=== PATIENT | female | born 1950 | race Caucasian/White ===

== ENCOUNTER → 2017-01-16 | Outpatient (CLI) | payer MEDICARE, BC ==
[2017-01-16 09:24] LABS: CH 26.9; CHCM 30.8; HCT 41.2 % (34.0-46.0); HDW 2.58; HGB 12.6 gm/dL (11.4-16.0); Hypochromasia Slight; MCH 26.8 pg (25.0-35.0); MCHC 30.7 g/dL (31.0-37.0); MCV 87.5 fL (80.0-100.0); Mean Platelet Volume 7.3; RBC 4.71 m/uL (3.80-5.40); RDW 14.3 % (11.5-15.5); WBC 5.4 k/uL (3.8-10.6)
[2017-01-16 10:31] LABS: Appearance,Urine Clear (Clear); Bilirubin,Urine Negative (Negative); Glucose,Urine (UA) Negative (Negative); Ketones,Urine Negative (Negative); Leukocyte Esterase,Urine Negative (Negative); Nitrite,Urine Negative (Negative); Protein,Urine Negative (Negative); Specific Gravity,Urine 1.019 (1.001-1.035); UA Billing (MACRO vs. MICRO) CHEM; Urobilinogen,Urine <2.0 mg/dL (<2.0)
[2017-01-16 10:43] LABS: Anion Gap 10 mmol/L; Blood Urea Nitrogen 31 mg/dL (7-17); Calcium 9.6 mg/dL (8.4-10.2); Carbon Dioxide 30 mmol/L (22-30); Chloride 103 mmol/L (98-107); Glucose 129 mg/dL (74-99); Iron 54 ug/dL (37-170); Magnesium 1.8 mg/dL (1.6-2.3); Non-African American GFR(MDRD) 55 (>60 ml/min/1.73 sqM); Phosphorous 3.9 mg/dL (2.5-4.5); Potassium 4.7 mmol/L (3.5-5.1); Sodium 143 mmol/L (137-145)
[2017-01-16 10:51] LABS: % Iron Saturation 18.9 % (20-50); Total Iron Binding Capacity 285 ug/dL (265-497)
[2017-01-16 11:31] LABS: Hemoglobin A1C 7.4 % (4.2-6.1)
== END | disposition home or self-care (01) ==
LOC: LABWHC1 08:41
PROVIDERS: ATTEND Nurse Practitioner Family
DX: N18.3 Chronic kidney disease, stage 3 (moderate) (principal); N39.0 Urinary tract infection, site not specified; N25.81 Secondary hyperparathyroidism of renal origin; E55.9 Vitamin D deficiency, unspecified; M10.9 Gout, unspecified; D63.1 Anemia in chronic kidney disease; Z94.0 Kidney transplant status
CPT/HCPCS: 36415; 80048; 80197; 81003; 82043; 82306; 82728; 83036; 83540; 83550; 83735; 83970; 84100; 84550; 85027; 87086

== ENCOUNTER → 2017-01-20 | Outpatient (CLI) | payer MEDICARE, BC | END | disposition home or self-care (01) | LOC: LABWHC1 07:51 | PROVIDERS: ATTEND Internal Medicine Nephrology | DX: Z94.0 Kidney transplant status (principal) | CPT/HCPCS: 36415; 80197 ==

== ENCOUNTER → 2017-01-29 | Outpatient (CLI) | payer MEDICARE, BC | END | disposition home or self-care (01) | LOC: LABWHC1 08:34 | PROVIDERS: ATTEND Internal Medicine Nephrology | DX: Z48.22 Encounter for aftercare following kidney transplant (principal) | CPT/HCPCS: 36415; 80197 ==

== ENCOUNTER → 2017-02-06 | Outpatient (CLI) | payer MEDICARE, BC | END | disposition home or self-care (01) | LOC: LABWHC1 08:39 | PROVIDERS: ATTEND Nurse Practitioner Family | DX: Z48.22 Encounter for aftercare following kidney transplant (principal) | CPT/HCPCS: 36415; 80197 ==

== ENCOUNTER → 2017-02-15 | Outpatient (CLI) | payer MEDICARE, BC | END | disposition home or self-care (01) | LOC: LABWHC1 08:37 | PROVIDERS: ATTEND Internal Medicine Nephrology | DX: Z48.22 Encounter for aftercare following kidney transplant (principal); Z94.0 Kidney transplant status | CPT/HCPCS: 36415; 80197 ==

== ENCOUNTER → 2017-02-25 | Outpatient (CLI) | payer MEDICARE, BC | LOC: LABWHC1 08:42 | PROVIDERS: ATTEND Nurse Practitioner Family | DX: Z48.22 Encounter for aftercare following kidney transplant (principal); Z94.0 Kidney transplant status | CPT/HCPCS: 36415; 80197 ==

== ENCOUNTER → 2017-05-12 | Outpatient (CLI) | payer MEDICARE, BC ==
[2017-05-12 09:23] LABS: Basophils # (A) 0.1 k/uL (0-0.2); Basophils % (A) 2 %; CH 27.9; CHCM 32.1; Eosinophils # (A) 0.6 k/uL (0-0.7); Eosinophils % (A) 16 %; HCT 40.9 % (34.0-46.0); HDW 2.44; HGB 13.3 gm/dL (11.4-16.0); Luc # (Auto) 0.13; Luc % (Auto) 3; Lymphocytes # (A) 1.1 k/uL (1.0-4.8); Lymphocytes % (A) 29 %; MCH 28.4 pg (25.0-35.0); MCHC 32.5 g/dL (31.0-37.0); MCV 87.2 fL (80.0-100.0); Mean Platelet Volume 7.4; Monocytes # (A) 0.2 k/uL (0-1.0); Monocytes % (A) 5 %; Neutrophils # (A) 1.7 k/uL (1.3-7.7); Neutrophils % (A) 45 %; RBC 4.69 m/uL (3.80-5.40); RDW 13.3 % (11.5-15.5); WBC 3.7 k/uL (3.8-10.6)
[2017-05-12 10:24] LABS: Appearance,Urine Clear (Clear); Bilirubin,Urine Negative (Negative); Glucose,Urine (UA) Negative (Negative); Ketones,Urine Negative (Negative); Leukocyte Esterase,Urine Negative (Negative); Nitrite,Urine Negative (Negative); PH, Urine 6.5 (5.0-8.0); Protein,Urine Negative (Negative); Specific Gravity,Urine 1.017 (1.001-1.035); UA Billing (MACRO vs. MICRO) CHEM; Urobilinogen,Urine <2.0 mg/dL (<2.0)
[2017-05-12 11:38] LABS: Calcium 9.4 mg/dL (8.4-10.2); Magnesium 1.8 mg/dL (1.6-2.3); Phosphorous 4.1 mg/dL (2.5-4.5); Potassium 4.8 mmol/L (3.5-5.1); Uric Acid 5.7 mg/dL (3.7-7.4)
[2017-05-12 13:18] LABS: % Iron Saturation 15.5 % (20-50)
== END | disposition home or self-care (01) ==
LOC: LABWHC1 08:39
PROVIDERS: ATTEND Internal Medicine Nephrology
DX: D64.9 Anemia, unspecified (principal); E55.9 Vitamin D deficiency, unspecified; N25.81 Secondary hyperparathyroidism of renal origin; M10.9 Gout, unspecified; N39.0 Urinary tract infection, site not specified; Z94.0 Kidney transplant status
CPT/HCPCS: 36415; 80048; 80197; 81003; 82306; 82728; 83540; 83550; 83735; 83970; 84100; 84550; 85025

== ENCOUNTER → 2017-05-21 | Outpatient (CLI) | payer MEDICARE, BC ==
--- NOTE | 2017-05-24 10:12 | MM ---
Reason for exam: screening (asymptomatic). Last mammogram was performed 1 year and 11 months ago. History: Patient is postmenopausal and has history of other cancer at age 53. Family history of breast cancer in paternal aunt. Physical Findings: A clinical breast exam by your physician is recommended on an annual basis and results should be correlated with mammographic findings. MG 3D Screening Mammo W/Cad Bilateral CC and MLO view(s) were taken. XCCL view(s) were taken of the right breast. Prior study comparison: June 06, 2015, bilateral MG screening mammo w CAD. June 27, 2013, mammogram, performed at [facility]. There are scattered fibroglandular densities. Finding: There are stable typically benign calcifications. No significant changes in finding since June 06, 2015 and June 27, 2013. ASSESSMENT: Benign, BI-RAD 2 RECOMMENDATION: Routine screening mammogram of both breasts in 1 year.
== END | disposition home or self-care (01) ==
LOC: RADMAMWWP 13:07
PROVIDERS: ATTEND Family Medicine
DX: Z12.31 Encounter for screening mammogram for malignant neoplasm of breast (principal)
CPT/HCPCS: 77063; G0202

== ENCOUNTER → 2017-05-25 | Outpatient (CLI) | payer MEDICARE, BC | END | disposition home or self-care (01) | LOC: LABWHC1 08:37 | PROVIDERS: ATTEND Nurse Practitioner Family | DX: Z48.22 Encounter for aftercare following kidney transplant (principal); Z94.0 Kidney transplant status | CPT/HCPCS: 36415; 80197 ==

== ENCOUNTER → 2017-06-04 | Outpatient (CLI) | payer MEDICARE, BC | END | disposition home or self-care (01) | LOC: LABWHC1 08:37 | PROVIDERS: ATTEND Nurse Practitioner Family | DX: Z48.22 Encounter for aftercare following kidney transplant (principal); Z94.0 Kidney transplant status | CPT/HCPCS: 36415; 80197 ==

== ENCOUNTER → 2017-10-21 | Outpatient (CLI) | payer MEDICARE, BC ==
[2017-10-21 09:30] LABS: Appearance,Urine Cloudy (Clear); Bilirubin,Urine Negative (Negative); Blood,Urine Negative (Negative); Color,Urine Yellow; Glucose,Urine (UA) Negative (Negative); Ketones,Urine Negative (Negative); Leukocyte Esterase,Urine Trace (Negative); Mucus,Urine Rare /hpf; Nitrite,Urine Negative (Negative); PH, Urine 6.5 (5.0-8.0); Protein,Urine Negative (Negative); Specific Gravity,Urine 1.015 (1.001-1.035); Squamous Epithelial Cell,Urine 10 /hpf (0-4); Urobilinogen,Urine <2.0 mg/dL (<2.0); WBC,Urine 1 /hpf (0-5)
[2017-10-21 09:33] LABS: Calcium 9.7 mg/dL (8.4-10.2); Magnesium 1.7 mg/dL (1.6-2.3); Potassium 5.4 mmol/L (3.5-5.1)
[2017-10-21 10:10] LABS: Basophils # (A) 0.1 k/uL (0-0.2); Basophils % (A) 2 %; Eosinophils # (A) 0.3 k/uL (0-0.7); Eosinophils % (A) 8 %; HCT 41.4 % (34.0-46.0); HGB 13.3 gm/dL (11.4-16.0); Lymphocytes # (A) 1.1 k/uL (1.0-4.8); Lymphocytes % (A) 31 %; MCH 27.9 pg (25.0-35.0); Monocytes # (A) 0.3 k/uL (0-1.0); Monocytes % (A) 8 %; Neutrophils # (A) 1.8 k/uL (1.3-7.7); Neutrophils % (A) 50 %; Platelet Count 205 k/uL (150-450); RBC 4.76 m/uL (3.80-5.40); WBC 3.5 k/uL (3.8-10.6)
[2017-10-21 16:25] LABS: Hemoglobin A1C 8.7 % (4.0-6.0)
[2017-10-21 17:06] LABS: Iron Saturation 28.66 (12.00-45.00)
[2017-10-21 17:13] LABS: Vitamin D 25 Hydroxy 34.5 ng/mL (30.0-100.0)
[2017-10-21 18:17] LABS: Parathyroid Hormone Intact 48.7 pg/mL (14.0-72.0)
== END | disposition home or self-care (01) ==
LOC: LABWHC1 08:34
PROVIDERS: ATTEND Nurse Practitioner Family
DX: E11.65 Type 2 diabetes mellitus with hyperglycemia (principal); D64.9 Anemia, unspecified; E55.9 Vitamin D deficiency, unspecified; M10.9 Gout, unspecified; Z94.0 Kidney transplant status
CPT/HCPCS: 36415; 80048; 80197; 81001; 82306; 82728; 83036; 83540; 83550; 83735; 83970; 84100; 84550; 85025

== ENCOUNTER 2017-11-26 03:52 | Inpatient (IN) | payer MEDICARE, BC ==
[2017-11-26] MEDS ORDERED: ACETAMINOPHEN TAB 500 MG TAB PO STA (04:29)
--- NOTE | 2017-11-26 04:32 | ED ---
General Adult HPI - General Chief complaint: Dizziness Stated complaint: Fever, dizziness Time Seen by Provider: 11/26/17 04:27 Source: patient, EMS, RN notes reviewed Mode of arrival: EMS Limitations: no limitations - History of Present Illness Initial comments: Patient is a pleasant 67-year-old female presenting to the emergency department with dizziness. Symptoms of been present for the past 3 days. Oozing this only occurs when she stands up and she feels lightheaded. Patient has had similar symptoms previously associated with urinary tract infections. Patient is concerned that she may have a urinary tract infection. Patient has urinary frequency and odor to urine. No dysuria. No confusion or isolated area of weakness. - Related Data Home Medications Medication Instructions Recorded Confirmed Cholecalciferol [Vitamin D3] 2,000 unit PO DAILY 03/14/14 11/26/17 Insulin Detemir [Levemir] 20 unit SQ HS 03/14/14 11/26/17 Magnesium Oxide [Mag-Ox] 500 mg PO BID 03/14/14 11/26/[address] [Myfortic] 360 mg PO BID 03/14/14 11/26/17 Simvastatin [Zocor] 20 mg PO HS 03/14/14 11/26/17 Tacrolimus [Prograf] 1 mg PO HS 03/14/14 11/26/17 Insulin Detemir [Levemir] 10 unit SQ QA 03/15/14 11/26/17 Aspirin 325 mg PO DAILY 05/06/15 11/26/17 Brimonidine Tartrate/Timolol 1 drop RIGHT EYE Q12H 12/21/15 11/26/17 [Combigan 0.2%/0.5% [facility]] Calcitriol [Rocaltrol] 0.25 mcg PO TU 12/21/15 11/26/17 INSULIN LISPRO (HumaLOG) [HumaLOG] See Protocol SQ ACHS 03/21/16 11/26/17 Cranberry Fruit Extract [Cranberry] 500 mg PO DAILY 07/28/16 11/26/17 Isosorbide Dinitrate 30 mg PO DAILY 07/28/16 11/26/17 diphenhydrAMINE [Benadryl] 25 mg PO DAILY PRN 07/28/16 11/26/17 Tacrolimus [Prograf] 2 mg PO BID 09/13/17 11/26/17 Previous Rx's Medication Instructions Recorded Nitroglycerin Sl Tabs [Nitrostat] 0.4 mg SUBLINGUAL Q5M PRN #20 tab 12/24/15 Allergies Allergy/AdvReac Type Severity Reaction Status Date / Time metoclopramide HCl Allergy Unknown Verified 11/26/17 04:05 [From Reglan] grapefruit [Grapefruit] AdvReac reaction Verified 11/26/17 04:05 with simvastatin ibuprofen AdvReac kidney Verified 11/26/17 04:05 failure/transplant Review of Systems ROS Statement: Those systems with pertinent positive or pertinent negative responses have been documented in the HPI. ROS Other: All systems not noted in ROS Statement are negative. Constitutional: Reports: fever, chills Eyes: Denies: eye pain ENT: Denies: ear pain Respiratory: Denies: cough Cardiovascular: Denies: chest pain Endocrine: Reports: fatigue Gastrointestinal: Denies: abdominal pain Genitourinary: Reports: urgency, frequency Musculoskeletal: Denies: back pain Skin: Denies: rash Neurological: Denies: headache, weakness, confusion Past Medical History Past Medical History: Coronary Artery Disease (CAD), Diabetes Mellitus, Hyperlipidemia, Hypertension Additional Past Medical History / Comment(s): glaucoma, renal failure resolved after transplant History of Any Multi-Drug Resistant Organisms: None Reported Past Surgical History: Appendectomy, Cholecystectomy, Coronary Bypass/CABG, Hernia Repair, Hysterectomy Additional Past Surgical History / Comment(s): right kidney transplant Additional Past Anesthesia/Blood Transfusion Reaction / Comment(s): unknown Past Psychological History: No Psychological Hx Reported Smoking Status: Former smoker Past Alcohol Use History: None Reported Past Drug Use History: None Reported - Past Family History Mother Additional Family Medical History / Comment(s): mom had heart disease Father Additional Family Medical History / Comment(s): lung and pancreatic cancer General Exam Limitations: no limitations General appearance: alert, in no apparent distress Head exam: Present: atraumatic Eye exam: Present: normal appearance, PERRL, EOMI. Absent: nystagmus ENT exam: Present: normal oropharynx Neck exam: Present: normal inspection Respiratory exam: Present: normal lung sounds bilaterally Cardiovascular Exam: Present: regular rate, normal rhythm GI/Abdominal exam: Present: soft. Absent: distended, tenderness Extremities exam: Present: normal inspection. Absent: pedal edema, calf tenderness Neurological exam: Present: alert Psychiatric exam: Present: normal affect, normal mood Skin exam: Present: normal color Course Vital Signs 11/26/17 03:56 Temperature 101 F H Pulse Rate 94 Respiratory 18 Rate Blood Pressure 134/61 O2 Sat by Pulse 94 L Oximetry - Reevaluation(s) Reevaluation #1: 11/26/17 05:45 Patient does meet sepsis criteria diagnosed at 5:45 AM. Blood culture and lactic acid have been ordered. IV antibiotics will be ordered. EKG Findings - EKG Comments: EKG Findings:: Normal sinus rhythm 89. SC 160. QRS 104. QT 346. QTc 420. Left axis. Septal Q waves. Lateral T wave inversion. Medical Decision Making - Medical Decision Making Reevaluated and resting comfortably in bed. Labwork is concerning for dehydration and urinary tract infection. Patient updated on results and plan. Case was discussed in detail with Dr. ramsey, who will admit for Dr. Wong. - Lab Data Result diagrams: 11/26/17 04:24 11/26/17 04:24 Lab Results 11/26/17 11/26/17 11/26/17 Range/Units 04:24 04:24 04:24 WBC 7.9 (3.8-10.6) k/uL RBC 4.50 (3.80-5.40) m/uL Hgb 12.5 (11.4-16.0) gm/dL Hct 38.4 (34.0-46.0) % MCV 85.5 (80.0-100.0) fL MCH 27.8 (25.0-35.0) pg MCHC 32.5 (31.0-37.0) g/dL RDW 12.4 (11.5-15.5) % Plt Count 143 L (150-450) k/uL Neutrophils % 80 % Lymphocytes % 10 % Monocytes % 7 % Eosinophils % 0 % Basophils % 1 % Neutrophils # 6.3 (1.3-7.7) k/uL Lymphocytes # 0.8 L (1.0-4.8) k/uL Monocytes # 0.5 (0-1.0) k/uL Eosinophils # 0.0 (0-0.7) k/uL Basophils # 0.0 (0-0.2) k/uL PT (9.0-12.0) sec INR (<1.2) APTT (22.0-30.0) sec Sodium 132 L (137-145) mmol/L Potassium 4.3 (3.5-5.1) mmol/L Chloride 97 L (98-107) mmol/L Carbon Dioxide 26 (22-30) mmol/L Anion Gap 9 mmol/L BUN 60 H (7-17) mg/dL Creatinine 2.00 H (0.52-1.04) mg/dL Est GFR (MDRD) Af Amer 30 (>60 ml/min/1.73 sqM) Est GFR (MDRD) Non-Af 25 (>60 ml/min/1.73 sqM) Glucose 177 H (74-99) mg/dL Plasma Lactic Acid Silvino 0.8 (0.7-2.0) mmol/L Calcium 9.1 (8.4-10.2) mg/dL Total Bilirubin 0.6 (0.2-1.3) mg/dL AST 27 (14-36) U/L ALT 27 (9-52) U/L Alkaline Phosphatase 87 (38-126) U/L Total Protein 6.9 (6.3-8.2) g/dL Albumin 3.4 L (3.5-5.0) g/dL Urine Color Urine Appearance (Clear) Urine pH (5.0-8.0) Ur Specific [place] (1.001-1.035) Urine Protein (Negative) Urine Glucose (UA) (Negative) Urine Ketones (Negative) Urine Blood (Negative) Urine Nitrite (Negative) Urine Bilirubin (Negative) Urine Urobilinogen (<2.0) mg/dL Ur Leukocyte Esterase (Negative) Urine RBC (0-5) /hpf Urine WBC (0-5) /hpf Urine WBC Clumps (None) /hpf Ur Squamous Epith Cells (0-4) /hpf Urine Bacteria (None) /hpf Urine Mucus (None) /hpf Influenza Type A RNA (Not Detectd) Influenza Type B (PCR) (Not Detectd) 11/26/17 11/26/17 11/26/17 Range/Units 04:36 04:50 05:18 WBC (3.8-10.6) k/uL RBC (3.80-5.40) m/uL Hgb (11.4-16.0) gm/dL Hct (34.0-46.0) % MCV (80.0-100.0) fL MCH (25.0-35.0) pg MCHC (31.0-37.0) g/dL RDW (11.5-15.5) % Plt Count (150-450) k/uL Neutrophils % % Lymphocytes % % Monocytes % % Eosinophils % % Basophils % % Neutrophils # (1.3-7.7) k/uL Lymphocytes # (1.0-4.8) k/uL Monocytes # (0-1.0) k/uL Eosinophils # (0-0.7) k/uL Basophils # (0-0.2) k/uL PT 10.3 (9.0-12.0) sec INR 1.1 (<1.2) APTT 23.0 (22.0-30.0) sec Sodium (137-145) mmol/L Potassium (3.5-5.1) mmol/L Chloride (98-107) mmol/L Carbon Dioxide (22-30) mmol/L Anion Gap mmol/L BUN (7-17) mg/dL Creatinine (0.52-1.04) mg/dL Est GFR (MDRD) Af Amer (>60 ml/min/1.73 sqM) Est GFR (MDRD) Non-Af (>60 ml/min/1.73 sqM) Glucose (74-99) mg/dL Plasma Lactic Acid Silvino (0.7-2.0) mmol/L Calcium (8.4-10.2) mg/dL Total Bilirubin (0.2-1.3) mg/dL AST (14-36) U/L ALT (9-52) U/L Alkaline Phosphatase (38-126) U/L Total Protein (6.3-8.2) g/dL Albumin (3.5-5.0) g/dL Urine Color Yellow Urine Appearance Turbid H (Clear) Urine pH 5.5 (5.0-8.0) Ur Specific [place] 1.016 (1.001-1.035) Urine Protein 1+ H (Negative) Urine Glucose (UA) Negative (Negative) Urine Ketones Negative (Negative) Urine Blood Small H (Negative) Urine Nitrite Positive H (Negative) Urine Bilirubin Negative (Negative) Urine Urobilinogen <2.0 (<2.0) mg/dL Ur Leukocyte Esterase Large H (Negative) Urine RBC 2 (0-5) /hpf Urine WBC >182 H (0-5) /hpf Urine WBC Clumps Moderate H (None) /hpf Ur Squamous Epith Cells 1 (0-4) /hpf Urine Bacteria Many H (None) /hpf Urine Mucus Rare H (None) /hpf Influenza Type A RNA Not Detected (Not Detectd) Influenza Type B (PCR) Not Detected (Not Detectd) - Radiology Data Interpreted by me: Chest x-ray shows no acute abnormality. Radiology report pending. Critical Care Time Critical Care Time: Yes Total Critical Care Time: 31 Disposition Clinical Impression: UTI (urinary tract infection), Sepsis, Dehydration Disposition: ADMITTED IP TO THIS HOSP Referrals: Joel Wong DO [Primary Care Provider] - 1-2 days Decision Time: 05:46
[2017-11-26 04:39] LABS: Basophils % (A) 1 %; Eosinophils % (A) 0 %; HCT 38.4 % (34.0-46.0); HGB 12.5 gm/dL (11.4-16.0); Lymphocytes # (A) 0.8 k/uL (1.0-4.8); Lymphocytes % (A) 10 %; MCH 27.8 pg (25.0-35.0); MCHC 32.5 g/dL (31.0-37.0); MCV 85.5 fL (80.0-100.0); Mean Platelet Volume 8.4; Monocytes # (A) 0.5 k/uL (0-1.0); Monocytes % (A) 7 %; Neutrophils # (A) 6.3 k/uL (1.3-7.7); Neutrophils % (A) 80 %; Platelet Count 143 k/uL (150-450); RDW 12.4 % (11.5-15.5); WBC 7.9 k/uL (3.8-10.6)
[2017-11-26 04:48] LABS: Albumin 3.4 g/dL (3.5-5.0); Calcium 9.1 mg/dL (8.4-10.2); Potassium 4.3 mmol/L (3.5-5.1); Total Bilirubin 0.6 mg/dL (0.2-1.3); Total Protein 6.9 g/dL (6.3-8.2)
[2017-11-26] MEDS: SODIUM CHLORIDE 0.9% 500 ML IV SCH ×2 (04:52→05:12)
[2017-11-26 04:54] LABS: Appearance,Urine Turbid (Clear); Bacteria,Urine Many /hpf; Bilirubin,Urine Negative (Negative); Blood,Urine Small (Negative); Color,Urine Yellow; Glucose,Urine (UA) Negative (Negative); Ketones,Urine Negative (Negative); Leukocyte Esterase,Urine Large (Negative); Mucus,Urine Rare /hpf; Nitrite,Urine Positive (Negative); PH, Urine 5.5 (5.0-8.0); Protein,Urine 1+ (Negative); RBC,Urine 2 /hpf (0-5); Specific Gravity,Urine 1.016 (1.001-1.035); Squamous Epithelial Cell,Urine 1 /hpf (0-4); Urobilinogen,Urine <2.0 mg/dL (<2.0); WBC,Urine >182 /hpf (0-5)
[2017-11-26 05:43] LABS: INR 1.1 (<1.2); Prothrombin Time 10.3 sec (9.0-12.0)
[2017-11-26] MEDS ORDERED: NALOXONE 0.4 MG/ML 1 ML VIAL IV PRN (05:47)
[2017-11-26] MEDS ORDERED: cefTRIAXone IN SWFI 1,000 MG/10 ML SYRINGE IVP STA (05:48)
--- NOTE | 2017-11-26 06:11 | XR ---
EXAM: XR Chest, 2 Views CLINICAL HISTORY: ITS.REASON XR Reason: Fever TECHNIQUE: Frontal and lateral views of the chest. COMPARISON: 10/08/16 FINDINGS: Lungs: Unremarkable. No consolidation. Pleural space: Unremarkable. No pneumothorax. Heart: Cardiac silhouette is normal size. Sternotomy wires. Post- CABG changes. Mediastinum: Unremarkable. Bones/joints: See above. IMPRESSION: No acute radiographic findings.
[2017-11-26] MEDS ORDERED: cefTRIAXone IN SWFI 1,000 MG/10 ML SYRINGE IVP SCH (07:00)
[2017-11-26 07:52] LABS: Glucose,Whole Blood 147 mg/dL (75-99)
[2017-11-26] MEDS ORDERED: diphenhydrAMINE 25 MG CAP PO PRN (08:03)
[2017-11-26] MEDS ORDERED: NITROGLYCERIN SL TABS 0.4 MG TAB SUBLINGUAL PRN (08:03)
[2017-11-26] MEDS: SODIUM CHLORIDE 0.9% 1,000 ML IV SCH ×2 (08:09→14:35)
[2017-11-26] MEDS ORDERED: [UNRECOGNIZED DRUG - OTHER] RIGHT EYE SCH (08:15)
[2017-11-26] MEDS ORDERED: TIMOLOL RIGHT EYE SCH (08:15)
[2017-11-26] MEDS ORDERED: BRIMONIDINE TARTRATE RIGHT EYE SCH (08:15)
[2017-11-26] MEDS: INSULIN DETEMIR 100 UNIT/ML 10 ML VIAL SQ SCH ×2 (08:38→20:50)
[2017-11-26] MEDS: TACROLIMUS 1 MG CAP PO SCH ×2 (08:38→20:36)
[2017-11-26] MEDS: MAGNESIUM OXIDE 400 MG TAB PO SCH ×2 (08:38→20:37)
[2017-11-26] MEDS: ASPIRIN 81 MG PO SCH (08:38)
[2017-11-26] MEDS: ISOSORBIDE MONONITRATE ER 30 MG TAB.ER.24H PO SCH (08:38)
[2017-11-26] MEDS: BRIMONIDINE TARTRATE 0.2% DROPS 5 ML BTL RIGHT EYE SCH ×2 (08:38→20:42)
[2017-11-26] MEDS: TIMOLOL 0.5% OPHTH DROPS 5 ML BTL RIGHT EYE SCH ×2 (08:38→20:42)
[2017-11-26] MEDS: MYCOPHENOLATE SODIUM DR 180 MG TABLET.DR PO SCH ×2 (08:38→20:36)
[2017-11-26] MEDS ORDERED: ENOXAPARIN 40 MG/0.4 ML SYRINGE SQ SCH (09:00)
[2017-11-26] MEDS: CHOLECALCIFEROL 1,000 UNIT TAB PO SCH (11:36)
[2017-11-26 12:14] LABS: Glucose,Whole Blood 190 mg/dL (75-99)
[2017-11-26] MEDS: INSULIN ASPART 100 UNIT/ML 1 ML 10 ML VIAL SQ SCH ×3 (13:21→20:50)
[2017-11-26] MEDS: LACTATED RINGERS 1,000 ML IV SCH (15:21)
--- NOTE | 2017-11-26 16:10 | HP ---
HISTORY AND PHYSICAL DATE OF ADMISSION: November 26, 2017. PRESENTING COMPLAINT: Weak and tired. HISTORY OF PRESENTING COMPLAINT: This is a 67-year-old patient of Dr. Wong whose chronic stable medical conditions include coronary artery disease, diabetes, hyperlipidemia, hypertension, normally uses a walker to get about. He presented with increasing urinary frequency, burning, tired, run down, not feeling well, found to have a fever of 101 in the ER and a urine infection, started on IV ceftriaxone. The patient feels tired and run down. REVIEW OF SYSTEMS: Constitutional: Tired. HEENT none. Respiratory nasal stuffiness. Cardiovascular none. Gastrointestinal none. Genitourinary as above. Musculoskeletal none. Dermatological and hematologic, lymphatic none. Psychiatry none. Neurological uses a walker. PAST MEDICAL HISTORY: Coronary artery disease from CABG, diabetes, hyperlipidemia, hypertension, right ankle, retinal bleed, decreased vision, renal failure, resolved on the right, renal transplant 2008, nephrolithiasis. PAST SURGICAL HISTORY: Appendectomy, cholecystectomy, coronary bypass, cardiac cath, hernia repair 2008, right kidney transplant, 4-vessel coronary bypass, umbilical hernia repair colonoscopy, left cataract removed. SOCIAL HISTORY: The patient resides with adult grandson who has autism but is functional. Uses a bus to get around. She uses a cane/walker. Patient smoked for about 30 years. Stopped in 2000. Alcohol none. FAMILY HISTORY: Coronary artery disease. HOME MEDICATIONS: 1. Insulin Lantus 10 units in the morning, 20 in the evening. 2. Imdur ER 30 mg a day. 3. Prograf 2 mg b.i.d. 4. Benadryl 25 p.o. daily p.r.n. 5. Zocor 20 mg q.h.s. 6. Nitrostat 0.4 sublingual q.5h p.r.n. 7. Myfortic 360 mg b.i.d. 8. Magnesium oxide 800 mg p.o. b.i.d. 9. Humalog per scale. 10.Cranberry 5 mg p.o. daily. 11.Vitamin D3 2000 units p.o. daily. 12.Rocaltrol 0.25 p.o. on Wednesday. 13.Combigan 0.25% 1 drop to right eye q.12h. 14.Aspirin 325 p.o. daily. ALLERGIES: TO REGLAN, , IBUPROFEN. PHYSICAL EXAMINATION: Vital signs on presentation: Temperature 100.1, pulse 94, respirations 18, blood pressure 134/61, pulse ox 94% on room air. General appearance: Well built, BMI 35.2, lying in bed, tired appearing. Eyes: Pupils are equal. Conjunctivae normal. HEENT: Oral cavity dry mucous membranes. Neck JVD not raised. Mass not palpable. Respiratory effort normal. Slightly decreased breath sounds. Cardiovascular 1st and 2nd sounds normal. No edema. ABDOMEN: Soft, nontender. Liver and spleen not palpable. Lymphatics no lymph nodes palpable in the neck or axilla. PSYCHIATRY: Alert and oriented x3. Mood and affect normal. Neurological: Pupils equal. Cranial nerves grossly intact. Power and sensation grossly intact. INVESTIGATIONS: White count 7.9, hemoglobin 12.5, platelets 143, potassium 4.3, BUN 60, creatinine 2.0. The patient's last creatinine was 1.28. UA grossly positive. Urine culture pending. ASSESSMENT: 1. Acute renal failure with creatinine going from 1.28-2 could be prerenal from decreased oral intake, dehydration. 2. Acute urinary tract infection. 3. Right renal transplant. 4. Coronary artery disease. Previous bypass. 5. Diabetes mellitus type 2, chronically on insulin. 6. Hyperlipidemia. 7. Essential hypertension. 8. Chronic kidney disease, stage III probably from diabetic nephropathy. 9. Diabetic retinopathy. 10.Nephrolithiasis. PLAN: Patient is currently on IV ceftriaxone. Home medications are resumed. Patient getting IV fluids. Care was discussed with the patient. Nephrology was consulted. Given that patient's renal transplant patient with acute renal failure, poor oral intake. The patient will need to be in the hospital for at least two nights. Care was discussed with the patient. Copy to Dr. Wong. MMODL / IJN: [id number] /
--- NOTE | 2017-11-26 16:22 | CONS ---
CONSULTATION REASON FOR CONSULT: Renal transplant. DATE OF CONSULTATION: 11/26/2017. HISTORY OF PRESENT ILLNESS: Patient is a 67-year-old female who has a history of living unrelated renal transplant in 2008 with baseline creatinine about 1.1 mg/dL. The patient was admitted to the hospital with complaints of weakness and dizziness. She also stated she was she had urinary frequency, which is usually a sign that she has urinary tract infection. Blood pressure is currently slightly on the lower side. Otherwise, no significant hypotension noted. The patient is currently maintained on IV fluids and antibiotics. Her UA was suggestive of an underlying urinary tract infection. Serum creatinine was 2.0 mg/dL this admission. Previous creatinine was 1.2 on October 21, and 1.1 previously on 05/12/2017. PAST MEDICAL HISTORY: Status post kidney transplant 2008, living unrelated, maintained on Myfortic, Prograf, CKD, mineral bone disorder, coronary artery disease, type 2 diabetes, hyperlipidemia, glaucoma. PAST SURGICAL HISTORY: Past surgical history of appendectomy, cholecystectomy, coronary artery bypass surgery, hernia repair, hysterectomy. Also had right kidney transplant. SOCIAL HISTORY: Patient is a former smoker. No history of drug abuse or alcohol abuse. MEDICATIONS: Medications at home included Prograf, Benadryl, Imdur, creatinine, cranberry tablets, insulin, calcitriol, aspirin, Zocor, Myfortic, Mag-Ox, insulin, vitamin D3. ALLERGIES: INCLUDE IBUPROFEN, REGLAN. PHYSICAL EXAMINATION: Patient is currently comfortable, awake, alert, and oriented x3, not in any acute distress. Blood pressure is 109/58, heart rate 78 per minute. She is afebrile. Examination of the heart S1, S2. Examination lungs bilateral breath sounds are heard. Abdomen is soft, nontender. Examination lower extremities shows no evidence of edema. CONTOUR GRINDER exam is grossly intact. LAB: Show sodium 132, potassium 4.3, serum creatinine 2.0, BUN was 60. Hemoglobin 12.5 g/dL. UA shows 1+ protein, WBCs more than 182. ASSESSMENT: 1. Acute kidney injury secondary to urinary tract infection, intravascular volume depletion. Continue IV fluids and IV antibiotics. Repeat labs in a.m. Check trough Prograf level. 2. Status post living unrelated renal transplant 2008. Maintained on Prograf and Myfortic with baseline creatinine about 1.1 mg/dL. 3. Chronic kidney disease mineral bone disorder maintained on calcitriol. 4. Urine tract infection. Urine culture is pending. Patient is maintained on Rocephin which we can continue. PLAN: Continue IV fluids. Continue IV antibiotics. Check trough Prograf level tomorrow morning and repeat labs in a.m. Thank you for this consultation. We will continue to follow the patient with you during her hospitalization. MMODL / IJN: [id number] /
[2017-11-26 17:32] LABS: Glucose,Whole Blood 199 mg/dL (75-99)
[2017-11-26] MEDS: ATORVASTATIN 10 MG TAB PO SCH (20:36)
[2017-11-26 20:40] LABS: Glucose,Whole Blood 172 mg/dL (75-99)
[2017-11-26] MEDS: ACETAMINOPHEN TAB 325 MG TAB PO PRN (22:51)
[2017-11-27] MEDS: ACETAMINOPHEN TAB 325 MG TAB PO PRN (04:59)
[2017-11-27] MEDS: LACTATED RINGERS 1,000 ML IV SCH ×2 (05:00→18:07)
[2017-11-27 07:07] VITALS: RESP 18
[2017-11-27 07:25] LABS: Glucose,Whole Blood 109 mg/dL (75-99)
[2017-11-27] MEDS: INSULIN ASPART 100 UNIT/ML 1 ML 10 ML VIAL SQ SCH ×4 (07:38→22:30)
[2017-11-27] MEDS: ASPIRIN 81 MG PO SCH (08:33)
[2017-11-27] MEDS: INSULIN DETEMIR 100 UNIT/ML 10 ML VIAL SQ SCH ×2 (08:33→22:30)
[2017-11-27] MEDS: BRIMONIDINE TARTRATE 0.2% DROPS 5 ML BTL RIGHT EYE SCH ×3 (08:33→20:20)
[2017-11-27] MEDS: TIMOLOL 0.5% OPHTH DROPS 5 ML BTL RIGHT EYE SCH ×3 (08:33→20:21)
[2017-11-27] MEDS: cefTRIAXone IN SWFI 1,000 MG/10 ML SYRINGE IVP SCH (08:33)
[2017-11-27] MEDS: TACROLIMUS 1 MG CAP PO SCH ×2 (08:34→20:20)
[2017-11-27] MEDS: ISOSORBIDE MONONITRATE ER 30 MG TAB.ER.24H PO SCH (08:34)
[2017-11-27] MEDS: MYCOPHENOLATE SODIUM DR 180 MG TABLET.DR PO SCH ×2 (08:34→20:20)
[2017-11-27] MEDS: MAGNESIUM OXIDE 400 MG TAB PO SCH ×2 (08:34→20:20)
[2017-11-27 08:58] LABS: Basophils % (A) 1 %; Eosinophils # (A) 0.1 k/uL (0-0.7); Eosinophils % (A) 1 %; HCT 37.9 % (34.0-46.0); HGB 12.3 gm/dL (11.4-16.0); Lymphocytes # (A) 0.7 k/uL (1.0-4.8); Lymphocytes % (A) 9 %; MCH 27.8 pg (25.0-35.0); MCHC 32.4 g/dL (31.0-37.0); MCV 85.8 fL (80.0-100.0); Mean Platelet Volume 8.6; Monocytes # (A) 0.6 k/uL (0-1.0); Monocytes % (A) 8 %; Neutrophils # (A) 5.5 k/uL (1.3-7.7); Neutrophils % (A) 79 %; Platelet Count 161 k/uL (150-450); RBC 4.42 m/uL (3.80-5.40); RDW 12.4 % (11.5-15.5)
[2017-11-27] MEDS ORDERED: ENOXAPARIN 30 MG/0.3 ML SYRINGE SQ SCH (09:00)
[2017-11-27 09:02] LABS: Calcium 8.9 mg/dL (8.4-10.2); Potassium 4.1 mmol/L (3.5-5.1)
[2017-11-27 11:43] LABS: Glucose,Whole Blood 146 mg/dL (75-99)
[2017-11-27] MEDS: CHOLECALCIFEROL 1,000 UNIT TAB PO SCH (12:36)
--- NOTE | 2017-11-27 17:23 | PN ---
PROGRESS NOTE DATE OF SERVICE: 11/27/2017 This 67-year-old woman who was admitted with acute renal failure, also had features of acute UTI. The creatinine is 1.2 at this time. The patient has history of right renal transplant also. PAST MEDICAL HISTORY: Reviewed. REVIEW OF SYSTEMS: CARDIOVASCULAR: No angina. RESPIRATORY: As mentioned. GI: As mentioned earlier. : As mentioned. NERVOUS SYSTEM: Diffusely weak. CURRENT MEDICATIONS: Reviewed and include: 1. Tylenol 650 q.6h p.r.n. 2. Aspirin 81 mg. 3. Lipitor 10 mg. 4. Alphagan eye drops. 5. Rocaltrol 0.25. 6. Rocephin 1 g subcu q.24h. 7. Vitamin D3 2000 daily. 8. Benadryl 25 mg a day. 9. Lovenox 40 mg subcu daily. 10.Levemir 10 units q.a.m. 11.Levemir 20 units subcu q.h.s. 12.Imdur 30 mg p.o. 13.Lactate Ringers. 14.Magnesium oxide. 15.Myfortic 360 b.i.d. 16.Narcan 0.2 q.2h p.r.n. 17.Prograf 2 mg b.i.d. 18.Timoptic 1 mg 1 drop b.i.d. PHYSICAL EXAM: Patient is alert, oriented x3. Pulse 81, blood pressure 120/63, respiration 18, temperature 97.2, T-max 100.4, pulse ox 93% on room air HEENT: Conjunctivae normal. Oral mucosa moist. NECK: No jugular venous distention. No carotid bruit. No lymph node enlargement. CARDIOVASCULAR: S1, S2. RESPIRATORY: Breath sounds diminished in the bases. A few scattered rhonchi and crackles. ABDOMEN: Soft, nontender. No mass palpable. LEGS: No edema, no swelling. NERVOUS SYSTEM: Higher functions as mentioned earlier, moves all 4 limbs, no focal deficits. LYMPHATIC: No lymphadenopathy in the neck, axillae, groin. SKIN: No ulcer, rash or bleeding. LABS: CBC within normal. Sodium 136, creatinine 1.20. ASSESSMENT: 1. Acute renal failure secondary to prerenal and diminished p.o. intake. 2. Acute urinary tract infection. Gram-negative urinary tract infection with sepsis. 3. Right renal transplant. 4. History of coronary artery disease, CABG. 5. Diabetes mellitus type 2. 6. Hyperlipidemia. 7. Hypertension. 8. Chronic kidney disease stage III from diabetic nephropathy. 9. Diabetic retinopathy. 10.Nephrolithiasis. 11.Hyponatremia. RECOMMENDATIONS AND DISCUSSION: This 67-year-old woman who presented with multiple complex medical issues, will monitor the patient closely. Continue the current management and symptomatic treatment. Patient follows with Dr. Wong in the outpatient setting. I would recommend continue the antibiotics. The patient is currently on Rocephin. I would also recommend finalize the urine culture, which is possibly gram-negative. Monitor creatinine closely. Continue the rest of medications. DVT prophylaxis. Guarded prognosis because of multiple complex medical issues. Further recommendations to follow. Home medications are noted. MMODL / IJN: [id number] /
[2017-11-27 17:35] LABS: Glucose,Whole Blood 155 mg/dL (75-99)
[2017-11-27] MEDS: ATORVASTATIN 10 MG TAB PO SCH (20:21)
--- NOTE | 2017-11-27 20:38 | PN ---
PROGRESS NOTE The patient is seen for followup for acute kidney injury. She is status post kidney transplant. The patient was admitted with a urinary tract infection. She is maintained on IV fluids and IV antibiotics. Serum creatinine was 2.0 on initial admission. It is now down to 1.2. The patient states she is feeling well, but is still a bit weak. EXAMINATION: Blood pressure is 120/60, heart rate 81 per minute. She is afebrile. HEART: S1, S2. LUNGS: Bilateral breath sounds are heard. Abdomen is soft, nontender. Lower extremities show no evidence of edema. WATER RESOURCE AGENT is grossly intact. Patient moving all 4 extremities. LABS: Show sodium 136, potassium 4.1, BUN 39, serum creatinine 1.2. Hemoglobin 12.3 g/dL. ASSESSMENT: 1. Acute kidney injury associated with intravascular volume depletion and urinary tract infection, currently improved. Renal function is close to back to baseline. 2. Status post living unrelated renal transplant in 2008, currently on Prograf and Myfortic. 3. Chronic kidney disease mineral bone disorder maintained on calcitriol. 4. Urine tract infection. Urine culture growing gram-negative bacilli. Maintained on Rocephin. PLAN: Continue IV fluids. Continue antibiotics. Possible discharge tomorrow. Renal function is back to baseline. MMODL / IJN: [id number] /
[2017-11-27 20:52] LABS: Glucose,Whole Blood 194 mg/dL (75-99)
[2017-11-28 06:59] LABS: Glucose,Whole Blood 99 mg/dL (75-99)
[2017-11-28 07:29] VITALS: BP 137/77; PULSE 78; TEMP 98.7
[2017-11-28] MEDS ORDERED: ENOXAPARIN 40 MG/0.4 ML SYRINGE SQ SCH (09:00)
[2017-11-28] MEDS: MAGNESIUM OXIDE 400 MG TAB PO SCH (09:00)
[2017-11-28] MEDS: TIMOLOL 0.5% OPHTH DROPS 5 ML BTL RIGHT EYE SCH (09:00)
[2017-11-28] MEDS: cefTRIAXone IN SWFI 1,000 MG/10 ML SYRINGE IVP SCH (09:00)
[2017-11-28] MEDS: MYCOPHENOLATE SODIUM DR 180 MG TABLET.DR PO SCH (09:00)
[2017-11-28] MEDS: ASPIRIN 81 MG PO SCH (09:00)
[2017-11-28] MEDS: ISOSORBIDE MONONITRATE ER 30 MG TAB.ER.24H PO SCH (09:00)
[2017-11-28] MEDS: BRIMONIDINE TARTRATE 0.2% DROPS 5 ML BTL RIGHT EYE SCH (09:00)
[2017-11-28] MEDS: TACROLIMUS 1 MG CAP PO SCH (09:00)
[2017-11-28] MEDS: INSULIN ASPART 100 UNIT/ML 1 ML 10 ML VIAL SQ SCH ×2 (09:00→12:47)
[2017-11-28] MEDS: INSULIN DETEMIR 100 UNIT/ML 10 ML VIAL SQ SCH (09:01)
[2017-11-28] MEDS: LACTATED RINGERS 1,000 ML IV SCH (09:02)
[2017-11-28 09:38] LABS: Anion Gap 8 mmol/L; Blood Urea Nitrogen 29 mg/dL (7-17); Calcium 8.9 mg/dL (8.4-10.2); Carbon Dioxide 29 mmol/L (22-30); Chloride 100 mmol/L (98-107); Glucose 110 mg/dL (74-99); Potassium 4.5 mmol/L (3.5-5.1); Sodium 137 mmol/L (137-145)
[2017-11-28 12:01] LABS: Glucose,Whole Blood 131 mg/dL (75-99)
[2017-11-28] MEDS: CHOLECALCIFEROL 1,000 UNIT TAB PO SCH (12:45)
[2017-11-28] MEDS ORDERED: INFLUENZA VACCINE (6 MOS+) 60 MCG/0.5 ML SYRINGE IM ONE (12:56)
--- NOTE | 2017-11-28 15:07 | DS ---
DISCHARGE SUMMARY FINAL DIAGNOSES: 1. Acute urinary tract infection secondary to E coli, present on admission, with sepsis present on admission. 2. Acute renal failure possibly secondary to prerenal and with diminished p.o. intake. 3. Right renal transplant. 4. History of coronary artery disease, CABG. 5. Diabetes mellitus type 2. 6. Hyperlipidemia. 7. Hypertension. 8. Chronic kidney disease, stage III from diabetic nephropathy. 9. Diabetic retinopathy. 10.Nephrolithiasis. 11.Hyponatremia. DISCHARGE DISPOSITION: Patient is being discharged in stable condition with guarded prognosis. Nephrology cleared the patient for discharge. HISTORY OF PRESENT ILLNESS: This 67-year-old woman with a past medical history of multiple medical problems being followed by Dr. Joel Wong in the outpatient setting was admitted with features of acute renal failure and UTI. E. coli is grown from the culture. Patient treated with IV antibiotics and IV fluids. Nephrology saw the patient. Patient improved significantly. Patient discharged in stable condition with guarded prognosis with the following advice. On exam, vitals are stable. CARDIOVASCULAR: S1, S2 normal. ABDOMEN: Soft. NERVOUS SYSTEM: No focal deficits. DISCHARGE ADVICE: 1. Diet is cardiac. 2. Activity limited until followup. 3. Follow up with Dr. Wong in 1-2 days. 4. Follow up with Dr. Rosa in 1-2 weeks. MEDICATION: 1. Ecotrin 325 mg p.o. daily. 2. Brimonidine timolol that is eye drops 1 drop right eye. 3. Calcitriol 0.25 mg p.o. Wednesday. 4. Ceftin 500 mg p.o. b.i.d. for 5 days. 5. Vitamin D3 2000 daily. 6. Cranberry extract 500 p.o. daily. 7. Benadryl 25 mg daily. 8. Lantus 20 units subcu q.h.s. 9. Lantus 10 units subcu q.a.m. 10.Humalog scale as before. 11.Imdur ER 30 mg p.o. daily. 12.Magnesium oxide 500 mg p.o. b.i.d. 13.Multivitamins 1 p.o. daily. 14.Mycophenolate 360 mg p.o. b.i.d. 15.Nitrostat 0.4 mg p.r.n. 16.Zocor 20 mg q.h.s. 17.Prograf p.r.n. 2 mg p.o. b.i.d. Once again, the patient is discharged in a stable condition with guarded prognosis. RACHELLE / JESUSN: [id number] /
--- NOTE | 2017-11-28 17:16 | PN ---
PROGRESS NOTE Patient is seen for followup for acute kidney injury. She was admitted with a urinary tract infection, has received IV fluids and IV antibiotics. Urine culture grew E coli. Her creatinine did decrease from 2.0-1.05 mg/dL. EXAMINATION: Blood pressure is 137/77, heart rate 78 per minute. Patient is afebrile. Examination of the heart: S1, S2. Examination lungs: Bilateral breath sounds are heard. Abdomen is soft, nontender. Examination lower extremity shows no evidence of edema. [employer]ING [employer] exam is grossly intact. Patient moving all 4 extremities. LABS: Reveal sodium of 137, potassium 4.5, chloride 100, BUN 29, serum creatinine 1.05. ASSESSMENT: 1. Acute kidney injury secondary to urinary tract infection and volume depletion, currently improved. 2. Status post living unrelated renal transplant 2008. Maintained on Prograf and Myfortic with baseline creatinine about 1.1-1.2. 3. Urinary tract infection with E coli, status post Rocephin. 4. CD mineral bone disorder maintained on calcitriol. PLAN: The patient is stable for discharge. Continue antibiotics as outpatient. Follow as outpatient for posttransplant care. MMODL / IJN: [id number] /
[2017-11-30] MEDS ORDERED: CALCITRIOL 0.25 MCG CAP PO SCH (12:00)
== END 2017-11-28 15:43 | disposition home health service (06) | DRG 872 ==
LOC: EC 03:52 → 4MS4W 05:46
PROVIDERS: ADMIT Hospitalist; ATTEND Hospitalist
PROC: 3E0234Z Introduction of Serum, Toxoid and Vaccine into Muscle, Percutaneous Approach (ICD-10-PCS; principal; 2017-11-28)
DX: A41.9 Sepsis, unspecified organism (principal); N17.9 Acute kidney failure, unspecified; E11.21 Type 2 diabetes mellitus with diabetic nephropathy; E11.319 Type 2 diabetes mellitus with unspecified diabetic retinopathy without macular edema; Z94.0 Kidney transplant status; N39.0 Urinary tract infection, site not specified; E87.1 Hypo-osmolality and hyponatremia; Z23 Encounter for immunization; E11.22 Type 2 diabetes mellitus with diabetic chronic kidney disease; N18.3 Chronic kidney disease, stage 3 (moderate); B96.20 Unspecified Escherichia coli [E. coli] as the cause of diseases classified elsewhere; E78.5 Hyperlipidemia, unspecified; I12.9 Hypertensive chronic kidney disease with stage 1 through stage 4 chronic kidney disease, or unspecified chronic kidney disease; E86.0 Dehydration; M89.9 Disorder of bone, unspecified; I25.10 Atherosclerotic heart disease of native coronary artery without angina pectoris; H40.9 Unspecified glaucoma; H54.7 Unspecified visual loss; Z79.82 Long term (current) use of aspirin; Z79.4 Long term (current) use of insulin; Z79.899 Other long term (current) drug therapy; Z95.1 Presence of aortocoronary bypass graft; Z90.49 Acquired absence of other specified parts of digestive tract; Z90.710 Acquired absence of both cervix and uterus; Z98.42 Cataract extraction status, left eye; Z87.891 Personal history of nicotine dependence; Z87.442 Personal history of urinary calculi; Z88.8 Allergy status to other drugs, medicaments and biological substances; Z91.018 Allergy to other foods
CPT/HCPCS: 36415; 71046; 80048; 80053; 81001; 83036; 83605; 85025; 85610; 85730; 87040; 87077; 87086; 87186; 87502; 90686; 93005; 96361; 96374; 99291

== ENCOUNTER → 2017-12-01 | Outpatient (CLI) | payer MEDICARE, BC ==
[2017-12-01 10:52] LABS: Basophils # (A) 0.1 k/uL (0-0.2); Basophils % (A) 1 %; Eosinophils # (A) 0.3 k/uL (0-0.7); Eosinophils % (A) 8 %; HGB 12.3 gm/dL (11.4-16.0); Lymphocytes % (A) 25 %; MCH 27.2 pg (25.0-35.0); MCHC 30.8 g/dL (31.0-37.0); MCV 88.3 fL (80.0-100.0); Mean Platelet Volume 7.2; Monocytes # (A) 0.2 k/uL (0-1.0); Monocytes % (A) 6 %; Neutrophils # (A) 2.5 k/uL (1.3-7.7); Neutrophils % (A) 59 %; RBC 4.53 m/uL (3.80-5.40); RDW 12.7 % (11.5-15.5); WBC 4.2 k/uL (3.8-10.6)
[2017-12-01 10:58] LABS: Platelet Count 338 k/uL (150-450)
[2017-12-01 11:43] LABS: Anion Gap 11 mmol/L; Blood Urea Nitrogen 22 mg/dL (7-17); Calcium 9.4 mg/dL (8.4-10.2); Carbon Dioxide 27 mmol/L (22-30); Chloride 103 mmol/L (98-107); Glucose 149 mg/dL (74-99); Potassium 5.5 mmol/L (3.5-5.1); Sodium 141 mmol/L (137-145)
== END | disposition home or self-care (01) ==
LOC: LABWHC1 10:15
PROVIDERS: ATTEND Hospitalist
DX: N39.0 Urinary tract infection, site not specified (principal)
CPT/HCPCS: 36415; 80048; 85025

== ENCOUNTER → 2018-02-01 | Outpatient (CLI) | payer MEDICARE, BC ==
--- NOTE | 2018-02-01 13:37 | XR ---
EXAMINATION TYPE: XR shoulder complete RT DATE OF EXAM: 02/01/2018 COMPARISON: NONE HISTORY: Pain TECHNIQUE: Three views are submitted. FINDINGS: The osseous structures are intact. There is no acute fracture or dislocation. Hypertrophic change an d narrowing of the AC joint. Correlate for subcutaneous emphysema. Could be artifactual correlate cli nically. Arthropathy of the glenohumeral joint noted and there is diffuse osteopenia. IMPRESSION: 1. Severe AC joint arthropathy correlate for impingement and rotator cuff disease. Recommend follow-u p MRI.
== END | disposition home or self-care (01) ==
LOC: RADXRMAIN 13:17
PROVIDERS: ATTEND Family Medicine
DX: M12.811 Other specific arthropathies, not elsewhere classified, right shoulder (principal)

== ENCOUNTER → 2018-02-21 | Outpatient (CLI) | payer MEDICARE, BC ==
[2018-02-21 10:15] LABS: Basophils % (A) 1 %; Eosinophils # (A) 0.4 k/uL (0-0.7); Eosinophils % (A) 9 %; HCT 37.2 % (34.0-46.0); HGB 12.3 gm/dL (11.4-16.0); Lymphocytes # (A) 1.3 k/uL (1.0-4.8); Lymphocytes % (A) 32 %; MCH 28.5 pg (25.0-35.0); MCHC 33.2 g/dL (31.0-37.0); MCV 85.9 fL (80.0-100.0); Mean Platelet Volume 7.8; Monocytes # (A) 0.3 k/uL (0-1.0); Monocytes % (A) 6 %; Neutrophils % (A) 49 %; Platelet Count 193 k/uL (150-450); RBC 4.33 m/uL (3.80-5.40); RDW 13.5 % (11.5-15.5); WBC 4.1 k/uL (3.8-10.6)
[2018-02-21 10:26] LABS: Appearance,Urine Clear (Clear); Bilirubin,Urine Negative (Negative); Blood,Urine Negative (Negative); Color,Urine Yellow; Glucose,Urine (UA) Negative (Negative); Ketones,Urine Negative (Negative); Leukocyte Esterase,Urine Negative (Negative); Nitrite,Urine Negative (Negative); Protein,Urine Negative (Negative); Specific Gravity,Urine 1.011 (1.001-1.035); Urobilinogen,Urine <2.0 mg/dL (<2.0)
[2018-02-21 10:28] LABS: Calcium 9.4 mg/dL (8.4-10.2); Magnesium 1.8 mg/dL (1.6-2.3); Phosphorus 4.1 mg/dL (2.5-4.5); Potassium 5.1 mmol/L (3.5-5.1); Uric Acid 6.1 mg/dL (3.7-7.4)
[2018-02-21 16:15] LABS: Parathyroid Hormone Intact 97.1 pg/mL (14.0-72.0)
[2018-02-21 17:19] LABS: Iron Saturation 39.58 (12.00-45.00)
[2018-02-21 17:27] LABS: Vitamin D 25 Hydroxy 36.3 ng/mL (30.0-100.0)
== END ==
LOC: LABWHC1 09:26
PROVIDERS: ATTEND Internal Medicine Cardiovascular Disease
DX: E78.2 Mixed hyperlipidemia (principal); N39.0 Urinary tract infection, site not specified; M10.9 Gout, unspecified; N25.81 Secondary hyperparathyroidism of renal origin; E55.9 Vitamin D deficiency, unspecified; D50.9 Iron deficiency anemia, unspecified; Z94.0 Kidney transplant status
CPT/HCPCS: 36415; 80048; 80061; 80197; 81003; 82306; 82728; 83540; 83550; 83735; 83970; 84100; 84450; 84460; 84550; 85025

== ENCOUNTER → 2018-02-24 | Outpatient (CLI) | payer MEDICARE, BC | END | disposition home or self-care (01) | LOC: LABWHC1 09:28 | PROVIDERS: ATTEND Internal Medicine Nephrology | DX: Z94.0 Kidney transplant status (principal) | CPT/HCPCS: 36415; 80197 ==

== ENCOUNTER → 2018-02-25 | Outpatient (CLI) | payer MEDICARE, BC ==
--- NOTE | 2018-02-25 21:57 | MR ---
EXAMINATION TYPE: MR shoulder RT wo con DATE OF EXAM: 02/25/2018 COMPARISON: Radiographs 02/01/2018 HISTORY: 67-year-old female pain in right shoulder TECHNIQUE: Multiplanar, multisequence imaging of the right shoulder is performed without contrast. FINDINGS: Intracapsular portion of the long head biceps tendon is not well seen; it could be severely tendinoti c or partially torn. The majority of the subscapularis tendon appears torn and there is moderate to severe atrophy of this muscle belly. There is a full-thickness tear of the entire supraspinatus tendon with tear extension into the infras pinous tendon. Some of the far posterior infraspinatus tendon fibers remain intact. The tear measures 3.5 cm AP and stump is retracted to the level of the superior glenoid by 3.7 cm. There is mild fatty infiltration of the supraspinatus and infraspinatus muscle bellies. Incidentally, there is advanced fatty atrophy of the teres minor muscle. No mass lesion within the qu adrilateral space. There is joint fluid within the intervening gap communicating with the subacromial/subdeltoid bursa. Degenerative spurring of the glenohumeral joint with diffuse cartilage thinning along the humeral hea d articular surface more extensive superiorly and inferiorly. The superior glenoid labrum is irregular and degenerative. Mild to moderate joint effusion. A 6 to 7 mm loose body is noted on the superior glenohumeral joint. Moderate to severe degenerative change at the acromioclavicular joint with capsular hypertrophy and p rominent marginal spurring. And inferior coracoacromial spur is noted, refer to coronal PD image 11. No Hill-Sachs deformity or os acromiale. Patchy red marrow hyperplasia can be seen in the setting of anemia, obesity, smoking, and chronic disease. IMPRESSION: 1. Near massive rotator cuff tear. Tear involves the entire supraspinatus tendon and extends posterio rly to involve most of the infraspinatus tendon. Some of the far posterior infraspinatus tendon fiber s remain intact. The stump is retracted back to the level of the glenoid. Mild fatty streaks within b oth the supraspinatus and infraspinatus muscle bellies. 2. The majority of the subscapularis tendon is torn and there is moderate to severe atrophy of its mu scle belly. 3. Incidental advanced atrophy of the teres minor muscle can be seen in the setting of quadrilateral space syndrome. 4. Mild to moderate rotator cuff arthropathy. 5. Advanced AC joint OA with prominent marginal spurring. A large inferior acromial spur is also pres ent encroaching onto the subacromial space. 6. Intracapsular portion of the long head biceps tendon is not well seen and could be severely tendin otic or partially torn.
== END | disposition home or self-care (01) ==
LOC: RADMRIMAIN 10:18
PROVIDERS: ATTEND Family Medicine
DX: M75.101 Unspecified rotator cuff tear or rupture of right shoulder, not specified as traumatic (principal); M12.811 Other specific arthropathies, not elsewhere classified, right shoulder

== ENCOUNTER 2018-04-06 10:38 | Emergency (ER) | payer MEDICARE, BC ==
[2018-04-06] MEDS ORDERED: SODIUM CHLORIDE 0.9% 500 ML IV STA (11:03)
[2018-04-06 11:54] LABS: Basophils % (A) 1 %; Eosinophils # (A) 0.2 k/uL (0-0.7); Eosinophils % (A) 4 %; HCT 39.4 % (34.0-46.0); HGB 13.1 gm/dL (11.4-16.0); Lymphocytes # (A) 0.7 k/uL (1.0-4.8); Lymphocytes % (A) 11 %; MCH 28.7 pg (25.0-35.0); MCHC 33.3 g/dL (31.0-37.0); MCV 86.1 fL (80.0-100.0); Mean Platelet Volume 7.6; Monocytes # (A) 0.2 k/uL (0-1.0); Monocytes % (A) 4 %; Neutrophils # (A) 4.6 k/uL (1.3-7.7); Neutrophils % (A) 79 %; Platelet Count 201 k/uL (150-450); RBC 4.57 m/uL (3.80-5.40); RDW 13.3 % (11.5-15.5); WBC 5.9 k/uL (3.8-10.6)
--- NOTE | 2018-04-06 11:54 | ED ---
General Adult HPI - General Source: patient, RN notes reviewed Mode of arrival: wheelchair Limitations: no limitations <Eliot Mitchell - Last Filed: 04/06/18 14:01> <Brenton Mishra - Last Filed: 04/06/18 14:30> - General Chief complaint: Urogenital Stated complaint: Poss UTI Time Seen by Provider: 04/06/18 10:50 - History of Present Illness Initial comments: This a 67-year-old female presented emergency Department chief complaint of low back pain. Patient states this is her normal symptoms when she has urinary tract infection. Patient states she did not know she had a low-grade temp prior to come emergency department. She denies any nausea vomiting diarrhea constipation this time. Patient states that she is concerned that she has a urinary tract infection. Patient is a renal transplant patient states that this was a proximally 9 years ago in [place]. Patient denies any dysuria or urinary frequency. Denies any chest pain or shortness breath. (Eliot Mitchell ) - Related Data Home Medications Medication Instructions Recorded Confirmed Cholecalciferol [Vitamin D3] 2,000 unit PO DAILY 03/14/14 04/06/18 Magnesium Oxide [Mag-Ox] 500 mg PO BID 03/14/14 04/06/[address] [Myfortic] 360 mg PO BID 03/14/14 04/06/18 Simvastatin [Zocor] 20 mg PO HS 03/14/14 04/06/18 Aspirin 325 mg PO DAILY 05/06/15 04/06/18 INSULIN LISPRO (HumaLOG) [humaLOG] See Protocol SQ ACHS 03/21/16 04/06/18 Cranberry Fruit Extract [Cranberry] 500 mg PO DAILY 07/28/16 04/06/18 diphenhydrAMINE [Benadryl] 25 mg PO DAILY PRN 07/28/16 04/06/18 Tacrolimus [Prograf] 2 mg PO BID 09/13/17 04/06/18 Insulin Glargine,Hum.rec.anlog 30 unit SQ HS 11/26/17 04/06/18 [Lantus Solostar] Isosorbide Mononitrate ER [Imdur] 30 mg PO DAILY 11/26/17 04/06/18 Latanoprost Ophth [Xalatan 0.005%] 1 drops BOTH EYES HS 04/06/18 04/06/18 Previous Rx's Medication Instructions Recorded Nitroglycerin Sl Tabs [Nitrostat] 0.4 mg SUBLINGUAL Q5M PRN #20 tab 12/24/15 Allergies Allergy/AdvReac Type Severity Reaction Status Date / Time metoclopramide HCl Allergy Unknown Verified 04/06/18 11:00 [From Reglan] grapefruit [Grapefruit] AdvReac reaction Verified 04/06/18 11:00 with simvastatin ibuprofen AdvReac kidney Verified 04/06/18 11:00 failure/transplant Review of Systems ROS Other: All systems not noted in ROS Statement are negative. <Eliot Mitchell - Last Filed: 04/06/18 14:01> ROS Other: All systems not noted in ROS Statement are negative. <Brenton Mishra - Last Filed: 04/06/18 14:30> ROS Statement: Those systems with pertinent positive or pertinent negative responses have been documented in the HPI. Past Medical History Past Medical History: Coronary Artery Disease (CAD), Diabetes Mellitus, Eye Disorder, Hyperlipidemia, Hypertension, Myocardial Infarction ([place]), Renal Disease, Skin Disorder Additional Past Medical History / Comment(s): Current pink skin abdominal folds , R eye glaucoma, retinal bleed and little vision, renal failure resolved after R renal transplant in 2008, UTIs, UTIs with sepsis, nephrolithiasis, IDDM type II, Last Myocardial Infarction Date:: 2009 History of Any Multi-Drug Resistant Organisms: None Reported Past Surgical History: Appendectomy, Cholecystectomy, Coronary Bypass/CABG, Heart Catheterization, Hernia Repair, Hysterectomy Additional Past Surgical History / Comment(s): 2009 right kidney transplant, 4 vessel CABG in 2009, umbilical hernia repair, colonoscopies, L cataract removed , R eye laser surgeries. Past Anesthesia/Blood Transfusion Reactions: No Reported Reaction Additional Past Anesthesia/Blood Transfusion Reaction / Comment(s): unknown Past Psychological History: No Psychological Hx Reported Smoking Status: Former smoker Past Alcohol Use History: None Reported Past Drug Use History: None Reported - Past Family History Mother Family Medical History: Coronary Artery Disease (CAD) Additional Family Medical History / Comment(s): mom had heart disease Father Family Medical History: Cancer Additional Family Medical History / Comment(s): lung and pancreatic cancer <Eliot Mitchell - Last Filed: 04/06/18 14:01> General Exam Limitations: no limitations General appearance: alert, in no apparent distress Head exam: Present: atraumatic, normocephalic, normal inspection Neck exam: Present: normal inspection. Absent: tenderness, meningismus, lymphadenopathy Respiratory exam: Present: normal lung sounds bilaterally. Absent: respiratory distress, wheezes, rales, rhonchi, stridor Cardiovascular Exam: Present: regular rate, normal rhythm, normal heart sounds. Absent: systolic murmur, diastolic murmur, rubs, gallop, clicks GI/Abdominal exam: Present: soft, normal bowel sounds. Absent: distended, tenderness, guarding, rebound, rigid Back exam: Absent: CVA tenderness (R), CVA tenderness (L) Skin exam: Present: warm, dry, intact, normal color. Absent: rash <Eliot Mitchell - Last Filed: 04/06/18 14:01> Course <Eliot Mitchell - Last Filed: 04/06/18 14:01> <Brenton Mishra - Last Filed: 04/06/18 14:30> Vital Signs 04/06/18 10:39 Temperature 99.8 F H Pulse Rate 88 Respiratory 20 Rate Blood Pressure 105/71 O2 Sat by Pulse 96 Oximetry - Reevaluation(s) Reevaluation #1: 04/06/18 14:29 PA supervision: I did personally do a [id number] evaluation the patient and did discuss findings with her. Patient does not recall being ill recently though she did admit to some sinus congestion. No prior history of elevated liver enzymes that she is aware of. She is status post cholecystectomy. She does have some mild times palpation of the right upper quadrant and epigastrium no guarding rebound masses or bruits. No back pain on palpation. I did review the imaging and reports. I did discuss the findings with her. I do agree with the assessment and plan. She'll be discharged to follow-up with her doctor. ( Brenton Mishra) Medical Decision Making - Lab Data Result diagrams: 04/06/18 11:30 04/06/18 11:30 <Eliot Mitchell - Last Filed: 04/06/18 14:01> - Lab Data Result diagrams: 04/06/18 11:30 04/06/18 11:30 <Brenton Mishra - Last Filed: 04/06/18 14:30> - Medical Decision Making 67-year-old female presented for low back pain concerns for possible urinary tract infection. Patient does not have urinary tract infection her lab work does reveal elevation of liver function tests noted. Patient has no history of this and she is postcholecystectomy. Patient has no lower quadrant tenderness. May be related to a viral illness by hepatitis. Hepatitis panel was added, acetaminophen level was addressed. Patient will be discharged advised to have a recheck in 24 hours and return for any worsening symptoms. Case discussed with Dr. Mishra. (Eliot Mitchell) - Lab Data Lab Results 04/06/18 04/06/18 04/06/18 Range/Units 11:30 11:30 11:30 WBC 5.9 (3.8-10.6) k/uL RBC 4.57 (3.80-5.40) m/uL Hgb 13.1 (11.4-16.0) gm/dL Hct 39.4 (34.0-46.0) % MCV 86.1 (80.0-100.0) fL MCH 28.7 (25.0-35.0) pg MCHC 33.3 (31.0-37.0) g/dL RDW 13.3 (11.5-15.5) % Plt Count 201 (150-450) k/uL Neutrophils % 79 % Lymphocytes % 11 % Monocytes % 4 % Eosinophils % 4 % Basophils % 1 % Neutrophils # 4.6 (1.3-7.7) k/uL Lymphocytes # 0.7 L (1.0-4.8) k/uL Monocytes # 0.2 (0-1.0) k/uL Eosinophils # 0.2 (0-0.7) k/uL Basophils # 0.0 (0-0.2) k/uL Sodium 138 (137-145) mmol/L Potassium 5.0 (3.5-5.1) mmol/L Chloride 103 (98-107) mmol/L Carbon Dioxide 26 (22-30) mmol/L Anion Gap 9 mmol/L BUN 23 H (7-17) mg/dL Creatinine 1.20 H (0.52-1.04) mg/dL Est GFR (CKD-EPI)AfAm 53 (>60 ml/min/1.73 sqM) Est GFR (CKD-EPI)NonAf 46 (>60 ml/min/1.73 sqM) Glucose 154 H (74-99) mg/dL Plasma Lactic Acid Silvino 0.7 (0.7-2.0) mmol/L Calcium 9.0 (8.4-10.2) mg/dL Total Bilirubin 1.4 H (0.2-1.3) mg/dL AST 464 H (14-36) U/L ALT 355 H (9-52) U/L Alkaline Phosphatase 281 H (38-126) U/L Total Protein 6.7 (6.3-8.2) g/dL Albumin 3.6 (3.5-5.0) g/dL Amylase <30 L (30-110) U/L Lipase 137 (23-300) U/L Urine Color Urine Appearance (Clear) Urine pH (5.0-8.0) Ur Specific [place] (1.001-1.035) Urine Protein (Negative) Urine Glucose (UA) (Negative) Urine Ketones (Negative) Urine Blood (Negative) Urine Nitrite (Negative) Urine Bilirubin (Negative) Urine Urobilinogen (<2.0) mg/dL Ur Leukocyte Esterase (Negative) Acetaminophen ug/mL 04/06/18 04/06/18 Range/Units 11:30 12:05 WBC (3.8-10.6) k/uL RBC (3.80-5.40) m/uL Hgb (11.4-16.0) gm/dL Hct (34.0-46.0) % MCV (80.0-100.0) fL MCH (25.0-35.0) pg MCHC (31.0-37.0) g/dL RDW (11.5-15.5) % Plt Count (150-450) k/uL Neutrophils % % Lymphocytes % % Monocytes % % Eosinophils % % Basophils % % Neutrophils # (1.3-7.7) k/uL Lymphocytes # (1.0-4.8) k/uL Monocytes # (0-1.0) k/uL Eosinophils # (0-0.7) k/uL Basophils # (0-0.2) k/uL Sodium (137-145) mmol/L Potassium (3.5-5.1) mmol/L Chloride (98-107) mmol/L Carbon Dioxide (22-30) mmol/L Anion Gap mmol/L BUN (7-17) mg/dL Creatinine (0.52-1.04) mg/dL Est GFR (CKD-EPI)AfAm (>60 ml/min/1.73 sqM) Est GFR (CKD-EPI)NonAf (>60 ml/min/1.73 sqM) Glucose (74-99) mg/dL Plasma Lactic Acid Silvino (0.7-2.0) mmol/L Calcium (8.4-10.2) mg/dL Total Bilirubin (0.2-1.3) mg/dL AST (14-36) U/L ALT (9-52) U/L Alkaline Phosphatase (38-126) U/L Total Protein (6.3-8.2) g/dL Albumin (3.5-5.0) g/dL Amylase (30-110) U/L Lipase (23-300) U/L Urine Color Yellow Urine Appearance Clear (Clear) Urine pH 8.0 (5.0-8.0) Ur Specific [place] 1.012 (1.001-1.035) Urine Protein Negative (Negative) Urine Glucose (UA) Negative (Negative) Urine Ketones Negative (Negative) Urine Blood Negative (Negative) Urine Nitrite Negative (Negative) Urine Bilirubin Negative (Negative) Urine Urobilinogen <2.0 (<2.0) mg/dL Ur Leukocyte Esterase Negative (Negative) Acetaminophen <10.0 ug/mL Disposition Is patient prescribed a controlled substance at d/c from ED?: No <Eliot Mitchell - Last Filed: 04/06/18 14:01> <Brenton Mishra - Last Filed: 04/06/18 14:30> Clinical Impression: Elevated liver function tests, Back pain Disposition: HOME SELF-CARE Condition: Stable Instructions: Jaundice (ED) Additional Instructions: have your liver function tests repeated with your primary care physician in one to 2 days. Please return to the Emergency Department if symptoms worsen or any other concerns. Referrals: Joel Wong DO [Primary Care Provider] - 1-2 days
[2018-04-06 12:06] LABS: ALT 355 U/L (9-52); AST 464 U/L (14-36); Albumin 3.6 g/dL (3.5-5.0); Alkaline Phosphatase 281 U/L (38-126); Amylase <30 U/L (30-110); Anion Gap 9 mmol/L; Blood Urea Nitrogen 23 mg/dL (7-17); Carbon Dioxide 26 mmol/L (22-30); Chloride 103 mmol/L (98-107); Glucose 154 mg/dL (74-99); Lipase 137 U/L (23-300); Sodium 138 mmol/L (137-145); Total Bilirubin 1.4 mg/dL (0.2-1.3); Total Protein 6.7 g/dL (6.3-8.2)
[2018-04-06 12:53] LABS: Appearance,Urine Clear (Clear); Bilirubin,Urine Negative (Negative); Blood,Urine Negative (Negative); Color,Urine Yellow; Glucose,Urine (UA) Negative (Negative); Ketones,Urine Negative (Negative); Leukocyte Esterase,Urine Negative (Negative); Nitrite,Urine Negative (Negative); Protein,Urine Negative (Negative); Specific Gravity,Urine 1.012 (1.001-1.035); Urobilinogen,Urine <2.0 mg/dL (<2.0)
[2018-04-06 14:42] VITALS: BP 117/61; PULSE 77; RESP 18; TEMP 98.2
[2018-04-06 15:33] LABS: Hepatitis A AB IgM Index 0.02; Hepatitis A Antibody IgM NEGATIVE
[2018-04-07 01:08] LABS: Hepatitis B Core IgM Non-Reactive (Non-Reactive)
== END 2018-04-06 14:45 | disposition home or self-care (01) ==
LOC: EC 10:38
DX: M54.5 Low back pain (principal); R79.89 Other specified abnormal findings of blood chemistry; I25.10 Atherosclerotic heart disease of native coronary artery without angina pectoris; E11.9 Type 2 diabetes mellitus without complications; E78.5 Hyperlipidemia, unspecified; I25.2 Old myocardial infarction; I10 Essential (primary) hypertension; Z87.891 Personal history of nicotine dependence; Z79.4 Long term (current) use of insulin; Z79.82 Long term (current) use of aspirin; Z79.899 Other long term (current) drug therapy; Z88.6 Allergy status to analgesic agent; Z88.8 Allergy status to other drugs, medicaments and biological substances; Z90.49 Acquired absence of other specified parts of digestive tract; Z95.1 Presence of aortocoronary bypass graft; Z95.818 Presence of other cardiac implants and grafts; Z94.0 Kidney transplant status
CPT/HCPCS: 36415; 80053; 80074; 81003; 82150; 83520; 83605; 83690; 85025; 87040; 87086; 96360; 96361; 99283

== ENCOUNTER → 2018-04-21 | Outpatient (CLI) | payer MEDICARE, BC ==
--- NOTE | 2018-04-21 09:41 | CT ---
EXAMINATION TYPE: CT abdomen w con DATE OF EXAM: 04/21/2018 HISTORY: Elevated liver enzymes CT DLP: 1811.1mGycm Automated Exposure Control for Dose Reduction was Utilized. CONTRAST: CT scan of the abdomen and pelvis is performed with IV Contrast, patient injected with 100 mL of Isov ue 300. COMPARISON: None. FINDINGS: LUNG BASES: Lingular pleural parenchymal scarring is appreciated as well as minimal bibasilar subsegm ental dependent atelectasis.. LIVER/GB: There is a subtle nodular hepatic contour with elongation of the right hepatic lobe extendi ng towards the iliac crest. No focal hepatic lesion is seen. Very minimal intrahepatic biliary ductal prominence is noted without yasmin dilatation. Cholecystectomy is present. There is prominence of the ampulla of Vater without proximal dilatation of the common bile duct. Common bile duct measures 5 mm on series 9 image 43. Common hepatic duct is more prominent measuring up to 9 mm. This remains withi n normal limits for a postcholecystectomy patient. PANCREAS: No significant abnormality is seen. No pancreatic ductal dilatation. SPLEEN: The spleen is elongated and longitudinal dimension measuring 12.8 cm, however not enlarged in craniocaudal dimension.. ADRENALS: No significant abnormality is seen. KIDNEYS: There is atrophy of the [place] kidneys. Right renal transplant is partially visualized and u nremarkable. No surrounding fluid collection. BOWEL: No bowel dilatation. UTERUS/[place]: No gross abnormality seen. LYMPH NODES: No greater than 1cm abdominal or pelvic lymph nodes are appreciated. OSSEOUS STRUCTURES: Multiple moderate degenerative changes of the visualized lumbosacral spine are pr esent. OTHER: Calcified omental infarct or node is partially visualized on series 4 image 50, similar to the prior. Extensive calcific atheromatous changes are seen in the abdominal aorta and its branches. Silvino tral abdominal wall hernia has been repaired with elongated probable seroma. IMPRESSION: 1. Subtle nodular hepatic contour suggestive of early hepatocellular disease. No focal hepatic mass. No sequela portal venous hypertension. 2. Soft tissue prominence near the ampulla of Vater on series 4 image 41 and 42 could represent a sma ll periampullary mass and could be further evaluated with direct visualization/endoscopy.
== END | disposition home or self-care (01) ==
LOC: RADCTMAIN 07:08
PROVIDERS: ATTEND Family Medicine
DX: R93.2 Abnormal findings on diagnostic imaging of liver and biliary tract (principal); R74.8 Abnormal levels of other serum enzymes; Z13.9 Encounter for screening, unspecified
CPT/HCPCS: 82565; 84520; 74160; 36415; Q9967

== ENCOUNTER 2018-04-27 22:32 | Emergency (ER) | payer MEDICARE, BC ==
[2018-04-27 22:43] VITALS: RESP 18
[2018-04-28 00:28] LABS: Albumin 3.4 g/dL (3.5-5.0); Calcium 8.8 mg/dL (8.4-10.2); Potassium 4.8 mmol/L (3.5-5.1); Total Bilirubin 0.2 mg/dL (0.2-1.3); Total Protein 6.4 g/dL (6.3-8.2)
[2018-04-28 01:09] LABS: Basophils % (A) 1 %; Eosinophils # (A) 0.3 k/uL (0-0.7); Eosinophils % (A) 5 %; HCT 36.2 % (34.0-46.0); HGB 12.1 gm/dL (11.4-16.0); Lymphocytes # (A) 0.9 k/uL (1.0-4.8); Lymphocytes % (A) 14 %; MCH 28.2 pg (25.0-35.0); MCHC 33.4 g/dL (31.0-37.0); MCV 84.6 fL (80.0-100.0); Mean Platelet Volume 7.7; Monocytes # (A) 0.3 k/uL (0-1.0); Monocytes % (A) 4 %; Neutrophils # (A) 4.6 k/uL (1.3-7.7); Neutrophils % (A) 74 %; Platelet Count 219 k/uL (150-450); RBC 4.28 m/uL (3.80-5.40); WBC 6.2 k/uL (3.8-10.6)
--- NOTE | 2018-04-28 02:21 | ED ---
General Adult HPI - General Chief complaint: Recheck/Abnormal Lab/Rx Stated complaint: muscle spasm Time Seen by Provider: 04/27/18 23:06 Source: patient Mode of arrival: EMS Limitations: no limitations - History of Present Illness Initial comments: This patient is 67-year-old woman who presents to be evaluated for which she is going chart courses and both of her legs. She states this started approximately 1/2-1 hour before she came here. Patient states she was unable to that the cramping to stop at home. She is concerned that she may have electrolyte abnormality. She denies any swelling. She denies any chest symptoms Onset/Timin -: hour(s) Location: left, right, lower extremity Quality: other (Cramping) Consistency: constant Improves with: none Worsens with: none Associated Symptoms: denies other symptoms Treatments Prior to Arrival: none - Related Data Home Medications Medication Instructions Recorded Confirmed Cholecalciferol [Vitamin D3] 2,000 unit PO DAILY 03/14/14 04/27/18 Magnesium Oxide [Mag-Ox] 500 mg PO BID 03/14/14 04/27/[address] [Myfortic] 360 mg PO BID 03/14/14 04/27/18 Aspirin 325 mg PO DAILY 05/06/15 04/27/18 INSULIN LISPRO (HumaLOG) [humaLOG] See Protocol SQ ACHS 03/21/16 04/27/18 Cranberry Fruit Extract [Cranberry] 500 mg PO DAILY 07/28/16 04/27/18 diphenhydrAMINE [Benadryl] 25 mg PO DAILY PRN 07/28/16 04/27/18 Tacrolimus [Prograf] 2 mg PO BID 09/13/17 04/27/18 Insulin Glargine,Hum.rec.anlog 30 unit SQ HS 11/26/17 04/27/18 [Lantus Solostar] Isosorbide Mononitrate ER [Imdur] 30 mg PO DAILY 11/26/17 04/27/18 Latanoprost Ophth [Xalatan 0.005%] 1 drops BOTH EYES HS 04/06/18 04/27/18 rOPINIRole HCL [Requip] 1 mg PO HS 04/27/18 04/27/18 Previous Rx's Medication Instructions Recorded Nitroglycerin Sl Tabs [Nitrostat] 0.4 mg SUBLINGUAL Q5M PRN #20 tab 12/24/15 Cyclobenzaprine [Flexeril] 10 mg PO TID PRN #10 tab 04/28/18 Allergies Allergy/AdvReac Type Severity Reaction Status Date / Time metoclopramide HCl Allergy Unknown Verified 04/27/18 22:52 [From Reglan] grapefruit [Grapefruit] AdvReac reaction Verified 04/27/18 22:52 with simvastatin ibuprofen AdvReac kidney Verified 04/27/18 22:52 failure/transplant Review of Systems ROS Statement: Those systems with pertinent positive or pertinent negative responses have been documented in the HPI. ROS Other: All systems not noted in ROS Statement are negative. Constitutional: Denies: fever, chills, weakness Respiratory: Denies: cough, dyspnea Cardiovascular: Denies: chest pain, palpitations, edema, syncope Gastrointestinal: Denies: abdominal pain, vomiting Musculoskeletal: Reports: as per HPI, myalgia Skin: Denies: rash Neurological: Denies: headache, weakness, numbness, paresthesias Past Medical History Past Medical History: Coronary Artery Disease (CAD), Diabetes Mellitus, Eye Disorder, Hyperlipidemia, Hypertension, Myocardial Infarction ([place]), Renal Disease, Skin Disorder Additional Past Medical History / Comment(s): Current pink skin abdominal folds , R eye glaucoma, retinal bleed and little vision, renal failure resolved after R renal transplant in 2008, UTIs, UTIs with sepsis, nephrolithiasis, IDDM type II, Last Myocardial Infarction Date:: 2009 History of Any Multi-Drug Resistant Organisms: None Reported Past Surgical History: Appendectomy, Cholecystectomy, Coronary Bypass/CABG, Heart Catheterization, Hernia Repair, Hysterectomy Additional Past Surgical History / Comment(s): 2009 right kidney transplant, 4 vessel CABG in 2009, umbilical hernia repair, colonoscopies, L cataract removed , R eye laser surgeries. Past Anesthesia/Blood Transfusion Reactions: No Reported Reaction Additional Past Anesthesia/Blood Transfusion Reaction / Comment(s): unknown Past Psychological History: No Psychological Hx Reported Smoking Status: Former smoker Past Alcohol Use History: None Reported Past Drug Use History: None Reported - Past Family History Mother Family Medical History: Coronary Artery Disease (CAD) Additional Family Medical History / Comment(s): mom had heart disease Father Family Medical History: Cancer Additional Family Medical History / Comment(s): lung and pancreatic cancer General Exam Limitations: no limitations General appearance: alert, in no apparent distress, obese Head exam: Present: atraumatic, normocephalic Respiratory exam: Present: normal lung sounds bilaterally. Absent: respiratory distress, wheezes, rales, rhonchi, stridor Cardiovascular Exam: Present: regular rate, normal rhythm, normal heart sounds. Absent: systolic murmur, diastolic murmur, rubs, gallop GI/Abdominal exam: Present: soft. Absent: tenderness, guarding, rebound Extremities exam: Present: normal inspection, full ROM, normal capillary refill. Absent: tenderness, pedal edema, calf tenderness Back exam: Absent: CVA tenderness (R), CVA tenderness (L) Neurological exam: Present: alert. Absent: motor sensory deficit Skin exam: Present: warm, dry, intact, normal color. Absent: rash Course Vital Signs 04/27/18 04/28/18 04/28/18 22:37 00:56 02:27 Temperature 98.5 F 97.8 F Pulse Rate 83 81 83 Respiratory 18 18 18 Rate Blood Pressure 131/64 149/69 159/70 O2 Sat by Pulse 97 97 95 Oximetry Medical Decision Making - Lab Data Result diagrams: 04/28/18 00:40 04/28/18 00:08 Lab Results 04/28/18 04/28/18 Range/Units 00:08 00:40 WBC 6.2 (3.8-10.6) k/uL RBC 4.28 (3.80-5.40) m/uL Hgb 12.1 (11.4-16.0) gm/dL Hct 36.2 (34.0-46.0) % MCV 84.6 (80.0-100.0) fL MCH 28.2 (25.0-35.0) pg MCHC 33.4 (31.0-37.0) g/dL RDW 13.0 (11.5-15.5) % Plt Count 219 (150-450) k/uL Neutrophils % 74 % Lymphocytes % 14 % Monocytes % 4 % Eosinophils % 5 % Basophils % 1 % Neutrophils # 4.6 (1.3-7.7) k/uL Lymphocytes # 0.9 L (1.0-4.8) k/uL Monocytes # 0.3 (0-1.0) k/uL Eosinophils # 0.3 (0-0.7) k/uL Basophils # 0.0 (0-0.2) k/uL Sodium 137 (137-145) mmol/L Potassium 4.8 (3.5-5.1) mmol/L Chloride 106 (98-107) mmol/L Carbon Dioxide 25 (22-30) mmol/L Anion Gap 6 mmol/L BUN 41 H (7-17) mg/dL Creatinine 1.20 H (0.52-1.04) mg/dL Est GFR (CKD-EPI)AfAm 53 (>60 ml/min/1.73 sqM) Est GFR (CKD-EPI)NonAf 46 (>60 ml/min/1.73 sqM) Glucose 129 H (74-99) mg/dL Calcium 8.8 (8.4-10.2) mg/dL Magnesium 2.0 (1.6-2.3) mg/dL Total Bilirubin 0.2 (0.2-1.3) mg/dL AST 22 (14-36) U/L ALT 33 (9-52) U/L Alkaline Phosphatase 132 H (38-126) U/L Total Protein 6.4 (6.3-8.2) g/dL Albumin 3.4 L (3.5-5.0) g/dL Disposition Clinical Impression: Dehydration, Muscle spasm Disposition: HOME SELF-CARE Condition: Good Instructions: Muscle Spasm (ED) Prescriptions: Cyclobenzaprine [Flexeril] 10 mg PO TID PRN #10 tab PRN Reason: Spasms Is patient prescribed a controlled substance at d/c from ED?: No Referrals: Joel Wong DO [Primary Care Provider] - 1-2 days
[2018-04-28 02:28] VITALS: BP 159/70; PULSE 83; TEMP 97.8
[2018-04-28] MEDS ORDERED: DIAZEPAM 5 MG TAB PO STA (02:30)
== END 2018-04-28 02:38 | disposition home or self-care (01) ==
LOC: EC 22:32
DX: E86.0 Dehydration (principal); M62.838 Other muscle spasm; I25.10 Atherosclerotic heart disease of native coronary artery without angina pectoris; E11.9 Type 2 diabetes mellitus without complications; I25.2 Old myocardial infarction; Z87.891 Personal history of nicotine dependence; Z87.19 Personal history of other diseases of the digestive system; Z90.49 Acquired absence of other specified parts of digestive tract; Z95.1 Presence of aortocoronary bypass graft; Z90.710 Acquired absence of both cervix and uterus; Z94.0 Kidney transplant status; Z98.890 Other specified postprocedural states; Z79.82 Long term (current) use of aspirin; Z79.4 Long term (current) use of insulin; Z79.899 Other long term (current) drug therapy
CPT/HCPCS: 36415; 80053; 83735; 85025; 99283

== ENCOUNTER → 2018-05-27 | Outpatient (CLI) | payer MEDICARE, BC ==
--- NOTE | 2018-05-31 10:47 | MM ---
Reason for exam: screening (asymptomatic). Last mammogram was performed 1 year ago. History: Patient is postmenopausal and has history of other cancer at age 53. Family history of breast cancer in paternal aunt. Physical Findings: A clinical breast exam by your physician is recommended on an annual basis and results should be correlated with mammographic findings. MG 3D Screening Mammo W/Cad Bilateral CC and MLO view(s) were taken. Prior study comparison: May 21, 2017, bilateral MG 3d screening mammo w/cad. June 06, 2015, bilateral MG screening mammo w CAD. There are scattered fibroglandular densities. There is benign appearing round, linear, vascular calcifications bilaterally. There is no discrete abnormality. ASSESSMENT: Benign, BI-RAD 2 RECOMMENDATION: Routine screening mammogram of both breasts in 1 year.
== END | disposition home or self-care (01) ==
LOC: RADMAMWWP 13:11
PROVIDERS: ATTEND Family Medicine
DX: Z12.31 Encounter for screening mammogram for malignant neoplasm of breast (principal)
CPT/HCPCS: 77063; 77067

== ENCOUNTER 2018-05-30 07:43 | Day surgery (SDC) | payer MEDICARE, BC ==
[2018-05-26 09:53] VITALS: BMI 36.6
[~2018-05-30 07:43] MED LIST: LACTATED RINGERS 1,000 ML IV SCH
[2018-05-30 08:21] VITALS: TEMP 97.9
[2018-05-30] MEDS ORDERED: LIDOCAINE 1% 20 ML VIAL (10MG/ML) FOR IV START INTRADERMA ONE (08:39)
[2018-05-30] MEDS ORDERED: PROPOFOL 10 MG/ML 20 ML VIAL IV ONE (08:40)
[2018-05-30] MEDS ORDERED: LIDOCAINE 1% INJ 10MG/ML (20 ML MDV) ONE (08:40)
[2018-05-30 08:43] LABS: Glucose,Whole Blood 92 mg/dL (75-99)
[2018-05-30 09:21] VITALS: RESP 16
--- NOTE | 2018-05-30 09:28 | P.PCN ---
Date of Procedure: 05/30/18 Procedure(s) Performed: Procedures: 1. Esophagogastroduodenoscopy and biopsy. 2. Total colonoscopy. Preoperative diagnosis: Abnormal CT of the abdomen with prominence of the ampulla of Vater. Screening colonoscopy for history of colon polyps. Postoperative diagnosis: 1. Mild gastritis but normal papilla without any obvious abnormalities in the duodenum. 2. Colon exam within normal limits. Preparation: HalfLytely prep. Sedation: Was provided by anesthesia. Brief clinical history: The patient is a 67-year-old female who is referred for this evaluation because of abnormal ampulla of Vater noted on CT in April. The patient was having investigation for nonspecific abdominal symptoms and abnormal liver enzymes. There was no dilation of the biliary tree or pancreatic masses. The patient also has history of polyps. Her last colonoscopy was in 2012. Procedure: With the patient on her left lateral decubitus position and after informed consent and adequate sedation, I passed the Olympus-GIF 160 video upper endoscope through the cricopharyngeus down the esophagus. The esophagus appeared healthy with no obvious abnormalities or any obvious hiatal hernia. The endoscope was then passed into the stomach which was insufflated with air and inspected in detail including the retroflex view in the cardia. There was minimal mottling and erythema in the antrum but no ulcers or erosions. Pyloric channel, duodenal bulb, post bulbar area and descending duodenum appeared within normal limits. Particular attention was made to the area of the papilla and that appeared normal. I obtained a picture of the papilla and a picture of the antrum and I obtained biopsies from the antrum before the endoscope was withdrawn then I proceeded with the colonoscopy. Perianal area did not show any fissures or fistulas. There were no masses felt on digital rectal examination. The Olympus CFQ 160L video colonoscope was then inserted in the rectum in the usual fashion and advanced to the cecum. The mucosa appeared healthy. No obvious polyps or tumors were seen or any obvious diverticular disease or other pathology. I retroflexed the endoscope in the rectum before the endoscope was withdrawn. The patient tolerated the procedure well. Plan: The patient was reassured. Will await biopsy results. She will follow- up with you as planned and I recommended repeat colonoscopy in 5 years.
[2018-05-30 09:50] VITALS: BP 160/87; PULSE 88
== END 2018-05-30 09:50 | disposition home or self-care (01) ==
LOC: ORWHC2ENDO 07:43
DX: Z12.11 Encounter for screening for malignant neoplasm of colon (principal); K29.50 Unspecified chronic gastritis without bleeding; Z86.010 Personal history of colon polyps; I25.10 Atherosclerotic heart disease of native coronary artery without angina pectoris; E78.5 Hyperlipidemia, unspecified; E13.22 Other specified diabetes mellitus with diabetic chronic kidney disease; I12.9 Hypertensive chronic kidney disease with stage 1 through stage 4 chronic kidney disease, or unspecified chronic kidney disease; N18.3 Chronic kidney disease, stage 3 (moderate); Z94.0 Kidney transplant status; Z79.4 Long term (current) use of insulin; Z95.1 Presence of aortocoronary bypass graft; Z79.899 Other long term (current) drug therapy; Z88.8 Allergy status to other drugs, medicaments and biological substances; Z87.891 Personal history of nicotine dependence
CPT/HCPCS: 88305; 43239; J2001; J2704; G0105; 45378

== ENCOUNTER 2018-07-18 10:23 | Inpatient (IN) | payer MEDICARE, BC ==
[2018-07-18] MEDS ORDERED: ACETAMINOPHEN TAB 325 MG TAB PO STA ×2 (10:58→12:11)
--- NOTE | 2018-07-18 10:59 | ED ---
General Adult HPI <Marcus Sarkar - Last Filed: 07/18/18 14:13> - General Source: patient, EMS Mode of arrival: EMS Limitations: no limitations <Salina Nunn - Last Filed: 07/18/18 16:33> - General Chief complaint: Weakness Stated complaint: Weakness Time Seen by Provider: 07/18/18 10:57 - History of Present Illness Initial comments: 67-year-old female with past medical history of hypertension, diabetes, CAD presents today for chief complaint of generalized weakness. Patient states that she has had decreased appetite and fluid intake as well as increased urination the past 3 days. Patient states that she feels weak all over. She denies any specific weakness of the upper extremities or lower extremities. Patient did mention that she has not taken her insulin for the past few days because she has not been eating as much usually has. Last meal was at lunch yesterday half of a sandwhich. Patient denies any dizziness, chest pain, shorts breath, dyspnea on exertion, diarrhea, constipation, urgency, hematuria, abdominal pain, nausea, vomiting, back pain, fever, chills, night sweats. Patient does state that she has had some sinus drainage with phlegm production however this has been mild and not concerning to her. Upon arrival patient is febrile, remainder of vital signs within acceptable limits. Patient appears well in no acute distress. (Salina Nunn) - Related Data Home Medications Medication Instructions Recorded Confirmed Cholecalciferol [Vitamin D3] 2,000 unit PO DAILY 03/14/14 07/18/18 Magnesium Oxide [Mag-Ox] 500 mg PO BID 03/14/14 07/18/[address] [Myfortic] 360 mg PO BID 03/14/14 07/18/18 Aspirin 325 mg PO DAILY 05/06/15 07/18/18 INSULIN LISPRO (HumaLOG) [humaLOG] See Protocol SQ ACHS 03/21/16 07/18/18 Cranberry Fruit Extract [Cranberry] 500 mg PO DAILY 07/28/16 07/18/18 diphenhydrAMINE [Benadryl] 25 mg PO DAILY PRN 07/28/16 07/18/18 Tacrolimus [Prograf] 2 mg PO BID 09/13/17 07/18/18 Insulin Glargine,Hum.rec.anlog 40 unit SQ HS 11/26/17 07/18/18 [Lantus Solostar] Isosorbide Mononitrate ER [Imdur] 30 mg PO DAILY 11/26/17 07/18/18 Latanoprost Ophth [Xalatan 0.005%] 1 drops BOTH EYES HS 04/06/18 07/18/18 Previous Rx's Medication Instructions Recorded Nitroglycerin Sl Tabs [Nitrostat] 0.4 mg SUBLINGUAL Q5M PRN #20 tab 12/24/15 Allergies Allergy/AdvReac Type Severity Reaction Status Date / Time adhesive tape Allergy tears skin Verified 07/18/18 10:47 latex Allergy Unknown Verified 07/18/18 10:47 metoclopramide HCl Allergy Unknown Verified 07/18/18 10:47 [From Reglan] grapefruit [Grapefruit] AdvReac reaction Verified 07/18/18 10:47 with simvastatin ibuprofen AdvReac kidney Verified 07/18/18 10:47 failure/transplant ropinirole [From Requip] AdvReac LEG CRAMPS Verified 07/18/18 10:47 nupur Allergy Rash/Hives Uncoded 05/26/18 09:53 Review of Systems ROS Other: All systems not noted in ROS Statement are negative. <Marcus Sarkar - Last Filed: 07/18/18 14:13> ROS Other: All systems not noted in ROS Statement are negative. Constitutional: Reports: weakness (generalized weakness). Denies: fever, chills , night sweats ENT: Denies: ear pain, throat pain Respiratory: Denies: cough, dyspnea, wheezes, hemoptysis, stridor Cardiovascular: Denies: chest pain, palpitations, dyspnea on exertion, orthopnea , edema Endocrine: Reports: fatigue Gastrointestinal: Denies: abdominal pain, nausea, vomiting, diarrhea, constipation, hematemesis, melena, hematochezia Genitourinary: Reports: frequency (increased frequency x2 days). Denies: urgency, dysuria, hematuria, discharge Musculoskeletal: Denies: back pain Skin: Denies: rash, lesions, change in color Neurological: Denies: headache, numbness, paresthesias, confusion, abnormal gait <Salina Nunn - Last Filed: 07/18/18 16:33> ROS Statement: Those systems with pertinent positive or pertinent negative responses have been documented in the HPI. Past Medical History Past Medical History: Coronary Artery Disease (CAD), Diabetes Mellitus, Eye Disorder, Hyperlipidemia, Hypertension, Myocardial Infarction (AR), Renal Disease, Skin Disorder Additional Past Medical History / Comment(s): R eye glaucoma, retinal bleed and little vision, renal failure Stage 3 - R renal transplant in 2008, UTIs with sepsis, Last Myocardial Infarction Date:: 2009 History of Any Multi-Drug Resistant Organisms: None Reported Past Surgical History: Appendectomy, Cholecystectomy, Coronary Bypass/CABG, Heart Catheterization, Hernia Repair, Hysterectomy Additional Past Surgical History / Comment(s): 2009 right kidney transplant, 4 vessel CABG in 2009, umbilical hernia repair, colonoscopies, silvia cataract removed, R eye laser surgeries. Past Anesthesia/Blood Transfusion Reactions: No Reported Reaction Additional Past Anesthesia/Blood Transfusion Reaction / Comment(s): unknown Past Psychological History: No Psychological Hx Reported Smoking Status: Former smoker Past Alcohol Use History: None Reported Past Drug Use History: None Reported - Past Family History Brother(s) Family Medical History: Cancer Mother Family Medical History: Coronary Artery Disease (CAD) Additional Family Medical History / Comment(s): mom had heart disease Father Family Medical History: Cancer Additional Family Medical History / Comment(s): lung and pancreatic cancer <Salina Nunn - Last Filed: 07/18/18 16:33> General Exam <Marcus Sarkar - Last Filed: 07/18/18 14:13> Limitations: no limitations <Salina Nunn - Last Filed: 07/18/18 16:33> - General Exam Comments Initial Comments: General: The patient is awake and alert, in no distress, and does not appear acutely ill. Eye: +3 pupils are equal, round and reactive to light, extra-ocular movements are intact. No nystagmus. There is normal conjunctiva bilaterally. No signs of icterus. Ears, nose, mouth and throat: There are moist mucous membranes and no oral lesions. Neck: The neck is supple, there is no tenderness or JVD. Cardiovascular: There is a regular rate and rhythm. No murmur, rub or gallop is appreciated. Respiratory: Lungs are clear to auscultation, respirations are non-labored, breath sounds are equal. No wheezes, stridor, rales, or rhonchi. Gastrointestinal: Large vertical scar midline in abdomen. Soft, non-distended, non-tender abdomen without masses or organomegaly noted. There is no rebound or guarding present. No CVA tenderness. Bowel sounds are unremarkable. Musculoskeletal: Normal ROM, no tenderness. Strength 5/5. Sensation intact. Radial ulses equal bilaterally 2+. Neurological: A&O x 3. CN II-XII intact, There are no obvious motor or sensory deficits. Coordination appears grossly intact. Speech is normal. Skin: Skin is warm and dry and no rashes or lesions are noted. Psychiatric: Cooperative, appropriate mood & affect, normal judgment. (Salina Nunn) Course <Marcus Sarkar - Last Filed: 07/18/18 14:13> <Salina Nunn - Last Filed: 07/18/18 16:33> Vital Signs 07/18/18 07/18/18 07/18/18 10:28 13:47 15:36 Temperature 101.5 F H 100.6 F H 99.4 F Pulse Rate 86 83 91 Respiratory 18 18 18 Rate Blood Pressure 163/69 110/62 147/68 O2 Sat by Pulse 98 95 98 Oximetry - Reevaluation(s) Reevaluation #1: 07/18/18 14:13 Patient does not meet sepsis criteria. Patient reevaluated by myself, Dr. Sarkar. Patient resting comfortably in bed. Patient still feels weak and does not feel comfortable with discharge home. Case was discussed with Dr. feliz, who will admit for Dr. Wong. IV antibiotics will be started. (Marcus Sarkar) EKG Findings - EKG Comments: EKG Findings:: Ventricular rate 94 beats per minutes, NV interval 156 ms, QRS duration 100 ms, QT/QTC 332/4:15 milliseconds. This is normal sinus. No ST elevation or depression. There is nonspecific ST and T-wave abnormalities. EKG was compared with previous EKG November 2017. There are no changes or findings concerning for ACS. <Salina Nunn - Last Filed: 07/18/18 16:33> Medical Decision Making - Lab Data Result diagrams: 07/18/18 12:46 07/18/18 12:46 <Marcus Sarkar - Last Filed: 07/18/18 14:13> - Lab Data Result diagrams: 07/18/18 12:46 07/18/18 12:46 <Salina Nunn - Last Filed: 07/18/18 16:33> - Medical Decision Making 67 female with PMH of UTI with sepsis with cc of increased frequency and generalized weakness. Pt febrile upon arrivel given tylenol and fluid bolus. He unremarkable, no focal neurological deficits. CXR obtained (-). UA revealed UTI. Labs as noted above, low magnesium was replaced via oral Mag. Pt given rocephin, upon review of previous urine culture sensitivities. Pt does not meet sepsis criteria at this time, pt overall appear well but given complaints of weakness and history of sepsis from UTI I feel admission is required. Dr. Harris accepted admission after speaking with Dr. Sarkar- no further orders at this time. Pt transferred to floor in stable condition. (Salina Nunn) - Lab Data Lab Results 07/18/18 07/18/18 07/18/18 Range/Units 11:22 12:46 12:46 WBC 5.3 (3.8-10.6) k/uL RBC 4.70 (3.80-5.40) m/uL Hgb 13.2 (11.4-16.0) gm/dL Hct 40.3 (34.0-46.0) % MCV 85.8 (80.0-100.0) fL MCH 28.1 (25.0-35.0) pg MCHC 32.8 (31.0-37.0) g/dL RDW 13.1 (11.5-15.5) % Plt Count 142 L (150-450) k/uL Neutrophils % 78 % Lymphocytes % 13 % Monocytes % 5 % Eosinophils % 1 % Basophils % 1 % Neutrophils # 4.2 (1.3-7.7) k/uL Lymphocytes # 0.7 L (1.0-4.8) k/uL Monocytes # 0.3 (0-1.0) k/uL Eosinophils # 0.1 (0-0.7) k/uL Basophils # 0.0 (0-0.2) k/uL PT 11.0 (9.0-12.0) sec INR 1.1 (<1.2) APTT 22.7 (22.0-30.0) sec Sodium (137-145) mmol/L Potassium (3.5-5.1) mmol/L Chloride (98-107) mmol/L Carbon Dioxide (22-30) mmol/L Anion Gap mmol/L BUN (7-17) mg/dL Creatinine (0.52-1.04) mg/dL Est GFR (CKD-EPI)AfAm (>60 ml/min/1.73 sqM) Est GFR (CKD-EPI)NonAf (>60 ml/min/1.73 sqM) Glucose (74-99) mg/dL Plasma Lactic Acid Silvino (0.7-2.0) mmol/L Calcium (8.4-10.2) mg/dL Magnesium (1.6-2.3) mg/dL Total Bilirubin (0.2-1.3) mg/dL AST (14-36) U/L ALT (9-52) U/L Alkaline Phosphatase (38-126) U/L Total Creatine Kinase (30-135) U/L CK-MB (CK-2) (0.0-2.4) ng/mL CK-MB (CK-2) Rel Index Troponin I (0.000-0.034) ng/mL Total Protein (6.3-8.2) g/dL Albumin (3.5-5.0) g/dL Urine Color Yellow Urine Appearance Turbid H (Clear) Urine pH 8.0 (5.0-8.0) Ur Specific [place] 1.017 (1.001-1.035) Urine Protein 3+ H (Negative) Urine Glucose (UA) Negative (Negative) Urine Ketones Negative (Negative) Urine Blood Small H (Negative) Urine Nitrite Negative (Negative) Urine Bilirubin Negative (Negative) Urine Urobilinogen <2.0 (<2.0) mg/dL Ur Leukocyte Esterase Large H (Negative) Urine RBC 42 H (0-5) /hpf Urine WBC >182 H (0-5) /hpf Urine WBC Clumps Many H (None) /hpf Ur Squamous Epith Cells 5 H (0-4) /hpf Urine Mucus Rare H (None) /hpf 07/18/18 07/18/18 07/18/18 Range/Units 12:46 12:46 12:46 WBC (3.8-10.6) k/uL RBC (3.80-5.40) m/uL Hgb (11.4-16.0) gm/dL Hct (34.0-46.0) % MCV (80.0-100.0) fL MCH (25.0-35.0) pg MCHC (31.0-37.0) g/dL RDW (11.5-15.5) % Plt Count (150-450) k/uL Neutrophils % % Lymphocytes % % Monocytes % % Eosinophils % % Basophils % % Neutrophils # (1.3-7.7) k/uL Lymphocytes # (1.0-4.8) k/uL Monocytes # (0-1.0) k/uL Eosinophils # (0-0.7) k/uL Basophils # (0-0.2) k/uL PT (9.0-12.0) sec INR (<1.2) APTT (22.0-30.0) sec Sodium 135 L (137-145) mmol/L Potassium 5.0 (3.5-5.1) mmol/L Chloride 100 (98-107) mmol/L Carbon Dioxide 25 (22-30) mmol/L Anion Gap 10 mmol/L BUN 25 H (7-17) mg/dL Creatinine 1.40 H (0.52-1.04) mg/dL Est GFR (CKD-EPI)AfAm 44 (>60 ml/min/1.73 sqM) Est GFR (CKD-EPI)NonAf 38 (>60 ml/min/1.73 sqM) Glucose 206 H (74-99) mg/dL Plasma Lactic Acid Silvino 0.8 (0.7-2.0) mmol/L Calcium 8.7 (8.4-10.2) mg/dL Magnesium 1.3 L (1.6-2.3) mg/dL Total Bilirubin 1.0 (0.2-1.3) mg/dL AST 21 (14-36) U/L ALT 10 (9-52) U/L Alkaline Phosphatase 91 (38-126) U/L Total Creatine Kinase 35 (30-135) U/L CK-MB (CK-2) 0.2 (0.0-2.4) ng/mL CK-MB (CK-2) Rel Index 0.6 Troponin I 0.029 (0.000-0.034) ng/mL Total Protein 6.9 (6.3-8.2) g/dL Albumin 3.3 L (3.5-5.0) g/dL Urine Color Urine Appearance (Clear) Urine pH (5.0-8.0) Ur Specific [place] (1.001-1.035) Urine Protein (Negative) Urine Glucose (UA) (Negative) Urine Ketones (Negative) Urine Blood (Negative) Urine Nitrite (Negative) Urine Bilirubin (Negative) Urine Urobilinogen (<2.0) mg/dL Ur Leukocyte Esterase (Negative) Urine RBC (0-5) /hpf Urine WBC (0-5) /hpf Urine WBC Clumps (None) /hpf Ur Squamous Epith Cells (0-4) /hpf Urine Mucus (None) /hpf Disposition <Marcus Sarkar - Last Filed: 07/18/18 14:13> Decision to Admit Reason: Admit from EC Decision Date: 07/18/18 Decision Time: 15:16 <Salina Nunn - Last Filed: 07/18/18 16:33> Clinical Impression: UTI (urinary tract infection), Generalized weakness Disposition: ADMITTED IP TO THIS [facility] Condition: Stable
[2018-07-18 11:50] LABS: Appearance,Urine Turbid (Clear); Bilirubin,Urine Negative (Negative); Blood,Urine Small (Negative); Color,Urine Yellow; Glucose,Urine (UA) Negative (Negative); Ketones,Urine Negative (Negative); Leukocyte Esterase,Urine Large (Negative); Mucus,Urine Rare /hpf; Nitrite,Urine Negative (Negative); Protein,Urine 3+ (Negative); RBC,Urine 42 /hpf (0-5); Specific Gravity,Urine 1.017 (1.001-1.035); Squamous Epithelial Cell,Urine 5 /hpf (0-4); Urobilinogen,Urine <2.0 mg/dL (<2.0); WBC,Urine >182 /hpf (0-5)
[2018-07-18] MEDS ORDERED: SODIUM CHLORIDE 0.9% 1,000 ML IV ONE (12:45)
[2018-07-18 13:10] LABS: Basophils % (A) 1 %; Eosinophils # (A) 0.1 k/uL (0-0.7); Eosinophils % (A) 1 %; HCT 40.3 % (34.0-46.0); HGB 13.2 gm/dL (11.4-16.0); Lymphocytes # (A) 0.7 k/uL (1.0-4.8); Lymphocytes % (A) 13 %; MCH 28.1 pg (25.0-35.0); MCHC 32.8 g/dL (31.0-37.0); MCV 85.8 fL (80.0-100.0); Mean Platelet Volume 7.7; Monocytes # (A) 0.3 k/uL (0-1.0); Monocytes % (A) 5 %; Neutrophils # (A) 4.2 k/uL (1.3-7.7); Neutrophils % (A) 78 %; Platelet Count 142 k/uL (150-450); RDW 13.1 % (11.5-15.5); WBC 5.3 k/uL (3.8-10.6)
[2018-07-18 13:19] LABS: INR 1.1 (<1.2); Partial Thromboplastin Time 22.7 sec (22.0-30.0)
--- NOTE | 2018-07-18 13:20 | XR ---
EXAMINATION TYPE: XR chest 2V DATE OF EXAM: 07/18/2018 COMPARISON: 11/26/2017 HISTORY: Weakness TECHNIQUE: Frontal and lateral views of the chest are obtained. FINDINGS: There is no focal air space opacity, pleural effusion, or pneumothorax seen. Post CABG ch anges of the chest are noted. Right hemidiaphragm elevation is chronic and mild. The cardiac silhouet te size is within normal limits. The osseous structures are intact. Minimal degenerative changes of the thoracic spine are noted. Moderate acromioclavicular arthropathy is seen bilaterally. IMPRESSION: No acute cardiopulmonary process.
[2018-07-18 13:29] LABS: Albumin 3.3 g/dL (3.5-5.0); Calcium 8.7 mg/dL (8.4-10.2); Magnesium 1.3 mg/dL (1.6-2.3); Total Protein 6.9 g/dL (6.3-8.2)
[2018-07-18 13:59] LABS: Creatine Kinase MB 0.2 ng/mL (0.0-2.4); Troponin I 0.029 ng/mL (0.000-0.034)
[2018-07-18] MEDS ORDERED: MAGNESIUM OXIDE 400 MG TAB PO STA (14:04)
[2018-07-18] MEDS ORDERED: NALOXONE 0.4 MG/ML 1 ML VIAL IV PRN (14:11)
[2018-07-18] MEDS: SODIUM CHLORIDE 0.9% 1,000 ML IV SCH (15:34)
[2018-07-18] MEDS ORDERED: NITROGLYCERIN SL TABS 0.4 MG TAB SUBLINGUAL PRN (17:20)
[2018-07-18 17:32] LABS: Glucose,Whole Blood 168 mg/dL (75-99)
[2018-07-18] MEDS: ACETAMINOPHEN TAB 325 MG TAB PO PRN (17:47)
[2018-07-18] MEDS: INSULIN ASPART 100 UNIT/ML 1 ML 10 ML VIAL SQ SCH (17:48)
[2018-07-18 20:38] LABS: Glucose,Whole Blood 161 mg/dL (75-99)
[2018-07-18] MEDS: INSULIN DETEMIR 100 UNIT/ML 10 ML VIAL SQ SCH (21:54)
[2018-07-18] MEDS: LATANOPROST 0.005% OPHTH DROPS 2.5 ML BTL BOTH EYES SCH (21:56)
[2018-07-18] MEDS: MYCOPHENOLATE SODIUM DR 180 MG TABLET.DR PO SCH (21:57)
[2018-07-18] MEDS: MAGNESIUM OXIDE 400 MG TAB PO SCH (21:57)
[2018-07-18] MEDS: TACROLIMUS 1 MG CAP PO SCH (21:57)
[2018-07-19] MEDS: ACETAMINOPHEN TAB 325 MG TAB PO PRN ×2 (03:11→08:23)
[2018-07-19 07:17] LABS: Glucose,Whole Blood 119 mg/dL (75-99)
[2018-07-19] MEDS: INSULIN ASPART 100 UNIT/ML 1 ML 10 ML VIAL SQ SCH ×3 (07:35→17:53)
[2018-07-19] MEDS: MAGNESIUM OXIDE 400 MG TAB PO SCH ×2 (08:23→20:08)
[2018-07-19] MEDS: ISOSORBIDE MONONITRATE ER 30 MG TAB.ER.24H PO SCH (08:23)
[2018-07-19] MEDS: MYCOPHENOLATE SODIUM DR 180 MG TABLET.DR PO SCH ×2 (08:23→20:08)
[2018-07-19] MEDS: TACROLIMUS 1 MG CAP PO SCH ×2 (08:23→20:08)
[2018-07-19] MEDS ORDERED: ASPIRIN 325 MG TAB PO SCH (09:00)
[2018-07-19] MEDS ORDERED: NON-FORMULARY DRUG (Cranberry Fruit Extract [Cranberry] 500 MG) PO SCH (09:00)
[2018-07-19 09:51] LABS: Basophils % (A) 1 %; Eosinophils % (A) 1 %; HCT 38.7 % (34.0-46.0); HGB 12.8 gm/dL (11.4-16.0); Lymphocytes # (A) 0.8 k/uL (1.0-4.8); Lymphocytes % (A) 14 %; MCH 28.4 pg (25.0-35.0); MCHC 33.1 g/dL (31.0-37.0); MCV 85.9 fL (80.0-100.0); Mean Platelet Volume 8.5; Monocytes # (A) 0.3 k/uL (0-1.0); Monocytes % (A) 5 %; Neutrophils # (A) 4.2 k/uL (1.3-7.7); Neutrophils % (A) 77 %; Platelet Count 142 k/uL (150-450); WBC 5.4 k/uL (3.8-10.6)
[2018-07-19 10:04] LABS: Calcium 8.3 mg/dL (8.4-10.2); Magnesium 1.3 mg/dL (1.6-2.3); Potassium 4.2 mmol/L (3.5-5.1)
[2018-07-19 11:58] LABS: Glucose,Whole Blood 198 mg/dL (75-99)
[2018-07-19] MEDS: SODIUM CHLORIDE 0.9% 1,000 ML IV SCH (12:22)
--- NOTE | 2018-07-19 14:57 | HP ---
HISTORY AND PHYSICAL DATE OF ADMISSION: 07/18/2018 DATE OF SERVICE: 07/19/2018 PRESENTING COMPLAINT: Weak and tired. HISTORY OF PRESENTING COMPLAINT: This is a pleasant 67-year-old patient who follows with Dr. Wong. Patient's chronic stable medical conditions include coronary artery disease, diabetes, hyperlipidemia, hypertension, gait dysfunction, uses a walker and renal transplant in 2008. Patient for the last 2 days started to become more and more weak, decreased appetite, tired, run down. Started having urinary urgency, weak, tired, run down, very dizzy, lightheaded, also was having fevers, decided to present to the ER. Patient was found to have an infected appearing urine, started on IV antibiotics, IV fluids, admitted for the same. REVIEW OF SYSTEMS: CONSTITUTIONAL: Febrile, weak, tired. HEENT: None. RESPIRATORY: None. CARDIOVASCULAR: None. GASTROINTESTINAL None. GENITOURINARY: Urinary frequency. MUSCULOSKELETAL: Some pain in joints. DERMATOLOGICAL None. HEMATOLOGICAL: None. LYMPHATIC: None. PSYCHIATRY: None. NEUROLOGICAL: Uses a walker. PAST MEDICAL HISTORY: Coronary artery disease, bypass, diabetes, hyperlipidemia, hypertension, ankle bleed, decreased vision, renal failure, renal transplant 2008, nephrolithiasis. PAST SURGICAL HISTORY: Appendectomy, cholecystectomy, coronary bypass, cardiac cath, hernia repair in 2008, right kidney transplant, 4 vessel coronary bypass, umbilical hernia repair, colonoscopy, left cataract removed. SOCIAL HISTORY: Patient lives with adult grandson and other grand kids. Has a both a cane and a walker. Patient smoked for about 30 years, stopped in 2000, alcohol none. FAMILY HISTORY: Coronary artery disease. HOME MEDICATIONS: 1. Benadryl 25 mg daily p.r.n. 2. Prograf 2 mg p.o. b.i.d. 3. Nitrostat 0.4 mg sublingual q.5 p.r.n. 4. Myfortic 360 mg p.o. b.i.d. 5. Magnesium oxide 500 mg b.i.d. 6. Xalatan 0.005% 1 drop to both eyes q.h.s. 7. Imdur ER 30 mg p.o. daily. 8. Insulin Lantus 40 units subcu q.h.s. 9. Lispro q.a.c., q.h.s. 10.Cranberry 500 mg p.o. daily. 11.Vitamin D3 two thousand units p.o. daily. 12.Aspirin 325 p.o. daily. ALLERGY: To ADHESIVE TAPE, LATEX, REGLAN, BAUER FOOD, IBUPROFEN, REQUIP, CHERIE. PHYSICAL EXAMINATION: Vital signs on presentation, temperature 101.5, pulse 117, respirations 18, blood pressure 130/76, pulse ox 90% on room air. GENERAL APPEARANCE: Well built, BMI 36.6. Lying in bed, tired-appearing. EYES: Pupils equal, conjunctivae are normal. HEENT: External appearance of nose and ear normal, oral cavity normal. NECK: JVD not raised. Mass not palpable. RESPIRATORY: Effort normal, lungs decreased breath sounds. CARDIOVASCULAR: First and second sounds normal, no edema. ABDOMEN: Soft, nontender. Liver and spleen not palpable. LYMPHATIC: No lymph node palpable in neck or axillae. PSYCHIATRY: Alert and oriented x3. Mood and affect normal. NEUROLOGICAL: Pupils equal. Cranial nerves grossly intact. Power and sensation grossly intact. MUSCULOSKELETAL: Evidence of osteoarthritis, especially in the hands and knees. INVESTIGATIONS: White count 5.3, hemoglobin 13.2, potassium 5, BUN 25, creatinine 1.40. Patient's blood work from November of this year was BUN 29, creatinine 1.05. UA positive for leukocyte esterase, WBC. EKG tracing, personally reviewed by me shows normal sinus rhythm, nonspecific T-wave changes. Chest x-ray, personally reviewed by me, nil acute. ASSESSMENT: 1. Acute urinary tract infection, probably from cystitis causing sepsis, present on admission. 2. Coronary artery disease with prior history of coronary bypass. 3. Diabetes mellitus type 2, chronically on insulin. 4. Hyperlipidemia. 5. Essential hypertension. 6. History of renal transplant 2008. 7. Chronic kidney disease stage III from transplant kidney. 8. Chronic gait dysfunction, uses a walker. PLAN: Patient is on IV ceftriaxone, IV fluids. Home medications resumed. Nephrology was consulted. Given the EKG changes, even though there are no symptoms, will get a Cardiology opinion. Care was discussed with the patient. Questions were answered. MMODL / IJN: [id number] /
--- NOTE | 2018-07-19 15:21 | P.CRDCN ---
History of Present Illness History of present illness: This is a 67-year-old female past medical history significant for coronary artery disease status post bypass grafting 2010 SVG today, SVG to OM, SVG to RCA and RIVERA to LAD, hypertension, dyslipidemia, diabetes mellitus and chronic kidney disease status post kidney transplant. She follows with Dr. Girard in the office. We have been asked to see her in consultation for EKG abnormalities. She presented to the hospital with symptoms of increased weakness , fatigue, poor oral intake, dehydration and fever. She states she was sitting on the couch and didn't have enough strength to get up. Upon arrival to ED she was found to have a urinary tract infection. She denies chest pain, shortness of breath, dizziness, palpitations, nausea, vomiting, diaphoresis or orthopnea. EKG reveals sinus mechanism with T-wave inversions noted in the lateral leads as well as nonspecific inferior abnormalities. When compared to previous EKG from 2016 prior to catheterization there is no change. Chest x-ray is negative for an acute cardiopulmonary process. Laboratory data reviewed, hemoglobin 12.8, platelets 142, sodium 136, potassium 4.2, creatinine 1.27, magnesium 1.3, cardiac enzymes negative 1. Most recent cardiac catheterization performed 2016 reveals occluded SVG to OM, occluded SVG to diagonal, RIVERA to LAD unable to cannulate with a patent SVG to RCA. Most recent echocardiogram obtained 2016 reveals preserved left ventricular systolic function with ejection fraction 50-55%, moderate concentric left ventricular hypertrophy, mild MR, mild TR and hypokinesia noted to basal inferior and mid to basal inferolateral wall. Current cardiac medications include aspirin 325 mg daily and Imdur 30 mg daily. She is also on Benadryl, Prograf, Lantus and Humalog. Review of Systems At the time of my exam: CONSTITUTIONAL: Denies fever. Denies chills. Complains of generalized weakness. EYES: Denies blurred vision. Denies vision changes. Denies eye pain. EARS, NOSE, MOUTH & THROAT: Denies headache. Denies sore throat. Denies ear pain. CARDIOVASCULAR: Denies chest pain. Denies shortness of breath. Denies orthopnea. Denies PND. Denies palpitations. RESPIRATORY: Denies cough. GASTROINTESTINAL: Denies abdominal pain. Denies diarrhea. Denies constipation. Denies nausea. Denies vomiting. MUSCULOSKELETAL: Denies myalgias. INTEGUMENTARY: Denies pruitis. Denies rash. NEUROLOGIC: Denies numbness. Denies tingling. Denies weakness. PSYCHIATRIC: Denies anxiety. Denies depression. ENDOCRINE: Denies fatigue. Denies weight change. Denies polydipsia. Denies polyurina. GENITOURINARY: Denies burning, hematuria or urgency with micturation. HEMATOLOGIC: Denies history of anemia. Denies bleeding. Past Medical History Past Medical History: Coronary Artery Disease (CAD), Diabetes Mellitus, Eye Disorder, Hyperlipidemia, Hypertension, Myocardial Infarction ([place]), Renal Disease, Skin Disorder Additional Past Medical History / Comment(s): R eye glaucoma, retinal bleed and little vision, renal failure Stage 3 - R renal transplant in 2008, UTIs with sepsis, Last Myocardial Infarction Date:: 2009 History of Any Multi-Drug Resistant Organisms: None Reported Past Surgical History: Appendectomy, Cholecystectomy, Coronary Bypass/CABG, Heart Catheterization, Hernia Repair, Hysterectomy Additional Past Surgical History / Comment(s): 2009 right kidney transplant, 4 vessel CABG in 2009, umbilical hernia repair, colonoscopies, silvia cataract removed, R eye laser surgeries. Past Anesthesia/Blood Transfusion Reactions: No Reported Reaction Additional Past Anesthesia/Blood Transfusion Reaction / Comment(s): unknown Past Psychological History: No Psychological Hx Reported Smoking Status: Former smoker Past Alcohol Use History: None Reported Past Drug Use History: None Reported - Past Family History Brother(s) Family Medical History: Cancer Mother Family Medical History: Coronary Artery Disease (CAD) Additional Family Medical History / Comment(s): mom had heart disease Father Family Medical History: Cancer Additional Family Medical History / Comment(s): lung and pancreatic cancer Medications and Allergies Home Medications Medication Instructions Recorded Confirmed Type Cholecalciferol [Vitamin D3] 2,000 unit PO DAILY 03/14/14 07/18/18 History Magnesium Oxide [Mag-Ox] 500 mg PO BID 03/14/14 07/18/[address] [Myfortic] 360 mg PO BID 03/14/14 07/18/18 History Aspirin 325 mg PO DAILY 05/06/15 07/18/18 History Nitroglycerin Sl Tabs [Nitrostat] 0.4 mg SUBLINGUAL Q5M PRN #20 tab 12/24/1505/28 Rx INSULIN LISPRO (HumaLOG) [humaLOG] See Protocol SQ ACHS 03/21/16 07/18/18 History Cranberry Fruit Extract [Cranberry] 500 mg PO DAILY 07/28/16 07/18/18 History diphenhydrAMINE [Benadryl] 25 mg PO DAILY PRN 07/28/16 07/18/18 History Tacrolimus [Prograf] 2 mg PO BID 09/13/17 07/18/18 History Insulin Glargine,Hum.rec.anlog 40 unit SQ HS 11/26/17 07/18/18 History [Lantus Solostar] Isosorbide Mononitrate ER [Imdur] 30 mg PO DAILY 11/26/17 07/18/18 History Latanoprost Ophth [Xalatan 0.005%] 1 drops BOTH EYES HS 04/06/18 07/18/18 History Allergies Allergy/AdvReac Type Severity Reaction Status Date / Time adhesive tape Allergy tears skin Verified 07/18/18 10:47 latex Allergy Unknown Verified 07/18/18 10:47 metoclopramide HCl Allergy Unknown Verified 07/18/18 10:47 [From Reglan] grapefruit [Grapefruit] AdvReac reaction Verified 07/18/18 10:47 with simvastatin ibuprofen AdvReac kidney Verified 07/18/18 10:47 failure/transplant ropinirole [From Requip] AdvReac LEG CRAMPS Verified 07/18/18 10:47 nupur Allergy Rash/Hives Uncoded 05/26/18 09:53 Physical Exam Vitals: Vital Signs Temp Pulse Pulse Resp BP BP Pulse Ox 07/19/18 13:59 98.6 F 80 16 96/50 93 L 07/19/18 06:07 100.0 F H 07/19/18 06:00 101.5 F H 88 18 128/57 91 L 07/19/18 04:30 98.6 F 07/19/18 04:00 98.8 F 07/19/18 03:00 100.8 F H 07/18/18 23:00 98.8 F 88 18 150/68 94 L 07/18/18 19:10 99.7 F H 07/18/18 16:37 18 07/18/18 16:30 101.0 F H 117 H 18 134/76 90 L 07/18/18 15:36 99.4 F 91 18 147/68 98 Intake and Output 07/18/18 07/19/18 07/19/18 22:59 06:59 14:59 Intake Total 240 Balance 240 Intake: Oral 240 Other: Voiding Method Toilet Toilet # Voids 2 3 Blood pressure 96/50 heart rate 88 afebrile maintaining oxygen saturation on room air GENERAL: This is a 67-year-old female in no apparent distress at the time of my examination. Obese. HEENT: Head is atraumatic, normocephalic. Pupils are equal, round. Sclerae anicteric. Conjunctivae are clear. Mucous membranes of the mouth are moist. Neck is supple. There is no jugular venous distention. No carotid bruit is heard. LUNGS: Clear to auscultation no wheezes, rales or rhonchi. No chest wall tenderness is noted on palpation or with deep breathing. HEART: Regular rate and rhythm with systolic ejection murmur at the base, no rubs or gallops. S1 and S2 heard. ABDOMEN: Soft, nontender. Bowel sounds are heard. No organomegaly noted. EXTREMITIES: No evidence of peripheral edema and no calf tenderness noted. VASCULAR: Radial and dorsalis pedis pulses palpated, no evidence of clubbing. NEUROLOGIC: Patient is awake, alert and oriented x3. Results 07/19/18 09:05 07/19/18 09:05 CBC 07/19/18 Range/Units 09:05 WBC 5.4 (3.8-10.6) k/uL RBC 4.50 (3.80-5.40) m/uL Hgb 12.8 (11.4-16.0) gm/dL Hct 38.7 (34.0-46.0) % Plt Count 142 L (150-450) k/uL Comprehensive Metabolic Panel 07/19/18 Range/Units 09:05 Sodium 136 L (137-145) mmol/L Potassium 4.2 (3.5-5.1) mmol/L Chloride 103 (98-107) mmol/L Carbon Dioxide 24 (22-30) mmol/L BUN 24 H (7-17) mg/dL Creatinine 1.27 H (0.52-1.04) mg/dL Glucose 119 H (74-99) mg/dL Calcium 8.3 L (8.4-10.2) mg/dL Current Medications Generic Name Dose Route Start Last Admin Trade Name Freq PRN Reason Stop Dose Admin Acetaminophen 650 mg 07/18/18 17:23 07/19/18 08:23 Tylenol Tab PO 650 mg Q6HR PRN Administration Fever and/ or MILD Pain Aspirin 325 mg 07/19/18 09:00 07/19/18 08:23 Aspirin PO 325 mg DAILY ART Administration Sodium Chloride 1,000 mls @ 50 mls/hr 07/18/18 14:15 07/19/18 12:22 Saline 0.9% IV 50 mls/hr .Q20H ART Administration Ceftriaxone Sodium 1,000 mg/ 50 mls @ 100 mls/hr 07/18/18 15:00 07/18/18 15: 33 Sodium Chloride IVPB 100 mls/hr DAILY@1600 ART Administration Insulin Aspart 0 unit 07/18/18 17:30 07/19/18 12:22 Novolog SQ 3 unit AC-TID ART Administration Protocol Insulin Detemir 40 unit 07/18/18 21:00 07/18/18 21:54 Levemir SQ 40 unit HS ART Administration Isosorbide Mononitrate 30 mg 07/19/18 09:00 07/19/18 08:23 Imdur PO 30 mg DAILY ART Administration Latanoprost 1 drops 07/18/18 21:00 07/18/18 21:56 Xalatan 0.005% BOTH EYES 1 drops HS ART Administration Magnesium Oxide 400 mg 07/18/18 23:00 07/19/18 08:23 Mag-Ox PO 400 mg BID ART Administration Mycophenolate Sodium 360 mg 07/18/18 21:00 07/19/18 08:23 Myfortic PO 360 mg BID ART Administration Naloxone HCl 0.2 mg 07/18/18 14:11 Narcan IV Q2M PRN Opioid Reversal Nitroglycerin 0.4 mg 07/18/18 17:20 Nitrostat SUBLINGUAL Q5M PRN Chest Pain Tacrolimus 2 mg 07/18/18 21:00 07/19/18 08:23 Prograf PO 2 mg BID ART Administration Intake and Output 07/18/18 07/19/18 07/19/18 22:59 06:59 14:59 Intake Total 240 Balance 240 Intake: Oral 240 Other: Voiding Method Toilet Toilet # Voids 2 3 10/09/18 09:05 07/19/18 09:05 Assessment and Plan Assessment: ASSESSMENT Acute urinary tract infection Fever History of coronary artery disease status post bypass grafting. Cath 2016 revealed occluded grafts medical therapy recommended at that time. Hypertension Dyslipidemia Diabetes mellitus Chronic kidney disease, GFR 43. PLAN Obtain 2D echocardiogram and doppler study to assess cardiac structure and function. Trend serial cardiac enzymes to rule out an acute event. Check lipid panel. There are no new EKG abnormalities. EKG abnormalities are consistent with old EKG's. Thank you kindly for this consultation. Nurse Practitioner note has been reviewed, I agree with a documented findings and plan of care. Patient was seen and examined.
[2018-07-19 16:26] LABS: Cholesterol 73 mg/dL (<200); HDL Cholesterol 23 mg/dL (40-60); LDL Cholesterol,Calculated 22 mg/dL (0-99); Triglycerides 140 mg/dL (<150)
[2018-07-19 17:49] LABS: Glucose,Whole Blood 135 mg/dL (75-99)
[2018-07-19] MEDS: LATANOPROST 0.005% OPHTH DROPS 2.5 ML BTL BOTH EYES SCH (20:07)
[2018-07-19 20:26] LABS: Glucose,Whole Blood 203 mg/dL (75-99)
[2018-07-19] MEDS: INSULIN DETEMIR 100 UNIT/ML 10 ML VIAL SQ SCH (20:56)
--- NOTE | 2018-07-20 01:14 | CONS ---
CONSULTATION HISTORY: The patient was seen earlier this morning. She is a 67-year-old female with history of a living unrelated renal transplant in 2008 with baseline creatinine of about 1.1 mg to 1.2 mg/dL. The patient was admitted with weakness. She stated she did not feel well. She had a fever after admission. She was found to have urinary tract infection with UA showing more than 182 WBCs. The patient was started on IV by antibiotics. She was also started on IV fluids. Her creatinine was 1.4 mg/dL. It is now down to 1.27. Troponin was mildly elevated at 0.058. The patient denied any chest pain, nausea, vomiting or abdominal pain. PAST MEDICAL HISTORY: End-stage renal disease, status post living unrelated renal transplant in 2008, CKD with bone disorder, coronary artery disease, type 2 diabetes, hyperlipidemia, history of glaucoma, previous urinary tract infection in November of this year. PAST SURGICAL HISTORY: Appendectomy, cholecystectomy, coronary artery bypass surgery, hernia repair, hysterectomy, renal transplant on the right side. SOCIAL HISTORY: Patient is a former smoker. No history of drug abuse or alcohol abuse. MEDICATIONS: Medications at home prior to admission included: 1. Prograf 2 mg twice a day. 2. Myfortic 360 b.i.d. 3. Magnesium. 4. Nitrostat. 5. Imdur. 6. Insulin. 7. Vitamin D3. 8. Aspirin. ALLERGIES: REGLAN, ADHESIVE TAPE, REQUIP which causes leg cramps, CHERIE, IBUPROFEN. REVIEW OF SYSTEMS: As per HPI. Other systems negative. EXAMINATION: Patient is comfortable, awake, alert, oriented x3. She is not in any acute distress. Blood pressure this morning was 128/57, heart rate of 80 per minute. Patient had a temp of 100.0, T-max was 101.5. HEENT atraumatic, normocephalic. Pupils are equal, round. JVP is not elevated. Lymph nodes are not palpable. Thyroid is not enlarged. Examination of the heart S1, S2. Examination lungs bilateral breath sounds are heard. Abdomen is soft, nontender. Examination lower extremities shows no evidence of edema. 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 LABS: Sodium of 136, potassium 4.2, serum creatinine 1.27, BUN 24, hemoglobin 12.8 g/dL, magnesium 1.3, troponin 0.058. ASSESSMENT: 1. Acute kidney injury, prerenal and associated with urinary tract infection, currently improved. Continue with IV fluids. 2. Status post renal related renal transplant in 2008, maintained on Myfortic and Prograf. Will continue current immunosuppressive medications. 3. Urinary tract infection, maintained on ceftriaxone. I do not see a urine culture. We will make sure that is sent. 4. Volume depletion, currently maintained on IV fluids and improved. 5. Type 2 diabetes, maintained on insulin. PLAN: Continue IV fluids. Check urine culture. Continue empiric antibiotics. Repeat labs in a.m. Continue current immunosuppressive medications. Thank you for this consultation. We will continue to follow the patient with you during her hospitalization. MMODL / IJN: [id number] /
[2018-07-20] MEDS: SODIUM CHLORIDE 0.9% 1,000 ML IV SCH (05:35)
[2018-07-20 07:23] LABS: Glucose,Whole Blood 84 mg/dL (75-99)
[2018-07-20] MEDS: INSULIN ASPART 100 UNIT/ML 1 ML 10 ML VIAL SQ SCH ×3 (07:43→17:53)
[2018-07-20] MEDS: TACROLIMUS 1 MG CAP PO SCH ×2 (08:43→21:02)
[2018-07-20] MEDS: MAGNESIUM OXIDE 400 MG TAB PO SCH ×2 (08:43→21:01)
[2018-07-20] MEDS: MYCOPHENOLATE SODIUM DR 180 MG TABLET.DR PO SCH ×2 (08:43→21:02)
[2018-07-20] MEDS: ISOSORBIDE MONONITRATE ER 30 MG TAB.ER.24H PO SCH (08:43)
[2018-07-20] MEDS: METOPROLOL TARTRATE 25 MG TAB PO SCH ×2 (09:05→21:02)
[2018-07-20] MEDS: ASPIRIN 81 MG PO SCH (09:06)
--- NOTE | 2018-07-20 10:09 | ECHOF ---
Referral Reason:cad history MEASUREMENTS -------- HEIGHT: 170.2 cm WEIGHT: 106.1 kg BP: 96/50 RVIDd: 2.6 cm (< 3.3) IVSd: 1.8 cm (0.6 - 1.1) LVIDd: 3.6 cm (3.9 - 5.3) LVPWd: 1.5 cm (0.6 - 1.1) IVSs: 2.0 cm LVIDs: 3.0 cm LVPWs: 1.9 cm LA Diam: 3.0 cm (2.7 - 3.8) LAESV Index (A-L): 19.73 ml/m Ao Diam: 2.9 cm (2.0 - 3.7) AV Cusp: 1.8 cm (1.5 - 2.6) MV EXCURSION: 18.872 mm (> 18.000) MV EF SLOPE: 47 mm/s (70 - 150) EPSS: 1.1 cm MV E Ross: 1.10 m/s MV DecT: 194 ms MV A Ross: 1.22 m/s MV E/A Ratio: 0.90 AV maxP.26 mmHg AV meanP.41 mmHg RAP: 5.00 mmHg RVSP: 30.43 mmHg FINDINGS -------- Sinus rhythm. This was a technically adequate study. The left ventricular size is normal. There is moderate concentric left ventricular hypertrophy. O verall left ventricular systolic function is mildly impaired with, an EF between 45 - 50 %. Basal i nferior LV wall motion is hypokinetic. Mid inferior LV wall motion is hypokinetic. The right ventricle is normal in size. Normal LA size by volume 22+/-6 ml/m2. The right atrium is normal in size. 4 ml of Lumason was utilized for enhancement of images. There is mild aortic valve sclerosis. There is mild aortic stenosis present. Peak/mean gradient a cross the Aortic Valve is 14.26mmHg / 7.41mmHg. Mild mitral annular calcification present. Mild tricuspid regurgitation present. Right ventricular systolic pressure is normal at < 35 mmHg. Trace/mild (physiologic) pulmonic regurgitation. The aortic root size is normal. Normal inferior vena cava with normal inspiratory collapse consistent with estimated right atrial pre ssure of 5 mmHg. There is a trivial pericardial effusion present. CONCLUSIONS -------- 1. Sinus rhythm. 2. This was a technically adequate study. 3. The left ventricular size is normal. 4. Overall left ventricular systolic function is mildly impaired with, an EF between 45 - 50 %. 5. Basal inferior LV wall motion is hypokinetic. 6. Mid inferior LV wall motion is hypokinetic. 7. The right ventricle is normal in size. 8. Normal LA size by volume 22+/-6 ml/m2. 9. The right atrium is normal in size. 10. 4 ml of Lumason was utilized for enhancement of images. 11. There is mild aortic valve sclerosis. 12. There is mild aortic stenosis present. 13. Peak/mean gradient across the Aortic Valve is 14.26mmHg / 7.41mmHg. 14. Mild mitral annular calcification present. 15. Mild tricuspid regurgitation present. 16. Right ventricular systolic pressure is normal at < 35 mmHg. 17. Trace/mild (physiologic) pulmonic regurgitation. 18. The aortic root size is normal. 19. Normal inferior vena cava with normal inspiratory collapse consistent with estimated right atrial pressure of 5 mmHg. 20. There is a trivial pericardial effusion present. [employer] SUPERVISOR: Nighat Damico RDCS
[2018-07-20 12:14] LABS: Glucose,Whole Blood 106 mg/dL (75-99)
[2018-07-20 12:16] LABS: Calcium 8.3 mg/dL (8.4-10.2); Potassium 4.4 mmol/L (3.5-5.1)
[2018-07-20 13:59] LABS: Hemoglobin A1C 9.4 % (4.0-6.0)
--- NOTE | 2018-07-20 15:34 | P.PN ---
Subjective Mrs. Devine is seen and examined resting comfortably in bed in no acute distress. Past medical history significant for coronary artery disease status post bypass grafting 2010 SVG today, SVG to OM, SVG to RCA and RIVERA to LAD, hypertension, dyslipidemia, diabetes mellitus and chronic kidney disease status post kidney transplant. Echo obtained revealed mildly impaired left ventricular systolic function with ejection fraction 45-50%, mild aortic valve stenosis with a mean gradient across the valve 7 mmHg, mild TR and mid inferior, basal inferior wall motion hypokinesia.laboratory data reviewed, troponin0.029, 0.058 and 0.038. sodium 136, potassium 4.4, creatinine 1.09. Blood pressure 162/72 heart rate 89. She has been seen in consultation by nephrology as well. She continues to deny chest pain, shortness of breath, dizziness or palpitations. Objective - Vital Signs Vital signs: Vital Signs Temp 99.7 F H 07/20/18 07:25 Pulse 89 07/20/18 07:25 Resp 16 07/20/18 07:25 BP 162/72 07/20/18 07:25 Pulse Ox 93 L 07/20/18 07:25 Intake & Output 07/19/18 07/20/18 07/20/18 18:59 06:59 18:59 Intake Total 440 Balance 440 Intake: Oral 440 Other: Voiding Method Toilet Toilet # Voids 2 3 # Bowel Movements 0 - Exam GENERAL: Well-appearing, well-nourished and in no acute distress. Obese. NECK: Supple without JVD or thyromegaly. LUNGS: Breath sounds clear to auscultation bilaterally. Respiration equal and unlabored. No wheezes, rales or rhonchi. HEART: Regular rate and rhythm withsystolic ejection murmurat the base,no rubs or gallops. S1 and S2 heard. EXTREMITIES: Normal range of motion, no edema. No clubbing or cyanosis. Peripheral pulses intact. - Labs CBC & Chem 7: 07/19/18 09:05 07/20/18 11:27 Labs: Abnormal Lab Results - Last 24 Hours (Table) 07/19/18 07/19/18 07/19/18 Range/Units 09:05 15:41 15:41 Sodium (137-145) mmol/L Carbon Dioxide (22-30) mmol/L BUN (7-17) mg/dL Creatinine (0.52-1.04) mg/dL Glucose (74-99) mg/dL POC Glucose (mg/dL) (75-99) mg/dL Hemoglobin A1c 9.4 H (4.0-6.0) % Calcium (8.4-10.2) mg/dL Troponin I 0.058 H* (0.000-0.034) ng/mL HDL Cholesterol 23 L (40-60) mg/dL 07/19/18 07/19/18 07/20/18 Range/Units 17:46 20:24 06:42 Sodium (137-145) mmol/L Carbon Dioxide (22-30) mmol/L BUN (7-17) mg/dL Creatinine (0.52-1.04) mg/dL Glucose (74-99) mg/dL POC Glucose (mg/dL) 135 H 203 H (75-99) mg/dL Hemoglobin A1c (4.0-6.0) % Calcium (8.4-10.2) mg/dL Troponin I 0.038 H* (0.000-0.034) ng/mL HDL Cholesterol (40-60) mg/dL 07/20/18 07/20/18 Range/Units 11:27 12:10 Sodium 136 L (137-145) mmol/L Carbon Dioxide 21 L (22-30) mmol/L BUN 25 H (7-17) mg/dL Creatinine 1.09 H (0.52-1.04) mg/dL Glucose 114 H (74-99) mg/dL POC Glucose (mg/dL) 106 H (75-99) mg/dL Hemoglobin A1c (4.0-6.0) % Calcium 8.3 L (8.4-10.2) mg/dL Troponin I (0.000-0.034) ng/mL HDL Cholesterol (40-60) mg/dL Microbiology - Last 24 Hours (Table) 07/18/18 12:46 Blood Culture - Preliminary Blood No Growth after 48 hours Assessment and Plan Assessment: ASSESSMENT Acute urinary tract infection Fever Mild troponin elevation, not indicative of an acute coronary event. Type II event with acute kidney injury. History of coronary artery disease status post bypass grafting. Cath 2016 revealed occluded grafts medical therapy recommended at that time. Hypertension Dyslipidemia Diabetes mellitus Chronic kidney disease, GFR 43. PLAN Decrease aspirin to 81 mg daily and add lopressor 25 mg BID. Continue imdur. Follow up with Dr. Girard in 2-3 weeks. We will follow as needed, please call with questions. Nurse Practitioner note has been reviewed, I agree with a documented findings and plan of care. Patient was seen and examined.
[2018-07-20 17:33] LABS: Glucose,Whole Blood 114 mg/dL (75-99)
--- NOTE | 2018-07-20 20:15 | PN ---
PROGRESS NOTE The patient is seen for followup for acute kidney injury. She was admitted with weakness, found to have a urinary tract infection. She had a fever after coming into the hospital. Currently, patient states she is feeling well. She is afebrile. Renal function has improved with creatinine down to 1.09 from 1.4 on initial admission. PHYSICAL EXAMINATION: Blood pressure this morning 162/72, heart rate 89 per minute. She is afebrile. Examination of the heart: S1, S2. Examination of the lungs: Bilateral breath sounds are heard. Abdomen is soft, nontender. Examination lower extremities shows no significant edema and renal allograft is nontender. 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 LABS: Show sodium 136, potassium 4.4, chloride 106, BUN 25, serum creatinine 1.09. ASSESSMENT: 1. Acute kidney injury, prerenal and secondary to urine tract infection, currently improved. The patient is encouraged to continue to maintain good oral intake. We can discontinue the IV fluids tomorrow and patient could be discharged from nephrology standpoint. 2. Urinary tract infection. We did not get an initial urine culture as only a UA was done. Clinically patient is improved. We will repeat another UA as outpatient. 3. Borderline elevated troponins. The patient is being seen by Cardiology. She will follow up with Cardiology as outpatient. 4. History of coronary artery disease, status post cardiac catheterization and coronary stenting previously. 5. Cardiomyopathy, ejection fraction of about 45-50 percent. 6. Status post a living unrelated renal transplant. Continue current immunosuppressive medications. PLAN: The patient can be discharged tomorrow with follow up as outpatient. We will repeat another UA and check a Prograf level as outpatient. MMODL / IJN: [id number] /
[2018-07-20] MEDS: INSULIN DETEMIR 100 UNIT/ML 10 ML VIAL SQ SCH (21:00)
[2018-07-20] MEDS: LATANOPROST 0.005% OPHTH DROPS 2.5 ML BTL BOTH EYES SCH (21:01)
[2018-07-20 21:09] LABS: Glucose,Whole Blood 148 mg/dL (75-99)
--- NOTE | 2018-07-20 22:04 | PN ---
PROGRESS NOTE DATE OF SERVICE: 07/20/2018. PRESENTING COMPLAINT: Tired. INTERVAL HISTORY: This patient was admitted with acute urinary tract infection with cystitis and sepsis. Started to feel better. Tolerating a diet. Had a low-grade fever appetite is feeling better. Sitting up in bed. REVIEW OF SYSTEMS: Done for constitutional, cardiovascular, GI, pulmonary; relevant findings as above. CURRENT MEDICATIONS: Reviewed that include IV ceftriaxone. EXAMINATION: VITAL SIGNS: T-max was 100, pulse 72, respiratory rate 16, blood pressure 130/60, pulse ox 96% on room air. GENERAL APPEARANCE: Sitting up awake. EYES: Pupils are equal, conjunctivae normal. HEENT: External appearance of nose and ears normal. Oral cavity normal. NECK: JVD not raised. Mass not palpable. RESPIRATORY: Effort, lungs decreased breath sounds. CARDIOVASCULAR: 1st and 2nd sounds normal. No edema. ABDOMEN: Soft, nontender. Liver and spleen not palpable. PSYCHIATRY: Awake, answering questions. INVESTIGATIONS: Potassium 4.4, BUN 25, creatinine 1.099. 2D echocardiogram. Ejection fraction of 45- 50 percent. Also hypokinetic. ASSESSMENT: 1. Acute urinary tract infection probably from cystitis causing sepsis present on admission, started to improve. 2. Coronary artery disease with prior history of coronary bypass. 3. Diabetes mellitus type 2, chronically on insulin. 4. Hyperlipidemia. 5. Essential hypertension. 6. History of renal transplant 2008. 7. Chronic gait dysfunction uses a walker. 8. Acute renal failure likely prerenal from sepsis. 9. The patient has no chronic kidney disease. It appears to be all prerenal from infection. 10.Per Cardiology, aspirin was decreased to 81 mg and Lopressor was added. MMODL / IJN: [id number] /
[2018-07-21] MEDS: SODIUM CHLORIDE 0.9% 1,000 ML IV SCH (01:47)
[2018-07-21 07:19] LABS: Glucose,Whole Blood 75 mg/dL (75-99)
[2018-07-21 07:44] VITALS: RESP 16
[2018-07-21] MEDS: INSULIN ASPART 100 UNIT/ML 1 ML 10 ML VIAL SQ SCH ×2 (08:00→13:07)
[2018-07-21] MEDS: MYCOPHENOLATE SODIUM DR 180 MG TABLET.DR PO SCH (09:00)
[2018-07-21] MEDS: TACROLIMUS 1 MG CAP PO SCH (09:01)
[2018-07-21] MEDS: ASPIRIN 81 MG PO SCH (09:01)
[2018-07-21] MEDS: METOPROLOL TARTRATE 25 MG TAB PO SCH (09:01)
[2018-07-21] MEDS: MAGNESIUM OXIDE 400 MG TAB PO SCH (09:02)
[2018-07-21] MEDS: ISOSORBIDE MONONITRATE ER 30 MG TAB.ER.24H PO SCH (09:02)
[2018-07-21 10:03] LABS: Calcium 8.5 mg/dL (8.4-10.2); Magnesium 1.4 mg/dL (1.6-2.3); Potassium 4.7 mmol/L (3.5-5.1)
[2018-07-21 10:54] VITALS: BMI 36.6
[2018-07-21 12:58] LABS: Glucose,Whole Blood 110 mg/dL (75-99)
[2018-07-21 15:58] VITALS: BP 114/56; PULSE 68; TEMP 98.1
--- NOTE | 2018-07-21 21:50 | PN ---
PROGRESS NOTE The patient is seen for followup for acute kidney injury and transplant kidney. The patient was admitted with urinary tract infection. She has been hydrated. Her serum creatinine was down to 1.1 and 1.0 from 1.4 mg/dL. She states she feels well and wants to go home today. PHYSICAL EXAMINATION: Blood pressure was 152/70, heart rate 70 per minute. She is afebrile. Examination of the heart: S1, S2. Examination of the lungs: Bilateral breath sounds are heard. Abdomen is soft, nontender. Examination lower extremities shows no evidence of edema. STORE MGR exam is grossly intact. LABS: Sodium 140, potassium 4.7, BUN 23, serum creatinine 1.12, magnesium 1.4. ASSESSMENT: 1. Acute kidney injury, prerenal and secondary to urinary tract infection, currently improved, status post IV fluids. 2. Status post living unrelated renal transplant in 2008, currently with renal function at baseline. 3. Urinary tract infection. Urine culture was unfortunately not sent. Patient is maintained on antibiotics. She will continue with antibiotics post discharge. She was on Rocephin. 4. Volume depletion, status post IV fluids. 5. Type 2 diabetes, maintained on insulin. PLAN: The patient can be discharged from nephrology standpoint. She needs to follow up as outpatient. MMODL / IJN: [id number] /
== END 2018-07-21 17:04 | disposition home or self-care (01) | DRG 872 ==
LOC: EC 10:23 → 4MS4W 14:14 → OBSVTOIN 07-20 11:18
PROVIDERS: ADMIT Hospitalist; ATTEND Hospitalist
DX: A41.9 Sepsis, unspecified organism (principal); Z94.0 Kidney transplant status; I25.810 Atherosclerosis of coronary artery bypass graft(s) without angina pectoris; I42.9 Cardiomyopathy, unspecified; N17.9 Acute kidney failure, unspecified; E11.22 Type 2 diabetes mellitus with diabetic chronic kidney disease; E78.5 Hyperlipidemia, unspecified; E86.9 Volume depletion, unspecified; H40.9 Unspecified glaucoma; H54.7 Unspecified visual loss; I12.9 Hypertensive chronic kidney disease with stage 1 through stage 4 chronic kidney disease, or unspecified chronic kidney disease; N18.3 Chronic kidney disease, stage 3 (moderate); Z87.891 Personal history of nicotine dependence; I25.2 Old myocardial infarction; I08.2 Rheumatic disorders of both aortic and tricuspid valves; M89.9 Disorder of bone, unspecified; R74.8 Abnormal levels of other serum enzymes; N30.90 Cystitis, unspecified without hematuria; Z79.4 Long term (current) use of insulin; Z79.82 Long term (current) use of aspirin; Z80.0 Family history of malignant neoplasm of digestive organs; Z80.1 Family history of malignant neoplasm of trachea, bronchus and lung; Z82.49 Family history of ischemic heart disease and other diseases of the circulatory system; Z87.440 Personal history of urinary (tract) infections; Z87.442 Personal history of urinary calculi; Z90.710 Acquired absence of both cervix and uterus; Z95.5 Presence of coronary angioplasty implant and graft; Z95.1 Presence of aortocoronary bypass graft; Z88.8 Allergy status to other drugs, medicaments and biological substances; Z88.6 Allergy status to analgesic agent; Z91.040 Latex allergy status; R26.9 Unspecified abnormalities of gait and mobility
CPT/HCPCS: 36415; 71046; 80048; 80053; 80061; 81001; 82550; 82553; 83036; 83605; 83735; 84484; 85025; 85610; 85730; 87040; 93005; 93306; 96361; 96365; 99285

== ENCOUNTER → 2019-01-03 | Outpatient (CLI) | payer MEDICARE, BC ==
[2019-01-03 12:05] LABS: Basophils % (A) 1 %; Eosinophils # (A) 0.4 k/uL (0-0.7); Eosinophils % (A) 11 %; HCT 40.6 % (34.0-46.0); HGB 12.8 gm/dL (11.4-16.0); Lymphocytes % (A) 29 %; MCH 27.3 pg (25.0-35.0); MCHC 31.5 g/dL (31.0-37.0); MCV 86.8 fL (80.0-100.0); Mean Platelet Volume 7.7; Monocytes # (A) 0.2 k/uL (0-1.0); Monocytes % (A) 4 %; Neutrophils # (A) 1.9 k/uL (1.3-7.7); Neutrophils % (A) 53 %; Platelet Count 209 k/uL (150-450); RBC 4.67 m/uL (3.80-5.40); RDW 13.6 % (11.5-15.5); WBC 3.5 k/uL (3.8-10.6)
[2019-01-03 12:35] LABS: Appearance,Urine Clear (Clear); Bilirubin,Urine Negative (Negative); Blood,Urine Negative (Negative); Color,Urine Yellow; Glucose,Urine (UA) Negative (Negative); Ketones,Urine Negative (Negative); Leukocyte Esterase,Urine Negative (Negative); Nitrite,Urine Negative (Negative); Protein,Urine Negative (Negative); Specific Gravity,Urine 1.013 (1.001-1.035); Urobilinogen,Urine <2.0 mg/dL (<2.0)
[2019-01-03 16:29] LABS: Iron Saturation 23.22 (12.00-45.00)
[2019-01-03 16:38] LABS: Vitamin D 25 Hydroxy 37.5 ng/mL (30.0-100.0)
[2019-01-03 16:39] LABS: Anion Gap 5.6 mmol/L (4.00-12.00); Calcium 8.9 mg/dL (8.7-10.3); Carbon Dioxide 27.4 mmol/L (21.6-31.8); Magnesium 1.8 mg/dL (1.5-2.4); Uric Acid 6.3 mg/dL (2.9-7.7)
== END ==
LOC: LABWHC1 10:41
PROVIDERS: ATTEND Nurse Practitioner Family
DX: N39.0 Urinary tract infection, site not specified (principal); D63.1 Anemia in chronic kidney disease; N18.3 Chronic kidney disease, stage 3 (moderate); D55.9 Anemia due to enzyme disorder, unspecified; N25.81 Secondary hyperparathyroidism of renal origin; E83.39 Other disorders of phosphorus metabolism; M10.9 Gout, unspecified; Z94.0 Kidney transplant status
CPT/HCPCS: 36415; 80048; 80197; 81003; 82306; 82728; 83540; 83550; 83735; 83970; 84550; 85025; 87086

== ENCOUNTER → 2019-08-18 | Outpatient (CLI) | payer MEDICARE ==
[2019-08-18 09:53] LABS: Appearance,Urine Turbid (Clear); Bacteria,Urine Moderate /hpf; Bilirubin,Urine Negative (Negative); Blood,Urine Trace (Negative); Color,Urine Yellow; Glucose,Urine (UA) 4+ (Negative); Hyaline Casts,Urine 12 /lpf (0-2); Ketones,Urine Negative (Negative); Leukocyte Esterase,Urine Large (Negative); Mucus,Urine Few /hpf; Nitrite,Urine Negative (Negative); PH, Urine 5.5 (5.0-8.0); Protein,Urine 1+ (Negative); RBC,Urine 26 /hpf (0-5); Squamous Epithelial Cell,Urine 20 /hpf (0-4); Urobilinogen,Urine <2.0 mg/dL (<2.0); WBC,Urine 164 /hpf (0-5)
[2019-08-18 10:23] LABS: Basophils # (A) 0.1 k/uL (0-0.2); Basophils % (A) 1 %; Eosinophils # (A) 0.4 k/uL (0-0.7); Eosinophils % (A) 8 %; HCT 33.3 % (34.0-46.0); HGB 10.2 gm/dL (11.4-16.0); Hypochromasia Marked; Lymphocytes % (A) 20 %; MCH 24.7 pg (25.0-35.0); MCHC 30.5 g/dL (31.0-37.0); MCV 80.9 fL (80.0-100.0); Mean Platelet Volume 6.3; Monocytes # (A) 0.3 k/uL (0-1.0); Monocytes % (A) 6 %; Neutrophils % (A) 61 %; Platelet Count 346 k/uL (150-450); RBC 4.12 m/uL (3.80-5.40)
[2019-08-18 16:16] LABS: % Iron Saturation 4.86 (12.00-45.00); African American GFR (CKD) 37.4 (60.0-200.0); Anion Gap 4.9 mmol/L (4.00-12.00); BUN/Creat Ratio 16.25 Ratio (12.00-20.00); Calcium 8.9 mg/dL (8.7-10.3); Carbon Dioxide 26.1 mmol/L (21.6-31.8); Ferritin 13.1 ng/mL (10.0-291.0); Magnesium 1.5 mg/dL (1.5-2.4); Phosphorus 3.2 mg/dL (2.4-5.1); Potassium 4.7 mmol/L (3.5-5.5)
== END | disposition home or self-care (01) ==
LOC: LABWHC1 08:48
PROVIDERS: ATTEND Nurse Practitioner Family
DX: N39.0 Urinary tract infection, site not specified (principal); N18.3 Chronic kidney disease, stage 3 (moderate); D63.1 Anemia in chronic kidney disease; E55.9 Vitamin D deficiency, unspecified; M10.9 Gout, unspecified; E21.3 Hyperparathyroidism, unspecified; Z94.0 Kidney transplant status
CPT/HCPCS: 36415; 80048; 80197; 81001; 82306; 82728; 83540; 83550; 83735; 83970; 84100; 84550; 85025

== ENCOUNTER 2019-11-27 19:26 | Inpatient (IN) | payer BC, MEDICARE ==
[2019-11-27] MEDS: SODIUM CHLORIDE 0.9% 500 ML 500 ML IV SCH ×4 (19:50→22:14)
[2019-11-27] MEDS ORDERED: ACETAMINOPHEN TAB 500 MG TAB PO STA (19:58)
[2019-11-27 20:13] LABS: Anisocytosis Slight; Basophils # (A) 0.1 k/uL (0-0.2); Basophils % (A) 0 %; Eosinophils # (A) 0.1 k/uL (0-0.7); Eosinophils % (A) 1 %; HCT 42.5 % (34.0-46.0); HGB 13.6 gm/dL (11.4-16.0); Lymphocytes % (A) 7 %; MCH 26.1 pg (25.0-35.0); MCHC 31.9 g/dL (31.0-37.0); MCV 81.8 fL (80.0-100.0); Mean Platelet Volume 8.9; Microcytosis Slight; Monocytes # (A) 0.7 k/uL (0-1.0); Monocytes % (A) 5 %; Neutrophils # (A) 11.7 k/uL (1.3-7.7); Neutrophils % (A) 85 %; Platelet Count 179 k/uL (150-450); RBC 5.19 m/uL (3.80-5.40); RDW 17.1 % (11.5-15.5); WBC 13.7 k/uL (3.8-10.6)
[2019-11-27 20:22] LABS: Bacteria,Urine Many /hpf; RBC,Urine 16 /hpf (0-5); WBC,Urine >182 /hpf (0-5)
[2019-11-27 20:25] LABS: Albumin 3.5 g/dL (3.5-5.0); Calcium 8.5 mg/dL (8.4-10.2); Potassium 4.3 mmol/L (3.5-5.1); Total Protein 7.6 g/dL (6.3-8.2)
[2019-11-27 20:32] LABS: Appearance,Urine Cloudy (Clear); Color,Urine Amber
[2019-11-27 20:33] LABS: Protein,Urine 2+ (Negative); Specific Gravity,Urine 1.015 (1.001-1.035)
[2019-11-27 20:34] LABS: Bilirubin,Urine Negative (Negative); Blood,Urine Moderate (Negative); Glucose,Urine (UA) 4+ (Negative); Ketones,Urine 1+ (Negative); Leukocyte Esterase,Urine Large (Negative); Nitrite,Urine Negative (Negative); Urobilinogen,Urine <2.0 mg/dL (<2.0)
[2019-11-27 20:37] LABS: INR 1.1 (<1.2); Prothrombin Time 11.1 sec (9.0-12.0)
[2019-11-27 20:39] LABS: Partial Thromboplastin Time 18.4 sec (22.0-30.0)
[2019-11-27] MEDS ORDERED: INSULIN ASPART (NovoLOG) 100 UNIT/ML VIAL SQ STA (20:41)
--- NOTE | 2019-11-27 20:45 | XR ---
EXAMINATION TYPE: XR chest 2V DATE OF EXAM: 11/27/2019 COMPARISON: 07/18/2018 HISTORY: Fever TECHNIQUE: FINDINGS: There is no heart failure nor confluent pneumonic infiltrate. Thoracic aorta is atheromatou s. There are sternal wires. There are chest leads. Bony thorax is intact. IMPRESSION: No active cardiopulmonary disease. Heart appears increased slightly compared to old exam.
--- NOTE | 2019-11-27 21:02 | ED ---
General Adult HPI - General Chief complaint: Altered Mental Status Stated complaint: diabetic issue Time Seen by Provider: 11/27/19 19:50 Source: patient Mode of arrival: ambulatory Limitations: no limitations - History of Present Illness Initial comments: 69-year-old female patient with past medical history significant for kidney transplant and frequent urinary tract infections presents to the emergency department today for evaluation of weakness. Patient had 3 falls at home today. Denies having any injuries but states she just felt too weak to hold herself up. Patient denies any pain to her extremities, chest, abdomen. Denies any hematuria, dysuria, urinary frequency, urinary urgency. Patient states she is usually incontinent of urine. Upon arrival patient was febrile at 102.7F. Urine is odorous. She denies any nausea or vomiting. Denies constipation or diarrhea. Patient is currently taking antirejection meds. Patient denies any recent rash, shortness breath, chest pain, back pain, numbness, tingling, dizziness, weakness, headache, visual changes, or any other complaints. - Related Data Home Medications Medication Instructions Recorded Confirmed Cholecalciferol [Vitamin D3 (25 2,000 unit PO DAILY 03/14/14 10/06/18 Mcg = 1000 Iu)] Magnesium Oxide [Mag-Ox] 500 mg PO BID 03/14/14 10/06/[address] [Myfortic] 360 mg PO BID 03/14/14 10/06/18 INSULIN LISPRO (HumaLOG) [humaLOG] See Protocol SQ ACHS 03/21/16 10/06/18 Cranberry Fruit Extract [Cranberry] 500 mg PO DAILY 07/28/16 10/06/18 Tacrolimus [Prograf] 2 mg PO BID 09/13/17 10/06/18 Insulin Glargine,Hum.rec.anlog 40 unit SQ HS 11/26/17 10/06/18 [Lantus Solostar] Isosorbide Mononitrate ER [Imdur] 30 mg PO DAILY 11/26/17 10/06/18 Latanoprost Ophth [Xalatan 0.005%] 1 drops BOTH EYES HS 04/06/18 10/06/18 Previous Rx's Medication Instructions Recorded Nitroglycerin Sl Tabs [Nitrostat] 0.4 mg SUBLINGUAL Q5M PRN #20 tab 12/24/15 Aspirin 81 mg PO DAILY chew 07/21/18 Cefuroxime Axetil [Ceftin] 500 mg PO BID #10 tab 07/21/18 Metoprolol Tartrate [Lopressor] 25 mg PO BID #60 tab 07/21/18 Allergies Allergy/AdvReac Type Severity Reaction Status Date / Time adhesive tape Allergy tears skin Verified 10/06/18 08:47 latex Allergy Unknown Verified 10/06/18 08:47 metoclopramide HCl Allergy Unknown Verified 10/06/18 08:48 [From Reglan] grapefruit [Grapefruit] AdvReac reaction Verified 10/06/18 08:47 with simvastatin ibuprofen AdvReac kidney Verified 10/06/18 08:47 failure/transplant ropinirole [From Requip] AdvReac LEG CRAMPS Verified 10/06/18 08:47 nupur Allergy Rash/Hives Uncoded 05/26/18 09:53 Review of Systems ROS Statement: Those systems with pertinent positive or pertinent negative responses have been documented in the HPI. ROS Other: All systems not noted in ROS Statement are negative. Past Medical History Past Medical History: Coronary Artery Disease (CAD), Diabetes Mellitus, Eye Disorder, Hyperlipidemia, Hypertension, Myocardial Infarction ([place]), Renal Disease, Skin Disorder Additional Past Medical History / Comment(s): R eye glaucoma, retinal bleed and little vision, renal failure Stage 3 - R renal transplant in 2008, UTIs with sepsis, Last Myocardial Infarction Date:: 2009 History of Any Multi-Drug Resistant Organisms: None Reported Past Surgical History: Appendectomy, Cholecystectomy, Coronary Bypass/CABG, Heart Catheterization, Hernia Repair, Hysterectomy Additional Past Surgical History / Comment(s): 2009 right kidney transplant, 4 vessel CABG in 2009, umbilical hernia repair, colonoscopies, silvia cataract marie chari, R eye laser surgeries. Past Anesthesia/Blood Transfusion Reactions: No Reported Reaction Additional Past Anesthesia/Blood Transfusion Reaction / Comment(s): unknown Past Psychological History: No Psychological Hx Reported Smoking Status: Former smoker Past Alcohol Use History: None Reported Past Drug Use History: None Reported - Past Family History Brother(s) Family Medical History: Cancer Mother Family Medical History: Coronary Artery Disease (CAD) Additional Family Medical History / Comment(s): mom had heart disease Father Family Medical History: Cancer Additional Family Medical History / Comment(s): lung and pancreatic cancer General Exam Limitations: no limitations General appearance: alert, in no apparent distress, other (Physical well- developed, well-nourished adult female patient who appears drowsy. Vital signs upon presentation are temperature 102.2F, pulse 97, respirations 20, blood pressure 124/84, pulse ox 97% on room air.) Eye exam: Present: normal appearance, PERRL, EOMI. Absent: scleral icterus, conjunctival injection, periorbital swelling ENT exam: Present: normal exam, normal oropharynx, mucous membranes moist Respiratory exam: Present: normal lung sounds bilaterally. Absent: respiratory distress, wheezes, rales, rhonchi, stridor Cardiovascular Exam: Present: regular rate, normal rhythm, normal heart sounds. Absent: systolic murmur, diastolic murmur, rubs, gallop, clicks GI/Abdominal exam: Present: soft, normal bowel sounds. Absent: distended, tenderness, guarding, rebound, rigid Neurological exam: Present: alert, oriented X3, CN II-XII intact Psychiatric exam: Present: normal affect, normal mood Skin exam: Present: warm, dry, intact, normal color. Absent: rash Course Vital Signs 11/27/19 19:28 Temperature 102.2 F H Pulse Rate 97 Respiratory 20 Rate Blood Pressure 124/84 O2 Sat by Pulse 97 Oximetry EKG Findings - EKG Comments: EKG Findings:: EKG obtained in 1940 shows normal sinus rhythm with an incomplete left bundle branch block. Ventricular rate is 99, CO interval 154, QRS duration 110, QT 350, QTC 449. Medical Decision Making - Medical Decision Making 69-year-old female patient presents to the emergency department today for evaluation of generalized weakness and falls. Physical examination did reveal soft nontender abdomen. No injuries were noted. Labs reviewed and did reveal elevated white blood cell count at 13.7, neutrophil count 11.7, BUN 39, creatinine 1.94, blood glucose is 333. Lactic acid is 1.5. Patient has had urinary tract infection the past, she did have a positive E. coli culture in 2018. We'll start Rocephin at this time pending culture from today. We did give Tylenol for fever management. She was given 2 L of normal saline. She'll be admitted to the hospital for further evaluation. - Lab Data Result diagrams: 11/27/19 20:00 11/27/19 20:00 Lab Results 11/27/19 11/27/19 11/27/19 Range/Units 10:15 20:00 20:00 WBC 13.7 H (3.8-10.6) k/uL RBC 5.19 (3.80-5.40) m/uL Hgb 13.6 (11.4-16.0) gm/dL Hct 42.5 (34.0-46.0) % MCV 81.8 (80.0-100.0) fL MCH 26.1 (25.0-35.0) pg MCHC 31.9 (31.0-37.0) g/dL RDW 17.1 H (11.5-15.5) % Plt Count 179 (150-450) k/uL Neutrophils % 85 % Lymphocytes % 7 % Monocytes % 5 % Eosinophils % 1 % Basophils % 0 % Neutrophils # 11.7 H (1.3-7.7) k/uL Lymphocytes # 1.0 (1.0-4.8) k/uL Monocytes # 0.7 (0-1.0) k/uL Eosinophils # 0.1 (0-0.7) k/uL Basophils # 0.1 (0-0.2) k/uL Anisocytosis Slight Microcytosis Slight PT (9.0-12.0) sec INR (<1.2) APTT (22.0-30.0) sec Sodium 132 L (137-145) mmol/L Potassium 4.3 (3.5-5.1) mmol/L Chloride 98 (98-107) mmol/L Carbon Dioxide 20 L (22-30) mmol/L Anion Gap 14 mmol/L BUN 39 H (7-17) mg/dL Creatinine 1.94 H (0.52-1.04) mg/dL Est GFR (CKD-EPI)AfAm 29 (>60 ml/min/1.73 sqM) Est GFR (CKD-EPI)NonAf 26 (>60 ml/min/1.73 sqM) Glucose 333 H (74-99) mg/dL Plasma Lactic Acid Silvino (0.7-2.0) mmol/L Calcium 8.5 (8.4-10.2) mg/dL Total Bilirubin 1.0 (0.2-1.3) mg/dL AST 25 (14-36) U/L ALT 11 (4-34) U/L Alkaline Phosphatase 94 (38-126) U/L Total Protein 7.6 (6.3-8.2) g/dL Albumin 3.5 (3.5-5.0) g/dL Urine Color Urine Appearance (Clear) Urine pH (5.0-8.0) Ur Specific [place] (1.001-1.035) Urine Protein (Negative) Urine Glucose (UA) (Negative) Urine Ketones (Negative) Urine Blood (Negative) Urine Nitrite (Negative) Urine Bilirubin (Negative) Urine Urobilinogen (<2.0) mg/dL Ur Leukocyte Esterase (Negative) Urine RBC (0-5) /hpf Urine WBC (0-5) /hpf Urine WBC Clumps (None) /hpf Urine Bacteria (None) /hpf Influenza Type A RNA Not Detected (Not Detectd) Influenza Type B (PCR) Not Detected (Not Detectd) 11/27/19 11/27/19 11/27/19 Range/Units 20:00 20:00 20:00 WBC (3.8-10.6) k/uL RBC (3.80-5.40) m/uL Hgb (11.4-16.0) gm/dL Hct (34.0-46.0) % MCV (80.0-100.0) fL MCH (25.0-35.0) pg MCHC (31.0-37.0) g/dL RDW (11.5-15.5) % Plt Count (150-450) k/uL Neutrophils % % Lymphocytes % % Monocytes % % Eosinophils % % Basophils % % Neutrophils # (1.3-7.7) k/uL Lymphocytes # (1.0-4.8) k/uL Monocytes # (0-1.0) k/uL Eosinophils # (0-0.7) k/uL Basophils # (0-0.2) k/uL Anisocytosis Microcytosis PT 11.1 (9.0-12.0) sec INR 1.1 (<1.2) APTT 18.4 L (22.0-30.0) sec Sodium (137-145) mmol/L Potassium (3.5-5.1) mmol/L Chloride (98-107) mmol/L Carbon Dioxide (22-30) mmol/L Anion Gap mmol/L BUN (7-17) mg/dL Creatinine (0.52-1.04) mg/dL Est GFR (CKD-EPI)AfAm (>60 ml/min/1.73 sqM) Est GFR (CKD-EPI)NonAf (>60 ml/min/1.73 sqM) Glucose (74-99) mg/dL Plasma Lactic Acid Silvino 1.5 (0.7-2.0) mmol/L Calcium (8.4-10.2) mg/dL Total Bilirubin (0.2-1.3) mg/dL AST (14-36) U/L ALT (4-34) U/L Alkaline Phosphatase (38-126) U/L Total Protein (6.3-8.2) g/dL Albumin (3.5-5.0) g/dL Urine Color Radha Urine Appearance Cloudy H (Clear) Urine pH 6.0 (5.0-8.0) Ur Specific [place] 1.015 (1.001-1.035) Urine Protein 2+ H (Negative) Urine Glucose (UA) 4+ H (Negative) Urine Ketones 1+ H (Negative) Urine Blood Moderate (Negative) Urine Nitrite Negative (Negative) Urine Bilirubin Negative (Negative) Urine Urobilinogen <2.0 (<2.0) mg/dL Ur Leukocyte Esterase Large (Negative) Urine RBC 16 H (0-5) /hpf Urine WBC >182 H (0-5) /hpf Urine WBC Clumps Many H (None) /hpf Urine Bacteria Many H (None) /hpf Influenza Type A RNA (Not Detectd) Influenza Type B (PCR) (Not Detectd) - Radiology Data Radiology results: report reviewed, image reviewed Two-view x-ray of the chest is obtained. Report was reviewed in its entirety. Impression by Dr. Herring shows no active cardiopulmonary disease. Heart appears slightly increased compared to old exam. Disposition Clinical Impression: Urinary tract infection, Sepsis Disposition: ADMITTED IP TO THIS HOSP Condition: Serious Referrals: Joel Wong DO [Primary Care Provider] - 1-2 days Decision to Admit Reason: Admit from EC Decision Date: 11/27/19 Decision Time: 21:02
[2019-11-27] MEDS ORDERED: NALOXONE 0.4 MG/ML 1 ML VIAL IV PRN (21:26)
[2019-11-27] MEDS ORDERED: ONDANSETRON 4 MG/2 ML VIAL IVP PRN (21:26)
[2019-11-27] MEDS: SODIUM CHLORIDE 0.9% 1,000 ML IV SCH (22:15)
[2019-11-28] MEDS: ACETAMINOPHEN TAB 325 MG TAB PO PRN ×2 (04:59→19:13)
[2019-11-28 05:32] LABS: Glucose,Whole Blood 200 mg/dL (75-99)
[2019-11-28] MEDS ORDERED: ACETAMINOPHEN SUPPOSITORY 650 MG SUPP RECTAL PRN (05:33)
[2019-11-28] MEDS ORDERED: ACETAMINOPHEN IV (For NPO) 1,000 MG in EMPTY BAG 1 BAG IVPB ONE (06:00)
[2019-11-28 07:04] LABS: Glucose,Whole Blood 225 mg/dL (75-99)
[2019-11-28] MEDS: INSULIN ASPART (NovoLOG) 100 UNIT/ML VIAL SQ SCH ×4 (07:12→22:12)
[2019-11-28 07:39] LABS: Anisocytosis Slight; Basophils % (A) 0 %; Eosinophils % (A) 0 %; HCT 38.4 % (34.0-46.0); HGB 12.4 gm/dL (11.4-16.0); Lymphocytes # (A) 0.6 k/uL (1.0-4.8); Lymphocytes % (A) 5 %; MCH 26.3 pg (25.0-35.0); MCHC 32.4 g/dL (31.0-37.0); MCV 81.2 fL (80.0-100.0); Mean Platelet Volume 9.2; Microcytosis Slight; Monocytes # (A) 0.4 k/uL (0-1.0); Monocytes % (A) 4 %; Neutrophils # (A) 10.2 k/uL (1.3-7.7); Neutrophils % (A) 89 %; Platelet Count 163 k/uL (150-450); RBC 4.73 m/uL (3.80-5.40); RDW 16.7 % (11.5-15.5); WBC 11.5 k/uL (3.8-10.6)
[2019-11-28 07:52] LABS: Albumin 2.8 g/dL (3.5-5.0); Calcium 7.9 mg/dL (8.4-10.2); Potassium 3.8 mmol/L (3.5-5.1); Total Bilirubin 0.7 mg/dL (0.2-1.3); Total Protein 6.4 g/dL (6.3-8.2)
[2019-11-28] MEDS ORDERED: MYCOPHENOLATE SODIUM DR 180 MG TABLET.DR PO SCH (09:00)
[2019-11-28] MEDS ORDERED: TACROLIMUS 1 MG CAP PO SCH (09:00)
[2019-11-28] MEDS: ASPIRIN 81 MG PO SCH (09:10)
[2019-11-28] MEDS: CHOLECALCIFEROL 1,000 UNIT TAB PO SCH (09:10)
[2019-11-28] MEDS: MAGNESIUM OXIDE 400 MG TAB PO SCH (09:11)
[2019-11-28] MEDS: DOCUSATE 100 MG CAP PO SCH (09:11)
[2019-11-28] MEDS: FERROUS SULFATE 325 MG TAB PO SCH ×2 (09:11→22:04)
[2019-11-28] MEDS: ISOSORBIDE MONONITRATE ER 30 MG TAB.ER.24H PO SCH (09:16)
[2019-11-28] MEDS: SODIUM CHLORIDE 0.9% 1,000 ML IV SCH ×2 (09:19→23:07)
[2019-11-28 12:00] LABS: Glucose,Whole Blood 189 mg/dL (75-99)
[2019-11-28 17:17] LABS: Glucose,Whole Blood 261 mg/dL (75-99)
[2019-11-28] MEDS ORDERED: ALPRAZolam 0.25 MG TAB PO PRN (19:34)
[2019-11-28 19:59] LABS: Glucose,Whole Blood 200 mg/dL (75-99)
--- NOTE | 2019-11-28 20:56 | HP ---
HISTORY AND PHYSICAL DATE OF SERVICE: 11/28/2019 CHIEF COMPLAINT: Change in mental status. HISTORY OF PRESENT ILLNESS: This 69-year-old woman with a past medical history of multiple medical problems, including history of CAD, history of diabetes mellitus, type 2, hypertension, hyperlipidemia, history of myocardial infarction, history of glaucoma, history of cholecystomy, history of CAD, CABG, being followed by Dr. Joel Wong in the outpatient setting, also had frequent UTIs. The patient also was complaining of weakness. Patient had some change in mental status and a UTI was suspected. The patient was admitted for further evaluation and treatment. The evaluation at the time of admission showed elevated WBC. Creatinine was elevated to 1.69. The patient was started on empiric antibiotics. Cultures are negative so far. The patient was unable to give a coherent history. Most of the history was taken from my discussion with the staff and review of the chart at this time. The patient also had relatively low blood pressure. PAST MEDICAL HISTORY: History of CAD, history of diabetes mellitus, type 2, hypertension, hyperlipidemia, history of myocardial infarction, history of appendectomy, history of CAD/CABG. HOME MEDICATIONS: 1. Insulin Toujeo 45 units subcutaneously at bedtime. 2. Iron sulfate 320 mg p.o. b.i.d. 3. Prograf 3 mg p.o. daily. 4. Myfortic 720 mg p.o. daily. 5. Magnesium oxide 250 mg p.o. daily/. 6. Xalatan 0.05% one drop both eyes at bedtime. 7. Imdur 30 mg p.o. daily. 8. Humalog before meals and at bedtime. 9. Colace 100 mg p.o. daily. 10.Vitamin D3 1000 daily. 11.Aspirin 81 mg daily. ALLERGIES: ADHESIVE TAPE, LATEX, REGLAN, GRAPEFRUIT, IBUPROFEN, REQUIP, CHERIE. FAMILY HISTORY: History of CAD in the family. SOCIAL HISTORY: Remote history of smoking. No current smoking or alcohol intake per chart. REVIEW OF SYSTEMS: Review of systems could not be taken because of change in mental status. PHYSICAL EXAMINATION: Pulse is 95, blood pressure 130/61, respiration 20, temperature 99.6, pulse ox 94% on room air. HEENT: Conjunctivae normal. NECK: No jugular venous distention. CARDIOVASCULAR SYSTEM: S1, S2 muffled. RESPIRATORY SYSTEM: Breath sounds diminished at the bases. A few scattered rhonchi and crackles. ABDOMEN: Soft, non-tender. No mass palpable. LEGS: No edema. No swelling. NERVOUS SYSTEM: No focal deficit. LABS: WBC 11.2, hemoglobin 12.4. Sodium 136, potassium 3.8, creatinine 1.67. ASSESSMENT: 1. Acute urinary tract infection, present on admission. 2. Hyponatremia. 3. Increased creatinine with acute renal failure, acute prerenal acute tubular necrosis. 4. Diabetes mellitus, type 2. 5. Increased white count. 6. History of coronary artery disease. 7. History of hypertension. 8. Hyperlipidemia. 9. History of myocardial infarction. 10.History of right eye glaucoma. 11.History of retinal bleed. 12.History of renal failure, stage III. 13.History of right renal transplant in 2008. 14.History of urinary tract infections. 15.History of coronary artery disease, coronary artery bypass grafting. 16.History of hernia repair. 17.Remote history of nicotine dependence. 18.Obesity. 19.FULL CODE. RECOMMENDATIONS AND DISCUSSION: In this 69-year-old woman who presented with multiple complex medical issues, we will monitor the patient closely, continue the current medications, continue symptomatic treatment. Will initiate broad-spectrum IV antibiotics. Cultures. Resume the home medications. A copy of this dictation is being forwarded to Dr. Joel Wong, who is the primary physician. Dr. Harris will follow. MMODL / IJN: [id number] / MTDD
[2019-11-28] MEDS: LATANOPROST 0.005% OPHTH DROPS 2.5 ML BTL BOTH EYES SCH (22:03)
[2019-11-28 22:04] LABS: Glucose,Whole Blood 166 mg/dL (75-99)
[2019-11-28] MEDS: HEPARIN SODIUM,PORCINE 5,000 UNIT/ML 1 ML VIAL SQ SCH (22:04)
[2019-11-28] MEDS: INSULIN DETEMIR (LEVEMIR) 100 UNIT/ML SYR SQ SCH (22:07)
[2019-11-29 04:52] LABS: Glucose,Whole Blood 139 mg/dL (75-99)
[2019-11-29] MEDS: ACETAMINOPHEN TAB 325 MG TAB PO PRN (05:57)
[2019-11-29 07:01] LABS: Glucose,Whole Blood 111 mg/dL (75-99)
[2019-11-29] MEDS: INSULIN ASPART (NovoLOG) 100 UNIT/ML VIAL SQ SCH ×4 (07:18→21:31)
[2019-11-29] MEDS: FERROUS SULFATE 325 MG TAB PO SCH ×3 (09:38→21:30)
[2019-11-29] MEDS: MYCOPHENOLATE SODIUM DR 180 MG TABLET.DR PO SCH ×2 (09:38→21:30)
[2019-11-29] MEDS: DOCUSATE 100 MG CAP PO SCH (09:38)
[2019-11-29] MEDS: TACROLIMUS 1 MG CAP PO SCH (09:38)
[2019-11-29] MEDS: ISOSORBIDE MONONITRATE ER 30 MG TAB.ER.24H PO SCH (09:38)
[2019-11-29] MEDS: MAGNESIUM OXIDE 400 MG TAB PO SCH (09:38)
[2019-11-29] MEDS: PANTOPRAZOLE 40 MG TABLET PO SCH (09:38)
[2019-11-29] MEDS: ASPIRIN 81 MG PO SCH (09:38)
[2019-11-29] MEDS: HEPARIN SODIUM,PORCINE 5,000 UNIT/ML 1 ML VIAL SQ SCH ×2 (09:38→21:29)
[2019-11-29] MEDS: CHOLECALCIFEROL 1,000 UNIT TAB PO SCH (09:38)
[2019-11-29 11:56] LABS: Glucose,Whole Blood 191 mg/dL (75-99)
--- NOTE | 2019-11-29 13:38 | CDI ---
Documentation Clarification Form Date: 11/29/2019 01:19:46 PM From: Lesly Ocampo RN CCDS Admit Date: 11/27/2019 09:03:00 PM Patient Name: Kayla Devine Visit Number: [id number] Discharge Date: ATTENTION: The Clinical Documentation Specialists (CDI) and [facility] Coding Staff appreciate your assistance in clarifying documentation. Please respond to the clarification below the line at the bottom and electronically sign. The CDI & [facility] Coding staff will review the response and follow-up if needed. Please note: Queries are made part of the Legal Health Record. If you have any questions, please contact the author of this message via ITS. Dr. Jacobo Harris Sepsis is documented in the ED impressions 11/27/19 History/Risk Factors: 69-year-old female presents to the ED with weakness and three falls from home. Medical history DM, UTIs, Renal transplant, Clinical Indicators: WBC 11/27 13.7 Blood cultures: 11/28 No growth after 24 hours UA culture 11/29 Gram Neg Bacilli Vitals signs on admission: 11/27 124/84 97 102.2 20 97% ra Treatment: Antibiotics: 11/27 Ceftriaxone IVPB Q 24 Hrs IV Bolus: 11/27 0.9ns 2L Bolus IV In your professional opinion, please clarify if these findings signify one of the following conditions and cause, if known: * Sepsis Ruled Out * Sepsis POA * Other, please specify * Unable to determine SIRS Criteria (2 or more of the following may indicate SIRS): -Temperature < 96.8F (36C) or > 101.0F (38.3C) -Heart Rate > 90 bpm -Respiratory Rate > 20 breaths/min or PaCO2 < 32 mmHg -White Blood Cell Count > 12,000 or < 4,000 cells/mm3 or > 10% bands -Lactate >2.0 mmol/L (>4.0 is equivalent to septic shock) (Last Revision: January 2018) Sepsis, POA MTDD
[2019-11-29 14:39] LABS: Potassium 3.8 mmol/L (3.5-5.1)
[2019-11-29] MEDS: SODIUM CHLORIDE 0.9% 1,000 ML IV SCH (14:41)
[2019-11-29 17:01] LABS: Glucose,Whole Blood 159 mg/dL (75-99)
[2019-11-29 19:02] LABS: Hemoglobin A1C 12.6 % (4.0-6.0)
[2019-11-29] MEDS ORDERED: TACROLIMUS 1 MG CAP PO SCH (21:00)
[2019-11-29 21:12] LABS: Glucose,Whole Blood 160 mg/dL (75-99)
[2019-11-29] MEDS: guaiFENesin 600 MG TABLET.ER PO SCH (21:29)
[2019-11-29] MEDS: INSULIN DETEMIR (LEVEMIR) 100 UNIT/ML SYR SQ SCH (21:31)
[2019-11-29] MEDS: LATANOPROST 0.005% OPHTH DROPS 2.5 ML BTL BOTH EYES SCH (21:44)
--- NOTE | 2019-11-29 22:12 | P.PN ---
Progress Note - Text Progress Note Date: 11/29/19 Presenting complaint: Confused Hospital course: Patient presented with weakness and some confusion was found to have UTI. Started and IV antibiotic. Patient rather incoherent on presentation. Today-looking much better. Able to answer questions. Eating better. Sitting upon a chair. Tired Review of systems: Was done for constitutional, cardiovascular, GI, pulmonary. relevant finding as above Physical examination: VITAL SIGNS: 97.8, 69, 16, 11 6/63, 94% room air GENERAL: [Sitting up in a chair, awake tired. EYES: Pupils equal. Conjunctiva normal. HEENT: External appearance of nose and ears normal, oral cavity grossly normal. NECK: JVD not raised; masses not palpable. HEART: First and second heart sounds are normal; no edema. LUNGS: Respiratory rate normal; clear to auscultation. ABDOMEN: Soft, nontender, liver spleen not palpable, no masses palpable. PSYCH: [Able to answer simple questions l. INVESTIGATIONS, reviewed in the clinical context: Potassium 3. 05/11/1940 creatinine 1.31 Previous testing White count 13.7 hemoglobin 13.6 potassium 4.3 bun 39 creatinine 1.94 UA positive Urine culture positive for gram-negative bacilli Patient's bun is 26 creatinine 1.6 on 08/18/2019 Assessment: -Acute metabolic encephalopathy from UTI, POA, improving -Acute kidney injury likely ATN from underlying infection, improving -Acute UTI from cystitis from gram-negative bacilli, POA -Obesity BMI 39.1 -Coronary artery disease and history of bypass -Diabetes mellitus type 2 -Hyperlipidemia -Essential hypertension -Renal transplant in 2008 -Chronic kidney disease stage III Plan: Continue gentle hydration. Other medications to continue. Follow Accu-Cheks. Doing better. Repeat renal function. Get a nephrology opinion. If continues to improve hopefully discharge tomorrow after urine cultures back. Continue ceftriaxone .
[2019-11-30 06:51] LABS: Glucose,Whole Blood 68 mg/dL (75-99)
[2019-11-30 08:30] VITALS: RESP 17
[2019-11-30] MEDS: INSULIN ASPART (NovoLOG) 100 UNIT/ML VIAL SQ SCH ×3 (09:03→17:10)
[2019-11-30 09:13] LABS: Glucose,Whole Blood 101 mg/dL (75-99)
[2019-11-30] MEDS: DOCUSATE 100 MG CAP PO SCH (09:13)
[2019-11-30] MEDS: ASPIRIN 81 MG PO SCH (09:13)
[2019-11-30] MEDS: CHOLECALCIFEROL 1,000 UNIT TAB PO SCH (09:13)
[2019-11-30] MEDS: TACROLIMUS 1 MG CAP PO SCH (09:13)
[2019-11-30] MEDS: MAGNESIUM OXIDE 400 MG TAB PO SCH (09:13)
[2019-11-30] MEDS: ISOSORBIDE MONONITRATE ER 30 MG TAB.ER.24H PO SCH (09:13)
[2019-11-30] MEDS: guaiFENesin 600 MG TABLET.ER PO SCH (09:13)
[2019-11-30] MEDS: PANTOPRAZOLE 40 MG TABLET PO SCH (09:13)
[2019-11-30] MEDS: FERROUS SULFATE 325 MG TAB PO SCH (09:13)
[2019-11-30] MEDS: HEPARIN SODIUM,PORCINE 5,000 UNIT/ML 1 ML VIAL SQ SCH (09:13)
[2019-11-30] MEDS: MYCOPHENOLATE SODIUM DR 180 MG TABLET.DR PO SCH (09:14)
[2019-11-30 10:47] VITALS: BMI 39.1
[2019-11-30 11:59] LABS: Glucose,Whole Blood 100 mg/dL (75-99)
--- NOTE | 2019-11-30 13:06 | CONS ---
CONSULTATION REASON FOR CONSULT: Renal transplant. HISTORY OF PRESENT ILLNESS: Patient is a 69-year-old female with a history of living unrelated renal transplant in 2008 with baseline creatinine 1.1 to 1.2 mg/dL. The patient has a history of repeated urinary tract infections. She was admitted to the hospital with weakness and was found to have Klebsiella pneumoniae UTI. The patient has been maintained on antibiotics. She has also been hydrated. She is currently feeling much better than on admission. Serum creatinine has come down to 1.3 from 1.9 on initial admission. Previous creatinine was 1.3 in December of 2018. Overall, the patient states she is feeling much better. PAST MEDICAL HISTORY: End-stage renal disease, status post living unrelated renal transplant 200_, CKD with CKD mineral bone disorder, coronary artery disease, type-2 diabetes, hyperlipidemia, history of glaucoma, repeated urinary tract infections. PAST SURGICAL HISTORY: Appendectomy, renal transplant, hernia repair, coronary artery bypass surgery, cholecystectomy, hysterectomy. SOCIAL HISTORY: Patient is a former smoker. No history of drug abuse or alcohol abuse. MEDICATIONS: Medications at home prior to admission included Prograf, iron, magnesium, insulin, Colace, aspirin, and Myfortic. PHYSICAL EXAMINATION: On examination, patient is comfortable; awake, alert, oriented x 3, not in any acute distress. Blood pressure is 120/72, heart rate 74 per minute. She is afebrile. EXAMINATION OF THE HEART: S1 and S2. EXAMINATION OF THE LUNGS: Bilateral breath sounds are heard. ABDOMEN: Soft, nontender. EXTREMITIES: Examination of lower extremities shows no evidence of edema. CLEARANCE COORDINATOR EXAM: Grossly intact. LABS: Labs show sodium 133, potassium 3.8, chloride 103, BUN 38, creatinine 1.3. Urinalysis showed 2+ protein, blood moderate, wbc's more than 182 on initial admission. ASSESSMENT: 1. Acute kidney injury secondary to urinary tract infection and prerenal, currently improved. 2. Urinary tract infection with Klebsiella pneumoniae, maintained on antibiotics. 3. Status post living unrelated renal transplant, 2008. Baseline creatinine 1.1 to 1.2 mg/dL. PLAN: Continue with current immunosuppressive medications. Continue antibiotics. Encourage increased oral intake. Continue with the IV fluids. Repeat labs in a.m. Thank you for this consultation. We will continue to follow the patient with you during her hospitalization. MMODL / IJN: [id number] /
[2019-11-30] MEDS ORDERED: OLANZapine 5 MG TAB PO SCH (16:00)
[2019-11-30 17:09] LABS: Glucose,Whole Blood 174 mg/dL (75-99)
[2019-11-30 17:24] VITALS: BP 150/78; PULSE 68; TEMP 98.3
--- NOTE | 2019-12-01 19:58 | P.DS ---
Providers Date of admission: 11/27/19 21:03 Expected date of discharge: 11/30/19 Attending physician: Jacobo Harris Consults: 11/29/19 13:46 Consult Physician Routine Consulting Provider: Yoly Rosa Consult Reason/Comments: renal transplant Do you want consulting provider notified?: Yes Primary care physician: [facility] [place] Hospital Course: Presenting complaint: Confused Hospital course: Patient presented with weakness and some confusion was found to have UTI. Started and IV antibiotic. Patient rather incoherent on presentation. Today much improved. Edema. Answering questions. Consultation: Dr. Lavonne Rosa from nephrology Physical examination: VITAL SIGNS: 98.3, 68, 17, 120/72, 95% on room air GENERAL: Sitting up in a chair, comfortable EYES: Pupils equal. Conjunctiva normal. HEENT: External appearance of nose and ears normal, oral cavity grossly normal. NECK: JVD not raised; masses not palpable. HEART: First and second heart sounds are normal; no edema. LUNGS: Respiratory rate normal; clear to auscultation. ABDOMEN: Soft, nontender, liver spleen not palpable, no masses palpable. PSYCH: Answering questions appropriately INVESTIGATIONS, reviewed in the clinical context: Potassium 3. 05/11/1940 creatinine 1.31 Previous testing White count 13.7 hemoglobin 13.6 potassium 4.3 bun 39 creatinine 1.94 UA positive Urine culture positive for gram-negative bacilli Patient's bun is 26 creatinine 1.6 on 08/18/2019 Assessment: -Acute metabolic encephalopathy from UTI, POA, corrected -Acute kidney injury likely ATN from underlying infection, improved -Acute UTI from cystitis from Klebsiella pneumoniae, POA -Obesity BMI 39.1 -Coronary artery disease and history of bypass -Diabetes mellitus type 2 -Hyperlipidemia -Essential hypertension -Renal transplant in 2008 -Chronic kidney disease stage III Disposition: Home Patient Condition at Discharge: Stable Plan - Discharge Summary Discharge Rx Participant: No New Discharge Prescriptions: New Cefuroxime Axetil [Ceftin] 500 mg PO BID 3 Days #6 tab Continue Mycophenolate Sodium Dr [Myfortic] 720 mg PO DAILY Cholecalciferol [Vitamin D3 (25 Mcg = 1000 Iu)] 1,000 unit PO DAILY INSULIN LISPRO (HumaLOG) [humaLOG] See Protocol SQ ACHS Tacrolimus [Prograf] 3 mg PO DAILY Isosorbide Mononitrate ER [Imdur] 30 mg PO DAILY Latanoprost Ophth [Xalatan 0.005%] 1 drop BOTH EYES HS Aspirin 81 mg PO DAILY chew Docusate [Colace] 100 mg PO DAILY Ferrous Sulfate [Iron (65 MG Elemental)] 325 mg PO BID Magnesium Oxide [Mag-Ox] 250 mg PO DAILY Changed Insulin Glargine,Hum.rec.anlog [Tonuriao Alicjanelsy] 36 units SQ HS #0 Discharge Medication List Cholecalciferol [Vitamin D3 (25 Mcg = 1000 Iu)] 1,000 unit PO DAILY 03/14/14 [History] Mycophenolate Sodium Dr [Myfortic] 720 mg PO DAILY 03/14/14 [History] INSULIN LISPRO (HumaLOG) [humaLOG] See Protocol SQ ACHS 03/21/16 [History] Tacrolimus [Prograf] 3 mg PO DAILY 09/13/17 [History] Isosorbide Mononitrate ER [Imdur] 30 mg PO DAILY 11/26/17 [History] Latanoprost Ophth [Xalatan 0.005%] 1 drop BOTH EYES HS 04/06/18 [History] Aspirin 81 mg PO DAILY chew 07/21/18 [Rx] Docusate [Colace] 100 mg PO DAILY 11/27/19 [History] Ferrous Sulfate [Iron (65 MG Elemental)] 325 mg PO BID 11/27/19 [History] Magnesium Oxide [Mag-Ox] 250 mg PO DAILY 11/27/19 [History] Cefuroxime Axetil [Ceftin] 500 mg PO BID 3 Days #6 tab 11/30/19 [Rx] Insulin Glargine,Hum.rec.anlog [Brooke Alicjanelsy] 36 units SQ HS #0 11/30/19 [Rx] Follow up Appointment(s)/Referral(s): Yoly Rosa MD [STAFF PHYSICIAN] - 12/21/19 11:00 am Joel Wong DO [Primary Care Provider] - 12/13/19 2:15 pm Patient Instructions/Handouts: Urinary Tract Infection in Women (DC) Activity/Diet/Wound Care/Special Instructions: dc if ok with nephrology Discharge Disposition: HOME SELF-CARE
== END 2019-11-30 17:45 | disposition home or self-care (01) | DRG 871 ==
LOC: EC 19:26 → 4SSUR 21:03
PROVIDERS: ADMIT Hospitalist; ATTEND Hospitalist
DX: A41.59 Other Gram-negative sepsis (principal); G93.41 Metabolic encephalopathy; N17.0 Acute kidney failure with tubular necrosis; E87.1 Hypo-osmolality and hyponatremia; N30.00 Acute cystitis without hematuria; Z94.0 Kidney transplant status; E11.22 Type 2 diabetes mellitus with diabetic chronic kidney disease; N18.3 Chronic kidney disease, stage 3 (moderate); E66.9 Obesity, unspecified; E78.5 Hyperlipidemia, unspecified; I25.10 Atherosclerotic heart disease of native coronary artery without angina pectoris; I25.2 Old myocardial infarction; H40.9 Unspecified glaucoma; M89.9 Disorder of bone, unspecified; I12.9 Hypertensive chronic kidney disease with stage 1 through stage 4 chronic kidney disease, or unspecified chronic kidney disease; I44.7 Left bundle-branch block, unspecified; Z68.39 Body mass index [BMI] 39.0-39.9, adult; Z79.4 Long term (current) use of insulin; Z79.82 Long term (current) use of aspirin; Z79.899 Other long term (current) drug therapy; Z87.440 Personal history of urinary (tract) infections; Z87.891 Personal history of nicotine dependence; Z90.49 Acquired absence of other specified parts of digestive tract; Z90.710 Acquired absence of both cervix and uterus; Z95.1 Presence of aortocoronary bypass graft; Z88.6 Allergy status to analgesic agent; Z91.040 Latex allergy status; Z88.8 Allergy status to other drugs, medicaments and biological substances; Z91.018 Allergy to other foods; Z98.42 Cataract extraction status, left eye; Z98.41 Cataract extraction status, right eye; Z96.1 Presence of intraocular lens; Z82.49 Family history of ischemic heart disease and other diseases of the circulatory system; Z80.0 Family history of malignant neoplasm of digestive organs; W19.XXXA Unspecified fall, initial encounter
CPT/HCPCS: 36415; 71046; 80048; 80053; 81001; 83036; 83605; 85025; 85610; 85730; 87040; 87077; 87086; 87186; 87502; 93005; 96361; 96365; 99285

== ENCOUNTER 2020-04-18 21:42 | Inpatient (IN) | payer MEDICARE ==
[2020-04-18 22:15] LABS: Basophils # (A) 0.1 k/uL (0-0.2); Basophils % (A) 1 %; Eosinophils # (A) 0.4 k/uL (0-0.7); Eosinophils % (A) 10 %; HCT 43.4 % (34.0-46.0); HGB 13.8 gm/dL (11.4-16.0); Lymphocytes # (A) 1.5 k/uL (1.0-4.8); Lymphocytes % (A) 37 %; MCH 27.7 pg (25.0-35.0); MCHC 31.7 g/dL (31.0-37.0); MCV 87.2 fL (80.0-100.0); Monocytes # (A) 0.2 k/uL (0-1.0); Monocytes % (A) 5 %; Neutrophils # (A) 1.7 k/uL (1.3-7.7); Neutrophils % (A) 43 %; Platelet Count 158 k/uL (150-450); RBC 4.98 m/uL (3.80-5.40)
[2020-04-18 22:29] LABS: Albumin 3.8 g/dL (3.5-5.0); Calcium 9.4 mg/dL (8.4-10.2); Magnesium 1.9 mg/dL (1.6-2.3); Potassium 4.9 mmol/L (3.5-5.1); Total Bilirubin 0.5 mg/dL (0.2-1.3); Total Protein 7.2 g/dL (6.3-8.2)
[2020-04-18 22:37] LABS: INR 0.9 (<1.2); Partial Thromboplastin Time 22.1 sec (22.0-30.0); Prothrombin Time 9.7 sec (9.0-12.0)
--- NOTE | 2020-04-18 22:41 | XR ---
EXAMINATION TYPE: XR chest 2V DATE OF EXAM: 04/18/2020 COMPARISON: 11/27/2019 HISTORY: Fever TECHNIQUE: 2 views FINDINGS: Heart is normal. Lungs are clear of consolidation. There are no hilar masses. There are elliott rnal wires. There are chest leads. Costophrenic angles are clear. Bony thorax is intact. IMPRESSION: No active cardiopulmonary disease. No sign of bronchopneumonia. No adverse change compare d to old exam.
[2020-04-18] MEDS ORDERED: NALOXONE 0.4 MG/ML 1 ML VIAL IV PRN (23:58)
--- NOTE | 2020-04-18 23:58 | ED ---
Chest Pain HPI - General Chief Complaint: Chest Pain Stated Complaint: Chest Pain Source: patient, EMS Mode of arrival: EMS Limitations: no limitations - History of Present Illness Initial Comments: Patient is a 69-year-old female past history of coronary artery disease status post CABG 10 years ago who presents emergency room with reported chest pain. States she was sleeping and it awoke her from sleep. He reported that it was a pressure on her chest without radiation. She did 2 nitro at home without improvement in her symptoms and called EMS. She sees Dr. Pandey in office. States that she has not had any recent cardiac evaluation. She denies associated shortness of breath, cough or hemoptysis. No lower extremity edema. No history of DVT or PE. No fevers or chills. No other alleviating, precipitating or modifying factors - Related Data Home Medications Medication Instructions Recorded Confirmed Cholecalciferol [Vitamin D3 (25 1,000 unit PO BID 03/14/14 04/19/20 Mcg = 1000 Iu)] Mycophenolate Sodium Dr [Myfortic] 360 mg PO BID 03/14/14 04/19/20 INSULIN LISPRO (HumaLOG) [humaLOG] See Protocol SQ ACHS 03/21/16 04/19/20 Tacrolimus [Prograf] 2 mg PO DAILY 09/13/17 04/19/20 Isosorbide Mononitrate ER [Imdur] 30 mg PO DAILY 11/26/17 04/19/20 Latanoprost Ophth [Xalatan 0.005%] 1 drop BOTH EYES HS 04/06/18 04/19/20 Docusate [Colace] 100 mg PO DAILY 11/27/19 04/19/20 Ferrous Sulfate [Iron (65 MG 325 mg PO HS 11/27/19 04/19/20 Elemental)] Cetirizine HCl [Zyrtec] 10 mg PO DAILY 04/18/20 04/19/20 Fluticasone Propionate [Flonase 1 spray EA NOSTRIL HS 04/18/20 04/19/20 Allergy Relief] Insulin Glargine,Hum.rec.anlog 35 units SQ HS 04/18/20 04/19/20 [Brooke Solostyovany] Magnesium Oxide 400 mg PO BID 04/18/20 04/19/20 Tacrolimus [Prograf] 1 mg PO HS 04/18/20 04/19/20 Previous Rx's Medication Instructions Recorded Aspirin 81 mg PO DAILY #30 chew 04/22/20 Atorvastatin [Lipitor] 40 mg PO HS #30 tab 04/22/20 Metoprolol Succinate (ER) [Toprol 25 mg PO DAILY #30 tab.er.24h 04/22/20 XL] Nitroglycerin Sl Tabs [Nitrostat] 0.4 mg SUBLINGUAL Q5M PRN #20 tab 04/22/20 Allergies Allergy/AdvReac Type Severity Reaction Status Date / Time adhesive tape Allergy tears skin Verified 04/18/20 23:56 latex Allergy Unknown Verified 04/18/20 23:56 metoclopramide HCl Allergy Unknown Verified 04/18/20 23:56 [From Reglan] grapefruit [Grapefruit] AdvReac reaction Verified 04/18/20 23:56 with simvastatin ibuprofen AdvReac kidney Verified 04/18/20 23:56 failure/transplant ropinirole [From Requip] AdvReac LEG CRAMPS Verified 04/18/20 23:56 nupur Allergy Rash/Hives Uncoded 05/26/18 09:53 Review of Systems ROS Statement: Those systems with pertinent positive or pertinent negative responses have been documented in the HPI. ROS Other: All systems not noted in ROS Statement are negative. EKG Findings - EKG Comments: EKG Findings:: EKG demonstrates a normal sinus rhythm with a ventricular rate of 67. NC interval 138. QRS 110. QTC of 424. Incomplete left bundle branch block. Negative for scar Pérez criteria. No acute ST segment elevations. Inverted T wave with depression in 1 and aVL Past Medical History Past Medical History: Coronary Artery Disease (CAD), Diabetes Mellitus, Eye Disorder, Hyperlipidemia, Hypertension, Myocardial Infarction (UT), Renal Disease, Skin Disorder Additional Past Medical History / Comment(s): R eye glaucoma, retinal bleed and little vision, renal failure Stage 3 - R renal transplant in 2008, UTIs with sepsis, Last Myocardial Infarction Date:: 2009 History of Any Multi-Drug Resistant Organisms: None Reported Past Surgical History: Appendectomy, Cholecystectomy, Coronary Bypass/CABG, Heart Catheterization, Hernia Repair, Hysterectomy Additional Past Surgical History / Comment(s): 2009 right kidney transplant, 4 vessel CABG in 2009, umbilical hernia repair, colonoscopies, silvia cataract removed, R eye laser surgeries. Past Anesthesia/Blood Transfusion Reactions: No Reported Reaction Additional Past Anesthesia/Blood Transfusion Reaction / Comment(s): unknown Past Psychological History: No Psychological Hx Reported Smoking Status: Former smoker Past Alcohol Use History: None Reported Past Drug Use History: None Reported - Past Family History Brother(s) Family Medical History: Cancer Mother Family Medical History: Coronary Artery Disease (CAD) Additional Family Medical History / Comment(s): mom had heart disease Father Family Medical History: Cancer Additional Family Medical History / Comment(s): lung and pancreatic cancer General Exam Limitations: no limitations General appearance: alert, in no apparent distress Head exam: Present: atraumatic, normocephalic, normal inspection Eye exam: Present: normal appearance, PERRL, EOMI. Absent: scleral icterus, conjunctival injection, periorbital swelling ENT exam: Present: normal exam, mucous membranes moist Neck exam: Present: normal inspection. Absent: tenderness, meningismus, lymphadenopathy Respiratory exam: Present: normal lung sounds bilaterally. Absent: respiratory distress, wheezes, rales, rhonchi, stridor Cardiovascular Exam: Present: regular rate, normal rhythm, normal heart sounds. Absent: systolic murmur, diastolic murmur, rubs, gallop, clicks GI/Abdominal exam: Present: soft, normal bowel sounds. Absent: distended, tenderness, guarding, rebound, rigid Extremities exam: Present: normal inspection, full ROM, normal capillary refill. Absent: tenderness, pedal edema, joint swelling, calf tenderness Back exam: Present: normal inspection Neurological exam: Present: alert, oriented X3, CN II-XII intact Psychiatric exam: Present: normal affect, normal mood Skin exam: Present: warm, dry, intact, normal color. Absent: rash Course Vital Signs 04/18/20 04/18/20 04/19/20 21:43 23:12 00:29 Temperature 98 F 97.8 F Pulse Rate 70 68 Pulse Rate [ 72 Pulse Oximetery ] Respiratory 18 18 14 Rate Blood Pressure 195/85 176/80 O2 Sat by Pulse 98 96 97 Oximetry Chest Pain MDM - MDM Upon arrival patient was placed into room 11. There was in physical exam was performed. 12-lead EKG was performed which demonstrates no signs of acute ST segment elevation. Laboratory studies were conducted. First troponin is negative. Because the patient's significant cardiac history did recommend hospital admission for which the patient did agree. Chest x-ray is read as no acute intrathoracic process. She agree to this plan. She was pain-free upon hospital arrival and continues to remain pain-free. She was admitted to Dr. Harris. Patient was admitted to the floor stable condition Disposition Clinical Impression: Chest pain, ASCVD (arteriosclerotic cardiovascular disease) Disposition: ADMITTED IP TO THIS HOSP Condition: Stable Is patient prescribed a controlled substance at d/c from ED?: No Decision to Admit Reason: Admit from EC Decision Date: 04/18/20 Decision Time: 23:57
[2020-04-19] MEDS ORDERED: REGADENOSON 0.4 MG/5 ML SYRINGE IV ONE (08:28)
[2020-04-19] MEDS ORDERED: CAFFEINE CITRATE 60 MG/3 ML VIAL IV PRN (08:28)
[2020-04-19] MEDS ORDERED: AMINOPHYLLINE 500 MG/20 ML VIAL IV PRN (08:28)
--- NOTE | 2020-04-19 09:19 | P.CRDCN ---
History of Present Illness History of present illness: HISTORY OF PRESENTING ILLNESS This is a pleasant 69-year-old female past medical history significant for coronary artery disease s/p bypass grafting, hypertension, dyslipidemia, di abetes mellitus and renal transplantation. She follows in the office with Dr. Girard. We have been asked to see in consultation for chest pain. She states last night while sleeping she was woken up suddenly with a pain in the mid-sternal region. It felt like a heavy pressure sensation. The type of discomfort was similar to MA in the past but the intensity was much less. She woke up and checked her blood pressure which came to be high at 160/110. She took SL nitro. After 5 minutes her symptoms had not improved so she took another. After 5 more minutes her symptoms persisted so she came to ER for further evaluation. She denies radiation to the arm, back, neck or jaw. She had no associated shortness of breath, dizziness, nausea, vomiting, diaphoresis or palpitations. Blood pressure on arrival 195/85. No medications were given. Her chest pain subsided on its own after about 1 hour. DIAGNOSTICS EKG reveals sinus mechanism, incomplete left bundle branch block, T-wave inversions in the high lateral leads, left axis deviation with a heart rate of 67. Consistent with old EKGs. No acute changes noted. Chest xray negative for an acute cardiopulmonary process. Laboratory reviewed, CBC unremarkable, sodium 134, potassium 4.9, creatinine 1.21 with a GFR 45, magnesium 1.9, cardiac enzymes negative 3, NT proBNP 1160. Current cardiac medications include Imdur 30 mg daily. Most recent echocardiogram obtained July 2018 revealed mildly impaired LV systolic function with ejection fraction 45-50%, basal inferior and mid inferior wall motion hypokinesia, mild aortic stenosis with a mean gradient of 7 mmHg, mild MR and mild TR. REVIEW OF SYSTEMS At the time of my exam: CONSTITUTIONAL: Denies fever or chills. CARDIOVASCULAR: Denies chest pain, shortness of breath, orthopnea, PND or pal pitations. RESPIRATORY: Denies cough. GASTROINTESTINAL: Denies abdominal pain, diarrhea, constipation, nausea or vomiting. MUSCULOSKELETAL: Denies myalgias. NEUROLOGIC: Denies numbness, tingling or weakness. ENDOCRINE: Denies fatigue, weight change, polydipsia or polyurina. GENITOURINARY: Denies burning, hematuria or urgency with micturation. HEMATOLOGIC: Denies history of anemia or bleeding. PHYSICAL EXAMINATION Blood pressure 142/65 heart rate 65 afebrile and maintaining oxygen saturation on room air. CONSTITUTIONAL: No apparent distress. Obese. HEENT: Head is normocephalic. Pupils are equal, round. Sclerae anicteric. Mucous membranes of the mouth are moist. No JVD. No carotid bruit. CHEST EXAMINATION: Lungs are clear to auscultation. No chest wall tenderness is noted on palpation or with deep breathing. HEART EXAMINATION: Regular rate and rhythm. S1, S2 heard. Systolic ejection murmur at the base and left sternal border, no gallops or rub. ABDOMEN: Soft, nontender. Positive bowel sounds. EXTREMITIES: 2+ peripheral pulses, no lower extremity edema and no calf tenderness. NEUROLOGIC EXAMINATION: Patient is awake, alert and oriented x3. ASSESSMENT Chest pain. An acute coronary event has been ruled out. Ischecmic cardiomyopathy Coronary artery disease s/p bypass grafting Hypertension Dyslipidemia Diabetes mellitus Chronic renal failure s/p renal transplant PLAN An acute coronary event has been ruled out. Obtain 2D echocardiogram and doppler study to assess cardiac structure and function. Perform lexiscan stress test to assess for reversible cardiac ischemia. Medications need to be clarified with pharmacy. Office records indicate toprol 25 mg daily, aspirin 81 mg daily and imdur 30 mg daily. We will resume these medications. No TAMIR due to renal transplantation. Initiate atorvastatin 40 mg daily. Further recommendations to follow based on cardiac testing. Thank you kindly for this consultation. Nurse Practitioner note has been reviewed, I agree with a documented findings and plan of care. Patient was seen and examined. Past Medical History Past Medical History: Coronary Artery Disease (CAD), Diabetes Mellitus, Eye Disorder, Hyperlipidemia, Hypertension, Myocardial Infarction ([place]), Renal Disease, Skin Disorder Additional Past Medical History / Comment(s): R eye glaucoma, retinal bleed and little vision, renal failure Stage 3 - R renal transplant in 2008, UTIs with sepsis, Last Myocardial Infarction Date:: 2009 History of Any Multi-Drug Resistant Organisms: None Reported Past Surgical History: Appendectomy, Cholecystectomy, Coronary Bypass/CABG, Heart Catheterization, Hernia Repair, Hysterectomy Additional Past Surgical History / Comment(s): 2009 right kidney transplant, 4 vessel CABG in 2010, umbilical hernia repair, colonoscopies, silvia cataract removed, R eye laser surgeries. Past Anesthesia/Blood Transfusion Reactions: No Reported Reaction Additional Past Anesthesia/Blood Transfusion Reaction / Comment(s): unknown Past Psychological History: No Psychological Hx Reported Smoking Status: Former smoker Past Alcohol Use History: None Reported Past Drug Use History: None Reported - Past Family History Brother(s) Family Medical History: Cancer Mother Family Medical History: Coronary Artery Disease (CAD) Additional Family Medical History / Comment(s): mom had heart disease Father Family Medical History: Cancer Additional Family Medical History / Comment(s): lung and pancreatic cancer Medications and Allergies Home Medications Medication Instructions Recorded Confirmed Type Cholecalciferol [Vitamin D3 (25 1,000 unit PO BID 03/14/14 04/19/20 History Mcg = 1000 Iu)] Mycophenolate Sodium Dr [Myfortic] 360 mg PO BID 03/14/14 04/19/20 History INSULIN LISPRO (HumaLOG) [humaLOG] See Protocol SQ ACHS 03/21/16 04/19/20 History Tacrolimus [Prograf] 2 mg PO DAILY 09/13/17 04/19/20 History Isosorbide Mononitrate ER [Imdur] 30 mg PO DAILY 11/26/17 04/19/20 History Latanoprost Ophth [Xalatan 0.005%] 1 drop BOTH EYES HS 04/06/18 04/19/20 History Docusate [Colace] 100 mg PO DAILY 11/27/19 04/19/20 History Ferrous Sulfate [Iron (65 MG 325 mg PO HS 11/27/19 04/19/20 History Elemental)] Cetirizine HCl [Zyrtec] 10 mg PO DAILY 04/18/20 04/19/20 History Fluticasone Propionate [Flonase 1 spray EA NOSTRIL HS 04/18/20 04/19/20 History Allergy Relief] Insulin Glargine,Hum.rec.anlog 35 units SQ HS 04/18/20 04/19/20 History [Toujeo Solostar] Magnesium Oxide 400 mg PO BID 04/18/20 04/19/20 History Tacrolimus [Prograf] 1 mg PO HS 04/18/20 04/19/20 History Allergies Allergy/AdvReac Type Severity Reaction Status Date / Time adhesive tape Allergy tears skin Verified 04/18/20 23:56 latex Allergy Unknown Verified 04/18/20 23:56 metoclopramide HCl Allergy Unknown Verified 04/18/20 23:56 [From Reglan] grapefruit [Grapefruit] AdvReac reaction Verified 04/18/20 23:56 with simvastatin ibuprofen AdvReac kidney Verified 04/18/20 23:56 failure/transplant ropinirole [From Requip] AdvReac LEG CRAMPS Verified 04/18/20 23:56 nupur Allergy Rash/Hives Uncoded 05/26/18 09:53 Physical Exam Vitals: Vital Signs Temp Pulse Pulse Resp BP BP BP 04/19/20 06:26 143/82 04/19/20 02:50 161/80 04/19/20 02:00 175/100 04/19/20 00:29 97.8 F 72 14 04/18/20 23:12 68 18 176/80 04/18/20 21:43 98 F 70 18 195/85 Pulse Ox 04/19/20 06:26 04/19/20 02:50 04/19/20 02:00 04/19/20 00:29 97 04/18/20 23:12 96 04/18/20 21:43 98 Intake and Output 04/18/20 04/19/20 04/19/20 22:59 06:59 14:59 Other: Voiding Method Toilet # Voids 2 Weight 99.79 kg 98 kg Results 04/18/20 21:57 04/18/20 21:57 Cardiac Enzymes 04/18/20 04/18/20 04/19/20 Range/Units 21:57 21:57 01:41 AST 21 (14-36) U/L Troponin I <0.012 <0.012 (0.000-0.034) ng/mL 04/19/20 Range/Units 03:35 AST (14-36) U/L Troponin I <0.012 (0.000-0.034) ng/mL Coagulation 04/18/20 Range/Units 21:57 PT 9.7 (9.0-12.0) sec APTT 22.1 (22.0-30.0) sec CBC 04/18/20 Range/Units 21:57 WBC 4.0 (3.8-10.6) k/uL RBC 4.98 (3.80-5.40) m/uL Hgb 13.8 (11.4-16.0) gm/dL Hct 43.4 (34.0-46.0) % Plt Count 158 (150-450) k/uL Comprehensive Metabolic Panel 04/18/20 Range/Units 21:57 Sodium 134 L (137-145) mmol/L Potassium 4.9 (3.5-5.1) mmol/L Chloride 102 (98-107) mmol/L Carbon Dioxide 24 (22-30) mmol/L BUN 24 H (7-17) mg/dL Creatinine 1.21 H (0.52-1.04) mg/dL Glucose 290 H (74-99) mg/dL Calcium 9.4 (8.4-10.2) mg/dL AST 21 (14-36) U/L ALT 11 (4-34) U/L Alkaline Phosphatase 86 (38-126) U/L Total Protein 7.2 (6.3-8.2) g/dL Albumin 3.8 (3.5-5.0) g/dL Current Medications Generic Name Dose Route Start Last Admin Trade Name Freq PRN Reason Stop Dose Admin Naloxone HCl 0.2 mg 04/18/20 23:58 Narcan IV Q2M PRN Opioid Reversal Intake and Output 04/18/20 04/19/20 04/19/20 22:59 06:59 14:59 Other: Voiding Method Toilet # Voids 2 Weight 99.79 kg 98 kg 04/18/20 21:57 04/18/20 21:57
[2020-04-19 10:36] LABS: Cholesterol 159 mg/dL (<200); HDL Cholesterol 33 mg/dL (40-60); LDL Cholesterol,Calculated 92 mg/dL (0-99); Triglycerides 168 mg/dL (<150)
--- NOTE | 2020-04-19 11:30 | ECHOF ---
Referral Reason:cp MEASUREMENTS -------- HEIGHT: 170.2 cm WEIGHT: 98.0 kg BP: RVIDd: 2.5 cm (< 3.3) IVSd: 2.1 cm (0.6 - 1.1) LVIDd: 2.2 cm (3.9 - 5.3) LVPWd: 2.1 cm (0.6 - 1.1) IVSs: 2.3 cm LVIDs: 1.5 cm LVPWs: 2.1 cm LAESV Index (A-L): 26.62 ml/m Ao Diam: 3.0 cm (2.0 - 3.7) AV Cusp: 1.5 cm (1.5 - 2.6) LA Diam: 3.2 cm (2.7 - 3.8) MV EXCURSION: 10.412 mm (> 18.000) MV EF SLOPE: 24 mm/s (70 - 150) EPSS: 0.8 cm MV E Ross: 0.74 m/s MV DecT: 188 ms MV A Ross: 1.09 m/s MV E/A Ratio: 0.68 RAP: 5.00 mmHg RVSP: 32.85 mmHg FINDINGS -------- Sinus rhythm. This was a technically difficult study with suboptimal views. The left ventricular size is normal. There is severe concentric left ventricular hypertrophy. Ove rall left ventricular systolic function is low-normal with, an EF between 50 - 55 %. Normal LAP. Gr farhana 1 Diastolic Dysfunction. Basal inferior LV wall motion is hypokinetic. Mid inferior LV wall motion is hypokinetic. The right ventricle is normal in size. Normal LA size by volume 22+/-6 ml/m2. The right atrial size is normal. xx ml of Lumason was utilized for enhancement of images. There is mild aortic valve sclerosis. The mitral valve is normal. Mild mitral regurgitation is present. The tricuspid valve appears structurally normal. Mild tricuspid regurgitation present. Right vent ricular systolic pressure is normal at < 35 mmHg. There is no pulmonic regurgitation present. The aortic root size is normal. IVC Not well visulized. There is no pericardial effusion. CONCLUSIONS -------- 1. This was a technically difficult study with suboptimal views. 2. There is severe concentric left ventricular hypertrophy. 3. Overall left ventricular systolic function is low-normal with, an EF between 50 - 55 %. 4. Normal LAP. Grade 1 Diastolic Dysfunction. 5. Basal inferior LV wall motion is hypokinetic. 6. Mid inferior LV wall motion is hypokinetic. 7. Normal LA size by volume 22+/-6 ml/m2. 8. xx ml of Lumason was utilized for enhancement of images. 9. There is mild aortic valve sclerosis. 10. Mild mitral regurgitation is present. 11. Mild tricuspid regurgitation present. 12. There is no pericardial effusion. ANTHROPOLOGY INSTRUCTOR: May Ochoa RDCS
[2020-04-19 12:00] LABS: Glucose,Whole Blood 232 mg/dL (75-99)
--- NOTE | 2020-04-19 12:07 | EST ---
EXERCISE STRESS AGE: 69 SEX: F HT: 5'7' WT: 216. PROTOCOL: Lexiscan Cardiolite Stress Test HEART RATE REST: 72 BLOOD PRESSURE REST: 140/87 MAXIMUM HEART RATE ACHIEVED: 85 MAXIMUM BLOOD PRESSURE: 152/72 85% MPHR: 127 100% MPHR: 149 INDICATIONS: Chest pain. CLINICAL INFORMATION: Baseline rhythm is sinus mechanism, rate of 72, normal axis and intervals, poor R-wave progression. Nonspecific ST-T wave changes. Baseline blood pressure 140/87 mmHg. Patient received an injection of Lexiscan. Electrocardiograph monitoring revealed no evidence of diagnostic ischemic ST deviation. Cardiolite was injected per protocol. CONCLUSION: 1. Nondiagnostic electrocardiograph stress testing. 2. Nuclear images will be reported separately. MMODL / IJN: [id number] /
[2020-04-19] MEDS: INSULIN ASPART (NovoLOG) 100 UNIT/ML VIAL SQ SCH ×3 (12:58→22:38)
[2020-04-19] MEDS: MAGNESIUM OXIDE 400 MG TAB PO SCH ×2 (12:58→22:38)
[2020-04-19] MEDS: ASPIRIN 81 MG PO SCH (12:58)
[2020-04-19] MEDS: ISOSORBIDE MONONITRATE ER 30 MG TAB.ER.24H PO SCH (13:49)
[2020-04-19] MEDS: METOPROLOL SUCCINATE (ER) 25 MG TAB.ER.24H PO SCH (13:49)
[2020-04-19 14:06] LABS: Glucose,Whole Blood 205 mg/dL (75-99)
[2020-04-19] MEDS: MYCOPHENOLATE SODIUM DR 180 MG TABLET.DR PO SCH ×2 (15:14→22:59)
[2020-04-19] MEDS: TACROLIMUS 1 MG CAP PO SCH ×2 (15:14→23:15)
--- NOTE | 2020-04-19 15:35 | NM ---
EXAMINATION TYPE: NM stress lexiscan cardiolite DATE OF EXAM: 04/19/2020 COMPARISON: 12/23/2015 HISTORY: Chest pain, coronary artery disease TECHNIQUE: After the intravenous administration of 9.4 mCi Tc 99m Sestamibi - Cardiolite resting SPE CT images acquired 75 minutes post injection. The patient received 0.4mg Lexiscan, 24.8 mCi Tc 99m Sestamibi - Stress images obtained 210 minutes p ost injection FINDINGS: Review of stress and rest SPECT images demonstrates decreased uptake along the inferolateral left clay tricle on both stress and rest images, there is however, some decreased uptake along the inferolatera l left ventricle greater on stress images than on rest images. Gated analysis shows some questionabl e paradoxical wall motion with an estimated left ventricular ejection fraction of 51 %. IMPRESSION: Findings consistent with prior infarct along the inferior lateral left ventricle with chin-infarct ph armacologically induced left ventricular myocardial ischemia
[2020-04-19 18:09] LABS: Glucose,Whole Blood 172 mg/dL (75-99)
[2020-04-19] MEDS: SODIUM CHLORIDE 0.9% 1,000 ML IV SCH (18:11)
[2020-04-19 19:58] LABS: Glucose,Whole Blood 187 mg/dL (75-99)
--- NOTE | 2020-04-19 20:36 | P.HPIM ---
History of Present Illness H&P Date: 04/19/20 Chief Complaint: Chest pressure History of presenting complaint: This is a pleasant 69-year-old patient of Dr. Lesly Wong. 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 Chronic stable medical conditions include diabetes, hyperlipidemia, hypertension, rectal bleed with decreased vision, right renal transplant in 2008. Patient had a four-vessel coronary bypass in 2009. Patient was woken up in the early hours of the morning from a sleep rest chest pressure across the chest. Does no radiation. No dizziness no lightheadedness no perspiration or shortness of breath no nausea. Symptoms lasted for 30 minutes. Decided to come in for the same. Admitted with a diagnosis of unstable angina.. Cardiology was consulted. Past medical history to include: diabetes, hyperlipidemia, hypertension, rectal bleed with decreased vision, right renal transplant in 2008. Patient had a four-vessel coronary bypass in 2009. Review of systems: GEN.: Tired EYES: Decreased vision HEENT: None NECK: None RESPIRATORY: None CARDIOVASCULAR: As above GASTROINTESTINAL: None GENITOURINARY: None MUSCULOSKELETAL: None LYMPHATICS: None HEMATOLOGICAL: None PSYCHIATRY: None NEUROLOGICAL: None Social history: Patient has adult grandson at home but on September does highly functioning. Does use a cane. Patient started smoking as a teenager quit in 2000. No alcohol Physical examination: VITAL SIGNS: [97.7, 65, 18, 142/65, 95% room air] GENERAL: [BMI 33.8, laying bed slightly tired appearing]. EYES: [Pupils equal. Conjunctiva primo]l. HEENT: [External appearance of nose and ears normal, oral cavity grossly normal]. NECK: [JVD not raised; masses not palpable]. HEART: [First and second heart sounds are normal; no edema]. LUNGS:[ Respiratory rate normal; decreased breath sounds]. ABDOMEN: [Soft, nontender, liver spleen not palpable, no masses palpable]. PSYCH: [Alert and oriented x3; mood and affect primo]l. NEUROLOGICAL: [Cranial nerves grossly intact; no facial asymmetry, power and sensation grossly intact]. LYMPHATICS: [No lymph nodes palpable in the axilla and neck] INVESTIGATIONS, reviewed in the clinical context: White count 4 hemoglobin 10.8 potassium 4.9 bun 24 creatinine 1.21 EKG tracing personally reviewed by me-normal sinus rhythm intraventricular block and nonspecific T-wave changes Chest x-ray film personally reviewed by me-lung osborne clear 2-D echocardiogram wall motion abnormality, EF 50-55% Troponin I 3 negative Previous testing: Bun 38 creatinine 1.31 in November 2019 Assessment: -Unstable angina in a patient with known coronary artery disease -Coronary artery disease with prior history of bypass -Obesity BMI 33.8 -Coronary artery disease and history of bypass -Diabetes mellitus type 2 -Hyperlipidemia -Essential hypertension -Renal transplant in 2008 -Chronic kidney disease stage III Plan: Home medications were resumed. Cardiology was consulted. Stress test was ordered. Nephrology consultation was done. Late afternoon nuclear stress test came back showing reversible ischemia. Follow with cardiology. Patient is put on normal saline 50 mL an hour. Repeat labs in the morning. Past Medical History Past Medical History: Coronary Artery Disease (CAD), Diabetes Mellitus, Eye Disorder, Hyperlipidemia, Hypertension, Myocardial Infarction ([place]), Renal Disease, Skin Disorder Additional Past Medical History / Comment(s): R eye glaucoma, retinal bleed and little vision, renal failure Stage 3 - R renal transplant in 2008, UTIs with sepsis, Last Myocardial Infarction Date:: 2009 History of Any Multi-Drug Resistant Organisms: None Reported Past Surgical History: Appendectomy, Cholecystectomy, Coronary Bypass/CABG, Heart Catheterization, Hernia Repair, Hysterectomy Additional Past Surgical History / Comment(s): 2009 right kidney transplant, 4 v essel CABG in 2009, umbilical hernia repair, colonoscopies, silvia cataract removed, R eye laser surgeries. Past Anesthesia/Blood Transfusion Reactions: No Reported Reaction Additional Past Anesthesia/Blood Transfusion Reaction / Comment(s): unknown Past Psychological History: No Psychological Hx Reported Smoking Status: Former smoker Past Alcohol Use History: None Reported Past Drug Use History: None Reported - Past Family History Brother(s) Family Medical History: Cancer Mother Family Medical History: Coronary Artery Disease (CAD) Additional Family Medical History / Comment(s): mom had heart disease Father Family Medical History: Cancer Additional Family Medical History / Comment(s): lung and pancreatic cancer Medications and Allergies Home Medications Medication Instructions Recorded Confirmed Type Cholecalciferol [Vitamin D3 (25 1,000 unit PO BID 03/14/14 04/19/20 History Mcg = 1000 Iu)] Mycophenolate Sodium Dr [Myfortic] 360 mg PO BID 03/14/14 04/19/20 History INSULIN LISPRO (HumaLOG) [humaLOG] See Protocol SQ ACHS 03/21/16 04/19/20 History Tacrolimus [Prograf] 2 mg PO DAILY 09/13/17 04/19/20 History Isosorbide Mononitrate ER [Imdur] 30 mg PO DAILY 11/26/17 04/19/20 History Latanoprost Ophth [Xalatan 0.005%] 1 drop BOTH EYES HS 04/06/18 04/19/20 History Docusate [Colace] 100 mg PO DAILY 11/27/19 04/19/20 History Ferrous Sulfate [Iron (65 MG 325 mg PO HS 11/27/19 04/19/20 History Elemental)] Cetirizine HCl [Zyrtec] 10 mg PO DAILY 04/18/20 04/19/20 History Fluticasone Propionate [Flonase 1 spray EA NOSTRIL HS 04/18/20 04/19/20 History Allergy Relief] Insulin Glargine,Hum.rec.anlog 35 units SQ HS 04/18/20 04/19/20 History [Tojeremias Solnelsy] Magnesium Oxide 400 mg PO BID 04/18/20 04/19/20 History Tacrolimus [Prograf] 1 mg PO HS 04/18/20 04/19/20 History Allergies Allergy/AdvReac Type Severity Reaction Status Date / Time adhesive tape Allergy tears skin Verified 04/18/20 23:56 latex Allergy Unknown Verified 04/18/20 23:56 metoclopramide HCl Allergy Unknown Verified 04/18/20 23:56 [From Reglan] grapefruit [Grapefruit] AdvReac reaction Verified 04/18/20 23:56 with simvastatin ibuprofen AdvReac kidney Verified 04/18/20 23:56 failure/transplant ropinirole [From Requip] AdvReac LEG CRAMPS Verified 04/18/20 23:56 nupur Allergy Rash/Hives Uncoded 05/26/18 09:53 Physical Exam Vitals: Vital Signs Temp Pulse Pulse Resp BP BP BP 04/19/20 07:49 97.7 F 65 18 142/65 04/19/20 06:26 143/82 04/19/20 02:50 161/80 04/19/20 02:00 175/100 04/19/20 00:29 97.8 F 72 14 04/18/20 23:12 68 18 176/80 04/18/20 21:43 98 F 70 18 195/85 Pulse Ox 04/19/20 07:49 95 04/19/20 06:26 04/19/20 02:50 04/19/20 02:00 04/19/20 00:29 97 04/18/20 23:12 96 04/18/20 21:43 98 Intake and Output 04/18/20 04/19/20 04/19/20 22:59 06:59 14:59 Other: Voiding Method Toilet Toilet # Voids 2 Weight 99.79 kg 98 kg Results CBC & Chem 7: 04/18/20 21:57 04/18/20 21:57 Labs: Abnormal Lab Results - Last 24 Hours (Table) 04/18/20 Range/Units 21:57 Sodium 134 L (137-145) mmol/L BUN 24 H (7-17) mg/dL Creatinine 1.21 H (0.52-1.04) mg/dL Glucose 290 H (74-99) mg/dL Lipase 21 L (23-300) U/L Thrombosis Risk Factor Assmnt - Choose All That Apply Any of the Below Risk Factors Present?: Yes Each Factor Represents 1 point: Obesity (BMI >25) Other Risk Factors: Yes Each Risk Factor Represents 2 Points: Age 61-74 years Other congenital or acquired thrombophilia - If yes, enter type in comment: No Thrombosis Risk Factor Assessment Total Risk Factor Score: 3 Thrombosis Risk Factor Assessment Level: Moderate Risk
[2020-04-19] MEDS: ATORVASTATIN 40 MG TAB PO SCH (22:42)
[2020-04-19] MEDS: LATANOPROST 0.005% OPHTH DROPS 2.5 ML BTL BOTH EYES SCH (22:59)
[2020-04-20 05:54] LABS: Basophils # (A) 0.1 k/uL (0-0.2); Basophils % (A) 2 %; Eosinophils # (A) 0.4 k/uL (0-0.7); Eosinophils % (A) 10 %; HGB 13.3 gm/dL (11.4-16.0); Lymphocytes # (A) 1.1 k/uL (1.0-4.8); Lymphocytes % (A) 25 %; MCH 27.5 pg (25.0-35.0); MCHC 31.7 g/dL (31.0-37.0); MCV 86.7 fL (80.0-100.0); Mean Platelet Volume 7.9; Monocytes # (A) 0.3 k/uL (0-1.0); Monocytes % (A) 6 %; Neutrophils # (A) 2.3 k/uL (1.3-7.7); Neutrophils % (A) 54 %; Platelet Count 176 k/uL (150-450); RBC 4.84 m/uL (3.80-5.40); RDW 13.2 % (11.5-15.5); WBC 4.3 k/uL (3.8-10.6)
[2020-04-20 06:25] LABS: Potassium 4.4 mmol/L (3.5-5.1)
[2020-04-20 07:05] LABS: Glucose,Whole Blood 113 mg/dL (75-99)
[2020-04-20] MEDS: ASPIRIN 81 MG PO SCH (08:08)
[2020-04-20] MEDS: MAGNESIUM OXIDE 400 MG TAB PO SCH ×2 (08:08→19:53)
[2020-04-20] MEDS: TACROLIMUS 1 MG CAP PO SCH ×2 (08:08→19:54)
[2020-04-20] MEDS: METOPROLOL SUCCINATE (ER) 25 MG TAB.ER.24H PO SCH (08:09)
[2020-04-20] MEDS: ISOSORBIDE MONONITRATE ER 30 MG TAB.ER.24H PO SCH (08:09)
[2020-04-20] MEDS: MYCOPHENOLATE SODIUM DR 180 MG TABLET.DR PO SCH ×2 (08:09→19:53)
[2020-04-20] MEDS: INSULIN ASPART (NovoLOG) 100 UNIT/ML VIAL SQ SCH ×4 (08:10→19:54)
--- NOTE | 2020-04-20 10:14 | PN ---
PROGRESS NOTE Kayla is a 69-year-old lady with history of coronary artery disease status post prior CABG, who presented to hospital with chest pain and ruled out for myocardial infarction. She underwent a stress test that showed inferolateral myocardial infarction with areas of chin-infarct ischemia. At the time of my evaluation this morning, she appears comfortable at rest and is free of symptoms. The patient has history of kidney transplant and has mild renal insufficiency. I talked to her about undergoing cardiac catheterization. I last performed a cardiac cath on her 4 years ago and at that time, there was nothing that needed to be revascularized. The patient is somewhat reluctant to go through cardiac cath given her renal insufficiency and she wants input from Nephrology prior. On exam today, she is comfortable at rest. Vital signs are stable. There is no jugular venous distention. Chest exam reveals good air entry bilaterally. Heart exam reveals first and second heart sounds. No gallop. No murmur. No rub. Abdomen is soft, nontender. Exam of extremities did not reveal any edema. Peripheral pulses are felt. ASSESSMENT: 1. Precordial chest pain with abnormal stress test showing ischemia. 2. Coronary artery disease, status post coronary artery bypass grafting. 3. Chronic renal insufficiency. 4. History of renal transplant. PLAN: Patient will have Nephrology evaluation and if they think it is safe to go through cardiac catheterization, we will perform a catheterization on Wednesday. MMODL / IJN: [id number] /
[2020-04-20 12:09] LABS: Glucose,Whole Blood 244 mg/dL (75-99)
[2020-04-20] MEDS: SODIUM CHLORIDE 0.9% 1,000 ML IV SCH (12:40)
--- NOTE | 2020-04-20 12:58 | P.NPCON ---
History of Present Illness - Reason for Consult chronic renal failure - History of Present Illness Reason for consultation: Chronic kidney disease History of present illness: Patient is a 69-year-old female seen in consultation for chronic kidney disease. Patient received a living related renal allograft in 2008. Patient has chronic kidney disease stage III with baseline creatinine near 1.2. Renal function is at baseline. Patient presented to the hospital due to chest pain. Patient states the chest pain began evening. She states she took 2 doses of nitro with no significant relief and subsequently came to the hospital. She underwent stress test this admission which was suggestive of ischemia. Cardiac catheterization is being considered. She denies any active chest pain or short ness of breath. Denies vomiting or diarrhea. Admits to good urine output. No hematuria or dysuria. Echocardiogram revealed preserved ejection fraction. She is maintained on home immunosuppressive medications. Denies fever or chills. Hemodynamically stable. No edema. Vital signs are stable. General: The patient appeared well nourished and normally developed. HEENT: Head exam is unremarkable. Neck is without jugular venous distension. LUNGS: Lungs are clear to auscultation and percussion. Breath sounds decreased. HEART: Rate and Rhythm are regular. ABDOMEN: Soft, nontender. EXTREMITITES: No edema. Past Medical History Past Medical History: Coronary Artery Disease (CAD), Diabetes Mellitus, Eye Disorder, Hyperlipidemia, Hypertension, Myocardial Infarction ([place]), Renal Disease, Skin Disorder Additional Past Medical History / Comment(s): R eye glaucoma, retinal bleed and little vision, renal failure Stage 3 - R renal transplant in 2008, UTIs with sepsis, Last Myocardial Infarction Date:: 2009 History of Any Multi-Drug Resistant Organisms: None Reported Past Surgical History: Appendectomy, Cholecystectomy, Coronary Bypass/CABG, Heart Catheterization, Hernia Repair, Hysterectomy Additional Past Surgical History / Comment(s): 2009 right kidney transplant, 4 vessel CABG in 2010, umbilical hernia repair, colonoscopies, silvia cataract removed, R eye laser surgeries. Past Anesthesia/Blood Transfusion Reactions: No Reported Reaction Additional Past Anesthesia/Blood Transfusion Reaction / Comment(s): unknown Past Psychological History: No Psychological Hx Reported Smoking Status: Former smoker Past Alcohol Use History: None Reported Past Drug Use History: None Reported - Past Family History Brother(s) Family Medical History: Cancer Mother Family Medical History: Coronary Artery Disease (CAD) Additional Family Medical History / Comment(s): mom had heart disease Father Family Medical History: Cancer Additional Family Medical History / Comment(s): lung and pancreatic cancer Medications and Allergies Home Medications Medication Instructions Recorded Confirmed Type Cholecalciferol [Vitamin D3 (25 1,000 unit PO BID 03/14/14 04/19/20 History Mcg = 1000 Iu)] Mycophenolate Sodium Dr [Myfortic] 360 mg PO BID 03/14/14 04/19/20 History INSULIN LISPRO (HumaLOG) [humaLOG] See Protocol SQ ACHS 03/21/16 04/19/20 History Tacrolimus [Prograf] 2 mg PO DAILY 09/13/17 04/19/20 History Isosorbide Mononitrate ER [Imdur] 30 mg PO DAILY 11/26/17 04/19/20 History Latanoprost Ophth [Xalatan 0.005%] 1 drop BOTH EYES HS 04/06/18 04/19/20 History Docusate [Colace] 100 mg PO DAILY 11/27/19 04/19/20 History Ferrous Sulfate [Iron (65 MG 325 mg PO HS 11/27/19 04/19/20 History Elemental)] Cetirizine HCl [Zyrtec] 10 mg PO DAILY 04/18/20 04/19/20 History Fluticasone Propionate [Flonase 1 spray EA NOSTRIL HS 04/18/20 04/19/20 History Allergy Relief] Insulin Glargine,Hum.rec.anlog 35 units SQ HS 04/18/20 04/19/20 History [[place] Solostar] Magnesium Oxide 400 mg PO BID 04/18/20 04/19/20 History Tacrolimus [Prograf] 1 mg PO HS 04/18/20 04/19/20 History Allergies Allergy/AdvReac Type Severity Reaction Status Date / Time adhesive tape Allergy tears skin Verified 04/18/20 23:56 latex Allergy Unknown Verified 04/18/20 23:56 metoclopramide HCl Allergy Unknown Verified 04/18/20 23:56 [From Reglan] grapefruit [Grapefruit] AdvReac reaction Verified 04/18/20 23:56 with simvastatin ibuprofen AdvReac kidney Verified 04/18/20 23:56 failure/transplant ropinirole [From Requip] AdvReac LEG CRAMPS Verified 04/18/20 23:56 nupur Allergy Rash/Hives Uncoded 05/26/18 09:53 Physical Exam Vitals: Vital Signs Temp Pulse Resp BP BP Pulse Ox 04/20/20 11:37 97.8 F 59 L 16 129/76 97 04/20/20 11:05 16 04/20/20 08:00 97.3 F L 67 16 144/75 99 04/20/20 04:00 97.6 F 65 18 138/68 98 04/20/20 00:00 97.7 F 67 18 133/65 95 04/19/20 20:00 98 F 64 18 130/70 04/19/20 15:18 71 18 142/83 94 L 04/19/20 13:01 70 18 137/68 96 Intake and Output 04/19/20 04/20/20 04/20/20 22:59 06:59 14:59 Intake Total 300 250 Balance 300 250 Intake: Intake, IV Titration 250 Amount Sodium Chloride 0.9% 1, 250 000 ml @ 50 mls/hr IV . Q20H [facility] Rx#:[id number] Oral 300 0 Other: Voiding Method Toilet Toilet # Voids 1 1 Results - Lab Results Most recent lab results Calcium 9.0 mg/dL (8.4-10.2) 04/20/20 05:41 Magnesium 1.9 mg/dL (1.6-2.3) 04/18/20 21:57 04/20/20 05:41 04/20/20 05:41 Assessment and Plan Plan: Assessment: 1. Chronic kidney disease stage III with baseline creatinine near 1.2. GFR near baseline. 2. Status post living related renal allograft from 2008. 3. Chest pain with stress test showing ischemic changes. Cardiology following. 4. Insulin-dependent diabetes mellitus. Plan: Maintain IV fluids. I will increase the rate to 100 mL an hour 10 hours prior to cardiac catheterization. Avoid nephrotoxins. Continue to monitor renal function and urine output. Okay to proceed with cardiac catheterization from nephrology standpoint. Risk of worsening renal failure, including potential need for renal replacement therapy, post dye exposure was discussed with the patient. She understands. Check Prograf level. Thank you for the consultation. I will continue to follow the patient with you during her hospital stay.
[2020-04-20 16:54] LABS: Glucose,Whole Blood 165 mg/dL (75-99)
[2020-04-20 19:52] LABS: Glucose,Whole Blood 192 mg/dL (75-99)
[2020-04-20] MEDS: ATORVASTATIN 40 MG TAB PO SCH (19:53)
[2020-04-20] MEDS: LATANOPROST 0.005% OPHTH DROPS 2.5 ML BTL BOTH EYES SCH (19:54)
--- NOTE | 2020-04-20 20:41 | P.PN ---
Progress Note - Text Progress Note Date: 04/20/20 Chief Complaint: Chest pressure History of presenting complaint: This is a pleasant 69-year-old patient of Dr. Lesly Wong. 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 Chronic stable medical conditions include diabetes, hyperlipidemia, hypertension, rectal bleed with decreased vision, right renal transplant in 2008. Patient had a four-vessel coronary bypass in 2009. Patient was woken up in the early hours of the morning from a sleep rest chest pressure across the chest. Does no radiation. No dizziness no lightheadedness no perspiration or shortness of breath no nausea. Symptoms lasted for 30 minutes. Decided to come in for the same. Admitted with a diagnosis of unstable angina.. Nuclear stress test was positive. Today-sitting up in bed. Currently no chest pain. Awaiting cardiac catheterization-Wednesday Review of systems: Was done for constitutional, cardiovascular, GI, pulmonary. relevant finding as above Active Medications Aspirin (Aspirin) 81 mg PO DAILY [facility] Last Admin: 04/20/20 08:08 Dose: 81 mg Documented by: Atorvastatin Calcium (Lipitor) 40 mg PO [facility] Last Admin: 04/20/20 19:53 Dose: 40 mg Documented by: Sodium Chloride (Saline 0.9%) 1,000 mls @ 50 mls/hr IV .Q20H [facility] Last Admin: 04/20/20 12:40 Dose: 50 mls/hr Documented by: Sodium Chloride (Saline 0.9%) 1,000 mls @ 100 mls/hr IV .Q10H [facility] Stop: 04/23/20 00:00 Insulin Aspart (Novolog) 0 unit SQ ACHS [facility]; Protocol Last Admin: 04/20/20 19:54 Dose: 2 unit Documented by: Isosorbide Mononitrate (Imdur) 30 mg PO DAILY [facility] Last Admin: 04/20/20 08:09 Dose: 30 mg Documented by: Latanoprost (Xalatan 0.005%) 1 drops BOTH EYES [facility] Last Admin: 04/20/20 19:54 Dose: 1 drops Documented by: Magnesium Oxide (Mag-Ox) 400 mg PO BID [facility] Last Admin: 04/20/20 19:53 Dose: 400 mg Documented by: Metoprolol Succinate (Toprol Xl) 25 mg PO DAILY [facility] Last Admin: 04/20/20 08:09 Dose: 25 mg Documented by: Mycophenolate Sodium (Myfortic) 360 mg PO BID [facility] Last Admin: 04/20/20 19:53 Dose: 360 mg Documented by: Naloxone HCl (Narcan) 0.2 mg IV Q2M PRN PRN Reason: Opioid Reversal Tacrolimus (Prograf) 1 mg PO HS [facility] Last Admin: 04/20/20 19:54 Dose: 1 mg Documented by: Tacrolimus (Prograf) 2 mg PO DAILY [facility] Last Admin: 04/20/20 08:08 Dose: 2 mg Documented by: Physical examination: VITAL SIGNS: 97.8, 59, 16, 129/76, 97% on room air GENERAL: Sitting up, comfortable]. EYES: Pupils equal. Conjunctiva normal. HEENT: External appearance of nose and ears normal, oral cavity grossly normal. NECK: JVD not raised; masses not palpable. HEART: First and second heart sounds are normal; no edema. LUNGS: Respiratory rate normal; decreased breath sounds. ABDOMEN: Soft, nontender, liver spleen not palpable, no masses palpable. PSYCH: Alert and oriented x3; mood and affect normal. INVESTIGATIONS, reviewed in the clinical context: White count 4.3 hemoglobin 13.3 potassium 4.4 bun 23 creatinine 1.10 Previous testing White count 4 hemoglobin 10.8 potassium 4.9 bun 24 creatinine 1.21 EKG tracing personally reviewed by me-normal sinus rhythm intraventricular block and nonspecific T-wave changes Chest x-ray film personally reviewed by me-lung osborne clear 2-D echocardiogram wall motion abnormality, EF 50-55% Troponin I 3 negative Nuclear stress test-showing reversible ischemia Previous testing: Bun 38 creatinine 1.31 in November 2019 Assessment: -Unstable angina in a patient with known coronary artery disease-with a positive nuclear stress test -Coronary artery disease with prior history of bypass -Obesity BMI 33.8 -Coronary artery disease and history of bypass -Diabetes mellitus type 2 -Hyperlipidemia -Essential hypertension -Renal transplant in 2008 -Chronic kidney disease stage III Plan: Continue current medication treatment plan. Per cardiology cardiac catheterization Wednesday. Patient will get gentle hydration. Discussed with patient..
[2020-04-21 03:28] VITALS: RESP 16
[2020-04-21 06:01] LABS: Calcium 8.7 mg/dL (8.4-10.2); Magnesium 1.7 mg/dL (1.6-2.3); Potassium 4.7 mmol/L (3.5-5.1)
[2020-04-21 06:23] LABS: Glucose,Whole Blood 140 mg/dL (75-99)
[2020-04-21] MEDS: MYCOPHENOLATE SODIUM DR 180 MG TABLET.DR PO SCH ×2 (07:44→21:03)
[2020-04-21] MEDS: METOPROLOL SUCCINATE (ER) 25 MG TAB.ER.24H PO SCH (07:44)
[2020-04-21] MEDS: MAGNESIUM OXIDE 400 MG TAB PO SCH ×3 (07:45→20:57)
[2020-04-21] MEDS: ASPIRIN 81 MG PO SCH (07:45)
[2020-04-21] MEDS: ISOSORBIDE MONONITRATE ER 30 MG TAB.ER.24H PO SCH (07:45)
[2020-04-21] MEDS: TACROLIMUS 1 MG CAP PO SCH ×2 (07:45→21:03)
[2020-04-21] MEDS: SODIUM CHLORIDE 0.9% 1,000 ML IV SCH (07:46)
[2020-04-21] MEDS: INSULIN ASPART (NovoLOG) 100 UNIT/ML VIAL SQ SCH ×4 (07:46→20:57)
--- NOTE | 2020-04-21 08:56 | PN ---
PROGRESS NOTE Kayla is a 69-year-old lady with history of coronary artery disease status post CABG, status post kidney transplant, presented to hospital with chest pain and ruled out for myocardial infarction. She underwent a stress test that revealed areas of ischemia involving the inferolateral wall. Due to this, she was advised to undergo cardiac catheterization. She had been seen by Nephrology and she is going to be hydrated pre cardiac cath. Her previous cardiac catheterization was in 2016 and showed across the totally occluded LAD, moderate stenosis involving circumflex coronary artery with LIMA to LAD, occluded venous graft to diag, OM and the patent venous graft to the RCA. At that time, the patient was advised medical therapy. This morning, patient is doing well and is free of symptoms. On exam comfortable at rest. Vital signs are stable. There is no jugular venous distention. Chest exam reveals good air entry bilaterally. Heart exam reveals first and second heart sounds. No gallop. Has an ejection systolic murmur. Abdomen is soft. Exam of extremities did not reveal any edema. Peripheral pulses are felt. ASSESSMENT: 1. Precordial chest pain with abnormal stress test. 2. Chronic renal insufficiency. 3. Status post kidney transplant. PLAN: Patient will undergo cardiac catheterization tomorrow. She understands risks, benefits. The patient had a patent venous graft to the right coronary artery, occluded LAD with LIMA to LAD and occluded venous grafts to the diag and circ. MMODL / IJN: [id number] /
--- NOTE | 2020-04-21 10:47 | P.PN ---
Subjective Patient is seen in follow-up for chronic kidney disease and renal transplant management. GFR is at baseline. She denies any chest pain or shortness of breath. No vomiting or diarrhea. Scheduled for cardiac catheterization tomorrow. Vital signs are stable. General: The patient appeared well nourished and normally developed. HEENT: Head exam is unremarkable. Neck is without jugular venous distension. LUNGS: Lungs are clear to auscultation and percussion. Breath sounds decreased. HEART: Rate and Rhythm are regular. First and second heart sounds normal. ABDOMEN: Soft, nontender. EXTREMITITES: No clubbing, cyanosis, or edema. Objective - Vital Signs Vital signs: Vital Signs Temp 97.8 F 04/21/20 07:39 Pulse 65 04/21/20 08:00 Resp 16 04/21/20 08:00 BP 147/79 04/21/20 07:39 Pulse Ox 96 04/21/20 03:23 Intake & Output 04/20/20 04/21/20 04/21/20 18:59 06:59 18:59 Intake Total 545 800 240 Balance 545 800 240 Intake: Intake, IV Titration 200 Amount Sodium Chloride 0.9% 1, 200 000 ml @ 50 mls/hr IV . Q20H [facility] Rx#:[id number] Oral 545 600 240 Other: Voiding Method Toilet Toilet # Voids 2 1 - Labs CBC & Chem 7: 04/20/20 05:41 04/21/20 05:27 Labs: Abnormal Lab Results - Last 24 Hours (Table) 04/20/20 04/20/20 04/20/20 Range/Units 12:06 16:51 19:50 Chloride (98-107) mmol/L BUN (7-17) mg/dL Creatinine (0.52-1.04) mg/dL Glucose (74-99) mg/dL POC Glucose (mg/dL) 244 H 165 H 192 H (75-99) mg/dL 04/21/20 04/21/20 Range/Units 05:27 06:21 Chloride 108 H (98-107) mmol/L BUN 23 H (7-17) mg/dL Creatinine 1.10 H (0.52-1.04) mg/dL Glucose 152 H (74-99) mg/dL POC Glucose (mg/dL) 140 H (75-99) mg/dL Assessment and Plan Plan: Assessment: 1. Chronic kidney disease stage III with baseline creatinine near 1.2. GFR near baseline. 2. Status post living related renal allograft from 2008. 3. Chest pain with stress test showing ischemic changes. Cardiology following. 4. Insulin-dependent diabetes mellitus. Plan: Maintain IV fluids. I will increase the rate to 100 mL an hour 10 hours prior to cardiac catheterization. Avoid nephrotoxins. Continue to monitor renal function and urine output. Okay to proceed with cardiac catheterization from nephrology standpoint. Risk of worsening renal failure, including potential need for renal replacement therapy, post dye exposure was discussed with the patient. She understands. Follow-up Prograf level.
[2020-04-21 11:50] LABS: Glucose,Whole Blood 179 mg/dL (75-99)
--- NOTE | 2020-04-21 15:47 | P.PN ---
Progress Note - Text Progress Note Date: 04/21/20 Chief Complaint: Chest pressure History of presenting complaint: This is a pleasant 69-year-old patient of Dr. Lesly Wong. Follows with bd special education teacher Dr. Gregoroi Girard. Chronic stable medical conditions include diabetes, hyperlipidemia, hypertension, rectal bleed with decreased vision, right renal transplant in 2008. Patient had a four-vessel coronary bypass in 2009. Patient was woken up in the early hours of the morning from a sleep rest chest pressure across the chest. Does no radiation. No dizziness no lightheadedness no perspiration or shortness of breath no nausea. Symptoms lasted for 30 minutes. Decided to come in for the same. Admitted with a diagnosis of unstable angina.. Nuclear stress test was positive. Today-comfortable No chest pain. Awaiting cardiac catheterization tomorrow. Review of systems: Was done for constitutional, cardiovascular, GI, pulmonary. relevant finding as above Active Medications Aspirin (Aspirin) 81 mg PO DAILY [facility] Last Admin: 04/21/20 07:45 Dose: 81 mg Documented by: Atorvastatin Calcium (Lipitor) 40 mg PO [facility] Last Admin: 04/20/20 19:53 Dose: 40 mg Documented by: Sodium Chloride (Saline 0.9%) 1,000 mls @ 50 mls/hr IV .Q20H [facility] Last Admin: 04/21/20 07:46 Dose: 50 mls/hr Documented by: Sodium Chloride (Saline 0.9%) 1,000 mls @ 100 mls/hr IV .Q10H [facility] Stop: 04/23/20 00:00 Insulin Aspart (Novolog) 0 unit SQ ACHS [facility]; Protocol Last Admin: 04/21/20 12:01 Dose: 2 unit Documented by: Isosorbide Mononitrate (Imdur) 30 mg PO DAILY [facility] Last Admin: 04/21/20 07:45 Dose: 30 mg Documented by: Latanoprost (Xalatan 0.005%) 1 drops BOTH EYES [facility] Last Admin: 04/20/20 19:54 Dose: 1 drops Documented by: Magnesium Oxide (Mag-Ox) 400 mg PO BID [facility] Last Admin: 04/21/20 07:45 Dose: 400 mg Documented by: Metoprolol Succinate (Toprol Xl) 25 mg PO DAILY [facility] Last Admin: 04/21/20 07:44 Dose: 25 mg Documented by: Mycophenolate Sodium (Myfortic) 360 mg PO BID [facility] Last Admin: 04/21/20 07:44 Dose: 360 mg Documented by: Naloxone HCl (Narcan) 0.2 mg IV Q2M PRN PRN Reason: Opioid Reversal Tacrolimus (Prograf) 1 mg PO HS [facility] Last Admin: 04/20/20 19:54 Dose: 1 mg Documented by: Tacrolimus (Prograf) 2 mg PO DAILY [facility] Last Admin: 04/21/20 07:45 Dose: 2 mg Documented by: Physical examination: VITAL SIGNS: 97.9, 61, 16, 146/75, 98% room air GENERAL: Sitting up, comfortable. EYES: Pupils equal. Conjunctiva normal. HEENT: External appearance of nose and ears normal, oral cavity grossly normal. NECK: JVD not raised; masses not palpable. HEART: First and second heart sounds are normal; no edema. LUNGS: Respiratory rate normal; decreased breath sounds. ABDOMEN: Soft, nontender, liver spleen not palpable, no masses palpable. PSYCH: Alert and oriented x3; mood and affect normal. INVESTIGATIONS, reviewed in the clinical context: Potassium 4.7 creatinine 1.10 Previous testing White count 4 hemoglobin 10.8 potassium 4.9 bun 24 creatinine 1.21 EKG tracing personally reviewed by me-normal sinus rhythm intraventricular block and nonspecific T-wave changes Chest x-ray film personally reviewed by me-lung osborne clear 2-D echocardiogram wall motion abnormality, EF 50-55% Troponin I 3 negative Nuclear stress test-showing reversible ischemia Previous testing: Bun 38 creatinine 1.31 in November 2019 Assessment: -Unstable angina in a patient with known coronary artery disease-with a positive nuclear stress test -Coronary artery disease with prior history of bypass -Obesity BMI 33.8 -Coronary artery disease and history of bypass -Diabetes mellitus type 2 -Hyperlipidemia -Essential hypertension -Renal transplant in 2008 -Chronic kidney disease stage III Plan: -Gentle hydration to continue. Awaiting cardiac catheterization tomorrow. Discussed with the patient.
[2020-04-21 16:36] LABS: Glucose,Whole Blood 146 mg/dL (75-99)
[2020-04-21 20:36] LABS: Glucose,Whole Blood 168 mg/dL (75-99)
[2020-04-21] MEDS: ATORVASTATIN 40 MG TAB PO SCH (20:56)
[2020-04-21] MEDS: LATANOPROST 0.005% OPHTH DROPS 2.5 ML BTL BOTH EYES SCH (23:12)
[2020-04-22] MEDS ORDERED: SODIUM CHLORIDE 0.9% 1,000 ML IV SCH
[2020-04-22 06:30] LABS: Glucose,Whole Blood 142 mg/dL (75-99)
[2020-04-22] MEDS: SODIUM CHLORIDE 0.9% 1,000 ML IV SCH (06:42)
[2020-04-22 07:36] VITALS: BP 164/81; PULSE 61; TEMP 97.7
[2020-04-22] MEDS ORDERED: ASPIRIN 325 MG TAB PO STA (07:39)
[2020-04-22] MEDS ORDERED: NITROGLYCERIN SL TABS 0.4 MG TAB SUBLINGUAL PRN (07:39)
[2020-04-22] MEDS ORDERED: ALPRAZolam 0.5 MG TAB PO PRN (07:39)
[2020-04-22] MEDS ORDERED: SODIUM CHLORIDE 0.9% 1,000 ML in EMPTY BAG 1 BAG IV ONE (07:39)
[2020-04-22] MEDS ORDERED: ALPRAZolam 0.25 MG TAB PO PRN (07:39)
[2020-04-22] MEDS: INSULIN ASPART (NovoLOG) 100 UNIT/ML VIAL SQ SCH ×3 (07:46→17:08)
[2020-04-22] MEDS: ISOSORBIDE MONONITRATE ER 30 MG TAB.ER.24H PO SCH (07:49)
[2020-04-22] MEDS: MYCOPHENOLATE SODIUM DR 180 MG TABLET.DR PO SCH (07:49)
[2020-04-22] MEDS: TACROLIMUS 1 MG CAP PO SCH (07:49)
[2020-04-22] MEDS: METOPROLOL SUCCINATE (ER) 25 MG TAB.ER.24H PO SCH (07:51)
--- NOTE | 2020-04-22 09:19 | P.PN ---
Subjective Patient is seen in follow-up for chronic kidney disease and renal transplant management. GFR is at baseline. She denies any chest pain or shortness of breath. No vomiting or diarrhea. Scheduled for cardiac catheterization today. She is maintained on IV fluids. Vital signs are stable. General: The patient appeared well nourished and normally developed. HEENT: Head exam is unremarkable. Neck is without jugular venous distension. LUNGS: Lungs are clear to auscultation and percussion. Breath sounds decreased. HEART: Rate and Rhythm are regular. First and second heart sounds normal. ABDOMEN: Soft, nontender. EXTREMITITES: No clubbing, cyanosis, or edema. Objective - Vital Signs Vital signs: Vital Signs Temp 97.7 F 04/22/20 07:35 Pulse 61 04/22/20 07:35 Resp 16 04/22/20 07:35 BP 164/81 04/22/20 07:35 Pulse Ox 99 04/22/20 07:35 Intake & Output 04/21/20 04/22/20 04/22/20 18:59 06:59 18:59 Intake Total 2160 480 Balance 2160 480 Intake: Oral 960 480 Other 1200 Other: Voiding Method Toilet Toilet # Voids 1 - Labs CBC & Chem 7: 04/20/20 05:41 04/21/20 05:27 Labs: Abnormal Lab Results - Last 24 Hours (Table) 04/21/20 04/21/20 04/21/20 Range/Units 11:43 16:35 20:34 POC Glucose (mg/dL) 179 H 146 H 168 H (75-99) mg/dL 04/22/20 Range/Units 06:29 POC Glucose (mg/dL) 142 H (75-99) mg/dL Assessment and Plan Plan: Assessment: 1. Chronic kidney disease stage III with baseline creatinine near 1.2. GFR near baseline. 2. Status post living related renal allograft from 2008. 3. Chest pain with stress test showing ischemic changes. Cardiology following. 4. Insulin-dependent diabetes mellitus. Plan: Maintain IV fluids - Hep-Lock at 10 PM today. Avoid nephrotoxins. Continue to monitor renal function and urine output. Okay to proceed with cardiac catheterization from nephrology standpoint. Risk of worsening renal failure, including potential need for renal replacement therapy, post dye exposure was discussed with the patient. She understands. Prograf level 7.8.
--- NOTE | 2020-04-22 12:13 | P.PN ---
Subjective HISTORY OF PRESENTING ILLNESS This is a pleasant 69-year-old female past medical history significant for coronary artery disease s/p bypass grafting, hypertension, dyslipidemia, diabetes mellitus and renal transplantation. She follows in the office with Dr. Girard. She is seen and examined resting comfortably in bed in no acute distress . She has had no symptoms of chest pain. Denies shortness of breath, dizziness or palpitations. Blood pressure 164/81 heart rate 61 afebrile maintaining oxygen saturation on room air here he currently maintained on aspirin 81 mg daily, atorvastatin 40 mg at bedtime, Imdur 30 mg daily, Toprol 25 mg daily and Prograf. Telemetry tracings have been unremarkable. The patient was scheduled to undergo cardiac catheterization this morning with Dr. Girard secondary to an abnormal nuclear stress test. PHYSICAL EXAMINATION CONSTITUTIONAL: No apparent distress. Obese. HEENT: Head is normocephalic. Pupils are equal, round. Sclerae anicteric. Mucous membranes of the mouth are moist. No JVD. No carotid bruit. CHEST EXAMINATION: Lungs are clear to auscultation. No chest wall tenderness is noted on palpation or with deep breathing. HEART EXAMINATION: Regular rate and rhythm. S1, S2 heard. Systolic ejection murmur at the base and left sternal border, no gallops or rub. EXTREMITIES: 2+ peripheral pulses, no lower extremity edema and no calf tenderness. ASSESSMENT Chest pain. An acute coronary event has been ruled out. Ischecmic cardiomyopathy Coronary artery disease s/p bypass grafting Hypertension Dyslipidemia Diabetes mellitus Chronic renal failure s/p renal transplant PLAN Cathetereization has been delayed due to emergencies, given that she has been asymptomatic since admission, her case will be scheduled as an outpatient. Stable for discharge. Follow-up in the office with Dr. Girard the end of the week to schedule outpatient cardiac catheterization. Continue current medical regimen. Nurse Practitioner note has been reviewed, I agree with a documented findings and plan of care. Patient was seen and examined. Objective - Vital Signs Vital signs: Vital Signs Temp 97.7 F 04/22/20 07:35 Pulse 61 04/22/20 11:01 Resp 16 04/22/20 11:01 BP 164/81 04/22/20 07:35 Pulse Ox 99 04/22/20 07:35 Intake & Output 07/12/20 07/13/20 07/13/20 18:59 06:59 18:59 Intake Total 2160 480 Balance 2160 480 Intake: Oral 960 480 Other 1200 Other: Voiding Method Toilet Toilet Toilet # Voids 1 1 - Labs CBC & Chem 7: 04/20/20 05:41 04/21/20 05:27 Labs: Abnormal Lab Results - Last 24 Hours (Table) 04/21/20 04/21/20 04/22/20 Range/Units 16:35 20:34 06:29 POC Glucose (mg/dL) 146 H 168 H 142 H (75-99) mg/dL
--- NOTE | 2020-04-22 16:29 | P.DS ---
Providers Date of admission: 04/20/20 08:25 Attending physician: Jacobo Harris Consults: 04/19/20 00:00 Consult Physician Urgent Consulting Provider: [facility] Consult Reason/Comments: acute chest pain, possible acs, hx ascad with cabg Do you want consulting provider notified?: Yes 04/19/20 16:56 Consult Physician Routine Consulting Provider: Yoly Rosa Consult Reason/Comments: elevated BUN, Cr, known CKD Do you want consulting provider notified?: Yes Primary care physician: Joel Wong Hospital Course: Diagnoses: Chest pain with positive nuclear stress test, recommend outpatient cardiac cath Ischemic cardiomyopathy History of coronary artery disease status post bypass grafting Hypertension Hyperlipidemia Diabetes mellitus Chronic kidney disease Status post kidney transplant Hospital course: This is a pleasant 69-year-old female past medical history significant for coronary artery disease s/p bypass grafting, hypertension, dyslipidemia, diabetes mellitus and renal transplantation. She follows in the office with Dr. Girard. She is seen and examined resting comfortably in bed in no acute distress. She has had no symptoms of chest pain. Denies shortness of breath, dizziness or palpitations. Blood pressure 164/81 heart rate 61 afebrile maintaining oxygen saturation on room air here he currently maintained on aspirin 81 mg daily, atorvastatin 40 mg at bedtime, Imdur 30 mg daily, Toprol 25 mg daily and Prograf. Telemetry tracings have been unremarkable. The patient was scheduled to undergo cardiac catheterization this morning with Dr. Girard sec ondary to an abnormal nuclear stress test, however due to emergency it could not be done. And since she is been asymptomatic frickertron checker recommended to refer her for outpatient cardiac cath On the day of discharge she denies chest pain, no dyspnea, no abdominal pain, no change in urine or bowel habits. No fever Patient was cleared for discharge by frickertron checker and programmer or analyst Problems and management plan were discussed with the patient and he verbalized understanding and acceptance Patient was found stable and can be discharged home however he needs follow-up as an outpatient. Patient was instructed to follow up with PCP Dr. Wong within one week and patient agrees. Also patient was instructed to follow up with her frickertron checker Dr. Girard one week and she agrees with appointment made for her on 04/26 Gen: patient is a AAOx3, no distress CVS: S1-S2, RRR, no murmur Lungs: B/L CTA, no wheezing Abdomen: soft, no distention, no tenderness, positive bowel sounds Extremity: no leg edema or induration Time spent more than 35 minutes Patient Condition at Discharge: Stable Plan - Discharge Summary New Discharge Prescriptions: New Aspirin 81 mg PO DAILY #30 chew Atorvastatin [Lipitor] 40 mg PO HS #30 tab Nitroglycerin Sl Tabs [Nitrostat] 0.4 mg SUBLINGUAL Q5M PRN #20 tab PRN Reason: Chest Pain Metoprolol Succinate (ER) [Toprol XL] 25 mg PO DAILY #30 tab.er.24h Continue Mycophenolate Sodium Dr [Myfortic] 360 mg PO BID Cholecalciferol [Vitamin D3 (25 Mcg = 1000 Iu)] 1,000 unit PO BID INSULIN LISPRO (HumaLOG) [humaLOG] See Protocol SQ ACHS Tacrolimus [Prograf] 2 mg PO DAILY Isosorbide Mononitrate ER [Imdur] 30 mg PO DAILY Latanoprost Ophth [Xalatan 0.005%] 1 drop BOTH EYES HS Docusate [Colace] 100 mg PO DAILY Ferrous Sulfate [Iron (65 MG Elemental)] 325 mg PO HS Magnesium Oxide 400 mg PO BID Cetirizine HCl [Zyrtec] 10 mg PO DAILY Tacrolimus [Prograf] 1 mg PO HS Insulin Glargine,Hum.rec.anlog [Brooke Solnelsy] 35 units SQ HS Fluticasone Propionate [Flonase Allergy Relief] 1 spray EA NOSTRIL HS Discharge Medication List Cholecalciferol [Vitamin D3 (25 Mcg = 1000 Iu)] 1,000 unit PO BID 03/14/14 [History] Mycophenolate Sodium Dr [Myfortic] 360 mg PO BID 03/14/14 [History] INSULIN LISPRO (HumaLOG) [humaLOG] See Protocol SQ ACHS 03/21/16 [History] Tacrolimus [Prograf] 2 mg PO DAILY 09/13/17 [History] Isosorbide Mononitrate ER [Imdur] 30 mg PO DAILY 11/26/17 [History] Latanoprost Ophth [Xalatan 0.005%] 1 drop BOTH EYES HS 04/06/18 [History] Docusate [Colace] 100 mg PO DAILY 11/27/19 [History] Ferrous Sulfate [Iron (65 MG Elemental)] 325 mg PO HS 11/27/19 [History] Cetirizine HCl [Zyrtec] 10 mg PO DAILY 04/18/20 [History] Fluticasone Propionate [Flonase Allergy Relief] 1 spray EA NOSTRIL HS 04/18/20 [History] Insulin Glargine,Hum.rec.anlog [Toujeo Solostar] 35 units SQ HS 04/18/20 [History] Magnesium Oxide 400 mg PO BID 04/18/20 [History] Tacrolimus [Prograf] 1 mg PO HS 04/18/20 [History] Aspirin 81 mg PO DAILY #30 chew 04/22/20 [Rx] Atorvastatin [Lipitor] 40 mg PO HS #30 tab 04/22/20 [Rx] Metoprolol Succinate (ER) [Toprol XL] 25 mg PO DAILY #30 tab.er.24h 04/22/20 [Rx] Nitroglycerin Sl Tabs [Nitrostat] 0.4 mg SUBLINGUAL Q5M PRN #20 tab 04/22/20 [Rx] Follow up Appointment(s)/Referral(s): Joel Wong DO [Primary Care Provider] - 1-2 days Mauro Girard MD [STAFF PHYSICIAN] - 04/26/20 1:30 pm Patient Instructions/Handouts: *Surgery [facility] - After Heart Catheterization - Land Acquisition Manager Instructions Discharge Disposition: HOME SELF-CARE
[2020-04-22 17:06] LABS: Glucose,Whole Blood 225 mg/dL (75-99)
[2020-04-23] MEDS ORDERED: ASPIRIN 81 MG PO SCH (09:30)
--- NOTE | 2020-04-24 10:00 | CDI ---
Documentation Clarification Form Date: 04/24/20 From: Jessica Darnell Phone: If you have a question about this query, please contact Jessica Mackey, Beer Still Runner Compounder at [phone] between 8am and 5pm. Admit Date: 04/20/20 Discharge Date:04/22/20 Patient Name: Kayla Devine Visit Number: [id number] ATTENTION: The Clinical Documentation Specialists (CDI) and [facility] Coding Staff appreciate your assistance in clarifying documentation. Please respond to the clarification below the line at the bottom and electronically sign. The CDI & [facility] Coding staff will review the response and follow-up if needed. Please note: Queries are made part of the Legal Health Record. If you have any questions, please contact the author of this message via ITS. Dear Dr. Harris Conflicting documentation has been found in the medical record: Dr. Landers documented chest pain, an acute coronary event has been ruled out in the 04/[address] Wang documented chest pain with positive nuclear stress test recommend outpatient cardiac cath. You documented unstable angina with known coronary artery disease in the H&P and his 04/20-04/21 progress notes. History/Risk Factors: CAD with history of CABG, previous LA, ischemic cardiomyopathy, hypertension, DM, obesity Clinical Indicators: Pain in the mid-sternal chest Lab: Troponin <0.012, <0.012, <0.012 Stress Lexiscan: Findings consistent with prior infarct along with inferior lateral left ventricle with per-infarct pharmacologically induced left ventricular myocardial ischemia. Treatment: NS at 50 mls/hr, home meds, cardiology consult, recommend outpatient cardiac cath In your opinion, what is the most clinically appropriate diagnosis for this patient? CAD with unstable angina Chest Pain Other explanation of clinical findings Unable to determine (no explanation for clinical findings) CAD with possible unstable angina MTDD
== END 2020-04-22 18:01 | disposition home or self-care (01) | DRG 303 ==
LOC: EC 21:42 → 1SOBS 23:58 → OBSVTOIN 04-20 08:25
PROVIDERS: ADMIT Hospitalist; ATTEND Hospitalist
DX: I25.110 Atherosclerotic heart disease of native coronary artery with unstable angina pectoris (principal); Z94.0 Kidney transplant status; E11.22 Type 2 diabetes mellitus with diabetic chronic kidney disease; N18.3 Chronic kidney disease, stage 3 (moderate); E66.9 Obesity, unspecified; E78.5 Hyperlipidemia, unspecified; H54.7 Unspecified visual loss; I12.9 Hypertensive chronic kidney disease with stage 1 through stage 4 chronic kidney disease, or unspecified chronic kidney disease; I25.2 Old myocardial infarction; I25.5 Ischemic cardiomyopathy; I44.7 Left bundle-branch block, unspecified; H40.9 Unspecified glaucoma; R01.1 Cardiac murmur, unspecified; Z11.59 Encounter for screening for other viral diseases; Z68.33 Body mass index [BMI] 33.0-33.9, adult; Z79.4 Long term (current) use of insulin; Z79.82 Long term (current) use of aspirin; Z79.899 Other long term (current) drug therapy; Z95.1 Presence of aortocoronary bypass graft; Z90.710 Acquired absence of both cervix and uterus; Z87.891 Personal history of nicotine dependence; Z87.440 Personal history of urinary (tract) infections; Z88.6 Allergy status to analgesic agent; Z91.040 Latex allergy status; Z88.8 Allergy status to other drugs, medicaments and biological substances; Z91.018 Allergy to other foods; Z90.49 Acquired absence of other specified parts of digestive tract; Z98.42 Cataract extraction status, left eye; Z98.41 Cataract extraction status, right eye; Z82.49 Family history of ischemic heart disease and other diseases of the circulatory system; Z80.0 Family history of malignant neoplasm of digestive organs; Z80.1 Family history of malignant neoplasm of trachea, bronchus and lung
CPT/HCPCS: 36415; 71046; 78452; 80048; 80053; 80061; 80197; 83690; 83735; 83880; 84484; 85025; 85610; 85730; 93005; 93017; 93306; 99285

== ENCOUNTER 2020-05-03 06:02 | Day surgery (SDC) | payer MEDICARE ==
[2020-05-01 16:10] VITALS: BMI 34.4
[~2020-05-03 06:02] MED LIST changes: +ALPRAZolam 0.25 MG TAB PO PRN; +ALPRAZolam 0.5 MG TAB PO PRN; -LACTATED RINGERS 1,000 ML IV SCH; +NITROGLYCERIN SL TABS 0.4 MG TAB SUBLINGUAL PRN; +SODIUM CHLORIDE 0.9% 1,000 ML in EMPTY BAG 1 BAG IV ONE
[2020-05-03 06:27] LABS: Glucose,Whole Blood 171 mg/dL (75-99)
[2020-05-03 06:36] VITALS: RESP 16; TEMP 98
[2020-05-03] MEDS ORDERED: ATORVASTATIN 80 MG TAB PO ONE (07:00)
[2020-05-03] MEDS ORDERED: LIDOCAINE 1% INJ 10MG/ML (20 ML MDV) SQ ONE (07:47)
[2020-05-03] MEDS ORDERED: MIDAZOLAM 2 MG/2 ML VIAL IV ONE (07:48)
[2020-05-03] MEDS ORDERED: fentaNYL (PF) 50 MCG/ML 2 ML AMP IV ONE (07:48)
[2020-05-03] MEDS ORDERED: IOPAMIDOL-370 100ML BTL INJ ONE ×2 (08:01→08:22)
[2020-05-03] MEDS ORDERED: RX INFO: IV CONTRAST WAS GIVEN 1 EACH MISC MISCELLANE PRN (08:29)
[2020-05-03] MEDS ORDERED: SODIUM CHLORIDE 0.9% 1,000 ML IV SCH (08:30)
--- NOTE | 2020-05-03 10:31 | CC ---
CARDIAC CATHETERIZATION REPORT INDICATION: Chest pain with abnormal stress test in a patient with known CAD, status post prior bypass. Patient has known RIVERA to LAD, venous graft to diagonal, venous graft to OM and venous graft to RCA. At her previous cardiac catheterization in 2016, her RIVERA was thought to be atretic and could not be documented. Venous graft to diagonal was closed and venous graft to OM with heart post close, the venous graft to the right coronary artery was patent. PROCEDURE NOTE: After obtaining informed consent, left heart catheterization, coronary angiogram and selective injection of the bypass grafts is performed via the right femoral artery using standard Kamille catheters. The patient tolerated the procedure well without any obvious immediate complications. Received moderate conscious sedation. Total sedation time was 30 minutes. FINDINGS: HEMODYNAMICS: Left ventricular end-diastolic pressure is 12 mm. There is no significant gradient across aortic valve. LEFT VENTRICULOGRAM: Left ventriculogram is not performed #3. ANGIOGRAPHIC DATA: 1. LEFT MAIN CORONARY ARTERY: Left main coronary artery appears calcified but is free of calcified but is free of significant stenosis. Divides into left anterior descending coronary artery and circumflex coronary artery. 2. LEFT ANTERIOR DESCENDING CORONARY ARTERY: LAD shows competitive flow disease distally insert in the in the LAD with retrograde filling of the RIVERA suggestive of an atretic RIVERA. There is what happened. 3. The circumflex coronary artery shows a 40% to 50% stenosis next right coronary artery was occluded on the previous cath we did not write to DOS admitted on this admission selective injection of the bypass grafts RIVERA to LAD. We have not attempted to obtain the selective images we could not locate on the previous cath and does not want to give too much dye to the patient. 4. Venous graft to the right coronary artery appears patent. Proximal and distal anastomotic sites are free of disease and the [place] right coronary artery is free of significant disease. 5. Venous graft to the OM was located on this catheterization shows mild to moderate disease proximally next venous graft to the diagonal was occluded on a previous catheterization. CONCLUSION: 1. [place] 3 vessel coronary artery disease with patent diagonal graft to the right coronary artery. 2. Patient did not have any significant progression of [place] circumflex coronary artery disease and does not need any another attempt at revascularization. 3. I reviewed angiographic data with Dr. Cardona, the on-call lead recreation assistant. We will treat the patient medically at this time and if she has she continues to have symptoms, he will perform angioplasty of the [place] circumflex coronary artery to try to minimize the use of dyes. This patient who had renal transplant and has a low GFR and will hydrate her afterwards. RACHELLE / ELVIA: [id number] /
[2020-05-03 11:37] VITALS: BP 184/88; PULSE 56
== END 2020-05-03 15:06 | disposition home or self-care (01) ==
LOC: CATHCVL 06:02
PROVIDERS: ATTEND Internal Medicine Cardiovascular Disease
DX: I25.810 Atherosclerosis of coronary artery bypass graft(s) without angina pectoris (principal); I25.10 Atherosclerotic heart disease of native coronary artery without angina pectoris; R07.9 Chest pain, unspecified; R06.02 Shortness of breath; E78.2 Mixed hyperlipidemia; E11.9 Type 2 diabetes mellitus without complications; I10 Essential (primary) hypertension; Z72.0 Tobacco use; Z79.899 Other long term (current) drug therapy; Z79.82 Long term (current) use of aspirin; Z79.4 Long term (current) use of insulin; Z91.018 Allergy to other foods; Z88.6 Allergy status to analgesic agent; Z94.0 Kidney transplant status
CPT/HCPCS: 93459; C1769 ×3; C1894; J2250; J2001; J3010; Q9967

== ENCOUNTER 2020-07-07 08:05 | Inpatient (IN) | payer MEDICARE ==
--- NOTE | 2020-07-07 08:29 | ED ---
Arrhythmia/Palpitations HPI - General Chief Complaint: Arrhythmia/Palpitations Stated Complaint: low pulse Time Seen by Provider: 07/07/20 08:27 Source: patient, RN notes reviewed, old records reviewed Mode of arrival: wheelchair Limitations: no limitations - History of Present Illness Initial Comments: This is a 69-year-old female DF for evaluation today. Today she is presenting for evaluation regards to not feeling well. Patient wasn't feeling well after she woke up this this morning with the bathroom a few times last night was doing her morning routine took her blood pressure no history of heart rate was in the 40s and the factt hat she wasn't feeling well she presents to the emergency department today. Patient has no recent change in medications and no other complaints MD Complaint: irregular heart beat (slow HR) -: unknown Context: awoke with symptoms Associated Symptoms: paresthesias Treatments Prior to Arrival: other (none, patient did have recent heart catheterization) - Related Data Home Medications Medication Instructions Recorded Confirmed Cholecalciferol [Vitamin D3 (25 1,000 unit PO BID 03/14/14 05/03/20 Mcg = 1000 Iu)] Mycophenolate Sodium Dr [Myfortic] 360 mg PO BID 03/14/14 05/03/20 INSULIN LISPRO (HumaLOG) [humaLOG] See Protocol SQ ACHS 03/21/16 05/03/20 Tacrolimus [Prograf] 2 mg PO DAILY 09/13/17 05/03/20 Isosorbide Mononitrate ER [Imdur] 30 mg PO DAILY 11/26/17 05/03/20 Latanoprost Ophth [Xalatan 0.005%] 1 drop BOTH EYES 04/06/18 05/03/20 Docusate [Colace] 100 mg PO DAILY 11/27/19 05/03/20 Ferrous Sulfate [Iron (65 MG 325 mg PO Q2D 11/27/19 05/03/20 Elemental)] Cetirizine HCl [Zyrtec] 10 mg PO DAILY 04/18/20 05/03/20 Fluticasone Propionate [Flonase 1 spray EA NOSTRIL HS 04/18/20 05/03/20 Allergy Relief] Insulin Glargine,Hum.rec.anlog 25 units SQ 04/18/20 05/03/20 [Toujeo Solostar] Magnesium Oxide 400 mg PO BID 04/18/20 05/03/20 Tacrolimus [Prograf] 1 mg PO HS 04/18/20 05/03/20 Previous Rx's Medication Instructions Recorded Aspirin 81 mg PO DAILY #30 chew 04/22/20 Atorvastatin [Lipitor] 40 mg PO HS #30 tab 04/22/20 Metoprolol Succinate (ER) [Toprol 25 mg PO DAILY #30 tab.er.24h 04/22/20 XL] Nitroglycerin Sl Tabs [Nitrostat] 0.4 mg SUBLINGUAL Q5M PRN #20 tab 04/22/20 Allergies Allergy/AdvReac Type Severity Reaction Status Date / Time adhesive tape Allergy tears skin Verified 07/07/20 08:16 metoclopramide HCl Allergy Unknown Verified 07/07/20 08:16 [From Reglan] grapefruit [Grapefruit] AdvReac reaction Verified 07/07/20 08:16 with simvastatin ibuprofen AdvReac kidney Verified 07/07/20 08:16 failure/transplant ropinirole [From Requip] AdvReac LEG CRAMPS Verified 07/07/20 08:16 nupur Allergy Rash/Hives Uncoded 07/07/20 08:16 Review of Systems ROS Statement: Those systems with pertinent positive or pertinent negative responses have been documented in the HPI. ROS Other: All systems not noted in ROS Statement are negative. Past Medical History Past Medical History: Coronary Artery Disease (CAD), Diabetes Mellitus, Eye Disorder, Hyperlipidemia, Hypertension, Myocardial Infarction ([place]), Renal Disease, Skin Disorder Additional Past Medical History / Comment(s): R eye glaucoma, retinal bleed and little vision, renal failure Stage 3 - R renal transplant in 2008, UTIs with sepsis, just d/c last Wednesday from [facility]-was having chest pressure per pt. Last Myocardial Infarction Date:: 2009 History of Any Multi-Drug Resistant Organisms: None Reported Past Surgical History: Appendectomy, Cholecystectomy, Coronary Bypass/CABG, Heart Catheterization, Hernia Repair, Hysterectomy Additional Past Surgical History / Comment(s): 2009 right kidney transplant, 4 vessel CABG in 2009, umbilical hernia repair, colonoscopies, silvia cataract removed, R eye laser surgeries. Past Anesthesia/Blood Transfusion Reactions: No Reported Reaction Additional Past Anesthesia/Blood Transfusion Reaction / Comment(s): unknown Past Psychological History: No Psychological Hx Reported Smoking Status: Former smoker Past Alcohol Use History: None Reported Past Drug Use History: None Reported - Past Family History Brother(s) Family Medical History: Cancer Mother Family Medical History: Coronary Artery Disease (CAD) Additional Family Medical History / Comment(s): mom had heart disease Father Family Medical History: Cancer Additional Family Medical History / Comment(s): lung and pancreatic cancer General Exam Limitations: no limitations General appearance: alert, in no apparent distress, anxious Head exam: Present: atraumatic, normocephalic, normal inspection Eye exam: Present: normal appearance, PERRL, EOMI. Absent: scleral icterus, conjunctival injection, periorbital swelling ENT exam: Present: normal exam, mucous membranes moist Neck exam: Present: normal inspection. Absent: tenderness, meningismus, lymphadenopathy Respiratory exam: Present: normal lung sounds bilaterally. Absent: respiratory distress, wheezes, rales, rhonchi, stridor Cardiovascular Exam: Present: normal rhythm, bradycardia, normal heart sounds. Absent: systolic murmur, diastolic murmur, rubs, gallop, clicks GI/Abdominal exam: Present: soft, normal bowel sounds. Absent: distended, tenderness, guarding, rebound, rigid Extremities exam: Present: normal inspection, full ROM, normal capillary refill. Absent: tenderness, pedal edema, joint swelling, calf tenderness Back exam: Present: normal inspection Neurological exam: Present: alert, oriented X3, CN II-XII intact Psychiatric exam: Present: normal affect, normal mood Skin exam: Present: warm, dry, intact, normal color. Absent: rash Course Vital Signs 07/07/20 07/07/20 07/07/20 08:13 08:39 08:46 Temperature 99.3 F 100.1 F H Pulse Rate 42 L 42 L Pulse Rate [ 41 L Energy Systems Engineer ] Respiratory 16 17 Rate Blood Pressure 138/74 109/59 O2 Sat by Pulse 97 97 Oximetry 07/07/20 10:00 Temperature 98.9 F Pulse Rate 38 L Pulse Rate [ Energy Systems Engineer ] Respiratory 8 L Rate Blood Pressure 109/59 O2 Sat by Pulse 95 Oximetry - Reevaluation(s) Reevaluation #1: 07/07/20 09:14 Medical record is reviewed Reevaluation #2: 07/07/20 09:15 Patient remains without chest pain Reevaluation #3: 07/07/20 09:15 Patient informed results and questions are answered Reevaluation #4: 07/07/20 09:15 Patient's R remains low blood pressure remains stable - Consultations Consultation #1: Spoke with Dr. Mathews who did evaluate patient here in the ER Consultation #2: Spoke with [facility] who agreed to admit this patient EKG Findings - EKG Comments: EKG Findings:: EKG is bradycardia of 42 QRS 104 QTc 387 Medical Decision Making - Medical Decision Making 69 female DF for evaluation, nonspecific symptoms, relative and generalized weakness. Low heart rate, patient was admitted for symptomatically bradycardia - Lab Data Result diagrams: 07/07/20 08:58 07/07/20 08:58 Lab Results 07/07/20 07/07/20 07/07/20 Range/Units 08:58 08:58 08:58 WBC 6.5 (3.8-10.6) k/uL RBC 4.61 (3.80-5.40) m/uL Hgb 13.4 (11.4-16.0) gm/dL Hct 39.7 (34.0-46.0) % MCV 86.2 (80.0-100.0) fL MCH 29.1 (25.0-35.0) pg MCHC 33.8 (31.0-37.0) g/dL RDW 13.2 (11.5-15.5) % Plt Count 186 (150-450) k/uL Neutrophils % 63 % Lymphocytes % 21 % Monocytes % 8 % Eosinophils % 4 % Basophils % 1 % Neutrophils # 4.1 (1.3-7.7) k/uL Lymphocytes # 1.3 (1.0-4.8) k/uL Monocytes # 0.5 (0-1.0) k/uL Eosinophils # 0.3 (0-0.7) k/uL Basophils # 0.1 (0-0.2) k/uL PT 9.8 (9.0-12.0) sec INR 0.9 (<1.2) APTT 21.8 L (22.0-30.0) sec Sodium 133 L (137-145) mmol/L Potassium 4.9 (3.5-5.1) mmol/L Chloride 98 (98-107) mmol/L Carbon Dioxide 28 (22-30) mmol/L Anion Gap 7 mmol/L BUN 37 H (7-17) mg/dL Creatinine 1.56 H (0.52-1.04) mg/dL Est GFR (CKD-EPI)AfAm 38 (>60 ml/min/1.73 sqM) Est GFR (CKD-EPI)NonAf 33 (>60 ml/min/1.73 sqM) Glucose 269 H (74-99) mg/dL Plasma Lactic Acid Silvino (0.7-2.0) mmol/L Calcium 9.0 (8.4-10.2) mg/dL Phosphorus 3.4 (2.5-4.5) mg/dL Magnesium 2.0 (1.6-2.3) mg/dL Total Bilirubin 0.8 (0.2-1.3) mg/dL AST 22 (14-36) U/L ALT 17 (4-34) U/L Alkaline Phosphatase 93 (38-126) U/L Creatine Kinase 46 (30-135) U/L Troponin I (0.000-0.034) ng/mL Total Protein 6.9 (6.3-8.2) g/dL Albumin 3.7 (3.5-5.0) g/dL TSH 6.480 H (0.465-4.680) mIU/L 07/07/20 07/07/20 Range/Units 08:58 08:58 WBC (3.8-10.6) k/uL RBC (3.80-5.40) m/uL Hgb (11.4-16.0) gm/dL Hct (34.0-46.0) % MCV (80.0-100.0) fL MCH (25.0-35.0) pg MCHC (31.0-37.0) g/dL RDW (11.5-15.5) % Plt Count (150-450) k/uL Neutrophils % % Lymphocytes % % Monocytes % % Eosinophils % % Basophils % % Neutrophils # (1.3-7.7) k/uL Lymphocytes # (1.0-4.8) k/uL Monocytes # (0-1.0) k/uL Eosinophils # (0-0.7) k/uL Basophils # (0-0.2) k/uL PT (9.0-12.0) sec INR (<1.2) APTT (22.0-30.0) sec Sodium (137-145) mmol/L Potassium (3.5-5.1) mmol/L Chloride (98-107) mmol/L Carbon Dioxide (22-30) mmol/L Anion Gap mmol/L BUN (7-17) mg/dL Creatinine (0.52-1.04) mg/dL Est GFR (CKD-EPI)AfAm (>60 ml/min/1.73 sqM) Est GFR (CKD-EPI)NonAf (>60 ml/min/1.73 sqM) Glucose (74-99) mg/dL Plasma Lactic Acid Silvino 1.1 (0.7-2.0) mmol/L Calcium (8.4-10.2) mg/dL Phosphorus (2.5-4.5) mg/dL Magnesium (1.6-2.3) mg/dL Total Bilirubin (0.2-1.3) mg/dL AST (14-36) U/L ALT (4-34) U/L Alkaline Phosphatase (38-126) U/L Creatine Kinase (30-135) U/L Troponin I 0.049 H* (0.000-0.034) ng/mL Total Protein (6.3-8.2) g/dL Albumin (3.5-5.0) g/dL TSH (0.465-4.680) mIU/L - Radiology Data Radiology results: report reviewed (Chest x-rays negative for acute disease), image reviewed Critical Care Time Critical Care Time: Yes Total Critical Care Time: 31 Disposition Clinical Impression: Palpitations, Bradycardia, Weakness Disposition: ADMITTED IP TO THIS [facility] Condition: Serious Is patient prescribed a controlled substance at d/c from ED?: No Referrals: Joel Wong DO [Primary Care Provider] - 1-2 days
--- NOTE | 2020-07-07 09:08 | P.CRDCN ---
History of Present Illness Consult date: 07/07/20 Chief complaint: Generalized weakness and fatigue History of present illness: This is a pleasant 69-year-old female patient with extensive cardiovascular history. The patient doesn't follow with Dr. Girard in the office on regular basis. She does have coronary artery disease where in 2009 she underwent coronary artery bypass grafting with RIVERA to LAD, SVG to OM, and SVG to RCA. Beside that in 2008 the patient underwent renal transplant. She was admitted to the hospital recently with a chest discomfort and ruled out for acute coronary event. She underwent a heart catheterization by Dr. Pandey and that point the heart catheterization revealed severe triple-vessel coronary artery disease was extremely calcified arteries with patent RIVERA to LAD and mild to moderate disease involving the graft to the left circumflex as well as patent graft to the right coronary artery. At that point maximize medical treatment was advised. The patient was in her usual state of health until yesterday when she woke up from sleep not feeling well. She felt tired and she felt weak. No chest pain or chest discomfort nor shortness of breath. No dizziness or lightheadedness and no loss of consciousness or syncope. She checked her blood pressure and heart rate. The pressure was within normal limits but her heart rate was in the 40s and because of that she decided to come to the emergency department. She continues to be bradycardic throughout her hospital stay in the emergency department. The EKG showed what it seems to be junctional rhythm with a heart rate in the 40s. Please note that the patient was on AV chucky francine agents was metoprolol at home. Currently this medication is on hold. The rest of her blood work including the cardiac enzymes as well as a CBC and BMP are still pending. The patient currently is hemodynamically stable with a normal blood pressure except for the heart rate which continues to be in the 40s. She is in process of getting a chest x-ray as well as a blood work. I recommended monitoring the patient for additional 24 hours and avoiding any AV chucky francine agents at this point. She underwent an echocardiogram from her previous admission and that revealed an ejection fraction between 50-55%. Past Medical History Past Medical History: Coronary Artery Disease (CAD), Diabetes Mellitus, Eye Disorder, Hyperlipidemia, Hypertension, Myocardial Infarction ([place]), Renal Disease, Skin Disorder Additional Past Medical History / Comment(s): R eye glaucoma, retinal bleed and little vision, renal failure Stage 3 - R renal transplant in 2008, UTIs with sepsis, just d/c last Wednesday from [facility]-was having chest pressure per pt. Last Myocardial Infarction Date:: 2009 History of Any Multi-Drug Resistant Organisms: None Reported Past Surgical History: Appendectomy, Cholecystectomy, Coronary Bypass/CABG, Heart Catheterization, Hernia Repair, Hysterectomy Additional Past Surgical History / Comment(s): 2009 right kidney transplant, 4 vessel CABG in 2009, umbilical hernia repair, colonoscopies, silvia cataract removed, R eye laser surgeries. Past Anesthesia/Blood Transfusion Reactions: No Reported Reaction Additional Past Anesthesia/Blood Transfusion Reaction / Comment(s): unknown Past Psychological History: No Psychological Hx Reported Smoking Status: Former smoker Past Alcohol Use History: None Reported Past Drug Use History: None Reported - Past Family History Brother(s) Family Medical History: Cancer Mother Family Medical History: Coronary Artery Disease (CAD) Additional Family Medical History / Comment(s): mom had heart disease Father Family Medical History: Cancer Additional Family Medical History / Comment(s): lung and pancreatic cancer Medications and Allergies Home Medications Medication Instructions Recorded Confirmed Type Cholecalciferol [Vitamin D3 (25 1,000 unit PO BID 03/14/14 05/03/20 History Mcg = 1000 Iu)] Mycophenolate Sodium Dr [Myfortic] 360 mg PO BID 03/14/14 05/03/20 History INSULIN LISPRO (HumaLOG) [humaLOG] See Protocol SQ [facility] 03/21/16 05/03/20 History Tacrolimus [Prograf] 2 mg PO DAILY 09/13/17 05/03/20 History Isosorbide Mononitrate ER [Imdur] 30 mg PO DAILY 11/26/17 05/03/20 History Latanoprost Ophth [Xalatan 0.005%] 1 drop BOTH EYES 04/06/18 05/03/20 History Docusate [Colace] 100 mg PO DAILY 11/27/19 05/03/20 History Ferrous Sulfate [Iron (65 MG 325 mg PO Q2D 11/27/19 05/03/20 History Elemental)] Cetirizine HCl [Zyrtec] 10 mg PO DAILY 04/18/20 05/03/20 History Fluticasone Propionate [Flonase 1 spray EA NOSTRIL HS 04/18/20 05/03/20 History Allergy Relief] Insulin Glargine,Hum.rec.anlog 25 units SQ HS 04/18/20 05/03/20 History [Brooke Helmostyovany] Magnesium Oxide 400 mg PO BID 04/18/20 05/03/20 History Tacrolimus [Prograf] 1 mg PO HS 04/18/20 05/03/20 History Aspirin 81 mg PO DAILY #30 chew 04/22/20 05/03/20 Rx Atorvastatin [Lipitor] 40 mg PO HS #30 tab 04/22/20 05/03/20 Rx Metoprolol Succinate (ER) [Toprol 25 mg PO DAILY #30 tab.er.24h 04/22/20 05/03/20 Rx XL] Nitroglycerin Sl Tabs [Nitrostat] 0.4 mg SUBLINGUAL Q5M PRN #20 tab 04/22/20 05/01/20 Rx Allergies Allergy/AdvReac Type Severity Reaction Status Date / Time adhesive tape Allergy tears skin Verified 07/07/20 08:16 metoclopramide HCl Allergy Unknown Verified 07/07/20 08:16 [From Reglan] grapefruit [Grapefruit] AdvReac reaction Verified 07/07/20 08:16 with simvastatin ibuprofen AdvReac kidney Verified 07/07/20 08:16 failure/transplant ropinirole [From Requip] AdvReac LEG CRAMPS Verified 07/07/20 08:16 nupur Allergy Rash/Hives Uncoded 07/07/20 08:16 Physical Exam Vitals: Vital Signs Temp Pulse Pulse Resp BP Pulse Ox 07/07/20 08:46 41 L 07/07/20 08:39 100.1 F H 42 L 17 109/59 97 07/07/20 08:13 99.3 F 42 L 16 138/74 97 Intake and Output 07/06/20 07/07/20 07/07/20 22:59 06:59 14:59 Other: Weight 104.326 kg - Constitutional General appearance: no acute distress - Respiratory Respiratory: bilateral: CTA - Cardiovascular Rhythm: regular Heart sounds: normal: S1, S2 Results Intake and Output 07/06/20 07/07/20 07/07/20 22:59 06:59 14:59 Other: Weight 104.326 kg Patient Weight 07/08/20 06:59 Weight 104.326 kg Assessment and Plan Assessment: Assessment #1 symptomatic bradycardia #2 junctional rhythm #3 coronary artery disease as described above #4 history of renal transplant #5 multiple comorbid conditions Plan #1 hold any AV chucky francine agents #2 hold metoprolol #3 rule out acute coronary event. We'll obtain serial cardiac enzymes #4 rule out thyroid disorder. We'll check a TSH and free T4 #5 follow-up with the patient
[2020-07-07 09:18] LABS: Basophils # (A) 0.1 k/uL (0-0.2); Basophils % (A) 1 %; Eosinophils # (A) 0.3 k/uL (0-0.7); Eosinophils % (A) 4 %; HCT 39.7 % (34.0-46.0); HGB 13.4 gm/dL (11.4-16.0); Lymphocytes # (A) 1.3 k/uL (1.0-4.8); Lymphocytes % (A) 21 %; MCH 29.1 pg (25.0-35.0); MCHC 33.8 g/dL (31.0-37.0); MCV 86.2 fL (80.0-100.0); Mean Platelet Volume 8.6; Monocytes # (A) 0.5 k/uL (0-1.0); Monocytes % (A) 8 %; Neutrophils # (A) 4.1 k/uL (1.3-7.7); Neutrophils % (A) 63 %; Platelet Count 186 k/uL (150-450); RBC 4.61 m/uL (3.80-5.40); RDW 13.2 % (11.5-15.5); WBC 6.5 k/uL (3.8-10.6)
[2020-07-07 09:35] LABS: Albumin 3.7 g/dL (3.5-5.0); Phosphorus 3.4 mg/dL (2.5-4.5); Potassium 4.9 mmol/L (3.5-5.1); Total Bilirubin 0.8 mg/dL (0.2-1.3); Total Protein 6.9 g/dL (6.3-8.2)
[2020-07-07 09:36] LABS: INR 0.9 (<1.2); Prothrombin Time 9.8 sec (9.0-12.0)
[2020-07-07 09:45] LABS: Partial Thromboplastin Time 21.8 sec (22.0-30.0)
--- NOTE | 2020-07-07 10:01 | XR ---
EXAMINATION TYPE: XR chest 2V DATE OF EXAM: 07/07/2020 COMPARISON: 04/18/2020 INDICATION: Weakness TECHNIQUE: Frontal and lateral views of the chest are obtained. FINDINGS: The heart size is increased slightly in size and may be mildly prominent. Prior cardiac surgery and s ternotomy wires are evident. The pulmonary vasculature is normal. The lungs are clear. IMPRESSION: 1. Mild cardiomegaly.
[2020-07-07] MEDS ORDERED: NITROGLYCERIN SL TABS 0.4 MG TAB SUBLINGUAL PRN (11:28)
[2020-07-07] MEDS: SODIUM CHLORIDE 0.9% 1,000 ML IV SCH (16:53)
[2020-07-07 17:15] LABS: Glucose,Whole Blood 183 mg/dL (75-99)
[2020-07-07] MEDS: INSULIN ASPART (NovoLOG) 100 UNIT/ML VIAL SQ SCH ×2 (17:36→20:51)
[2020-07-07] MEDS ORDERED: ACETAMINOPHEN TAB 325 MG TAB PO PRN (17:50)
--- NOTE | 2020-07-07 17:59 | HP ---
HISTORY AND PHYSICAL DATE OF SERVICE: 07/07/2020 CHIEF COMPLAINTS: Weakness and bradycardia. HISTORY OF PRESENT ILLNESS: This is a 69-year-old woman with a past medical history of coronary artery disease, history of diabetes type 2, hypertension, hyperlipidemia, myocardial infarction being followed by Dr. Wong in the outpatient setting, was complaining of weakness this morning. The patient took her blood pressure. The patient was feeling dizzy also on standing up and the pulse was found to be in 40s. The patient came to [facility] and was admitted for further evaluation and treatment. There is no history of fever, rigors, no headache, loss of consciousness, seizures at this time. After admission, the patient had creatinine of 1.56 and troponin 0.049, indicating some mild non ST elevation myocardial infarction. TSH was also elevated. PAST MEDICAL HISTORY: History of CAD, history of diabetes type 2, history hypertension, hyperlipidemia, history of myocardial infarction, history of CAD, CABG, cardiac catheterization. MEDICATIONS: Home medications are reviewed and include Prograf 1 mg q.h.s., Nitrostat 0.4 sublingual q.5h p.r.n., Myfortic 360 mg b.i.d., Toprol-XL 25 mg daily, Magnesium oxide, Xalatan, Imdur, Toujeo, Humalog, Flonase, iron sulfate, Colace, vitamin D3, Lipitor, aspirin. Doses are reviewed. ALLERGIES: ADHESIVE TAPE, REGLAN, GRAPEFRUIT, IBUPROFEN, REQUIP, CHERIE. FAMILY HISTORY: History of CAD in mother. SOCIAL HISTORY: Previous history of smoking. No history of current smoking or alcohol intake. REVIEW OF SYSTEMS: ENT: No diminished vision or hearing. CARDIOVASCULAR: As mentioned earlier. RESPIRATORY: As mentioned earlier. GI: No nausea or vomiting. : As mentioned earlier. NERVOUS SYSTEM: Generalized weakness. ALLERGY/IMMUNOLOGY: No asthma or hayfever. MUSCULOSKELETAL: As mentioned earlier. HEMATOLOGY: As mentioned earlier. ENDOCRINE: As mentioned earlier. CONSTITUTIONAL: As mentioned earlier. DERMATOLOGY: Negative. RHEUMATOLOGY: Negative. PSYCHIATRY: As mentioned earlier. PHYSICAL EXAMINATION: GENERAL: Patient is alert and oriented times three. VITAL SIGNS: Pulse 41, blood pressure 130/60, respirations 16, temperature 98.8, pulse ox 94% on room air HEENT: Conjunctivae normal. Oral mucosa is moist. NECK: No jugular venous distention. No carotid bruits. No lymph node enlargement. RESPIRATORY: Breath sounds diminished at the bases. A few scattered rhonchi, no crackles. HEART: S1 and S2, muffled. No S3 or S4. ABDOMEN: Soft, no tenderness. No masses palpable. Obese. EXTREMITIES: No edema, no swelling. NERVOUS: Higher functions as mentioned earlier. Moves all four limbs. No focal or motor sensory deficits. LYMPHATICS: No lymph nodes palpable in the neck or axillae. SKIN: No rash. JOINTS: No active deforming arthropathy. LABS: CBC within normal limits and sodium is 133, potassium 4.9, creatinine is 1.56, glucose 269 and troponin 0.049. TSH is 6.48. ASSESSMENT: 1. Weakness with symptomatic bradycardia, possibly junctional rhythm at 40 per minute. 2. Troponin elevated up to 0.049, possible acute non-ST segment elevation myocardial infarction. 3. Increased creatinine at 1.56 with chronic kidney disease stage 3. 4. Hyponatremia. 5. Diabetes mellitus type 2. 6. Elevated TSH, rule out hypothyroidism. 7. History of coronary artery disease, coronary artery bypass grafting. 8. Hypertension. 9. Hyperlipidemia. 10.History of myocardial infarction. 11.History of glaucoma. 12.History of renal transplant in 2008. 13.History of urinary tract infections. 14.History of hernia repair. 15.Remote history of nicotine dependence. 16.Obesity with body mass index of 36. RECOMMENDATION AND DISCUSSION: In this 69-year-old woman who presented with multiple medical issues, at this time I recommend to continue the current medications, continue symptomatic treatment. Otherwise, we will monitor in telemetry. Cautious IV fluids. Cardiology consultation for the above mentioned issues including bradycardia as well as elevated troponin. Otherwise, repeat labs. Guarded prognosis because of multiple complex medical issues. Further recommendations to follow. MMODL / IJN: [id number] / MTDD
[2020-07-07 19:23] LABS: Appearance,Urine Clear (Clear); Bacteria,Urine Occasional /hpf; Bilirubin,Urine Negative (Negative); Blood,Urine Negative (Negative); Color,Urine Light Yellow; Glucose,Urine (UA) Negative (Negative); Ketones,Urine Negative (Negative); Leukocyte Esterase,Urine Large (Negative); Mucus,Urine Rare /hpf; Nitrite,Urine Negative (Negative); Protein,Urine Negative (Negative); RBC,Urine 1 /hpf (0-5); Specific Gravity,Urine 1.009 (1.001-1.035); Squamous Epithelial Cell,Urine 1 /hpf (0-4); Urobilinogen,Urine <2.0 mg/dL (<2.0); WBC,Urine 28 /hpf (0-5)
[2020-07-07 20:11] LABS: Glucose,Whole Blood 233 mg/dL (75-99)
[2020-07-07] MEDS: MAGNESIUM OXIDE 400 MG TAB PO SCH (20:55)
[2020-07-07] MEDS: LATANOPROST 0.005% OPHTH DROPS 2.5 ML BTL BOTH EYES SCH (20:55)
[2020-07-07] MEDS: INSULIN DETEMIR (LEVEMIR) 100 UNIT/ML SYR SQ SCH (20:56)
[2020-07-07] MEDS: TACROLIMUS 1 MG CAP PO SCH (20:56)
[2020-07-07] MEDS: ATORVASTATIN 40 MG TAB PO SCH (20:56)
[2020-07-07] MEDS: MYCOPHENOLATE SODIUM DR 180 MG TABLET.DR PO SCH (20:56)
[2020-07-07] MEDS: CHOLECALCIFEROL 1,000 UNIT TAB PO SCH (20:56)
[2020-07-08] MEDS: SODIUM CHLORIDE 0.9% 1,000 ML IV SCH ×2 (06:08→17:37)
[2020-07-08] MEDS: INSULIN ASPART (NovoLOG) 100 UNIT/ML VIAL SQ SCH ×4 (06:09→20:40)
[2020-07-08 06:10] LABS: Glucose,Whole Blood 123 mg/dL (75-99)
[2020-07-08 08:00] LABS: Basophils % (A) 1 %; Eosinophils # (A) 0.2 k/uL (0-0.7); Eosinophils % (A) 3 %; HCT 39.5 % (34.0-46.0); HGB 12.9 gm/dL (11.4-16.0); Lymphocytes # (A) 0.9 k/uL (1.0-4.8); Lymphocytes % (A) 16 %; MCH 27.8 pg (25.0-35.0); MCHC 32.6 g/dL (31.0-37.0); MCV 85.2 fL (80.0-100.0); Mean Platelet Volume 8.1; Monocytes # (A) 0.4 k/uL (0-1.0); Monocytes % (A) 7 %; Neutrophils % (A) 71 %; Platelet Count 165 k/uL (150-450); RBC 4.63 m/uL (3.80-5.40); RDW 12.9 % (11.5-15.5); WBC 5.6 k/uL (3.8-10.6)
[2020-07-08 08:09] LABS: Calcium 8.5 mg/dL (8.4-10.2); Potassium 4.6 mmol/L (3.5-5.1)
[2020-07-08] MEDS: FERROUS SULFATE 325 MG TAB PO SCH (09:37)
[2020-07-08] MEDS: ISOSORBIDE MONONITRATE ER 30 MG TAB.ER.24H PO SCH (09:37)
[2020-07-08] MEDS: CHOLECALCIFEROL 1,000 UNIT TAB PO SCH ×2 (09:37→20:40)
[2020-07-08] MEDS: DOCUSATE 100 MG CAP PO SCH (09:37)
[2020-07-08] MEDS: ASPIRIN 81 MG PO SCH (09:37)
[2020-07-08] MEDS: MAGNESIUM OXIDE 400 MG TAB PO SCH ×2 (09:37→20:40)
[2020-07-08] MEDS: TACROLIMUS 1 MG CAP PO SCH ×2 (09:39→20:40)
[2020-07-08] MEDS: MYCOPHENOLATE SODIUM DR 180 MG TABLET.DR PO SCH ×2 (09:41→20:40)
--- NOTE | 2020-07-08 11:04 | P.PN ---
Subjective Progress Note Date: 07/08/20 This is a pleasant 69-year-old female patient with extensive cardiovascular history. The patient doesn't follow with Dr. Girard in the office on regular basis. She does have coronary artery disease where in 2009 she underwent coronary artery bypass grafting with RIVERA to LAD, SVG to OM, and SVG to RCA. B eside that in 2008 the patient underwent renal transplant. She was admitted to the hospital recently with a chest discomfort and ruled out for acute coronary event. She underwent a heart catheterization by Dr. Pandey and that point the heart catheterization revealed severe triple-vessel coronary artery disease was extremely calcified arteries with patent RIVERA to LAD and mild to moderate disease involving the graft to the left circumflex as well as patent graft to the right coronary artery. At that point maximize medical treatment was advised. The patient was in her usual state of health until yesterday when she woke up from sleep not feeling well. She felt tired and she felt weak. No sonya st pain or chest discomfort nor shortness of breath. No dizziness or lightheadedness and no loss of consciousness or syncope. She checked her blood pressure and heart rate. The pressure was within normal limits but her heart rate was in the 40s and because of that she decided to come to the emergency department. Initially the patient's EKG showed a junctional rhythm, she had been on Toprol XL 25 mg at home which had been placed on hold. Recent echocardiogram with Doppler study was performed, which revealed an ejection fraction of 50-55%. The patient was seen and examined this morning blood pressure 134/56 with a heart rate in the 70s to 80s. White blood cell count 5.6, hemoglobin 12.9, platelet count 165. Sodium 136, potassium 4.6, BUN 28, creatinine 1.1. TSH came back at 6.48. Objective - Vital Signs Vital signs: Vital Signs Temp 98.2 F 07/08/20 03:16 Pulse 80 07/08/20 03:16 Resp 18 07/08/20 03:16 BP 133/55 07/08/20 03:16 Pulse Ox 97 07/08/20 03:16 Intake & Output 07/07/20 07/08/20 07/08/20 18:59 06:59 18:59 Intake Total 240 Output Total 540 Balance -540 240 Weight 104.326 kg 103.8 kg Intake: Oral 240 Output: Urine 540 Other: Voiding Method Toilet Toilet # Voids 1 1 - Exam PHYSICAL EXAMINATION: GENERAL: 69-year-old female in no acute distress at the time of my examination HEENT: Head is atraumatic, normocephalic. Pupils equal, round. Sclera anicteric. Conjunctiva are clear. Mucous membranes of the mouth are moist. Neck is supple. There is no elevated jugular venous pressure. No carotid bruit is heard. HEART EXAMINATION: Heart S1, S2 normal. No murmur or gallop heard. CHEST EXAMINATION: Lungs are clear to auscultation and precussion. No chest wall tenderness is noted on palpation or with deep breathing. ABDOMEN: Soft, nontender. Bowel sounds are heard. No organomegaly noted. EXTREMITIES: 2+ peripheral pulses with no evidence of peripheral edema and no calf tenderness noted. NEUROLOGIC patient is awake, alert and oriented 3 . . - Labs CBC & Chem 7: 07/08/20 07:28 07/08/20 07:28 Labs: Abnormal Lab Results - Last 24 Hours (Table) 07/07/20 07/07/20 07/07/20 Range/Units 12:45 15:50 17:13 Lymphocytes # (1.0-4.8) k/uL Sodium (137-145) mmol/L BUN (7-17) mg/dL Creatinine (0.52-1.04) mg/dL Glucose (74-99) mg/dL POC Glucose (mg/dL) 183 H (75-99) mg/dL Troponin I 0.045 H* 0.045 H* (0.000-0.034) ng/mL HDL Cholesterol (40-60) mg/dL Ur Leukocyte Esterase (Negative) Urine WBC (0-5) /hpf Urine Bacteria (None) /hpf Urine Mucus (None) /hpf 07/07/20 07/07/20 07/08/20 Range/Units 19:00 20:10 06:09 Lymphocytes # (1.0-4.8) k/uL Sodium (137-145) mmol/L BUN (7-17) mg/dL Creatinine (0.52-1.04) mg/dL Glucose (74-99) mg/dL POC Glucose (mg/dL) 233 H 123 H (75-99) mg/dL Troponin I (0.000-0.034) ng/mL HDL Cholesterol (40-60) mg/dL Ur Leukocyte Esterase Large H (Negative) Urine WBC 28 H (0-5) /hpf Urine Bacteria Occasional H (None) /hpf Urine Mucus Rare H (None) /hpf 07/08/20 07/08/20 Range/Units 07:28 07:28 Lymphocytes # 0.9 L (1.0-4.8) k/uL Sodium 136 L (137-145) mmol/L BUN 28 H (7-17) mg/dL Creatinine 1.14 H (0.52-1.04) mg/dL Glucose 113 H (74-99) mg/dL POC Glucose (mg/dL) (75-99) mg/dL Troponin I (0.000-0.034) ng/mL HDL Cholesterol 32 L (40-60) mg/dL Ur Leukocyte Esterase (Negative) Urine WBC (0-5) /hpf Urine Bacteria (None) /hpf Urine Mucus (None) /hpf Microbiology - Last 24 Hours (Table) 07/07/20 19:00 Urine Culture - Preliminary Urine,Voided Assessment and Plan Plan: Assessment and plan #1 symptomatic bradycardia #2 junctional rhythm, this morning in normal sinus rhythm #3 coronary artery disease as described above #4 history of renal transplant #5 multiple comorbid conditions Plan From cardiology's perspective, patient may be able to be discharged home once cleared by primary. We will recommend to continue the patient off of the beta francine at this time, make a follow-up appointment in the office post discharge. DNP note has been reviewed, I agree with a documented findings and plan of care. Patient was seen and examined.
[2020-07-08 11:47] LABS: Glucose,Whole Blood 174 mg/dL (75-99)
[2020-07-08 16:58] LABS: Glucose,Whole Blood 181 mg/dL (75-99)
[2020-07-08 17:04] LABS: Magnesium 1.8 mg/dL (1.6-2.3)
[2020-07-08 17:21] LABS: T4, Free (Free Thyroxine) 1.41 ng/dL (0.78-2.19)
--- NOTE | 2020-07-08 17:57 | PN ---
PROGRESS NOTE DATE OF SERVICE: 07/08/2020 This 69-year-old woman who was admitted with weakness and bradycardia was on beta blockers. Beta blockers have been stopped at this time. The patient also had EKG that showed junctional rhythm. The sodium is 136, creatinine is 1.5, indicating acute prerenal failure. Sugar is elevated and troponin was found to be 0.045, indeterminate. Cardiology is following the patient. TSH is elevated at 6.480. Past medical history reviewed. REVIEW OF SYSTEMS: CARDIOVASCULAR SYSTEM: No angina, palpitations. RESPIRATORY SYSTEM: As mentioned earlier. GI: No nausea, vomiting. : No dysuria or retention. NERVOUS SYSTEM: No numbness, weakness. CURRENT MEDICATIONS: Reviewed. They include Tylenol, aspirin, Lipitor, Rocephin, vitamin D3, Colace, iron sulfate, Flonase, NovoLog, Levemir, Imdur, Xalatan, magnesium oxide, Nitrostat, Prograf. PHYSICAL EXAMINATION: Patient alert and oriented x3. Pulse 79, blood pressure 130/60, respiration 20, temperature 98.2, pulse ox 94% on room air. HEENT: Conjunctivae normal. NECK: No jugular venous distention. CARDIOVASCULAR SYSTEM: S1, S2 muffled. RESPIRATORY SYSTEM: Breath sounds diminished at the bases. No rhonchi. No crackles. ABDOMEN: Soft, non-tender. LEGS: No edema. No swelling. NERVOUS SYSTEM: No focal deficit. LABS: CBC within normal limits. Sodium 136, creatinine 1.14. ASSESSMENT: 1. Weakness and symptomatic bradycardia, possibly junctional rhythm at 40 per minute, possibly secondary to beta blockers. 2. Dehydration with acute renal failure with acute tubular necrosis and prerenal renal failure with creatinine 1.56. 3. Possible chronic kidney disease, stage 3 baseline. 4. Troponin elevated up to 0.049; possible acute yba-IW-pohmkej-elevation myocardial infarction. 5. Hyponatremia. 6. Diabetes mellitus, type 2. 7. Elevated TSH; rule out hypothyroidism. 8. History of coronary artery disease, coronary artery bypass grafting. 9. Hypertension. 10.Hyperlipidemia. 11.History of myocardial infarction. 12.History of glaucoma. 13.History of renal transplant in 2008. 14.History of urinary tract infection. 15.History of hernia repair. 16.Remote history of nicotine dependence. 17.Obesity with body mass index of 36. RECOMMENDATIONS AND DISCUSSION: In this 69-year-old woman who presented with multiple complex medical issues, we will monitor the patient closely, continue the current medications, continue with IV fluids. Monitor creatinine closely. Beta francine monitor the heart rate closely. Monitor sodium. Cardiology is following the patient closely. I would also recommend a 2D echo with Doppler as well as free T4 and free T3 also. Prognosis guarded because of multiple complex medical issues. Further recommendations to follow. MMODL / IJN: [id number] / MTDNeha
[2020-07-08 20:30] LABS: Glucose,Whole Blood 147 mg/dL (75-99)
[2020-07-08] MEDS: INSULIN DETEMIR (LEVEMIR) 100 UNIT/ML SYR SQ SCH (20:40)
[2020-07-08] MEDS: ATORVASTATIN 40 MG TAB PO SCH (20:40)
[2020-07-08] MEDS: LATANOPROST 0.005% OPHTH DROPS 2.5 ML BTL BOTH EYES SCH (20:41)
[2020-07-08] MEDS ORDERED: FLUTICASONE 50MCG/SPRAY NASAL 16GM EA NOSTRIL SCH (21:00)
--- NOTE | 2020-07-08 21:13 | CONS ---
CONSULTATION REASON FOR CONSULT: Posttransplant care. HISTORY OF PRESENT ILLNESS: Patient is a 69-year-old female with history of a living-related renal allograft in 2008 with underlying CKD. Baseline creatinine about 1.1-1.2 mg/dL. The patient was admitted to the hospital with extremely low blood pressure, increased weakness and fatigue. She denied any fever or chills. She denied significant nausea or vomiting. Serum creatinine was 1.5 on initial admission, currently down to 1.14. Urine shows evidence of pyuria. Urine culture is currently pending. Patient has been started on IV fluids and empiric antibiotics. The patient also stated that her heart rate was low and she has had issues previously with the Lopressor. Currently, I do not see it on her med list. Heart rate currently is not low, but it was at 41 on initial admission. Systolic blood pressure currently about 130 mmHg. PAST MEDICAL HISTORY: Significant for coronary artery disease, type 2 diabetes, hypertension, hyperlipidemia, glaucoma, history of retinal bleed, history of end-stage renal disease, status post kidney transplant 2008, previous history of urinary tract infections. PAST SURGICAL HISTORY: Appendectomy, cholecystectomy, coronary artery bypass surgery, hernia repair, hysterectomy, cardiac catheterization, colonoscopies, laser surgeries for the eyes, bilateral cataract surgery. SOCIAL HISTORY: Patient is a former smoker. No history of drug abuse or alcohol abuse. MEDICATIONS: Currently include vitamin D3, insulin, Prograf, Imdur, Colace, Zyrtec, Flonase, aspirin, Lipitor, Toprol, Nitrostat. ALLERGIES: INCLUDE ADHESIVE TAPE, REGLAN, GRAPEFRUIT, IBUPROFEN, REQUIP AND CHERIE. REVIEW OF SYSTEMS: As per HPI. Other systems negative. EXAMINATION: Patient is comfortable, awake. She is not in any acute distress. Blood pressure was 150/65, heart rate 72 per minute, patient is afebrile. Examination of the heart S1, S2. Examination of the lungs, bilateral breath sounds are heard. Abdomen is soft, nontender. Examination of lower extremities shows no significant edema. 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 LABS: Show sodium 136, potassium 4.6, chloride 103, CO2 is 28, BUN 28, creatinine 1.14, hemoglobin 12.9 g/dL. UA shows WBCs 28, large leukocyte esterase, no blood or protein. ASSESSMENT: 1. Acute kidney injury secondary to hypotension and possibly underlying urinary tract infection, currently improved. Patient is maintained on IV fluids which we can continue. 2. Status post living related renal transplant in 2008. Continue Prograf and Myfortic at the current dose. 3. Pyuria, rule out urinary tract infection. 4. Bradycardia associated with beta blockers. The patient states that she has had previous episodes of bradycardia with Lopressor. She is currently not on it in the hospital. PLAN: Continue IV fluids. Continue current immunosuppressant. Repeat labs in a.m. Maintain patient off beta blockers. Cardiac consultation. MMODL / IJN: [id number] /
[2020-07-09 06:21] LABS: Glucose,Whole Blood 91 mg/dL (75-99)
[2020-07-09] MEDS: INSULIN ASPART (NovoLOG) 100 UNIT/ML VIAL SQ SCH ×2 (06:34→12:08)
[2020-07-09] MEDS: DOCUSATE 100 MG CAP PO SCH (09:14)
[2020-07-09] MEDS: TACROLIMUS 1 MG CAP PO SCH (09:14)
[2020-07-09] MEDS: ISOSORBIDE MONONITRATE ER 30 MG TAB.ER.24H PO SCH (09:14)
[2020-07-09] MEDS: MAGNESIUM OXIDE 400 MG TAB PO SCH (09:14)
[2020-07-09] MEDS: FERROUS SULFATE 325 MG TAB PO SCH (09:14)
[2020-07-09] MEDS: ASPIRIN 81 MG PO SCH (09:14)
[2020-07-09] MEDS: CHOLECALCIFEROL 1,000 UNIT TAB PO SCH (09:15)
[2020-07-09] MEDS: MYCOPHENOLATE SODIUM DR 180 MG TABLET.DR PO SCH (09:15)
[2020-07-09 09:45] LABS: Basophils % (A) 1 %; Eosinophils # (A) 0.2 k/uL (0-0.7); Eosinophils % (A) 3 %; HCT 36.9 % (34.0-46.0); HGB 12.1 gm/dL (11.4-16.0); Lymphocytes % (A) 14 %; MCH 28.2 pg (25.0-35.0); MCHC 32.9 g/dL (31.0-37.0); MCV 85.9 fL (80.0-100.0); Mean Platelet Volume 8.2; Monocytes # (A) 0.5 k/uL (0-1.0); Monocytes % (A) 7 %; Neutrophils % (A) 74 %; Platelet Count 177 k/uL (150-450); RBC 4.29 m/uL (3.80-5.40); WBC 6.8 k/uL (3.8-10.6)
[2020-07-09 10:19] LABS: Calcium 8.1 mg/dL (8.4-10.2); Potassium 4.3 mmol/L (3.5-5.1)
[2020-07-09 11:24] VITALS: BP 132/64; PULSE 73; RESP 18; TEMP 99.1
--- NOTE | 2020-07-09 11:41 | PN ---
PROGRESS NOTE Patient is seen for followup for acute kidney injury, she is currently doing well. Patient is maintained on IV fluids. Blood pressure, heart rate stable. Patient has good urine output. PHYSICAL EXAMINATION: Today, blood pressure was 140/60, heart rate 82 per minute, she is afebrile. Examination of the heart S1, S2. Examination of the lungs, bilateral breath sounds are heard. Abdomen is soft, nontender. Examination of the lower extremities shows no significant edema. 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 LABS: Show sodium 134, potassium 4.3, chloride 104, BUN 24, creatinine 1.07, hemoglobin 12.1 g/dL. ASSESSMENT: 1. Acute kidney injury, prerenal and secondary to hypotension, currently resolved. 2. Status post -donor renal transplant 2008. Maintained on Prograf and Myfortic. Continue with the current dose. 3. Bradycardia associated with late beta blockers, currently resolved. 4. Urinary tract infection. Urine culture did grow gram-negative bacilli. PLAN: Discontinue IV fluids. Continue antibiotics. Patient could be discharged and follow up as outpatient in about 2-3 weeks. MMODL / IJN: [id number] /
[2020-07-09 11:50] LABS: Glucose,Whole Blood 134 mg/dL (75-99)
--- NOTE | 2020-07-09 11:50 | ECHOF ---
Referral Reason:mi?? MEASUREMENTS -------- HEIGHT: 170.2 cm WEIGHT: 103.9 kg BP: RVIDd: 3.9 cm (< 3.3) IVSd: 1.5 cm (0.6 - 1.1) LVIDd: 5.0 cm (3.9 - 5.3) LVPWd: 1.6 cm (0.6 - 1.1) IVSs: 1.9 cm LVIDs: 3.0 cm LVPWs: 1.5 cm LA Diam: 5.0 cm (2.7 - 3.8) LAESV Index (A-L): 30.39 ml/m Ao Diam: 2.8 cm (2.0 - 3.7) AV Cusp: 1.8 cm (1.5 - 2.6) MV EXCURSION: 15.965 mm (> 18.000) MV EF SLOPE: 66 mm/s (70 - 150) MV E Ross: 0.73 m/s MV DecT: 280 ms MV A Ross: 1.16 m/s MV E/A Ratio: 0.63 AV maxP.62 mmHg AV meanP.97 mmHg RAP: 5.00 mmHg RVSP: 31.17 mmHg FINDINGS -------- Sinus rhythm. This was a techncally difficult study with suboptimal views, , Definity utilized for enhancement of i regan. The left ventricular size is normal. There is moderate concentric left ventricular hypertrophy. O verall left ventricular systolic function is mild-moderately impaired with, an EF between 40 - 45 %. Inferior Hypokinesis The right ventricle is mildly enlarged. The left atrium is moderately dilated. LA is moderately dilated 34-39 ml/m2 The right atrial size is normal. Lumason used There is mild aortic valve sclerosis. There is no evidence of aortic regurgitation. Mild mitral annular calcification present. Mild mitral regurgitation is present. Mild tricuspid regurgitation present. Right ventricular systolic pressure is normal at < 35 mmHg. There is no pulmonic regurgitation present. The aortic root size is normal. There is no pericardial effusion. CONCLUSIONS -------- 1. The left ventricular size is normal. 2. There is moderate concentric left ventricular hypertrophy. 3. Overall left ventricular systolic function is mild-moderately impaired with, an EF between 40 - 45 %. 4. Inferior Hypokinesis 5. The right ventricle is mildly enlarged. 6. The left atrium is moderately dilated. 7. LA is moderately dilated 34-39 ml/m2 8. The right atrial size is normal. 9. Lumason used 10. There is mild aortic valve sclerosis. 11. Mild mitral annular calcification present. 12. Mild mitral regurgitation is present. 13. Mild tricuspid regurgitation present. 14. There is no pericardial effusion. BIOMETRY TEACHER: Mahsa Eng RDCS
--- NOTE | 2020-07-09 13:35 | P.PN ---
Subjective Progress Note Date: 07/09/20 This is a pleasant 69-year-old female patient with extensive cardiovascular history. The patient doesn't follow with Dr. Girard in the office on regular basis. She does have coronary artery disease where in 2009 she underwent coronary artery bypass grafting with RIVERA to LAD, SVG to OM, and SVG to RCA. B eside that in 2008 the patient underwent renal transplant. She was admitted to the hospital recently with a chest discomfort and ruled out for acute coronary event. She underwent a heart catheterization by Dr. Pandey and that point the heart catheterization revealed severe triple-vessel coronary artery disease was extremely calcified arteries with patent RIVERA to LAD and mild to moderate disease involving the graft to the left circumflex as well as patent graft to the right coronary artery. At that point maximize medical treatment was advised. The patient was in her usual state of health until yesterday when she woke up from sleep not feeling well. She felt tired and she felt weak. No sonya st pain or chest discomfort nor shortness of breath. No dizziness or lightheadedness and no loss of consciousness or syncope. She checked her blood pressure and heart rate. The pressure was within normal limits but her heart rate was in the 40s and because of that she decided to come to the emergency department. Initially the patient's EKG showed a junctional rhythm, she had been on Toprol XL 25 mg at home which had been placed on hold. Recent echocardiogram with Doppler study was performed, which revealed an ejection fraction of 50-55%. The patient was seen and examined this morning blood pressure 134/56 with a heart rate in the 70s to 80s. White blood cell count 5.6, hemoglobin 12.9, platelet count 165. Sodium 136, potassium 4.6, BUN 28, creatinine 1.1. TSH came back at 6.48. 07/09/2020 Patient was seen and examined today, overall doing well. Anticipating discharge home today. Blood pressure 132/64 with a heart rate in the 70s, 95% on room air. White blood cell count 6.8, hemoglobin 12.1, platelet count 177. Sodium 134, potassium 4.3, BUN 24, creatinine 1.0. Echocardiogram with Doppler study was performed which revealed an ejection fraction of 40-45%, inferior hy pokinesis. Objective - Vital Signs Vital signs: Vital Signs Temp 99.1 F 07/09/20 09:00 Pulse 73 09/29/20 09:00 Resp 18 07/09/20 09:00 BP 132/64 07/09/20 09:00 Pulse Ox 95 07/09/20 09:00 Intake & Output 07/08/20 07/09/20 07/09/20 18:59 06:59 18:59 Intake Total 360 120 Output Total 300 350 Balance 60 -350 120 Weight 103.9 kg Intake: Oral 360 120 Output: Urine 300 350 Other: Voiding Method Toilet Toilet Toilet # Voids 0 1 0 - Exam PHYSICAL EXAMINATION: GENERAL: 69-year-old female in no acute distress at the time of my examination HEENT: Head is atraumatic, normocephalic. Pupils equal, round. Sclera anict rodrigue. Conjunctiva are clear. Mucous membranes of the mouth are moist. Neck is supple. There is no elevated jugular venous pressure. No carotid bruit is heard. HEART EXAMINATION: Heart S1, S2 normal. No murmur or gallop heard. CHEST EXAMINATION: Lungs are clear to auscultation and precussion. No chest wall tenderness is noted on palpation or with deep breathing. ABDOMEN: Soft, nontender. Bowel sounds are heard. No organomegaly noted. EXTREMITIES: 2+ peripheral pulses with no evidence of peripheral edema and no calf tenderness noted. NEUROLOGIC patient is awake, alert and oriented 3 . . - Labs CBC & Chem 7: 07/09/20 09:17 07/09/20 09:17 Labs: Abnormal Lab Results - Last 24 Hours (Table) 07/08/20 07/08/20 07/09/20 Range/Units 16:38 20:28 09:17 Sodium 134 L (137-145) mmol/L BUN 24 H (7-17) mg/dL Creatinine 1.07 H (0.52-1.04) mg/dL Glucose 172 H (74-99) mg/dL POC Glucose (mg/dL) 181 H 147 H (75-99) mg/dL Calcium 8.1 L (8.4-10.2) mg/dL 07/09/20 Range/Units 11:48 Sodium (137-145) mmol/L BUN (7-17) mg/dL Creatinine (0.52-1.04) mg/dL Glucose (74-99) mg/dL POC Glucose (mg/dL) 134 H (75-99) mg/dL Calcium (8.4-10.2) mg/dL Microbiology - Last 24 Hours (Table) 07/07/20 19:00 Urine Culture - Preliminary Urine,Voided Gram Neg Bacilli Assessment and Plan Plan: Assessment and plan #1 symptomatic bradycardia #2 junctional rhythm, this morning in normal sinus rhythm #3 coronary artery disease as described above #4 history of renal transplant #5 multiple comorbid conditions Plan From cardiology's perspective, patient may be able to be discharged home. We will recommend to continue the patient off of the beta francine at this time, make a follow-up appointment in the office post discharge. DNP note has been reviewed, I agree with a documented findings and plan of care. Patient was seen and examined.
--- NOTE | 2020-07-10 10:46 | DS ---
DISCHARGE SUMMARY DATE OF SERVICE: 07/09/2020 FINAL DIAGNOSES: 1. Weakness. Symptomatic bradycardia, possibly junctional rhythm at 40 per minute, possibly secondary to beta blockers. 2. Dehydration with acute renal failure with acute tubular necrosis and prerenal acute renal failure with creatinine 1.56, improved. 3. Possible chronic kidney stage 3 baseline. 4. Troponin elevated up to 0.049. Possible myocardial infarction unlikely per Cardiology. 5. Hyponatremia. 6. Diabetes mellitus type 2. 7. Elevated TSH, rule out hypothyroidism. 8. CAD, CABG. 9. Hypertension. 10.Hyperlipidemia. 11.History of myocardial infarction. 12.History of glaucoma. 13.History of renal transplant 2008. 14.History of UTI. 15.History of hernia repair. 16.Remote history of nicotine dependence. 17.Obesity with body mass index of 36. 18.UTI secondary to Klebsiella pneumonia, present on admission. DISCHARGE DISPOSITION: The patient will be discharged in a stable condition with guarded prognosis. HISTORY OF PRESENT ILLNESS: The patient had elevated TSH with possible sick euthyroid syndrome, admitted with multiple symptomatology as mentioned earlier. Patient was on beta blockers. Just stopped, heart rate improved to 73. Patient is on IV fluids, which is improved. Creatinine 1.0. The patient felt much better. The patient will be discharged in a stable condition with guarded prognosis. Patient also given a short course of antibiotics for UTI. Cultures are showing Klebsiella pneumonia which is poly sensitive. On exam, vitals are stable. CARDIOVASCULAR: S1, S2. ABDOMEN: Soft. NERVOUS SYSTEM: No focal deficits. DISCHARGE ADVICE: 1. Diet is cardiac diet. 2. Activity limited until followup. 3. Follow up with Dr. Wong in 2-3 days. 4. Follow up with Dr. Girard as recommended. MEDICATIONS: 1. Colace 100 mg p.o. daily. 2. Fluticasone 1 spray daily. 3. NovoLog as before. 4. Imdur ER 30 mg p.o. daily. 5. Iron 320 mg daily. 6. Magnesium oxide 400 mg p.o. b.i.d. 7. Myfortic 360 mg p.o. b.i.d. 8. Prograf 2 mg p.o. daily. 9. Prograf 1 mg q.h.s. 10.Insulin Lantus 30 mg subcu q.h.s. 11.Vitamin D3 one thousand b.i.d. 12.Xalatan 1 drop both eyes. 13.Aspirin 81 mg p.o. daily. 14.Ceftin 500 mg p.o. b.i.d. for 3 days. 15.Lipitor 40 mg q.h.s. 16.Nitrostat 0.4 sublingual p.r.n. 17.No beta blockers. Once again, the patient will be discharged in a stable condition with guarded prognosis. MMODL / IJN: [id number] /
== END 2020-07-09 16:08 | disposition home or self-care (01) | DRG 308 ==
LOC: EC 08:05 → 3SCARD 11:28
PROVIDERS: ADMIT Hospitalist; ATTEND Hospitalist
DX: R00.1 Bradycardia, unspecified (principal); N17.0 Acute kidney failure with tubular necrosis; T86.12 Kidney transplant failure; E87.1 Hypo-osmolality and hyponatremia; N39.0 Urinary tract infection, site not specified; Z94.0 Kidney transplant status; E11.22 Type 2 diabetes mellitus with diabetic chronic kidney disease; E11.39 Type 2 diabetes mellitus with other diabetic ophthalmic complication; B96.1 Klebsiella pneumoniae [K. pneumoniae] as the cause of diseases classified elsewhere; I95.9 Hypotension, unspecified; N18.3 Chronic kidney disease, stage 3 (moderate); E07.81 Sick-euthyroid syndrome; Z79.4 Long term (current) use of insulin; T44.7X5A Adverse effect of beta-adrenoreceptor antagonists, initial encounter; I12.9 Hypertensive chronic kidney disease with stage 1 through stage 4 chronic kidney disease, or unspecified chronic kidney disease; E86.0 Dehydration; I25.10 Atherosclerotic heart disease of native coronary artery without angina pectoris; I25.84 Coronary atherosclerosis due to calcified coronary lesion; I25.2 Old myocardial infarction; E78.5 Hyperlipidemia, unspecified; H40.9 Unspecified glaucoma; H42 Glaucoma in diseases classified elsewhere; R79.89 Other specified abnormal findings of blood chemistry; E66.9 Obesity, unspecified; Z68.36 Body mass index [BMI] 36.0-36.9, adult; Z79.82 Long term (current) use of aspirin; Z79.899 Other long term (current) drug therapy; Z87.440 Personal history of urinary (tract) infections; Z87.891 Personal history of nicotine dependence; Z87.19 Personal history of other diseases of the digestive system; Z90.49 Acquired absence of other specified parts of digestive tract; Z95.1 Presence of aortocoronary bypass graft; Z90.710 Acquired absence of both cervix and uterus; Z87.42 Personal history of other diseases of the female genital tract; Z98.42 Cataract extraction status, left eye; Z98.41 Cataract extraction status, right eye; Z86.19 Personal history of other infectious and parasitic diseases; Z87.2 Personal history of diseases of the skin and subcutaneous tissue; Z98.890 Other specified postprocedural states; Z88.6 Allergy status to analgesic agent; Z88.8 Allergy status to other drugs, medicaments and biological substances; Z91.018 Allergy to other foods; Z91.048 Other nonmedicinal substance allergy status; Y83.0 Surgical operation with transplant of whole organ as the cause of abnormal reaction of the patient, or of later complication, without mention of misadventure at the time of the procedure; Z82.49 Family history of ischemic heart disease and other diseases of the circulatory system; Z80.0 Family history of malignant neoplasm of digestive organs; Z80.1 Family history of malignant neoplasm of trachea, bronchus and lung
CPT/HCPCS: 36415; 71046; 80048; 80053; 80061; 81001; 82550; 83605; 83735; 84100; 84439; 84443; 84481; 84484; 85025; 85610; 85730; 87077; 87086; 87186; 93005; 93306; 99291

== ENCOUNTER 2020-07-14 11:00 | Emergency (ER) | payer MEDICARE ==
[2020-07-14] MEDS ORDERED: ASPIRIN 81 MG PO STA (11:33)
[2020-07-14 11:57] LABS: Basophils # (A) 0.1 k/uL (0-0.2); Basophils % (A) 1 %; Eosinophils # (A) 0.4 k/uL (0-0.7); Eosinophils % (A) 7 %; HCT 39.1 % (34.0-46.0); HGB 12.6 gm/dL (11.4-16.0); Lymphocytes # (A) 0.9 k/uL (1.0-4.8); Lymphocytes % (A) 18 %; MCH 27.7 pg (25.0-35.0); MCHC 32.1 g/dL (31.0-37.0); MCV 86.1 fL (80.0-100.0); Mean Platelet Volume 7.9; Monocytes # (A) 0.3 k/uL (0-1.0); Monocytes % (A) 5 %; Neutrophils # (A) 3.5 k/uL (1.3-7.7); Neutrophils % (A) 68 %; Platelet Count 234 k/uL (150-450); RBC 4.54 m/uL (3.80-5.40); RDW 12.8 % (11.5-15.5); WBC 5.2 k/uL (3.8-10.6)
[2020-07-14 12:12] LABS: Albumin 3.3 g/dL (3.5-5.0); Calcium 8.8 mg/dL (8.4-10.2); Magnesium 1.6 mg/dL (1.6-2.3); Potassium 4.8 mmol/L (3.5-5.1); Total Bilirubin 0.4 mg/dL (0.2-1.3); Total Protein 6.6 g/dL (6.3-8.2)
--- NOTE | 2020-07-14 12:18 | XR ---
EXAMINATION TYPE: XR chest 2V DATE OF EXAM: 07/14/2020 COMPARISON: 07/07/2020 INDICATION: Chest pain TECHNIQUE: Frontal and lateral views of the chest are obtained. FINDINGS: The heart size is normal. The pulmonary vasculature is normal. The lungs are clear. Sternotomy wires are in the midline. IMPRESSION: 1. No acute pulmonary process.
--- NOTE | 2020-07-14 12:20 | XR ---
EXAMINATION TYPE: XR shoulder complete RT DATE OF EXAM: 07/14/2020 COMPARISON: 02/01/2018, 02/25/2018 MRI shoulder HISTORY: Pain TECHNIQUE: Shoulder examined in 3 views FINDINGS: The humeral head articulates with the glenoid. The acromio-clavicular junction has dystrophic changes from degenerative changes. Inferior impingemen t and downward sloping acromion are present. No acute fractures or dislocations are evident. A follow up study can be performed 7-10 days from acute trauma for continued pain. IMPRESSION: 1. Moderate degenerative changes especially at the distal acromion can contribute to impingement synd sabrina or rotator cuff tear. Findings are stable from 2017
[2020-07-14] MEDS ORDERED: ACET/COD 300 MG/30 MG STARTER PACK 6 TAB BTL PO STA (12:41)
--- NOTE | 2020-07-14 12:42 | ED ---
Recheck HPI - General Chief Complaint: Recheck/Abnormal Lab/Rx Stated Complaint: rt shoulder/neck pain Time Seen by Provider: 07/14/20 11:23 Source: patient Mode of arrival: ambulatory Limitations: no limitations - History of Present Illness Initial Comments: 69-year-old female history of previous CABG, diabetes presenting to emergency department today for chief complaint of right shoulder pain. She states she woke up with it 2 nights ago. Patient states that she history of rotator cuff disease she states it is in the right posterior shoulder/Side of neck. She states that she ranges her shoulder increases. She states there is an area she can touch and increases the pain. She denies any chest pain shortness of breath nausea vomiting jaw pain or pain she states it does not feel like when she had a heart attack in the past and had have her open heart surgery. She states she'll a lot of pressure at that time she does not endorse any shortness of breath or ripping tearing back pain patient has no additional complaints she denies any injury struck trauma or falls stitches no history of a bad right rotator cuff. - Related Data Home Medications Medication Instructions Recorded Confirmed Cholecalciferol [Vitamin D3 (25 1,000 unit PO BID 03/14/14 07/14/20 Mcg = 1000 Iu)] Mycophenolate Sodium Dr [Myfortic] 360 mg PO BID 03/14/14 07/14/20 INSULIN LISPRO (HumaLOG) [humaLOG] See Protocol SQ ACHS 03/21/16 07/14/20 Tacrolimus [Prograf] 2 mg PO DAILY 09/13/17 07/14/20 Isosorbide Mononitrate ER [Imdur] 30 mg PO DAILY 11/26/17 07/14/20 Latanoprost Ophth [Xalatan 0.005%] 1 drop BOTH EYES HS 04/06/18 07/14/20 Docusate [Colace] 100 mg PO DAILY 11/27/19 07/14/20 Ferrous Sulfate [Iron (65 MG 325 mg PO DAILY 11/27/19 07/14/20 Elemental)] Fluticasone Propionate [Flonase 1 spray EA NOSTRIL HS 04/18/20 07/14/20 Allergy Relief] Insulin Glargine,Hum.rec.anlog 30 units SQ 04/18/20 07/14/20 [Brooke Ly] Magnesium Oxide 400 mg PO BID 04/18/20 07/14/20 Tacrolimus [Prograf] 1 mg PO HS 04/18/20 07/14/20 Previous Rx's Medication Instructions Recorded Aspirin 81 mg PO DAILY #30 chew 04/22/20 Atorvastatin [Lipitor] 40 mg PO HS #30 tab 04/22/20 Nitroglycerin Sl Tabs [Nitrostat] 0.4 mg SUBLINGUAL Q5M PRN #20 tab 04/22/20 Allergies Allergy/AdvReac Type Severity Reaction Status Date / Time adhesive tape Allergy tears skin Verified 07/14/20 11:55 metoclopramide HCl Allergy Unknown Verified 07/14/20 11:55 [From Reglan] grapefruit [Grapefruit] AdvReac reaction Verified 07/14/20 11:55 with simvastatin ibuprofen AdvReac kidney Verified 07/14/20 11:55 failure/transplant ropinirole [From Requip] AdvReac LEG CRAMPS Verified 07/14/20 11:55 nupur Allergy Rash/Hives Uncoded 07/14/20 11:22 Review of Systems ROS Statement: Those systems with pertinent positive or pertinent negative responses have been documented in the HPI. ROS Other: All systems not noted in ROS Statement are negative. Past Medical History Past Medical History: Coronary Artery Disease (CAD), Diabetes Mellitus, Eye Disorder, Hyperlipidemia, Hypertension, Myocardial Infarction ([place]), Renal Disease, Skin Disorder Additional Past Medical History / Comment(s): R eye glaucoma, retinal bleed and little vision, renal failure Stage 3 - R renal transplant in 2008, UTIs with sepsis, Last Myocardial Infarction Date:: 2009 History of Any Multi-Drug Resistant Organisms: None Reported Past Surgical History: Appendectomy, Cholecystectomy, Coronary Bypass/CABG, Heart Catheterization, Hernia Repair, Hysterectomy Additional Past Surgical History / Comment(s): 2009 right kidney transplant, 4 vessel CABG in 2009, umbilical hernia repair, colonoscopies, silvia cataract removed, R eye laser surgeries. Past Anesthesia/Blood Transfusion Reactions: No Reported Reaction Additional Past Anesthesia/Blood Transfusion Reaction / Comment(s): unknown Past Psychological History: No Psychological Hx Reported Smoking Status: Former smoker Past Alcohol Use History: None Reported Past Drug Use History: None Reported - Past Family History Brother(s) Family Medical History: Cancer Additional Family Medical History / Comment(s): one brother had kidney cancer. one brother had prostate cancer Mother Family Medical History: Coronary Artery Disease (CAD) Additional Family Medical History / Comment(s): mom had heart disease Father Family Medical History: Cancer Additional Family Medical History / Comment(s): lung and pancreatic cancer General Exam - General Exam Comments Initial Comments: General: The patient is awake and alert, in no distress, and does not appear acutely ill. Eye: Pupils are equal, round and reactive to light, extra-ocular movements are intact. No nystagmus. There is normal conjunctiva bilaterally. No signs of icterus. Ears, nose, mouth and throat: There are moist mucous membranes and no oral lesions. Neck: The neck is supple, there is no tenderness or JVD. Cardiovascular: There is a regular rate and rhythm. No murmur, rub or gallop is appreciated. Respiratory: Lungs are clear to auscultation, respirations are non-labored, breath sounds are equal. No wheezes, stridor, rales, or rhonchi. Gastrointestinal: Soft, non-distended, non-tender abdomen without masses or organomegaly noted. No RUQ Pain.There is no rebound or guarding present. Musculoskeletal: Normal inspection of the right shoulder. Pain with overhead ROM of right shoulder no limitatins. Sregnth intact. Area that is point localized over right trapezius/side of nieck that is tender, makes patient j ump.Radial pulses equal bilaterally 2+. Neurological: A&O x 3. CN II-XII intact grossly, There are no obvious motor or sensory deficits. Coordination appears grossly intact. Speech is normal. Skin: Skin is warm and dry and no rashes or lesions are noted. Psychiatric: Cooperative, appropriate mood & affect, normal judgment. Limitations: no limitations Course Vital Signs 07/14/20 07/14/20 11:17 13:07 Temperature 99.1 F 98.1 F Pulse Rate 71 76 Respiratory 18 19 Rate Blood Pressure 151/78 149/77 O2 Sat by Pulse 96 98 Oximetry Medical Decision Making - Medical Decision Making Labs stable. No CP/SOB. trop (-). appears to be most consistent wtih MSK pain. Patient evaluated by attending Jair nino who is agreeable that he feels this is MSK pain and patient is stable for discharge with PCP and orthopedic f/u. Patietn agreeable to impression, and care plan. Discharged appearing well. - Lab Data Result diagrams: 07/14/20 11:46 07/14/20 11:46 Lab Results 07/14/20 07/14/20 07/14/20 Range/Units 11:46 11:46 11:46 WBC 5.2 (3.8-10.6) k/uL RBC 4.54 (3.80-5.40) m/uL Hgb 12.6 (11.4-16.0) gm/dL Hct 39.1 (34.0-46.0) % MCV 86.1 (80.0-100.0) fL MCH 27.7 (25.0-35.0) pg MCHC 32.1 (31.0-37.0) g/dL RDW 12.8 (11.5-15.5) % Plt Count 234 (150-450) k/uL Neutrophils % 68 % Lymphocytes % 18 % Monocytes % 5 % Eosinophils % 7 % Basophils % 1 % Neutrophils # 3.5 (1.3-7.7) k/uL Lymphocytes # 0.9 L (1.0-4.8) k/uL Monocytes # 0.3 (0-1.0) k/uL Eosinophils # 0.4 (0-0.7) k/uL Basophils # 0.1 (0-0.2) k/uL PT 10.0 (9.0-12.0) sec INR 1.0 (<1.2) APTT 23.0 (22.0-30.0) sec Sodium 134 L (137-145) mmol/L Potassium 4.8 (3.5-5.1) mmol/L Chloride 102 (98-107) mmol/L Carbon Dioxide 28 (22-30) mmol/L Anion Gap 4 mmol/L BUN 19 H (7-17) mg/dL Creatinine 1.00 (0.52-1.04) mg/dL Est GFR (CKD-EPI)AfAm 66 (>60 ml/min/1.73 sqM) Est GFR (CKD-EPI)NonAf 57 (>60 ml/min/1.73 sqM) Glucose 276 H (74-99) mg/dL Calcium 8.8 (8.4-10.2) mg/dL Magnesium 1.6 (1.6-2.3) mg/dL Total Bilirubin 0.4 (0.2-1.3) mg/dL AST 20 (14-36) U/L ALT 12 (4-34) U/L Alkaline Phosphatase 81 (38-126) U/L Troponin I (0.000-0.034) ng/mL Total Protein 6.6 (6.3-8.2) g/dL Albumin 3.3 L (3.5-5.0) g/dL 07/14/20 Range/Units 11:46 WBC (3.8-10.6) k/uL RBC (3.80-5.40) m/uL Hgb (11.4-16.0) gm/dL Hct (34.0-46.0) % MCV (80.0-100.0) fL MCH (25.0-35.0) pg MCHC (31.0-37.0) g/dL RDW (11.5-15.5) % Plt Count (150-450) k/uL Neutrophils % % Lymphocytes % % Monocytes % % Eosinophils % % Basophils % % Neutrophils # (1.3-7.7) k/uL Lymphocytes # (1.0-4.8) k/uL Monocytes # (0-1.0) k/uL Eosinophils # (0-0.7) k/uL Basophils # (0-0.2) k/uL PT (9.0-12.0) sec INR (<1.2) APTT (22.0-30.0) sec Sodium (137-145) mmol/L Potassium (3.5-5.1) mmol/L Chloride (98-107) mmol/L Carbon Dioxide (22-30) mmol/L Anion Gap mmol/L BUN (7-17) mg/dL Creatinine (0.52-1.04) mg/dL Est GFR (CKD-EPI)AfAm (>60 ml/min/1.73 sqM) Est GFR (CKD-EPI)NonAf (>60 ml/min/1.73 sqM) Glucose (74-99) mg/dL Calcium (8.4-10.2) mg/dL Magnesium (1.6-2.3) mg/dL Total Bilirubin (0.2-1.3) mg/dL AST (14-36) U/L ALT (4-34) U/L Alkaline Phosphatase (38-126) U/L Troponin I <0.012 (0.000-0.034) ng/mL Total Protein (6.3-8.2) g/dL Albumin (3.5-5.0) g/dL Disposition Clinical Impression: Right shoulder pain, Muscle spasm Disposition: HOME SELF-CARE Condition: Good Instructions (If sedation given, give patient instructions): Shoulder Pain (ED) Additional Instructions: Please use medication as discussed. Please follow-up with family doctor in the next 2 days. Please return to emergency room if the symptoms increase or worsen or for any other concerns. Is patient prescribed a controlled substance at d/c from ED?: No Referrals: Joel Wong DO [Primary Care Provider] - 1-2 days Time of Disposition: 12:41
[2020-07-14] MEDS ORDERED: LIDOCAINE 5% PATCH TOPICAL SCH (12:45)
[2020-07-14 13:08] VITALS: BP 149/77; PULSE 76; RESP 19; TEMP 98.1
== END 2020-07-14 13:08 | disposition home or self-care (01) ==
LOC: EC 11:00
DX: M62.838 Other muscle spasm (principal); M25.511 Pain in right shoulder; E11.39 Type 2 diabetes mellitus with other diabetic ophthalmic complication; H42 Glaucoma in diseases classified elsewhere; E11.22 Type 2 diabetes mellitus with diabetic chronic kidney disease; N18.30 Chronic kidney disease, stage 3 unspecified; I25.2 Old myocardial infarction; Z79.899 Other long term (current) drug therapy; Z79.4 Long term (current) use of insulin; Z79.51 Long term (current) use of inhaled steroids; Z91.048 Other nonmedicinal substance allergy status; Z91.018 Allergy to other foods; Z88.8 Allergy status to other drugs, medicaments and biological substances; Z88.6 Allergy status to analgesic agent; Z87.891 Personal history of nicotine dependence; Z95.1 Presence of aortocoronary bypass graft; Z94.0 Kidney transplant status
CPT/HCPCS: 36415; 71046; 80053; 83735; 84484; 85025; 85610; 85730; 93005; 99284

== ENCOUNTER → 2021-05-13 | Outpatient (CLI) | payer MEDICARE ==
[2021-05-13 11:35] LABS: Creatinine,Urine Random 174.3 mg/dL; Protein/Creatinine Ratio,Urine 0.052
[2021-05-13 11:54] LABS: Appearance,Urine Cloudy (Clear); Bacteria,Urine Rare /hpf; Bilirubin,Urine Negative (Negative); Blood,Urine Negative (Negative); Color,Urine Yellow; Glucose,Urine (UA) Negative (Negative); Ketones,Urine Negative (Negative); Leukocyte Esterase,Urine Large (Negative); Mucus,Urine Rare /hpf; Nitrite,Urine Negative (Negative); Protein,Urine Negative (Negative); Specific Gravity,Urine 1.016 (1.001-1.035); Squamous Epithelial Cell,Urine 7 /hpf (0-4); Urobilinogen,Urine <2.0 mg/dL (<2.0); WBC,Urine 68 /hpf (0-5)
[2021-05-13 14:47] LABS: Basophils # (A) 0.07 X 10*3/uL (0.00-0.10); Basophils % (A) 1.3 %; Eosinophils # (A) 0.43 X 10*3/uL (0.04-0.35); Eosinophils % (A) 8.1 %; HCT 38.6 % (37.2-46.3); HGB 12.4 g/dL (12.0-15.0); Lymphocytes % (A) 26.5 %; MCH 28.6 pg (27.0-32.0); MCHC 32.1 g/dL (32.0-37.0); MCV 89.1 fL (80.0-97.0); Mean Platelet Volume 11.2 fL (9.5-12.2); Monocytes # (A) 0.41 X 10*3/uL (0.20-1.00); Monocytes % (A) 7.8 %; Neutrophils # (A) 2.97 X 10*3/uL (1.80-7.70); Neutrophils % (A) 56.1 %; Platelet Count 219 X 10*3/uL (140-440); RBC 4.33 X 10*6/uL (4.10-5.20); RDW 13.1 % (11.5-14.5); WBC 5.29 X 10*3/uL (4.50-10.00)
[2021-05-13 19:04] LABS: % Iron Saturation 31.2 (12.00-45.00); African American GFR (CKD) 47.5 (60.0-200.0); Albumin 3.9 g/dL (3.80-4.90); Anion Gap 7.5 mmol/L (4.00-12.00); BUN/Creat Ratio 19.23 Ratio (12.00-20.00); Calcium 9.2 mg/dL (8.7-10.3); Carbon Dioxide 28.5 mmol/L (21.6-31.8); Magnesium 2.6 mg/dL (1.5-2.4); Phosphorus 3.5 mg/dL (2.4-5.1); Potassium 4.8 mmol/L (3.5-5.5)
[2021-05-13 19:14] LABS: Ferritin 148.3 ng/mL (10.0-291.0)
== END | disposition home or self-care (01) ==
LOC: LABWHC1 09:41
PROVIDERS: ATTEND Internal Medicine Nephrology
DX: R82.81 Pyuria (principal); E61.1 Iron deficiency; E55.9 Vitamin D deficiency, unspecified; N25.81 Secondary hyperparathyroidism of renal origin; M10.9 Gout, unspecified; Z94.0 Kidney transplant status
CPT/HCPCS: 36415; 80048; 80197; 81001; 82040; 82306; 82570; 82728; 83540; 83550; 83735; 83970; 84100; 84156; 84550; 85025; 87077; 87086; 87186

== ENCOUNTER → 2021-08-20 | Outpatient (CLI) | payer MEDICARE ==
[2021-08-20 12:05] LABS: Appearance,Urine Clear (Clear); Bacteria,Urine Rare /hpf; Bilirubin,Urine Negative (Negative); Blood,Urine Negative (Negative); Color,Urine Light Yellow; Glucose,Urine (UA) Negative (Negative); Ketones,Urine Negative (Negative); Leukocyte Esterase,Urine Moderate (Negative); Nitrite,Urine Negative (Negative); PH, Urine 6.5 (5.0-8.0); Protein,Urine Negative (Negative); RBC,Urine 1 /hpf (0-5); Specific Gravity,Urine 1.007 (1.001-1.035); Squamous Epithelial Cell,Urine 3 /hpf (0-4); Urobilinogen,Urine <2.0 mg/dL (<2.0); WBC,Urine 1 /hpf (0-5)
[2021-08-20 12:58] LABS: Creatinine,Urine Random 32.7 mg/dL; Protein/Creatinine Ratio,Urine 0.275
[2021-08-20 15:19] LABS: Basophils # (A) 0.09 X 10*3/uL (0.00-0.10); Basophils % (A) 1.9 %; Eosinophils % (A) 14.9 %; HCT 40.1 % (37.2-46.3); HGB 12.7 g/dL (12.0-15.0); Lymphocytes # (A) 1.36 X 10*3/uL (0.90-5.00); Lymphocytes % (A) 28.9 %; MCH 28.1 pg (27.0-32.0); MCHC 31.7 g/dL (32.0-37.0); MCV 88.7 fL (80.0-97.0); Mean Platelet Volume 10.8 fL (9.5-12.2); Monocytes # (A) 0.31 X 10*3/uL (0.20-1.00); Monocytes % (A) 6.6 %; Neutrophils # (A) 2.24 X 10*3/uL (1.80-7.70); Neutrophils % (A) 47.5 %; Platelet Count 205 X 10*3/uL (140-440); RBC 4.52 X 10*6/uL (4.10-5.20); RDW 13.3 % (11.5-14.5); WBC 4.71 X 10*3/uL (4.50-10.00)
[2021-08-20 16:39] LABS: % Iron Saturation 29.47 (12.00-45.00); African American GFR (CKD) 53.4 (60.0-200.0); Albumin 3.9 g/dL (3.8-4.9); BUN/Creat Ratio 20.42 Ratio (12.00-20.00); Blood Urea Nitrogen 24.1 mg/dL (9.0-27.0); Calcium 9.3 mg/dL (8.7-10.3); Carbon Dioxide 24.4 mmol/L (21.6-31.8); Magnesium 1.8 mg/dL (1.5-2.4); Phosphorus 3.5 mg/dL (2.4-5.1); Potassium 4.5 mmol/L (3.5-5.5); Uric Acid 5.9 mg/dL (2.9-7.7)
[2021-08-20 22:22] LABS: Chol/HDL Ratio 4.63 Ratio; HDL Cholesterol 42.3 mg/dL (40.00-60.00); LDL Cholesterol,Calculated 122.5 mg/dL (0.0-131.0); VLDL Calculation 31.2 mg/dL (5.00-40.00)
== END | disposition home or self-care (01) ==
LOC: LABWHC1 09:39
PROVIDERS: ATTEND Nurse Practitioner Family
DX: E11.65 Type 2 diabetes mellitus with hyperglycemia (principal); M10.9 Gout, unspecified; E21.3 Hyperparathyroidism, unspecified; E55.9 Vitamin D deficiency, unspecified; D64.9 Anemia, unspecified; N39.0 Urinary tract infection, site not specified; Z94.0 Kidney transplant status
CPT/HCPCS: 36415; 80048; 80061; 80197; 81001; 82040; 82306; 82570; 82728; 83036; 83540; 83550; 83735; 83970; 84100; 84156; 84550; 85025

== ENCOUNTER 2022-06-09 16:20 | Emergency (ER) | payer MEDICARE ==
[2022-06-09 17:47] LABS: Basophils # (A) 0.1 k/uL (0-0.2); Basophils % (A) 1 %; Eosinophils # (A) 0.3 k/uL (0-0.7); Eosinophils % (A) 3 %; HCT 46.2 % (34.0-46.0); HGB 15.1 gm/dL (11.4-16.0); Lymphocytes # (A) 1.3 k/uL (1.0-4.8); Lymphocytes % (A) 14 %; MCH 28.5 pg (25.0-35.0); MCHC 32.7 g/dL (31.0-37.0); MCV 87.1 fL (80.0-100.0); Mean Platelet Volume 8.1; Monocytes # (A) 0.3 k/uL (0-1.0); Monocytes % (A) 4 %; Neutrophils # (A) 6.8 k/uL (1.3-7.7); Neutrophils % (A) 77 %; Platelet Count 280 k/uL (150-450); RDW 12.8 % (11.5-15.5); WBC 8.9 k/uL (3.8-10.6)
--- NOTE | 2022-06-09 17:57 | XR ---
EXAMINATION TYPE: XR chest 2V DATE OF EXAM: 06/09/2022 COMPARISON: 07/14/2020 HISTORY: Weakness TECHNIQUE: FINDINGS: There are sternal wires. Heart size is normal. Lungs are clear of infiltrate. No heart fail ure. Thoracic aorta is intact. Bony thorax is intact. IMPRESSION: No active cardiopulmonary disease. No change.
[2022-06-09 18:03] LABS: Albumin 3.8 g/dL (3.5-5.0); Calcium 9.1 mg/dL (8.4-10.2); Potassium 4.6 mmol/L (3.5-5.1); Total Bilirubin 0.7 mg/dL (0.2-1.3); Total Protein 7.9 g/dL (6.3-8.2)
[2022-06-09 18:04] LABS: Partial Thromboplastin Time 23.7 sec (22.0-30.0); Prothrombin Time 10.7 sec (9.0-12.0)
[2022-06-09] MEDS ORDERED: SODIUM CHLORIDE 0.9% 1,000 ML IV STA (19:11)
--- NOTE | 2022-06-09 19:28 | ED ---
Weakness HPI - General Chief complaint: Weakness Stated complaint: not feeling well Time Seen by Provider: 06/09/22 19:10 Source: patient, RN notes reviewed Mode of arrival: ambulatory Limitations: no limitations - History of Present Illness Initial comments: Is a pleasant 71-year-old female with history of diabetes and previous renal transplant. Patient presents to the emergency today stating that she had a fever of 102F at home. She took Tylenol which abated the fever. Patient states also had some back aching. Patient leaves she might have a urinary tract infection as her urine has been more concentrated. She is denying any abdominal pain. No chest pain or shortness of breath. Patient states that she has chronic postnasal drainage which she has had for 2 or 3 years. She denies any productive cough. No shortness of breath. No hematuria. No changes in bowel movements. She states that she did have diarrhea a few weeks ago. States that she has some generalized aches and pains but nothing out of the ordinary. No vision or hearing changes. No headache. No neck stiffness. No difficulty with speech. Patient states that she does have chronic skin itching but no change from baseline. No palpitations. No nausea or vomiting. No constipation. No hematemesis or coffee ground emesis. No melena or hematochezia. - Related Data Home Medications Medication Instructions Recorded Confirmed Cholecalciferol [Vitamin D3 (25 1,000 unit PO BID 03/14/14 07/14/20 Mcg = 1000 Iu)] Mycophenolate Sodium Dr [Myfortic] 360 mg PO BID 03/14/14 07/14/20 INSULIN LISPRO (HumaLOG) [humaLOG] See Protocol SQ ACHS 03/21/16 07/14/20 Tacrolimus [Prograf] 2 mg PO DAILY 09/13/17 07/14/20 Isosorbide Mononitrate ER [Imdur] 30 mg PO DAILY 11/26/17 07/14/20 Latanoprost Ophth [Xalatan 0.005%] 1 drop BOTH EYES 04/06/18 07/14/20 Docusate [Colace] 100 mg PO DAILY 11/27/19 07/14/20 Ferrous Sulfate [Iron (65 MG 325 mg PO DAILY 11/27/19 07/14/20 Elemental)] Fluticasone Propionate [Flonase 1 spray EA NOSTRIL HS 04/18/20 07/14/20 Allergy Relief] Insulin Glargine,Hum.rec.anlog 30 units SQ HS 04/18/20 07/14/20 [Brooke Alicjanelsy] Magnesium Oxide 400 mg PO BID 04/18/20 07/14/20 Tacrolimus [Prograf] 1 mg PO HS 04/18/20 07/14/20 Previous Rx's Medication Instructions Recorded Aspirin 81 mg PO DAILY #30 chew 04/22/20 Atorvastatin [Lipitor] 40 mg PO HS #30 tab 04/22/20 Nitroglycerin Sl Tabs [Nitrostat] 0.4 mg SUBLINGUAL Q5M PRN #20 tab 04/22/20 Cefdinir 300 mg PO Q12HR #14 cap 06/09/22 Allergies Allergy/AdvReac Type Severity Reaction Status Date / Time adhesive tape Allergy tears skin Verified 06/09/22 16:50 metoclopramide HCl Allergy Unknown Verified 06/09/22 16:50 [From Reglan] grapefruit [Grapefruit] AdvReac reaction Verified 06/09/22 16:50 with simvastatin ibuprofen AdvReac kidney Verified 06/09/22 16:50 failure/transplant ropinirole [From Requip] AdvReac LEG CRAMPS Verified 06/09/22 16:50 nupur Allergy Rash/Hives Uncoded 06/09/22 16:50 Review of Systems ROS Statement: Those systems with pertinent positive or pertinent negative responses have been documented in the HPI. ROS Other: All systems not noted in ROS Statement are negative. Past Medical History Past Medical History: Coronary Artery Disease (CAD), Diabetes Mellitus, Eye Di sorder, Hyperlipidemia, Hypertension, Myocardial Infarction ([place]), Renal Disease, Skin Disorder Additional Past Medical History / Comment(s): R eye glaucoma, retinal bleed and little vision, renal failure Stage 3 - R renal transplant in 2008, UTIs with sepsis, Last Myocardial Infarction Date:: 2009 History of Any Multi-Drug Resistant Organisms: None Reported Past Surgical History: Appendectomy, Cholecystectomy, Coronary Bypass/CABG, Heart Catheterization, Hernia Repair, Hysterectomy Additional Past Surgical History / Comment(s): 2009 right kidney transplant, 4 vessel CABG in 2009, umbilical hernia repair, colonoscopies, silvia cataract removed, R eye laser surgeries. Past Anesthesia/Blood Transfusion Reactions: No Reported Reaction Additional Past Anesthesia/Blood Transfusion Reaction / Comment(s): unknown Past Psychological History: No Psychological Hx Reported Smoking Status: Former smoker Past Alcohol Use History: None Reported Past Drug Use History: None Reported - Past Family History Brother(s) Family Medical History: Cancer Additional Family Medical History / Comment(s): one brother had kidney cancer. one brother had prostate cancer Mother Family Medical History: Coronary Artery Disease (CAD) Additional Family Medical History / Comment(s): mom had heart disease Father Family Medical History: Cancer Additional Family Medical History / Comment(s): lung and pancreatic cancer General Exam - General Exam Comments Initial Comments: Vital signs stable, patient afebrile. Patient does not appear to be ill or toxic. Patient in no distress at the time I'm seeing her. Appears to be adequately hydrated. No mottling. Normal capillary refill. Limitations: no limitations General appearance: alert, in no apparent distress, obese Head exam: Present: atraumatic, normocephalic, normal inspection Eye exam: Present: normal appearance, PERRL, EOMI. Absent: scleral icterus, conjunctival injection, periorbital swelling ENT exam: Present: normal exam, normal oropharynx, mucous membranes moist, normal external ear exam. Absent: mucous membranes dry Neck exam: Present: normal inspection. Absent: tenderness, meningismus, lymphadenopathy Respiratory exam: Present: normal lung sounds bilaterally. Absent: respiratory distress, wheezes, rales, rhonchi, stridor Cardiovascular Exam: Present: regular rate, normal rhythm, normal heart sounds. Absent: systolic murmur, diastolic murmur, rubs, gallop, clicks GI/Abdominal exam: Present: soft, normal bowel sounds. Absent: distended, tenderness, guarding, rebound, rigid Extremities exam: Present: normal inspection, full ROM, normal capillary refill. Absent: tenderness, pedal edema, joint swelling, calf tenderness Back exam: Present: normal inspection Neurological exam: Present: alert, oriented X3, CN II-XII intact Psychiatric exam: Present: normal affect, normal mood Skin exam: Present: warm, dry, intact, normal color, other (Patient does have some excoriations to the skin however no evidence of secondary infectious process.). Absent: rash, erythema, urticaria Course Vital Signs 06/09/22 06/09/22 06/09/22 16:47 19:00 20:00 Temperature 97.8 F 99.4 F Pulse Rate 86 87 84 Respiratory 20 17 Rate Blood Pressure 133/71 144/79 158/80 O2 Sat by Pulse 97 97 Oximetry - Reevaluation(s) Reevaluation #1: 06/09/22 21:20 Medical record is reviewed Symptoms are improved here in the emergency department Patient is informed of results and questions answered Patient in no distress Reevaluation #2: 06/09/22 21:43 Medical record is reviewed Symptoms are improved here in the emergency department Patient is informed of results and questions answered Patient in no distress Medical Decision Making - Medical Decision Making Nontoxic appearing female presents with fever and some aching to her back as well as minimal aches and pains elsewhere. CBC was normal as ordered in triage. Given these findings, viral syndrome is possible. Patient in no distress at all. Appears well-hydrated. COVID-19 test is ordered. Of course urinalysis will be obtained. Patient's urinalysis shows evidence of urinary tract infection. Patient was reevaluated and was in no distress. Vital signs stable, patient afebrile. We'll treat with ceftriaxone. I did review the patient's last urine cultures. Last culture for enterococcus faecalis didn't specifically stay ceftriaxone. However the patient's previous urine culture was susceptible to this. I'm going to treat the patient with Omnicef 300 mg twice a day for 7 days and have her follow-up with her regular physician. Patient was told to return to the ER for any signs or symptoms worsen. Told to return immediately if any other problems arise. All questions answered. Treatment plan discussed. Patient in agreement Every effort has been made to ensure accuracy of this dictation. However, due to the limitations of electronic medical records and dictation devices, errors in charting still occur. Supervising physician Dr. Mccain - Lab Data Result diagrams: 06/09/22 17:31 06/09/22 17:31 Lab Results 06/09/22 06/09/22 06/09/22 Range/Units 17:31 17:31 17:31 WBC 8.9 (3.8-10.6) k/uL RBC 5.30 (3.80-5.40) m/uL Hgb 15.1 (11.4-16.0) gm/dL Hct 46.2 H (34.0-46.0) % MCV 87.1 (80.0-100.0) fL MCH 28.5 (25.0-35.0) pg MCHC 32.7 (31.0-37.0) g/dL RDW 12.8 (11.5-15.5) % Plt Count 280 (150-450) k/uL MPV 8.1 Neutrophils % 77 % Lymphocytes % 14 % Monocytes % 4 % Eosinophils % 3 % Basophils % 1 % Neutrophils # 6.8 (1.3-7.7) k/uL Lymphocytes # 1.3 (1.0-4.8) k/uL Monocytes # 0.3 (0-1.0) k/uL Eosinophils # 0.3 (0-0.7) k/uL Basophils # 0.1 (0-0.2) k/uL PT 10.7 (9.0-12.0) sec INR 1.0 (<1.2) APTT 23.7 (22.0-30.0) sec Sodium 133 L (137-145) mmol/L Potassium 4.6 (3.5-5.1) mmol/L Chloride 94 L (98-107) mmol/L Carbon Dioxide 28 (22-30) mmol/L Anion Gap 11 mmol/L BUN 16 (7-17) mg/dL Creatinine 1.26 H (0.52-1.04) mg/dL Est GFR (CKD-EPI)AfAm 49 (>60 ml/min/1.73 sqM) Est GFR (CKD-EPI)NonAf 42 (>60 ml/min/1.73 sqM) Glucose 316 H (74-99) mg/dL Plasma Lactic Acid Silvino (0.7-2.0) mmol/L Calcium 9.1 (8.4-10.2) mg/dL Phosphorus (2.5-4.5) mg/dL Magnesium (1.6-2.3) mg/dL Total Bilirubin 0.7 (0.2-1.3) mg/dL AST 20 (14-36) U/L ALT 12 (4-34) U/L Alkaline Phosphatase 124 (38-126) U/L Troponin I (0.000-0.034) ng/mL Total Protein 7.9 (6.3-8.2) g/dL Albumin 3.8 (3.5-5.0) g/dL Urine Color Urine Appearance (Clear) Urine pH (5.0-8.0) Ur Specific [place] (1.001-1.035) Urine Protein (Negative) Urine Glucose (UA) (Negative) Urine Ketones (Negative) Urine Blood (Negative) Urine Nitrite (Negative) Urine Bilirubin (Negative) Urine Urobilinogen (<2.0) mg/dL Ur Leukocyte Esterase (Negative) Urine RBC (0-5) /hpf Urine WBC (0-5) /hpf Urine WBC Clumps (None) /hpf Ur Squamous Epith Cells (0-4) /hpf Urine Bacteria (None) /hpf Urine Mucus (None) /hpf Urine Yeast (Budding) (None) /hpf Coronavirus (PCR) (Not Detectd) 06/09/22 06/09/22 06/09/22 Range/Units 17:31 17:31 19:15 WBC (3.8-10.6) k/uL RBC (3.80-5.40) m/uL Hgb (11.4-16.0) gm/dL Hct (34.0-46.0) % MCV (80.0-100.0) fL MCH (25.0-35.0) pg MCHC (31.0-37.0) g/dL RDW (11.5-15.5) % Plt Count (150-450) k/uL MPV Neutrophils % % Lymphocytes % % Monocytes % % Eosinophils % % Basophils % % Neutrophils # (1.3-7.7) k/uL Lymphocytes # (1.0-4.8) k/uL Monocytes # (0-1.0) k/uL Eosinophils # (0-0.7) k/uL Basophils # (0-0.2) k/uL PT (9.0-12.0) sec INR (<1.2) APTT (22.0-30.0) sec Sodium (137-145) mmol/L Potassium (3.5-5.1) mmol/L Chloride (98-107) mmol/L Carbon Dioxide (22-30) mmol/L Anion Gap mmol/L BUN (7-17) mg/dL Creatinine (0.52-1.04) mg/dL Est GFR (CKD-EPI)AfAm (>60 ml/min/1.73 sqM) Est GFR (CKD-EPI)NonAf (>60 ml/min/1.73 sqM) Glucose (74-99) mg/dL Plasma Lactic Acid Silvino 0.9 (0.7-2.0) mmol/L Calcium (8.4-10.2) mg/dL Phosphorus (2.5-4.5) mg/dL Magnesium (1.6-2.3) mg/dL Total Bilirubin (0.2-1.3) mg/dL AST (14-36) U/L ALT (4-34) U/L Alkaline Phosphatase (38-126) U/L Troponin I 0.018 (0.000-0.034) ng/mL Total Protein (6.3-8.2) g/dL Albumin (3.5-5.0) g/dL Urine Color Urine Appearance (Clear) Urine pH (5.0-8.0) Ur Specific [place] (1.001-1.035) Urine Protein (Negative) Urine Glucose (UA) (Negative) Urine Ketones (Negative) Urine Blood (Negative) Urine Nitrite (Negative) Urine Bilirubin (Negative) Urine Urobilinogen (<2.0) mg/dL Ur Leukocyte Esterase (Negative) Urine RBC (0-5) /hpf Urine WBC (0-5) /hpf Urine WBC Clumps (None) /hpf Ur Squamous Epith Cells (0-4) /hpf Urine Bacteria (None) /hpf Urine Mucus (None) /hpf Urine Yeast (Budding) (None) /hpf Coronavirus (PCR) Not Detected (Not Detectd) 06/09/22 06/09/22 Range/Units 19:50 20:45 WBC (3.8-10.6) k/uL RBC (3.80-5.40) m/uL Hgb (11.4-16.0) gm/dL Hct (34.0-46.0) % MCV (80.0-100.0) fL MCH (25.0-35.0) pg MCHC (31.0-37.0) g/dL RDW (11.5-15.5) % Plt Count (150-450) k/uL MPV Neutrophils % % Lymphocytes % % Monocytes % % Eosinophils % % Basophils % % Neutrophils # (1.3-7.7) k/uL Lymphocytes # (1.0-4.8) k/uL Monocytes # (0-1.0) k/uL Eosinophils # (0-0.7) k/uL Basophils # (0-0.2) k/uL PT (9.0-12.0) sec INR (<1.2) APTT (22.0-30.0) sec Sodium (137-145) mmol/L Potassium (3.5-5.1) mmol/L Chloride (98-107) mmol/L Carbon Dioxide (22-30) mmol/L Anion Gap mmol/L BUN (7-17) mg/dL Creatinine (0.52-1.04) mg/dL Est GFR (CKD-EPI)AfAm (>60 ml/min/1.73 sqM) Est GFR (CKD-EPI)NonAf (>60 ml/min/1.73 sqM) Glucose (74-99) mg/dL Plasma Lactic Acid Silvino (0.7-2.0) mmol/L Calcium (8.4-10.2) mg/dL Phosphorus 3.0 (2.5-4.5) mg/dL Magnesium 1.4 L (1.6-2.3) mg/dL Total Bilirubin (0.2-1.3) mg/dL AST (14-36) U/L ALT (4-34) U/L Alkaline Phosphatase (38-126) U/L Troponin I (0.000-0.034) ng/mL Total Protein (6.3-8.2) g/dL Albumin (3.5-5.0) g/dL Urine Color Yellow Urine Appearance Turbid H (Clear) Urine pH 6.5 (5.0-8.0) Ur Specific [place] 1.017 (1.001-1.035) Urine Protein 1+ H (Negative) Urine Glucose (UA) 3+ H (Negative) Urine Ketones Negative (Negative) Urine Blood Small H (Negative) Urine Nitrite Positive H (Negative) Urine Bilirubin Negative (Negative) Urine Urobilinogen <2.0 (<2.0) mg/dL Ur Leukocyte Esterase Large H (Negative) Urine RBC 10 H (0-5) /hpf Urine WBC >182 H (0-5) /hpf Urine WBC Clumps Many H (None) /hpf Ur Squamous Epith Cells 5 H (0-4) /hpf Urine Bacteria Occasional H (None) /hpf Urine Mucus Rare H (None) /hpf Urine Yeast (Budding) Many H (None) /hpf Coronavirus (PCR) (Not Detectd) Disposition Clinical Impression: Generalized weakness, Hypomagnesemia, Urinary tract infection Disposition: HOME SELF-CARE Condition: Good Instructions (If sedation given, give patient instructions): Urinary Tract Infection in Women (ED), Hypomagnesemia (ED) Additional Instructions: Follow-up with your regular physician as directed. Return to the ER immediately if any symptoms worsen, new symptoms arise, or any other problems develop. Take all antibiotics as directed. Make sure you're taking her magnesium supplementation as directed. Prescriptions: Cefdinir 300 mg PO Q12HR #14 cap Is patient prescribed a controlled substance at d/c from ED?: No Referrals: Joel Wong DO [Primary Care Provider] - 1-2 days Time of Disposition: 21:44
[2022-06-09 20:05] VITALS: RESP 17; TEMP 99.4
[2022-06-09 20:31] LABS: Magnesium 1.4 mg/dL (1.6-2.3)
[2022-06-09 21:04] VITALS: BP 158/80; PULSE 84
[2022-06-09 21:11] LABS: Appearance,Urine Turbid (Clear); Bacteria,Urine Occasional /hpf; Bilirubin,Urine Negative (Negative); Blood,Urine Small (Negative); Budding Yeast,Urine Many /hpf; Color,Urine Yellow; Glucose,Urine (UA) 3+ (Negative); Ketones,Urine Negative (Negative); Leukocyte Esterase,Urine Large (Negative); Mucus,Urine Rare /hpf; Nitrite,Urine Positive (Negative); PH, Urine 6.5 (5.0-8.0); Protein,Urine 1+ (Negative); RBC,Urine 10 /hpf (0-5); Specific Gravity,Urine 1.017 (1.001-1.035); Squamous Epithelial Cell,Urine 5 /hpf (0-4); Urobilinogen,Urine <2.0 mg/dL (<2.0); WBC,Urine >182 /hpf (0-5)
[2022-06-09] MEDS ORDERED: MAGNESIUM OXIDE 400 MG TAB PO STA (21:20)
[2022-06-09] MEDS ORDERED: cefTRIAXone IN SWFI 1,000 MG/10 ML SYRINGE IVP ONE (21:38)
== END 2022-06-09 22:03 | disposition home or self-care (01) ==
LOC: EC 16:20
DX: N39.0 Urinary tract infection, site not specified (principal); E83.42 Hypomagnesemia; E11.9 Type 2 diabetes mellitus without complications; I10 Essential (primary) hypertension; E78.5 Hyperlipidemia, unspecified; Z82.49 Family history of ischemic heart disease and other diseases of the circulatory system; Z87.891 Personal history of nicotine dependence; Z20.822 Contact with and (suspected) exposure to COVID-19; Z91.040 Latex allergy status; Z88.8 Allergy status to other drugs, medicaments and biological substances; Z91.018 Allergy to other foods; Z88.3 Allergy status to other anti-infective agents
CPT/HCPCS: 36415; 93005; 80053; 83605; 83735; 84100; 84484; 85025; 85610; 85730; 81001; 87086; 87635; 71046; 99285; 96374; 96361; J0696

== ENCOUNTER 2023-07-30 22:02 | Emergency (ER) | payer MEDICARE ==
[2023-07-30 22:08] LABS: Glucose,Whole Blood 122 mg/dL (70-110)
--- NOTE | 2023-07-30 22:29 | ED ---
General Adult HPI - General Chief complaint: Recheck/Abnormal Lab/Rx Stated complaint: Low blood sugar Time Seen by Provider: 07/30/23 22:05 Source: EMS Mode of arrival: EMS - History of Present Illness Initial comments: 72-year-old female with past medical history of diabetes who presents to emergency department with altered mental status. The patient reportedly did not eat much for dinner and took her insulin. Her son found her unresponsive in her chair. They called EMS and found that her glucose was 60. She was given an amp of dextrose and had improvement in her mentation. She did not suffer any trauma during the unresponsive episode. Patient originally felt in a fog however symptoms are slowly improving. She admits to some nausea without vomiting. No chest pain or shortness of breath. No headaches or visual changes. No unilateral numbness or weakness. Denies abdominal pain. No diarrhea or constipation. No changes in her urination. She admits that she has been attempting to eat smaller meals. Denies any excessive insulin intake. No recent medication changes. No other alleviating, precipitating or modifying factors - Related Data Home Medications Medication Instructions Recorded Confirmed Cholecalciferol [Vitamin D3 (25 1,000 unit PO BID 03/14/14 07/14/20 Mcg = 1000 Iu)] Mycophenolate Sodium Dr [Myfortic] 360 mg PO BID 03/14/14 07/14/20 INSULIN LISPRO (HumaLOG) [humaLOG] See Protocol SQ ACHS 03/21/16 07/14/20 Tacrolimus [Prograf] 2 mg PO DAILY 09/13/17 07/14/20 Isosorbide Mononitrate ER [Imdur] 30 mg PO DAILY 11/26/17 07/14/20 Latanoprost Ophth [Xalatan 0.005%] 1 drop BOTH EYES 04/06/18 07/14/20 Docusate [Colace] 100 mg PO DAILY 11/27/19 07/14/20 Ferrous Sulfate [Iron (65 MG 325 mg PO DAILY 11/27/19 07/14/20 Elemental)] Fluticasone Propionate [Flonase 1 spray EA NOSTRIL 04/18/20 07/14/20 Allergy Relief] Insulin Glargine,Hum.rec.anlog 30 units SQ 04/18/20 07/14/20 [Toujeo Solostar] Magnesium Oxide 400 mg PO BID 04/18/20 07/14/20 Tacrolimus [Prograf] 1 mg PO HS 04/18/20 07/14/20 Previous Rx's Medication Instructions Recorded Aspirin 81 mg PO DAILY #30 chew 04/22/20 Atorvastatin [Lipitor] 40 mg PO HS #30 tab 04/22/20 Nitroglycerin Sl Tabs [Nitrostat] 0.4 mg SUBLINGUAL Q5M PRN #20 tab 04/22/20 Cefdinir 300 mg PO Q12HR #14 cap 06/09/22 Allergies Allergy/AdvReac Type Severity Reaction Status Date / Time adhesive tape Allergy tears skin Verified 07/30/23 22:09 metoclopramide HCl Allergy Unknown Verified 07/30/23 22:09 [From Reglan] grapefruit [Grapefruit] AdvReac reaction Verified 07/30/23 22:09 with simvastatin ibuprofen AdvReac kidney Verified 07/30/23 22:09 failure/transplant ropinirole [From Requip] AdvReac LEG CRAMPS Verified 07/30/23 22:09 nupur Allergy Rash/Hives Uncoded 07/30/23 22:09 Review of Systems ROS Statement: Those systems with pertinent positive or pertinent negative responses have been documented in the HPI. ROS Other: All systems not noted in ROS Statement are negative. Past Medical History Past Medical History: Coronary Artery Disease (CAD), Diabetes Mellitus, Eye Disorder, Hyperlipidemia, Hypertension, Myocardial Infarction (ND), Renal Disease, Skin Disorder Additional Past Medical History / Comment(s): R eye glaucoma, retinal bleed and little vision, renal failure Stage 3 - R renal transplant in 2008, UTIs with sepsis, Last Myocardial Infarction Date:: 2009 History of Any Multi-Drug Resistant Organisms: None Reported Past Surgical History: Appendectomy, Cholecystectomy, Coronary Bypass/CABG, Heart Catheterization, Hernia Repair, Hysterectomy Additional Past Surgical History / Comment(s): 2009 right kidney transplant, 4 vessel CABG in 2009, umbilical hernia repair, colonoscopies, silvia cataract removed, R eye laser surgeries. Past Anesthesia/Blood Transfusion Reactions: No Reported Reaction Additional Past Anesthesia/Blood Transfusion Reaction / Comment(s): unknown Past Psychological History: No Psychological Hx Reported Smoking Status: Former smoker Past Alcohol Use History: None Reported Past Drug Use History: None Reported - Past Family History Brother(s) Family Medical History: Cancer Additional Family Medical History / Comment(s): one brother had kidney cancer. one brother had prostate cancer Mother Family Medical History: Coronary Artery Disease (CAD) Additional Family Medical History / Comment(s): mom had heart disease Father Family Medical History: Cancer Additional Family Medical History / Comment(s): lung and pancreatic cancer General Exam General appearance: alert, in no apparent distress Head exam: Present: atraumatic, normocephalic, normal inspection Eye exam: Present: normal appearance, PERRL, EOMI. Absent: scleral icterus, conjunctival injection, periorbital swelling ENT exam: Present: normal exam, mucous membranes moist Neck exam: Present: normal inspection. Absent: tenderness, meningismus, lymphadenopathy Respiratory exam: Present: normal lung sounds bilaterally. Absent: respiratory distress, wheezes, rales, rhonchi, stridor Cardiovascular Exam: Present: regular rate, normal rhythm, normal heart sounds. Absent: systolic murmur, diastolic murmur, rubs, gallop, clicks GI/Abdominal exam: Present: soft, normal bowel sounds. Absent: distended, tenderness, guarding, rebound, rigid Extremities exam: Present: normal inspection, full ROM, normal capillary refill. Absent: tenderness, pedal edema, joint swelling, calf tenderness Back exam: Present: normal inspection Neurological exam: Present: alert, oriented X3, CN II-XII intact Psychiatric exam: Present: normal affect, normal mood Skin exam: Present: warm, dry, intact, normal color. Absent: rash Course Vital Signs 07/30/23 07/31/23 22:03 02:03 Temperature 98 F 98.0 F Pulse Rate 89 93 Respiratory 18 16 Rate Blood Pressure 155/70 161/68 O2 Sat by Pulse 98 97 Oximetry Medical Decision Making - Medical Decision Making Was pt. sent in by a medical professional or institution (, PA, AGENCY SALES DEVELOPMENT ASSOCIATE, urgent care, hospital, or detention...) When possible be specific @ -No Did you speak to anyone other than the patient for history (EMS, parent, family, police, friend...)? What history was obtained from this source @ -EMS and the patient's son Did you review nursing and triage notes (agree or disagree)? Why? @ -I reviewed and agree with nursing and triage notes Were old charts reviewed (outside hosp., previous admission, EMS record, old EKG, old radiological studies, urgent care reports/EKG's, detention records)? Report findings @ -No old charts were reviewed Differential Diagnosis (chest pain, altered mental status, abdominal pain women, abdominal pain men, vaginal bleeding, weakness, fever, dyspnea, syncope, headache, dizziness, GI bleed, back pain, seizure, CVA, palpatations, mental health, musculoskeletal)? @ -Differential Altered Mental Status: Hypoglycemia, DKA, hypercapnia, ETOH, overdose, CO poisoning, trauma, myxedema coma, HTN encephalopathy, infection, encephalitis, psychosis, intercranial hemorrhage, hepatic encephalopathy, meningitis, CVA, this is not meant to be an all-inclusive list EKG interpreted by me (3pts min.). @ -Yes and demonstrates sinus rhythm with a rate of 78. MA interval 188. QRS 119. QTC of 426. No acute ST segment elevation or depression X-rays interpreted by me (1pt min.). @ -None done CT interpreted by me (1pt min.). @ -None done U/S interpreted by me (1pt. min.). @ -None done What testing was considered but not performed or refused? (CT, X-rays, U/S, labs)? Why? @ -None What meds were considered but not given or refused? Why? @ -None Did you discuss the management of the patient with other professionals (professionals i.e. , PA, AGENCY SALES DEVELOPMENT ASSOCIATE, lab, RT, psych nurse, director social, tractor crane engineer, teacher, security flex officer, window caser)? Give summary @ -No Was smoking cessation discussed for >3mins.? @ -No Was critical care preformed (if so, how long)? @ -No Were there social determinants of health that impacted care today? How? (Homel essness, low income, unemployed, alcoholism, drug addiction, transportation, low edu. Level, literacy, decrease access to med. care, residential, rehab)? @ -No Was there de-escalation of care discussed even if they declined (Discuss DNR or withdrawal of care, Hospice)? DNR status @ -No What co-morbidities impacted this encounter? (DM, HTN, Smoking, COPD, CAD, Cancer, CVA, ARF, Chemo, Hep., AIDS, mental health diagnosis, sleep apnea, morbid obesity)? @ -Diabetes Was patient admitted / discharged? Hospital course, mention meds given and route, prescriptions, significant lab abnormalities, going to OR and other pertinent info. @ -Upon arrival patient was placed into room 4. A thorough history and physical exam was performed. Patient's glucose is low upon arrival. She is given some juice. Laboratory studies are conducted. Patient does have improvement in her glucose however it does fall again and she is given a second amp of dextrose and additional food eat by mouth. Patient is observed in the emergency department for 3 hours. She did have 3 consecutive glucose checks that demonstrated a stable blood sugar. She does remain alert and oriented. I discussed the results with the patient. She feels comfortable going home at this time. Instructed that she must eat before she takes her insulin. Follow- up with her doctor to talk about medication adjustments and return for any new or worsening symptoms. Patient was agreeable to plan she is discharged in stable condition Undiagnosed new problem with uncertain prognosis? @ -Yes Drug Therapy requiring intensive monitoring for toxicity (Heparin, Nitro, Insulin, Cardizem)? @ -No Were any procedures done? @ -No Diagnosis/symptom? @ -Acute encephalopathy, acute hypoglycemia, history of diabetes mellitus Acute, or Chronic, or Acute on Chronic? @ -Acute Uncomplicated (without systemic symptoms) or Complicated (systemic symptoms)? @ -Complicated Side effects of treatment? @ -No Exacerbation, Progression, or Severe Exacerbation? @ -No Poses a threat to life or bodily function? How? (Chest pain, USA, ND, pneumonia, PE, COPD, DKA, ARF, appy, cholecystitis, CVA, Diverticulitis, Homicidal, Suicidal, threat to staff... and all critical care pts) @ -No - Lab Data Result diagrams: 07/30/23 22:29 07/30/23 22:29 Lab Results 07/30/23 07/30/23 07/30/23 Range/Units 22:07 22:29 22:29 WBC 8.0 (3.8-10.6) k/uL RBC 4.33 (3.80-5.40) m/uL Hgb 12.6 (11.4-16.0) gm/dL Hct 38.1 (34.0-46.0) % MCV 87.9 (80.0-100.0) fL MCH 29.0 (25.0-35.0) pg MCHC 33.0 (31.0-37.0) g/dL RDW 13.1 (11.5-15.5) % Plt Count 176 (150-450) k/uL MPV 8.8 Neutrophils % 65 % Lymphocytes % 20 % Monocytes % 6 % Eosinophils % 6 % Basophils % 0 % Neutrophils # 5.3 (1.3-7.7) k/uL Lymphocytes # 1.6 (1.0-4.8) k/uL Monocytes # 0.5 (0-1.0) k/uL Eosinophils # 0.5 (0-0.7) k/uL Basophils # 0.0 (0-0.2) k/uL Sodium 141 (137-145) mmol/L Potassium 3.4 L (3.5-5.1) mmol/L Chloride 105 (98-107) mmol/L Carbon Dioxide 25 (22-30) mmol/L Anion Gap 11 mmol/L BUN 28 H (7-17) mg/dL Creatinine 1.28 H (0.52-1.04) mg/dL Est GFR (CKD-EPI)AfAm 48 (>60 ml/min/1.73 sqM) Est GFR (CKD-EPI)NonAf 42 (>60 ml/min/1.73 sqM) Glucose 58 L (74-99) mg/dL POC Glucose (mg/dL) 122 H (70-110) mg/dL POC Glu Sales And Marketing Engineer ID Debbie, Juliann Calcium 9.2 (8.4-10.2) mg/dL Total Bilirubin 0.4 (0.2-1.3) mg/dL AST 23 (14-36) U/L ALT 16 (4-34) U/L Alkaline Phosphatase 75 (38-126) U/L Troponin I (0.000-0.034) ng/mL Total Protein 7.0 (6.3-8.2) g/dL Albumin 3.4 L (3.5-5.0) g/dL 07/30/23 07/30/23 07/31/23 Range/Units 22:29 23:29 00:11 WBC (3.8-10.6) k/uL RBC (3.80-5.40) m/uL Hgb (11.4-16.0) gm/dL Hct (34.0-46.0) % MCV (80.0-100.0) fL MCH (25.0-35.0) pg MCHC (31.0-37.0) g/dL RDW (11.5-15.5) % Plt Count (150-450) k/uL MPV Neutrophils % % Lymphocytes % % Monocytes % % Eosinophils % % Basophils % % Neutrophils # (1.3-7.7) k/uL Lymphocytes # (1.0-4.8) k/uL Monocytes # (0-1.0) k/uL Eosinophils # (0-0.7) k/uL Basophils # (0-0.2) k/uL Sodium (137-145) mmol/L Potassium (3.5-5.1) mmol/L Chloride (98-107) mmol/L Carbon Dioxide (22-30) mmol/L Anion Gap mmol/L BUN (7-17) mg/dL Creatinine (0.52-1.04) mg/dL Est GFR (CKD-EPI)AfAm (>60 ml/min/1.73 sqM) Est GFR (CKD-EPI)NonAf (>60 ml/min/1.73 sqM) Glucose (74-99) mg/dL POC Glucose (mg/dL) 57 L 122 H (70-110) mg/dL POC Glu Sales And Marketing Engineer Errol Randle Riva Calcium (8.4-10.2) mg/dL Total Bilirubin (0.2-1.3) mg/dL AST (14-36) U/L ALT (4-34) U/L Alkaline Phosphatase (38-126) U/L Troponin I <0.012 (0.000-0.034) ng/mL Total Protein (6.3-8.2) g/dL Albumin (3.5-5.0) g/dL 07/31/23 07/31/23 Range/Units 01:04 01:48 WBC (3.8-10.6) k/uL RBC (3.80-5.40) m/uL Hgb (11.4-16.0) gm/dL Hct (34.0-46.0) % MCV (80.0-100.0) fL MCH (25.0-35.0) pg MCHC (31.0-37.0) g/dL RDW (11.5-15.5) % Plt Count (150-450) k/uL MPV Neutrophils % % Lymphocytes % % Monocytes % % Eosinophils % % Basophils % % Neutrophils # (1.3-7.7) k/uL Lymphocytes # (1.0-4.8) k/uL Monocytes # (0-1.0) k/uL Eosinophils # (0-0.7) k/uL Basophils # (0-0.2) k/uL Sodium (137-145) mmol/L Potassium (3.5-5.1) mmol/L Chloride (98-107) mmol/L Carbon Dioxide (22-30) mmol/L Anion Gap mmol/L BUN (7-17) mg/dL Creatinine (0.52-1.04) mg/dL Est GFR (CKD-EPI)AfAm (>60 ml/min/1.73 sqM) Est GFR (CKD-EPI)NonAf (>60 ml/min/1.73 sqM) Glucose (74-99) mg/dL POC Glucose (mg/dL) 156 H 166 H (70-110) mg/dL POC Glu Sales And Marketing Engineer ID Juliann Lewis Riva Calcium (8.4-10.2) mg/dL Total Bilirubin (0.2-1.3) mg/dL AST (14-36) U/L ALT (4-34) U/L Alkaline Phosphatase (38-126) U/L Troponin I (0.000-0.034) ng/mL Total Protein (6.3-8.2) g/dL Albumin (3.5-5.0) g/dL Disposition Clinical Impression: Hypoglycemia Disposition: HOME SELF-CARE Condition: Stable Instructions (If sedation given, give patient instructions): Hypoglycemia in a Person with Diabetes (DC) Additional Instructions: Please check your sugars more closely. Follow up with your doctor and return for any new or worsening symptoms Is patient prescribed a controlled substance at d/c from ED?: No Referrals: Joel Wong DO [Primary Care Provider] - 1-2 days Time of Disposition: 01:51
[2023-07-30 23:23] LABS: Basophils % (A) 0 %; Eosinophils # (A) 0.5 k/uL (0-0.7); Eosinophils % (A) 6 %; HCT 38.1 % (34.0-46.0); HGB 12.6 gm/dL (11.4-16.0); Lymphocytes # (A) 1.6 k/uL (1.0-4.8); Lymphocytes % (A) 20 %; MCV 87.9 fL (80.0-100.0); Mean Platelet Volume 8.8; Monocytes # (A) 0.5 k/uL (0-1.0); Monocytes % (A) 6 %; Neutrophils # (A) 5.3 k/uL (1.3-7.7); Neutrophils % (A) 65 %; Platelet Count 176 k/uL (150-450); RBC 4.33 m/uL (3.80-5.40); RDW 13.1 % (11.5-15.5)
[2023-07-30 23:30] LABS: Glucose,Whole Blood 57 mg/dL (70-110)
[2023-07-30 23:32] LABS: ALT 16 U/L (4-34); AST 23 U/L (14-36); African American GFR (CKD) 48 (>60 ml/min/1.73 sqM); Albumin 3.4 g/dL (3.5-5.0); Alkaline Phosphatase 75 U/L (38-126); Anion Gap 11 mmol/L; Blood Urea Nitrogen 28 mg/dL (7-17); Calcium 9.2 mg/dL (8.4-10.2); Carbon Dioxide 25 mmol/L (22-30); Chloride 105 mmol/L (98-107); Glucose 58 mg/dL (74-99); Non-African American GFR(CKD) 42 (>60 ml/min/1.73 sqM); Potassium 3.4 mmol/L (3.5-5.1); Sodium 141 mmol/L (137-145); Total Bilirubin 0.4 mg/dL (0.2-1.3)
[2023-07-30] MEDS ORDERED: DEXTROSE 50% SYRINGE 50 ML IVP STA (23:40)
[2023-07-31 00:12] LABS: Glucose,Whole Blood 122 mg/dL (70-110)
[2023-07-31 01:06] LABS: Glucose,Whole Blood 156 mg/dL (70-110)
[2023-07-31 01:49] LABS: Glucose,Whole Blood 166 mg/dL (70-110)
[2023-07-31 02:18] VITALS: BP 161/68; PULSE 93; RESP 16; TEMP 98
== END 2023-07-31 02:15 | disposition home or self-care (01) ==
LOC: EC 22:02
DX: E11.649 Type 2 diabetes mellitus with hypoglycemia without coma (principal); E78.5 Hyperlipidemia, unspecified; I25.2 Old myocardial infarction; I25.10 Atherosclerotic heart disease of native coronary artery without angina pectoris; E11.22 Type 2 diabetes mellitus with diabetic chronic kidney disease; I12.9 Hypertensive chronic kidney disease with stage 1 through stage 4 chronic kidney disease, or unspecified chronic kidney disease; N18.30 Chronic kidney disease, stage 3 unspecified; Z87.891 Personal history of nicotine dependence; Z88.8 Allergy status to other drugs, medicaments and biological substances; Z88.6 Allergy status to analgesic agent; Z79.4 Long term (current) use of insulin; Z79.51 Long term (current) use of inhaled steroids; Z79.899 Other long term (current) drug therapy
CPT/HCPCS: 36415; 80053; 84484; 85025; 93005; 96374; 99285

== ENCOUNTER → 2024-01-04 | Outpatient (CLI) | payer MEDICARE ==
[2024-01-04 15:41] LABS: HCT 38.9 % (37.2-46.3); HGB 12.5 g/dL (12.0-15.0); MCHC 32.1 g/dL (32.0-37.0); MCV 87.2 FL (80.0-97.0); Mean Platelet Volume 10.8 FL (9.5-12.2); NRBC Per 100 WBC 0 X 10*3/uL (0.00-0.01); Platelet Count 230 X 10*3/uL (140-440); RBC 4.46 X 10*6/uL (4.10-5.20); RDW 13.1 % (11.5-14.5); WBC 5.62 X 10*3/uL (4.50-10.00)
[2024-01-04 15:42] LABS: Basophils # (A) 0.08 X 10*3/uL (0.00-0.10); Basophils % (A) 1.4 %; Eosinophils # (A) 0.49 X 10*3/uL (0.04-0.35); Eosinophils % (A) 8.7 %; Lymphocytes # (A) 1.84 X 10*3/uL (0.90-5.00); Lymphocytes % (A) 32.7 %; Monocytes # (A) 0.29 X 10*3/uL (0.20-1.00); Monocytes % (A) 5.2 %; Neutrophils # (A) 2.91 X 10*3/uL (1.80-7.70); Neutrophils % (A) 51.8 %
[2024-01-04 16:14] LABS: ALT 13 U/L (8-44); AST 19 U/L (13-35); Albumin 3.9 g/dL (3.8-4.9); Albumin/Globulin Ratio 1.15 Ratio (1.60-3.17); Alkaline Phosphatase 104 U/L (41-126); BUN/Creat Ratio 23.54 Ratio (12.00-20.00); Blood Urea Nitrogen 30.6 mg/dL (9.0-27.0); Calcium 9.5 mg/dL (8.7-10.3); Carbon Dioxide 26.6 mmol/L (21.6-31.8); Chloride 103 mmol/L (96-109); Globulin 3.4 g/dL (1.6-3.3); Glucose 97 mg/dL (70-110); LDL Cholesterol,Calculated 29.3 mg/dL (0.0-131.0); Magnesium 1.8 mg/dL (1.5-2.4); Phosphorus 3.5 mg/dL (2.4-5.1); Potassium 4.3 mmol/L (3.5-5.5); Sodium 139 mmol/L (135-145); Total Bilirubin 0.6 mg/dL (0.3-1.2); Total Protein 7.3 g/dL (6.2-8.2); Uric Acid 5.5 mg/dL (2.9-7.7); VLDL Calculation 16.34 mg/dL (5.00-40.00)
[2024-01-04 16:29] LABS: Appearance,Urine Clear (Clear); Bilirubin,Urine Negative (Negative); Blood,Urine Negative (Negative); Color,Urine Yellow (Yellow); Ketones,Urine Negative (Negative); Nitrite,Urine Negative (Negative); PH, Urine 7.5; Specific Gravity,Urine 1.019 (1.001-1.030); Urobilinogen,Urine 0.2 E.U./DL
== END | disposition home or self-care (01) ==
LOC: LABWHC1 08:54
PROVIDERS: ATTEND Family Medicine
DX: N19 Unspecified kidney failure (principal)
CPT/HCPCS: 36415; 80053; 80061; 80197; 81003; 82306; 83735; 83970; 84100; 84443; 84550; 85025

== ENCOUNTER 2024-06-21 10:28 | Inpatient (IN) | payer MEDICARE ==
--- NOTE | 2024-06-21 11:15 | ED ---
Weakness HPI - General Chief complaint: Weakness Stated complaint: weakness Time Seen by Provider: 06/21/24 10:33 Source: patient, family, EMS, RN notes reviewed Mode of arrival: EMS Limitations: no limitations - History of Present Illness Initial comments: 73-year-old female presents emergency department with chief complaint of weakness. Patient states she does not feel well over the last few days she has had nausea vomiting some bodyaches fever congestion. Patient is in no sick contacts. Denies any flank pain she does have urinary frequency without dysuria currently. Patient denies any chest pain Wenz of mild headache. Patient states that she is not kept her medications down because of the nausea. - Related Data Home Medications Medication Instructions Recorded Confirmed Cholecalciferol [Vitamin D3 (25 1,000 unit PO BID 03/14/14 07/14/20 Mcg = 1000 Iu)] Mycophenolate Sodium Dr [Myfortic] 360 mg PO BID 03/14/14 07/14/20 INSULIN LISPRO (HumaLOG) [humaLOG] See Protocol SQ ACHS 03/21/16 07/14/20 Tacrolimus [Prograf] 2 mg PO DAILY 09/13/17 07/14/20 Isosorbide Mononitrate ER [Imdur] 30 mg PO DAILY 11/26/17 07/14/20 Latanoprost Ophth [Xalatan 0.005%] 1 drop BOTH EYES HS 04/06/18 07/14/20 Docusate [Colace] 100 mg PO DAILY 11/27/19 07/14/20 Ferrous Sulfate [Iron (65 MG 325 mg PO DAILY 11/27/19 07/14/20 Elemental)] Fluticasone Propionate [Flonase 1 spray EA NOSTRIL HS 04/18/20 07/14/20 Allergy Relief] Insulin Glargine,Hum.rec.anlog 30 units SQ HS 04/18/20 07/14/20 [Brooke Solnelsy] Magnesium Oxide 400 mg PO BID 04/18/20 07/14/20 Tacrolimus [Prograf] 1 mg PO HS 04/18/20 07/14/20 Previous Rx's Medication Instructions Recorded Aspirin 81 mg PO DAILY #30 chew 04/22/20 Atorvastatin [Lipitor] 40 mg PO HS #30 tab 04/22/20 Nitroglycerin Sl Tabs [Nitrostat] 0.4 mg SUBLINGUAL Q5M PRN #20 tab 04/22/20 Cefdinir 300 mg PO Q12HR #14 cap 06/09/22 Allergies Allergy/AdvReac Type Severity Reaction Status Date / Time adhesive tape Allergy tears skin Verified 06/21/24 10:45 metoclopramide HCl Allergy Unknown Verified 06/21/24 10:45 [From Reglan] grapefruit [Grapefruit] AdvReac reaction Verified 06/21/24 10:45 with simvastatin ibuprofen AdvReac kidney Verified 06/21/24 10:45 failure/transplant ropinirole [From Requip] AdvReac LEG CRAMPS Verified 06/21/24 10:45 nupur Allergy Rash/Hives Uncoded 06/21/24 10:45 Review of Systems ROS Statement: Those systems with pertinent positive or pertinent negative responses have been documented in the HPI. ROS Other: All systems not noted in ROS Statement are negative. Past Medical History Past Medical History: Coronary Artery Disease (CAD), Diabetes Mellitus, Eye Disorder, Hyperlipidemia, Hypertension, Myocardial Infarction ([place]), Renal Disease, Skin Disorder Additional Past Medical History / Comment(s): R eye glaucoma, retinal bleed and little vision, renal failure Stage 3 - R renal transplant in 2008, UTIs with sepsis, Last Myocardial Infarction Date:: 2009 History of Any Multi-Drug Resistant Organisms: None Reported Past Surgical History: Appendectomy, Cholecystectomy, Coronary Bypass/CABG, Heart Catheterization, Hernia Repair, Hysterectomy Additional Past Surgical History / Comment(s): 2008 right kidney transplant, 4 vessel CABG in 2009, umbilical hernia repair, colonoscopies, silvia cataract removed, R eye laser surgeries. Past Anesthesia/Blood Transfusion Reactions: No Reported Reaction Additional Past Anesthesia/Blood Transfusion Reaction / Comment(s): unknown Past Psychological History: No Psychological Hx Reported Smoking Status: Former smoker Past Alcohol Use History: None Reported Past Drug Use History: None Reported - Past Family History Brother(s) Family Medical History: Cancer Additional Family Medical History / Comment(s): one brother had kidney cancer. one brother had prostate cancer Mother Family Medical History: Coronary Artery Disease (CAD) Additional Family Medical History / Comment(s): mom had heart disease Father Family Medical History: Cancer Additional Family Medical History / Comment(s): lung and pancreatic cancer General Exam Limitations: no limitations General appearance: alert, in no apparent distress Head exam: Present: atraumatic, normocephalic, normal inspection Eye exam: Present: normal appearance, PERRL, EOMI. Absent: scleral icterus, conjunctival injection, periorbital swelling ENT exam: Present: normal exam, normal oropharynx, mucous membranes moist Neck exam: Present: normal inspection, full ROM. Absent: tenderness, meningismus, lymphadenopathy Respiratory exam: Present: normal lung sounds bilaterally. Absent: respiratory distress, wheezes, rales, rhonchi, stridor Cardiovascular Exam: Present: regular rate, normal rhythm, normal heart sounds. Absent: systolic murmur, diastolic murmur, rubs, gallop, clicks GI/Abdominal exam: Present: soft, normal bowel sounds. Absent: distended, tenderness, guarding, rebound, rigid Back exam: Absent: CVA tenderness (R), CVA tenderness (L) Neurological exam: Present: alert Course Vital Signs 06/21/24 10:43 Temperature 99.7 F H Pulse Rate 90 Respiratory 19 Rate Blood Pressure 165/72 O2 Sat by Pulse 95 Oximetry Medical Decision Making - Medical Decision Making Was pt. sent in by a medical professional or institution (, PA, METALLURGICAL INSPECTOR, urgent care, hospital, or [facility]...) When possible be specific @ -No Did you speak to anyone other than the patient for history (EMS, parent, family, police, friend...)? What history was obtained from this source @ -No Did you review nursing and triage notes (agree or disagree)? Why? @ -I reviewed and agree with nursing and triage notes Were old charts reviewed (outside hosp., previous admission, EMS record, old EKG, old radiological studies, urgent care reports/EKG's, [facility] records)? Report findings @ -No old charts were reviewed Differential Diagnosis (chest pain, altered mental status, abdominal pain women, abdominal pain men, vaginal bleeding, weakness, fever, dyspnea, syncope, headache, dizziness, GI bleed, back pain, seizure, CVA, palpatations, mental health, musculoskeletal)? @ -[Differential Abdominal Pain Women: Appendicitis, Cholecystitis, diverticulosis, ischemic bowel, pancreatitis, hepatitis, UTI, gastroenteritis, AAA, incarcerated hernia, bowel obstruction, constipation, inflammatory bowel, hepatitis, peptic ulcer disease, splenic infarction, perforated viscus, vulvitis, ovarian torsion, PID, kidney stone, placenta abruption, this is not meant to be an all-inclusive list EKG interpreted by me (3pts min.). @ -None X-rays interpreted by me (1pt min.). @ -X-ray shows no acute cardiopulmonary process CT interpreted by me (1pt min.). @ -None done U/S interpreted by me (1pt. min.). @ -None done What testing was considered but not performed or refused? (CT, X-rays, U/S, labs)? Why? @ -None What meds were considered but not given or refused? Why? @ -None Did you discuss the management of the patient with other professionals (professionals i.e. Dr., PA, METALLURGICAL INSPECTOR, lab, RT, psych nurse, social worker clinical, gmat instructor, teacher, rating officer, skilled nursing case manager)? Give summary @ -No Was smoking cessation discussed for >3mins.? @ -No Was critical care preformed (if so, how long)? @ -No Were there social determinants of health that impacted care today? How? (Homelessness, low income, unemployed, alcoholism, drug addiction, transportation, low edu. Level, literacy, decrease access to med. care, long-term, rehab)? @ -No Was there de-escalation of care discussed even if they declined (Discuss DNR or withdrawal of care, Hospice)? DNR status @ -No What co-morbidities impacted this encounter? (DM, HTN, Smoking, COPD, CAD, Cancer, CVA, ARF, Chemo, Hep., AIDS, mental health diagnosis, sleep apnea, morbid obesity)? @Renal disease, renal transplant Was patient admitted / discharged? Hospital course, mention meds given and route, prescriptions, significant lab abnormalities, going to OR and other pertinent info. @ -Admitted patient was found to have urinary tract infection, currently febrile. No severe leukocytosis concerning for early pyelonephritis given patient has kidney transplant will be admitted for IV antibiotics, blood cultures IV fluid agitation and antiemetics Undiagnosed new problem with uncertain prognosis? @ -No Drug Therapy requiring intensive monitoring for toxicity (Heparin, Nitro, Insulin, Cardizem)? @ -No Were any procedures done? @ -No Diagnosis/symptom? @ -UTI Acute, or Chronic, or Acute on Chronic? @ -Acute Uncomplicated (without systemic symptoms) or Complicated (systemic symptoms)? @ -Complicated Side effects of treatment? @ -No Exacerbation, Progression, or Severe Exacerbation? @ -No Poses a threat to life or bodily function? How? (Chest pain, [place], [place], pneumonia, PE, COPD, DKA, ARF, appy, cholecystitis, CVA, Diverticulitis, Homicidal, Suicidal, threat to staff... and all critical care pts) @ -yes Sepsis, endorgan failure - Lab Data Result diagrams: 06/21/24 11:02 06/21/24 11: Lab Results 06/21/24 06/21/24 06/21/24 Range/Units 11:02 11: 11:02 WBC (3.8-10.6) k/uL RBC (3.80-5.40) m/uL Hgb (11.4-16.0) gm/dL Hct (34.0-46.0) % MCV (80.0-100.0) fL MCH (25.0-35.0) pg MCHC (31.0-37.0) g/dL RDW (11.5-15.5) % Plt Count (150-450) k/uL MPV Neutrophils % % Lymphocytes % % Monocytes % % Eosinophils % % Basophils % % Neutrophils # (1.3-7.7) k/uL Lymphocytes # (1.0-4.8) k/uL Monocytes # (0-1.0) k/uL Eosinophils # (0-0.7) k/uL Basophils # (0-0.2) k/uL Sodium (137-145) mmol/L Potassium (3.5-5.1) mmol/L Chloride (98-107) mmol/L Carbon Dioxide (22-30) mmol/L Anion Gap mmol/L BUN (7-17) mg/dL Creatinine (0.52-1.04) mg/dL Est GFR (CKD-EPI)AfAm (>60 ml/min/1.73 sqM) Est GFR (CKD-EPI)NonAf (>60 ml/min/1.73 sqM) Glucose (74-99) mg/dL Plasma Lactic Acid Silvino 1.3 (0.7-2.0) mmol/L Calcium (8.4-10.2) mg/dL Total Bilirubin (0.2-1.3) mg/dL AST (14-36) U/L ALT (4-34) U/L Alkaline Phosphatase (38-126) U/L Total Protein (6.3-8.2) g/dL Albumin (3.5-5.0) g/dL Urine Color Yellow Urine Appearance Turbid H (Clear) Urine pH 6.0 (5.0-8.0) Ur Specific [place] 1.019 (1.001-1.035) Urine Protein 1+ H (Negative) Urine Glucose (UA) Negative (Negative) Urine Ketones Negative (Negative) Urine Blood Moderate H (Negative) Urine Nitrite Positive H (Negative) Urine Bilirubin Negative (Negative) Urine Urobilinogen <2.0 (<2.0) mg/dL Ur Leukocyte Esterase Large H (Negative) Urine RBC 11 H (0-5) /hpf Urine WBC >182 H (0-5) /hpf Urine WBC Clumps Many H (None) /hpf Ur Squamous Epith Cells 3 (0-4) /hpf Urine Bacteria Few H (None) /hpf Influenza Type A (PCR) Not Detected (Not Detectd) Influenza Type B (PCR) Not Detected (Not Detectd) RSV (PCR) Not Detected (Not Detectd) SARS-CoV-2 (PCR) Not Detected (Not Detectd) 06/21/24 06/21/24 Range/Units 11:02 11:02 WBC 10.4 (3.8-10.6) k/uL RBC 4.23 (3.80-5.40) m/uL Hgb 12.3 (11.4-16.0) gm/dL Hct 37.2 (34.0-46.0) % MCV 87.9 (80.0-100.0) fL MCH 29.2 (25.0-35.0) pg MCHC 33.2 (31.0-37.0) g/dL RDW 13.9 (11.5-15.5) % Plt Count 166 (150-450) k/uL MPV 9.3 Neutrophils % 79 % Lymphocytes % 12 % Monocytes % 6 % Eosinophils % 1 % Basophils % 1 % Neutrophils # 8.2 H (1.3-7.7) k/uL Lymphocytes # 1.3 (1.0-4.8) k/uL Monocytes # 0.6 (0-1.0) k/uL Eosinophils # 0.1 (0-0.7) k/uL Basophils # 0.1 (0-0.2) k/uL Sodium 139 (137-145) mmol/L Potassium 5.4 H (3.5-5.1) mmol/L Chloride 106 (98-107) mmol/L Carbon Dioxide 24 (22-30) mmol/L Anion Gap 9 mmol/L BUN 44 H (7-17) mg/dL Creatinine 1.80 H (0.52-1.04) mg/dL Est GFR (CKD-EPI)AfAm 31 (>60 ml/min/1.73 sqM) Est GFR (CKD-EPI)NonAf 27 (>60 ml/min/1.73 sqM) Glucose 159 H (74-99) mg/dL Plasma Lactic Acid Silvino (0.7-2.0) mmol/L Calcium 8.4 (8.4-10.2) mg/dL Total Bilirubin 1.2 (0.2-1.3) mg/dL AST 35 (14-36) U/L ALT 16 (4-34) U/L Alkaline Phosphatase 65 (38-126) U/L Total Protein 6.9 (6.3-8.2) g/dL Albumin 3.2 L (3.5-5.0) g/dL Urine Color Urine Appearance (Clear) Urine pH (5.0-8.0) Ur Specific [place] (1.001-1.035) Urine Protein (Negative) Urine Glucose (UA) (Negative) Urine Ketones (Negative) Urine Blood (Negative) Urine Nitrite (Negative) Urine Bilirubin (Negative) Urine Urobilinogen (<2.0) mg/dL Ur Leukocyte Esterase (Negative) Urine RBC (0-5) /hpf Urine WBC (0-5) /hpf Urine WBC Clumps (None) /hpf Ur Squamous Epith Cells (0-4) /hpf Urine Bacteria (None) /hpf Influenza Type A (PCR) (Not Detectd) Influenza Type B (PCR) (Not Detectd) RSV (PCR) (Not Detectd) SARS-CoV-2 (PCR) (Not Detectd) Disposition Clinical Impression: UTI (urinary tract infection) Disposition: ADMITTED IP TO THIS HOSP Condition: Fair Referrals: Joel Wong DO [Primary Care Provider] - 1-2 days Time of Disposition: 13:16
[2024-06-21] MEDS: ONDANSETRON 4 MG/2 ML VIAL IVP STA (11:20)
[2024-06-21] MEDS: ACETAMINOPHEN TAB 325 MG TAB PO STA (11:22)
[2024-06-21] MEDS: SODIUM CHLORIDE 0.9% 500 ML 500 ML IV ONE (11:22)
[2024-06-21 11:25] LABS: Basophils # (A) 0.1 k/uL (0-0.2); Basophils % (A) 1 %; Eosinophils # (A) 0.1 k/uL (0-0.7); Eosinophils % (A) 1 %; HCT 37.2 % (34.0-46.0); HGB 12.3 gm/dL (11.4-16.0); Lymphocytes # (A) 1.3 k/uL (1.0-4.8); Lymphocytes % (A) 12 %; MCH 29.2 pg (25.0-35.0); MCHC 33.2 g/dL (31.0-37.0); MCV 87.9 fL (80.0-100.0); Mean Platelet Volume 9.3; Monocytes # (A) 0.6 k/uL (0-1.0); Monocytes % (A) 6 %; Neutrophils # (A) 8.2 k/uL (1.3-7.7); Neutrophils % (A) 79 %; Platelet Count 166 k/uL (150-450); RBC 4.23 m/uL (3.80-5.40); RDW 13.9 % (11.5-15.5); WBC 10.4 k/uL (3.8-10.6)
[2024-06-21 11:35] LABS: ALT 16 U/L (4-34); African American GFR (CKD) 31 (>60 ml/min/1.73 sqM); Anion Gap 9 mmol/L; Blood Urea Nitrogen 44 mg/dL (7-17); Calcium 8.4 mg/dL (8.4-10.2); Carbon Dioxide 24 mmol/L (22-30); Chloride 106 mmol/L (98-107); Glucose 159 mg/dL (74-99); Non-African American GFR(CKD) 27 (>60 ml/min/1.73 sqM); Sodium 139 mmol/L (137-145); Total Bilirubin 1.2 mg/dL (0.2-1.3)
[2024-06-21 11:38] LABS: AST 35 U/L (14-36); Albumin 3.2 g/dL (3.5-5.0); Alkaline Phosphatase 65 U/L (38-126); Potassium 5.4 mmol/L (3.5-5.1); Total Protein 6.9 g/dL (6.3-8.2)
[2024-06-21 11:58] LABS: Appearance,Urine Turbid (Clear); Bacteria,Urine Few /hpf; Bilirubin,Urine Negative (Negative); Blood,Urine Moderate (Negative); Color,Urine Yellow; Glucose,Urine (UA) Negative (Negative); Ketones,Urine Negative (Negative); Leukocyte Esterase,Urine Large (Negative); Nitrite,Urine Positive (Negative); Protein,Urine 1+ (Negative); RBC,Urine 11 /hpf (0-5); Specific Gravity,Urine 1.019 (1.001-1.035); Squamous Epithelial Cell,Urine 3 /hpf (0-4); Urobilinogen,Urine <2.0 mg/dL (<2.0); WBC,Urine >182 /hpf (0-5)
--- NOTE | 2024-06-21 12:00 | XR ---
EXAMINATION TYPE: XR chest 2V DATE OF EXAM: 06/21/2024 COMPARISON: 06/09/2022 HISTORY: 73-year-old female with fever and weakness TECHNIQUE: AP and lateral views FINDINGS: Median sternotomy wires and post-CABG clips. Heart upper limits of normal in size. Mild interstitial prominence. Some strandy atelectasis in the lower lungs. Vascular calcifications in the bilateral api dede. IMPRESSION: Post-CABG changes. No definite acute process.
[2024-06-21] MEDS ORDERED: ONDANSETRON 4 MG/2 ML VIAL IVP PRN (13:16)
[2024-06-21] MEDS ORDERED: NALOXONE 0.4 MG/ML 1 ML VIAL IV PRN (13:16)
[2024-06-21] MEDS: SODIUM CHLORIDE 0.9% 1,000 ML IV SCH (13:42)
[2024-06-21] MEDS ORDERED: DEXTROSE 50% SYRINGE 50 ML IVP PRN ×2 (13:53)
--- NOTE | 2024-06-21 17:41 | P.HPIM ---
History of Present Illness This is a pleasant 73 years old female with past medical history of hypertension, hyperlipidemia, coronary artery disease, status post right kidney transplant in 2009 and he follow-up with Dr. Rosa. Patient presents because of generalized weakness and difficulty to getting up from sitting position for the last few days She denies specific symptoms, no chest pain or dyspnea or coughing. No GI/ symptoms. No headache dizziness weakness or numbness of lateralization. She denies smoking alcohol or illicit drugs. She is hemodynamically stable. She had low-grade fever on admission of 99.7 Labs reviewed showing unremarkable CBC, potassium slightly high 5.4, creatinine slightly up at 1.8 with baseline 1.2. Liver enzymes unremarkable Influenza A and type B, RSV, SARS (coronavirus) are undetected Urine analysis is suspicious of infection Chest x-ray is negative for acute process. Review of Systems Review of systems CONSTITUTIONAL: No fever, no chills HEENT: No recent visual problems or hearing problems. Denied any sore throat. CARDIOVASCULAR: No orthopnea, PND, no palpitations, no syncope. PULMONARY: No shortness of breath, no cough, no hemoptysis. GASTROINTESTINAL: No diarrhea, no nausea, no vomiting, no abdominal pain. Normoactive bowel sounds. NEUROLOGICAL: No headaches, no weakness, no numbness. HEMATOLOGICAL: Denies any bleeding or petechiae. GENITOURINARY: Denies any burning micturition, frequency, or urgency. MUSCULOSKELETAL/RHEUMATOLOGICAL: Denies any joint pain, swelling, or any muscle pain. ENDOCRINE: Denies any polyuria or polydipsia. Past Medical History Past Medical History: Coronary Artery Disease (CAD), Diabetes Mellitus, Eye Disorder, Hyperlipidemia, Hypertension, Myocardial Infarction ([place]), Renal Disease, Skin Disorder Additional Past Medical History / Comment(s): R eye glaucoma, retinal bleed and little vision, renal failure Stage 3 - R renal transplant in 2009, UTIs with sepsis, Last Myocardial Infarction Date:: 2009 History of Any Multi-Drug Resistant Organisms: None Reported Past Surgical History: Appendectomy, Cholecystectomy, Coronary Bypass/CABG, Heart Catheterization, Hernia Repair, Hysterectomy Additional Past Surgical History / Comment(s): 2009 right kidney transplant, 4 vessel CABG in 2010, umbilical hernia repair, colonoscopies, silvia cataract removed, R eye laser surgeries. Past Anesthesia/Blood Transfusion Reactions: No Reported Reaction Additional Past Anesthesia/Blood Transfusion Reaction / Comment(s): unknown Past Psychological History: No Psychological Hx Reported Smoking Status: Former smoker Past Alcohol Use History: None Reported Past Drug Use History: None Reported - Past Family History Brother(s) Family Medical History: Cancer Additional Family Medical History / Comment(s): one brother had kidney cancer. one brother had prostate cancer Mother Family Medical History: Coronary Artery Disease (CAD) Additional Family Medical History / Comment(s): mom had heart disease Father Family Medical History: Cancer Additional Family Medical History / Comment(s): lung and pancreatic cancer Medications and Allergies Home Medications Medication Instructions Recorded Confirmed Type Mycophenolate Sodium Dr [Myfortic] 360 mg PO BID 03/14/14 06/21/24 History Tacrolimus [Prograf] 2 mg PO DAILY 09/13/17 06/21/24 History Isosorbide Mononitrate ER [Imdur] 30 mg PO DAILY 11/26/17 06/21/24 History Insulin Glargine,Hum.rec.anlog 40 - 50 units SQ HS 04/18/20 06/21/24 History [Toujeo Solostar] Magnesium Oxide 400 mg PO BID 04/18/20 06/21/24 History Tacrolimus [Prograf] 1 mg PO HS 04/18/20 06/21/24 History Aspirin 81 mg PO DAILY #30 chew 04/22/20 06/21/24 Rx Atorvastatin [Lipitor] 40 mg PO HS #30 tab 04/22/20 06/21/24 Rx Nitroglycerin Sl Tabs [Nitrostat] 0.4 mg SUBLINGUAL Q5M PRN #20 tab 04/22/20 06/21/24 Rx Cholecalciferol [Vitamin D3 (25 25 mcg PO DAILY 06/21/24 06/21/24 History Mcg = 1000 Iu)] Cranberry Fruit Extract [Cranberry] 500 mg PO DAILY 06/21/24 06/21/24 History INSULIN ASPART (NovoLOG) [NovoLOG See Protocol SQ ACHS 06/21/24 06/21/24 History (formulary)] Allergies Allergy/AdvReac Type Severity Reaction Status Date / Time metoclopramide HCl Allergy Unknown Verified 06/21/24 13:38 [From Reglan] adhesive tape AdvReac tears skin Verified 06/21/24 13:38 grapefruit [Grapefruit] AdvReac reaction Verified 06/21/24 13:38 with simvastatin ibuprofen AdvReac kidney Verified 06/21/24 13:38 failure/transplant ropinirole [From Requip] AdvReac LEG CRAMPS Verified 06/21/24 13:38 nupur Allergy Rash/Hives Uncoded 06/21/24 13:38 Physical Exam Vitals: Vital Signs Temp Pulse Pulse Resp BP BP Pulse Ox 06/21/24 17:22 98.2 F 85 17 128/52 96 06/21/24 16:57 86 18 153/86 06/21/24 15:43 77 18 156/86 97 06/21/24 14:19 99.0 F 74 20 128/63 95 06/21/24 10:43 99.7 F H 90 19 165/72 95 Intake and Output 06/21/24 06/21/24 06/21/24 06:59 14:59 22:59 Intake Total 120 Balance 120 Intake: Oral 120 Other: Weight 103.419 kg -GENERAL: The patient is alert and oriented x3, not in any acute distress. Well developed, well nourished. Generally weak, obese HEENT: Pupils are round and equally reacting to light. EOMI. No scleral icterus. No conjunctival pallor. Normocephalic, atraumatic. No pharyngeal erythema. No thyromegaly. CARDIOVASCULAR: S1 and S2 present. No murmurs, rubs, or gallops. PULMONARY: Chest is clear to auscultation, no wheezing , no crackles. ABDOMEN: Soft, nontender, nondistended, normoactive bowel sounds. No palpable organomegaly. MUSCULOSKELETAL: No joint swelling or deformity. EXTREMITIES: No cyanosis, clubbing, or pedal edema. NEUROLOGICAL: Gross neurological examination did not reveal any focal deficits. SKIN: No rashes. no petechiae. Results CBC & Chem 7: 06/21/24 11:02 06/21/24 11:02 Labs: Abnormal Lab Results - Last 24 Hours (Table) 06/21/24 06/21/24 06/21/24 Range/Units 11:02 11:02 11:02 Neutrophils # 8.2 H (1.3-7.7) k/uL Potassium 5.4 H (3.5-5.1) mmol/L BUN 44 H (7-17) mg/dL Creatinine 1.80 H (0.52-1.04) mg/dL Glucose 159 H (74-99) mg/dL Albumin 3.2 L (3.5-5.0) g/dL Urine Appearance Turbid H (Clear) Urine Protein 1+ H (Negative) Urine Blood Moderate H (Negative) Urine Nitrite Positive H (Negative) Ur Leukocyte Esterase Large H (Negative) Urine RBC 11 H (0-5) /hpf Urine WBC >182 H (0-5) /hpf Urine WBC Clumps Many H (None) /hpf Urine Bacteria Few H (None) /hpf Assessment and Plan Assessment: Acute urinary tract infection Generalized weakness and malaise and fatigue secondary to above Dehydration secondary to above Acute kidney injury on CKD stage III with mild hyperkalemia, present on admission History of kidney transplant on immunosuppressive therapy Diabetes mellitus Hypertension Hyperlipidemia Obesity with BMI of 36.8 Plan: Start ceftriaxone Follow-up urine culture Continue with gentle hydration Nephrology consult Infectious disease team consult Labs and medication were reviewed.. Continue same treatment. Continue with symptomatic treatment. Resume home medication. Monitor labs and vitals. DVT and GI prophylaxis. Further recommendations as per clinical course of the patient DVT prophylaxis: Subcutaneous heparin GI Prophylaxis: Pepcid PT/OT: Pending Prognosis is guarded
[2024-06-21 18:11] LABS: Glucose,Whole Blood 197 mg/dL (70-110)
[2024-06-21] MEDS: INSULIN ASPART (NovoLOG) 100 UNIT/ML VIAL SQ SCH (18:22)
[2024-06-21] MEDS: ATORVASTATIN 40 MG TAB PO SCH (20:08)
[2024-06-21] MEDS: MAGNESIUM OXIDE 400 MG TAB PO SCH (20:08)
[2024-06-21] MEDS: FAMOTIDINE 20 MG/2 ML VIAL IV SCH (20:09)
[2024-06-21] MEDS: HEPARIN SODIUM,PORCINE 5,000 UNIT/ML 1 ML VIAL SQ SCH (20:09)
[2024-06-21 20:37] LABS: Glucose,Whole Blood 208 mg/dL (70-110)
[2024-06-21] MEDS: MYCOPHENOLATE SODIUM DR 180 MG TABLET.DR PO SCH (20:44)
[2024-06-21] MEDS: TACROLIMUS 1 MG CAP PO SCH (20:44)
[2024-06-21] MEDS: INSULIN DETEMIR (LEVEMIR) 100 UNIT/ML SYR SQ SCH (20:44)
[2024-06-22] MEDS: ACETAMINOPHEN TAB 325 MG TAB PO PRN (00:54)
[2024-06-22 04:54] LABS: Glucose,Whole Blood 119 mg/dL (70-110)
[2024-06-22 05:52] LABS: Glucose,Whole Blood 122 mg/dL (70-110)
[2024-06-22 08:43] LABS: BUN/Creat Ratio 22.38 Ratio (12.00-20.00); Basophils # (A) 0.06 X 10*3/uL (0.00-0.10); Basophils % (A) 0.7 %; Blood Urea Nitrogen 35.8 mg/dL (9.0-27.0); Calcium 8.3 mg/dL (8.7-10.3); Chloride 105 mmol/L (96-109); Eosinophils # (A) 0.07 X 10*3/uL (0.04-0.35); Eosinophils % (A) 0.9 %; Glucose 127 mg/dL (70-110); HCT 33.9 % (37.2-46.3); Lymphocytes # (A) 1.11 X 10*3/uL (0.90-5.00); Lymphocytes % (A) 13.6 %; MCH 28.6 pg (27.0-32.0); MCHC 32.4 g/dL (32.0-37.0); MCV 88.3 FL (80.0-97.0); Mean Platelet Volume 12.2 FL (9.5-12.2); Monocytes # (A) 0.94 X 10*3/uL (0.20-1.00); Monocytes % (A) 11.5 %; NRBC Per 100 WBC 0 X 10*3/uL (0.00-0.01); Neutrophils # (A) 5.98 X 10*3/uL (1.80-7.70); Neutrophils % (A) 72.9 %; Platelet Count 172 X 10*3/uL (140-440); Potassium 4.1 mmol/L (3.5-5.5); RBC 3.84 X 10*6/uL (4.10-5.20); RDW 13.7 % (11.5-14.5); Sodium 138 mmol/L (135-145); WBC 8.19 X 10*3/uL (4.50-10.00)
[2024-06-22] MEDS: TACROLIMUS 1 MG CAP PO SCH (09:49)
[2024-06-22] MEDS: CHOLECALCIFEROL 25 MCG (1000 IU) TABLET PO SCH (09:49)
[2024-06-22] MEDS: ISOSORBIDE MONONITRATE ER 30 MG TAB.ER.24H PO SCH (09:49)
[2024-06-22] MEDS: ASPIRIN 81 MG PO SCH (09:49)
--- NOTE | 2024-06-22 11:45 | P.NPCON ---
History of Present Illness - Reason for Consult acute renal failure, chronic renal failure - History of Present Illness Reason for consultation: Acute kidney injury on chronic kidney disease and renal transplant management History of present illness: Patient is a 73-year-old female seen in renal consultation for acute kidney injury on chronic kidney disease and renal transplant management. Patient rece ived a living related kidney allograft in 2008. Patient baseline creatinine is near 1.3. Patient came to the hospital due to generalized weakness as well as vomiting and diarrhea which began Wednesday. Patient was also noted to be confused by family and was brought to the hospital. She is currently on IV antibiotics for UTI. She denies any gross hematuria or dysuria but does admit to urinary frequency. She is receiving IV fluids. Creatinine was 1.8 on admission and is 1.6 today. She denies use of nonsteroidals. She does have history of diabetes. Also has history of coronary artery disease and is status post CABG. Patient states she was unable to keep her antirejection medications down the last few days due to vomiting. She takes Myfortic 360 mg twice daily and also Prograf 2 mg in the morning and 1 mg in the evening. Vital signs are stable. General: No acute distress. HEENT: Head exam is unremarkable. LUNGS: No audible rhonchi or wheezes. HEART: Rate and Rhythm are regular. ABDOMEN: Nontender. EXTREMITITES: No edema. Past Medical History Past Medical History: Coronary Artery Disease (CAD), Diabetes Mellitus, Eye Disorder, Hyperlipidemia, Hypertension, Myocardial Infarction ([place]), Renal Disease, Skin Disorder Additional Past Medical History / Comment(s): R eye glaucoma, retinal bleed and little vision, renal failure Stage 3 - R renal transplant in 2008, UTIs with sepsis, Last Myocardial Infarction Date:: 2009 History of Any Multi-Drug Resistant Organisms: None Reported Past Surgical History: Appendectomy, Cholecystectomy, Coronary Bypass/CABG, Heart Catheterization, Hernia Repair, Hysterectomy Additional Past Surgical History / Comment(s): 2009 right kidney transplant, 4 vessel CABG in 2010, umbilical hernia repair, colonoscopies, silvia cataract removed, R eye laser surgeries. Past Anesthesia/Blood Transfusion Reactions: No Reported Reaction Additional Past Anesthesia/Blood Transfusion Reaction / Comment(s): unknown Past Psychological History: No Psychological Hx Reported Smoking Status: Former smoker Past Alcohol Use History: None Reported Past Drug Use History: None Reported - Past Family History Brother(s) Family Medical History: Cancer Additional Family Medical History / Comment(s): one brother had kidney cancer. one brother had prostate cancer Mother Family Medical History: Coronary Artery Disease (CAD) Additional Family Medical History / Comment(s): mom had heart disease Father Family Medical History: Cancer Additional Family Medical History / Comment(s): lung and pancreatic cancer Medications and Allergies Home Medications Medication Instructions Recorded Confirmed Type Mycophenolate Sodium Dr [Myfortic] 360 mg PO BID 03/14/14 06/21/24 History Tacrolimus [Prograf] 2 mg PO DAILY 09/13/17 06/21/24 History Isosorbide Mononitrate ER [Imdur] 30 mg PO DAILY 11/26/17 06/21/24 History Insulin Glargine,Hum.rec.anlog 40 - 50 units SQ HS 04/18/20 06/21/24 History [Touchristino Solostar] Magnesium Oxide 400 mg PO BID 04/18/20 06/21/24 History Tacrolimus [Prograf] 1 mg PO HS 04/18/20 06/21/24 History Aspirin 81 mg PO DAILY #30 chew 04/22/20 06/21/24 Rx Atorvastatin [Lipitor] 40 mg PO HS #30 tab 04/22/20 06/21/24 Rx Nitroglycerin Sl Tabs [Nitrostat] 0.4 mg SUBLINGUAL Q5M PRN #20 tab 04/22/20 06/21/24 Rx Cholecalciferol [Vitamin D3 (25 25 mcg PO DAILY 06/21/24 06/21/24 History Mcg = 1000 Iu)] Cranberry Fruit Extract [Cranberry] 500 mg PO DAILY 06/21/24 06/21/24 History INSULIN ASPART (NovoLOG) [NovoLOG See Protocol SQ ACHS 06/21/24 06/21/24 History (formulary)] Allergies Allergy/AdvReac Type Severity Reaction Status Date / Time metoclopramide HCl Allergy Unknown Verified 06/21/24 13:38 [From Reglan] adhesive tape AdvReac tears skin Verified 06/21/24 13:38 grapefruit [Grapefruit] AdvReac reaction Verified 06/21/24 13:38 with simvastatin ibuprofen AdvReac kidney Verified 06/21/24 13:38 failure/transplant ropinirole [From Requip] AdvReac LEG CRAMPS Verified 06/21/24 13:38 nupur Allergy Rash/Hives Uncoded 06/21/24 13:38 Physical Exam Vitals: Vital Signs Temp Pulse Pulse Resp BP BP Pulse Ox 06/22/24 00:59 100.7 F H 88 14 165/68 91 L 06/21/24 20:17 99.1 F 06/21/24 20:09 17 06/21/24 19:16 98.3 F 90 17 163/69 96 06/21/24 17:22 98.2 F 85 17 128/52 96 06/21/24 16:57 86 18 153/86 06/21/24 15:43 77 18 156/86 97 06/21/24 14:19 99.0 F 74 20 128/63 95 Intake and Output 06/21/24 06/22/24 06/22/24 22:59 06:59 14:59 Intake Total 120 Output Total 2 Balance 120 -2 Intake: Oral 120 Output: Urine 2 Other: # Voids 1 Weight 103.419 kg Results - Lab Results Most recent lab results Calcium 8.3 mg/dL (8.7-10.3) L 06/22/24 05:30 06/22/24 05:30 06/22/24 05:30 Assessment and Plan Plan: Assessment: 1. Acute allograft dysfunction secondary to vasomotor nephropathy secondary to hypovolemia and severe sepsis. Creatinine 1.8 on admission and is 1.6 today. 2. Chronic kidney disease stage IIIb with baseline creatinine near 1.3. 3. Status post living related renal allograft in 2008. 4. UTI on antibiotics. 5. Diabetes mellitus. 6. Coronary disease status post CABG. Plan: Maintain IV fluids. Follow-up cultures. Check a.m. Prograf level. Continue to monitor renal function and urine output. Check renal ultrasound. Thank you for the consultation. I will continue to follow the patient with you during her hospital stay.
[2024-06-22 11:46] LABS: Glucose,Whole Blood 99 mg/dL (70-110)
--- NOTE | 2024-06-22 12:46 | P.PN ---
Subjective This is a pleasant 73 years old female with past medical history of hypertension, hyperlipidemia, coronary artery disease, status post right kidney transplant in 2008 and he follow-up with Dr. Rosa. Patient presents because of generalized weakness and difficulty to getting up from sitting position for the last few days She denies specific symptoms, no chest pain or dyspnea or coughing. No GI/ symptoms. No headache dizziness weakness or numbness of lateralization. She denies smoking alcohol or illicit drugs. She is hemodynamically stable. She had low-grade fever on admission of 99.7 Labs reviewed showing unremarkable CBC, potassium slightly high 5.4, creatinine slightly up at 1.8 with baseline 1.2. Liver enzymes unremarkable Influenza A and type B, RSV, SARS (coronavirus) are undetected Urine analysis is suspicious of infection Chest x-ray is negative for acute process. 06/22 Patient feels comfortable No chest pain no dyspnea No dysuria today no urgency She feels her weakness is improving She still has fever today 100.7 WBC slightly down from 10 down to 8K Creatinine at baseline 1.6 She remains on ceftriaxone, urine and blood cultures pending Tacrolimus level is pending Review of systems CONSTITUTIONAL: No fever, no malaise, no fatigue. HEENT: No recent visual problems or hearing problems. Denied any sore throat. CARDIOVASCULAR: No orthopnea, PND, no palpitations, no syncope. PULMONARY: No shortness of breath, no cough, no hemoptysis. GASTROINTESTINAL: No diarrhea, no nausea, no vomiting, no abdominal pain. Nor moactive bowel sounds. NEUROLOGICAL: No headaches, no weakness, no numbness. Active Medications Generic Name Dose Route Start Last Admin Trade Name Lidia PRN Reason Stop Dose Admin Acetaminophen 650 mg 06/21/24 13:16 06/22/24 00:54 Acetaminophen Tab 325 Mg Tab PO 650 mg Q6HR PRN Administration Mild Pain or Fever > 100.5 Aspirin 81 mg 06/22/24 09:00 06/22/24 09:49 Aspirin 81 Mg PO 81 mg DAILY ART Administration Atorvastatin Calcium 40 mg 06/21/24 21:00 06/21/24 20:08 Atorvastatin 40 Mg Tab PO 40 mg HS ART Administration Cholecalciferol 25 mcg 06/22/24 09:00 06/22/24 09:49 Cholecalciferol 25 Mcg (1000 Iu) Tablet PO 25 mcg DAILY ART Administration Dextrose/Water 25 ml 06/21/24 13:53 Dextrose 50% Syringe 50 Ml IVP PER PROTOCOL PRN Hypoglycemia Protocol Dextrose/Water 50 ml 06/21/24 13:53 Dextrose 50% Syringe 50 Ml IVP PER PROTOCOL PRN Hypoglycemia Protocol Famotidine 10 mg 06/21/24 21:00 06/22/24 12:15 Famotidine 20 Mg/2 Ml Vial IV 10 mg Q12HR ART Administration Heparin Sodium (Porcine) 5,000 unit 06/21/24 21:00 06/22/24 09:48 Heparin Sodium,Porcine 5,000 Unit/Ml 1 Ml Vial SQ 5,000 unit Q12HR ART Administration Sodium Chloride 1,000 mls @ 75 mls/hr 06/21/24 13:30 06/22/24 03:34 Saline 0.9% IV Not Given .[id number] ART Ceftriaxone Sodium 1 gm/ 50 mls @ 100 mls/hr 06/22/24 09:00 06/22/24 12:14 Sodium Chloride IVPB 100 mls/hr DAILY ART Administration Protocol Insulin Aspart 0 unit 06/21/24 17:30 06/22/24 12:13 Insulin Aspart (Novolog) 100 Unit/Ml Vial SQ Not Given ACHS ART Protocol Insulin Detemir 30 unit 06/21/24 21:00 06/21/24 20:44 Insulin Detemir (Levemir) 100 Unit/Ml Syr SQ 30 unit HS ART Administration Isosorbide Mononitrate 30 mg 06/22/24 09:00 06/22/24 09:49 Isosorbide Mononitrate Er 30 Mg Tab.Er.24h PO 30 mg DAILY ART Administration Magnesium Oxide 400 mg 06/21/24 21:00 06/22/24 09:49 Magnesium Oxide 400 Mg Tab PO 400 mg BID ART Administration Mycophenolate Sodium 360 mg 06/21/24 21:00 06/22/24 09:[address] 180 Mg Tablet.Dr PO 360 mg BID ART Administration Naloxone HCl 0.2 mg 06/21/24 13:16 Naloxone 0.4 Mg/Ml 1 Ml Vial IV Q2M PRN Opioid Reversal Ondansetron HCl 4 mg 06/21/24 13:16 Ondansetron 4 Mg/2 Ml Vial IVP Q8HR PRN Nausea And Vomiting Tacrolimus 1 mg 06/21/24 21:00 06/21/24 20:44 Tacrolimus 1 Mg Cap PO 1 mg HS ART Administration Tacrolimus 2 mg 06/22/24 09:00 06/22/24 09:49 Tacrolimus 1 Mg Cap PO 2 mg DAILY ART Administration Objective - Vital Signs Vital signs: Vital Signs Temp 97.8 F 06/22/24 07:08 Pulse 67 06/22/24 07:08 Resp 16 06/22/24 07:08 BP 122/72 06/22/24 07:08 Pulse Ox 96 06/22/24 07:08 FiO2 Intake & Output 06/21/24 06/22/24 06/22/24 18:59 06:59 18:59 Intake Total 120 Output Total 2 Balance 120 -2 Weight 103.419 kg Intake: Oral 120 Output: Urine 2 Other: # Voids 1 - Exam GENERAL: The patient is alert and oriented x3, not in any acute distress. Well developed, well nourished. HEENT: Pupils are round and equally reacting to light. EOMI. No scleral icterus. No conjunctival pallor. Normocephalic, atraumatic. No pharyngeal erythema. No thyromegaly. CARDIOVASCULAR: S1 and S2 present. No murmurs, rubs, or gallops. PULMONARY: Chest is clear to auscultation, no wheezing , no crackles. ABDOMEN: Soft, nontender, nondistended, normoactive bowel sounds. No palpable organomegaly. MUSCULOSKELETAL: No joint swelling or deformity. EXTREMITIES: No cyanosis, clubbing, or pedal edema. NEUROLOGICAL: Gross neurological examination did not reveal any focal deficits. SKIN: No rashes. no petechiae. - Labs CBC & Chem 7: 06/22/24 05:30 06/22/24 05:30 Labs: Abnormal Lab Results - Last 24 Hours (Table) 06/21/24 06/21/24 06/21/24 Range/Units 11:02 18:10 20:36 RBC (4.10-5.20) X 10*6/uL Hgb (12.0-15.0) g/dL Hct (37.2-46.3) % BUN (9.0-27.0) mg/dL Creatinine (0.6-1.5) mg/dL Est GFR (CKD-EPI) (>=60) BUN/Creatinine Ratio (12.00-20.00) Ratio Glucose (70-110) mg/dL POC Glucose (mg/dL) 197 H 208 H (70-110) mg/dL Hemoglobin A1c (<=6.0) % Calcium (8.7-10.3) mg/dL Urine Appearance Turbid H (Clear) Urine Protein 1+ H (Negative) Urine Blood Moderate H (Negative) Urine Nitrite Positive H (Negative) Ur Leukocyte Esterase Large H (Negative) Urine RBC 11 H (0-5) /hpf Urine WBC >182 H (0-5) /hpf Urine WBC Clumps Many H (None) /hpf Urine Bacteria Few H (None) /hpf 06/22/24 06/22/24 06/22/24 Range/Units 04:53 05:30 05:30 RBC 3.84 L (4.10-5.20) X 10*6/uL Hgb 11.0 L (12.0-15.0) g/dL Hct 33.9 L (37.2-46.3) % BUN (9.0-27.0) mg/dL Creatinine (0.6-1.5) mg/dL Est GFR (CKD-EPI) (>=60) BUN/Creatinine Ratio (12.00-20.00) Ratio Glucose (70-110) mg/dL POC Glucose (mg/dL) 119 H (70-110) mg/dL Hemoglobin A1c 8.0 H (<=6.0) % Calcium (8.7-10.3) mg/dL Urine Appearance (Clear) Urine Protein (Negative) Urine Blood (Negative) Urine Nitrite (Negative) Ur Leukocyte Esterase (Negative) Urine RBC (0-5) /hpf Urine WBC (0-5) /hpf Urine WBC Clumps (None) /hpf Urine Bacteria (None) /hpf 06/22/24 06/22/24 Range/Units 05:30 05:51 RBC (4.10-5.20) X 10*6/uL Hgb (12.0-15.0) g/dL Hct (37.2-46.3) % BUN 35.8 H (9.0-27.0) mg/dL Creatinine 1.6 H (0.6-1.5) mg/dL Est GFR (CKD-EPI) 33 L (>=60) BUN/Creatinine Ratio 22.38 H (12.00-20.00) Ratio Glucose 127 H (70-110) mg/dL POC Glucose (mg/dL) 122 H (70-110) mg/dL Hemoglobin A1c (<=6.0) % Calcium 8.3 L (8.7-10.3) mg/dL Urine Appearance (Clear) Urine Protein (Negative) Urine Blood (Negative) Urine Nitrite (Negative) Ur Leukocyte Esterase (Negative) Urine RBC (0-5) /hpf Urine WBC (0-5) /hpf Urine WBC Clumps (None) /hpf Urine Bacteria (None) /hpf Assessment and Plan Assessment: Acute urinary tract infection Generalized weakness and malaise and fatigue secondary to above Dehydration secondary to above Acute kidney injury on CKD stage III with mild hyperkalemia, present on admission History of kidney transplant on immunosuppressive therapy Diabetes mellitus Hypertension Hyperlipidemia Obesity with BMI of 36.8 Plan: Start ceftriaxone Follow-up urine culture. Follow-up blood culture Continue with gentle hydration Nephrology consult Infectious disease team consult Labs and medication were reviewed.. Continue same treatment. Continue with symptomatic treatment. Resume home medication. Monitor labs and vitals. DVT and GI prophylaxis. Further recommendations as per clinical course of the patient DVT prophylaxis: Subcutaneous heparin GI Prophylaxis: Pepcid PT/OT: Pending Prognosis is guarded
--- NOTE | 2024-06-22 15:09 | US ---
EXAMINATION TYPE: US kidneys/renal and bladder DATE OF EXAM: 06/22/2024 COMPARISON: 08/10/2017 CLINICAL INDICATION: Female, 73 years old with history of ESME; Back pain, DM. Patient denies any othe r signs, symptoms, or relevant history EXAM MEASUREMENTS: Right Kidney: 6.0 x 3.3 x 2.6 cm Left Kidney: 7.7 x 3.6 x 4.8 cm Both of these are markedly atrophic and echogenic. No hydronephrosis apparent. Post Void Residual Volume: NA Transplant kidney right pelvis = 14.0 x 5.3 x 4.8 cm. No hydronephrosis. Renal vein is patent. No par vus tardus waveform in the transplant renal artery. Bladder: Non distended Bilateral Jets seen: Not able to assess IMPRESSION: 1. Severely atrophic bilateral [place] kidneys. 2. Right pelvic transplant kidney shows no hydronephrosis. 3. Nondistention of the bladder limits its evaluation.
[2024-06-22 16:56] LABS: Glucose,Whole Blood 119 mg/dL (70-110)
[2024-06-22 20:16] LABS: Glucose,Whole Blood 141 mg/dL (70-110)
--- NOTE | 2024-06-22 22:19 | P.CONS ---
History of Present Illness - Reason for Consult Consult date: 06/22/24 Urinary tract infection Requesting physician: Vivek E Sheet - Chief Complaint Weakness and nausea x few days - History of Present Illness Patient is a 73-year-old female with a past medical history significant for diabetes mellitus hypertension hyperlipidemia [place] coronary disease and renal disease/end-stage renal disease status post kidney transplant, presenting to the hospital yesterday morning for evaluation of weakness and this patient symptom has been getting worse for the last few days patient did have nausea body aches fever and also have urinary frequency but denies having any dysuria suprapubic or flank pain with the symptoms the patient has been evaluated on presentation to the hospital she did have a low-grade fever of 99.7 subsequently spiked a fever 100.7 degrees warm right patient was nontachycardic hypotensive or hypoxic he did have a white count of 10.4 with a left shift BUN and creatinine has been mildly elevated patient did have significantly positive UA with large leukocyte esterase more than 1-2 WBC urine cultures currently pend ing patient did have a chest x-ray no definite acute process patient was started on Rocephin infectious disease was consulted for further management of antibiotic therapy Review of Systems Positive point and negatives has been mentioned in the HPI, complete review of systems was performed and all other systems are negative Past Medical History Past Medical History: Coronary Artery Disease (CAD), Diabetes Mellitus, Eye Disorder, Hyperlipidemia, Hypertension, Myocardial Infarction ([place]), Renal Disease, Skin Disorder Additional Past Medical History / Comment(s): R eye glaucoma, retinal bleed and little vision, renal failure Stage 3 - R renal transplant in 2008, UTIs with sepsis, Last Myocardial Infarction Date:: 2009 History of Any Multi-Drug Resistant Organisms: None Reported Past Surgical History: Appendectomy, Cholecystectomy, Coronary Bypass/CABG, Heart Catheterization, Hernia Repair, Hysterectomy Additional Past Surgical History / Comment(s): 2009 right kidney transplant, 4 vessel CABG in 2009, umbilical hernia repair, colonoscopies, silvia cataract removed, R eye laser surgeries. Past Anesthesia/Blood Transfusion Reactions: No Reported Reaction Additional Past Anesthesia/Blood Transfusion Reaction / Comm: unknown Past Psychological History: No Psychological Hx Reported Smoking Status: Former smoker Past Alcohol Use History: None Reported Past Drug Use History: None Reported - Past Family History Brother(s) Family Medical History: Cancer Additional Family Medical History / Comment(s): one brother had kidney cancer. one brother had prostate cancer Mother Family Medical History: Coronary Artery Disease (CAD) Additional Family Medical History / Comment(s): mom had heart disease Father Family Medical History: Cancer Additional Family Medical History / Comment(s): lung and pancreatic cancer Medications and Allergies Home Medications Medication Instructions Recorded Confirmed Type Mycophenolate Sodium Dr [Myfortic] 360 mg PO BID 03/14/14 06/21/24 History Tacrolimus [Prograf] 2 mg PO DAILY 09/13/17 06/21/24 History Isosorbide Mononitrate ER [Imdur] 30 mg PO DAILY 11/26/17 06/21/24 History Insulin Glargine,Hum.rec.anlog 40 - 50 units SQ HS 04/18/20 06/21/24 History [Toujeo Solostar] Magnesium Oxide 400 mg PO BID 04/18/20 06/21/24 History Tacrolimus [Prograf] 1 mg PO HS 04/18/20 06/21/24 History Aspirin 81 mg PO DAILY #30 chew 04/22/20 06/21/24 Rx Atorvastatin [Lipitor] 40 mg PO HS #30 tab 04/22/20 06/21/24 Rx Nitroglycerin Sl Tabs [Nitrostat] 0.4 mg SUBLINGUAL Q5M PRN #20 tab 04/22/20 06/21/24 Rx Cholecalciferol [Vitamin D3 (25 25 mcg PO DAILY 06/21/24 06/21/24 History Mcg = 1000 Iu)] Cranberry Fruit Extract [Cranberry] 500 mg PO DAILY 06/21/24 06/21/24 History INSULIN ASPART (NovoLOG) [NovoLOG See Protocol SQ ACHS 06/21/24 06/21/24 History (formulary)] Allergies Allergy/AdvReac Type Severity Reaction Status Date / Time metoclopramide HCl Allergy Unknown Verified 06/21/24 13:38 [From Reglan] adhesive tape AdvReac tears skin Verified 06/21/24 13:38 grapefruit [Grapefruit] AdvReac reaction Verified 06/21/24 13:38 with simvastatin ibuprofen AdvReac kidney Verified 06/21/24 13:38 failure/transplant ropinirole [From Requip] AdvReac LEG CRAMPS Verified 06/21/24 13:38 nupur Allergy Rash/Hives Uncoded 06/21/24 13:38 Physical Exam Vitals: Vital Signs Temp Pulse Pulse Resp BP BP Pulse Ox 06/22/24 00:59 100.7 F H 88 14 165/68 91 L 06/21/24 20:17 99.1 F 06/21/24 20:09 17 06/21/24 19:16 98.3 F 90 17 163/69 96 06/21/24 17:22 98.2 F 85 17 128/52 96 06/21/24 16:57 86 18 153/86 06/21/24 15:43 77 18 156/86 97 06/21/24 14:19 99.0 F 74 20 128/63 95 06/21/24 10:43 99.7 F H 90 19 165/72 95 Intake and Output 06/21/24 06/22/24 06/22/24 22:59 06:59 14:59 Intake Total 120 Output Total 2 Balance 120 -2 Intake: Oral 120 Output: Urine 2 Other: # Voids 1 Weight 103.419 kg GENERAL DESCRIPTION: Elderly female up in the chair, no distress. No tachypnea or accessory muscle of respiration use. HEENT: Shows Pallor , no scleral icterus. Oral mucous membrane is dry. No pharyngeal erythema or thrush NECK: Trachea central, no thyromegaly. LUNGS: Unlabored breathing. Clear to auscultation anteriorly. No wheeze or crackle. HEART: S1, S2, regular rate and rhythm. No loud murmur ABDOMEN: Soft, no tenderness , guarding or rigidity, no organomegaly EXTREMITIES: No edema of feet. SKIN: No rash, no masses palpable. NEUROLOGICAL: The patient is awake, alert, oriented x3, mood and affect normal. Results CBC & Chem 7: 06/22/24 05:30 06/22/24 05:30 Labs: Abnormal Lab Results - Last 24 Hours (Table) 06/21/24 06/21/24 06/21/24 Range/Units 11:02 11:02 11:02 RBC (4.10-5.20) X 10*6/uL Hgb (12.0-15.0) g/dL Hct (37.2-46.3) % Neutrophils # 8.2 H (1.3-7.7) k/uL Potassium 5.4 H (3.5-5.1) mmol/L BUN 44 H (7-17) mg/dL Creatinine 1.80 H (0.52-1.04) mg/dL Est GFR (CKD-EPI) (>=60) BUN/Creatinine Ratio (12.00-20.00) Ratio Glucose 159 H (74-99) mg/dL POC Glucose (mg/dL) (70-110) mg/dL Calcium (8.7-10.3) mg/dL Albumin 3.2 L (3.5-5.0) g/dL Urine Appearance Turbid H (Clear) Urine Protein 1+ H (Negative) Urine Blood Moderate H (Negative) Urine Nitrite Positive H (Negative) Ur Leukocyte Esterase Large H (Negative) Urine RBC 11 H (0-5) /hpf Urine WBC >182 H (0-5) /hpf Urine WBC Clumps Many H (None) /hpf Urine Bacteria Few H (None) /hpf 06/21/24 06/21/24 06/22/24 Range/Units 18:10 20:36 04:53 RBC (4.10-5.20) X 10*6/uL Hgb (12.0-15.0) g/dL Hct (37.2-46.3) % Neutrophils # (1.3-7.7) k/uL Potassium (3.5-5.1) mmol/L BUN (7-17) mg/dL Creatinine (0.52-1.04) mg/dL Est GFR (CKD-EPI) (>=60) BUN/Creatinine Ratio (12.00-20.00) Ratio Glucose (74-99) mg/dL POC Glucose (mg/dL) 197 H 208 H 119 H (70-110) mg/dL Calcium (8.7-10.3) mg/dL Albumin (3.5-5.0) g/dL Urine Appearance (Clear) Urine Protein (Negative) Urine Blood (Negative) Urine Nitrite (Negative) Ur Leukocyte Esterase (Negative) Urine RBC (0-5) /hpf Urine WBC (0-5) /hpf Urine WBC Clumps (None) /hpf Urine Bacteria (None) /hpf 06/22/24 06/22/24 06/22/24 Range/Units 05:30 05:30 05:51 RBC 3.84 L (4.10-5.20) X 10*6/uL Hgb 11.0 L (12.0-15.0) g/dL Hct 33.9 L (37.2-46.3) % Neutrophils # (1.3-7.7) k/uL Potassium (3.5-5.1) mmol/L BUN 35.8 H (7-17) mg/dL Creatinine 1.6 H (0.52-1.04) mg/dL Est GFR (CKD-EPI) 33 L (>=60) BUN/Creatinine Ratio 22.38 H (12.00-20.00) Ratio Glucose 127 H (74-99) mg/dL POC Glucose (mg/dL) 122 H (70-110) mg/dL Calcium 8.3 L (8.7-10.3) mg/dL Albumin (3.5-5.0) g/dL Urine Appearance (Clear) Urine Protein (Negative) Urine Blood (Negative) Urine Nitrite (Negative) Ur Leukocyte Esterase (Negative) Urine RBC (0-5) /hpf Urine WBC (0-5) /hpf Urine WBC Clumps (None) /hpf Urine Bacteria (None) /hpf Assessment and Plan (1) UTI (urinary tract infection) Current Visit: Yes Status: Acute Code(s): N39.0 - URINARY TRACT INFECTION, SITE NOT SPECIFIED SNOMED Code(s): 52818516 (2) Acute pyelonephritis Current Visit: No Status: Acute Code(s): N10 - ACUTE PYELONEPHRITIS SNOMED Code(s): 44887552 Plan: 1patient presented to hospital with fever in this patient who did have nausea urinary frequency significantly positive UA likely representing symptomatic intake infection in this patient who is a renal transplant patient on immunosuppressive medication, more likely dealing with Rocephin sensitive pathogen as the patient mention some improvement after started on antibiotics 2-we will get the patient on Rocephin however adjust the dose of 2 g daily while waiting for the culture to finalize 3gentle IV fluid We will follow on clinical condition and cultures to further adjust medication if needed Thank you for this consultation we will follow the patient along with you Dictation was produced using [employer] software. please excuse any grammatical, word or spelling errors. Time with Patient: Greater than 30
[2024-06-23 06:18] LABS: Glucose,Whole Blood 74 mg/dL (70-110)
[2024-06-23 06:40] LABS: Glucose,Whole Blood 83 mg/dL (70-110)
[2024-06-23 08:30] LABS: BUN/Creat Ratio 20.07 Ratio (12.00-20.00); Blood Urea Nitrogen 28.1 mg/dL (9.0-27.0); Carbon Dioxide 23.5 mmol/L (21.6-31.8); Chloride 106 mmol/L (96-109); Glucose 77 mg/dL (70-110); Magnesium 1.9 mg/dL (1.5-2.4); Potassium 3.8 mmol/L (3.5-5.5); Sodium 137 mmol/L (135-145)
--- NOTE | 2024-06-23 11:11 | P.PN ---
Subjective Patient is seen in follow-up for acute allograft dysfunction. Renal function improving. On IV fluids. No active complaints. Vital signs are stable. General: No acute distress. HEENT: Head exam is unremarkable. LUNGS: No audible rhonchi or wheezes. HEART: Rate and Rhythm are regular. ABDOMEN: Nontender. EXTREMITITES: No edema. Objective - Vital Signs Vital signs: Vital Signs Temp 98.5 F 06/23/24 00:54 Pulse 86 06/23/24 00:54 Resp 17 06/23/24 00:54 BP 145/68 06/23/24 00:54 Pulse Ox 96 06/23/24 00:54 FiO2 Intake & Output 06/22/24 06/23/24 06/23/24 18:59 06:59 18:59 Other: # Voids 3 2 - Labs CBC & Chem 7: 06/22/24 05:30 06/23/24 04:14 Labs: Abnormal Lab Results - Last 24 Hours (Table) 06/22/24 06/22/24 06/22/24 Range/Units 05:30 16:54 20:13 BUN (9.0-27.0) mg/dL Est GFR (CKD-EPI) (>=60) BUN/Creatinine Ratio (12.00-20.00) Ratio POC Glucose (mg/dL) 119 H 141 H (70-110) mg/dL Hemoglobin A1c 8.0 H (<=6.0) % Calcium (8.7-10.3) mg/dL 06/23/24 Range/Units 04:14 BUN 28.1 H (9.0-27.0) mg/dL Est GFR (CKD-EPI) 39 L (>=60) BUN/Creatinine Ratio 20.07 H (12.00-20.00) Ratio POC Glucose (mg/dL) (70-110) mg/dL Hemoglobin A1c (<=6.0) % Calcium 8.0 L (8.7-10.3) mg/dL Microbiology - Last 24 Hours (Table) 06/21/24 11:02 Urine Culture - Preliminary Urine,Voided Gram Neg Bacilli 06/21/24 13:28 Blood Culture - Preliminary Blood Assessment and Plan Plan: Assessment: 1. Acute allograft dysfunction secondary to vasomotor nephropathy secondary to hypovolemia and severe sepsis. Creatinine 1.8 on admission and is 1.4 today. No hydronephrosis noted on ultrasound. 2. Chronic kidney disease stage IIIb with baseline creatinine near 1.3. 3. Status post living related renal allograft in 2008. 4. UTI on antibiotics. Urine culture positive for gram-negative bacilli. 5. Diabetes mellitus. 6. Coronary disease status post CABG. Plan: Maintain IV fluids. Decrease rate to 50 cc an hour. Encouraged oral intake. Follow-up cultures. Follow-up a.m. Prograf level. Continue to monitor renal function and urine output. Add amlodipine 5 mg once daily.
[2024-06-23 11:56] LABS: Glucose,Whole Blood 121 mg/dL (70-110)
[2024-06-23] MEDS: amLODIPine 5 MG TAB PO SCH (12:45)
--- NOTE | 2024-06-23 14:55 | P.PN ---
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 On today's evaluation that is 06/23/2024,the patient remains to be afebrile, patient is on room air not requiring supplemental oxygen and denies any shortness of breath no chest pain or cough.Patient denies having any nausea or vomiting, no abdominal pain and no diarrhea has been reported patient mention some improvement in her urinary symptoms. Patient did have a creatinine 1.4 no CBC was done today urine is growing gram- negative blood cultures are pending Objective - Vital Signs Vital signs: Vital Signs Temp 98.1 F 06/23/24 08:00 Pulse 79 06/23/24 08:00 Resp 18 06/23/24 08:00 BP 128/72 06/23/24 08:00 Pulse Ox 96 06/23/24 08:00 FiO2 Intake & Output 06/22/24 06/23/24 06/23/24 18:59 06:59 18:59 Other: Voiding Method Toilet # Voids 3 2 2 - Exam GENERAL DESCRIPTION: An elderly female up in the chair in no distress RESPIRATORY SYSTEM: Unlabored breathing , decreased breath sounds at bases HEART: S1 S2 regular rate and rhythm , ABDOMEN: Soft , no tenderness EXTREMITIES: No edema feet - Labs CBC & Chem 7: 06/22/24 05:30 06/23/24 04:14 Labs: Abnormal Lab Results - Last 24 Hours (Table) 06/22/24 06/22/24 06/23/24 Range/Units 16:54 20:13 04:14 BUN 28.1 H (9.0-27.0) mg/dL Est GFR (CKD-EPI) 39 L (>=60) BUN/Creatinine Ratio 20.07 H (12.00-20.00) Ratio POC Glucose (mg/dL) 119 H 141 H (70-110) mg/dL Calcium 8.0 L (8.7-10.3) mg/dL 06/23/24 Range/Units 11:55 BUN (9.0-27.0) mg/dL Est GFR (CKD-EPI) (>=60) BUN/Creatinine Ratio (12.00-20.00) Ratio POC Glucose (mg/dL) 121 H (70-110) mg/dL Calcium (8.7-10.3) mg/dL Microbiology - Last 24 Hours (Table) 06/21/24 11:02 Urine Culture - Preliminary Urine,Voided Gram Neg Bacilli 06/21/24 13:28 Blood Culture - Preliminary Blood Assessment and Plan (1) UTI (urinary tract infection) Current Visit: Yes Status: Acute Code(s): N39.0 - URINARY TRACT INFECTION, SITE NOT SPECIFIED SNOMED Code(s): 68189035 (2) Acute pyelonephritis Current Visit: No Status: Acute Code(s): N10 - ACUTE PYELONEPHRITIS SNOMED Code(s): 20670655 Plan: 1patient presented to hospital with fever in this patient who did have nausea urinary frequency significantly positive UA likely representing symptomatic intake infection in this patient who is a renal transplant patient on immunosuppressive medication, more likely dealing with Rocephin sensitive pathogen as the patient mention some improvement after started on antibiotics 2-patient to continue with Rocephin while waiting for the culture to finalize in view of clinical improvement Dictation was produced using [employer] dictation software. please excuse any grammatical, word or spelling errors. Time with Patient: Less than 30
--- NOTE | 2024-06-23 15:16 | P.PN ---
Subjective Progress Note Date: 06/23/24 73 years old female with past medical history of hypertension, hyperlipidemia, coronary artery disease, status post right kidney transplant in 2009 and he follow-up with Dr. Rosa. Patient presents because of generalized weakness and difficulty to getting up from sitting position for the last few days She denies specific symptoms, no chest pain or dyspnea or coughing. No GI/ symptoms. No headache dizziness weakness or numbness of lateralization. She denies smoking alcohol or illicit drugs. She is hemodynamically stable. She had low-grade fever on admission of 99.7 Labs reviewed showing unremarkable CBC, potassium slightly high 5.4, creatinine slightly up at 1.8 with baseline 1.2. Liver enzymes unremarkable Influenza A and type B, RSV, SARS (coronavirus) are undetected Urine analysis is suspicious of infection Chest x-ray is negative for acute process. Objective - Vital Signs Vital signs: Vital Signs Temp 98.5 F 06/23/24 00:54 Pulse 86 06/23/24 00:54 Resp 17 06/23/24 00:54 BP 145/68 06/23/24 00:54 Pulse Ox 96 06/23/24 00:54 FiO2 Intake & Output 06/22/24 06/23/24 06/23/24 18:59 06:59 18:59 Other: # Voids 3 2 - Exam GENERAL: The patient is alert and oriented x3, not in any acute distress. Well developed, well nourished. HEENT: Pupils are round and equally reacting to light. EOMI. No scleral icterus. No conjunctival pallor. Normocephalic, atraumatic. No pharyngeal erythema. No thyromegaly. CARDIOVASCULAR: S1 and S2 present. No murmurs, rubs, or gallops. PULMONARY: Chest is clear to auscultation, no wheezing , no crackles. ABDOMEN: Soft, nontender, nondistended, normoactive bowel sounds. No palpable organomegaly. MUSCULOSKELETAL: No joint swelling or deformity. EXTREMITIES: No cyanosis, clubbing, or pedal edema. NEUROLOGICAL: Gross neurological examination did not reveal any focal deficits. SKIN: No rashes. no petechiae. - Labs CBC & Chem 7: 06/22/24 05:30 06/23/24 04:14 Labs: Abnormal Lab Results - Last 24 Hours (Table) 06/22/24 06/22/2424 Range/Units 05:30 16:54 20:13 BUN (9.0-27.0) mg/dL Est GFR (CKD-EPI) (>=60) BUN/Creatinine Ratio (12.00-20.00) Ratio POC Glucose (mg/dL) 119 H 141 H (70-110) mg/dL Hemoglobin A1c 8.0 H (<=6.0) % Calcium (8.7-10.3) mg/dL 06/23/24 Range/Units 04:14 BUN 28.1 H (9.0-27.0) mg/dL Est GFR (CKD-EPI) 39 L (>=60) BUN/Creatinine Ratio 20.07 H (12.00-20.00) Ratio POC Glucose (mg/dL) (70-110) mg/dL Hemoglobin A1c (<=6.0) % Calcium 8.0 L (8.7-10.3) mg/dL Microbiology - Last 24 Hours (Table) 06/21/24 11:02 Urine Culture - Preliminary Urine,Voided Gram Neg Bacilli 06/21/24 13:28 Blood Culture - Preliminary Blood Assessment and Plan Assessment: Acute urinary tract infection Generalized weakness and malaise and fatigue secondary to above Dehydration secondary to above Acute kidney injury on CKD stage III with mild hyperkalemia, present on admission History of kidney transplant on immunosuppressive therapy Diabetes mellitus Hypertension Hyperlipidemia Obesity with BMI of 36.8 Plan: Start ceftriaxone Follow-up urine culture. Follow-up blood culture Continue with gentle hydration Nephrology consult Infectious disease team consult Labs and medication were reviewed.. Continue same treatment. Continue with symptomatic treatment. Resume home medication. Monitor labs and vitals. DVT and GI prophylaxis. Further recommendations as per clinical course of the patient DVT prophylaxis: Subcutaneous heparin GI Prophylaxis: Pepcid PT/OT: Pending Prognosis is guarded
[2024-06-23 16:56] LABS: Glucose,Whole Blood 132 mg/dL (70-110)
[2024-06-23 21:48] LABS: Glucose,Whole Blood 175 mg/dL (70-110)
[2024-06-24 06:01] LABS: Glucose,Whole Blood 88 mg/dL (70-110)
[2024-06-24 09:35] LABS: Basophils # (A) 0.08 X 10*3/uL (0.00-0.10); Basophils % (A) 1.4 %; Eosinophils # (A) 0.26 X 10*3/uL (0.04-0.35); Eosinophils % (A) 4.5 %; HCT 34.2 % (37.2-46.3); Lymphocytes # (A) 1.35 X 10*3/uL (0.90-5.00); Lymphocytes % (A) 23.2 %; MCH 28.4 pg (27.0-32.0); MCHC 32.2 g/dL (32.0-37.0); MCV 88.1 FL (80.0-97.0); Monocytes # (A) 0.54 X 10*3/uL (0.20-1.00); Monocytes % (A) 9.3 %; NRBC Per 100 WBC 0 X 10*3/uL (0.00-0.01); Neutrophils # (A) 3.47 X 10*3/uL (1.80-7.70); Neutrophils % (A) 59.7 %; Platelet Count 216 X 10*3/uL (140-440); RBC 3.88 X 10*6/uL (4.10-5.20); RDW 13.6 % (11.5-14.5); WBC 5.81 X 10*3/uL (4.50-10.00)
[2024-06-24] MEDS: FAMOTIDINE 20 MG TAB PO SCH (09:51)
[2024-06-24 10:35] LABS: BUN/Creat Ratio 16.58 Ratio (12.00-20.00); Blood Urea Nitrogen 19.9 mg/dL (9.0-27.0); Calcium 8.1 mg/dL (8.7-10.3); Carbon Dioxide 25.1 mmol/L (21.6-31.8); Chloride 108 mmol/L (96-109); Glucose 87 mg/dL (70-110); Potassium 4.2 mmol/L (3.5-5.5); Sodium 142 mmol/L (135-145)
--- NOTE | 2024-06-24 10:43 | P.PN ---
Subjective Patient is seen in follow-up for acute allograft dysfunction. Renal function improving. On IV fluids. No active complaints. Wants to go home. Vital signs are stable. General: No acute distress. HEENT: Head exam is unremarkable. LUNGS: No audible rhonchi or wheezes. HEART: Rate and Rhythm are regular. ABDOMEN: Nontender. EXTREMITITES: No edema. Objective - Vital Signs Vital signs: Vital Signs Temp 98.4 F 06/24/24 07:04 Pulse 75 06/24/24 07:04 Resp 18 06/24/24 07:04 BP 150/84 06/24/24 07:04 Pulse Ox 97 06/24/24 07:04 FiO2 Intake & Output 06/23/24 06/24/24 06/24/24 18:59 06:59 18:59 Output Total 530 Balance -530 Output: Urine 530 Other: Voiding Method Toilet # Voids 3 1 1 - Labs CBC & Chem 7: 06/24/24 05:59 06/24/24 05:59 Labs: Abnormal Lab Results - Last 24 Hours (Table) 06/23/24 06/23/24 06/23/24 Range/Units 11:55 16:54 21:46 RBC (4.10-5.20) X 10*6/uL Hgb (12.0-15.0) g/dL Hct (37.2-46.3) % Immature Gran # (0.00-0.04) X 10*3/uL Est GFR (CKD-EPI) (>=60) POC Glucose (mg/dL) 121 H 132 H 175 H (70-110) mg/dL Calcium (8.7-10.3) mg/dL 06/24/24 06/24/24 Range/Units 05:59 05:59 RBC 3.88 L (4.10-5.20) X 10*6/uL Hgb 11.0 L (12.0-15.0) g/dL Hct 34.2 L (37.2-46.3) % Immature Gran # 0.11 H (0.00-0.04) X 10*3/uL Est GFR (CKD-EPI) 47 L (>=60) POC Glucose (mg/dL) (70-110) mg/dL Calcium 8.1 L (8.7-10.3) mg/dL Microbiology - Last 24 Hours (Table) 06/21/24 11:02 Urine Culture - Final Urine,Voided Escherichia coli 06/21/24 13:28 Blood Culture - Preliminary Blood Assessment and Plan Plan: Assessment: 1. Acute allograft dysfunction secondary to vasomotor nephropathy secondary to hypovolemia and severe sepsis. Creatinine 1.8 on admission and is 1.2 today. No hydronephrosis noted on ultrasound. 2. Chronic kidney disease stage IIIb with baseline creatinine near 1.3. 3. Status post living related renal allograft in 2008. 4. UTI on antibiotics. Urine culture positive for E. coli. 5. Diabetes mellitus. 6. Coronary disease status post CABG. Plan: Hep-Lock IV fluids. Encouraged oral intake. Follow-up a.m. Prograf level. Continue to monitor renal function and urine output. Advised to follow-up outpatient 1 to 2 weeks postdischarge.
[2024-06-24 11:55] LABS: Glucose,Whole Blood 110 mg/dL (70-110)
--- NOTE | 2024-06-24 14:09 | P.PN ---
Subjective Progress Note Date: 06/24/24 73 years old female with past medical history of hypertension, hyperlipidemia, coronary artery disease, status post right kidney transplant in 2009 and he follow-up with Dr. Rosa. Patient presents because of generalized weakness and difficulty to getting up from sitting position for the last few days She denies specific symptoms, no chest pain or dyspnea or coughing. No GI/ symptoms. No headache dizziness weakness or numbness of lateralization. She denies smoking alcohol or illicit drugs. She is hemodynamically stable. She had low-grade fever on admission of 99.7 Labs reviewed showing unremarkable CBC, potassium slightly high 5.4, creatinine slightly up at 1.8 with baseline 1.2. Liver enzymes unremarkable Influenza A and type B, RSV, SARS (coronavirus) are undetected Urine analysis is suspicious of infection Chest x-ray is negative for acute process. 24-hour interval history 06/24/2024 Patient is seen and evaluated resting comfortably in bed; no specific complaints reported Vital signs are reviewed temperature 98.4, pulse 75, respiration 18 and blood pressure 150/84 with O2 saturation 97% WBC 5.8, hemoglobin 11 and platelet count of 216, sodium 142, potassium 4.2, BUNs/creatinine of 19.9/1.2 Patient remains on IV antibiotics; urine culture reveals gram-negative bacilli, E. coli; final sensitivities still pending --Nephrology on board for acute on chronic kidney disease; patient is status post renal transplant Objective - Vital Signs Vital signs: Vital Signs Temp 98.4 F 06/24/24 07:04 Pulse 75 06/24/24 07:04 Resp 18 06/24/24 07:04 BP 150/84 06/24/24 07:04 Pulse Ox 97 06/24/24 07:04 FiO2 Intake & Output 06/23/24 06/24/24 06/24/24 18:59 06:59 18:59 Output Total 530 Balance -530 Output: Urine 530 Other: Voiding Method Toilet # Voids 3 1 1 - Exam GENERAL: The patient is alert and oriented x3, not in any acute distress. Well developed, well nourished. HEENT: Pupils are round and equally reacting to light. EOMI. No scleral icterus. No conjunctival pallor. Normocephalic, atraumatic. No pharyngeal erythema. No thyromegaly. CARDIOVASCULAR: S1 and S2 present. No murmurs, rubs, or gallops. PULMONARY: Chest is clear to auscultation, no wheezing , no crackles. ABDOMEN: Soft, nontender, nondistended, normoactive bowel sounds. No palpable organomegaly. MUSCULOSKELETAL: No joint swelling or deformity. EXTREMITIES: No cyanosis, clubbing, or pedal edema. NEUROLOGICAL: Gross neurological examination did not reveal any focal deficits. SKIN: No rashes. no petechiae. - Labs CBC & Chem 7: 06/24/24 05:59 06/24/24 05:59 Labs: Abnormal Lab Results - Last 24 Hours (Table) 06/23/24 06/23/24 06/23/24 Range/Units 11:55 16:54 21:46 RBC (4.10-5.20) X 10*6/uL Hgb (12.0-15.0) g/dL Hct (37.2-46.3) % Immature Gran # (0.00-0.04) X 10*3/uL POC Glucose (mg/dL) 121 H 132 H 175 H (70-110) mg/dL 06/24/24 Range/Units 05:59 RBC 3.88 L (4.10-5.20) X 10*6/uL Hgb 11.0 L (12.0-15.0) g/dL Hct 34.2 L (37.2-46.3) % Immature Gran # 0.11 H (0.00-0.04) X 10*3/uL POC Glucose (mg/dL) (70-110) mg/dL Microbiology - Last 24 Hours (Table) 06/21/24 11:02 Urine Culture - Final Urine,Voided Escherichia coli 06/21/24 13:28 Blood Culture - Preliminary Blood Assessment and Plan Assessment: Acute urinary tract infection Generalized weakness and malaise and fatigue secondary to above Dehydration secondary to above Acute kidney injury on CKD stage III with mild hyperkalemia, present on admission History of kidney transplant on immunosuppressive therapy Diabetes mellitus Hypertension Hyperlipidemia Obesity with BMI of 36.8 Plan: Start ceftriaxone Follow-up urine culture. Follow-up blood culture Continue with gentle hydration Nephrology consult Infectious disease team consult Labs and medication were reviewed.. Continue same treatment. Continue with symptomatic treatment. Resume home medication. Monitor labs and vitals. DVT and GI prophylaxis. Further recommendations as per clinical course of the patient DVT prophylaxis: Subcutaneous heparin GI Prophylaxis: Pepcid PT/OT: Pending Prognosis is guarded
[2024-06-24 16:49] LABS: Glucose,Whole Blood 187 mg/dL (70-110)
[2024-06-24 19:42] LABS: Glucose,Whole Blood 230 mg/dL (70-110)
[2024-06-25 01:29] VITALS: RESP 18
[2024-06-25 05:47] LABS: Glucose,Whole Blood 75 mg/dL (70-110)
[2024-06-25 06:33] LABS: Glucose,Whole Blood 93 mg/dL (70-110)
[2024-06-25 07:30] LABS: Basophils # (A) 0.1 k/uL (0-0.2); Basophils % (A) 1 %; Eosinophils # (A) 0.2 k/uL (0-0.7); Eosinophils % (A) 4 %; HCT 35.5 % (34.0-46.0); HGB 11.3 gm/dL (11.4-16.0); Hypochromasia Slight; Lymphocytes # (A) 1.3 k/uL (1.0-4.8); Lymphocytes % (A) 24 %; MCH 28.6 pg (25.0-35.0); MCHC 31.9 g/dL (31.0-37.0); MCV 89.7 fL (80.0-100.0); Mean Platelet Volume 8.1; Monocytes # (A) 0.3 k/uL (0-1.0); Monocytes % (A) 5 %; Neutrophils # (A) 3.3 k/uL (1.3-7.7); Neutrophils % (A) 63 %; Platelet Count 278 k/uL (150-450); RBC 3.95 m/uL (3.80-5.40); RDW 13.4 % (11.5-15.5); WBC 5.3 k/uL (3.8-10.6)
[2024-06-25 07:40] LABS: African American GFR (CKD) 60 (>60 ml/min/1.73 sqM); Anion Gap 6 mmol/L; Blood Urea Nitrogen 17 mg/dL (7-17); Calcium 8.5 mg/dL (8.4-10.2); Carbon Dioxide 26 mmol/L (22-30); Chloride 107 mmol/L (98-107); Glucose 97 mg/dL (74-99); Non-African American GFR(CKD) 52 (>60 ml/min/1.73 sqM); Potassium 4.1 mmol/L (3.5-5.1); Sodium 139 mmol/L (137-145)
[2024-06-25 09:08] VITALS: BP 134/80; PULSE 75; TEMP 97.7
--- NOTE | 2024-06-25 10:45 | P.PN ---
Subjective Patient is seen in follow-up for acute allograft dysfunction. Renal function improving. Off IV fluids. No active complaints. Wants to go home. Vital signs are stable. General: No acute distress. HEENT: Head exam is unremarkable. LUNGS: No audible rhonchi or wheezes. HEART: Rate and Rhythm are regular. ABDOMEN: Nontender. EXTREMITITES: No edema. Objective - Vital Signs Vital signs: Vital Signs Temp 97.7 F 06/25/24 07:15 Pulse 75 06/25/24 07:15 Resp 18 06/25/24 07:15 BP 134/80 06/25/24 07:15 Pulse Ox 98 06/25/24 07:15 FiO2 Intake & Output 06/24/24 06/25/24 06/25/24 18:59 06:59 18:59 Other: Voiding Method Toilet Toilet # Voids 1 3 - Labs CBC & Chem 7: 06/25/24 07:05 06/25/24 07:05 Labs: Abnormal Lab Results - Last 24 Hours (Table) 06/23/24 06/24/24 06/24/24 Range/Units 04:14 16:48 19:41 Hgb (11.4-16.0) gm/dL Creatinine (0.52-1.04) mg/dL POC Glucose (mg/dL) 187 H 230 H (70-110) mg/dL Tacrolimus 4.8 L (5.0-20.0) ng/mL 06/25/24 06/25/24 Range/Units 07:05 07:05 Hgb 11.3 L (11.4-16.0) gm/dL Creatinine 1.05 H (0.52-1.04) mg/dL POC Glucose (mg/dL) (70-110) mg/dL Tacrolimus (5.0-20.0) ng/mL Microbiology - Last 24 Hours (Table) 06/21/24 13:28 Blood Culture - Preliminary Blood Assessment and Plan Plan: Assessment: 1. Acute allograft dysfunction secondary to vasomotor nephropathy secondary to hypovolemia and severe sepsis. Creatinine 1.8 on admission and is 1.05 today. No hydronephrosis noted on ultrasound. 2. Chronic kidney disease stage IIIb with baseline creatinine near 1.2-1.3. 3. Status post living related renal allograft in 2008. 4. UTI on antibiotics. Urine culture positive for E. coli. 5. Diabetes mellitus. 6. Coronary disease status post CABG. Plan: Encouraged oral intake. Prograf level 4.8 dated June 23, 2024. Continue to monitor renal function and urine output. Advised to follow-up outpatient 1 to 2 weeks postdischarge.
[2024-06-25 11:45] LABS: Glucose,Whole Blood 164 mg/dL (70-110)
--- NOTE | 2024-06-25 14:56 | P.PN ---
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 On today's evaluation that is 06/24/2024, the patient continues to be afebrile, the patient is on room air and breathing comfortably, the Pt denies having any chest pain or cough, the patient denies having any abdominal pain no vomiting or any diarrhea has been reported by the nursing staff, patient mention feeling better since he was going home. Patient white count is 5.1, creatinine 1.2 urine has been finalized with an E. coli that is a sensitive pathogen Objective - Vital Signs Vital signs: Vital Signs Temp 98.4 F 06/24/24 07:04 Pulse 75 06/24/24 07:04 Resp 18 06/24/24 07:04 BP 150/84 06/24/24 07:04 Pulse Ox 97 06/24/24 07:04 FiO2 Intake & Output 06/23/24 06/24/24 06/24/24 18:59 06:59 18:59 Output Total 530 Balance -530 Output: Urine 530 Other: Voiding Method Toilet Toilet # Voids 3 1 1 - Exam GENERAL DESCRIPTION: An elderly female up in the chair in no distress RESPIRATORY SYSTEM: Unlabored breathing , decreased breath sounds at bases HEART: S1 S2 regular rate and rhythm , ABDOMEN: Soft , no tenderness EXTREMITIES: No edema feet - Labs CBC & Chem 7: 06/25/24 07:05 06/25/24 07:05 Labs: Abnormal Lab Results - Last 24 Hours (Table) 06/23/24 06/23/24 06/23/24 Range/Units 04:14 16:54 21:46 RBC (4.10-5.20) X 10*6/uL Hgb (12.0-15.0) g/dL Hct (37.2-46.3) % Immature Gran # (0.00-0.04) X 10*3/uL Est GFR (CKD-EPI) (>=60) POC Glucose (mg/dL) 132 H 175 H (70-110) mg/dL Calcium (8.7-10.3) mg/dL Tacrolimus 4.8 L (5.0-20.0) ng/mL 06/24/24 06/24/24 Range/Units 05:59 05:59 RBC 3.88 L (4.10-5.20) X 10*6/uL Hgb 11.0 L (12.0-15.0) g/dL Hct 34.2 L (37.2-46.3) % Immature Gran # 0.11 H (0.00-0.04) X 10*3/uL Est GFR (CKD-EPI) 47 L (>=60) POC Glucose (mg/dL) (70-110) mg/dL Calcium 8.1 L (8.7-10.3) mg/dL Tacrolimus (5.0-20.0) ng/mL Microbiology - Last 24 Hours (Table) 06/21/24 11:02 Urine Culture - Final Urine,Voided Escherichia coli 06/21/24 13:28 Blood Culture - Preliminary Blood Assessment and Plan (1) UTI (urinary tract infection) Status: Acute Code(s): N39.0 - URINARY TRACT INFECTION, SITE NOT SPECIFIED SNOMED Code(s): 38830584 (2) Acute pyelonephritis Status: Acute Code(s): N10 - ACUTE PYELONEPHRITIS SNOMED Code(s): 32652640 Plan: 1patient presented to hospital with fever in this patient who did have nausea urinary frequency significantly positive UA likely representing symptomatic intake infection in this patient who is a renal transplant patient on immuno suppressive medication, more likely dealing with Rocephin sensitive pathogen as the patient mention some improvement after started on antibiotics 2-patient did have clinical improvement D and will continue with Rocephin we will plan to finish her with oral Ceftin discussed with admitting physician Dictation was produced using [employer] dictation software. please excuse any grammatical, word or spelling errors. Time with Patient: Less than 30
--- NOTE | 2024-06-25 14:57 | P.PN ---
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 On today's evaluation that is 06/25/2024, Patient is afebrile patient is currently on room air and denies having any shortness of breath, the patient denies any chest pain or cough, the patient denies any nausea vomiting did not have any abdominal pain and no diarrhea. Patient white count is 5.3, creatinine 1.05 blood culture has been negative E. coli Objective - Vital Signs Vital signs: Vital Signs Temp 97.7 F 06/25/24 07:15 Pulse 75 06/25/24 07:15 Resp 18 06/25/24 08:45 BP 134/80 06/25/24 07:15 Pulse Ox 98 06/25/24 07:15 FiO2 Intake & Output 06/24/24 06/25/24 06/25/24 18:59 06:59 18:59 Other: Voiding Method Toilet Toilet # Voids 1 3 - Exam GENERAL DESCRIPTION: An elderly female up in the chair in no distress RESPIRATORY SYSTEM: Unlabored breathing , decreased breath sounds at bases HEART: S1 S2 regular rate and rhythm , ABDOMEN: Soft , no tenderness EXTREMITIES: No edema feet - Labs CBC & Chem 7: 06/25/24 07:05 06/25/24 07:05 Labs: Abnormal Lab Results - Last 24 Hours (Table) 06/24/24 06/24/24 06/25/24 Range/Units 16:48 19:41 07:05 Hgb 11.3 L (11.4-16.0) gm/dL Creatinine (0.52-1.04) mg/dL POC Glucose (mg/dL) 187 H 230 H (70-110) mg/dL 06/25/24 06/25/24 Range/Units 07:05 11:43 Hgb (11.4-16.0) gm/dL Creatinine 1.05 H (0.52-1.04) mg/dL POC Glucose (mg/dL) 164 H (70-110) mg/dL Microbiology - Last 24 Hours (Table) 06/21/24 13:28 Blood Culture - Preliminary Blood Assessment and Plan (1) UTI (urinary tract infection) Status: Acute Code(s): N39.0 - URINARY TRACT INFECTION, SITE NOT SPECIFIED SNOMED Code(s): 66654308 (2) Acute pyelonephritis Status: Acute Code(s): N10 - ACUTE PYELONEPHRITIS SNOMED Code(s): 75098850 Plan: 1patient presented to hospital with fever in this patient who did have nausea urinary frequency significantly positive UA likely representing symptomatic intake infection in this patient who is a renal transplant patient on immunosuppressive medication, more likely dealing with Rocephin sensitive pathogen as the patient mention some improvement after started on antibiotics 2-patient has shown clinical improvement and blood culture has been negative patient will be able to finish therapy with oral Ceftin prescription already sent Dictation was produced using [employer] dictation software. please excuse any grammatical, word or spelling errors. Time with Patient: Less than 30
== END 2024-06-25 14:31 | disposition home or self-care (01) | DRG 871 ==
LOC: EC 10:28 → 4SSUR 13:18 → OBSVTOIN 13:18 → 4SSUR 16:18
PROVIDERS: ADMIT Internal Medicine; ATTEND Internal Medicine
DX: A41.51 Sepsis due to Escherichia coli [E. coli] (principal); N17.0 Acute kidney failure with tubular necrosis; D84.821 Immunodeficiency due to drugs; N10 Acute pyelonephritis; T86.19 Other complication of kidney transplant; E11.21 Type 2 diabetes mellitus with diabetic nephropathy; Z11.52 Encounter for screening for COVID-19; I12.9 Hypertensive chronic kidney disease with stage 1 through stage 4 chronic kidney disease, or unspecified chronic kidney disease; R53.83 Other fatigue; R65.20 Severe sepsis without septic shock; N18.32 Chronic kidney disease, stage 3b; E11.22 Type 2 diabetes mellitus with diabetic chronic kidney disease; E66.9 Obesity, unspecified; E78.5 Hyperlipidemia, unspecified; E86.0 Dehydration; E86.1 Hypovolemia; E87.5 Hyperkalemia; I25.10 Atherosclerotic heart disease of native coronary artery without angina pectoris; I25.2 Old myocardial infarction; Y83.0 Surgical operation with transplant of whole organ as the cause of abnormal reaction of the patient, or of later complication, without mention of misadventure at the time of the procedure; Z68.36 Body mass index [BMI] 36.0-36.9, adult; Z79.60 Long term (current) use of unspecified immunomodulators and immunosuppressants; Z79.82 Long term (current) use of aspirin; Z79.899 Other long term (current) drug therapy; Z80.0 Family history of malignant neoplasm of digestive organs; Z80.51 Family history of malignant neoplasm of kidney; Z82.49 Family history of ischemic heart disease and other diseases of the circulatory system; Z87.891 Personal history of nicotine dependence; Z90.710 Acquired absence of both cervix and uterus; Z95.1 Presence of aortocoronary bypass graft; Z87.440 Personal history of urinary (tract) infections; Z87.19 Personal history of other diseases of the digestive system; Z98.42 Cataract extraction status, left eye; Z98.41 Cataract extraction status, right eye; Z91.018 Allergy to other foods; Z91.048 Other nonmedicinal substance allergy status; Z88.8 Allergy status to other drugs, medicaments and biological substances; Z88.6 Allergy status to analgesic agent
CPT/HCPCS: 36415; 51798; 71046; 76770; 80048; 80053; 80197; 81001; 83036; 83605; 83735; 85025; 87040; 87077; 87086; 87186; 87636; 96361; 96365; 96375; 99285

== ENCOUNTER 2024-11-15 09:37 | Observation (INO) | payer MEDICARE ==
--- NOTE | 2024-11-15 10:25 | ED ---
General Adult HPI - General Chief complaint: Dizziness Stated complaint: Low blood pressure, urogenital issues, dizziness Time Seen by Provider: 11/15/24 09:47 Source: patient, RN notes reviewed, old records reviewed Mode of arrival: ambulatory Limitations: no limitations - History of Present Illness Initial comments: 74-year-old female with history of renal transplant 16 years ago presenting with low blood pressure and low heart rate. Patient states this has been ongoing for the past several weeks may be more. She reports a decreased urine output. She denies central chest pain. Denies difficulty breathing. Denies nausea vomiting. She has been compliant with her medications including her anti- rejection medications. - Related Data Home Medications Medication Instructions Recorded Confirmed Mycophenolate Sodium Dr [Myfortic] 360 mg PO BID 03/14/14 11/15/24 Tacrolimus [Prograf] 2 mg PO DAILY 09/13/17 11/15/24 Isosorbide Mononitrate ER [Imdur] 30 mg PO DAILY 11/26/17 11/15/24 Insulin Glargine,Hum.rec.anlog 44 units SQ HS 04/18/20 11/15/24 [[place] Solostar] Magnesium Oxide 400 mg PO BID 04/18/20 11/15/24 Tacrolimus [Prograf] 1 mg PO HS 04/18/20 11/15/24 Cranberry Fruit Extract [Cranberry] 1,500 mg PO DAILY 06/21/24 11/15/24 INSULIN ASPART (NovoLOG) [NovoLOG See Protocol SQ AC-TID 06/21/24 11/15/24 (formulary)] Ascorbic Acid [Vitamin C] 1,000 mg PO DAILY 11/15/24 11/15/24 Cholecalciferol (Vitamin D3) 50 mcg PO BID 11/15/24 11/15/24 [Vitamin D3 (50 Mcg = 2000 Iu)] Previous Rx's Medication Instructions Recorded Aspirin 81 mg PO DAILY #30 chew 04/22/20 Atorvastatin [Lipitor] 40 mg PO HS #30 tab 04/22/20 Allergies Allergy/AdvReac Type Severity Reaction Status Date / Time metoclopramide HCl Allergy Unknown Verified 11/15/24 12:13 [From Reglan] adhesive tape AdvReac tears skin Verified 11/15/24 12:13 grapefruit [Grapefruit] AdvReac reaction Verified 11/15/24 12:13 with simvastatin ibuprofen AdvReac kidney Verified 11/15/24 12:13 failure/transplant ropinirole [From Requip] AdvReac LEG CRAMPS Verified 11/15/24 12:13 nupur Allergy Rash/Hives Uncoded 11/15/24 12:13 Review of Systems ROS Statement: Those systems with pertinent positive or pertinent negative responses have been documented in the HPI. ROS Other: All systems not noted in ROS Statement are negative. Past Medical History Past Medical History: Coronary Artery Disease (CAD), Diabetes Mellitus, Eye Disorder, Hyperlipidemia, Hypertension, Myocardial Infarction (OK), Renal D isease, Skin Disorder Additional Past Medical History / Comment(s): R eye glaucoma, retinal bleed and little vision, renal failure Stage 3 - R renal transplant in 2008, UTIs with sepsis, Last Myocardial Infarction Date:: 2009 History of Any Multi-Drug Resistant Organisms: None Reported Past Surgical History: Appendectomy, Cholecystectomy, Coronary Bypass/CABG, Heart Catheterization, Hernia Repair, Hysterectomy Additional Past Surgical History / Comment(s): 2009 right kidney transplant, 4 vessel CABG in 2009, umbilical hernia repair, colonoscopies, silvia cataract removed, R eye laser surgeries. Past Anesthesia/Blood Transfusion Reactions: No Reported Reaction Additional Past Anesthesia/Blood Transfusion Reaction / Comment(s): unknown Past Psychological History: No Psychological Hx Reported Smoking Status: Former smoker Past Alcohol Use History: None Reported Past Drug Use History: None Reported - Past Family History Brother(s) Family Medical History: Cancer Additional Family Medical History / Comment(s): one brother had kidney cancer. one brother had prostate cancer Mother Family Medical History: Coronary Artery Disease (CAD) Additional Family Medical History / Comment(s): mom had heart disease Father Family Medical History: Cancer Additional Family Medical History / Comment(s): lung and pancreatic cancer General Exam Limitations: no limitations General appearance: alert, in no apparent distress Head exam: Present: atraumatic, normocephalic Eye exam: Present: normal appearance, PERRL ENT exam: Present: normal exam Neck exam: Present: normal inspection. Absent: tenderness, meningismus Respiratory exam: Present: normal lung sounds bilaterally. Absent: respiratory distress, wheezes Cardiovascular Exam: Present: normal rhythm, bradycardia GI/Abdominal exam: Present: soft. Absent: distended, tenderness Course Vital Signs 02/03/0411/15/24 11/15/24 09:51 10:29 11:44 Temperature 98.4 F Pulse Rate 38 L 39 L 47 L Respiratory 22 18 18 Rate Blood Pressure 109/59 133/49 186/74 O2 Sat by Pulse 99 98 Oximetry Medical Decision Making - Medical Decision Making Was pt. sent in by a medical professional or institution (, [facility], LOGISTICS OPERATIONS MANAGER, urgent care, hospital, or [facility]...) When possible be specific @ -No Did you speak to anyone other than the patient for history (EMS, parent, family, police, friend...)? What history was obtained from this source @ -No Did you review nursing and triage notes (agree or disagree)? Why? @ -I reviewed and agree with nursing and triage notes Were old charts reviewed (outside hosp., previous admission, EMS record, old EKG, old radiological studies, urgent care reports/EKG's, [facility] records)? Report findings @ -No old charts were reviewed Differential Diagnosis (chest pain, altered mental status, abdominal pain women, abdominal pain men, vaginal bleeding, weakness, fever, dyspnea, syncope, headache, dizziness, GI bleed, back pain, seizure, CVA, palpatations, mental health, musculoskeletal)? @ -Not applicable EKG interpreted by me (3pts min.). @ -Sinus bradycardia rate of 40, NV interval 160, QRS duration 110, QTc 397 X-rays interpreted by me (1pt min.). @ -None done CT interpreted by me (1pt min.). @ -None done U/S interpreted by me (1pt. min.). @ -None done What testing was considered but not performed or refused? (CT, X-rays, U/S, labs)? Why? @ -None What meds were considered but not given or refused? Why? @ -None Did you discuss the management of the patient with other professionals (professionals i.e. [facility]ON Luque, LOGISTICS OPERATIONS MANAGER, lab, RT, psych nurse, rn social services, entrepreneurship program director, teacher, front desk officer, case management director)? Give summary @ -Discussed with [facility], will admit Was smoking cessation discussed for >3mins.? @ -No Was critical care preformed (if so, how long)? @Yes, 35 minutes Were there social determinants of health that impacted care today? How? (Homelessness, low income, unemployed, alcoholism, drug addiction, transportation, low edu. Level, literacy, decrease access to med. care, penitentiary, rehab)? @ -No Was there de-escalation of care discussed even if they declined (Discuss DNR or withdrawal of care, Hospice)? DNR status @ -No What co-morbidities impacted this encounter? (DM, HTN, Smoking, COPD, CAD, Cancer, CVA, ARF, Chemo, Hep., AIDS, mental health diagnosis, sleep apnea, morbid obesity)? @ -Chronic kidney disease history of renal transplant Was patient admitted / discharged? Hospital course, mention meds given and route, prescriptions, significant lab abnormalities, going to OR and other pertinent info. @ -74-year-old female presenting with bradycardia and hypotension. Patient's heart rate is in the high 30s. This is sinus bradycardia. Blood pressure is stable. She has history of chronic kidney disease status post renal transplant. Potassium is only mildly elevated at 5.4. This is treated with IV fluids. Chest x-ray is clear. Patient will be admitted to a monitored bed with consults to both cardiology and nephrology. She is not on any medications that would lower her heart rate. Undiagnosed new problem with uncertain prognosis? @ -No Drug Therapy requiring intensive monitoring for toxicity (Heparin, Nitro, Insulin, Cardizem)? @ -No Were any procedures done? @ -No Diagnosis/symptom? @ -Symptomatic bradycardia Acute, or Chronic, or Acute on Chronic? @ -Acute Uncomplicated (without systemic symptoms) or Complicated (systemic symptoms)? @ -Default Side effects of treatment? @ -No Exacerbation, Progression, or Severe Exacerbation? @ -No Poses a threat to life or bodily function? How? (Chest pain, USA, OK, pneumonia, PE, COPD, DKA, ARF, appy, cholecystitis, CVA, Diverticulitis, Homicidal, Suicidal, threat to staff... and all critical care pts) @ -[Yes, bradycardia - Lab Data Result diagrams: 11/15/24 10:50 11/15/24 10:50 Lab Results 11/15/24 11/15/24 11/15/24 Range/Units 10:50 10:50 10:50 WBC 6.5 (3.8-10.6) k/uL RBC 4.11 (3.80-5.40) m/uL Hgb 11.8 (11.4-16.0) gm/dL Hct 35.5 (34.0-46.0) % MCV 86.5 (80.0-100.0) fL MCH 28.7 (25.0-35.0) pg MCHC 33.2 (31.0-37.0) g/dL RDW 13.5 (11.5-15.5) % Plt Count 191 (150-450) k/uL MPV 8.4 Neutrophils % 56 % Lymphocytes % 28 % Monocytes % 4 % Eosinophils % 9 % Basophils % 1 % Neutrophils # 3.7 (1.3-7.7) k/uL Lymphocytes # 1.8 (1.0-4.8) k/uL Monocytes # 0.3 (0-1.0) k/uL Eosinophils # 0.6 (0-0.7) k/uL Basophils # 0.0 (0-0.2) k/uL PT 10.7 (10.0-12.5) sec INR 1.0 (<1.2) APTT 22.4 (22.0-30.0) sec Sodium 139 (137-145) mmol/L Potassium 5.4 H (3.5-5.1) mmol/L Chloride 102 (98-107) mmol/L Carbon Dioxide 29 (22-30) mmol/L Anion Gap 8 mmol/L BUN 44 H (7-17) mg/dL Creatinine 2.33 H (0.52-1.04) mg/dL Est GFR (CKD-EPI)AfAm 23 (>60 ml/min/1.73 sqM) Est GFR (CKD-EPI)NonAf 20 (>60 ml/min/1.73 sqM) Glucose 94 (74-99) mg/dL Calcium 9.3 (8.4-10.2) mg/dL Magnesium 2.8 H (1.6-2.3) mg/dL Total Bilirubin 0.9 (0.2-1.3) mg/dL AST 24 (14-36) U/L ALT 16 (4-34) U/L Alkaline Phosphatase 118 (38-126) U/L Troponin I (0.000-0.034) ng/mL Total Protein 7.3 (6.3-8.2) g/dL Albumin 3.9 (3.5-5.0) g/dL 11/15/24 Range/Units 10:50 WBC (3.8-10.6) k/uL RBC (3.80-5.40) m/uL Hgb (11.4-16.0) gm/dL Hct (34.0-46.0) % MCV (80.0-100.0) fL MCH (25.0-35.0) pg MCHC (31.0-37.0) g/dL RDW (11.5-15.5) % Plt Count (150-450) k/uL MPV Neutrophils % % Lymphocytes % % Monocytes % % Eosinophils % % Basophils % % Neutrophils # (1.3-7.7) k/uL Lymphocytes # (1.0-4.8) k/uL Monocytes # (0-1.0) k/uL Eosinophils # (0-0.7) k/uL Basophils # (0-0.2) k/uL PT (10.0-12.5) sec INR (<1.2) APTT (22.0-30.0) sec Sodium (137-145) mmol/L Potassium (3.5-5.1) mmol/L Chloride (98-107) mmol/L Carbon Dioxide (22-30) mmol/L Anion Gap mmol/L BUN (7-17) mg/dL Creatinine (0.52-1.04) mg/dL Est GFR (CKD-EPI)AfAm (>60 ml/min/1.73 sqM) Est GFR (CKD-EPI)NonAf (>60 ml/min/1.73 sqM) Glucose (74-99) mg/dL Calcium (8.4-10.2) mg/dL Magnesium (1.6-2.3) mg/dL Total Bilirubin (0.2-1.3) mg/dL AST (14-36) U/L ALT (4-34) U/L Alkaline Phosphatase (38-126) U/L Troponin I 0.034 (0.000-0.034) ng/mL Total Protein (6.3-8.2) g/dL Albumin (3.5-5.0) g/dL Critical Care Time Critical Care Time: Yes Total Critical Care Time: 35 Disposition Clinical Impression: Bradycardia Disposition: ADMITTED IP TO THIS HOSP Condition: Stable Is patient prescribed a controlled substance at d/c from ED?: No Referrals: Joel Wong DO [Primary Care Provider] - 1-2 days Time of Disposition: 13:02
[2024-11-15 11:39] LABS: Basophils % (A) 1 %; Eosinophils # (A) 0.6 k/uL (0-0.7); Eosinophils % (A) 9 %; HCT 35.5 % (34.0-46.0); HGB 11.8 gm/dL (11.4-16.0); Lymphocytes # (A) 1.8 k/uL (1.0-4.8); Lymphocytes % (A) 28 %; MCH 28.7 pg (25.0-35.0); MCHC 33.2 g/dL (31.0-37.0); MCV 86.5 fL (80.0-100.0); Mean Platelet Volume 8.4; Monocytes # (A) 0.3 k/uL (0-1.0); Monocytes % (A) 4 %; Neutrophils # (A) 3.7 k/uL (1.3-7.7); Neutrophils % (A) 56 %; Platelet Count 191 k/uL (150-450); RBC 4.11 m/uL (3.80-5.40); RDW 13.5 % (11.5-15.5); WBC 6.5 k/uL (3.8-10.6)
[2024-11-15 11:44] LABS: Partial Thromboplastin Time 22.4 sec (22.0-30.0); Prothrombin Time 10.7 sec (10.0-12.5)
[2024-11-15 11:50] LABS: ALT 16 U/L (4-34); AST 24 U/L (14-36); African American GFR (CKD) 23 (>60 ml/min/1.73 sqM); Albumin 3.9 g/dL (3.5-5.0); Alkaline Phosphatase 118 U/L (38-126); Anion Gap 8 mmol/L; Blood Urea Nitrogen 44 mg/dL (7-17); Calcium 9.3 mg/dL (8.4-10.2); Carbon Dioxide 29 mmol/L (22-30); Chloride 102 mmol/L (98-107); Glucose 94 mg/dL (74-99); Magnesium 2.8 mg/dL (1.6-2.3); Non-African American GFR(CKD) 20 (>60 ml/min/1.73 sqM); Potassium 5.4 mmol/L (3.5-5.1); Sodium 139 mmol/L (137-145); Total Bilirubin 0.9 mg/dL (0.2-1.3); Total Protein 7.3 g/dL (6.3-8.2)
--- NOTE | 2024-11-15 12:07 | XR ---
EXAMINATION TYPE: XR chest 2V DATE OF EXAM: 11/15/2024 11:43 AM COMPARISON: 06/21/24 CLINICAL INDICATION: Female, 74 years old with history of dysrhythmia: Shortness of breath TECHNIQUE: XR chest 2V views of the chest are obtained. FINDINGS: Scattered senescent parenchymal changes noted. Hyperinflation compatible with COPD. No evidence for infiltrate. No evidence for atelectasis. Heart size is stable. Mediastinal structures are stable and grossly unremarkable. No evidence for hilar prominence. Degenerative changes dorsal spine. IMPRESSION: 1. No evidence for acute pulmonary disease. [facility], , 11/15/2024 12:04 PM
--- NOTE | 2024-11-15 12:26 | US ---
EXAMINATION TYPE: US renals and bladder DATE OF EXAM: 11/15/2024 COMPARISON: US(06/22/2024) CLINICAL INDICATION: Female, 74 years old with history of decreased urine output/hx of renal transpla nt; TECHNIQUE: Grayscale imaging of the bilateral kidneys and urinary bladder: FINDINGS: Pt has known Right Transplant Kidney in RLQ EXAM MEASUREMENTS: Right [facility]: 4.9x2.6x2.9 cm Left [facility] Kid[facility]: 5.0x2.7x3.0 cm RT [place] KIDNEY RLQ: 11.6x3.8x5.3cm limited exam due to pt body habitus & overlying bowel Right [facility] Kidney: No hydronephrosis or masses seen Left [facility] [place] Kidney: No hydronephrosis or masses seen Rt [place] Kidney: No hydronephrosis or masses seen Bladder: Partially visualized Bilateral Jets seen: Limited There is no evidence for hydronephrosis at this point in time. No nephrolithiasis is seen. No swathi s are identified. The urinary bladder is anechoic. IMPRESSION: Transplanted kidney without evidence for hydronephrosis. [facility] kidneys are also free of hydronephros is or nephrolithiasis. Left [place] kidney is atrophic. [facility], , 11/15/2024 12:23 PM
[2024-11-15] MEDS ORDERED: NALOXONE 0.4 MG/ML 1 ML VIAL IV PRN (12:58)
[2024-11-15] MEDS ORDERED: ACETAMINOPHEN TAB 325 MG TAB PO PRN (12:58)
[2024-11-15 13:41] LABS: Appearance,Urine Cloudy (Clear); Bacteria,Urine Rare /hpf; Bilirubin,Urine Negative (Negative); Blood,Urine Negative (Negative); Color,Urine Yellow; Glucose,Urine (UA) Negative (Negative); Hyaline Casts,Urine 8 /lpf (0-2); Ketones,Urine Negative (Negative); Leukocyte Esterase,Urine Trace (Negative); Mucus,Urine Rare /hpf; Nitrite,Urine Negative (Negative); PH, Urine 5.5 (5.0-8.0); Protein,Urine Trace (Negative); RBC,Urine 1 /hpf (0-5); Specific Gravity,Urine 1.023 (1.001-1.035); Squamous Epithelial Cell,Urine 17 /hpf (0-4); Urobilinogen,Urine <2.0 mg/dL (<2.0); WBC,Urine 3 /hpf (0-5)
[2024-11-15] MEDS: SODIUM CHLORIDE 0.9% 1,000 ML IV SCH (13:44)
[2024-11-15 13:50] LABS: Glucose,Whole Blood 101 mg/dL (70-110)
[2024-11-15] MEDS ORDERED: DEXTROSE 50% SYRINGE 50 ML IVP PRN ×2 (15:56)
[2024-11-15 17:15] LABS: Glucose,Whole Blood 78 mg/dL (70-110)
[2024-11-15] MEDS: INSULIN ASPART (NovoLOG) 100 UNIT/ML VIAL SQ SCH (17:23)
[2024-11-15] MEDS: hydrALAZINE HCL 20 MG/ML 1 ML VIAL IVP PRN (17:53)
[2024-11-15 20:28] LABS: Glucose,Whole Blood 157 mg/dL (70-110)
[2024-11-15] MEDS: INSULIN DETEMIR (LEVEMIR) 100 UNIT/ML SYR SQ SCH (20:36)
[2024-11-15] MEDS: ATORVASTATIN 40 MG TAB PO SCH (20:54)
[2024-11-15] MEDS: MYCOPHENOLATE SODIUM DR 180 MG TABLET.DR PO SCH (20:54)
[2024-11-15] MEDS: TACROLIMUS 1 MG CAP PO SCH (20:54)
[2024-11-15] MEDS: MAGNESIUM OXIDE 400 MG TAB PO SCH (20:54)
[2024-11-15] MEDS: CHOLECALCIFEROL 25 MCG (1000 IU) TABLET PO SCH (20:54)
--- NOTE | 2024-11-15 23:34 | HP ---
HISTORY AND PHYSICAL CHIEF COMPLAINT: Dizziness. HISTORY OF PRESENT ILLNESS: This is a 74-year-old woman with a past medical history of CAD, diabetes mellitus, and other medical issues, was complaining of dizziness and weakness. The patient noted to have bradycardia and hypotension. The patient came to [facility]. These symptoms are worsening over the past several days according to her. There is no history of any fever, rigors, or chills. PAST MEDICAL HISTORY: Reviewed include CAD, diabetes mellitus, hypertension. Rest of the history and rest of the chart are also reviewed. HOME MEDICATIONS: Reviewed include insulin glargine. Dose and rest of medications noted. ALLERGIES: Reviewed include Reglan. FAMILY HISTORY: History of CAD. SOCIAL HISTORY: Previous history of smoking. REVIEW OF SYSTEMS: Fourteen-point review of systems is negative except as mentioned earlier. PHYSICAL EXAMINATION: VITAL SIGNS: Pulse is 41, blood pressure 117/62, respirations 20. HEENT: Conjunctivae normal. NECK: No JVD. CARDIOVASCULAR: S1, S2. RESPIRATIONS: Breath sounds diminished at the bases. ABDOMEN: Soft, nontender. LEGS: No edema. NERVOUS SYSTEM: Nonfocal. LABORATORY DATA: Creatinine 2.33, baseline creatinine was 1.05. ASSESSMENT: 1. Symptomatic bradycardia lead to hypotension. 2. Acute renal failure with acute tubular necrosis. 3. Dizziness. 4. Coronary artery disease. 5. Diabetes mellitus, type 2. 6. Coronary artery bypass graft. 7. History of renal transplant. 8. Multiple complex medical issues. RECOMMENDATIONS AND DISCUSSION: This is a 74-year-old woman, who presented with multiple complex medical issues. We will monitor the patient closely. Continue the current medications. Continue with IV fluids. Cardiology and Nephrology consultations. Avoid nephrotoxic medications. Prognosis guarded because of multiple complex medical issues. Continue the telemetry. Avoid beta blockers. Guarded prognosis. Further recommendations to follow. See orders for further details. MMODL / IJN: [id number] /
[2024-11-16 01:59] LABS: Glucose,Whole Blood 117 mg/dL (70-110)
[2024-11-16 05:35] LABS: Glucose,Whole Blood 92 mg/dL (70-110)
[2024-11-16 06:42] LABS: Basophils # (A) 0.1 k/uL (0-0.2); Basophils % (A) 1 %; Eosinophils # (A) 0.5 k/uL (0-0.7); Eosinophils % (A) 10 %; HCT 38.7 % (34.0-46.0); HGB 12.7 gm/dL (11.4-16.0); Lymphocytes # (A) 1.2 k/uL (1.0-4.8); Lymphocytes % (A) 25 %; MCH 28.5 pg (25.0-35.0); MCHC 32.8 g/dL (31.0-37.0); MCV 86.9 fL (80.0-100.0); Mean Platelet Volume 8.1; Monocytes # (A) 0.3 k/uL (0-1.0); Monocytes % (A) 5 %; Neutrophils # (A) 2.9 k/uL (1.3-7.7); Neutrophils % (A) 57 %; Platelet Count 165 k/uL (150-450); RBC 4.45 m/uL (3.80-5.40); RDW 13.1 % (11.5-15.5)
[2024-11-16 06:51] LABS: ALT 16 U/L (4-34); AST 25 U/L (14-36); African American GFR (CKD) 30 (>60 ml/min/1.73 sqM); Albumin 3.6 g/dL (3.5-5.0); Albumin/Globulin Ratio 1.1; Alkaline Phosphatase 123 U/L (38-126); Anion Gap 9 mmol/L; Blood Urea Nitrogen 42 mg/dL (7-17); Carbon Dioxide 27 mmol/L (22-30); Chloride 104 mmol/L (98-107); Globulin 3.3 g/dL; Glucose 85 mg/dL (74-99); Non-African American GFR(CKD) 26 (>60 ml/min/1.73 sqM); Potassium 4.7 mmol/L (3.5-5.1); Sodium 140 mmol/L (137-145); Total Protein 6.9 g/dL (6.3-8.2)
[2024-11-16] MEDS: TACROLIMUS 1 MG CAP PO SCH (07:53)
[2024-11-16] MEDS: ASCORBIC ACID 500 MG TAB PO SCH (07:54)
[2024-11-16] MEDS: ASPIRIN 81 MG PO SCH (07:54)
[2024-11-16] MEDS: ISOSORBIDE MONONITRATE ER 30 MG TAB.ER.24H PO SCH (08:59)
[2024-11-16] MEDS ORDERED: CRANBERRY FRUIT EXTRACT 500 MG PO SCH (09:00)
--- NOTE | 2024-11-16 11:11 | P.CRDCN ---
History of Present Illness Consult date: 11/16/24 Reason for Consult (text): Bradycardia History of present illness: This is a 74-year-old female patient of Dr. Helen Girard with past medical history of coronary artery disease status post CABG, prior inferior wall [place] with mild LV dysfunction, renal transplant, diabetes, hypertension, dyslipidemia. We have been asked to evaluate the patient for symptomatic bradycardia. Patient states that she was at home and she walked to the bathroom and back to her chair and when she was going back to the chair she felt very lightheaded so she decided to check her blood pressure and blood sugar. Her blood pressure was high and her heart rate was low. She states her heart rate was down to 38. She states she still and relax for a little bit and then when she got up to the bathroom the next time when she was coming back to her chair she was also feeling dizzy again. She checked her blood pressure and it was high and her heart rate was low. This was a sudden onset yesterday and had not had this previous. Patient initially presented with a heart rate of 38 and blood pressure 109/59. Her blood pressure is now 189/81 and heart rate is 78, pulse ox 98% on room air. Patient has been started on IV fluids 0.9 normal saline at 75 cc/h. There is a consult in place for nephrology. -EKG: Sinus bradycardia 40 bpm -Chest x-ray: No acute process. -Laboratory studies: CBC normal. Initial potassium 5.4 repeat 4.7. Initial BUN 44 followed by 42 and initial creatinine 2.33 followed by 1.84. Hemoglobin A1c 6.8. Magnesium 2.8. Liver function test normal. Troponin negative x 1. TSH 6.18 but has a normal free T4 of 1.5. -Home cardiac medications: Aspirin 81 mg daily, atorvastatin 40 mg at bedtime, Imdur 30 mg daily, magnesium oxide 400 mg twice daily. -Echocardiogram performed 07/09/2020 reveals EF 40 to 45%, moderate concentric left ventricular hypertrophy. Mild mitral regurgitation, mild tricuspid regurgitation, mild aortic valve sclerosis. -Cardiac catheterization performed 05/06/2020 due to abnormal stress test revealed [place] three-vessel coronary artery disease with patent diagonal graft to the right coronary artery. No significant progression of [place] circumflex coronary artery disease and does not need any other attempt at revascularization. Review Of Systems: At the time of my exam: CONSTITUTIONAL: Denies fever or chills. HEENT: Denies blurred vision, vision changes, or eye pain. Denies hemoptysis CARDIOVASCULAR: Denies chest pain. Denies orthopnea. Denies PND. Denies palpitations RESPIRATORY: Denies shortness of breath. GASTROINTESTINAL: Denies abdominal pain. Denies nausea or vomiting. HEMATOLOGIC: Denies bleeding disorders. GENITOURINARY: Denies any blood in urine. SKIN: Denies puritis. Denies rash. Physical examination: Gen: This is a 74-year-old female in no acute distress VS: reviewed HEENT: Head is atraumatic, normocephalic. Pupils equal, round. Sclerae is anicteric. NECK: Supple. No JVD. LUNGS: Clear to auscultation. No wheezes or rhonchi. No intercostal retractions. HEART: Regular rate and rhythm. Systolic ejection murmur at right sternal border. ABDOMEN: Soft No tenderness. EXTREMITIES: No pedal edema. No calf tenderness. NEUROLOGICAL: Patient is awake, alert and oriented x3. Assessment: Symptomatic bradycardia Acute kidney injury History of kidney transplant History of coronary artery disease with previous CABG Diabetes Hypertension Dyslipidemia Plan: Resume patient's home cardiac medications Nephrology is on consult Obtain repeat EKG Plan for event monitor at the time of discharge for 30 days and follow-up in the office with Dr. Helen Girard. Obtain 2-D echocardiogram and Doppler study to assess cardiac structure and function Further recommendations to follow based upon clinical course Thank you kindly for this consultation. Nurse practitioner note has been reviewed, I agree with documented findings and plan of care. Patient was seen and examined. Past Medical History Past Medical History: Coronary Artery Disease (CAD), Diabetes Mellitus, Eye Disorder, Hyperlipidemia, Hypertension, Myocardial Infarction (IA), Renal Di sease, Skin Disorder Additional Past Medical History / Comment(s): R eye glaucoma, retinal bleed and little vision, renal failure Stage 3 - R renal transplant in 2008, UTIs with sepsis, Last Myocardial Infarction Date:: 2009 History of Any Multi-Drug Resistant Organisms: None Reported Past Surgical History: Appendectomy, Cholecystectomy, Coronary Bypass/CABG, Heart Catheterization, Hernia Repair, Hysterectomy Additional Past Surgical History / Comment(s): 2009 right kidney transplant, 4 vessel CABG in 2010, umbilical hernia repair, colonoscopies, silvia cataract removed, R eye laser surgeries. Past Anesthesia/Blood Transfusion Reactions: No Reported Reaction Additional Past Anesthesia/Blood Transfusion Reaction / Comment(s): unknown Past Psychological History: No Psychological Hx Reported Additional Psychological History / Comment(s): Pt resides with her adult grand son who has autism but is high functioning. Pt does not drive, she uses the bus system and daughter's friend for transportation. She ambulates with a cane. Smoking Status: Former smoker Past Alcohol Use History: None Reported Additional Past Alcohol Use History / Comment(s): Pt started smoking as a teen and quit in 1999. Past Drug Use History: None Reported - Past Family History Brother(s) Family Medical History: Cancer Additional Family Medical History / Comment(s): one brother had kidney cancer. one brother had prostate cancer Mother Family Medical History: Coronary Artery Disease (CAD) Additional Family Medical History / Comment(s): mom had heart disease Father Family Medical History: Cancer Additional Family Medical History / Comment(s): lung and pancreatic cancer Medications and Allergies Home Medications Medication Instructions Recorded Confirmed Type Mycophenolate Sodium Dr [Myfortic] 360 mg PO BID 03/14/14 11/15/24 History Tacrolimus [Prograf] 2 mg PO DAILY 09/13/17 11/15/24 History Isosorbide Mononitrate ER [Imdur] 30 mg PO DAILY 11/26/17 11/15/24 History Insulin Glargine,Hum.rec.anlog 44 units SQ HS 04/18/20 11/15/24 History [Brooke Solnelsy] Magnesium Oxide 400 mg PO BID 04/18/20 11/15/24 History Tacrolimus [Prograf] 1 mg PO HS 04/18/20 11/15/24 History Aspirin 81 mg PO DAILY #30 chew 04/22/20 11/15/24 Rx Atorvastatin [Lipitor] 40 mg PO HS #30 tab 04/22/20 11/15/24 Rx Cranberry Fruit Extract [Cranberry] 1,500 mg PO DAILY 06/21/24 11/15/24 History INSULIN ASPART (NovoLOG) [NovoLOG See Protocol SQ AC-TID 06/21/24 11/15/24 History (formulary)] Ascorbic Acid [Vitamin C] 1,000 mg PO DAILY 11/15/24 11/15/24 History Cholecalciferol (Vitamin D3) 50 mcg PO BID 11/15/24 11/15/24 History [Vitamin D3 (50 Mcg = 2000 Iu)] Allergies Allergy/AdvReac Type Severity Reaction Status Date / Time metoclopramide HCl Allergy Unknown Verified 11/15/24 12:13 [From Reglan] adhesive tape AdvReac tears skin Verified 11/15/24 12:13 grapefruit [Grapefruit] AdvReac reaction Verified 11/15/24 12:13 with simvastatin ibuprofen AdvReac kidney Verified 11/15/24 12:13 failure/transplant ropinirole [From Requip] AdvReac LEG CRAMPS Verified 11/15/24 12:13 nupur Allergy Rash/Hives Uncoded 11/15/24 12:13 Physical Exam Vitals: Vital Signs Temp Pulse Pulse Resp BP BP Pulse Ox 11/16/24 07:00 97.6 F 78 16 189/81 98 11/16/24 02:00 97.9 F 60 18 134/71 98 11/15/24 19:59 98.2 F 76 18 138/69 99 11/15/24 17:51 191/85 11/15/24 15:10 98.6 F 70 16 197/84 98 11/15/24 15:00 97.5 F L 75 18 210/80 98 11/15/24 14:45 71 18 180/75 11/15/24 13:40 41 L 20 170/62 98 11/15/24 11:44 47 L 18 186/74 98 11/15/24 10:29 39 L 18 133/49 11/15/24 09:51 98.4 F 38 L 22 109/59 99 Intake and Output 11/15/24 11/16/24 11/16/24 22:59 06:59 14:59 Intake Total 118 Balance 118 Intake: Oral 118 Other: Voiding Method Toilet Toilet Diaper Diaper # Voids 2 5 Results 11/16/24 05:44 11/16/24 05:44 Cardiac Enzymes 11/15/24 11/15/24 11/16/24 Range/Units 10:50 10:50 05:44 AST 24 25 (14-36) U/L Troponin I 0.034 (0.000-0.034) ng/mL Coagulation 11/15/24 Range/Units 10:50 PT 10.7 (10.0-12.5) sec APTT 22.4 (22.0-30.0) sec CBC 11/15/24 11/16/24 Range/Units 10:50 05:44 WBC 6.5 5.0 (3.8-10.6) k/uL RBC 4.11 4.45 (3.80-5.40) m/uL Hgb 11.8 12.7 (11.4-16.0) gm/dL Hct 35.5 38.7 (34.0-46.0) % Plt Count 191 165 (150-450) k/uL Comprehensive Metabolic Panel 11/15/24 11/16/24 Range/Units 10:50 05:44 Sodium 139 140 (137-145) mmol/L Potassium 5.4 H 4.7 (3.5-5.1) mmol/L Chloride 102 104 (98-107) mmol/L Carbon Dioxide 29 27 (22-30) mmol/L BUN 44 H 42 H (7-17) mg/dL Creatinine 2.33 H 1.84 H (0.52-1.04) mg/dL Glucose 94 85 (74-99) mg/dL Calcium 9.3 9.0 (8.4-10.2) mg/dL AST 24 25 (14-36) U/L ALT 16 16 (4-34) U/L Alkaline Phosphatase 118 123 (38-126) U/L Total Protein 7.3 6.9 (6.3-8.2) g/dL Albumin 3.9 3.6 (3.5-5.0) g/dL Current Medications Generic Name Dose Route Start Last Admin Trade Name Lidia PRN Reason Stop Dose Admin Acetaminophen 650 mg 11/15/24 12:58 Acetaminophen Tab 325 Mg Tab PO Q6HR PRN Mild Pain or Fever > 100.5 Ascorbic Acid 1,000 mg 11/16/24 09:00 11/16/24 07:54 Ascorbic Acid 500 Mg Tab PO 1,000 mg DAILY ART Administration Aspirin 81 mg 11/16/24 09:00 11/16/24 07:54 Aspirin 81 Mg PO 81 mg DAILY ART Administration Atorvastatin Calcium 40 mg 11/15/24 21:00 11/15/24 20:54 Atorvastatin 40 Mg Tab PO 40 mg HS ART Administration Cholecalciferol 50 mcg 11/15/24 21:00 11/16/24 07:54 Cholecalciferol 25 Mcg (1000 Iu) Tablet PO 50 mcg BID ART Administration Dextrose/Water 25 ml 11/15/24 15:56 Dextrose 50% Syringe 50 Ml IVP PER PROTOCOL PRN Hypoglycemia Protocol Dextrose/Water 50 ml 11/15/24 15:56 Dextrose 50% Syringe 50 Ml IVP PER PROTOCOL PRN Hypoglycemia Protocol Hydralazine HCl 10 mg 11/15/24 15:57 11/16/24 07:52 Hydralazine Hcl 20 Mg/Ml 1 Ml Vial IVP 10 mg Q4HR PRN Administration Blood Pressure - High Sodium Chloride 1,000 mls @ 75 mls/hr 11/15/24 12:15 11/16/24 05:33 Saline 0.9% IV 75 mls/hr .[id number] ART Administration Insulin Aspart 0 unit 11/15/24 17:30 11/16/24 05:34 Insulin Aspart (Novolog) 100 Unit/Ml Vial SQ Not Given ACHS ART Protocol Insulin Detemir 44 unit 11/15/24 21:00 11/15/24 20:36 Insulin Detemir (Levemir) 100 Unit/Ml Syr SQ Not Given HS ART Isosorbide Mononitrate 30 mg 11/16/24 09:00 Isosorbide Mononitrate Er 30 Mg Tab.Er.24h PO DAILY ART Magnesium Oxide 400 mg 11/15/24 21:00 11/16/24 07:54 Magnesium Oxide 400 Mg Tab PO 400 mg BID ART Administration Mycophenolate Sodium 360 mg 11/15/24 21:00 11/16/24 07:[address] 180 Mg Tablet.Dr PO 360 mg BID ART Administration Naloxone HCl 0.2 mg 11/15/24 12:58 Naloxone 0.4 Mg/Ml 1 Ml Vial IV Q2M PRN Opioid Reversal Tacrolimus 2 mg 11/16/24 09:00 11/16/24 07:53 Tacrolimus 1 Mg Cap PO 2 mg DAILY ART Administration Tacrolimus 1 mg 11/15/24 21:00 11/15/24 20:54 Tacrolimus 1 Mg Cap PO 1 mg HS ART Administration Intake and Output 11/15/24 11/16/24 11/16/24 22:59 06:59 14:59 Intake Total 118 Balance 118 Intake: Oral 118 Other: Voiding Method Toilet Toilet Diaper Diaper # Voids 2 5 11/16/24 05:44 11/16/24 05:44
[2024-11-16 12:12] LABS: Glucose,Whole Blood 112 mg/dL (70-110)
[2024-11-16] MEDS: PANTOPRAZOLE 40 MG/10 ML VIAL IVP SCH (12:18)
[2024-11-16 13:12] LABS: Influenza A Not Detected (Not Detectd); Influenza B Not Detected (Not Detectd); RSV Not Detected (Not Detectd)
[2024-11-16] MEDS ORDERED: ONDANSETRON 4 MG/2 ML VIAL IVP PRN (14:00)
--- NOTE | 2024-11-16 16:41 | CA ---
Transthoracic Echo Report Name: Kayla Devine Age: 74 Gender: F : 1950 Exam Date: 11/16/2024 12:44 Exam Location: [place] [facility] [facility] Ht (in): 67 Wt (lb): 232 Ordering Physician: Mariya Pereira Attending/Referring Phys: [id number], [employer] Supervisor Ciera Harper RDCS Procedure CPT: Indications: LVF Cardiac Hx: Technical Quality: Fair Contrast 1: Total Dose (mL): Contrast 2: Total Dose (mL): MEASUREMENTS (Male / Female) Normal Values 2D ECHO LV Diastolic Diameter PLAX 4.2 cm 4.2 - 5.9 / 3.9 - 5.3 cm LV Systolic Diameter PLAX 2.8 cm IVS Diastolic Thickness 1.4 cm 0.6 - 1.0 / 0.6 - 0.9 cm LVPW Diastolic Thickness 1.5 cm 0.6 - 1.0 / 0.6 - 0.9 cm LV Relative Wall Thickness 0.7 LVOT Diameter 2.4 cm LV Diastolic Volume MOD BP 144.3 cm??? 67 - 155 / 56 - 104 cm??? LV Systolic Volume MOD BP 61.0 cm??? 22 - 58 / 19 - 49 cm??? LV Ejection Fraction MOD BP 57.7 % >= 55 % LV Cardiac Index MOD BP 3148.4 cm???/min???m??? LV Diastolic Volume MOD 4C 140.6 cm??? LV Systolic Volume MOD 4C 62.4 cm??? LV Ejection Fraction MOD 4C 55.6 % LV Cardiac Index MOD 4C 2956.8 cm???/min???m??? LV Diastolic Length 4C 7.4 cm LV Systolic Length 4C 6.7 cm LV Diastolic Volume MOD 2C 142.8 cm??? LV Systolic Volume MOD 2C 55.4 cm??? LV Ejection Fraction MOD 2C 61.2 % LV Cardiac Index MOD 2C 3306.9 cm???/min???m??? LV Diastolic Length 2C 7.7 cm LV Systolic Length 2C 6.1 cm LA Volume 65.2 cm??? 18 - 58 / 22 - 52 cm??? LA Volume Index 28.7 cm???/m??? 16 - 28 cm???/m??? DOPPLER AV Peak Velocity 201.9 cm/s AV Peak Gradient 16.3 mmHg AV Mean Velocity 128.2 cm/s AV Mean Gradient 7.6 mmHg AV Velocity Time Integral 38.4 cm LVOT Peak Velocity 134.3 cm/s LVOT Peak Gradient 7.2 mmHg LVOT Velocity Time Integral 24.9 cm LVOT Stroke Volume 113.4 cm??? LVOT Stroke Volume Index 52.7 ml/m??? LVOT Cardiac Index 4290.1 cm???/min???m??? AV Area Cont Eq vti 3.0 cm??? AV Area Cont Eq pk 3.0 cm??? MV Peak Velocity 140.6 cm/s MV Peak Gradient 7.9 mmHg MV Mean Velocity 102.2 cm/s MV Mean Gradient 4.4 mmHg MV Velocity Time Integral 27.9 cm MV Area PHT 4.8 cm??? Mitral E Point Velocity 74.1 cm/s Mitral A Point Velocity 95.6 cm/s Mitral E to A Ratio 0.8 MV Deceleration Time 158.5 ms TR Peak Velocity 291.5 cm/s TR Peak Gradient 34.0 mmHg Right Atrial Pressure 5.0 mmHg Pulmonary Artery Systolic Pressu 39.0 mmHg Right Ventricular Systolic Press 39.0 mmHg PV Peak Velocity 104.2 cm/s PV Peak Gradient 4.3 mmHg FINDINGS Left Ventricle Left ventricular ejection fraction is estimated at 55-60 %. Moderately increased septal wall thickness. Moderately increased posterior wall thickness. Severely increased left ventricular diastolic volume. Moderately increased left ventricular systolic volume. Basal inferior wall akinetic. Right Ventricle Right ventricular dilatation. Normal right ventricular free wall motion. Mild pulmonary hypertension. Right Atrium Normal right atrial size. Left Atrium Moderately increased left atrial volume. Mildly increased left atrial area. Mitral Valve Mitral valve thickened. Mild mitral stenosis. Trace mitral regurgitation. Aortic Valve Aortic valve not well visualized. No aortic valve stenosis or regurgitation. Tricuspid Valve Structurally normal tricuspid valve. No tricuspid stenosis. Mild tricuspid regurgitation. Pulmonic Valve Pulmonic valve not well visualized. No pulmonic stenosis. No pulmonic regurgitation. Pericardium No pericardial effusion. Aorta Aortic annulus normal. CONCLUSIONS Normal LV function Mild tricuspid regurgitation Previewed by: Dr. Mauro Girard MD (Electronically Signed) Final Date: 16 November 2024 16:40
[2024-11-16 17:21] LABS: Glucose,Whole Blood 92 mg/dL (70-110)
[2024-11-16 20:05] LABS: Glucose,Whole Blood 126 mg/dL (70-110)
[2024-11-16] MEDS: PANTOPRAZOLE 40 MG TABLET PO SCH (21:11)
[2024-11-16] MEDS: DOCUSATE 100 MG CAP PO PRN (22:50)
[2024-11-17 03:01] LABS: Glucose,Whole Blood 81 mg/dL (70-110)
[2024-11-17] MEDS: ONDANSETRON 4 MG/2 ML VIAL IVP STA (04:53)
[2024-11-17 06:06] LABS: Glucose,Whole Blood 101 mg/dL (70-110)
--- NOTE | 2024-11-17 07:37 | P.PN ---
Subjective Progress Note Date: 11/17/24 Reason for Consult (text): Bradycardia History of present illness: This is a 74-year-old female patient of Dr. Helen Girard with past medical history of coronary artery disease status post CABG, prior inferior wall [place] with mild LV dysfunction, renal transplant, diabetes, hypertension, dyslipidemia. We have been asked to evaluate the patient for symptomatic bradycardia. Patient states that she was at home and she walked to the bathroom and back to her chair and when she was going back to the chair she felt very lightheaded so she decided to check her blood pressure and blood sugar. Her blood pressure was high and her heart rate was low. She states her heart rate was down to 38. She states she still and relax for a little bit and then when she got up to the bathroom the next time when she was coming back to her chair she was also feeling dizzy again. She checked her blood pressure and it was high and her heart rate was low. This was a sudden onset yesterday and had not had this previous. Patient initially presented with a heart rate of 38 and blood pressure 109/59. Her blood pressure is now 189/81 and heart rate is 78, pulse ox 98% on room air. Patient has been started on IV fluids 0.9 normal saline at 75 cc/h. There is a consult in place for nephrology. -EKG: Sinus bradycardia 40 bpm -Chest x-ray: No acute process. -Laboratory studies: CBC normal. Initial potassium 5.4 repeat 4.7. Initial BUN 44 followed by 42 and initial creatinine 2.33 followed by 1.84. Hemoglobin A1c 6.8. Magnesium 2.8. Liver function test normal. Troponin negative x 1. TSH 6.18 but has a normal free T4 of 1.5. -Home cardiac medications: Aspirin 81 mg daily, atorvastatin 40 mg at bedtime, Imdur 30 mg daily, magnesium oxide 400 mg twice daily. -Echocardiogram performed 07/09/2020 reveals EF 40 to 45%, moderate concentric left ventricular hypertrophy. Mild mitral regurgitation, mild tricuspid regurgitation, mild aortic valve sclerosis. -Cardiac catheterization performed 05/06/2020 due to abnormal stress test revealed [place] three-vessel coronary artery disease with patent diagonal graft to the right coronary artery. No significant progression of [place] circumflex coronary artery disease and does not need any other attempt at revasc ularization. 11/17 Patient seen and examined. Blood pressure 157/67, heart rate 76, pulse ox 95% on room air. No repeat blood work is available at the time of this dictation. Echocardiogram reveals EF of 55 to 60%, mild tricuspid regurgitation. Echocardiogram results reviewed with the patient. Telemetry reviewed. Patient's heart rate has been running consistently in the 70s. Physical examination: Gen: This is a 74-year-old female in no acute distress VS: reviewed HEENT: Head is atraumatic, normocephalic. Pupils equal, round. Sclerae is anicteric. NECK: Supple. No JVD. LUNGS: Clear to auscultation. No wheezes or rhonchi. No intercostal retractions. HEART: Regular rate and rhythm. Systolic ejection murmur at right sternal border. ABDOMEN: Soft No tenderness. EXTREMITIES: No pedal edema. No calf tenderness. NEUROLOGICAL: Patient is awake, alert and oriented x3. Assessment: Symptomatic bradycardia Acute kidney injury History of kidney transplant History of coronary artery disease with previous CABG Diabetes Hypertension Dyslipidemia Plan: Continue patient's home cardiac medications Add hydralazine 25 mg 3 times daily Nephrology is on consult Event monitor for 30 days and follow-up in the office with Dr. Helen Girard in 5 weeks. Further recommendations to follow based upon clinical course Nurse practitioner note has been reviewed, I agree with documented findings and plan of care. Patient was seen and examined. Objective - Vital Signs Vital signs: Vital Signs Temp 97.7 F 11/17/24 01:50 Pulse 76 11/17/24 01:50 Resp 17 11/17/24 01:50 BP 157/67 11/17/24 01:50 Pulse Ox 95 11/17/24 01:50 FiO2 Intake & Output 11/16/24 11/17/24 11/17/24 18:59 06:59 18:59 Intake Total 118 Balance 118 Intake: Oral 118 Other: Voiding Method Toilet Toilet Diaper Diaper # Voids 5 4 # Bowel Movements 1 - Labs CBC & Chem 7: 11/16/24 05:44 11/16/24 05:44 Labs: Abnormal Lab Results - Last 24 Hours (Table) 11/16/24 11/16/24 11/16/24 Range/Units 05:44 12:10 20:03 POC Glucose (mg/dL) 112 H 126 H (70-110) mg/dL Hemoglobin A1c 6.8 H (<=6.0) %
[2024-11-17] MEDS: hydrALAZINE HCL 25 MG TAB PO SCH (08:11)
[2024-11-17 08:50] LABS: Basophils # (A) 0.08 X 10*3/uL (0.00-0.10); Basophils % (A) 1.6 %; Eosinophils % (A) 10.2 %; HCT 35.9 % (37.2-46.3); HGB 11.2 g/dL (12.0-15.0); Lymphocytes # (A) 1.15 X 10*3/uL (0.90-5.00); Lymphocytes % (A) 23.6 %; MCH 28.3 pg (27.0-32.0); MCHC 31.2 g/dL (32.0-37.0); MCV 90.7 FL (80.0-97.0); Mean Platelet Volume 11.3 FL (9.5-12.2); Monocytes # (A) 0.41 X 10*3/uL (0.20-1.00); Monocytes % (A) 8.4 %; NRBC Per 100 WBC 0 X 10*3/uL (0.00-0.01); Neutrophils # (A) 2.73 X 10*3/uL (1.80-7.70); Platelet Count 176 X 10*3/uL (140-440); RBC 3.96 X 10*6/uL (4.10-5.20); RDW 13.2 % (11.5-14.5); WBC 4.88 X 10*3/uL (4.50-10.00)
--- NOTE | 2024-11-17 09:18 | P.PN ---
Subjective Progress Note Date: 11/16/24 This is a 74-year-old female who was recently admitted with significant past medical history of coronary artery disease reporting some dizziness and generalized weakness also noted to have bradycardia with hypotension. Patient being evaluated by cardiology making adjustments to medications and ordered 2D echo which is pending. Patient to receive an event monitor on discharge and close outpatient follow-up with cardiology. Patient is reporting significant nausea and viral panel studies have been ordered and pending. Patient to be continued on clear liquids and slowly advance as tolerated will continue with supportive care with antinausea medications. Patient is afebrile with no reports of chest pain or palpitations. Patient denies shortness of breath. Review of systems: Constitutional: No reports of fatigue, fever, or chills Cardiovascular: No reports of chest pain or palpitations Respiratory: No reports of shortness of breath or cough GI: reports of nausea, no reports of vomiting, some mild abdominal discomfort : No reports of dysuria or retention Neurovascular: reports of generalized weakness, with dizzy and lightheadedness with standing All medications have been reviewed PHYSICAL EXAMINATION: GENERAL: The patient is alert and oriented x4, Well developed, well nourished. Elderly appearing, obese HEENT: Pupils are round and equally reacting to light. EOMI. no scleral icterus. No conjunctival pallor. Normocephalic, atraumatic. No pharyngeal erythema. No thyromegaly. CARDIOVASCULAR: S1 and S2 muffled PULMONARY: diminished breath sounds bilaterally with no wheezing or rhonchi noted. ABDOMEN: soft. Nontender on exam. obese. non-distended, normoactive bowel sounds. No palpable organomegaly. MUSCULOSKELETAL: No joint swelling or deformity. EXTREMITIES: No cyanosis, clubbing, or pedal edema. NEUROLOGICAL: Gross neurological examination did not reveal any focal deficits. Diffuse weakness SKIN: No rashes. Assessment: Symptomatic bradycardia with hypotension Acute renal failure with acute tubular necrosis Dizziness possibly secondary to the bradycardia and hypotension Coronary artery disease history Diabetes mellitus, type II History of CABG History of renal transplant Obesity with a BMI 36.3 GI prophylaxis DVT prophylaxis Full code Plan: Recommend to continue with current medications and management with cardiology following. 2D echo was ordered with an EF of 55-60 with moderately increased septal wall thickness with moderately increased posterior wall thickness and severely increased left ventricular diastolic volume and mild tricuspid regurgitation. Patient will need an event monitor on discharge per cardiology and outpatient follow-up Patient continues to report significant dizziness and weakness and will monitor on telemetry monitoring overnight with supportive care as patient is extremely nauseated. Will decrease diet to full liquids and slowly advance as tolerated Continue monitoring Accu-Cheks before meals and at bedtime and continue with sliding scale and adjust accordingly Viral panel including COVID, influenza, RSV are negative Nephrology is following with history of renal transplant with acute renal failure. Continue gentle hydration Due to multiple complex medical issues, overall prognosis is guarded Possible discharge planning in the next 24 hours The impression and plan of care has been dictated by Nat Fajardo, nurse practitioner as directed. Dr. Woo MD I have performed a history and examination and MDM of this patient, discussed the same with the dictator, and agree with the dictator's assessment and plan as written ,documented as a scribe. Based on total visit time, I have performed more than 50% of the visit. Any additional findings or plans will be noted. Objective - Vital Signs Vital signs: Vital Signs Temp 97.6 F 11/16/24 07:00 Pulse 78 11/16/24 07:00 Resp 16 11/16/24 07:00 BP 189/81 11/16/24 07:00 Pulse Ox 98 11/16/24 07:00 FiO2 Intake & Output 11/15/24 11/16/24 11/16/24 18:59 06:59 18:59 Intake Total 118 118 Balance 118 118 Weight 105.233 kg Intake: Oral 118 118 Other: Voiding Method Toilet Toilet Diaper Diaper # Voids 5 - Labs CBC & Chem 7: 11/17/24 04:51 11/16/24 05:44 Labs: Abnormal Lab Results - Last 24 Hours (Table) 11/15/24 11/15/24 11/16/24 Range/Units 10:50 20:23 01:58 BUN (7-17) mg/dL Creatinine (0.52-1.04) mg/dL POC Glucose (mg/dL) 157 H 117 H (70-110) mg/dL Hemoglobin A1c (<=6.0) % TSH 6.180 H (0.465-4.680) mIU/L 11/16/24 11/16/24 11/16/24 Range/Units 05:44 05:44 12:10 BUN 42 H (7-17) mg/dL Creatinine 1.84 H (0.52-1.04) mg/dL POC Glucose (mg/dL) 112 H (70-110) mg/dL Hemoglobin A1c 6.8 H (<=6.0) % TSH (0.465-4.680) mIU/L
[2024-11-17 09:41] LABS: Calcium 8.5 mg/dL (8.7-10.3); Carbon Dioxide 22.3 mmol/L (21.6-31.8); Chloride 111 mmol/L (96-109); Glucose 133 mg/dL (70-110); Magnesium 2.4 mg/dL (1.5-2.4); Potassium 4.9 mmol/L (3.5-5.5); Sodium 144 mmol/L (135-145)
--- NOTE | 2024-11-17 11:31 | P.NPCON ---
History of Present Illness - Reason for Consult acute renal failure - History of Present Illness Patient is a 74-year-old female with history of living related renal allograft in 2008 for end-stage renal disease. She has a baseline creatinine of around 1.3 to 1.4 mg/dL. Patient is admitted to the hospital with complaints of increased weakness. She was noted to have significant bradycardia with heart rate in the 30s. Systolic blood pressure 1 in the low 100 range on admission. Patient admitted to decreased intake over the last 3 to 4 days prior to admission. No history of vomiting or diarrhea.. She did report some nausea. No fever or chills. Currently maintained on IV fluids. Serum creatinine improved from 2.3 on initial admission to 1.8 today. Past Medical History Past Medical History: Coronary Artery Disease (CAD), Diabetes Mellitus, Eye Disorder, Hyperlipidemia, Hypertension, Myocardial Infarction (NC), Renal Disease, Skin Disorder Additional Past Medical History / Comment(s): R eye glaucoma, retinal bleed and little vision, renal failure Stage 3 - R renal transplant in 2008, UTIs with sepsis, Last Myocardial Infarction Date:: 2009 History of Any Multi-Drug Resistant Organisms: None Reported Past Surgical History: Appendectomy, Cholecystectomy, Coronary Bypass/CABG, Heart Catheterization, Hernia Repair, Hysterectomy Additional Past Surgical History / Comment(s): 2009 right kidney transplant, 4 vessel CABG in 2009, umbilical hernia repair, colonoscopies, silvia cataract removed, R eye laser surgeries. Past Anesthesia/Blood Transfusion Reactions: No Reported Reaction Additional Past Anesthesia/Blood Transfusion Reaction / Comment(s): unknown Past Psychological History: No Psychological Hx Reported Additional Psychological History / Comment(s): Pt resides with her adult grandson who has autism but is high functioning. Pt does not drive, she uses the bus system and daughter's friend for transportation. She ambulates with a cane. Smoking Status: Former smoker Past Alcohol Use History: None Reported Additional Past Alcohol Use History / Comment(s): Pt started smoking as a teen and quit in 1999. Past Drug Use History: None Reported - Past Family History Brother(s) Family Medical History: Cancer Additional Family Medical History / Comment(s): one brother had kidney cancer. one brother had prostate cancer Mother Family Medical History: Coronary Artery Disease (CAD) Additional Family Medical History / Comment(s): mom had heart disease Father Family Medical History: Cancer Additional Family Medical History / Comment(s): lung and pancreatic cancer Medications and Allergies Home Medications Medication Instructions Recorded Confirmed Type Mycophenolate Sodium Dr [Myfortic] 360 mg PO BID 03/14/14 11/15/24 History Tacrolimus [Prograf] 2 mg PO DAILY 09/13/17 11/15/24 History Isosorbide Mononitrate ER [Imdur] 30 mg PO DAILY 11/26/17 11/15/24 History Insulin Glargine,Hum.rec.anlog 44 units SQ HS 04/18/20 11/15/24 History [Toujeo Solostar] Magnesium Oxide 400 mg PO BID 04/18/20 11/15/24 History Tacrolimus [Prograf] 1 mg PO HS 04/18/20 11/15/24 History Aspirin 81 mg PO DAILY #30 chew 04/22/20 11/15/24 Rx Atorvastatin [Lipitor] 40 mg PO HS #30 tab 04/22/20 11/15/24 Rx Cranberry Fruit Extract [Cranberry] 1,500 mg PO DAILY 06/21/24 11/15/24 History INSULIN ASPART (NovoLOG) [NovoLOG See Protocol SQ AC-TID 06/21/24 11/15/24 History (formulary)] Ascorbic Acid [Vitamin C] 1,000 mg PO DAILY 11/15/24 11/15/24 History Cholecalciferol (Vitamin D3) 50 mcg PO BID 11/15/24 11/15/24 History [Vitamin D3 (50 Mcg = 2000 Iu)] Allergies Allergy/AdvReac Type Severity Reaction Status Date / Time metoclopramide HCl Allergy Unknown Verified 11/15/24 12:13 [From Reglan] adhesive tape AdvReac tears skin Verified 11/15/24 12:13 grapefruit [Grapefruit] AdvReac reaction Verified 11/15/24 12:13 with simvastatin ibuprofen AdvReac kidney Verified 11/15/24 12:13 failure/transplant ropinirole [From Requip] AdvReac LEG CRAMPS Verified 11/15/24 12:13 nupur Allergy Rash/Hives Uncoded 11/15/24 12:13 Physical Exam Vitals: Vital Signs Temp Pulse Resp BP BP Pulse Ox 11/17/24 07:20 97.4 F L 82 17 153/77 94 L 11/17/24 01:50 97.7 F 76 17 157/67 95 11/16/24 18:52 97.8 F 81 18 156/58 94 L 11/16/24 14:25 97.5 F L 84 17 157/67 96 Intake and Output 11/16/24 11/17/24 11/17/24 22:59 06:59 14:59 Intake Total 240 Balance 240 Intake: Oral 240 Other: Voiding Method Toilet Diaper # Voids 2 4 Patient is awake, comfortable, no acute distress. Examination of the heart S1 and S2 Examination of the lungs bilateral breath sounds are heard Abdomen is soft nontender Examination of lower extremity shows no significant edema BRICK BURNER HEAD exam grossly intact Results - Lab Results Most recent lab results Calcium 8.5 mg/dL (8.7-10.3) L 11/17/24 04:51 Magnesium 2.4 mg/dL (1.5-2.4) 11/17/24 04:51 11/17/24 04:51 11/17/24 04:51 Assessment and Plan Assessment: 1. Acute kidney injury associated with volume depletion and severe bradycardia, currently improved with IV hydration. 2. Symptomatic bradycardia being followed by cardiology. Not on beta-francine. Heart rate improved to 70s and 80s currently. 3. Status post living related renal transplant in 2008 4. History of coronary artery disease status post coronary artery bypass surgery Plan: Continue with IV fluids Follow-up as outpatient Continue with current dose of tacrolimus and CellCept. Check tacrolimus level Thank you for the consultation. We will continue to follow the patient with you during her hospitalization.
[2024-11-17 12:26] LABS: Glucose,Whole Blood 123 mg/dL (70-110)
[2024-11-17 14:38] VITALS: BP 161/71; PULSE 80; RESP 16; TEMP 97.9
--- NOTE | 2024-11-17 19:13 | P.PN ---
Subjective Patient is seen for f/u for ESME. Renal function has improved with IV hydration. No complaints today. Objective - Vital Signs Vital signs: Vital Signs Temp 97.9 F 11/17/24 14:20 Pulse 80 11/17/24 14:20 Resp 16 11/17/24 14:20 BP 161/71 11/17/24 14:20 Pulse Ox 97 11/17/24 14:20 FiO2 Intake & Output 11/17/24 11/17/24 11/18/24 06:59 18:59 06:59 Intake Total 358 Balance 358 Intake: Oral 358 Other: Voiding Method Toilet Toilet Diaper Diaper # Voids 4 - Exam Patient is awake, comfortable, no acute distress. Examination of the heart S1 and S2 Examination of the lungs bilateral breath sounds are heard Abdomen is soft nontender obese Examination of lower extremities shows chronic skin changes no significant edema. 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 - Labs CBC & Chem 7: 11/17/24 04:51 11/17/24 04:51 Labs: Abnormal Lab Results - Last 24 Hours (Table) 11/16/24 11/17/24 11/17/24 Range/Units 20:03 04:51 04:51 RBC 3.96 L (4.10-5.20) X 10*6/uL Hgb 11.2 L (12.0-15.0) g/dL Hct 35.9 L (37.2-46.3) % MCHC 31.2 L (32.0-37.0) g/dL Eosinophils # 0.50 H (0.04-0.35) X 10*3/uL Chloride 111 H (96-109) mmol/L BUN 32.0 H (9.0-27.0) mg/dL Creatinine 1.6 H (0.6-1.5) mg/dL Est GFR (CKD-EPI) 33 L (>=60) Glucose 133 H (70-110) mg/dL POC Glucose (mg/dL) 126 H (70-110) mg/dL Calcium 8.5 L (8.7-10.3) mg/dL 11/17/24 Range/Units 12:25 RBC (4.10-5.20) X 10*6/uL Hgb (12.0-15.0) g/dL Hct (37.2-46.3) % MCHC (32.0-37.0) g/dL Eosinophils # (0.04-0.35) X 10*3/uL Chloride (96-109) mmol/L BUN (9.0-27.0) mg/dL Creatinine (0.6-1.5) mg/dL Est GFR (CKD-EPI) (>=60) Glucose (70-110) mg/dL POC Glucose (mg/dL) 123 H (70-110) mg/dL Calcium (8.7-10.3) mg/dL Assessment and Plan Assessment: 1. Acute kidney injury associated with volume depletion and severe bradycardia, currently improved with IV hydration. 2. Symptomatic bradycardia being followed by cardiology. Not on beta-francine. Heart rate improved to 70s and 80s currently. 3. Status post living related renal transplant in 2008 4. History of coronary artery disease status post coronary artery bypass surgery Plan: Continue with IV fluids Follow-up as outpatient ContinueF/u as out patient.
--- NOTE | 2024-11-19 15:44 | P.DS ---
Providers Date of admission: 11/15/24 12:58 Expected date of discharge: 11/17/24 Attending physician: Emelina Berkowitz Consults: 11/15/24 12:58 Consult Physician Routine Consulting Provider: Zena Landers Consult Reason/Comments: Symptomatic bradycardia Do you want consulting provider notified?: Yes Consult Physician Routine Consulting Provider: Yoly Rosa Consult Reason/Comments: Annika, hx of renal transplant Do you want consulting provider notified?: Yes Primary care physician: Joel Wong Hospital Course: Final diagnosis Symptomatic bradycardia with hypotension Acute renal failure with acute tubular necrosis, improved after gentle hydration Dizziness possibly secondary to the bradycardia and hypotension Coronary artery disease history Diabetes mellitus, type II History of CABG History of renal transplant Obesity with a BMI 36.3 GI prophylaxis DVT prophylaxis Full code Discharge disposition Patient is being discharged in a stable condition with guarded prognosis to home. Patient will follow-up with Dr. Wong in the outpatient setting upon discharge. Patient is to continue with current medications and close outpatient follow-up with cardiology as scheduled. Total time taken is greater than 35 minutes. Hospital course This is a 74-year-old female who was recently admitted with symptomatic bradycardia and abnormal blood pressures being closely monitored and also evaluated by cardiology. Medications adjusted and has been cleared by cardiology for outpatient follow-up. Patient also instructed to follow-up with nephrology outpatient. Please refer to consultation notes for further HPI. Currently no reports of chest pain, shortness of breath, or palpitations. Patient is afebrile. No reports of nausea or vomiting and patient is tolerating diet. Patient will be discharged home today. Guarded prognosis Physical exam: Gen: This is a 74-year-old female who is awake, alert and oriented x 3, well- developed, elderly appearing, obese HEENT: Head is atraumatic, normocephalic. Pupils equal, round. Sclerae is anicteric. NECK: Supple. No JVD. No lymphadenopathy. No thyromegaly. LUNGS: Diminished breath sounds bilaterally otherwise clear to auscultation. No wheezes or rhonchi. No intercostal retractions. HEART: S1, S2 are muffled ABDOMEN: Soft. Obese. Bowel sounds are present. No masses. No tenderness. EXTREMITIES: No pedal edema. No calf tenderness. NEUROLOGICAL: Patient is awake, alert and oriented x3. Cranial nerves 2 through 12 are grossly intact. Please refer to medication reconciliation sheet for a list of medications. The impression and plan of care has been dictated by Nat Fajardo, Nurse Practitioner as directed. Dr. Woo MD I have performed a history and examination and MDM of this patient, discussed the same with the dictator, and agree with the dictator's assessment and plan as written ,documented as a scribe. Based on total visit time, I have performed more than 50% of the visit. Patient Condition at Discharge: Stable Plan - Discharge Summary Discharge Rx Participant: No New Discharge Prescriptions: New hydrALAZINE HCL [Apresoline] 25 mg PO TID #90 tab Acetaminophen Tab [Tylenol] 650 mg PO Q6HR PRN tab PRN Reason: Mild Pain Or Fever > 100.[address] [Myfortic] 360 mg PO BID Tacrolimus [Prograf] 2 mg PO DAILY Isosorbide Mononitrate ER [Imdur] 30 mg PO DAILY Magnesium Oxide 400 mg PO BID Tacrolimus [Prograf] 1 mg PO HS Insulin Glargine,Hum.rec.anlog [Toujeo Solostar] 44 units SQ HS Aspirin 81 mg PO DAILY #30 chew Atorvastatin [Lipitor] 40 mg PO HS #30 tab INSULIN ASPART (NovoLOG) [NovoLOG (formulary)] See Protocol SQ AC-TID Cholecalciferol (Vitamin D3) [Vitamin D3 (50 Mcg = 2000 Iu)] 50 mcg PO BID Cranberry Fruit Extract [Cranberry] 1,500 mg PO DAILY Ascorbic Acid [Vitamin C] 1,000 mg PO DAILY Discharge Medication List Mycophenolate Sodium Dr [Myfortic] 360 mg PO BID 03/14/14 [History] Tacrolimus [Prograf] 2 mg PO DAILY 09/13/17 [History] Isosorbide Mononitrate ER [Imdur] 30 mg PO DAILY 11/26/17 [History] Insulin Glargine,Hum.rec.anlog [Toujeo Solostar] 44 units SQ HS 04/18/20 [History] Magnesium Oxide 400 mg PO BID 04/18/20 [History] Tacrolimus [Prograf] 1 mg PO HS 04/18/20 [History] Aspirin 81 mg PO DAILY #30 chew 04/22/20 [Rx] Atorvastatin [Lipitor] 40 mg PO HS #30 tab 07/13/20 [Rx] Cranberry Fruit Extract [Cranberry] 1,500 mg PO DAILY 06/21/24 [History] INSULIN ASPART (NovoLOG) [NovoLOG (formulary)] See Protocol SQ AC-TID 06/21/24 [History] Ascorbic Acid [Vitamin C] 1,000 mg PO DAILY 11/15/24 [History] Cholecalciferol (Vitamin D3) [Vitamin D3 (50 Mcg = 2000 Iu)] 50 mcg PO BID 11/15/24 [History] Acetaminophen Tab [Tylenol] 650 mg PO Q6HR PRN tab 11/17/24 [Rx] hydrALAZINE HCL [Apresoline] 25 mg PO TID #90 tab 11/17/24 [Rx] Follow up Appointment(s)/Referral(s): Joel Wong DO [Primary Care Provider] - 1-2 days Mauro Girard MD [STAFF PHYSICIAN] - 12/14/24 2:00 pm (5 weeks ) Patient Instructions/Handouts: Bradycardia (GEN) Activity/Diet/Wound Care/Special Instructions: Activity limited until follow-up Follow-up with primary care provider on discharge Follow-up with cardiology outpatient Continue taking medications as prescribed Discharge Disposition: HOME SELF-CARE
== END 2024-11-17 15:54 | disposition home or self-care (01) ==
LOC: EC 09:37 → 6NMEDSUR 12:58 → INTOOBSV 12:58 → OBSVTOIN 12:58 → 6NMEDSUR 14:53
PROVIDERS: ADMIT Hospitalist; ATTEND Hospitalist
DX: I95.9 Hypotension, unspecified (principal); N17.0 Acute kidney failure with tubular necrosis; E66.9 Obesity, unspecified; E78.5 Hyperlipidemia, unspecified; E86.9 Volume depletion, unspecified; I25.10 Atherosclerotic heart disease of native coronary artery without angina pectoris; I25.2 Old myocardial infarction; I10 Essential (primary) hypertension; E11.9 Type 2 diabetes mellitus without complications; Z68.36 Body mass index [BMI] 36.0-36.9, adult; Z79.82 Long term (current) use of aspirin; Z79.899 Other long term (current) drug therapy; Z87.891 Personal history of nicotine dependence; Z95.1 Presence of aortocoronary bypass graft; Z94.0 Kidney transplant status; Z88.8 Allergy status to other drugs, medicaments and biological substances; Z88.6 Allergy status to analgesic agent; Z79.4 Long term (current) use of insulin
CPT/HCPCS: 96376; 96361 ×2; 96374; 96375; 99291; 36415; 93005 ×2; 93306; 93270; 84439; 80053 ×2; 80048; 84443; 83735 ×2; 84484; 85025 ×3; 85610; 85730; 81001; 83036; 87636; 71046; 76770; G0378 ×3; J0360 ×2; J7507 ×3; J7518 ×3; J2470; 96360

== ENCOUNTER 2025-03-29 21:14 | Observation (INO) | payer MEDICARE, OTHER ==
--- NOTE | 2025-03-29 21:24 | ED ---
Chest Pain HPI - General Source: patient Mode of arrival: ambulatory Limitations: no limitations <Slava Alston - Last Filed: 03/29/25 21:23> <Ina Bowen - Last Filed: 04/03/25 09:58> - General Chief Complaint: Chest Pain Stated Complaint: chest pain Time Seen by Provider: 03/29/25 21:23 - History of Present Illness Initial Comments: Quick note: 74-year-old female presenting with chief complaint of chest pain. Located on the left side of the chest. Started at 7 PM. Some radiation up into the neck. Mild shortness of breath. (AlstonSlava buckley) Is a 74-year-old female past medical history of CAD presenting for chest pain. Patient states at 7 PM she had pressure-like chest pain radiating towards her left shoulder blade that woke her up from a nap. She took a sublingual nitro with brief which briefly resolved her pain however it returned. She took a total of 4 sublingual nitroglycerin with intermittent relief of pain however pain did come back. She also took 4 baby aspirin. By the time she arrived to the ER pain has since subsided. Denies diaphoresis, nausea, vomiting, shortness of breath, fevers, chills, abdominal pain. (Ina Bowen) - Related Data Home Medications Medication Instructions Recorded Confirmed Tacrolimus [Prograf] 2 mg PO DAILY 09/13/17 04/02/25 Isosorbide Mononitrate ER [Imdur] 30 mg PO DAILY 11/26/17 04/02/25 Insulin Glargine,Hum.rec.anlog 44 units SQ HS 04/18/20 04/02/25 [Brooke Ly] Magnesium Oxide 400 mg PO DAILY 04/18/20 04/02/25 Tacrolimus [Prograf] 1 mg PO HS 04/18/20 04/02/25 Cranberry Fruit Extract [Cranberry] 1,500 mg PO DAILY 06/21/24 04/02/25 INSULIN ASPART (NovoLOG) [NovoLOG See Protocol SQ AC-TID 06/21/24 04/02/25 (formulary)] Ascorbic Acid [Vitamin C] 1,000 mg PO DAILY 11/15/24 04/02/25 Cholecalciferol (Vitamin D3) 50 mcg PO BID 11/15/24 04/02/25 [Vitamin D3 (50 Mcg = 2000 Iu)] Dapagliflozin Propanediol [Farxiga] 10 mg PO DAILY 03/30/25 04/02/25 Mycophenolate Sodium [Mycophenolic 360 mg PO BID 03/30/25 04/02/25 Acid] Previous Rx's Medication Instructions Recorded Aspirin 81 mg PO DAILY #30 chew 04/22/20 Atorvastatin [Lipitor] 40 mg PO HS #30 tab 04/22/20 hydrALAZINE HCL [Apresoline] 25 mg PO TID #90 tab 11/17/24 Ranolazine [Ranexa] 500 mg PO Q12HR 30 Days #60 tab 04/01/25 amLODIPine [Norvasc] 5 mg PO DAILY 30 Days #30 tab 04/01/25 hydrALAZINE HCL [Apresoline] 50 mg PO TID 30 Days #90 tab 04/01/25 Allergies Allergy/AdvReac Type Severity Reaction Status Date / Time metoclopramide HCl Allergy Unknown Verified 04/02/25 12:27 [From Reglan] adhesive tape AdvReac tears skin Verified 04/02/25 12:27 grapefruit [Grapefruit] AdvReac reaction Verified 04/02/25 12:27 with simvastatin ibuprofen AdvReac kidney Verified 04/02/25 12:27 failure/transplant ropinirole [From Requip] AdvReac LEG CRAMPS Verified 04/02/25 12:27 nupur Allergy Rash/Hives Uncoded 04/01/25 20:59 Review of Systems ROS Other: All systems not noted in ROS Statement are negative. <Slava Alston - Last Filed: 03/29/25 21:23> ROS Other: All systems not noted in ROS Statement are negative. <Ian Bowen - Last Filed: 04/03/25 09:58> ROS Statement: Those systems with pertinent positive or pertinent negative responses have been documented in the HPI. EKG Findings - EKG Comments: EKG Findings:: Sinus rhythm, rate 77 bpm, intervals within except limits, left axis deviation, right bundle lori block, no significant new ST elevations from prior EKGThis was compared to EKG performed on 11/16/2024, T wave inversions in lead aVL are more prominent than previous, T waves are more prominent in lead V2 is well compared to prior no longer ST depression in lead V5 on today's EKG,, new right bundle branch block <Ina Bowen - Last Filed: 04/03/25 09:58> Past Medical History Past Medical History: Coronary Artery Disease (CAD), Diabetes Mellitus, Eye Disorder, Hyperlipidemia, Hypertension, Myocardial Infarction (AR), Renal Disease, Skin Disorder Additional Past Medical History / Comment(s): R eye glaucoma, retinal bleed and little vision, renal failure Stage 3 - R renal transplant in 2008, UTIs with sepsis, Last Myocardial Infarction Date:: 2009 History of Any Multi-Drug Resistant Organisms: None Reported Past Surgical History: Appendectomy, Cholecystectomy, Coronary Bypass/CABG, Heart Catheterization, Hernia Repair, Hysterectomy Additional Past Surgical History / Comment(s): 2009 right kidney transplant, 4 vessel CABG in 2009, umbilical hernia repair, colonoscopies, silvia cataract removed, R eye laser surgeries. Past Anesthesia/Blood Transfusion Reactions: No Reported Reaction Additional Past Anesthesia/Blood Transfusion Reaction / Comment(s): unknown Past Psychological History: No Psychological Hx Reported Smoking Status: Former smoker Past Alcohol Use History: None Reported Past Drug Use History: None Reported - Past Family History Brother(s) Family Medical History: Cancer Additional Family Medical History / Comment(s): one brother had kidney cancer. one brother had prostate cancer Mother Family Medical History: Coronary Artery Disease (CAD) Additional Family Medical History / Comment(s): mom had heart disease Father Family Medical History: Cancer Additional Family Medical History / Comment(s): lung and pancreatic cancer <Slava Alston - Last Filed: 03/29/25 21:23> General Exam Limitations: no limitations <Slava Alston - Last Filed: 03/29/25 21:23> <Ina Bowen - Last Filed: 04/03/25 09:58> - General Exam Comments Initial Comments: Visual Physical Exam Vital signs reviewed General: Well-appearing, nontoxic, no acute distress. Head: Normocephalic, atraumatic Eyes: PERRLA, EOMI ENT: Airway patent Chest: Nonlabored breathing Skin: No visual rash, normal skin tone Neuro: Alert and oriented 3 Musculoskeletal: No gross abnormalities (Slava Alston) PE: CONSTITUTIONAL: No apparent distress, well appearing SKIN: Warm, dry, no jaundice, hives or petechiae EYES: Pupils are equally round, extraocular movements intact without nystagmus, clear conjunctiva, non-icteric sclera HENT: Normocephalic, atraumatic, moist mucus membranes, oropharynx clear without exudates NECK: , Full range of motion, normal appearance PULMONARY: Clear to auscultation without wheezes, rhonchi, or rales, normal excursion, no accessory muscle use and no stridor CARDIOVASCULAR: Regular rate, rhythm, normal S1 and S2. No appreciated murmurs, rubs or gallops. Strong radial pulses with intact distal perfusion. No lower extremity edema GASTROINTESTINAL: Soft, active bowel sounds throughout, non-tender, non- distended, no palpable masses, no rebound or guarding. No hepatosplenomegaly GENITOURINARY: MUSCULOSKELETAL: Extremities have no gross deformity, no edema, redness, or swelling. No calf swelling NEUROLOGIC:_a/o x 3, GCS 15, normal mentation and speech. Moves all extremities x 4 without motor or sensory deficit PSYCHIATRIC:_normal mood and affect, thought process is clear and linear (Ina Bowen) Course Vital Signs 03/29/25 03/30/25 03/30/25 21:17 00:21 01:00 Temperature 98.2 F 98.1 F Pulse Rate 82 80 85 Respiratory 20 18 18 Rate Blood Pressure 96/68 190/94 178/82 O2 Sat by Pulse 97 97 96 Oximetry 03/30/25 03/30/25 03/30/25 09:00 12:00 12:28 Temperature Pulse Rate 73 76 Respiratory 17 18 Rate Blood Pressure 187/90 140/67 147/67 O2 Sat by Pulse 97 97 Oximetry Chest Pain MDM <Slava Alston - Last Filed: 03/29/25 21:23> <Ina Bowen - Last Filed: 04/03/25 09:58> - MDM I performed the quick note portion of this visit, electronically signed Slava Alston PA-C (Slava Alston) Was pt. sent in by a medical professional or institution (ASTON Luque, INFORMATION CLERK [employer], urgent care, hospital, or shelter...) When possible be specific @ -No Did you speak to anyone other than the patient for history (EMS, parent, family, police, friend...)? What history was obtained from this source @ -No Did you review nursing and triage notes (agree or disagree)? Why? @ -I reviewed nursing and triage notes-of note triage note states that patient had no relief of pain with nitro, she did endorse to me intermittent relief of pain with sublingual nitro, she currently is chest pain-free Were old charts reviewed (outside hosp., previous admission, EMS record, old EKG, old radiological studies, urgent care reports/EKG's, shelter records)? Report findings @ -Medical records reviewed-Reviewed discharge summary from visit on 11/24/2024, she had presented at that time for concerns for "an abnormal rhythm" per review of discharge summary, she was noted to have pauses on her site monitor, Differential Diagnosis (chest pain, altered mental status, abdominal pain women, abdominal pain men, vaginal bleeding, weakness, fever, dyspnea, syncope, headache, dizziness, GI bleed, back pain, seizure, CVA, palpatations, mental health, musculoskeletal)? @Differential Chest Pain: Stable Angina, Unstable Angina, STEMI, NSTEMI Aortic Dissection, pericarditis, pleurisy, chostochondirits, Pneumothorax, Musculoskeletal, Esophageal Spasm GERD, Cholecystitis, Pancreatitis, Zoster, this is not meant to be an all- inclusive list. EKG interpreted by me (3pts min.). @ -As above X-rays interpreted by me (1pt min.). @Personally reviewed chest x-ray, I see no evidence of consolidations, card iomegaly or pleural effusions CT interpreted by me (1pt min.). @ -None done U/S interpreted by me (1pt. min.). @ -None done What testing was considered but not performed or refused? (CT, X-rays, U/S, labs)? Why? @ -None What meds were considered but not given or refused? Why? @ -Heparin infusion was considered however patient's troponin is currently within normal limits, no signs of STEMI on EKG, she is currently chest pain-free Did you discuss the management of the patient with other professionals (professionals i.e. , PA, INFORMATION CLERK [employer], lab, RT, psych nurse, bilingual social worker, trial lawyer, teacher, sales officer, residential case manager)? Give summary @ -No Was smoking cessation discussed for >3mins.? @ -No Was critical care preformed (if so, how long)? @ -No Were there social determinants of health that impacted care today? How? (Homelessness, low income, unemployed, alcoholism, drug addiction, transportation, low edu. Level, literacy, decrease access to med. care, [facility], rehab)? @ -No Was there de-escalation of care discussed even if they declined (Discuss DNR or withdrawal of care, Hospice)? @ -No What co-morbidities impacted this encounter? (DM, HTN, Smoking, COPD, CAD, Cancer, CVA, ARF, Chemo, Hep., AIDS, mental health diagnosis, sleep apnea, morbid obesity)? @CAD Was patient admitted / discharged? Hospital course, mention meds given and route, prescriptions, significant lab abnormalities, going to OR and other pertinent info. @Admission -this is a pleasant 74-year-old female presenting today for left- sided chest pressure intermittently that radiated to her back that woke her up from sleep today. Is now chest pain-free on my evaluation. Of note patient and is initially seen and evaluated in the ER waiting room due to ED overflow capacity. Patient gave permission for me to begin my assessment in the waiting room. Physical exam is overall benign. Discussed with patient anticipated admission given concerns for unstable angina. Patient agreeable with plan of care. Labs are significant for troponin of 0.026, will obtain repeat, creatinine 1.72, slightly elevated from prior, was 1.5 on 11/30/2024. Chest x-ray shows chronic changes. Plan for admission for unstable angina. Spoke with TIMUR Johns who kindly accepted pt for admission. Undiagnosed new problem with uncertain prognosis? @ -No Drug Therapy requiring intensive monitoring for toxicity (Heparin, Nitro, Insulin, Cardizem)? @ -No Were any procedures done? @ -No Diagnosis/symptom? @Unstable angina Acute, or Chronic, or Acute on Chronic? Acute Uncomplicated (without systemic symptoms) or Complicated (systemic symptoms)? Complicated Side effects of treatment? @ -No Exacerbation, Progression, or Severe Exacerbation? @ -No Poses a threat to life or bodily function? How? (Chest pain, [place], AR, pneumonia, PE, COPD, DKA, ARF, appy, cholecystitis, CVA, Diverticulitis, Homicidal, Suicidal, threat to staff... and all critical care pts) Yes (,Ina) Disposition <Slava Alston - Last Filed: 03/29/25 21:23> <Ina Bowen - Last Filed: 04/03/25 09:58> Clinical Impression: Unstable angina Disposition: ADMITTED IP TO THIS HOSP Condition: Stable
--- NOTE | 2025-03-29 21:48 | XR ---
EXAMINATION TYPE: XR chest 2V DATE OF EXAM: 03/29/2025 9:39 PM COMPARISON: Multiple radiographs, with the most recent on 11/24/2024 TECHNIQUE: XR chest 2V Frontal and lateral views of the chest. CLINICAL INDICATION:Female, 74 years old with history of Chest Pain; FINDINGS: Lungs/Pleura: There is no evidence of pleural effusion, focal consolidation, or pneumothorax. Pulmonary vascularity: Unremarkable. Heart/mediastinum: Cardiomediastinal silhouette is prominent in size. Atherosclerotic calcifications are seen in the aorta. Postsurgical changes redemonstrated. Musculoskeletal: No acute osseous pathology. Midline sternotomy wires are noted and stable. IMPRESSION: Chronic changes without acute pulmonary process. [facility], , 03/29/2025 9:46 PM
[2025-03-30 00:52] LABS: Basophils # (A) 0.08 10*3/uL (0.00-0.10); Basophils % (A) 1.3 %; Eosinophils # (A) 0.49 10*3/uL (0.04-0.35); Eosinophils % (A) 7.8 %; HCT 37.6 % (37.2-46.3); HGB 12.1 g/dL (12.0-15.0); Lymphocytes # (A) 1.41 10*3/uL (0.90-5.00); Lymphocytes % (A) 22.5 %; MCH 28.3 pg (27.0-32.0); MCHC 32.2 g/dL (32.0-37.0); MCV 87.9 fL (80.0-97.0); Mean Platelet Volume 11.4 fL (9.5-12.2); Monocytes # (A) 0.46 10*3/uL (0.20-1.00); Monocytes % (A) 7.3 %; Neutrophils # (A) 3.83 10*3/uL (1.80-7.70); Neutrophils % (A) 60.9 %; Platelet Count 164 10*3/uL (140-440); RBC 4.28 10*6/uL (4.10-5.20); RDW 13.2 % (11.5-14.5); WBC 6.28 10*3/uL (4.50-10.00)
[2025-03-30 01:05] LABS: ALT 14 U/L (4-34); AST 29 U/L (14-36); African American GFR (CKD) 33 (>60 ml/min/1.73 sqM); Alkaline Phosphatase 96 U/L (38-126); Anion Gap 9 mmol/L; Blood Urea Nitrogen 42 mg/dL (7-17); Calcium 9.6 mg/dL (8.4-10.2); Carbon Dioxide 28 mmol/L (22-30); Chloride 102 mmol/L (98-107); Glucose 142 mg/dL (74-99); Magnesium 2.3 mg/dL (1.6-2.3); Non-African American GFR(CKD) 29 (>60 ml/min/1.73 sqM); Sodium 139 mmol/L (137-145); Total Bilirubin 0.7 mg/dL (0.2-1.3); Total Protein 7.6 g/dL (6.3-8.2)
[2025-03-30 01:15] LABS: Potassium 4.8 mmol/L (3.5-5.1)
[2025-03-30 01:29] LABS: INR 0.9 (<1.2); Prothrombin Time 10.3 sec (10.0-12.5)
[2025-03-30 01:34] LABS: Partial Thromboplastin Time 18.9 sec (22.0-30.0)
[2025-03-30] MEDS ORDERED: NITROGLYCERIN SL TABS 0.4 MG TAB SUBLINGUAL PRN (03:40)
[2025-03-30] MEDS ORDERED: MORPHINE SULFATE 2 MG/ML SYRINGE IVP PRN (03:40)
[2025-03-30] MEDS ORDERED: ACETAMINOPHEN TAB 325 MG TAB PO PRN (03:40)
[2025-03-30 07:01] LABS: Appearance,Urine Clear (Clear); Bacteria,Urine Rare /hpf; Bilirubin,Urine Negative (Negative); Blood,Urine Negative (Negative); Color,Urine Light Yellow; Glucose,Urine (UA) Negative (Negative); Hyaline Casts,Urine 1 /lpf (0-2); Ketones,Urine Negative (Negative); Leukocyte Esterase,Urine Moderate (Negative); Nitrite,Urine Negative (Negative); PH, Urine 5.5 (5.0-8.0); Protein,Urine Trace (Negative); RBC,Urine 1 /hpf (0-5); Specific Gravity,Urine 1.017 (1.001-1.035); Squamous Epithelial Cell,Urine 4 /hpf (0-4); Urobilinogen,Urine <2.0 mg/dL (<2.0); WBC,Urine 31 /hpf (0-5)
[2025-03-30] MEDS ORDERED: HEPARIN SODIUM,PORCINE 5,000 UNIT/ML 1 ML VIAL SQ SCH (08:00)
[2025-03-30] MEDS ORDERED: ISOSORBIDE MONONITRATE ER 30 MG TAB.ER.24H PO SCH (09:00)
[2025-03-30] MEDS ORDERED: ATORVASTATIN 40 MG TAB PO SCH (09:00)
[2025-03-30 09:06] LABS: Glucose,Whole Blood 77 mg/dL (70-110)
[2025-03-30] MEDS: hydrALAZINE HCL 25 MG TAB PO SCH (09:14)
[2025-03-30] MEDS: ISOSORBIDE MONONITRATE ER 60 MG TAB.ER.24H PO SCH (09:14)
[2025-03-30] MEDS: ASPIRIN 81 MG PO SCH (09:14)
[2025-03-30] MEDS: RANOLAZINE 500 MG TAB.ER.12H PO SCH (09:14)
[2025-03-30] MEDS: HEPARIN SODIUM,PORCINE 5,000 UNIT/ML 1 ML VIAL SQ SCH (09:16)
[2025-03-30] MEDS: DAPAGLIFLOZIN PROPANEDIOL 10 MG TABLET PO SCH (09:22)
--- NOTE | 2025-03-30 09:57 | P.CRDCN ---
History of Present Illness History of present illness: HISTORY OF PRESENT ILLNESS: This is a 74-year-old female with a past medical history significant for coronary artery disease with previous CABG, bradycardia, hypertension, hyperlipidemia, diabetes, and obesity. Patient follows in the office with Dr. Girard. We have been asked to see the patient in consultation for chest pain. Patient examined at the bedside in the emergency room. Patient states yesterday she was taking a nap when she was woke up from her sleep with chest discomfort. She states the pain was in the middle of her chest. She denies any radiation of the pain. She states the pain felt like a pressure type sensation. She denies any chest pain or pressure at this morning. She states she is feeling back to her baseline. It is noted that the patient was hospitalized earlier this year and was given an event monitor revealing bradycardia with pauses of [address] Girard recommended that patient undergo permanent pacemaker implantation and this was discussed at her follow-up appointment in January. However patient has declined to undergo pacemaker implantation. DIAGNOSTICS: - EKG reveals sinus mechanism with IVCD. - Chest xray chronic changes without acute pulmonary process. - Laboratory data: WBC 6.28. Hemoglobin 12.1. Platelet count 164. Sodium 139. Potassium 4.8. BUN 42. Creatinine 1.72. Troponin 0.026. 0.032. 0.038 - Current home cardiac medications include aspirin 81 mg daily, hydralazine 25 mg 3 times daily, Farxiga 10 mg daily, Imdur 30 mg daily, Lipitor 40 mg at night. - Most recent echocardiogram obtained in November 2024 55 to 60%, basal inferior wall akinetic, trace MR, mild TR - Cardiac catheterization history: February 2020 revealing [place] three-vessel coronary artery disease with patent SVG to RCA. No significant progression of [place] circumflex coronary artery. Medical management was recommended. REVIEW OF SYSTEMS: At the time of my exam: CONSTITUTIONAL: Denies fever or chills. HEENT: Denies blurred vision, vision changes, or eye pain. Denies hemoptysis CARDIOVASCULAR: Denies chest pain. Denies orthopnea. Denies PND. Denies palpitations RESPIRATORY: Denies shortness of breath. GASTROINTESTINAL: Denies abdominal pain. Denies nausea or vomiting. HEMATOLOGIC: Denies bleeding disorders. GENITOURINARY: Denies any blood in urine. SKIN: Denies pruitis. Denies rash. PHYSICAL EXAM: VITAL SIGNS: Reviewed. GENERAL: Well-developed in no acute distress. HEENT: Head is normocephalic. Pupils are equal, round. Sclerae anicteric. Mucous membranes of the mouth are moist. Neck supple. No JVD or thyromegaly LUNGS: Respirations even and unlabored. Lungs essentially clear to auscultation bilaterally. HEART: Regular rate and rhythm. S1 and S2 heard. ABDOMEN: Soft. Nondistended. Nontender. EXTREMITIES: Normal range of motion. No clubbing or cyanosis. Peripheral pulses intact. No lower extremity edema NEUROLOGIC: Awake and alert. Oriented x 3. ASSESSMENT: Chest pain Minimally elevated troponin, possible small NSTEMI versus elevation due to poor renal clearance, unable to determine at this time Coronary artery disease with previous CABG Chronic kidney disease History of renal transplant History of bradycardia, declining to undergo pacemaker implantation Hypertension Hyperlipidemia Diabetes Obesity: BMI 37.1 PLAN: Obtain 2D echo to assess cardiac structure and function Resume home cardiac medications Increase Imdur to 60 mg daily Add Ranexa 500 mg twice a day Avoid any AV chucky blocking agents due to history of bradycardia with pauses Dr. Cardona reviewed patient's previous cardiac cath films. Patient with diffuse disease not optimal for PCI. No plans for cardiac catheterization at this time and will continue with medical management Continue to monitor patient for additional 24 hours Possible discharge home tomorrow if patient remains stable Nurse practitioner note has been reviewed by physician. Signing provider agrees with the documented findings, assessment, and plan of care documented by BANKING AND FINANCE INSTRUCTOR as a scribe. Past Medical History Past Medical History: Coronary Artery Disease (CAD), Diabetes Mellitus, Eye Disorder, Hyperlipidemia, Hypertension, Myocardial Infarction ([place]), Renal Disease, Skin Disorder Additional Past Medical History / Comment(s): R eye glaucoma, retinal bleed and little vision, renal failure Stage 3 - R renal transplant in 2008, UTIs with sepsis, Last Myocardial Infarction Date:: 2009 History of Any Multi-Drug Resistant Organisms: None Reported Past Surgical History: Appendectomy, Cholecystectomy, Coronary Bypass/CABG, He art Catheterization, Hernia Repair, Hysterectomy Additional Past Surgical History / Comment(s): 2009 right kidney transplant, 4 vessel CABG in 2010, umbilical hernia repair, colonoscopies, silvia cataract removed, R eye laser surgeries. Past Anesthesia/Blood Transfusion Reactions: No Reported Reaction Additional Past Anesthesia/Blood Transfusion Reaction / Comment(s): unknown Past Psychological History: No Psychological Hx Reported Smoking Status: Former smoker Past Alcohol Use History: None Reported Past Drug Use History: None Reported - Past Family History Brother(s) Family Medical History: Cancer Additional Family Medical History / Comment(s): one brother had kidney cancer. one brother had prostate cancer Mother Family Medical History: Coronary Artery Disease (CAD) Additional Family Medical History / Comment(s): mom had heart disease Father Family Medical History: Cancer Additional Family Medical History / Comment(s): lung and pancreatic cancer Medications and Allergies Home Medications Medication Instructions Recorded Confirmed Type Tacrolimus [Prograf] 2 mg PO DAILY 09/13/17 03/30/25 History Isosorbide Mononitrate ER [Imdur] 30 mg PO DAILY 11/26/17 03/30/25 History Insulin Glargine,Hum.rec.anlog 44 units SQ HS 04/18/20 03/30/25 History [Toujeo Solostar] Magnesium Oxide 400 mg PO DAILY 04/18/20 03/30/25 History Tacrolimus [Prograf] 1 mg PO HS 04/18/20 03/30/25 History Aspirin 81 mg PO DAILY #30 chew 04/22/20 03/30/25 Rx Atorvastatin [Lipitor] 40 mg PO HS #30 tab 04/22/20 03/30/25 Rx Cranberry Fruit Extract [Cranberry] 1,500 mg PO DAILY 06/21/24 03/30/25 History INSULIN ASPART (NovoLOG) [NovoLOG See Protocol SQ AC-TID 06/21/24 03/30/25 History (formulary)] Ascorbic Acid [Vitamin C] 1,000 mg PO DAILY 11/15/24 03/30/25 History Cholecalciferol (Vitamin D3) 50 mcg PO BID 11/15/24 03/30/25 History [Vitamin D3 (50 Mcg = 2000 Iu)] hydrALAZINE HCL [Apresoline] 25 mg PO TID #90 tab 11/17/24 03/30/25 Rx Dapagliflozin Propanediol [Farxiga] 10 mg PO DAILY 03/30/25 03/30/25 History Mycophenolate Sodium [Mycophenolic 360 mg PO BID 03/30/25 03/30/25 History Acid] Allergies Allergy/AdvReac Type Severity Reaction Status Date / Time metoclopramide HCl Allergy Unknown Verified 03/30/25 07:54 [From Reglan] adhesive tape AdvReac tears skin Verified 03/30/25 07:54 grapefruit [Grapefruit] AdvReac reaction Verified 03/30/25 07:54 with simvastatin ibuprofen AdvReac kidney Verified 03/30/25 07:54 failure/transplant ropinirole [From Requip] AdvReac LEG CRAMPS Verified 03/30/25 07:54 nupur Allergy Rash/Hives Uncoded 03/29/25 21:21 Physical Exam Vitals: Vital Signs Temp Pulse Resp BP Pulse Ox 03/30/25 01:00 85 18 178/82 96 03/30/25 00:21 98.1 F 80 18 190/94 97 03/29/25 21:17 98.2 F 82 20 96/68 97 Intake and Output 03/29/25 03/30/25 03/30/25 22:59 06:59 14:59 Other: Weight 104.326 kg Results 03/29/25 23:55 03/29/25 23:55 Cardiac Enzymes 03/29/25 03/29/25 03/30/25 Range/Units 23:55 23:55 04:17 AST 29 (14-36) U/L Troponin I 0.026 0.032 (0.000-0.034) ng/mL Coagulation 03/29/25 Range/Units 23:55 PT 10.3 (10.0-12.5) sec APTT 18.9 L (22.0-30.0) sec CBC 03/29/25 Range/Units 23:55 WBC 6.28 (4.50-10.00) 10*3/uL RBC 4.28 (4.10-5.20) 10*6/uL Hgb 12.1 (12.0-15.0) g/dL Hct 37.6 (37.2-46.3) % Plt Count 164 (140-440) 10*3/uL Comprehensive Metabolic Panel 03/29/25 Range/Units 23:55 Sodium 139 (137-145) mmol/L Potassium 4.8 (3.5-5.1) mmol/L Chloride 102 (98-107) mmol/L Carbon Dioxide 28 (22-30) mmol/L BUN 42 H (7-17) mg/dL Creatinine 1.72 H (0.52-1.04) mg/dL Glucose 142 H (74-99) mg/dL Calcium 9.6 (8.4-10.2) mg/dL AST 29 (14-36) U/L ALT 14 (4-34) U/L Alkaline Phosphatase 96 (38-126) U/L Total Protein 7.6 (6.3-8.2) g/dL Albumin 4.0 (3.5-5.0) g/dL Current Medications Generic Name Dose Route Start Last Admin Trade Name Freq PRN Reason Stop Dose Admin Acetaminophen 650 mg 03/30/25 03:40 Acetaminophen Tab 325 Mg Tab PO Q4HR PRN Pain Atorvastatin Calcium 40 mg 03/30/25 09:00 Atorvastatin 40 Mg Tab PO DAILY [facility] Heparin Sodium (Porcine) 5,000 unit 03/30/25 09:00 Heparin Sodium,Porcine 5,000 Unit/Ml 1 Ml Vial SQ Q12HR ART Morphine Sulfate 2 mg 03/30/25 03:40 Morphine Sulfate 2 Mg/Ml Syringe IVP 03/30/25 12:00 Q5M PRN Chest Pain Nitroglycerin 0.4 mg 03/30/25 03:40 Nitroglycerin Sl Tabs 0.4 Mg Tab SUBLINGUAL Q5M PRN Chest Pain Intake and Output 03/29/25 03/30/25 03/30/25 22:59 06:59 14:59 Other: Weight 104.326 kg 03/29/25 23:55 03/29/25 23:55
[2025-03-30] MEDS ORDERED: DEXTROSE 50% SYRINGE 50 ML IVP PRN ×2 (11:16)
[2025-03-30 12:01] LABS: Glucose,Whole Blood 148 mg/dL (70-110)
[2025-03-30] MEDS: INSULIN LISPRO (HumaLOG) 100 UNIT/ML 10 mL VL SQ SCH (12:03)
[2025-03-30] MEDS: TACROLIMUS 1 MG CAP PO SCH ×2 (12:23→20:48)
[2025-03-30] MEDS: CHOLECALCIFEROL 25 MCG (1000 IU) TABLET PO SCH (12:23)
[2025-03-30] MEDS: ASCORBIC ACID 500 MG TAB PO SCH (12:23)
[2025-03-30] MEDS: MAGNESIUM OXIDE 400 MG TAB PO SCH (12:23)
[2025-03-30 17:39] LABS: Glucose,Whole Blood 120 mg/dL (70-110)
--- NOTE | 2025-03-30 18:59 | CA ---
Transthoracic Echo Report Name: Kayla Devine Age: 74 Gender: F : 1950 Exam Date: 03/30/2025 14:58 Exam Location: [place] [facility] Ht (in): 66 Wt (lb): 230 Ordering Physician: Juliann Mendez Attending/Referring Phys: [id number], Andrea Cath Lab Manager Justyna Quintanilla, VANNA Procedure CPT: Indications: CP, elevated trops Cardiac Hx: Technical Quality: Fair Contrast 1: Definity Total Dose (mL): 2 Contrast 2: Total Dose (mL): MEASUREMENTS (Male / Female) Normal Values 2D ECHO LV Diastolic Diameter PLAX 4.1 cm 4.2 - 5.9 / 3.9 - 5.3 cm LV Systolic Diameter PLAX 3.4 cm IVS Diastolic Thickness 1.8 cm 0.6 - 1.0 / 0.6 - 0.9 cm LVPW Diastolic Thickness 1.6 cm 0.6 - 1.0 / 0.6 - 0.9 cm LV Relative Wall Thickness 0.8 RV Internal Dim ED PLAX 2.5 cm LA Systolic Diameter LX 4.6 cm 3.0 - 4.0 / 2.7 - 3.8 cm M-MODE Aortic Root Diameter MM 3.4 cm LA Systolic Diameter MM 4.1 cm LA Ao Ratio MM 1.2 AV Cusp Separation MM 1.5 cm FINDINGS Left Ventricle Left ventricular ejection fraction is estimated at 30-35%. Severely increased septal wall thickness. Moderately increased posterior wall thickness. Left ventricular cavity size normal. No obvious regional wall motion abnormalities. Right Ventricle Normal right ventricular size and function. Right Atrium Left Atrium Moderately increased left atrial diameter. Mitral Valve Aortic Valve Tricuspid Valve Pulmonic Valve Pericardium No pericardial or pleural effusion. Aorta Normal size aortic root and proximal ascending aorta. CONCLUSIONS Technically difficult study for interpretation Impaired LV function with EF between 30 to 35% Previewed by: Dr. Jose Cardona MD (Electronically Signed) Final Date: 30 March 2025 18:59
[2025-03-30] MEDS: CRANBERRY FRUIT EXTRACT 500 MG PO SCH (19:39)
[2025-03-30 20:23] LABS: Glucose,Whole Blood 178 mg/dL (70-110)
[2025-03-30] MEDS: MYCOPHENOLATE SODIUM DR 180 MG TABLET.DR PO SCH (20:47)
[2025-03-30] MEDS: ATORVASTATIN 40 MG TAB PO SCH (20:48)
[2025-03-30] MEDS: INSULIN GLARGINE (LANTUS) 100 UNIT/ML SYR SQ SCH (20:50)
[2025-03-31 06:00] LABS: Glucose,Whole Blood 92 mg/dL (70-110)
[2025-03-31 10:21] LABS: LDL Cholesterol,Calculated 34.3 mg/dL (0.0-131.0); VLDL Calculation 19.36 mg/dL (5.00-40.00)
[2025-03-31 12:08] LABS: Glucose,Whole Blood 139 mg/dL (70-110)
--- NOTE | 2025-03-31 12:40 | P.PN ---
Subjective Progress Note Date: 03/31/25 HISTORY OF PRESENT ILLNESS: This is a 74-year-old female with a past medical history significant for co ronary artery disease with previous CABG, bradycardia, hypertension, hyperlipidemia, diabetes, and obesity. Patient follows in the office with Dr. Girard. We have been asked to see the patient in consultation for chest pain. Patient examined at the bedside in the emergency room. Patient states yesterday she was taking a nap when she was woke up from her sleep with chest discomfort. She states the pain was in the middle of her chest. She denies any radiation of the pain. She states the pain felt like a pressure type sensation. She denies any chest pain or pressure at this morning. She states she is feeling back to her baseline. It is noted that the patient was hospitalized earlier this year and was given an event monitor revealing bradycardia with pauses of [address] Girard recommended that patient undergo permanent pacemaker implantation and this was discussed at her follow-up appointment in January. However patient has declined to undergo pacemaker implantation. DIAGNOSTICS: - EKG reveals sinus mechanism with IVCD. - Chest xray chronic changes without acute pulmonary process. - Laboratory data: WBC 6.28. Hemoglobin 12.1. Platelet count 164. Sodium 139. Potassium 4.8. BUN 42. Creatinine 1.72. Troponin 0.026. 0.032. 0.038 - Current home cardiac medications include aspirin 81 mg daily, hydralazine 25 mg 3 times daily, Farxiga 10 mg daily, Imdur 30 mg daily, Lipitor 40 mg at night. - Most recent echocardiogram obtained in November 2024 55 to 60%, basal inferior wall akinetic, trace MR, mild TR - Cardiac catheterization history: February 2020 revealing [place] three-vessel coronary artery disease with patent SVG to RCA. No significant progression of [place] circumflex coronary artery. Medical management was recommended. Progress note 03/31/2025 still notices to be hypertensive. Yesterday she was added on Imdur 60. She is maintained on hydralazine 25 3 times daily. For some reason she is not on amlodipine which is a preferred medication of renal transplant therefore I will add that. PHYSICAL EXAM: VITAL SIGNS: Reviewed. GENERAL: Well-developed in no acute distress. HEENT: Head is normocephalic. Pupils are equal, round. Sclerae anicteric. Mucous membranes of the mouth are moist. Neck supple. No JVD or thyromegaly LUNGS: Respirations even and unlabored. Lungs essentially clear to auscultation bilaterally. HEART: Regular rate and rhythm. S1 and S2 heard. ABDOMEN: Soft. Nondistended. Nontender. EXTREMITIES: Normal range of motion. No clubbing or cyanosis. Peripheral pulses intact. No lower extremity edema NEUROLOGIC: Awake and alert. Oriented x 3. ASSESSMENT: Chest pain Minimally elevated troponin, possible small NSTEMI versus elevation due to poor renal clearance, unable to determine at this time Coronary artery disease with previous CABG Cardiomyopathy with a EF of 30 to 35%, currently euvolemic. NYHA class III. Previously 40 to 45% in 2020 Chronic kidney disease History of renal transplant History of bradycardia likely from sick sinus syndrome, previously denied pacemaker but currently acceptable. Hypertension Hyperlipidemia Diabetes Obesity: BMI 37.1 PLAN: Add amlodipine 5 mg daily. Aspirin, Lipitor, Farxiga Continue Imdur 60 daily and hydralazine at 50 3 times daily Continue Ranexa 500 mg twice a day Avoid any AV chucky blocking agents due to history of bradycardia with pauses and sick sinus syndrome Patient would benefit from BiV ICD on outpatient basis because of wide QRS, cardiomyopathy along with sick sinus syndrome with evidence of dropping heart rate even while she is awake in the hospital during telemetry monitoring and prior episodes of more than 3-second pauses on the heart monitor. Follow-up with Dr. Pandey Objective - Vital Signs Vital signs: Vital Signs Temp 97.7 F 03/31/25 07:14 Pulse 74 03/31/25 07:14 Resp 16 03/31/25 07:14 BP 171/77 03/31/25 07:14 Pulse Ox 97 03/31/25 07:14 FiO2 Intake & Output 03/30/25 03/31/25 03/31/25 18:59 06:59 18:59 Intake Total 118 Balance 118 Weight 104.326 kg Intake: Oral 118 Other: # Voids 0 2 - Labs CBC & Chem 7: 03/29/25 23:55 03/29/25 23:55 Labs: Abnormal Lab Results - Last 24 Hours (Table) 03/29/25 03/30/25 03/30/25 Range/Units 12:13 17:35 20:21 POC Glucose (mg/dL) 120 H 178 H (70-110) mg/dL Hemoglobin A1c 6.9 H (<=6.0) % 03/31/25 Range/Units 12:07 POC Glucose (mg/dL) 139 H (70-110) mg/dL Hemoglobin A1c (<=6.0) % Microbiology - Last 24 Hours (Table) 03/30/25 06:41 Urine Culture - Final Urine,Voided
[2025-03-31] MEDS: amLODIPine 5 MG TAB PO SCH (13:57)
[2025-03-31] MEDS: hydrALAZINE HCL 50 MG TAB PO SCH (13:57)
[2025-03-31 17:36] LABS: Glucose,Whole Blood 116 mg/dL (70-110)
--- NOTE | 2025-03-31 17:54 | P.HPIM ---
History of Present Illness H&P Date: 03/30/25 Chief Complaint: Chest pain 74-year-old female past medical history of CAD presenting for chest pain. Patient states at 7 PM she had pressure-like chest pain radiating towards her left shoulder blade that woke her up from a nap. She took a sublingual nitro with brief which briefly resolved her pain however it returned. She took a total of support sublingual nitroglycerin with intermittent relief of pain however pain did come back. She also took 4 baby aspirin. The time she arrived to the ER pain has since subsided. Denies diaphoresis, nausea, vomiting, shortness of breath, fevers, chills, abdominal pain. - EKG reveals sinus mechanism with IVCD. - Chest xray chronic changes without acute pulmonary process. - Laboratory data: WBC 6.28. Hemoglobin 12.1. Platelet count 164. Sodium 139. Potassium 4.8. BUN 42. Creatinine 1.72. Troponin 0.026. 0.032. 0.038 - Most recent echocardiogram obtained in November 2024 55 to 60%, basal inferior wall akinetic, trace MR, mild TR Review of Systems REVIEW OF SYSTEMS: CONSTITUTIONAL: No fever, no malaise, no fatigue. HEENT: No recent visual problems or hearing problems. Denied any sore throat. CARDIOVASCULAR: No chest pain, orthopnea, PND, no palpitations, no syncope. PULMONARY: No shortness of breath, no cough, no hemoptysis. GASTROINTESTINAL: No diarrhea, no nausea, no vomiting, no abdominal pain. NEUROLOGICAL: No headaches, no weakness, no numbness. HEMATOLOGICAL: Denies any bleeding or petechiae. GENITOURINARY: Denies any burning micturition, frequency, or urgency. MUSCULOSKELETAL/RHEUMATOLOGICAL: Denies any joint pain, swelling, or any muscle pain. ENDOCRINE: Denies any polyuria or polydipsia. The rest of the 14-point review of systems is negative. Past Medical History Past Medical History: Coronary Artery Disease (CAD), Diabetes Mellitus, Eye Disorder, Hyperlipidemia, Hypertension, Myocardial Infarction (MD), Renal Disease, Skin Disorder Additional Past Medical History / Comment(s): R eye glaucoma, retinal bleed and little vision, renal failure Stage 3 - R renal transplant in 2008, UTIs with sepsis, Last Myocardial Infarction Date:: 2009 History of Any Multi-Drug Resistant Organisms: None Reported Past Surgical History: Appendectomy, Cholecystectomy, Coronary Bypass/CABG, Heart Catheterization, Hernia Repair, Hysterectomy Additional Past Surgical History / Comment(s): 2009 right kidney transplant, 4 vessel CABG in 2010, umbilical hernia repair, colonoscopies, silvia cataract removed, R eye laser surgeries. Past Anesthesia/Blood Transfusion Reactions: No Reported Reaction Additional Past Anesthesia/Blood Transfusion Reaction / Comment(s): unknown Past Psychological History: No Psychological Hx Reported Smoking Status: Former smoker Past Alcohol Use History: None Reported Past Drug Use History: None Reported - Past Family History Brother(s) Family Medical History: Cancer Additional Family Medical History / Comment(s): one brother had kidney cancer. one brother had prostate cancer Mother Family Medical History: Coronary Artery Disease (CAD) Additional Family Medical History / Comment(s): mom had heart disease Father Family Medical History: Cancer Additional Family Medical History / Comment(s): lung and pancreatic cancer Medications and Allergies Home Medications Medication Instructions Recorded Confirmed Type Tacrolimus [Prograf] 2 mg PO DAILY 09/13/17 03/30/25 History Isosorbide Mononitrate ER [Imdur] 30 mg PO DAILY 11/26/17 03/30/25 History Insulin Glargine,Hum.rec.anlog 44 units SQ HS 04/18/20 03/30/25 History [Toujeo Solostar] Magnesium Oxide 400 mg PO DAILY 04/18/20 03/30/25 History Tacrolimus [Prograf] 1 mg PO HS 04/18/20 03/30/25 History Aspirin 81 mg PO DAILY #30 chew 04/22/20 03/30/25 Rx Atorvastatin [Lipitor] 40 mg PO HS #30 tab 04/22/20 03/30/25 Rx Cranberry Fruit Extract [Cranberry] 1,500 mg PO DAILY 06/21/24 03/30/25 History INSULIN ASPART (NovoLOG) [NovoLOG See Protocol SQ AC-TID 06/21/24 03/30/25 History (formulary)] Ascorbic Acid [Vitamin C] 1,000 mg PO DAILY 11/15/24 03/30/25 History Cholecalciferol (Vitamin D3) 50 mcg PO BID 11/15/24 03/30/25 History [Vitamin D3 (50 Mcg = 2000 Iu)] hydrALAZINE HCL [Apresoline] 25 mg PO TID #90 tab 11/17/24 03/30/25 Rx Dapagliflozin Propanediol [Farxiga] 10 mg PO DAILY 03/30/25 03/30/25 History Mycophenolate Sodium [Mycophenolic 360 mg PO BID 03/30/25 03/30/25 History Acid] Allergies Allergy/AdvReac Type Severity Reaction Status Date / Time metoclopramide HCl Allergy Unknown Verified 03/30/25 07:54 [From Reglan] adhesive tape AdvReac tears skin Verified 03/30/25 07:54 grapefruit [Grapefruit] AdvReac reaction Verified 03/30/25 07:54 with simvastatin ibuprofen AdvReac kidney Verified 03/30/25 07:54 failure/transplant ropinirole [From Requip] AdvReac LEG CRAMPS Verified 03/30/25 07:54 nupur Allergy Rash/Hives Uncoded 03/29/25 21:21 Physical Exam Vitals: Vital Signs Temp Pulse Resp BP Pulse Ox 03/30/25 12:28 147/67 03/30/25 12:00 76 18 140/67 97 03/30/25 09:00 73 17 187/90 97 03/30/25 01:00 85 18 178/82 96 03/30/25 00:21 98.1 F 80 18 190/94 97 03/29/25 21:17 98.2 F 82 20 96/68 97 Intake and Output 03/29/25 03/30/25 03/30/25 22:59 06:59 14:59 Other: Weight 104.326 kg CONSTITUTIONAL: [no apparent distress, well appearing] SKIN: [warm, dry, no jaundice, hives or petechiae] EYES:[ pupils are equally round, extraocular movements intact without nystagmus, clear conjunctiva, non-icteric sclera] HENT: [normocephalic, atraumatic, moist mucus membranes, oropharynx clear without exudates] NECK: , [Full range of motion, normal appearance] PULMONARY: [clear to auscultation without wheezes, rhonchi, or rales, normal excursion, no accessory muscle use and no stridor] CARDIOVASCULAR:[ regular rate, rhythm, normal S1 and S2. No appreciated murmurs, rubs or gallops. Strong radial pulses with intact distal perfusion. No lower extremity edema] GASTROINTESTINAL: [soft, active bowel sounds throughout, non-tender, non-disten ded, no palpable masses, no rebound or guarding. No hepatosplenomegaly] GENITOURINARY: MUSCULOSKELETAL: [Extremities have no gross deformity, no edema, redness, or swelling. No calf swelling ] NEUROLOGIC: [_a/o x 3, GCS 15, normal mentation and speech. Moves all extremities x 4 without motor or sensory deficit] PSYCHIATRIC:[ _normal mood and affect, thought process is clear and linear] Results CBC & Chem 7: 03/29/25 23:55 03/29/25 23:55 Labs: Abnormal Lab Results - Last 24 Hours (Table) 03/29/25 03/29/25 03/29/25 Range/Units 23:55 23:55 23:55 Eosinophils # 0.49 H (0.04-0.35) 10*3/uL APTT 18.9 L (22.0-30.0) sec BUN 42 H (7-17) mg/dL Creatinine 1.72 H (0.52-1.04) mg/dL Glucose 142 H (74-99) mg/dL POC Glucose (mg/dL) (70-110) mg/dL Troponin I (0.000-0.034) ng/mL Urine Protein (Negative) Ur Leukocyte Esterase (Negative) Urine WBC (0-5) /hpf Urine WBC Clumps (None) /hpf Urine Bacteria (None) /hpf 03/30/25 03/30/25 03/30/25 Range/Units 06:41 07:10 11:59 Eosinophils # (0.04-0.35) 10*3/uL APTT (22.0-30.0) sec BUN (7-17) mg/dL Creatinine (0.52-1.04) mg/dL Glucose (74-99) mg/dL POC Glucose (mg/dL) 148 H (70-110) mg/dL Troponin I 0.038 H* (0.000-0.034) ng/mL Urine Protein Trace H (Negative) Ur Leukocyte Esterase Moderate H (Negative) Urine WBC 31 H (0-5) /hpf Urine WBC Clumps Occasional H (None) /hpf Urine Bacteria Rare H (None) /hpf Assessment and Plan Assessment: 1. Chest pain rule out acute coronary syndrome/possible NSTEMI --Blood work reveals mildly elevated troponin; NSTEMI versus mild elevation related to poor renal clearance - Patient is admitted to telemetry; monitor EKG and trend troponin - Order 2D echo - Patient has been evaluated by cardiology and recommending to resume home cardiac medications; Imdur to be increased to 60 mg daily; Ranexa 500 mg twice daily is added 2. Acute renal injury/CKD; history of renal transplant; we will continue with IV fluid hydration; monitor strict GUILLERMINA's, daily weights, renal function electrolytes; avoid nephrotoxins and hypotension 3. Hypertension; hydralazine 25 mg 3 times daily; Imdur 30 mg daily; cardiology recommending to increase Imdur up to 60 mg daily 4. Hyperlipidemia; Lipitor 40 mg nightly 5. Diabetes mellitus type 2; Farxiga 10 mg daily; monitor Accu-Cheks ACHS with insulin sliding scale 6. History of symptomatic bradycardia; patient declines pacemaker implantation; cardiology recommending to avoid AV chucky blocking agents 7. Obesity; counseling done on need for weight reduction DVT prophylaxis; SCDs CODE STATUS; full code
--- NOTE | 2025-03-31 17:56 | P.PN ---
Subjective Progress Note Date: 03/31/25 74-year-old female past medical history of CAD presenting for chest pain. Patient states at 7 PM she had pressure-like chest pain radiating towards her left shoulder blade that woke her up from a nap. She took a sublingual nitro with brief which briefly resolved her pain however it returned. She took a total of support sublingual nitroglycerin with intermittent relief of pain however pain did come back. She also took 4 baby aspirin. The time she arrived to the ER pain has since subsided. Denies diaphoresis, nausea, vomiting, shortness of breath, fevers, chills, abdominal pain. - EKG reveals sinus mechanism with IVCD. - Chest xray chronic changes without acute pulmonary process. - Laboratory data: WBC 6.28. Hemoglobin 12.1. Platelet count 164. Sodium 139. Potassium 4.8. BUN 42. Creatinine 1.72. Troponin 0.026. 0.032. 0.038 - Most recent echocardiogram obtained in November 2024 55 to 60%, basal inferior wall akinetic, trace MR, mild TR Objective - Vital Signs Vital signs: Vital Signs Temp 97.7 F 03/31/25 07:14 Pulse 74 03/31/25 07:14 Resp 16 03/31/25 07:14 BP 171/77 03/31/25 07:14 Pulse Ox 97 03/31/25 07:14 FiO2 Intake & Output 03/30/25 03/31/25 03/31/25 18:59 06:59 18:59 Intake Total 118 Balance 118 Weight 104.326 kg Intake: Oral 118 Other: # Voids 0 2 - Exam CONSTITUTIONAL: [no apparent distress, well appearing] SKIN: [warm, dry, no jaundice, hives or petechiae] EYES:[ pupils are equally round, extraocular movements intact without nystagmus, clear conjunctiva, non-icteric sclera] HENT: [normocephalic, atraumatic, moist mucus membranes, oropharynx clear without exudates] NECK: , [Full range of motion, normal appearance] PULMONARY: [clear to auscultation without wheezes, rhonchi, or rales, normal excursion, no accessory muscle use and no stridor] CARDIOVASCULAR:[ regular rate, rhythm, normal S1 and S2. No appreciated murmurs, rubs or gallops. Strong radial pulses with intact distal perfusion. No lower extremity edema] GASTROINTESTINAL: [soft, active bowel sounds throughout, non-tender, non- distended, no palpable masses, no rebound or guarding. No hepatosplenomegaly] GENITOURINARY: MUSCULOSKELETAL: [Extremities have no gross deformity, no edema, redness, or swelling. No calf swelling ] NEUROLOGIC: [_a/o x 3, GCS 15, normal mentation and speech. Moves all extremities x 4 without motor or sensory deficit] PSYCHIATRIC:[ _normal mood and affect, thought process is clear and linear] - Labs CBC & Chem 7: 03/29/25 23:55 03/29/25 23:55 Labs: Abnormal Lab Results - Last 24 Hours (Table) 03/29/25 03/30/25 03/30/25 Range/Units 12:13 17:35 20:21 POC Glucose (mg/dL) 120 H 178 H (70-110) mg/dL Hemoglobin A1c 6.9 H (<=6.0) % 03/31/25 Range/Units 12:07 POC Glucose (mg/dL) 139 H (70-110) mg/dL Hemoglobin A1c (<=6.0) % Microbiology - Last 24 Hours (Table) 03/30/25 06:41 Urine Culture - Final Urine,Voided Assessment and Plan Assessment: 1. Chest pain rule out acute coronary syndrome/possible NSTEMI --Blood work reveals mildly elevated troponin; NSTEMI versus mild elevation related to poor renal clearance - Patient is admitted to telemetry; monitor EKG and trend troponin - Order 2D echo - Patient has been evaluated by cardiology and recommending to resume home cardiac medications; Imdur to be increased to 60 mg daily; Ranexa 500 mg twice daily is added 2. Acute renal injury/CKD; history of renal transplant; we will continue with IV fluid hydration; monitor strict GUILLERMINA's, daily weights, renal function electrolytes; avoid nephrotoxins and hypotension 3. Hypertension; hydralazine 25 mg 3 times daily; Imdur 30 mg daily; cardiology recommending to increase Imdur up to 60 mg daily 4. Hyperlipidemia; Lipitor 40 mg nightly 5. Diabetes mellitus type 2; Farxiga 10 mg daily; monitor Accu-Cheks ACHS with insulin sliding scale 6. History of symptomatic bradycardia; patient declines pacemaker implantation; cardiology recommending to avoid AV chucky blocking agents 7. Obesity; counseling done on need for weight reduction DVT prophylaxis; SCDs CODE STATUS; full code
[2025-03-31 20:25] LABS: Glucose,Whole Blood 109 mg/dL (70-110)
[2025-04-01 05:27] LABS: Glucose,Whole Blood 84 mg/dL (70-110)
[2025-04-01 07:48] VITALS: BP 119/68; PULSE 67; RESP 17; TEMP 97.8
[2025-04-01 12:21] LABS: Glucose,Whole Blood 103 mg/dL (70-110)
--- NOTE | 2025-04-01 19:32 | P.PN ---
Subjective Progress Note Date: 04/01/25 HISTORY OF PRESENT ILLNESS: This is a 74-year-old female with a past medical history significant for co ronary artery disease with previous CABG, bradycardia, hypertension, hyperlipidemia, diabetes, and obesity. Patient follows in the office with Dr. Girard. We have been asked to see the patient in consultation for chest pain. Patient examined at the bedside in the emergency room. Patient states yesterday she was taking a nap when she was woke up from her sleep with chest discomfort. She states the pain was in the middle of her chest. She denies any radiation of the pain. She states the pain felt like a pressure type sensation. She denies any chest pain or pressure at this morning. She states she is feeling back to her baseline. It is noted that the patient was hospitalized earlier this year and was given an event monitor revealing bradycardia with pauses of [address] Girard recommended that patient undergo permanent pacemaker implantation and this was discussed at her follow-up appointment in January. However patient has declined to undergo pacemaker implantation. DIAGNOSTICS: - EKG reveals sinus mechanism with IVCD. - Chest xray chronic changes without acute pulmonary process. - Laboratory data: WBC 6.28. Hemoglobin 12.1. Platelet count 164. Sodium 139. Potassium 4.8. BUN 42. Creatinine 1.72. Troponin 0.026. 0.032. 0.038 - Current home cardiac medications include aspirin 81 mg daily, hydralazine 25 mg 3 times daily, Farxiga 10 mg daily, Imdur 30 mg daily, Lipitor 40 mg at night. - Most recent echocardiogram obtained in November 2024 55 to 60%, basal inferior wall akinetic, trace MR, mild TR - Cardiac catheterization history: February 2020 revealing [place] three-vessel coronary artery disease with patent SVG to RCA. No significant progression of [place] circumflex coronary artery. Medical management was recommended. Progress note 03/31/2025 still notices to be hypertensive. Yesterday she was added on Imdur 60. She is maintained on hydralazine 25 3 times daily. For some reason she is not on amlodipine which is a preferred medication of renal transplant therefore I will add that. 04/01/2025 No further pauses in last 24 hours. No new cardiovascular symptoms. Hemodynamically stable. Euvolemic. PHYSICAL EXAM: VITAL SIGNS: Reviewed. GENERAL: Well-developed in no acute distress. HEENT: Head is normocephalic. Pupils are equal, round. Sclerae anicteric. Mucous membranes of the mouth are moist. Neck supple. No JVD or thyromegaly LUNGS: Respirations even and unlabored. Lungs essentially clear to auscultation bilaterally. HEART: Regular rate and rhythm. S1 and S2 heard. ABDOMEN: Soft. Nondistended. Nontender. EXTREMITIES: Normal range of motion. No clubbing or cyanosis. Peripheral pulses intact. No lower extremity edema NEUROLOGIC: Awake and alert. Oriented x 3. ASSESSMENT: Chest pain Minimally elevated troponin, possible small NSTEMI versus elevation due to poor renal clearance, unable to determine at this time Coronary artery disease with previous CABG Cardiomyopathy with a EF of 30 to 35%, currently euvolemic. NYHA class III. Previously 40 to 45% in 2020 Chronic kidney disease History of renal transplant History of bradycardia likely from sick sinus syndrome, previously denied pacemaker but currently acceptable. Hypertension Hyperlipidemia Diabetes Obesity: BMI 37.1 PLAN: Add amlodipine 5 mg daily. Aspirin, Lipitor, Farxiga Continue Imdur 60 daily and hydralazine at 50 3 times daily Continue Ranexa 500 mg twice a day Avoid any AV chucky blocking agents due to history of bradycardia with pauses and sick sinus syndrome Patient would benefit from BiV ICD on outpatient basis because of wide QRS, cardiomyopathy along with sick sinus syndrome with evidence of dropping heart rate even while she is awake in the hospital during telemetry monitoring and prior episodes of more than 3-second pauses on the heart monitor. Okay to be discharged from cardiac standpoint. Recommend outpatient follow-up with Dr. Girard Objective - Vital Signs Vital signs: Vital Signs Temp 97.8 F 04/01/25 07:00 Pulse 67 04/01/25 07:00 Resp 17 04/01/25 07:00 BP 119/68 04/01/25 07:00 Pulse Ox 97 04/01/25 07:00 FiO2 Intake & Output 04/01/25 04/01/25 04/02/25 06:59 18:59 06:59 Intake Total 180 Balance 180 Intake: Oral 180 Other: # Voids 2 - Labs CBC & Chem 7: 03/29/25 23:55 03/29/25 23:55
== END 2025-04-01 14:06 | disposition home or self-care (01) ==
LOC: EC 21:14 → 6NMEDSUR 03-30 03:40
PROVIDERS: ADMIT Hospitalist; ATTEND Hospitalist
DX: R07.9 Chest pain, unspecified (principal); N17.9 Acute kidney failure, unspecified; R79.89 Other specified abnormal findings of blood chemistry; E11.22 Type 2 diabetes mellitus with diabetic chronic kidney disease; E66.9 Obesity, unspecified; E78.5 Hyperlipidemia, unspecified; I12.9 Hypertensive chronic kidney disease with stage 1 through stage 4 chronic kidney disease, or unspecified chronic kidney disease; I25.10 Atherosclerotic heart disease of native coronary artery without angina pectoris; I25.2 Old myocardial infarction; I42.9 Cardiomyopathy, unspecified; Z68.37 Body mass index [BMI] 37.0-37.9, adult; Z79.82 Long term (current) use of aspirin; Z79.84 Long term (current) use of oral hypoglycemic drugs; Z79.899 Other long term (current) drug therapy; Z87.891 Personal history of nicotine dependence; Z95.1 Presence of aortocoronary bypass graft; Z94.0 Kidney transplant status; Z88.8 Allergy status to other drugs, medicaments and biological substances; Z88.6 Allergy status to analgesic agent; Z79.4 Long term (current) use of insulin
CPT/HCPCS: 96372; 99285; 36415; 93005; 80061; 80053; 83735; 84484; 85025; 85610; 85730; 81001; 87086; 83036; 71046; G0378 ×3; C8924; J1644; J7507 ×3; Q9957; J7518 ×3; 93308

== ENCOUNTER 2025-04-01 20:57 | Inpatient (IN) | payer MEDICARE ==
[2025-04-01 21:33] LABS: Basophils # (A) 0.07 10*3/uL (0.00-0.10); Basophils % (A) 1.4 %; Eosinophils # (A) 0.22 10*3/uL (0.04-0.35); Eosinophils % (A) 4.5 %; HGB 11.8 g/dL (12.0-15.0); Lymphocytes # (A) 1.11 10*3/uL (0.90-5.00); Lymphocytes % (A) 22.6 %; MCH 28.4 pg (27.0-32.0); MCHC 32.8 g/dL (32.0-37.0); MCV 86.7 fL (80.0-97.0); Mean Platelet Volume 10.6 fL (9.5-12.2); Monocytes # (A) 0.35 10*3/uL (0.20-1.00); Monocytes % (A) 7.1 %; Neutrophils # (A) 3.15 10*3/uL (1.80-7.70); Neutrophils % (A) 64.2 %; Platelet Count 189 10*3/uL (140-440); RBC 4.15 10*6/uL (4.10-5.20); RDW 13.3 % (11.5-14.5); WBC 4.91 10*3/uL (4.50-10.00)
--- NOTE | 2025-04-01 21:48 | XR ---
EXAMINATION TYPE: XR chest 2V DATE OF EXAM: 04/01/2025 9:40 PM COMPARISON: Prior chest radiograph 03/29/2025. CLINICAL INDICATION: Female, 74 years old with history of difficulty breathing; [facility] TECHNIQUE: XR chest 2V Frontal and lateral views of the chest. FINDINGS: Lungs/Pleura: There is no evidence of pleural effusion, focal consolidation, or pneumothorax. Pulmonary vascularity: Unremarkable. Heart/mediastinum: Cardiomediastinal silhouette is stable from prior studies. Median sternotomy wires . Musculoskeletal: No acute osseous pathology. Other findings: None IMPRESSION: No acute cardiopulmonary disease/process. [facility], , 04/01/2025 9:46 PM
[2025-04-01 21:53] LABS: ALT 14 U/L (4-34); AST 25 U/L (14-36); African American GFR (CKD) 22 (>60 ml/min/1.73 sqM); Albumin 3.7 g/dL (3.5-5.0); Alkaline Phosphatase 101 U/L (38-126); Anion Gap 12 mmol/L; Blood Urea Nitrogen 42 mg/dL (7-17); Calcium 9.5 mg/dL (8.4-10.2); Carbon Dioxide 23 mmol/L (22-30); Chloride 101 mmol/L (98-107); Glucose 182 mg/dL (74-99); Non-African American GFR(CKD) 19 (>60 ml/min/1.73 sqM); Potassium 5.7 mmol/L (3.5-5.1); Sodium 136 mmol/L (137-145); Total Bilirubin 0.6 mg/dL (0.2-1.3); Total Protein 6.9 g/dL (6.3-8.2)
[2025-04-01 21:56] LABS: Prothrombin Time 10.8 sec (10.0-12.5)
[2025-04-01 22:13] LABS: Partial Thromboplastin Time 21.2 sec (22.0-30.0)
--- NOTE | 2025-04-01 22:32 | ED ---
SOB HPI - General Chief Complaint: Shortness of Breath Stated Complaint: Irregular Pulse Time Seen by Provider: 04/01/25 22:28 Source: patient, RN notes reviewed, old records reviewed, Caregiver Mode of arrival: wheelchair Limitations: no limitations - History of Present Illness Initial Comments: This is a 74-year-old female to the ER for evaluation of chest pains or shortness of breath weakness, recent hospital discharge just today where she was admitted for chest pain observation. Patient comes in feeling lightheaded and weak feels like she may pass out. He patient has no fevers or illness otherwise. Just feels weak MD Complaint: shortness of breath, chest pain -: days(s) Severity: moderate Severity scale (1-10): 4 Consistency: constant Improves With: oxygen Worsens With: exertion, movement Known History Of: congestive heart failure Context: anxiety, recent illness Associated Symptoms: chest pain, cough Treatments Prior to Arrival: none - Related Data Home Medications Medication Instructions Recorded Confirmed Tacrolimus [Prograf] 2 mg PO DAILY 09/13/17 04/02/25 Isosorbide Mononitrate ER [Imdur] 30 mg PO DAILY 11/26/17 04/02/25 Insulin Glargine,Hum.rec.anlog 44 units SQ HS 04/18/20 04/02/25 [Touchristino Solostar] Magnesium Oxide 400 mg PO DAILY 04/18/20 04/02/25 Tacrolimus [Prograf] 1 mg PO HS 04/18/20 04/02/25 Cranberry Fruit Extract [Cranberry] 1,500 mg PO DAILY 06/21/24 04/02/25 INSULIN ASPART (NovoLOG) [NovoLOG See Protocol SQ AC-TID 06/21/24 04/02/25 (formulary)] Ascorbic Acid [Vitamin C] 1,000 mg PO DAILY 11/15/24 04/02/25 Cholecalciferol (Vitamin D3) 50 mcg PO BID 11/15/24 04/02/25 [Vitamin D3 (50 Mcg = 2000 Iu)] Dapagliflozin Propanediol [Farxiga] 10 mg PO DAILY 03/30/25 04/02/25 Mycophenolate Sodium [Mycophenolic 360 mg PO BID 03/30/25 04/02/25 Acid] Previous Rx's Medication Instructions Recorded Aspirin 81 mg PO DAILY #30 chew 07/13/20 Atorvastatin [Lipitor] 40 mg PO HS #30 tab 04/22/20 Ranolazine [Ranexa] 500 mg PO Q12HR 30 Days #60 tab 04/01/25 amLODIPine [Norvasc] 5 mg PO DAILY 30 Days #30 tab 04/01/25 Acetaminophen Tab [Tylenol] 650 mg PO Q6HR PRN tab 04/05/25 Metoprolol Succinate (ER) [Toprol 100 mg PO DAILY #30 tab 04/05/25 XL] hydrALAZINE HCL [Apresoline] 75 mg PO TID 30 Days #225 tab 04/05/25 Allergies Allergy/AdvReac Type Severity Reaction Status Date / Time metoclopramide HCl Allergy Unknown Verified 04/04/25 09:27 [From Reglan] adhesive tape AdvReac tears skin Verified 04/04/25 09:27 grapefruit [Grapefruit] AdvReac reaction Verified 04/04/25 09:27 with simvastatin ibuprofen AdvReac kidney Verified 04/04/25 09:27 failure/transplant ropinirole [From Requip] AdvReac LEG CRAMPS Verified 04/04/25 09:27 nupur Allergy Rash/Hives Uncoded 04/04/25 09:27 Review of Systems ROS Statement: Those systems with pertinent positive or pertinent negative responses have been documented in the HPI. ROS Other: All systems not noted in ROS Statement are negative. Past Medical History Past Medical History: Coronary Artery Disease (CAD), Diabetes Mellitus, Eye Disorder, Hyperlipidemia, Hypertension, Myocardial Infarction ([place]), Renal Disease, Skin Disorder Additional Past Medical History / Comment(s): R eye glaucoma, retinal bleed and little vision, renal failure Stage 3 - R renal transplant in 2008, UTIs with sepsis, Last Myocardial Infarction Date:: 2009 History of Any Multi-Drug Resistant Organisms: None Reported Past Surgical History: Appendectomy, Cholecystectomy, Coronary Bypass/CABG, Heart Catheterization, Hernia Repair, Hysterectomy Additional Past Surgical History / Comment(s): 2009 right kidney transplant, 4 vessel CABG in 2009, umbilical hernia repair, colonoscopies, silvia cataract removed, R eye laser surgeries. Past Anesthesia/Blood Transfusion Reactions: No Reported Reaction Additional Past Anesthesia/Blood Transfusion Reaction / Comment(s): unknown Past Psychological History: No Psychological Hx Reported Smoking Status: Former smoker Past Alcohol Use History: None Reported Past Drug Use History: None Reported - Past Family History Brother(s) Family Medical History: Cancer Additional Family Medical History / Comment(s): one brother had kidney cancer. one brother had prostate cancer Mother Family Medical History: Coronary Artery Disease (CAD) Additional Family Medical History / Comment(s): mom had heart disease Father Family Medical History: Cancer Additional Family Medical History / Comment(s): lung and pancreatic cancer General Exam Limitations: no limitations General appearance: alert, in no apparent distress Head exam: Present: atraumatic, normocephalic, normal inspection Eye exam: Present: normal appearance, PERRL, EOMI. Absent: scleral icterus, conjunctival injection, periorbital swelling ENT exam: Present: normal exam, mucous membranes moist Neck exam: Present: normal inspection. Absent: tenderness, meningismus, lymphadenopathy Respiratory exam: Present: normal lung sounds bilaterally. Absent: respiratory distress, wheezes, rales, rhonchi, stridor Cardiovascular Exam: Present: normal rhythm, bradycardia, normal heart sounds. Absent: systolic murmur, diastolic murmur, rubs, gallop, clicks GI/Abdominal exam: Present: soft, normal bowel sounds. Absent: distended, tenderness, guarding, rebound, rigid Extremities exam: Present: normal inspection, full ROM, normal capillary refill. Absent: tenderness, pedal edema, joint swelling, calf tenderness Back exam: Present: normal inspection Neurological exam: Present: alert, oriented X3, CN II-XII intact Psychiatric exam: Present: normal affect, normal mood Skin exam: Present: warm, dry, intact, normal color. Absent: rash Course Vital Signs 04/01/25 04/01/25 04/01/25 20:59 22:46 23:00 Temperature 97.9 F Pulse Rate 41 L 37 L Pulse Rate [ 38 L Oil Spot Washer ] Respiratory 15 18 Rate Blood Pressure 113/72 117/50 O2 Sat by Pulse 96 97 Oximetry 04/02/25 04/02/25 04/02/25 00:04 03:10 05:08 Temperature Pulse Rate 44 L 43 L 42 L Pulse Rate [ Oil Spot Washer ] Respiratory 16 16 18 Rate Blood Pressure 131/60 110/45 O2 Sat by Pulse 96 95 96 Oximetry - Reevaluation(s) Reevaluation #1: 04/01/25 23:04 Medical records reviewed Reevaluation #2: 04/01/25 23:04 Patient symptoms unchanged heart rate remains low Reevaluation #3: 04/01/25 23:04 Patient informed of results and questions answered Reevaluation #4: Was pt. sent in by a medical professional or institution (ASTON Luque, SOFTWARE SPECIALIST, urgent care, hospital, or long-term...) When possible be specific @ -no Did you speak to anyone other than the patient for history (EMS, parent, family, police, friend...)? What history was obtained from this source @ -no Did you review nursing and triage notes (agree or disagree)? Why? @ -agree Are old charts reviewed (outside hosp., previous admission, EMS record, old EKG, old radiological studies, urgent care reports/EKG's, long-term records)? Report findings @ -yes Differential Diagnosis (chest pain, altered mental status, abdominal pain women, abdominal pain men, vaginal bleeding, weakness, fever, dyspnea, syncope, hea dache, dizziness, GI bleed, back pain, seizure, CVA, palpatations, mental health, musculoskeletal)? @ -prior EKG interpreted by me (3pts min.). @ -yes X-rays interpreted by me (1pt min.). @ -yes negative for acute disease CT interpreted by me (1pt min.). @ -no U/S interpreted by me (1pt. min.). @ -no What testing was considered but not performed or refused? (CT, X-rays, U/S, labs)? Why? @ -none What meds were considered but not given or refused? Why? @ -none Did you discuss the management of the patient with other professionals (professionals i.e. ASTON Luque, SOFTWARE SPECIALIST, lab, RT, psych nurse, table worker packager, purification director, teacher, inshore undersea warfare officer, lining caser)? Give summary @ -no Was smoking cessation discussed for >3mins.? @ -no Was critical care preformed (if so, how long)? @ -yes31 Were there social determinants of health that impacted care today? How? (Homelessness, low income, unemployed, alcoholism, drug addiction, transportation, low edu. Level, literacy, decrease access to med. care, group home, rehab)? @ -none Was there de-escalation of care discussed even if they declined (Discuss DNR or withdrawal of care, Hospice)? DNR status @ -no What co-morbidities impacted this encounter? (DM, HTN, Smoking, COPD, CAD, Cancer, CVA, ARF, Chemo, Hep., AIDS, mental health diagnosis, sleep apnea, morbid obesity)? @ -none Was patient admitted / discharged? Hospital course, mention meds given and route, prescriptions, significant lab abnormalities, going to OR and other pertinent info. @ - 74 female will be admitted for severe bradycardia palpitations and weakness. Heart rate in the 40s here in the ER with blood pressure maintained, sometimes near syncopal patient will be admitted for cardiac observation Admitted Undiagnosed new problem with uncertain prognosis? @ -no Drug Therapy requiring intensive monitoring for toxicity (Heparin, Nitro, Insulin, Cardizem)? @ -no Were any procedures done? @ -no Diagnosis/symptom? @ -Near syncope and bradycardia Acute, or Chronic, or Acute on Chronic? @ -Acute Uncomplicated (without systemic symptoms) or Complicated (systemic symptoms)? @ -Complicated Side effects of treatment? @ -no Exacerbation, Progression, or Severe Exacerbation? @ -exacerbation Poses a threat to life or bodily function? How? (Chest pain, [place], [place], pneumonia, PE, COPD, DKA, ARF, appy, cholecystitis, CVA, Diverticulitis, Homicidal, Suicidal, threat to staff... and all critical care pts) @ -yes bradycardia Reevaluation #5: Differential Palpitations Ventricular arrhythmias, atrial arrhythmias, myocardial infarction, anemia, thyrotoxicosis, electrolyte imbalance, hypokalemia, pulmonary embolism, pulmonary disease, drugs, alcohol, anxiety, stress.... This is not meant to be an all-inclusive list. Differential Dyspnea: Coronary syndrome, arrhythmia, tamponade, asthma, COPD, pulmonary embolism, pneumonia, pneumothorax, pulmonary effusion, anaphylaxis, diabetic ketoacidosis, flailed chest, pulmonary contusion, diaphragmatic rupture, anemia, neuromuscular, this is not meant to be an all-inclusive list. Differential Dyspnea: Coronary syndrome, arrhythmia, tamponade, asthma, COPD, pulmonary embolism, pneumonia, pneumothorax, pulmonary effusion, anaphylaxis, diabetic ketoacidosis, flailed chest, pulmonary contusion, diaphragmatic rupture, anemia, neuromuscular, this is not meant to be an all-inclusive list. - Consultations Consultation #1: Spoke with [facility] who agrees to admit this patient Medical Decision Making - Medical Decision Making 74 female will be admitted for severe bradycardia palpitations and weakness. Heart rate in the 40s here in the ER with blood pressure maintained, sometimes near syncopal patient will be admitted for cardiac observation - Lab Data Result diagrams: 04/03/25 08:58 04/05/25 03:44 Lab Results 04/01/25 04/01/25 04/01/25 Range/Units 21:16 21:24 21:24 WBC 4.91 (4.50-10.00) 10*3/uL RBC 4.15 (4.10-5.20) 10*6/uL Hgb 11.8 L (12.0-15.0) g/dL Hct 36.0 L (37.2-46.3) % MCV 86.7 (80.0-97.0) fL MCH 28.4 (27.0-32.0) pg MCHC 32.8 (32.0-37.0) g/dL Plt Count 189 (140-440) 10*3/uL MPV 10.6 (9.5-12.2) fL Immature Gran % (Auto) 0.2 % Neutrophils % 64.2 % Lymphocytes % 22.6 % Monocytes % 7.1 % Eosinophils % 4.5 % Basophils % 1.4 % Immature Gran # 0.01 (0.00-0.04) 10*3/uL Neutrophils # 3.15 (1.80-7.70) 10*3/uL Lymphocytes # 1.11 (0.90-5.00) 10*3/uL Monocytes # 0.35 (0.20-1.00) 10*3/uL Eosinophils # 0.22 (0.04-0.35) 10*3/uL Basophils # 0.07 (0.00-0.10) 10*3/uL PT 10.8 (10.0-12.5) sec INR 1.0 (<1.2) APTT 21.2 L (22.0-30.0) sec Sodium (137-145) mmol/L Potassium (3.5-5.1) mmol/L Chloride (98-107) mmol/L Carbon Dioxide (22-30) mmol/L Anion Gap mmol/L BUN (7-17) mg/dL Creatinine (0.52-1.04) mg/dL Est GFR (CKD-EPI)AfAm (>60 ml/min/1.73 sqM) Est GFR (CKD-EPI)NonAf (>60 ml/min/1.73 sqM) Glucose (74-99) mg/dL Calcium (8.4-10.2) mg/dL Total Bilirubin (0.2-1.3) mg/dL AST (14-36) U/L ALT (4-34) U/L Alkaline Phosphatase (38-126) U/L Troponin I (0.000-0.034) ng/mL Total Protein (6.3-8.2) g/dL Albumin (3.5-5.0) g/dL Blood Type Confirm A Positive 04/01/25 04/01/25 Range/Units 21:24 21:24 WBC (4.50-10.00) 10*3/uL RBC (4.10-5.20) 10*6/uL Hgb (12.0-15.0) g/dL Hct (37.2-46.3) % MCV (80.0-97.0) fL MCH (27.0-32.0) pg MCHC (32.0-37.0) g/dL Plt Count (140-440) 10*3/uL MPV (9.5-12.2) fL Immature Gran % (Auto) % Neutrophils % % Lymphocytes % % Monocytes % % Eosinophils % % Basophils % % Immature Gran # (0.00-0.04) 10*3/uL Neutrophils # (1.80-7.70) 10*3/uL Lymphocytes # (0.90-5.00) 10*3/uL Monocytes # (0.20-1.00) 10*3/uL Eosinophils # (0.04-0.35) 10*3/uL Basophils # (0.00-0.10) 10*3/uL PT (10.0-12.5) sec INR (<1.2) APTT (22.0-30.0) sec Sodium 136 L (137-145) mmol/L Potassium 5.7 H (3.5-5.1) mmol/L Chloride 101 (98-107) mmol/L Carbon Dioxide 23 (22-30) mmol/L Anion Gap 12 mmol/L BUN 42 H (7-17) mg/dL Creatinine 2.43 H (0.52-1.04) mg/dL Est GFR (CKD-EPI)AfAm 22 (>60 ml/min/1.73 sqM) Est GFR (CKD-EPI)NonAf 19 (>60 ml/min/1.73 sqM) Glucose 182 H (74-99) mg/dL Calcium 9.5 (8.4-10.2) mg/dL Total Bilirubin 0.6 (0.2-1.3) mg/dL AST 25 (14-36) U/L ALT 14 (4-34) U/L Alkaline Phosphatase 101 (38-126) U/L Troponin I 0.021 (0.000-0.034) ng/mL Total Protein 6.9 (6.3-8.2) g/dL Albumin 3.7 (3.5-5.0) g/dL Blood Type Confirm - EKG Data -: EKG Interpreted by Me (EKG is uncertain rhythm of 40 QRS 150 QTc 442) - Radiology Data Radiology results: report reviewed (Chest x-ray is negative for acute disease), image reviewed Critical Care Time Critical Care Time: Yes Total Critical Care Time: 31 Disposition Clinical Impression: Dehydration, Palpitations, Bradycardia, ESME (acute kidney injury), Hyperkalemia Disposition: ADMITTED IP TO THIS HOSP Condition: Fair Is patient prescribed a controlled substance at d/c from ED?: No Time of Disposition: 23:00
[2025-04-01] MEDS: SODIUM ZIRCONIUM CYCLOSILICATE 10 GM PACKET PO ONE (23:04)
[2025-04-01] MEDS: SODIUM BICARB 8.4% 50 ML SYR (1 MEQ/ML) IV STA (23:06)
[2025-04-01] MEDS: SODIUM CHLORIDE 0.9% 500 ML 500 ML IV ONE (23:06)
[2025-04-01] MEDS: SODIUM CHLORIDE 0.9% 1,000 ML IV SCH (23:06)
[2025-04-01] MEDS: DEXTROSE 50% SYRINGE 50 ML IVP STA (23:07)
[2025-04-01] MEDS: INSULIN REGULAR 100 UNIT/ML VIAL (IV) IV ONE (23:07)
[2025-04-02] MEDS ORDERED: ONDANSETRON 4 MG/2 ML VIAL IVP PRN (01:34)
[2025-04-02] MEDS ORDERED: NALOXONE 0.4 MG/ML 1 ML VIAL IV PRN (01:34)
[2025-04-02] MEDS ORDERED: MORPHINE SULFATE 4 MG/ML SYRINGE IV PRN (01:34)
--- NOTE | 2025-04-02 09:56 | P.CRDCN ---
History of Present Illness History of present illness: HISTORY OF PRESENTING ILLNESS This is a pleasant 74-year-old female past medical history significant for coronary artery disease status post bypass grafting, left bundle branch blo ck with bradycardia, kidney failure status post renal transplant, hypertension, diabetes mellitus, dyslipidemia, former nicotine dependence, obesity and chronic systolic heart failure. She follows in the office with Dr. Pandey. We have been asked to see in consultation for bradycardia. Patient was just discharged from the hospital on the weekend and presented back with weakness and heart rate in t he 30s at home. EKG on arrival reveals left bundle branch block heart rate of 40. She had previously discussed with Dr. Pandey in the office the need for pacemaker secondary to 3.1-second pauses with episodes of nonsustained VT however the patient had declined consistently. A limited echo was done March 30 revealing EF 30 to 35% with severely increased septal wall thickness. She is seen and examined resting comfortably in bed in no acute distress. Overall concern is for weakness. Laboratory data reviewed, hemoglobin 11.8, platelets 189, sodium 136, potassium 5.7, creatinine 2.43, troponin negative x 3. REVIEW OF SYSTEMS At the time of my exam: CONSTITUTIONAL: Denies fever or chills. Complains of generalized weakness. CARDIOVASCULAR: Denies chest pain, shortness of breath, orthopnea, PND or palpitations. RESPIRATORY: Denies cough. GASTROINTESTINAL: Denies abdominal pain, diarrhea, constipation, nausea or vomiting. MUSCULOSKELETAL: Denies myalgias. NEUROLOGIC: Denies numbness, tingling, headache or weakness. ENDOCRINE: Denies fatigue, weight change, polydipsia or polyurina. GENITOURINARY: Denies burning, hematuria or urgency with micturation. HEMATOLOGIC: Denies history of anemia or bleeding. PHYSICAL EXAMINATION Blood pressure 110/45 heart rate 42 afebrile and maintaining oxygen saturation on room air. CONSTITUTIONAL: No apparent distress. HEENT: Head is normocephalic. Pupils are equal, round. Sclerae anicteric. Mucous membranes of the mouth are moist. No JVD. No carotid bruit. CHEST EXAMINATION: Lungs are clear to auscultation. No chest wall tenderness is noted on palpation or with deep breathing. HEART EXAMINATION: Regular rate and rhythm. S1, S2 heard. No murmurs, gallops or rub. ABDOMEN: Soft, nontender. EXTREMITIES: 2+ peripheral pulses, no lower extremity edema and no calf tenderness. NEUROLOGIC EXAMINATION: Patient is awake, alert and oriented x3. ASSESSMENT Bradycardia, symptomatic Left bundle branch block Systolic heart failure, chronic. Clinically look euvolemic. Coronary artery disease status post bypass grafting Hypertension Dyslipidemia Diabetes mellitus Chronic renal failure status post kidney transplant 2008 PLAN Avoid all rate lowering agents. Discussed with Dr. Galindo the need for possible BiV ICD. Obtain a limited echo with contrast and then further decision will be made on type of device. She is now agreeable for pacemaker implantation. N.p.o. after midnight tonight. Check thyroid function. Further recommendations to follow based upon clinical course. Thank you kindly for this consultation. Nurse Practitioner note has been reviewed, I agree with a documented findings and plan of care. Patient was seen and examined. Past Medical History Past Medical History: Coronary Artery Disease (CAD), Diabetes Mellitus, Eye Disorder, Hyperlipidemia, Hypertension, Myocardial Infarction ([place]), Renal Disease, Skin Disorder Additional Past Medical History / Comment(s): R eye glaucoma, retinal bleed and little vision, renal failure Stage 3 - R renal transplant in 2008, UTIs with sepsis, Last Myocardial Infarction Date:: 2009 History of Any Multi-Drug Resistant Organisms: None Reported Past Surgical History: Appendectomy, Cholecystectomy, Coronary Bypass/CABG, Heart Catheterization, Hernia Repair, Hysterectomy Additional Past Surgical History / Comment(s): 2009 right kidney transplant, 4 vessel CABG in 2009, umbilical hernia repair, colonoscopies, silvia cataract removed, R eye laser surgeries. Past Anesthesia/Blood Transfusion Reactions: No Reported Reaction Additional Past Anesthesia/Blood Transfusion Reaction / Comment(s): unknown Past Psychological History: No Psychological Hx Reported Additional Psychological History / Comment(s): Pt resides with her adult grandson who has autism but is high functioning. Pt does not drive, she uses the bus system and daughter's friend for transportation. She ambulates with a cane. Smoking Status: Former smoker Past Alcohol Use History: None Reported Additional Past Alcohol Use History / Comment(s): Pt started smoking as a teen and quit in 2001. Past Drug Use History: None Reported - Past Family History Brother(s) Family Medical History: Cancer Additional Family Medical History / Comment(s): one brother had kidney cancer. one brother had prostate cancer Mother Family Medical History: Coronary Artery Disease (CAD) Additional Family Medical History / Comment(s): mom had heart disease Father Family Medical History: Cancer Additional Family Medical History / Comment(s): lung and pancreatic cancer Medications and Allergies Home Medications Medication Instructions Recorded Confirmed Type Tacrolimus [Prograf] 2 mg PO DAILY 09/13/17 03/30/25 History Isosorbide Mononitrate ER [Imdur] 30 mg PO DAILY 11/26/17 03/30/25 History Insulin Glargine,Hum.rec.anlog 44 units SQ HS 04/18/20 03/30/25 History [Toujeo Solostar] Magnesium Oxide 400 mg PO DAILY 04/18/20 03/30/25 History Tacrolimus [Prograf] 1 mg PO HS 04/18/20 03/30/25 History Aspirin 81 mg PO DAILY #30 chew 04/22/20 03/30/25 Rx Atorvastatin [Lipitor] 40 mg PO HS #30 tab 04/22/20 03/30/25 Rx Cranberry Fruit Extract [Cranberry] 1,500 mg PO DAILY 06/21/24 03/30/25 History INSULIN ASPART (NovoLOG) [NovoLOG See Protocol SQ AC-TID 06/21/24 03/30/25 History (formulary)] Ascorbic Acid [Vitamin C] 1,000 mg PO DAILY 11/15/24 03/30/25 History Cholecalciferol (Vitamin D3) 50 mcg PO BID 11/15/24 03/30/25 History [Vitamin D3 (50 Mcg = 2000 Iu)] hydrALAZINE HCL [Apresoline] 25 mg PO TID #90 tab 11/17/24 03/30/25 Rx Dapagliflozin Propanediol [Farxiga] 10 mg PO DAILY 03/30/25 03/30/25 History Mycophenolate Sodium [Mycophenolic 360 mg PO BID 03/30/25 03/30/25 History Acid] Ranolazine [Ranexa] 500 mg PO Q12HR 30 Days #60 tab 04/01/25 Rx amLODIPine [Norvasc] 5 mg PO DAILY 30 Days #30 tab 04/01/25 Rx hydrALAZINE HCL [Apresoline] 50 mg PO TID 30 Days #90 tab 04/01/25 Rx Allergies Allergy/AdvReac Type Severity Reaction Status Date / Time metoclopramide HCl Allergy Unknown Verified 04/01/25 20:59 [From Reglan] adhesive tape AdvReac tears skin Verified 04/01/25 20:59 grapefruit [Grapefruit] AdvReac reaction Verified 04/01/25 20:59 with simvastatin ibuprofen AdvReac kidney Verified 04/01/25 20:59 failure/transplant ropinirole [From Requip] AdvReac LEG CRAMPS Verified 04/01/25 20:59 nupur Allergy Rash/Hives Uncoded 04/01/25 20:59 Physical Exam Vitals: Vital Signs Temp Pulse Pulse Resp BP Pulse Ox 04/02/25 05:08 42 L 18 110/45 96 04/02/25 03:10 43 L 16 131/60 95 04/02/25 00:04 44 L 16 96 04/01/25 23:00 37 L 18 117/50 97 04/01/25 22:46 38 L 04/01/25 20:59 97.9 F 41 L 15 113/72 96 Intake and Output 04/01/25 04/02/25 04/02/25 22:59 06:59 14:59 Other: Weight 104.326 kg 104.326 kg Results 04/01/25 21:24 04/01/25 21:24 Cardiac Enzymes 04/01/25 04/01/25 04/02/25 Range/Units 21:24 21:24 04:02 AST 25 (14-36) U/L Troponin I 0.021 0.029 (0.000-0.034) ng/mL 04/02/25 Range/Units 06:26 AST (14-36) U/L Troponin I 0.032 (0.000-0.034) ng/mL Coagulation 04/01/25 Range/Units 21:24 PT 10.8 (10.0-12.5) sec APTT 21.2 L (22.0-30.0) sec CBC 04/01/25 Range/Units 21:24 WBC 4.91 (4.50-10.00) 10*3/uL RBC 4.15 (4.10-5.20) 10*6/uL Hgb 11.8 L (12.0-15.0) g/dL Hct 36.0 L (37.2-46.3) % Plt Count 189 (140-440) 10*3/uL Comprehensive Metabolic Panel 04/01/25 Range/Units 21:24 Sodium 136 L (137-145) mmol/L Potassium 5.7 H (3.5-5.1) mmol/L Chloride 101 (98-107) mmol/L Carbon Dioxide 23 (22-30) mmol/L BUN 42 H (7-17) mg/dL Creatinine 2.43 H (0.52-1.04) mg/dL Glucose 182 H (74-99) mg/dL Calcium 9.5 (8.4-10.2) mg/dL AST 25 (14-36) U/L ALT 14 (4-34) U/L Alkaline Phosphatase 101 (38-126) U/L Total Protein 6.9 (6.3-8.2) g/dL Albumin 3.7 (3.5-5.0) g/dL Current Medications Generic Name Dose Route Start Last Admin Trade Name Freq PRN Reason Stop Dose Admin Sodium Chloride 1,000 mls @ 75 mls/hr 04/02/25 09:45 Saline 0.9% IV .[id number] ART Naloxone HCl 0.2 mg 04/02/25 01:34 Naloxone 0.4 Mg/Ml 1 Ml Vial IV Q2M PRN Opioid Reversal Ondansetron HCl 4 mg 04/02/25 01:34 Ondansetron 4 Mg/2 Ml Vial IVP Q8HR PRN Nausea And Vomiting Intake and Output 04/01/25 04/02/25 04/02/25 22:59 06:59 14:59 Other: Weight 104.326 kg 104.326 kg Patient Weight 04/03/25 06:59 Weight 104.326 kg 04/01/25 21:24 04/01/25 21:24
[2025-04-02 10:01] LABS: African American GFR (CKD) 21 (>60 ml/min/1.73 sqM); Anion Gap 10 mmol/L; Blood Urea Nitrogen 45 mg/dL (7-17); Calcium 8.8 mg/dL (8.4-10.2); Carbon Dioxide 22 mmol/L (22-30); Chloride 105 mmol/L (98-107); Glucose 140 mg/dL (74-99); Non-African American GFR(CKD) 18 (>60 ml/min/1.73 sqM); Potassium 5.3 mmol/L (3.5-5.1); Sodium 137 mmol/L (137-145)
--- NOTE | 2025-04-02 10:59 | CA ---
Transthoracic Echo Report Name: Kayla Devine Age: 74 Gender: F : 1950 Exam Date: 04/02/2025 09:22 Exam Location: [place] [facility] Ht (in): 66 Wt (lb): 230 Ordering Physician: Juliann Mendez Attending/Referring Phys: [id number], Andrea Director Of Programming Justyna Quintanilla, VANNA Procedure CPT: Indications: reassess LV function, with definity Cardiac Hx: Technical Quality: Fair Contrast 1: Definity Total Dose (mL): 2 Contrast 2: Total Dose (mL): MEASUREMENTS (Male / Female) Normal Values 2D ECHO LV Diastolic Diameter PLAX 5.5 cm 4.2 - 5.9 / 3.9 - 5.3 cm LV Systolic Diameter PLAX 4.4 cm IVS Diastolic Thickness 1.2 cm 0.6 - 1.0 / 0.6 - 0.9 cm LVPW Diastolic Thickness 1.2 cm 0.6 - 1.0 / 0.6 - 0.9 cm LV Relative Wall Thickness 0.5 RV Internal Dim ED PLAX 1.6 cm LV Ejection Fraction MOD BP 38.0 % >= 55 % LV Diastolic Volume MOD 4C 135.3 cm??? LV Systolic Volume MOD 4C 55.4 cm??? LV Ejection Fraction MOD 4C 40.0 % LV Cardiac Index MOD 4C 1456.9 cm???/min???m??? LV Diastolic Length 4C 7.8 cm LV Systolic Length 4C 6.4 cm LV Diastolic Volume MOD 2C 118.6 cm??? LV Systolic Volume MOD 2C 51.0 cm??? LV Ejection Fraction MOD 2C 38.0 % LV Cardiac Index MOD 2C 1231.3 cm???/min???m??? LV Diastolic Length 2C 7.4 cm LV Systolic Length 2C 6.8 cm FINDINGS Left Ventricle Left ventricular ejection fraction is estimated at 45 %. There is mild inferobasal posterior hypokinesia mildly increased septal wall thickness. Mildly increased posterior wall thickness. Mildly increased left ventricular diastolic diameter. Moderately increased left ventricular diastolic volume. Mild to moderately reduced left ventricular systolic function. Right Ventricle Right Atrium Left Atrium Mitral Valve Aortic Valve Tricuspid Valve Pulmonic Valve Pericardium No pericardial or pleural effusion. Aorta CONCLUSIONS Left ventricle is at upper limits of normal with inferior basal posterior hypokinesia ejection of at least 45%. No pericardial effusion Previewed by: Dr. Elías Alvarez MD (Electronically Signed) Final Date: 02 April 2025 10:58
[2025-04-02] MEDS ORDERED: DEXTROSE 50% SYRINGE 50 ML IVP PRN ×2 (12:53)
[2025-04-02 13:01] LABS: Chloride 100 mmol/L (98-107); Glucose 149 mg/dL (74-99); Potassium 5.2 mmol/L (3.5-5.1); Sodium 137 mmol/L (137-145)
[2025-04-02 13:02] LABS: African American GFR (CKD) 22 (>60 ml/min/1.73 sqM); Anion Gap 11 mmol/L; Blood Urea Nitrogen 48 mg/dL (7-17); Calcium 9.2 mg/dL (8.4-10.2); Carbon Dioxide 26 mmol/L (22-30); Non-African American GFR(CKD) 19 (>60 ml/min/1.73 sqM)
[2025-04-02 13:28] LABS: Glucose,Whole Blood 206 mg/dL (70-110)
[2025-04-02] MEDS: SODIUM CHLORIDE 0.9% 1,000 ML IV SCH ×3 (13:32→13:33)
[2025-04-02] MEDS: SODIUM ZIRCONIUM CYCLOSILICATE 10 GM PACKET PO ONE (13:45)
--- NOTE | 2025-04-02 15:21 | P.HPIM ---
History of Present Illness H&P Date: 04/02/25 This is a pleasant 74-year-old female with medical history significant for diabetes mellitus, hypertension, hyperlipidemia, renal failure stage III with history of right renal transplant in 2008, coronary artery disease with prior four-vessel CABG in 2009. Patient is also a former smoker. Patient comes into the hospital yesterday evening with complaint of sinus bradycardia. She was discharged from the hospital earlier in the day on April 01. She came in feeling lightheaded and states that she checked her pulse and noted it to be in the 30s. She is admitted to the hospital from March 29 to April 01 she was admitted at that time for chest pain in the middle of her chest was a pressure-like se nsation without radiation. Resolved spontaneously. Patient has a history of sinus bradycardia and pauses and she is following up with her cook cold meat with recommendations to undergo permanent pacemaker implantation however has declined this procedure in the past. Cardiology had increased patient's Imdur to 60 mg daily and added Ranexa 500 mg twice daily. Patient was recommended to avoid any AV chucky blocking agents because of the history of bradycardia and pauses. She was discharged home yesterday on the and she came back in because of the bradycardia. On admission patient's heart rate has been 41-37 sinus bradycardia. Blood pressure is 113/72 and she is 96% on room air she is c urrently afebrile. Blood work reveals a sodium level of 136 potassium of 5.7, BUN of 42 creatinine of 2.43. Patient received IV insulin, sodium bicarbonate and Lokelma as well as an amp of D50 for the hyperkalemia. Patient is admitted in observation with a cardiology consultation. She is currently scheduled to undergo a stress echocardiogram today. She will continue on cardiac telemetry and further monitoring of the bradycardia. REVIEW OF SYSTEMS: CONSTITUTIONAL: No fever, no malaise, no fatigue. HEENT: No recent visual problems or hearing problems. Denied any sore throat. CARDIOVASCULAR: No chest pain, orthopnea, PND, no palpitations, no syncope. PULMONARY: No shortness of breath, no cough, no hemoptysis. GASTROINTESTINAL: No diarrhea, no nausea, no vomiting, no abdominal pain. NEUROLOGICAL: No headaches, no weakness, no numbness. HEMATOLOGICAL: Denies any bleeding or petechiae. GENITOURINARY: Denies any burning micturition, frequency, or urgency. MUSCULOSKELETAL/RHEUMATOLOGICAL: Denies any joint pain, swelling, or any muscle pain. ENDOCRINE: Denies any polyuria or polydipsia. The rest of the 14-point review of systems is negative. PHYSICAL EXAMINATION: GENERAL: The patient is alert and oriented x3, not in any acute distress. Well developed, well nourished. HEENT: Pupils are round and equally reacting to light. EOMI. No scleral icterus. No conjunctival pallor. Normocephalic, atraumatic. No pharyngeal erythema. No thyromegaly. CARDIOVASCULAR: S1 and S2 present. No murmurs, rubs, or gallops. PULMONARY: Chest is clear to auscultation, no wheezing or crackles. ABDOMEN: Soft, nontender, nondistended, normoactive bowel sounds. No palpable organomegaly. MUSCULOSKELETAL: No joint swelling or deformity. EXTREMITIES: No cyanosis, clubbing, or pedal edema. NEUROLOGICAL: Gross neurological examination did not reveal any focal deficits. SKIN: No rashes. Assessment Chest pain and shortness of breath Dizziness lightheadedness because of the sinus bradycardia History of coronary artery disease with prior CABG Kidney disease with prior right renal transplant History of bradycardia patient is declining to undergo pacemaker implantation in the past Hypertension Hyperlipidemia Diabetes mellitus type 2 Obesity. Plan Normal saline at 75 mL/h Cardiology consultation Patient scheduled to undergo permanent pacemaker implantation tomorrow 04/03/25 Pending echocardiogram Continue accuchecks ACHS and sliding scale insulin, start lantus 25 mg HS. PT OT consultation The impression and plan of care has been dictated by Aliza Abel, Nurse Practitioner as directed. Dr. Aleah MD I have performed a history and physical examination and medical decision making of this patient, discussed the same with the dictator, and agree with the dictators assessment and plan as written, documented as a scribe. Based on total visit time, I have performed more than 50% of this visit. Past Medical History Past Medical History: Coronary Artery Disease (CAD), Diabetes Mellitus, Eye Disorder, Hyperlipidemia, Hypertension, Myocardial Infarction (PA), Renal Disease, Skin Disorder Additional Past Medical History / Comment(s): R eye glaucoma, retinal bleed and little vision, renal failure Stage 3 - R renal transplant in 2008, UTIs with sepsis, Last Myocardial Infarction Date:: 2009 History of Any Multi-Drug Resistant Organisms: None Reported Past Surgical History: Appendectomy, Cholecystectomy, Coronary Bypass/CABG, Heart Catheterization, Hernia Repair, Hysterectomy Additional Past Surgical History / Comment(s): 2009 right kidney transplant, 4 vessel CABG in 2009, umbilical hernia repair, colonoscopies, silvia cataract removed, R eye laser surgeries. Past Anesthesia/Blood Transfusion Reactions: No Reported Reaction Additional Past Anesthesia/Blood Transfusion Reaction / Comment(s): unknown Past Psychological History: No Psychological Hx Reported Additional Psychological History / Comment(s): Pt resides with her adult grandson who has autism but is high functioning. Pt does not drive, she uses the bus system and daughter's friend for transportation. She ambulates with a cane. Smoking Status: Former smoker Past Alcohol Use History: None Reported Additional Past Alcohol Use History / Comment(s): Pt started smoking as a teen and quit in 2001. Past Drug Use History: None Reported - Past Family History Brother(s) Family Medical History: Cancer Additional Family Medical History / Comment(s): one brother had kidney cancer. one brother had prostate cancer Mother Family Medical History: Coronary Artery Disease (CAD) Additional Family Medical History / Comment(s): mom had heart disease Father Family Medical History: Cancer Additional Family Medical History / Comment(s): lung and pancreatic cancer Medications and Allergies Home Medications Medication Instructions Recorded Confirmed Type Tacrolimus [Prograf] 2 mg PO DAILY 09/13/17 04/02/25 History Isosorbide Mononitrate ER [Imdur] 30 mg PO DAILY 11/26/17 04/02/25 History Insulin Glargine,Hum.rec.anlog 44 units SQ HS 04/18/20 04/02/25 History [Toujeo Solostar] Magnesium Oxide 400 mg PO DAILY 04/18/20 04/02/25 History Tacrolimus [Prograf] 1 mg PO HS 04/18/20 04/02/25 History Aspirin 81 mg PO DAILY #30 chew 04/22/20 04/02/25 Rx Atorvastatin [Lipitor] 40 mg PO HS #30 tab 04/22/20 04/02/25 Rx Cranberry Fruit Extract [Cranberry] 1,500 mg PO DAILY 06/21/24 04/02/25 History INSULIN ASPART (NovoLOG) [NovoLOG See Protocol SQ AC-TID 06/21/24 04/02/25 History (formulary)] Ascorbic Acid [Vitamin C] 1,000 mg PO DAILY 11/15/24 04/02/25 History Cholecalciferol (Vitamin D3) 50 mcg PO BID 11/15/24 04/02/25 History [Vitamin D3 (50 Mcg = 2000 Iu)] hydrALAZINE HCL [Apresoline] 25 mg PO TID #90 tab 11/17/24 04/02/25 Rx Dapagliflozin Propanediol [Farxiga] 10 mg PO DAILY 03/30/25 04/02/25 History Mycophenolate Sodium [Mycophenolic 360 mg PO BID 03/30/25 04/02/25 History Acid] Ranolazine [Ranexa] 500 mg PO Q12HR 30 Days #60 tab 04/01/25 04/02/25 Rx amLODIPine [Norvasc] 5 mg PO DAILY 30 Days #30 tab 04/01/25 04/02/25 Rx hydrALAZINE HCL [Apresoline] 50 mg PO TID 30 Days #90 tab 04/01/25 04/02/25 Rx Allergies Allergy/AdvReac Type Severity Reaction Status Date / Time metoclopramide HCl Allergy Unknown Verified 04/02/25 12:27 [From Reglan] adhesive tape AdvReac tears skin Verified 04/02/25 12:27 grapefruit [Grapefruit] AdvReac reaction Verified 04/02/25 12:27 with simvastatin ibuprofen AdvReac kidney Verified 04/02/25 12:27 failure/transplant ropinirole [From Requip] AdvReac LEG CRAMPS Verified 04/02/25 12:27 nupur Allergy Rash/Hives Uncoded 04/01/25 20:59 Physical Exam Vitals: Vital Signs Temp Pulse Pulse Resp BP Pulse Ox 04/02/25 05:08 42 L 18 110/45 96 04/02/25 03:10 43 L 16 131/60 95 04/02/25 00:04 44 L 16 96 04/01/25 23:00 37 L 18 117/50 97 04/01/25 22:46 38 L 04/01/25 20:59 97.9 F 41 L 15 113/72 96 Intake and Output 04/01/25 04/02/25 04/02/25 22:59 06:59 14:59 Other: Weight 104.326 kg 104.326 kg Results CBC & Chem 7: 04/01/25 21:24 04/02/25 12:15 Labs: Abnormal Lab Results - Last 24 Hours (Table) 04/01/25 04/01/25 04/01/25 Range/Units 21:24 21:24 21:24 Hgb 11.8 L (12.0-15.0) g/dL Hct 36.0 L (37.2-46.3) % APTT 21.2 L (22.0-30.0) sec Sodium 136 L (137-145) mmol/L Potassium 5.7 H (3.5-5.1) mmol/L BUN 42 H (7-17) mg/dL Creatinine 2.43 H (0.52-1.04) mg/dL Glucose 182 H (74-99) mg/dL Thrombosis Risk Factor Assmnt - Choose All That Apply Any of the Below Risk Factors Present?: Yes Assessment and Plan Time with Patient: Less than 30
[2025-04-02] MEDS: hydrALAZINE HCL 25 MG TAB PO SCH (16:00)
[2025-04-02 16:50] LABS: Glucose,Whole Blood 182 mg/dL (70-110)
[2025-04-02] MEDS: INSULIN LISPRO (HumaLOG) 100 UNIT/ML 10 mL VL SQ SCH (16:53)
--- NOTE | 2025-04-02 17:09 | P.EPCON ---
Electrophysiology Consult - EP Consult Electrophysiology Consult: This is Dr. Gao dictating a consult on this patient The patient was interviewed and examined IMPRESSION / ASSESSMENT: Patient admitted with presyncope and lightheadedness and bradycardia Initial twelve-lead EKG shows a slow idioventricular rhythm at 40 beats a minute left bundle branch block pattern QRS width 150 ms, left bundle branch block pattern, typical Known coronary artery disease status post coronary artery bypass grafting and old inferior basal OK I repeated her 2D echo once again with Definity contrast since she had had an echo about 2 weeks back which showed severe LV dysfunction but it was a suboptimal quality study. In November she had had a 2D echo which showed preserved systolic function I reviewed the echo images and my interpretation is that the left ventricular ejection fraction is at least 50%. She does have an inferior basal akinesis but the area is small overall LV function is preserved In view of her left bundle branch block pattern on twelve-lead EKG and an ejection fraction at the lower limits of normal and known coronary artery disease, I would recommend a biventricular pacemaker with maximization of beta- blockers. Currently beta-blockers are on hold. She also has known chronic kidney disease with a creatinine of around 2.5 and potassium at the upper limits of normal. She has had a kidney transplant in the past. History of hypertension Troponins are normal PLAN: Biventricular pacemaker implantation along with beta-francine therapy Continue antiatherosclerotic therapy Detailed discussion with the patient regarding biventricular pacing and she is agreeable to proceed. We will schedule it for 03 April, late case IV vancomycin tomorrow morning She will get a clear liquid breakfast which she will finish before 8 AM and will be n.p.o. thereafter except medications Discussed with her nurse and orders put in accordingly HPI Patient admitted with lightheadedness. She was just discharged 1 to 2 days back. Her initial EKG showed severe bradycardia with a left bundle branch block pattern idioventricular rhythm She had an episode of near syncope in November. At that time Dr. Girard had spoken to her about permanent pacemaker implantation which she had declined She was here last week again for the dizzy spells but once again declined the pacemaker However she went home and within 24 hours she had a near syncopal spell and when she came to the hospital she was found to be in an idioventricular rhythm with a left bundle branch block pattern wide QRS ROS: No fever chills or rigors, no cough, phlegm or expectoration, no nausea, vomiting or diarrhea, no hematuria, dysuria, no musculoskeletal complaints, no strokes or seizures, no skin lesions. EXAMINATION: Blood pressure 117/50 mmHg initial pulse rate 37-44 beats a minute afebrile Heart sounds are normal Breath sounds are clear No JVD No lower extremity edema REVIEW OF LABS, ECG & MEDICAL DATA Normal white count, hemoglobin 11.8 Potassium 5.7 then 5.3 BUN 45 and creatinine 2.5, known CKD Normal troponins TSH normal at 4.2
[2025-04-02 20:16] LABS: Glucose,Whole Blood 210 mg/dL (70-110)
[2025-04-02] MEDS ORDERED: NON FORMULARY DRUG (Insulin Glargine,Hum.Rec.Anlog [Toujeo Solostar] 300 UNIT/ML Insuln.Pe SQ SCH (21:00)
[2025-04-02] MEDS: INSULIN GLARGINE (LANTUS) 100 UNIT/ML SYR SQ SCH (21:20)
[2025-04-02] MEDS: MYCOPHENOLATE SODIUM DR 180 MG TABLET.DR PO SCH (21:21)
[2025-04-02] MEDS: TACROLIMUS 1 MG CAP PO SCH (21:22)
[2025-04-02] MEDS: CHOLECALCIFEROL 25 MCG (1000 IU) TABLET PO SCH (21:23)
[2025-04-02] MEDS: ATORVASTATIN 40 MG TAB PO SCH (21:24)
[2025-04-02] MEDS: RANOLAZINE 500 MG TAB.ER.12H PO SCH (21:24)
[2025-04-03 06:10] LABS: Glucose,Whole Blood 90 mg/dL (70-110)
[2025-04-03] MEDS: ASCORBIC ACID 500 MG TAB PO SCH (08:28)
[2025-04-03] MEDS: amLODIPine 5 MG TAB PO SCH (08:28)
[2025-04-03] MEDS: ISOSORBIDE MONONITRATE ER 30 MG TAB.ER.24H PO SCH (08:28)
[2025-04-03] MEDS: TACROLIMUS 1 MG CAP PO SCH (08:31)
[2025-04-03] MEDS: ASPIRIN 81 MG PO SCH (09:26)
[2025-04-03] MEDS: VANCOMYCIN 1,250 MG in SODIUM CHLORIDE 0.9% 250 ML IVPB ONE (09:28)
[2025-04-03 09:37] LABS: Basophils # (A) 0.07 10*3/uL (0.00-0.10); Basophils % (A) 1.4 %; Eosinophils # (A) 0.33 10*3/uL (0.04-0.35); Eosinophils % (A) 6.8 %; HCT 34.3 % (37.2-46.3); HGB 11.2 g/dL (12.0-15.0); Lymphocytes % (A) 24.8 %; MCH 28.8 pg (27.0-32.0); MCHC 32.7 g/dL (32.0-37.0); MCV 88.2 fL (80.0-97.0); Mean Platelet Volume 10.6 fL (9.5-12.2); Monocytes # (A) 0.43 10*3/uL (0.20-1.00); Monocytes % (A) 8.9 %; Neutrophils # (A) 2.79 10*3/uL (1.80-7.70); Neutrophils % (A) 57.9 %; Platelet Count 165 10*3/uL (140-440); RBC 3.89 10*6/uL (4.10-5.20); RDW 13.7 % (11.5-14.5); WBC 4.83 10*3/uL (4.50-10.00)
--- NOTE | 2025-04-03 09:38 | P.PN ---
Subjective HISTORY OF PRESENTING ILLNESS This is a pleasant 74-year-old female past medical history significant for coronary artery disease status post bypass grafting, left bundle branch block with bradycardia, kidney failure status post renal transplant, hypertension, diabetes mellitus, dyslipidemia, former nicotine dependence, obesity and chronic systolic heart failure. She follows in the office with Dr. Pandey. We have been asked to see in consultation for bradycardia. Patient was just discharged from the hospital on the weekend and presented back with weakness and heart rate in the 30s at home. EKG on arrival reveals left bundle branch block heart rate of 40. She had previously discussed with Dr. Pandey in the office the need for pacemaker secondary to 3.1-second pauses with episodes of nonsustained VT however the patient had declined consistently. A limited echo was done March 30 revealing EF 30 to 35% with severely increased septal wall thickness. She is seen and examined resting comfortably in bed in no acute distress. Overall concern is for weakness. Laboratory data reviewed, hemoglobin 11.8, platelets 189, sodium 136, potassium 5.7, creatinine 2.43, troponin negative x 3. 04/03/2025 Patient seen and examined resting comfortably in bed in no acute distress. She was seen yesterday by Dr. Gao with plans for biventricular pacemaker implantation today. Blood pressure 165/70 heart rate 74 afebrile maintaining ox ygen saturation on room air. PHYSICAL EXAMINATION Blood pressure 110/45 heart rate 42 afebrile and maintaining oxygen saturation on room air. CONSTITUTIONAL: No apparent distress. HEENT: Head is normocephalic. Pupils are equal, round. Sclerae anicteric. Mucous membranes of the mouth are moist. No JVD. No carotid bruit. CHEST EXAMINATION: Lungs are clear to auscultation. No chest wall tenderness is noted on palpation or with deep breathing. HEART EXAMINATION: Regular rate and rhythm. S1, S2 heard. No murmurs, gallops or rub. ABDOMEN: Soft, nontender. EXTREMITIES: 2+ peripheral pulses, no lower extremity edema and no calf tenderness. NEUROLOGIC EXAMINATION: Patient is awake, alert and oriented x3. ASSESSMENT Bradycardia, symptomatic Left bundle branch block Systolic heart failure, chronic. Clinically look euvolemic. Coronary artery disease status post bypass grafting Hypertension Dyslipidemia Diabetes mellitus Chronic renal failure status post kidney transplant 2008 PLAN Increase hydralazine to home dose of 75 mg 3 times daily for optimal blood pressure control. Plan for biventricular pacemaker implantation this evening. Further recommendations to follow based upon clinical course. Nurse Practitioner note has been reviewed, I agree with a documented findings and plan of care. Patient was seen and examined. Objective - Vital Signs Vital signs: Vital Signs Temp 97.7 F 04/03/25 07:00 Pulse 74 04/03/25 07:00 Resp 17 04/03/25 07:00 BP 165/70 04/03/25 07:00 Pulse Ox 98 04/03/25 07:00 FiO2 Intake & Output 04/02/25 04/03/25 04/03/25 18:59 06:59 18:59 Intake Total 225 250 Balance 225 250 Weight 104.326 kg Intake: Oral 225 250 Other: Voiding Method Toilet Toilet # Voids 1 1 - Labs CBC & Chem 7: 04/01/25 21:24 04/02/25 12:15 Labs: Abnormal Lab Results - Last 24 Hours (Table) 04/02/25 04/02/25 04/02/25 Range/Units 09:34 12:15 13:13 Potassium 5.3 H 5.2 H (3.5-5.1) mmol/L BUN 45 H 48 H (7-17) mg/dL Creatinine 2.52 H 2.43 H (0.52-1.04) mg/dL Glucose 140 H 149 H (74-99) mg/dL POC Glucose (mg/dL) 206 H (70-110) mg/dL 04/02/25 04/02/25 Range/Units 16:49 20:15 Potassium (3.5-5.1) mmol/L BUN (7-17) mg/dL Creatinine (0.52-1.04) mg/dL Glucose (74-99) mg/dL POC Glucose (mg/dL) 182 H 210 H (70-110) mg/dL
[2025-04-03] MEDS: DAPAGLIFLOZIN PROPANEDIOL 10 MG TABLET PO SCH (09:51)
[2025-04-03 09:55] LABS: ALT 17 U/L (4-34); AST 24 U/L (14-36); African American GFR (CKD) 23 (>60 ml/min/1.73 sqM); Albumin 3.4 g/dL (3.5-5.0); Alkaline Phosphatase 89 U/L (38-126); Anion Gap 8 mmol/L; Blood Urea Nitrogen 42 mg/dL (7-17); Calcium 8.8 mg/dL (8.4-10.2); Carbon Dioxide 26 mmol/L (22-30); Chloride 105 mmol/L (98-107); Glucose 133 mg/dL (74-99); Non-African American GFR(CKD) 20 (>60 ml/min/1.73 sqM); Potassium 4.4 mmol/L (3.5-5.1); Sodium 139 mmol/L (137-145); Total Bilirubin 0.7 mg/dL (0.2-1.3); Total Protein 6.2 g/dL (6.3-8.2)
[2025-04-03] MEDS: hydrALAZINE HCL 25 MG TAB PO SCH (11:09)
[2025-04-03 11:43] LABS: Glucose,Whole Blood 102 mg/dL (70-110)
[2025-04-03 17:05] LABS: Glucose,Whole Blood 120 mg/dL (70-110)
[2025-04-03] MEDS: SODIUM CHLORIDE 0.9% 1,000 ML IV SCH ×2 (17:08)
[2025-04-03 20:18] LABS: Glucose,Whole Blood 176 mg/dL (70-110)
--- NOTE | 2025-04-03 23:02 | P.PN ---
Subjective Progress Note Date: 04/03/25 This is a pleasant 74-year-old female with medical history significant for diabetes mellitus, hypertension, hyperlipidemia, renal failure stage III with history of right renal transplant in 2008, coronary artery disease with prior four-vessel CABG in 2009. Patient is also a former smoker. Patient comes into the hospital yesterday evening with complaint of sinus bradycardia. She was discharged from the hospital earlier in the day on April 01. She came in feeling lightheaded and states that she checked her pulse and noted it to be in the 30s. She is admitted to the hospital from March 29 to April 01 she was admitted at that time for chest pain in the middle of her chest was a pressure-like sensatio n without radiation. Resolved spontaneously. Patient has a history of sinus bradycardia and pauses and she is following up with her national account director with recommendations to undergo permanent pacemaker implantation however has declined this procedure in the past. Cardiology had increased patient's Imdur to 60 mg daily and added Ranexa 500 mg twice daily. Patient was recommended to avoid any AV chucky blocking agents because of the history of bradycardia and pauses. She was discharged home yesterday on the and she came back in because of the bradycardia. On admission patient's heart rate has been 41-37 sinus bradycardia. Blood pressure is 113/72 and she is 96% on room air she is current ly afebrile. Blood work reveals a sodium level of 136 potassium of 5.7, BUN of 42 creatinine of 2.43. Patient received IV insulin, sodium bicarbonate and Lokelma as well as an amp of D50 for the hyperkalemia. Patient is admitted in observation with a cardiology consultation. She is currently scheduled to undergo a stress echocardiogram today. She will continue on cardiac telemetry and further monitoring of the bradycardia. 04/03/2025 Patient evaluated today in follow up on the medical floor she is currently pending permanent pacemaker implantation later this afternoon. Her creatinine remains elevated and need to rule out urinary retention. Ejection fraction is 45% with no pericardial effusion. REVIEW OF SYSTEMS: CONSTITUTIONAL: No fever, no malaise, no fatigue. HEENT: No recent visual problems or hearing problems. Denied any sore throat. CARDIOVASCULAR: No chest pain, orthopnea, PND, no palpitations, no syncope. PULMONARY: No shortness of breath, no cough, no hemoptysis. GASTROINTESTINAL: No diarrhea, no nausea, no vomiting, no abdominal pain. NEUROLOGICAL: No headaches, no weakness, no numbness. PHYSICAL EXAMINATION: GENERAL: The patient is alert and oriented x3, not in any acute distress. Well developed, well nourished. HEENT: Pupils are round and equally reacting to light. EOMI. No scleral icterus. No conjunctival pallor. Normocephalic, atraumatic. No pharyngeal erythema. No thyromegaly. CARDIOVASCULAR: S1 and S2 present. No murmurs, rubs, or gallops. PULMONARY: Chest is clear to auscultation, no wheezing or crackles. ABDOMEN: Soft, nontender, nondistended, normoactive bowel sounds. No palpable organomegaly. MUSCULOSKELETAL: No joint swelling or deformity. EXTREMITIES: No cyanosis, clubbing, or pedal edema. NEUROLOGICAL: Gross neurological examination did not reveal any focal deficits. SKIN: No rashes. Assessment Chest pain and shortness of breath Dizziness lightheadedness because of the sinus bradycardia History of coronary artery disease with prior CABG Chronic kidney disease with prior right renal transplant; baseline creatinine 1. 2 to 1.4. Acute kidney injury Sinusbradycardia Hypertension Hyperlipidemia Diabetes mellitus type 2 Obesity. Plan Cardiology consultation Patient scheduled to undergo permanent pacemaker implantation today Continue accuchecks ACHS and sliding scale insulin, start lantus 25 mg HS. Consult nephrology PT OT consultation The impression and plan of care has been dictated by Aliza Abel Nurse Practitioner as directed. Dr. Aleah MD I have performed a history and physical examination and medical decision making of this patient, discussed the same with the dictator, and agree with the di ctators assessment and plan as written, documented as a scribe. Based on total visit time, I have performed more than 50% of this visit. Objective - Vital Signs Vital signs: Vital Signs Temp 97.7 F 04/03/25 07:00 Pulse 74 04/03/25 07:00 Resp 17 04/03/25 07:00 BP 165/70 04/03/25 07:00 Pulse Ox 98 04/03/25 07:00 FiO2 Intake & Output 04/02/25 04/03/25 04/03/25 18:59 06:59 18:59 Intake Total 225 250 Balance 225 250 Weight 104.326 kg Intake: Oral 225 250 Other: Voiding Method Toilet Toilet # Voids 1 1 - Labs CBC & Chem 7: 04/03/25 08:58 04/03/25 08:58 Labs: Abnormal Lab Results - Last 24 Hours (Table) 04/02/25 04/02/25 04/02/25 Range/Units 09:34 12:15 13:13 RBC (4.10-5.20) 10*6/uL Hgb (12.0-15.0) g/dL Hct (37.2-46.3) % Potassium 5.3 H 5.2 H (3.5-5.1) mmol/L BUN 45 H 48 H (7-17) mg/dL Creatinine 2.52 H 2.43 H (0.52-1.04) mg/dL Glucose 140 H 149 H (74-99) mg/dL POC Glucose (mg/dL) 206 H (70-110) mg/dL 04/02/25 04/02/25 04/03/25 Range/Units 16:49 20:15 08:58 RBC 3.89 L (4.10-5.20) 10*6/uL Hgb 11.2 L (12.0-15.0) g/dL Hct 34.3 L (37.2-46.3) % Potassium (3.5-5.1) mmol/L BUN (7-17) mg/dL Creatinine (0.52-1.04) mg/dL Glucose (74-99) mg/dL POC Glucose (mg/dL) 182 H 210 H (70-110) mg/dL Assessment and Plan Time with Patient: Less than 30
[2025-04-04 04:10] LABS: Glucose,Whole Blood 108 mg/dL (70-110)
[2025-04-04 07:18] LABS: African American GFR (CKD) 28 (>60 ml/min/1.73 sqM); Anion Gap 8 mmol/L; Blood Urea Nitrogen 37 mg/dL (7-17); Calcium 8.8 mg/dL (8.4-10.2); Carbon Dioxide 23 mmol/L (22-30); Chloride 108 mmol/L (98-107); Glucose 109 mg/dL (74-99); Non-African American GFR(CKD) 25 (>60 ml/min/1.73 sqM); Potassium 4.9 mmol/L (3.5-5.1); Sodium 139 mmol/L (137-145)
[2025-04-04] MEDS: IV FLUID CONTINUATION 1,000 ML IV ONE (10:12)
--- NOTE | 2025-04-04 10:37 | P.PN ---
Subjective HISTORY OF PRESENTING ILLNESS This is a pleasant 74-year-old female past medical history significant for coronary artery disease status post bypass grafting, left bundle branch block with bradycardia, kidney failure status post renal transplant, hypertension, diabetes mellitus, dyslipidemia, former nicotine dependence, obesity and chronic systolic heart failure. She follows in the office with Dr. Pandey. We have been asked to see in consultation for bradycardia. Patient was just discharged from the hospital on the weekend and presented back with weakness and heart rate in the 30s at home. EKG on arrival reveals left bundle branch block heart rate of 40. She had previously discussed with Dr. Pandey in the office the need for pacemaker secondary to 3.1-second pauses with episodes of nonsustained VT however the patient had declined consistently. A limited echo was done March 30 revealing EF 30 to 35% with severely increased septal wall thickness. She is seen and examined resting comfortably in bed in no acute distress. Overall concern is for weakness. Laboratory data reviewed, hemoglobin 11.8, platelets 189, sodium 136, potassium 5.7, creatinine 2.43, troponin negative x 3. 04/03/2025 Patient seen and examined resting comfortably in bed in no acute distress. She was seen yesterday by Dr. Gao with plans for biventricular pacemaker implantation today. Blood pressure 165/70 heart rate 74 afebrile maintaining ox ygen saturation on room air. 04/04/2025 Patient seen and examined sitting up at bedside. She is preparing to go for her device this morning. Blood pressure 132/90 heart rate 78 afebrile maintaining oxygen saturation on room air. PHYSICAL EXAMINATION Blood pressure 110/45 heart rate 42 afebrile and maintaining oxygen saturation on room air. CONSTITUTIONAL: No apparent distress. HEENT: Head is normocephalic. Pupils are equal, round. Sclerae anicteric. Mucous membranes of the mouth are moist. No JVD. No carotid bruit. CHEST EXAMINATION: Lungs are clear to auscultation. No chest wall tenderness is noted on palpation or with deep breathing. HEART EXAMINATION: Regular rate and rhythm. S1, S2 heard. No murmurs, gallops or rub. ABDOMEN: Soft, nontender. EXTREMITIES: 2+ peripheral pulses, no lower extremity edema and no calf tenderness. NEUROLOGIC EXAMINATION: Patient is awake, alert and oriented x3. ASSESSMENT Bradycardia, symptomatic Left bundle branch block Systolic heart failure, chronic. Clinically look euvolemic. Coronary artery disease status post bypass grafting Hypertension Dyslipidemia Diabetes mellitus Chronic renal failure status post kidney transplant 2009 PLAN Pacemaker today with Dr. Gao. Further recommendations to follow based upon clinical course. Nurse Practitioner note has been reviewed, I agree with a documented findings and plan of care. Patient was seen and examined. Objective - Vital Signs Vital signs: Vital Signs Temp 98.5 F 04/04/25 09:18 Pulse 78 04/04/25 09:18 Resp 16 04/04/25 09:18 BP 132/90 04/04/25 09:18 Pulse Ox 100 04/04/25 09:18 FiO2 Intake & Output 04/03/25 04/04/25 04/04/25 18:59 06:59 18:59 Intake Total 175 Output Total 1000 Balance 175 -1000 Weight 104.3 kg Intake: Oral 175 Output: Urine 1000 Other: Voiding Method Toilet Toilet # Voids 2 1 - Labs CBC & Chem 7: 04/03/25 08:58 04/04/25 06:05 Labs: Abnormal Lab Results - Last 24 Hours (Table) 04/03/25 04/03/25 04/03/25 Range/Units 08:58 17:04 20:16 Chloride (98-107) mmol/L BUN (7-17) mg/dL Creatinine (0.52-1.04) mg/dL Glucose (74-99) mg/dL POC Glucose (mg/dL) 120 H 176 H (70-110) mg/dL Hemoglobin A1c 6.7 H (<=6.0) % 04/04/25 Range/Units 06:05 Chloride 108 H (98-107) mmol/L BUN 37 H (7-17) mg/dL Creatinine 1.95 H (0.52-1.04) mg/dL Glucose 109 H (74-99) mg/dL POC Glucose (mg/dL) (70-110) mg/dL Hemoglobin A1c (<=6.0) %
[2025-04-04] MEDS ORDERED: fentaNYL (PF) 50 MCG/ML 2 ML AMP ONE (10:52)
[2025-04-04] MEDS ORDERED: PROPOFOL 10 MG/ML 20 ML VIAL IV ONE (10:52)
[2025-04-04] MEDS ORDERED: MIDAZOLAM 2 MG/2 ML VIAL ONE (10:52)
[2025-04-04] MEDS: ROPIVACAINE 5 MG/ML 30 ML VIAL MISCELLANE ONE (11:04)
[2025-04-04] MEDS: LIDOCAINE 1% INJ 10MG/ML (20 ML MDV) SQ ONE (11:04)
[2025-04-04] MEDS: ceFAZolin 1,000 MG in SODIUM CHLORIDE 0.9% IRRIG BTL 250 ML IRRIGATION ONE (11:06)
[2025-04-04 12:44] LABS: Glucose,Whole Blood 94 mg/dL (70-110)
--- NOTE | 2025-04-04 12:47 | P.PN ---
Progress Note - Text Successful dual-chamber pacemaker with left bundle pacing Plan: To maximize left bundle pacing, I would recommend maximizing beta-blockers to prolong the intrinsic LA interval to facilitate left bundle pacing
--- NOTE | 2025-04-04 12:51 | P.EPPROC ---
- EP Procedure Note Electrophysiology Procedure Note: Diagnosis Symptomatic bradycardia, unprovoked, no triggering factors Left bundle branch block morphology with MS interval of 174 ms, intermittent symptomatic bradycardia with syncope/presyncope Left ventricular systolic function 45 to 50%, LVH, chronic kidney disease Obesity Procedure Dual-chamber pacemaker implantation with conduction system pacing (left bundle pacing) Left upper extremity venogram Increased procedural time Details Patient was brought to the EP lab in a fasting state. Written informed consent was obtained prior to the procedure. Conscious sedation provided by BARYTES GRINDER. IV antibiotics administered. Local anesthesia administered. A 4 cm incision made in the pectoral area. Subfascial pocket made. Venous accesses obtained Venous sheaths placed. Leads placed in the right heart. 2 sets of pacing cables were used; one for backup temporary pacing and the other for assessment of current of injury and signal analysis. A 52 cm atrial pacing lead was first positioned in the RV apex for temporary pacing during mapping and conduction system pacing Thresholds were interrogated and backup high output pacing was provided This atrial lead was then removed from the right ventricle and later positioned in the right atrial appendage and the permanent lead A deflected sheath was prepped. A coronary sinus decapolar catheter was placed within this sheath. The catheter along with the sheath was then passed into the right heart, the catheter was prolapsed across the tricuspid valve, into the right ventricle and then further into the right ventricular outflow tract across the pulmonic valve into the pulmonary artery. This sheath was slid over this decapolar catheter into the RVOT. Thereafter the catheter last sheath assembly was withdrawn from the RVOT along the septum to the mid septal area. The sheath was appropriately to to map the right ventricular aspect of the septum. The decapolar catheter was withdrawn, the sheath flushed again and the screw-in pacing lead placed within the sheath. Further detailed unipolar pace-mapping of the septum was performed and once the appropriate based morphology was obtained on lead V1, the lead was screwed into the septum. The lead was screwed in 4-5 returns at a time while monitoring the current of injury, the pacing impedance changes and the paced QRS morphology. The stimulus to peak of V6 QRS was measured at each step. Once a QR or rSR pattern of paced QRS in lead V1 was obtained, a left bundle signal was sought. Impedance was measured and thresholds were measured. An impedance drop of 100-200 ohms but above 550 ohms was targeted along with an unchanged vector of the current of injury signal. Th e final positioning was based on the QRS morphology in lead V1 and a short stimulus to peak of the V6 QRS of less than 90 ms. The sheath was withdrawn, stability of the pacing lead deep in the septum was confirmed on GÓMEZ and SETSWANA views and the sheath was slipped and an adequate heel was provided for the lead. Unipolar and bipolar electrogram morphology obtained Atrial lead positioned in the right atrial appendage. Sensing, thresholds and impedances measured following positioning and securing the lead in the right atrial appendage Left bundle lead parameters: Paced QRS of right bundle branch block morphology, time to activation time on lead V6 equals 86 ms, time to activation time in lead I is 58 ms in the unipolar pacing mode. In the bipolar pacing mode, time to peak activation in V6 84 ms, in lead 154 ms, terminally notched QRS, left bundle type Underlying rhythm left bundle branch block morphology, time to peak activation in lead V6 56 ms and in lead 163 ms R waves 9.6 mV, pacing impedance 418 ohms and pacing threshold 0.5 V at 0.4 ms. Medtronic model #3830-lead, 69 cm in length Medtronic model #5076-lead, atrial lead parameters implanted in the right atrial appendage stump with excellent current of injury. 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 Very large chest very deep pocket requiring extra time to make the subfascial pocket and closure
--- NOTE | 2025-04-04 13:25 | P.PN ---
Subjective Progress Note Date: 04/04/25 This is a pleasant 74-year-old female with medical history significant for diabetes mellitus, hypertension, hyperlipidemia, renal failure stage III with history of right renal transplant in 2008, coronary artery disease with prior four-vessel CABG in 2009. Patient is also a former smoker. Patient comes into the hospital yesterday evening with complaint of sinus bradycardia. She was discharged from the hospital earlier in the day on April 01. She came in feeling lightheaded and states that she checked her pulse and noted it to be in the 30s. She is admitted to the hospital from March 29 to April 01 she was admitted at that time for chest pain in the middle of her chest was a pressure-like sensatio n without radiation. Resolved spontaneously. Patient has a history of sinus bradycardia and pauses and she is following up with her facing baster with recommendations to undergo permanent pacemaker implantation however has declined this procedure in the past. Cardiology had increased patient's Imdur to 60 mg daily and added Ranexa 500 mg twice daily. Patient was recommended to avoid any AV chucky blocking agents because of the history of bradycardia and pauses. She was discharged home yesterday on the and she came back in because of the bradycardia. On admission patient's heart rate has been 41-37 sinus bradycardia. Blood pressure is 113/72 and she is 96% on room air she is current ly afebrile. Blood work reveals a sodium level of 136 potassium of 5.7, BUN of 42 creatinine of 2.43. Patient received IV insulin, sodium bicarbonate and Lokelma as well as an amp of D50 for the hyperkalemia. Patient is admitted in observation with a cardiology consultation. She is currently scheduled to undergo a stress echocardiogram today. She will continue on cardiac telemetry and further monitoring of the bradycardia. 04/03/2025 Patient evaluated today in follow up on the medical floor she is currently pending permanent pacemaker implantation later this afternoon. Her creatinine remains elevated and need to rule out urinary retention. Ejection fraction is 45% with no pericardial effusion. 04/04/2025 Patient is evaluated in follow-up on the cardiac observation unit. Patient und erwent EP consultation and was recommended to undergo permanent pacemaker implantation and is currently pending. Her blood work today reveals a BUN of 37 creatinine of 1.95 sodium level of 139. She has been continued on normal saline running at 50 mL/h through each of her IV lines. She has been continued on her immunosuppressive therapy. Nephrology has been consulted for the ESME currently pending consultation. REVIEW OF SYSTEMS: CONSTITUTIONAL: No fever, no malaise, no fatigue. HEENT: No recent visual problems or hearing problems. Denied any sore throat. CARDIOVASCULAR: No chest pain, orthopnea, PND, no palpitations, no syncope. PULMONARY: No shortness of breath, no cough, no hemoptysis. GASTROINTESTINAL: No diarrhea, no nausea, no vomiting, no abdominal pain. NEUROLOGICAL: No headaches, no weakness, no numbness. PHYSICAL EXAMINATION: GENERAL: The patient is alert and oriented x3, not in any acute distress. Well developed, well nourished. HEENT: Pupils are round and equally reacting to light. EOMI. No scleral icterus. No conjunctival pallor. Normocephalic, atraumatic. No pharyngeal erythema. No thyromegaly. CARDIOVASCULAR: S1 and S2 present. No murmurs, rubs, or gallops. PULMONARY: Chest is clear to auscultation, no wheezing or crackles. ABDOMEN: Soft, nontender, nondistended, normoactive bowel sounds. No palpable organomegaly. MUSCULOSKELETAL: No joint swelling or deformity. EXTREMITIES: No cyanosis, clubbing, or pedal edema. NEUROLOGICAL: Gross neurological examination did not reveal any focal deficits. SKIN: No rashes. Assessment Chest pain and shortness of breath Dizziness lightheadedness because of the sinus bradycardia History of coronary artery disease with prior CABG Chronic kidney disease with prior right renal transplant; baseline creatinine 1.2 to 1.4. Acute kidney injury Sinusbradycardia Hypertension Hyperlipidemia Diabetes mellitus type 2 Obesity. Plan Cardiology consultation Patient scheduled to undergo permanent pacemaker implantation today and currently down in the CVL undergoing procedure Continue accuchecks ACHS and sliding scale insulin, start lantus 25 mg HS. Pending nephrology consultation Check urinalysis Repeat BMP in the AM PT OT consultation The impression and plan of care has been dictated by Aliza Abel, Nurse Practitioner as directed. Dr. Aleah MD I have performed a history and physical examination and medical decision making of this patient, discussed the same with the dictator, and agree with the dictators assessment and plan as written, documented as a scribe. Based on total visit time, I have performed more than 50% of this visit. Objective - Vital Signs Vital signs: Vital Signs Temp 98.5 F 04/04/25 09:18 Pulse 78 04/04/25 09:18 Resp 16 04/04/25 09:18 BP 132/90 04/04/25 09:18 Pulse Ox 100 04/04/25 09:18 FiO2 Intake & Output 04/03/25 04/04/25 04/04/25 18:59 06:59 18:59 Intake Total 175 Output Total 1000 Balance 175 -1000 Weight 104.3 kg Intake: Oral 175 Output: Urine 1000 Other: Voiding Method Toilet Toilet # Voids 2 1 - Labs CBC & Chem 7: 04/03/25 08:58 04/04/25 06:05 Labs: Abnormal Lab Results - Last 24 Hours (Table) 04/03/25 04/03/25 04/03/25 Range/Units 08:58 08:58 17:04 Chloride (98-107) mmol/L BUN 42 H (7-17) mg/dL Creatinine 2.32 H (0.52-1.04) mg/dL Glucose 133 H (74-99) mg/dL POC Glucose (mg/dL) 120 H (70-110) mg/dL Hemoglobin A1c 6.7 H (<=6.0) % Total Protein 6.2 L (6.3-8.2) g/dL Albumin 3.4 L (3.5-5.0) g/dL 04/03/25 04/04/25 Range/Units 20:16 06:05 Chloride 108 H (98-107) mmol/L BUN 37 H (7-17) mg/dL Creatinine 1.95 H (0.52-1.04) mg/dL Glucose 109 H (74-99) mg/dL POC Glucose (mg/dL) 176 H (70-110) mg/dL Hemoglobin A1c (<=6.0) % Total Protein (6.3-8.2) g/dL Albumin (3.5-5.0) g/dL Assessment and Plan Time with Patient: Less than 30
[2025-04-04 13:41] LABS: Glucose,Whole Blood 118 mg/dL (70-110)
[2025-04-04] MEDS: METOPROLOL SUCCINATE (ER) 100 MG TAB.ER.24H PO SCH (15:18)
[2025-04-04 16:19] LABS: Glucose,Whole Blood 103 mg/dL (70-110)
[2025-04-04] MEDS: ACETAMINOPHEN TAB 325 MG TAB PO PRN (18:40)
[2025-04-04 20:38] LABS: Glucose,Whole Blood 117 mg/dL (70-110)
[2025-04-04] MEDS: ACETAMINOPHEN IV (For NPO) 1,000 MG in EMPTY BAG 1 BAG IVPB ONE (20:48)
[2025-04-05 00:43] LABS: Appearance,Urine Clear (Clear); Bilirubin,Urine Negative (Negative); Blood,Urine Negative (Negative); Color,Urine Light Yellow; Glucose,Urine (UA) 4+ (Negative); Ketones,Urine Negative (Negative); Leukocyte Esterase,Urine Negative (Negative); Nitrite,Urine Negative (Negative); PH, Urine 5.5 (5.0-8.0); Protein,Urine Negative (Negative); Specific Gravity,Urine 1.019 (1.001-1.035); Urobilinogen,Urine <2.0 mg/dL (<2.0)
[2025-04-05 04:42] LABS: African American GFR (CKD) 30 (>60 ml/min/1.73 sqM); Anion Gap 5 mmol/L; Blood Urea Nitrogen 33 mg/dL (7-17); Calcium 8.5 mg/dL (8.4-10.2); Carbon Dioxide 23 mmol/L (22-30); Chloride 110 mmol/L (98-107); Glucose 85 mg/dL (74-99); Magnesium 1.8 mg/dL (1.6-2.3); Non-African American GFR(CKD) 26 (>60 ml/min/1.73 sqM); Potassium 4.9 mmol/L (3.5-5.1); Sodium 138 mmol/L (137-145)
[2025-04-05 06:19] LABS: Glucose,Whole Blood 86 mg/dL (70-110)
--- NOTE | 2025-04-05 07:44 | XR ---
EXAMINATION TYPE: XR chest 2V DATE OF EXAM: 04/05/2025 6:12 AM COMPARISON: 04/01/2025 CLINICAL INDICATION: Female, 74 years old with history of Lead placement check, , TECHNIQUE: PA and lateral views FINDINGS: Left anterior chest wall pacemaker generator with right atrial and right ventricular leads. Median st ernotomy wires are present with post-CABG clips. Heart borderline in size. Mild hyperinflation. No ap preciable pneumothorax. There appears be a trace pleural effusion on the lateral view. IMPRESSION: 1. Left anterior chest wall pacemaker generator with right atrial and right ventricular leads. No lesley reciable pneumothorax. 2. Suspect background COPD. 3. Trace bilateral pleural effusions and borderline heart size. [facility], , 04/05/2025 7:42 AM
[2025-04-05 10:07] VITALS: BP 157/78; PULSE 74; RESP 17; TEMP 98
--- NOTE | 2025-04-05 11:35 | US ---
EXAMINATION TYPE: US kidneys/renal and bladder DATE OF EXAM: 04/05/2025 COMPARISON: NONE CLINICAL INDICATION: Female, 74 years old with history of ESME, hx of renal transplant; assess for ESME , transplant 16 years ago, multiple US showed atrophic [place] renals TECHNIQUE: Grayscale imaging of the bilateral kidneys and urinary bladder: FINDINGS: EXAM MEASUREMENTS: Right Kidney: Severely atrophic and echogenic, not well visualized. No hydronephrosis. Left Kidney: not able to view, patient has arm in sling from recent pacemaker placement Bladder: not distended Right pelvic transplant = 11.5 x 4.9 x 5.7cm, no hydronephrosis or masses seen IMPRESSION: 1. Known severely atrophic, end-stage [place] right kidney. Unable to visualize the left kidney due to patient condition. 2. Right pelvic transplant kidney shows no hydronephrosis or other discrete sonographic abnormality. [facility], , 04/05/2025 11:32 AM
[2025-04-05 11:54] LABS: Glucose,Whole Blood 100 mg/dL (70-110)
--- NOTE | 2025-04-05 12:04 | P.NPCON ---
History of Present Illness - Reason for Consult Consult date: 04/05/25 - History of Present Illness Patient consulted for ESME on CKD status post history of right renal living- related transplant in 2008. She has a medical history significant for diabetes mellitus, hypertension, hyperlipidemia, renal failure stage III with history of right renal living- related transplant done in 2008, coronary artery disease with prior four-vessel CABG in 2009. Patient is also a former smoker. Patient comes into the hospital with lightheadedness and admitted on 04/01/2025 for symptomatic sinus bradycardia. HR has been in the 30s. Creatinine on admission 2.43. Creatinine today 1.88. Previous baseline creatinine 1.4-1.5. Patient denies any recent contrast or chronic NSAID use. Patient denies any fever, chills, nausea, vomiting, diarrhea. EXAM: Vital signs reviewed. GENERAL: Patient is awake oriented, comfortable in bed. CARDIO: Regular rate rhythm. PULM: No audible rhonchi or wheezes. ABD: Non-tender to palpation EXT: No edema. Past Medical History Past Medical History: Coronary Artery Disease (CAD), Diabetes Mellitus, Eye Disorder, Hyperlipidemia, Hypertension, Myocardial Infarction ([place]), Renal Disease, Skin Disorder Additional Past Medical History / Comment(s): R eye glaucoma, retinal bleed and little vision, renal failure Stage 3 - R renal transplant in 2008, UTIs with sepsis, Last Myocardial Infarction Date:: 2009 History of Any Multi-Drug Resistant Organisms: None Reported Past Surgical History: Appendectomy, Cholecystectomy, Coronary Bypass/CABG, Heart Catheterization, Hernia Repair, Hysterectomy Additional Past Surgical History / Comment(s): 2009 right kidney transplant, 4 vessel CABG in 2009, umbilical hernia repair, colonoscopies, silvia cataract removed, R eye laser surgeries. Past Anesthesia/Blood Transfusion Reactions: No Reported Reaction Additional Past Anesthesia/Blood Transfusion Reaction / Comment(s): unknown Past Psychological History: No Psychological Hx Reported Additional Psychological History / Comment(s): Pt resides with her adult grandson who has autism but is high functioning. Pt does not drive, she uses the bus system and daughter's friend for transportation. She ambulates with a cane. Smoking Status: Former smoker Past Alcohol Use History: None Reported Additional Past Alcohol Use History / Comment(s): Pt started smoking as a teen and quit in 2001. Past Drug Use History: None Reported - Past Family History Brother(s) Family Medical History: Cancer Additional Family Medical History / Comment(s): one brother had kidney cancer. one brother had prostate cancer Mother Family Medical History: Coronary Artery Disease (CAD) Additional Family Medical History / Comment(s): mom had heart disease Father Family Medical History: Cancer Additional Family Medical History / Comment(s): lung and pancreatic cancer Medications and Allergies Home Medications Medication Instructions Recorded Confirmed Type Tacrolimus [Prograf] 2 mg PO DAILY 09/13/17 04/02/25 History Isosorbide Mononitrate ER [Imdur] 30 mg PO DAILY 11/26/17 04/02/25 History Insulin Glargine,Hum.rec.anlog 44 units SQ HS 04/18/20 04/02/25 History [Toujeo Solostar] Magnesium Oxide 400 mg PO DAILY 04/18/20 04/02/25 History Tacrolimus [Prograf] 1 mg PO HS 04/18/20 04/02/25 History Aspirin 81 mg PO DAILY #30 chew 04/22/20 04/02/25 Rx Atorvastatin [Lipitor] 40 mg PO HS #30 tab 04/22/20 04/02/25 Rx Cranberry Fruit Extract [Cranberry] 1,500 mg PO DAILY 06/21/24 04/02/25 History INSULIN ASPART (NovoLOG) [NovoLOG See Protocol SQ AC-TID 06/21/24 04/02/25 His tory (formulary)] Ascorbic Acid [Vitamin C] 1,000 mg PO DAILY 11/15/24 04/02/25 History Cholecalciferol (Vitamin D3) 50 mcg PO BID 11/15/24 04/02/25 History [Vitamin D3 (50 Mcg = 2000 Iu)] Dapagliflozin Propanediol [Farxiga] 10 mg PO DAILY 03/30/25 04/02/25 History Mycophenolate Sodium [Mycophenolic 360 mg PO BID 03/30/25 04/02/25 History Acid] Ranolazine [Ranexa] 500 mg PO Q12HR 30 Days #60 tab 04/01/25 04/02/25 Rx amLODIPine [Norvasc] 5 mg PO DAILY 30 Days #30 tab 04/01/25 04/02/25 Rx Acetaminophen Tab [Tylenol] 650 mg PO Q6HR PRN tab 04/05/25 Rx Metoprolol Succinate (ER) [Toprol 100 mg PO DAILY #30 tab 04/05/25 Rx XL] hydrALAZINE HCL [Apresoline] 75 mg PO TID 30 Days #225 tab 04/05/25 Rx Allergies Allergy/AdvReac Type Severity Reaction Status Date / Time metoclopramide HCl Allergy Unknown Verified 04/04/25 09:27 [From Reglan] adhesive tape AdvReac tears skin Verified 04/04/25 09:27 grapefruit [Grapefruit] AdvReac reaction Verified 04/04/25 09:27 with simvastatin ibuprofen AdvReac kidney Verified 04/04/25 09:27 failure/transplant ropinirole [From Requip] AdvReac LEG CRAMPS Verified 04/04/25 09:27 nupur Allergy Rash/Hives Uncoded 04/04/25 09:27 Physical Exam Vitals: Vital Signs Temp Pulse Resp BP Pulse Ox 04/05/25 01:13 97.9 F 71 18 151/69 96 04/04/25 19:00 97.8 F 71 18 159/73 97 04/04/25 16:41 71 121/70 04/04/25 15:00 66 125/65 91 L Intake and Output 04/04/25 04/05/25 04/05/25 22:59 06:59 14:59 Intake Total 200 300 170 Balance 200 300 170 Intake: Oral 200 170 Tube Feeding 300 Other: Voiding Method Toilet Toilet # Voids 1 Results - Lab Results Most recent lab results Calcium 8.5 mg/dL (8.4-10.2) 04/05/25 03:44 Magnesium 1.8 mg/dL (1.6-2.3) 04/05/25 03:44 04/03/25 08:58 04/05/25 03:44 Assessment and Plan Assessment: ESME nonoliguric likely secondary to hypovolemia/volume depletion, renal US showing no hydronephrosis, UA benign 4+ glucose d/t SGLT-2. Improving with IV hydration. 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 UA showing no proteinuria. Maintained on SGLT-2 inhibitor. Hypertension Normocytic anemia, no acute bleed. Hgb today 11.2, previous baseline Hgb 12.1 Symptomatic bradycardia, s/p pacemaker placement. Potassium 5.7 on admission. Patient has been bradycardic with normal potassium levels. Plan: Continue tacrolimus and myfortic. Check tacrolimus troph tomorow morning prior to AM dose. Continue Farxiga 10 mg PO daily Continue Hydralazine 75 mg PO TID and amlodipine 5 mg PO daily Avoid nephrotoxic medications Monitor electrolytes and correct as needed Monitor glucose levels. Repeat BMP, magnesium. Patient is seen and examined. Agree with resident's findings assessment and plan.
[2025-04-05] MEDS: FUROSEMIDE 10 MG/ML 4 ML VIAL IV STA (13:07)
--- NOTE | 2025-04-05 17:06 | P.PN ---
Subjective Progress Note Date: 04/05/25 HISTORY OF PRESENTING ILLNESS This is a pleasant 74-year-old female past medical history significant for coronary artery disease status post bypass grafting, left bundle branch block with bradycardia, kidney failure status post renal transplant, hypertension, diabetes mellitus, dyslipidemia, former nicotine dependence, obesity and chronic systolic heart failure. She follows in the office with Dr. Pandey. We have been asked to see in consultation for bradycardia. Patient was just discharged from the hospital on the weekend and presented back with weakness and heart rate in the 30s at home. EKG on arrival reveals left bundle branch block heart rate of 40. She had previously discussed with Dr. Pandey in the office the need for pacemaker secondary to 3.1-second pauses with episodes of nonsustained VT however the patient had declined consistently. A limited echo was done March 30 revealing EF 30 to 35% with severely increased septal wall thickness. She is seen and examined resting comfortably in bed in no acute distress. Overall concern is for weakness. Laboratory data reviewed, he moglobin 11.8, platelets 189, sodium 136, potassium 5.7, creatinine 2.43, troponin negative x 3. 04/03/2025 Patient seen and examined resting comfortably in bed in no acute distress. She was seen yesterday by Dr. Gao with plans for biventricular pacemaker implantation today. Blood pressure 165/70 heart rate 74 afebrile maintaining oxygen saturation on room air. 04/04/2025 Patient seen and examined sitting up at bedside. She is preparing to go for her device this morning. Blood pressure 132/90 heart rate 78 afebrile maintaining oxygen saturation on room air. 04/05/2025 Status post permanent pacemaker dual-chamber done yesterday. Chest x-ray reviewed no signs of pneumothorax or any significant pericardial effusion. Mild increase interstitial marking for which I will give her 1 dose of Lasix prior to discharge. Blood pressure heart rate stable, device interrogation was within a cceptable ranges PHYSICAL EXAMINATION Blood pressure 110/45 heart rate 42 afebrile and maintaining oxygen saturation on room air. CONSTITUTIONAL: No apparent distress. HEENT: Head is normocephalic. Pupils are equal, round. Sclerae anicteric. Mucous membranes of the mouth are moist. No JVD. No carotid bruit. CHEST EXAMINATION: Lungs are clear to auscultation. No chest wall tenderness is noted on palpation or with deep breathing. HEART EXAMINATION: Regular rate and rhythm. S1, S2 heard. No murmurs, gallops or rub. ABDOMEN: Soft, nontender. EXTREMITIES: 2+ peripheral pulses, no lower extremity edema and no calf tenderness. NEUROLOGIC EXAMINATION: Patient is awake, alert and oriented x3. ASSESSMENT Bradycardia, symptomatic Left bundle branch block Systolic heart failure, chronic. Clinically look euvolemic. Coronary artery disease status post bypass grafting Hypertension Dyslipidemia Diabetes mellitus Chronic renal failure status post kidney transplant 2008 PLAN Okay to be discharged from cardiac standpoint Discharge instructions for pacemaker care and follow-up within 1 week in the device office Thereafter follow-up with primary cattle sorter Objective - Vital Signs Vital signs: Vital Signs Temp 98.0 F 04/05/25 07:00 Pulse 74 04/05/25 07:00 Resp 17 04/05/25 07:00 BP 157/78 04/05/25 07:00 Pulse Ox 96 04/05/25 07:00 FiO2 Intake & Output 04/04/25 04/05/25 04/05/25 18:59 06:59 18:59 Intake Total 250 300 370 Balance 250 300 370 Weight 104.3 kg Intake: IV 50 Oral 200 370 Tube Feeding 300 Other: Voiding Method Toilet Toilet # Voids 1 - Labs CBC & Chem 7: 04/03/25 08:58 04/05/25 03:44 Labs: Abnormal Lab Results - Last 24 Hours (Table) 04/04/25 04/05/25 04/05/25 Range/Units 20:37 00:25 03:44 Chloride 110 H (98-107) mmol/L BUN 33 H (7-17) mg/dL Creatinine 1.88 H (0.52-1.04) mg/dL POC Glucose (mg/dL) 117 H (70-110) mg/dL Urine Glucose (UA) 4+ H (Negative)
== END 2025-04-05 15:21 | disposition home or self-care (01) | DRG 243 ==
LOC: EC 20:57 → 6NMEDSUR 04-02 01:35 → 1SOBS 04-02 06:33
PROVIDERS: ADMIT Hospitalist; ATTEND Hospitalist
PROC: 02H63JZ Insertion of Pacemaker Lead into Right Atrium, Percutaneous Approach (ICD-10-PCS; principal; 2025-04-04 11:00)
PROC: 0JH606Z Insertion of Pacemaker, Dual Chamber into Chest Subcutaneous Tissue and Fascia, Open Approach (ICD-10-PCS; principal; 2025-04-04 11:00)
PROC: 02HK3JZ Insertion of Pacemaker Lead into Right Ventricle, Percutaneous Approach (ICD-10-PCS; principal; 2025-04-04 11:00)
DX: R00.1 Bradycardia, unspecified (principal); I13.0 Hypertensive heart and chronic kidney disease with heart failure and stage 1 through stage 4 chronic kidney disease, or unspecified chronic kidney disease; I50.22 Chronic systolic (congestive) heart failure; N17.9 Acute kidney failure, unspecified; D64.9 Anemia, unspecified; E11.22 Type 2 diabetes mellitus with diabetic chronic kidney disease; E66.9 Obesity, unspecified; E78.5 Hyperlipidemia, unspecified; Z94.0 Kidney transplant status; N18.30 Chronic kidney disease, stage 3 unspecified; I44.7 Left bundle-branch block, unspecified; Z68.37 Body mass index [BMI] 37.0-37.9, adult; H40.9 Unspecified glaucoma; E86.0 Dehydration; E86.1 Hypovolemia; E87.5 Hyperkalemia; F41.9 Anxiety disorder, unspecified; I25.10 Atherosclerotic heart disease of native coronary artery without angina pectoris; I25.2 Old myocardial infarction; Z79.82 Long term (current) use of aspirin; Z79.84 Long term (current) use of oral hypoglycemic drugs; Z79.899 Other long term (current) drug therapy; Z87.891 Personal history of nicotine dependence; Z95.1 Presence of aortocoronary bypass graft; Z87.440 Personal history of urinary (tract) infections
CPT/HCPCS: 33208; 36415; 71046; 76770; 80048; 80053; 81003; 83036; 83605; 83735; 84100; 84443; 84484; 85025; 85610; 85730; 86850; 86900; 86901; 93005; 93308; 96361; 96374; 96375; 99291

== ENCOUNTER 2025-04-18 11:09 | Observation (INO) | payer MEDICARE ==
--- NOTE | 2025-04-18 11:56 | ED ---
General Adult HPI - General Chief complaint: Shortness of Breath Stated complaint: SOB Time Seen by Provider: 04/18/25 11:48 Source: patient Mode of arrival: ambulatory Limitations: no limitations - History of Present Illness Initial comments: Dictation was produced using [employer] dictation software. please excuse any grammatical, word or spelling errors. Chief Complaint: 74-year-old female presents to the emergency department with dyspnea History of Present Illness: Patient 74-year-old female 2 weeks ago had a pacemaker placed. Patient complaining of dyspnea. She states that for the last 2 days she has had worsening dyspnea. Today started having some diarrhea. No chest pain. No fever chills or night sweats. Denies any other symptoms. Den ies any cough The ROS documented in this emergency department record has been reviewed and confirmed by me. Those systems with pertinent positive or negative responses have been documented in the HPI. All other systems are other negative and/or noncontributory. - Related Data Home Medications Medication Instructions Recorded Confirmed Tacrolimus [Prograf] 2 mg PO DAILY 09/13/17 04/02/25 Isosorbide Mononitrate ER [Imdur] 30 mg PO DAILY 11/26/17 04/02/25 Insulin Glargine,Hum.rec.anlog 44 units SQ HS 04/18/20 04/02/25 [Brooke Ly] Magnesium Oxide 400 mg PO DAILY 04/18/20 04/02/25 Tacrolimus [Prograf] 1 mg PO HS 04/18/20 04/02/25 Cranberry Fruit Extract [Cranberry] 1,500 mg PO DAILY 06/21/24 04/02/25 INSULIN ASPART (NovoLOG) [NovoLOG See Protocol SQ AC-TID 06/21/24 04/02/25 (formulary)] Ascorbic Acid [Vitamin C] 1,000 mg PO DAILY 11/15/24 04/02/25 Cholecalciferol (Vitamin D3) 50 mcg PO BID 11/15/24 04/02/25 [Vitamin D3 (50 Mcg = 2000 Iu)] Dapagliflozin Propanediol [Farxiga] 10 mg PO DAILY 03/30/25 04/02/25 Mycophenolate Sodium [Mycophenolic 360 mg PO BID 03/30/25 04/02/25 Acid] Previous Rx's Medication Instructions Recorded Aspirin 81 mg PO DAILY #30 chew 04/22/20 Atorvastatin [Lipitor] 40 mg PO HS #30 tab 04/22/20 Ranolazine [Ranexa] 500 mg PO Q12HR 30 Days #60 tab 04/01/25 amLODIPine [Norvasc] 5 mg PO DAILY 30 Days #30 tab 04/01/25 Acetaminophen Tab [Tylenol] 650 mg PO Q6HR PRN tab 04/05/25 Metoprolol Succinate (ER) [Toprol 100 mg PO DAILY #30 tab 04/05/25 XL] hydrALAZINE HCL [Apresoline] 75 mg PO TID 30 Days #225 tab 04/05/25 Allergies Allergy/AdvReac Type Severity Reaction Status Date / Time metoclopramide HCl Allergy Unknown Verified 04/04/25 09:27 [From Reglan] adhesive tape AdvReac tears skin Verified 04/04/25 09:27 grapefruit [Grapefruit] AdvReac reaction Verified 04/04/25 09:27 with simvastatin ibuprofen AdvReac kidney Verified 04/04/25 09:27 failure/transplant ropinirole [From Requip] AdvReac LEG CRAMPS Verified 04/04/25 09:27 nupur Allergy Rash/Hives Uncoded 04/04/25 09:27 Review of Systems ROS Statement: Those systems with pertinent positive or pertinent negative responses have been documented in the HPI. ROS Other: All systems not noted in ROS Statement are negative. Past Medical History Past Medical History: Coronary Artery Disease (CAD), Diabetes Mellitus, Eye Disorder, Hyperlipidemia, Hypertension, Myocardial Infarction ([place]), Renal Disease, Skin Disorder Additional Past Medical History / Comment(s): R eye glaucoma, retinal bleed and little vision, renal failure Stage 3 - R renal transplant in 2008, UTIs with sepsis, Last Myocardial Infarction Date:: 2009 History of Any Multi-Drug Resistant Organisms: None Reported Past Surgical History: Appendectomy, Cholecystectomy, Coronary Bypass/CABG, Heart Catheterization, Hernia Repair, Hysterectomy, Pacemaker Additional Past Surgical History / Comment(s): 2009 right kidney transplant, 4 vessel CABG in 2009, umbilical hernia repair, colonoscopies, silvia cataract removed, R eye laser surgeries. Past Anesthesia/Blood Transfusion Reactions: No Reported Reaction Additional Past Anesthesia/Blood Transfusion Reaction / Comment(s): unknown Past Psychological History: No Psychological Hx Reported Smoking Status: Former smoker Past Alcohol Use History: None Reported Past Drug Use History: None Reported - Past Family History Brother(s) Family Medical History: Cancer Additional Family Medical History / Comment(s): one brother had kidney cancer. one brother had prostate cancer Mother Family Medical History: Coronary Artery Disease (CAD) Additional Family Medical History / Comment(s): mom had heart disease Father Family Medical History: Cancer Additional Family Medical History / Comment(s): lung and pancreatic cancer General Exam - General Exam Comments Initial Comments: PHYSICAL EXAM: General Impression: Alert and oriented x3, not in acute distress HEENT: Normocephalic atraumatic, extra-ocular movements intact, pupils equal and reactive to light bilaterally, mucous membranes moist. Cardiovascular: Heart regular rate and rhythm Chest: Able to complete full sentences, no retractions, no tachypnea mild diffuse lung auscultatory crackles Abdomen: abdomen soft, non-tender, non-distended, no organomegaly Musculoskeletal: Pulses present and equal in all extremities, no peripheral edema Motor: no focal deficits noted Neurological: CN II-XII grossly intact, no focal motor or sensory deficits noted Skin: Intact with no visualized rashes Psych: Normal affect and mood Limitations: no limitations Course Vital Signs 04/18/25 11:25 Temperature 97.9 F Pulse Rate 62 Respiratory 16 Rate Blood Pressure 152/65 O2 Sat by Pulse 95 Oximetry EKG Findings - EKG Comments: EKG Findings:: My EKG interpretation: Ventricular rate 61, atrial ventricular paced rhythm, AL interval 175, QRS 126, QTc 412. No AL prolongation, no QTC prolongation, no ST or T-wave changes noted. Overall, this EKG is unremarkable Medical Decision Making - Medical Decision Making Was pt. sent in by a medical professional or institution (, PA, BACKGROUND INVESTIGATOR, urgent care, hospital, or retirement...) When possible be specific @ -No Did you speak to anyone other than the patient for history (EMS, parent, family, police, friend...)? What history was obtained from this source @ -No Did you review nursing and triage notes (agree or disagree)? Why? @ -I reviewed and agree with nursing and triage notes Were old charts reviewed (outside hosp., previous admission, EMS record, old EKG, old radiological studies, urgent care reports/EKG's, retirement records)? Report findings @ -No old charts were reviewed Differential Diagnosis (chest pain, altered mental status, abdominal pain women, abdominal pain men, vaginal bleeding, musculoskeletal, weakness, fever, dyspnea, syncope, headache, dizziness, GI bleed, back pain, seizure, CVA, palpatations, mental health)? @ -Differential Dyspnea: Coronary syndrome, arrhythmia, tamponade, asthma, COPD, pulmonary embolism, pneumonia, pneumothorax, pulmonary effusion, anaphylaxis, diabetic ketoacidosis, flailed chest, pulmonary contusion, diaphragmatic rupture, anemia, neuromuscular, this is not meant to be an all-inclusive list. EKG interpreted by me (3pts min.). @ -See above X-rays interpreted by me (1pt min.). @ -Chest x-ray shows heart failure CT interpreted by me (1pt min.). @ -None done U/S interpreted by me (1pt. min.). @ -None done What testing was considered but not performed or refused? (CT, X-rays, U/S, labs)? Why? @ -None What meds were considered but not given or refused? Why? @ -None Was smoking cessation discussed for >3mins.? @ -No Were there social determinants of health that impacted care today? How? (Homelessness, low income, unemployed, alcoholism, drug addiction, transportation, low edu. Level, literacy, decrease access to med. care, fci, rehab)? @ -No Was there de-escalation of care discussed even if they declined (Discuss DNR or withdrawal of care, Hospice)? DNR status @ -No What co-morbidities impacted this encounter? (DM, HTN, Smoking, COPD, CAD, Cancer, CVA, ARF, Chemo, Hep., AIDS, mental health diagnosis, sleep apnea, morbid obesity)? @ -Renal transplant Was patient admitted / discharged? Hospital course, mention meds given and [place], prescriptions, significant lab abnormalities, going to OR and other pertinent info. @ -74-year-old female presents with dyspnea. She does report an exertional component. Bilateral crackles on physical examination. Vital signs otherwise unremarkable nonhypoxic not dyspneic appearing at the bedside. Laboratory evaluation obtained elevated BNP and renal function. Elevated D-dimer pending n [facility] med scan. Chest x-ray shows heart failure. Patient given Lasix. Case discussed with hospitalist for admission Did you discuss the management of the patient with other professionals (professionals i.e. , PA, BACKGROUND INVESTIGATOR, lab, RT, psych nurse, social media intern, rehabilitation clerk, teacher, geological technical officer, egg caser)? Give summary @ -See above Was critical care preformed (if so, how long)? @ -No Undiagnosed new problem with uncertain prognosis? @ -No Drug Therapy requiring intensive monitoring for toxicity (Heparin, Nitro, Insulin, Cardizem)? @ -No Were any procedures done? @ -No Diagnosis/symptom? Acute, or Chronic, or Acute on Chronic? Uncomplicated (without systemic symptoms) or Complicated (systemic symptoms)? @ -Dyspnea, heart failure Side effects of treatment? @ -No Exacerbation, Progression, or Severe Exacerbation? @ -No Poses a threat to life or bodily function? How? (Chest pain, [place], [place], pneumonia, PE, COPD, DKA, ARF, appy, cholecystitis, CVA, Diverticulitis, Homicidal, Suicidal, threat to staff... and all critical care pts) @ -yes - Lab Data Result diagrams: 04/18/25 11:53 04/18/25 11:53 Lab Results 04/18/25 04/18/25 04/18/25 Range/Units 11:53 11:53 11:53 WBC 5.74 (4.50-10.00) 10*3/uL RBC 3.81 L (4.10-5.20) 10*6/uL Hgb 10.5 L (12.0-15.0) g/dL Hct 32.7 L (37.2-46.3) % MCV 85.8 (80.0-97.0) fL MCH 27.6 (27.0-32.0) pg MCHC 32.1 (32.0-37.0) g/dL Plt Count 185 (140-440) 10*3/uL MPV 10.4 (9.5-12.2) fL Immature Gran % (Auto) 0.3 % Neutrophils % 73.9 % Lymphocytes % 13.6 % Monocytes % 8.5 % Eosinophils % 2.8 % Basophils % 0.9 % Immature Gran # 0.02 (0.00-0.04) 10*3/uL Neutrophils # 4.24 (1.80-7.70) 10*3/uL Lymphocytes # 0.78 L (0.90-5.00) 10*3/uL Monocytes # 0.49 (0.20-1.00) 10*3/uL Eosinophils # 0.16 (0.04-0.35) 10*3/uL Basophils # 0.05 (0.00-0.10) 10*3/uL PT (10.0-12.5) sec INR (<1.2) APTT (22.0-30.0) sec D-Dimer (<0.60) mg/L FEU Sodium 131 L (137-145) mmol/L Potassium 5.8 H (3.5-5.1) mmol/L Chloride 99 (98-107) mmol/L Carbon Dioxide 22 (22-30) mmol/L Anion Gap 10 mmol/L BUN 50 H (7-17) mg/dL Creatinine 2.34 H (0.52-1.04) mg/dL Est GFR (CKD-EPI)AfAm 23 (>60 ml/min/1.73 sqM) Est GFR (CKD-EPI)NonAf 20 (>60 ml/min/1.73 sqM) Glucose 191 H (74-99) mg/dL Plasma Lactic Acid Silvino 0.7 (0.7-2.0) mmol/L Calcium 8.8 (8.4-10.2) mg/dL Magnesium 2.3 (1.6-2.3) mg/dL Total Bilirubin 0.7 (0.2-1.3) mg/dL AST 23 (14-36) U/L ALT 12 (4-34) U/L Alkaline Phosphatase 87 (38-126) U/L Troponin I (0.000-0.034) ng/mL NT-Pro-B Natriuret Pep 07227 pg/mL Total Protein 6.5 (6.3-8.2) g/dL Albumin 3.4 L (3.5-5.0) g/dL 04/18/25 04/18/25 Range/Units 11:53 12:29 WBC (4.50-10.00) 10*3/uL RBC (4.10-5.20) 10*6/uL Hgb (12.0-15.0) g/dL Hct (37.2-46.3) % MCV (80.0-97.0) fL MCH (27.0-32.0) pg MCHC (32.0-37.0) g/dL Plt Count (140-440) 10*3/uL MPV (9.5-12.2) fL Immature Gran % (Auto) % Neutrophils % % Lymphocytes % % Monocytes % % Eosinophils % % Basophils % % Immature Gran # (0.00-0.04) 10*3/uL Neutrophils # (1.80-7.70) 10*3/uL Lymphocytes # (0.90-5.00) 10*3/uL Monocytes # (0.20-1.00) 10*3/uL Eosinophils # (0.04-0.35) 10*3/uL Basophils # (0.00-0.10) 10*3/uL PT 11.6 (10.0-12.5) sec INR 1.1 (<1.2) APTT 24.2 (22.0-30.0) sec D-Dimer 1.41 H (<0.60) mg/L FEU Sodium (137-145) mmol/L Potassium (3.5-5.1) mmol/L Chloride (98-107) mmol/L Carbon Dioxide (22-30) mmol/L Anion Gap mmol/L BUN (7-17) mg/dL Creatinine (0.52-1.04) mg/dL Est GFR (CKD-EPI)AfAm (>60 ml/min/1.73 sqM) Est GFR (CKD-EPI)NonAf (>60 ml/min/1.73 sqM) Glucose (74-99) mg/dL Plasma Lactic Acid Silvino (0.7-2.0) mmol/L Calcium (8.4-10.2) mg/dL Magnesium (1.6-2.3) mg/dL Total Bilirubin (0.2-1.3) mg/dL AST (14-36) U/L ALT (4-34) U/L Alkaline Phosphatase (38-126) U/L Troponin I 0.017 (0.000-0.034) ng/mL NT-Pro-B Natriuret Pep pg/mL Total Protein (6.3-8.2) g/dL Albumin (3.5-5.0) g/dL Disposition Clinical Impression: Dyspnea Disposition: ADMITTED IP TO THIS HOSP Condition: Fair Referrals: Joel Wong DO [Primary Care Provider] - 1-2 days Decision Time: 13:40
[2025-04-18 12:05] LABS: Basophils # (A) 0.05 10*3/uL (0.00-0.10); Basophils % (A) 0.9 %; Eosinophils # (A) 0.16 10*3/uL (0.04-0.35); Eosinophils % (A) 2.8 %; HCT 32.7 % (37.2-46.3); HGB 10.5 g/dL (12.0-15.0); Lymphocytes # (A) 0.78 10*3/uL (0.90-5.00); Lymphocytes % (A) 13.6 %; MCH 27.6 pg (27.0-32.0); MCHC 32.1 g/dL (32.0-37.0); MCV 85.8 fL (80.0-97.0); Monocytes # (A) 0.49 10*3/uL (0.20-1.00); Monocytes % (A) 8.5 %; Neutrophils # (A) 4.24 10*3/uL (1.80-7.70); Neutrophils % (A) 73.9 %; Platelet Count 185 10*3/uL (140-440); RBC 3.81 10*6/uL (4.10-5.20); RDW 13.8 % (11.5-14.5); WBC 5.74 10*3/uL (4.50-10.00)
[2025-04-18 12:20] LABS: ALT 12 U/L (4-34); African American GFR (CKD) 23 (>60 ml/min/1.73 sqM); Albumin 3.4 g/dL (3.5-5.0); Anion Gap 10 mmol/L; Blood Urea Nitrogen 50 mg/dL (7-17); Calcium 8.8 mg/dL (8.4-10.2); Carbon Dioxide 22 mmol/L (22-30); Chloride 99 mmol/L (98-107); Glucose 191 mg/dL (74-99); Non-African American GFR(CKD) 20 (>60 ml/min/1.73 sqM); Sodium 131 mmol/L (137-145); Total Protein 6.5 g/dL (6.3-8.2)
--- NOTE | 2025-04-18 12:22 | XR ---
EXAMINATION TYPE: XR chest 2V DATE OF EXAM: 04/18/2025 12:16 PM COMPARISON: Multiple radiographs, with the most recent on 04/05/2025 TECHNIQUE: XR chest 2V Frontal and lateral views of the chest. CLINICAL INDICATION:Female, 74 years old with history of difficulty breathing; FINDINGS: Lungs/Pleura: There is no evidence of focal consolidation or pneumothorax. Trace bilateral pleural ef fusions. Mild hyperinflation. Pulmonary vascularity: Chronic central pulmonary vascular congestion. Heart/mediastinum: Cardiomediastinal silhouette is enlarged and stable. Atherosclerotic calcificatio ns are seen in the aorta. Two lead cardiac conduction device overlying the left hemithorax with lead tips projecting over the right ventricle and right atrium. Musculoskeletal: No acute osseous pathology. Midline sternotomy wires are noted and stable. IMPRESSION: 1. Cardiomegaly with trace bilateral pleural effusions. 2. Suspect background COPD. [facility], , 04/18/2025 12:19 PM
[2025-04-18 12:26] LABS: AST 23 U/L (14-36); Alkaline Phosphatase 87 U/L (38-126); Magnesium 2.3 mg/dL (1.6-2.3); Potassium 5.8 mmol/L (3.5-5.1)
[2025-04-18 12:28] LABS: NT-Pro-B-Type Natriuretic Pept 21200 pg/mL
[2025-04-18 13:13] LABS: INR 1.1 (<1.2); Partial Thromboplastin Time 24.2 sec (22.0-30.0); Prothrombin Time 11.6 sec (10.0-12.5)
[2025-04-18] MEDS: FUROSEMIDE 10 MG/ML 4 ML VIAL IV STA (14:05)
[2025-04-18] MEDS: ENOXAPARIN 120 MG/0.8 ML SYRINGE SQ STA (14:08)
[2025-04-18] MEDS ORDERED: ACETAMINOPHEN TAB 325 MG TAB PO PRN (14:40)
--- NOTE | 2025-04-18 14:40 | P.HPIM ---
History of Present Illness Patient is a pleasant 74 years old female with past medical history of multiple medical problems as below. Presents because of shortness of breath Patient also complaining from paroxysmal nocturnal dyspnea and orthopnea She denies chest pain. She has chronic cough and chronic phlegm which is clear She is complains from more exertional dyspnea for any distance she walks. She checked her home oxygen at home it was 81%. She is not on oxygen at home. Although she denies any GI surgery or symptom. No headache dizziness weakness numbness No smoking alcohol illicit drugs. Hemodynamically stable vital stable. Hemoglobin 10.5 rest of CBC unremarkable. Creatinine 2.3 with baseline 1.9-2.4. Chest x-ray showing cardiomegaly with trace bilateral pleural effusion and possible COPD changes proBNP is elevated 21-100 D-dimer is elevated 1.4 Review of Systems Review of systems CONSTITUTIONAL: No fever, no malaise, no fatigue. HEENT: No recent visual problems or hearing problems. Denied any sore throat. CARDIOVASCULAR: No orthopnea, PND, no palpitations, no syncope. PULMONARY: no chest wall tenderness, no hemoptysis. GASTROINTESTINAL: No diarrhea, no nausea, no vomiting, no abdominal pain. Normoactive bowel sounds. NEUROLOGICAL: No headaches, no weakness, no numbness. HEMATOLOGICAL: Denies any bleeding or petechiae. GENITOURINARY: Denies any burning micturition, frequency, or urgency. MUSCULOSKELETAL/RHEUMATOLOGICAL: Denies any joint pain, swelling, or any muscle pain. ENDOCRINE: Denies any polyuria or polydipsia. Past Medical History Past Medical History: Coronary Artery Disease (CAD), Diabetes Mellitus, Eye Disorder, Hyperlipidemia, Hypertension, Myocardial Infarction ([place]), Renal Disease, Skin Disorder Additional Past Medical History / Comment(s): R eye glaucoma, retinal bleed and little vision, renal failure Stage 3 - R renal transplant in 2008, UTIs with sepsis, Last Myocardial Infarction Date:: 2009 History of Any Multi-Drug Resistant Organisms: None Reported Past Surgical History: Appendectomy, Cholecystectomy, Coronary Bypass/CABG, Heart Catheterization, Hernia Repair, Hysterectomy, Pacemaker Additional Past Surgical History / Comment(s): 2009 right kidney transplant, 4 vessel CABG in 2010, umbilical hernia repair, colonoscopies, silvia cataract removed, R eye laser surgeries. Past Anesthesia/Blood Transfusion Reactions: No Reported Reaction Additional Past Anesthesia/Blood Transfusion Reaction / Comment(s): unknown Past Psychological History: No Psychological Hx Reported Smoking Status: Former smoker Past Alcohol Use History: None Reported Past Drug Use History: None Reported - Past Family History Brother(s) Family Medical History: Cancer Additional Family Medical History / Comment(s): one brother had kidney cancer. one brother had prostate cancer Mother Family Medical History: Coronary Artery Disease (CAD) Additional Family Medical History / Comment(s): mom had heart disease Father Family Medical History: Cancer Additional Family Medical History / Comment(s): lung and pancreatic cancer Medications and Allergies Home Medications Medication Instructions Recorded Confirmed Type Tacrolimus [Prograf] 2 mg PO DAILY 09/13/17 04/18/25 History Isosorbide Mononitrate ER [Imdur] 30 mg PO DAILY 11/26/17 04/18/25 History Insulin Glargine,Hum.rec.anlog 44 units SQ HS 04/18/20 04/18/25 History [Toujeo Solostar] Magnesium Oxide 400 mg PO DAILY 04/18/20 04/18/25 History Tacrolimus [Prograf] 1 mg PO HS 04/18/20 04/18/25 History Aspirin 81 mg PO DAILY #30 chew 04/22/20 04/18/25 Rx Atorvastatin [Lipitor] 40 mg PO HS #30 tab 04/22/20 04/18/25 Rx Cranberry Fruit Extract [Cranberry] 1,500 mg PO DAILY 06/21/24 04/18/25 History Ascorbic Acid [Vitamin C] 1,000 mg PO DAILY 11/15/24 04/18/25 History Cholecalciferol (Vitamin D3) 50 mcg PO BID 11/15/24 04/18/25 History [Vitamin D3 (50 Mcg = 2000 Iu)] Dapagliflozin Propanediol [Farxiga] 10 mg PO DAILY 03/30/25 04/18/25 History Mycophenolate Sodium [Mycophenolic 360 mg PO BID 03/30/25 04/18/25 History Acid] Ranolazine [Ranexa] 500 mg PO Q12HR 30 Days #60 tab 04/01/25 04/18/25 Rx amLODIPine [Norvasc] 5 mg PO DAILY 30 Days #30 tab 04/01/25 04/18/25 Rx Acetaminophen Tab [Tylenol] 650 mg PO Q6HR PRN tab 04/05/25 04/18/25 Rx Metoprolol Succinate (ER) [Toprol 100 mg PO DAILY #30 tab 04/05/25 04/18/25 Rx XL] hydrALAZINE HCL [Apresoline] 75 mg PO TID 30 Days #225 tab 04/05/25 04/18/25 Rx Insulin Aspart [NovoLOG Flexpen] See Protocol SQ AC-TID 04/18/25 04/18/25 History Allergies Allergy/AdvReac Type Severity Reaction Status Date / Time metoclopramide HCl Allergy Unknown Verified 04/04/25 09:27 [From Reglan] adhesive tape AdvReac tears skin Verified 04/04/25 09:27 grapefruit [Grapefruit] AdvReac reaction Verified 04/04/25 09:27 with simvastatin ibuprofen AdvReac kidney Verified 04/04/25 09:27 failure/transplant ropinirole [From Requip] AdvReac LEG CRAMPS Verified 04/04/25 09:27 nupur Allergy Rash/Hives Uncoded 04/04/25 09:27 Physical Exam Vitals: Vital Signs Temp Pulse Resp BP Pulse Ox 04/18/25 11:25 97.9 F 62 16 152/65 95 Intake and Output 04/17/25 04/18/25 04/18/25 22:59 06:59 14:59 Other: Weight 108.862 kg -GENERAL: The patient is alert and oriented x3, not in any acute distress. Well developed, well nourished. Obese HEENT: Pupils are round and equally reacting to light. EOMI. No scleral icterus. No conjunctival pallor. Normocephalic, atraumatic. No pharyngeal erythema. No thyromegaly. CARDIOVASCULAR: S1 and S2 present. No murmurs, rubs, or gallops. -PULMONARY: Chest is clear to auscultation, no wheezing , bilateral basal crackles. ABDOMEN: Soft, nontender, nondistended, normoactive bowel sounds. No palpable organomegaly. MUSCULOSKELETAL: No joint swelling or deformity. -EXTREMITIES: No cyanosis, clubbing, . Bilateral pitting leg edema. NEUROLOGICAL: Gross neurological examination did not reveal any focal deficits. SKIN: No rashes. no petechiae. Results CBC & Chem 7: 04/18/25 11:53 04/18/25 11:53 Labs: Abnormal Lab Results - Last 24 Hours (Table) 04/18/25 04/18/25 04/18/25 Range/Units 11:53 11:53 12:29 RBC 3.81 L (4.10-5.20) 10*6/uL Hgb 10.5 L (12.0-15.0) g/dL Hct 32.7 L (37.2-46.3) % Lymphocytes # 0.78 L (0.90-5.00) 10*3/uL D-Dimer 1.41 H (<0.60) mg/L FEU Sodium 131 L (137-145) mmol/L Potassium 5.8 H (3.5-5.1) mmol/L BUN 50 H (7-17) mg/dL Creatinine 2.34 H (0.52-1.04) mg/dL Glucose 191 H (74-99) mg/dL Albumin 3.4 L (3.5-5.0) g/dL Assessment and Plan Assessment: Acute CHF exacerbation Chronic kidney disease stage IV Elevated D-dimer Coronary artery disease status post CABG and stent Diabetes mellitus Hypertension Hyperlipidemia Obesity with BMI of 38.7 Plan: Continue with IV Lasix Cardiology team consult Monitor input and output and creatinine Nephrology team consult Follow-up nuclear scan to rule out PE Labs and medication were reviewed.. Continue same treatment. Continue with symptomatic treatment. Resume home medication. Monitor labs and vitals. DVT and GI prophylaxis. Further recommendations as per clinical course of the patient DVT prophylaxis: Subcutaneous heparin GI Prophylaxis: Pepcid PT/OT: Pending Prognosis is guarded
[2025-04-18] MEDS ORDERED: DEXTROSE 50% SYRINGE 50 ML IVP PRN ×2 (14:43)
--- NOTE | 2025-04-18 16:55 | NM ---
EXAMINATION TYPE: NM pul vent and perfuse DATE OF EXAM: 04/18/2025 CLINICAL INDICATION: Female, 74 years old with history of elevated d dimer; COMPARISON: chest radiograph TECHNIQUE: Utilizing inhalation of 67.2 mCi Tc 99m DTPA aerosol and intravenous injection of 5.2 mCi of Tc 99m MAA, ventilation and perfusion images are acquired post injection in multiple projections. FINDINGS: Normal radiotracer distribution is noted in the lungs. There is no evidence of mismatched defects. IMPRESSION: No mismatched defects to suggest pulmonary embolus by PIOPED criteria. [facility], , 04/18/2025 4:53 PM
[2025-04-18 17:28] LABS: Glucose,Whole Blood 178 mg/dL (70-110)
[2025-04-18] MEDS: INSULIN LISPRO (HumaLOG) 100 UNIT/ML 10 mL VL SQ SCH (17:47)
[2025-04-18 20:36] LABS: Glucose,Whole Blood 194 mg/dL (70-110)
[2025-04-18] MEDS: FUROSEMIDE 10 MG/ML 4 ML VIAL IV SCH (21:26)
[2025-04-18] MEDS: ATORVASTATIN 40 MG TAB PO SCH (21:26)
[2025-04-18] MEDS: TACROLIMUS 1 MG CAP PO SCH (21:26)
[2025-04-18] MEDS: MYCOPHENOLATE SODIUM DR 180 MG TABLET.DR PO SCH (21:26)
[2025-04-18] MEDS: RANOLAZINE 500 MG TAB.ER.12H PO SCH (22:18)
--- NOTE | 2025-04-19 00:35 | P.CNPUL ---
History of Present Illness Consult date: 04/19/25 Requesting physician: Acosta Beckham Reason for consult: dyspnea Chief complaint: Shortness of breath History of present illness: Patient is a 74-year-old female past medical history significant for renal transplant, hypertension, hyperlipidemia, coronary artery diseas with previous CABG, diabetes mellitus, and recent permanent pacemaker implantation. Presented the emergency department yesterday morning complaining of increasing work of breathing over the last several days. Mostly on exertion, such as ambulating to the bathroom and back. Positive for orthopnea, she sleeps in a recliner at home. Associated increased lower extremity swelling. States she recently had a pacemaker placed approximately 2 weeks ago because her heart rate was dropping low. Recent echocardiogram from 04/02/2025 estimating left ventricular ejection fraction of 45%. Chest x-ray remarkable for cardiomegaly, pulmonary vascular congestion, and trace bilateral pleural effusions. Sternotomy wires. Pacemaker generator noted. NT proBNP was elevated at 21,200. Other labs including a CBC with a WBC count of 5.7, hemoglobin 10.5, platelets 185. CMP: Sodium 131, potassium 5.8, chloride 99, serum bicarb 22, BUN 50, creatinine 2.34, glucose 191. Lactic 0.7. LFTs not elevated. Troponin 0.017. D-dimer was elevated VQ scan showing low probability for PE. She is currently being seen in the [facility] medical floor. Endorses above-mentioned symptoms. Sitting in bed with the head elevated. She is on room air, and not in any respiratory distress. She has been started on Lasix 40 mg twice daily. Frequent voiding. Denies any URI-like symptoms. No coughing. No fevers/chills. No sick contacts. Denies chest pain, heart palpitations, syncopal events. Left chest pacemaker generator insertion site is approximated and pink. No drainage. Afebrile. Review of Systems REVIEW OF SYSTEMS: CONSTITUTIONAL: positive for weight gain EYES: Denies change in vision. EARS, NOSE, MOUTH, THROAT: Denies headaches, denies sore throat. CARDIOVASCULAR: See HPI RESPIRATORY: See HPI GASTROINTESTINAL: Denies change in appetite, abdominal pain, nausea and vomiting, or diarrhea GENITOURINARY: Denies dysuria, hematuria, flank pain MUSKULOSKELETAL: Denies pain, denies swelling. INTEGUMENTARY: Denies rash, denies eczema. NEUROLOGICAL: Denies recent memory loss, no recent seizure activity. PSYCHIATRIC: Denies anxiety, denies depression. HEMATOLOGIC/LYMPHATIC: Denies anemia, denies enlarged lymph node Past Medical History Past Medical History: Coronary Artery Disease (CAD), Diabetes Mellitus, Eye Disorder, Hyperlipidemia, Hypertension, Myocardial Infarction ([place]), Renal Disease, Skin Disorder Additional Past Medical History / Comment(s): R eye optic nerve, retinal bleed and little vision, renal failure Stage 3 - R renal transplant in 2008, UTIs with sepsis, Last Myocardial Infarction Date:: 2009 History of Any Multi-Drug Resistant Organisms: None Reported Past Surgical History: Appendectomy, Cholecystectomy, Coronary Bypass/CABG, Hear t Catheterization, Hernia Repair, Hysterectomy, Pacemaker Additional Past Surgical History / Comment(s): 2009 right kidney transplant, 4 vessel CABG in 2009, umbilical hernia repair, colonoscopies, silvia cataract removed, R eye laser surgeries. Past Anesthesia/Blood Transfusion Reactions: No Reported Reaction Additional Past Anesthesia/Blood Transfusion Reaction / Comment(s): unknown Type of Cardiac Device: Permanent Pacemaker Device Placement Date:: March 2025 Past Psychological History: No Psychological Hx Reported Additional Psychological History / Comment(s): Pt resides with her adult grandson who has autism but is high functioning. Pt does not drive, she uses the bus system and daughter's friend for transportation. She ambulates with a cane. Smoking Status: Former smoker Past Alcohol Use History: None Reported Additional Past Alcohol Use History / Comment(s): Pt started smoking as a teen and quit in 2001. Past Drug Use History: None Reported - Past Family History Brother(s) Family Medical History: Cancer Additional Family Medical History / Comment(s): one brother had kidney cancer. one brother had prostate cancer Mother Family Medical History: Coronary Artery Disease (CAD) Additional Family Medical History / Comment(s): mom had heart disease Father Family Medical History: Cancer Additional Family Medical History / Comment(s): lung and pancreatic cancer Medications and Allergies Home Medications Medication Instructions Recorded Confirmed Type Tacrolimus [Prograf] 2 mg PO DAILY 09/13/17 04/18/25 History Isosorbide Mononitrate ER [Imdur] 30 mg PO DAILY 11/26/17 04/18/25 History Insulin Glargine,Hum.rec.anlog 44 units SQ HS 04/18/20 04/18/25 History [Brooke Ly] Magnesium Oxide 400 mg PO DAILY 04/18/20 04/18/25 History Tacrolimus [Prograf] 1 mg PO HS 04/18/20 04/18/25 History Aspirin 81 mg PO DAILY #30 chew 04/22/20 04/18/25 Rx Atorvastatin [Lipitor] 40 mg PO HS #30 tab 04/22/20 04/18/25 Rx Cranberry Fruit Extract [Cranberry] 1,500 mg PO DAILY 06/21/24 04/18/25 History Ascorbic Acid [Vitamin C] 1,000 mg PO DAILY 11/15/24 04/18/25 History Cholecalciferol (Vitamin D3) 50 mcg PO BID 11/15/24 04/18/25 History [Vitamin D3 (50 Mcg = 2000 Iu)] Dapagliflozin Propanediol [Farxiga] 10 mg PO DAILY 03/30/25 04/18/25 History Mycophenolate Sodium [Mycophenolic 360 mg PO BID 03/30/25 04/18/25 History Acid] Ranolazine [Ranexa] 500 mg PO Q12HR 30 Days #60 tab 04/01/25 04/18/25 Rx amLODIPine [Norvasc] 5 mg PO DAILY 30 Days #30 tab 04/01/25 04/18/25 Rx Acetaminophen Tab [Tylenol] 650 mg PO Q6HR PRN tab 04/05/25 04/18/25 Rx Metoprolol Succinate (ER) [Toprol 100 mg PO DAILY #30 tab 04/05/25 04/18/25 Rx XL] hydrALAZINE HCL [Apresoline] 75 mg PO TID 30 Days #225 tab 04/05/25 04/18/25 Rx Insulin Aspart [NovoLOG Flexpen] See Protocol SQ AC-TID 04/18/25 04/18/25 History Allergies Allergy/AdvReac Type Severity Reaction Status Date / Time metoclopramide HCl Allergy Unknown Verified 04/04/25 09:27 [From Reglan] adhesive tape AdvReac tears skin Verified 04/04/25 09:27 grapefruit [Grapefruit] AdvReac reaction Verified 04/04/25 09:27 with simvastatin ibuprofen AdvReac kidney Verified 04/04/25 09:27 failure/transplant ropinirole [From Requip] AdvReac LEG CRAMPS Verified 04/04/25 09:27 nupur Allergy Rash/Hives Uncoded 04/04/25 09:27 Physical Exam Vitals: Vital Signs Temp Pulse Pulse Resp BP BP Pulse Ox 04/18/25 20:40 97.1 F L 63 20 139/76 94 L 04/18/25 20:15 97.6 F 60 16 118/68 93 L 04/18/25 19:30 97.6 F 60 18 122/50 94 L 04/18/25 17:00 61 22 134/56 91 L 04/18/25 15:00 60 20 123/61 93 L 04/18/25 14:00 63 21 132/59 93 L 04/18/25 11:40 67 20 130/53 92 L 04/18/25 11:25 97.9 F 62 16 152/65 95 Intake and Output 04/18/25 04/18/25 04/19/25 14:59 22:59 06:59 Other: Weight 108.862 kg 108.862 kg GENERAL EXAM: Alert, 74-year-old obese female, on room air, comfortable in no apparent distress while at rest HEAD: Normocephalic and atraumatic EYES: Normal reaction of pupils, equal size. NOSE: Clear with pink turbinates. THROAT: No erythema or exudates. NECK: No masses, no JVD. CHEST: Left chest incision approximated and pink. No drainage. LUNGS: Equal air entry with bibasilar inspiratory crackles. CVS: S1 and S2 normal with soft systolic murmur, regular rhythm. No other extra heart sounds ABDOMEN: No hepatosplenomegaly, active bowel sounds, no guarding or rigidity. SPINE: No scoliosis or deformity SKIN: No rashes CENTRAL NERVOUS SYSTEM: No focal deficits, tone is normal in all 4 extremities. EXTREMITIES: There is 1-2+ bilateral lower extremity edema. No clubbing or cyanosis. Peripheral pulses are intact. Results - Laboratory Findings CBC and BMP: 04/18/25 11:53 04/18/25 11:53 PT/INR, D-dimer PT 11.6 sec (10.0-12.5) 04/18/25 12:29 INR 1.1 (<1.2) 04/18/25 12:29 D-Dimer 1.41 mg/L FEU (<0.60) H 04/18/25 12:29 Abnormal lab findings: Abnormal Labs 04/18/25 04/18/25 04/18/25 11:53 11:53 12:29 RBC 3.81 L Hgb 10.5 L Hct 32.7 L Lymphocytes # 0.78 L D-Dimer 1.41 H Sodium 131 L Potassium 5.8 H BUN 50 H Creatinine 2.34 H Glucose 191 H POC Glucose (mg/dL) Albumin 3.4 L 04/18/25 04/18/25 17:26 20:34 RBC Hgb Hct Lymphocytes # D-Dimer Sodium Potassium BUN Creatinine Glucose POC Glucose (mg/dL) 178 H 194 H Albumin - Diagnostic Findings Chest x-ray: image reviewed Assessment and Plan Assessment: Acute CHF exacerbation with reduce ejection fraction Acute dyspnea, secondary to above Elevated D-dimer, VQ scan showing low probability for PE Hypertension History of hyperlipidemia History of coronary artery disease with previous CABG History of biventricular pacemaker implantation on 04/04/2025 Acute on chronic kidney disease History of renal transplant, on Prograf Hyperkalemia History of frequent urinary tract infections Diabetes mellitus type 2, insulin-dependent Obesity, with a BMI of 38.7 kg/m Plan: Chest x-ray reviewed, remarkable for cardiomegaly, pulmonary vascular congestion, and trace bilateral pleural effusions. NT-proBNP 21,200 Patient currently on room air and nondistressed Previously started on Lasix 40 mg twice daily Prograf has been restarted Monitor renal function Monitor electrolytes Nephrology is consulted Cardiology is also consulted Case to be reviewed with my supervising physician, further recommendations to follow I have personally seen and examined the patient, performed the documentation and the assessment and plan as written. Number of minutes spent on the visit:20 This dictation was produced using e-SENS dictation software please excuse grammatical errors Time with Patient: Greater than 30
[2025-04-19 06:41] LABS: Glucose,Whole Blood 134 mg/dL (70-110)
[2025-04-19 08:14] LABS: Basophils # (A) 0.06 X 10*3/uL (0.00-0.10); Basophils % (A) 1.2 %; Eosinophils # (A) 0.22 X 10*3/uL (0.04-0.35); Eosinophils % (A) 4.5 %; HCT 32.2 % (37.2-46.3); HGB 10.2 g/dL (12.0-15.0); Immature Grans, Automated 0.20 %; Lymphocytes # (A) 0.93 X 10*3/uL (0.90-5.00); Lymphocytes % (A) 19.1 %; MCH 27.6 pg (27.0-32.0); MCHC 31.7 g/dL (32.0-37.0); MCV 87.0 FL (80.0-97.0); Monocytes # (A) 0.56 X 10*3/uL (0.20-1.00); Monocytes % (A) 11.5 %; NRBC Per 100 WBC 0 X 10*3/uL (0.00-0.01); Neutrophils # (A) 3.08 X 10*3/uL (1.80-7.70); Neutrophils % (A) 63.5 %; Platelet Count 207 X 10*3/uL (140-440); RBC 3.70 X 10*6/uL (4.10-5.20); RDW 13.8 % (11.5-14.5); WBC 4.86 X 10*3/uL (4.50-10.00)
[2025-04-19 08:21] LABS: Anion Gap 10.80 mmol/L (4.00-12.00); BUN/Creat Ratio 20.64 Ratio (12.00-20.00); Blood Urea Nitrogen 45.4 mg/dL (9.0-27.0); Calcium 8.7 mg/dL (8.7-10.3); Carbon Dioxide 22.2 mmol/L (21.6-31.8); Chloride 100 mmol/L (96-109); Glucose 130 mg/dL (70-110); Potassium 5.5 mmol/L (3.5-5.5); Sodium 133 mmol/L (135-145)
[2025-04-19] MEDS: FUROSEMIDE 40 MG TAB PO SCH (09:21)
[2025-04-19] MEDS: MAGNESIUM OXIDE 400 MG TAB PO SCH (10:01)
[2025-04-19] MEDS: ASPIRIN 81 MG PO SCH (10:03)
[2025-04-19] MEDS: amLODIPine 5 MG TAB PO SCH (10:05)
--- NOTE | 2025-04-19 10:05 | P.CRDCN ---
History of Present Illness Consult date: 04/19/25 Consult reason: congestive heart failure History of present illness: This is a 74-year-old female patient of Dr. Helen Girard with past medical history significant for coronary artery disease status post bypass grafting, left bundle branch block with bradycardia, kidney failure status post renal transplant, hypertension, diabetes mellitus, dyslipidemia, former nicotine dependence, obesity and chronic systolic heart failure. Patient recently underwent dual- chamber pacemaker implantation with conduction system pacing and left bundle pacing for symptomatic bradycardia, left bundle branch block morphology with NH interval 174, presyncope. This was performed on 04/04/2025. We have been asked to evaluate the patient for heart failure. Patient states that she came into the hospital for shortness of breath. The shortness of breath that started on 04/17. She denies any fever or chills. She denies chest pain. She states she did have increase lower extremity edema which is improved after she has been on IV Lasix 40 mg every 12 hours. Blood pressure 135/70, heart rate in the 60s, pulse ox 93% on room air. -EKG: Paced rhythm -VQ scan: No defects to suggest pulmonary embolus. -Chest x-ray: Cardiomegaly with trace bilateral pleural effusions. Suspect background COPD. -Laboratory studies: WBC 4.8, hemoglobin 10.2, sodium 133, potassium 5.5, BUN 45 and creatinine 2.2. Troponin negative x 1. proBNP 21,200. -Home cardiac medications: Amlodipine 5 mg daily, aspirin 81 mg daily, atorvastatin 40 mg at bedtime, Farxiga 10 mg daily, hydralazine 75 mg 3 times daily, Imdur 30 mg daily, magnesium oxide 400 mg daily, Toprol XL 100 mg daily, Ranexa 500 mg every 12 hours. -Echocardiogram limited performed 04/02/2025 revealed EF at least 45%. No pericardial effusion. -Dual-chamber Medtronic pacemaker implantation with conduction system pacing, left bundle pacing, performed 04/04/2025. Review Of Systems: At the time of my exam: CONSTITUTIONAL: Denies fever or chills. HEENT: Denies blurred vision, vision changes, or eye pain. Denies hemoptysis CARDIOVASCULAR: Denies chest pain. Denies orthopnea. Denies PND. Denies palpitations RESPIRATORY: Shortness of breath is improved. GASTROINTESTINAL: Denies abdominal pain. Denies nausea or vomiting. HEMATOLOGIC: Denies bleeding disorders. GENITOURINARY: Denies any blood in urine. SKIN: Denies puritis. Denies rash. Physical examination: Gen: This is 74-year-old female in no acute distress. VS: reviewed HEENT: Head is atraumatic, normocephalic. Pupils equal, round. Sclerae is anicteric. NECK: Supple. No JVD. LUNGS: Clear to auscultation. No wheezes or rhonchi. No intercostal retr actions. HEART: Regular rate and rhythm. No murmur. ABDOMEN: Soft No tenderness. EXTREMITIES: No pedal edema. No calf tenderness. NEUROLOGICAL: Patient is awake, alert and oriented x3. Assessment: Acute systolic heart failure Status post recent dual-chamber pacemaker implantation, left bundle pacing Coronary artery disease status post bypass grafting Hypertension Dyslipidemia Diabetes mellitus Chronic renal failure status post kidney transplant 2008 Plan: Resume patient's home cardiac medications Transition IV Lasix to oral 40 mg twice daily Monitor GUILLERMINA, daily weights, electrolytes and renal function Obtain repeat 2-D echocardiogram and Doppler study to assess cardiac structure and function Further recommendations to follow based upon clinical course Thank you kindly for this consultation. Nurse practitioner note has been reviewed, I agree with documented findings and plan of care. Patient was seen and examined. Past Medical History Past Medical History: Coronary Artery Disease (CAD), Diabetes Mellitus, Eye Disorder, Hyperlipidemia, Hypertension, Myocardial Infarction ([place]), Renal Disease, Skin Disorder Additional Past Medical History / Comment(s): R eye optic nerve, retinal bleed and little vision, renal failure Stage 3 - R renal transplant in 2008, UTIs with sepsis, Last Myocardial Infarction Date:: 2009 History of Any Multi-Drug Resistant Organisms: None Reported Past Surgical History: Appendectomy, Cholecystectomy, Coronary Bypass/CABG, Heart Catheterization, Hernia Repair, Hysterectomy, Pacemaker Additional Past Surgical History / Comment(s): 2009 right kidney transplant, 4 vessel CABG in 2009, umbilical hernia repair, colonoscopies, silvia cataract removed, R eye laser surgeries. Past Anesthesia/Blood Transfusion Reactions: No Reported Reaction Additional Past Anesthesia/Blood Transfusion Reaction / Comment(s): unknown Type of Cardiac Device: Permanent Pacemaker Device Placement Date:: March 2025 Past Psychological History: No Psychological Hx Reported Additional Psychological History / Comment(s): Pt resides with her adult grandson who has autism but is high functioning. Pt does not drive, she uses the bus system and daughter's friend for transportation. She ambulates with a cane. Smoking Status: Former smoker Past Alcohol Use History: None Reported Additional Past Alcohol Use History / Comment(s): Pt started smoking as a teen and quit in 2001. Past Drug Use History: None Reported - Past Family History Brother(s) Family Medical History: Cancer Additional Family Medical History / Comment(s): one brother had kidney cancer. one brother had prostate cancer Mother Family Medical History: Coronary Artery Disease (CAD) Additional Family Medical History / Comment(s): mom had heart disease Father Family Medical History: Cancer Additional Family Medical History / Comment(s): lung and pancreatic cancer Medications and Allergies Home Medications Medication Instructions Recorded Confirmed Type Tacrolimus [Prograf] 2 mg PO DAILY 09/13/17 04/18/25 History Isosorbide Mononitrate ER [Imdur] 30 mg PO DAILY 11/26/17 04/18/25 History Insulin Glargine,Hum.rec.anlog 44 units SQ HS 04/18/20 04/18/25 History [Toujeo Solostar] Magnesium Oxide 400 mg PO DAILY 04/18/20 04/18/25 History Tacrolimus [Prograf] 1 mg PO HS 04/18/20 04/18/25 History Aspirin 81 mg PO DAILY #30 chew 04/22/20 04/18/25 Rx Atorvastatin [Lipitor] 40 mg PO HS #30 tab 04/22/20 04/18/25 Rx Cranberry Fruit Extract [Cranberry] 1,500 mg PO DAILY 06/21/24 04/18/25 History Ascorbic Acid [Vitamin C] 1,000 mg PO DAILY 11/15/24 04/18/25 History Cholecalciferol (Vitamin D3) 50 mcg PO BID 11/15/24 04/18/25 History [Vitamin D3 (50 Mcg = 2000 Iu)] Dapagliflozin Propanediol [Farxiga] 10 mg PO DAILY 03/30/25 04/18/25 History Mycophenolate Sodium [Mycophenolic 360 mg PO BID 03/30/25 04/18/25 History Acid] Ranolazine [Ranexa] 500 mg PO Q12HR 30 Days #60 tab 04/01/25 04/18/25 Rx amLODIPine [Norvasc] 5 mg PO DAILY 30 Days #30 tab 04/01/25 04/18/25 Rx Acetaminophen Tab [Tylenol] 650 mg PO Q6HR PRN tab 04/05/25 04/18/25 Rx Metoprolol Succinate (ER) [Toprol 100 mg PO DAILY #30 tab 04/05/25 04/18/25 Rx XL] hydrALAZINE HCL [Apresoline] 75 mg PO TID 30 Days #225 tab 04/05/25 04/18/25 Rx Insulin Aspart [NovoLOG Flexpen] See Protocol SQ AC-TID 04/18/25 04/18/25 History Allergies Allergy/AdvReac Type Severity Reaction Status Date / Time metoclopramide HCl Allergy Unknown Verified 04/04/25 09:27 [From Reglan] adhesive tape AdvReac tears skin Verified 04/04/25 09:27 grapefruit [Grapefruit] AdvReac reaction Verified 04/04/25 09:27 with simvastatin ibuprofen AdvReac kidney Verified 04/04/25 09:27 failure/transplant ropinirole [From Requip] AdvReac LEG CRAMPS Verified 04/04/25 09:27 nupur Allergy Rash/Hives Uncoded 04/04/25 09:27 Physical Exam Vitals: Vital Signs Temp Pulse Pulse Pulse Resp BP BP 04/19/25 08:00 97.6 F 69 19 135/70 04/19/25 01:11 97.5 F L 64 18 129/61 04/18/25 20:40 97.1 F L 63 20 139/76 04/18/25 20:15 97.6 F 60 16 118/68 04/18/25 19:30 97.6 F 60 18 122/50 04/18/25 17:00 61 22 134/56 04/18/25 15:00 60 20 123/61 04/18/25 14:00 63 21 132/59 04/18/25 11:40 67 20 130/53 04/18/25 11:25 97.9 F 62 16 152/65 Pulse Ox 04/19/25 08:00 93 L 04/19/25 01:11 92 L 04/18/25 20:40 94 L 04/18/25 20:15 93 L 04/18/25 19:30 94 L 04/18/25 17:00 91 L 04/18/25 15:00 93 L 04/18/25 14:00 93 L 04/18/25 11:40 92 L 04/18/25 11:25 95 Intake and Output 04/18/25 04/19/25 04/19/25 22:59 06:59 14:59 Other: # Voids 4 Weight 108.862 kg 106.5 kg Results 04/19/25 04:19 04/19/25 04:14 Cardiac Enzymes 04/18/25 04/18/25 Range/Units 11:53 11:53 AST 23 (14-36) U/L Troponin I 0.017 (0.000-0.034) ng/mL Coagulation 04/18/25 Range/Units 12:29 PT 11.6 (10.0-12.5) sec APTT 24.2 (22.0-30.0) sec CBC 04/18/25 04/19/25 Range/Units 11:53 04:19 WBC 5.74 4.86 (4.50-10.00) 10*3/uL RBC 3.81 L 3.70 L (4.10-5.20) 10*6/uL Hgb 10.5 L 10.2 L (12.0-15.0) g/dL Hct 32.7 L 32.2 L (37.2-46.3) % Plt Count 185 207 (140-440) 10*3/uL Comprehensive Metabolic Panel 04/18/25 04/19/25 Range/Units 11:53 04:14 Sodium 131 L 133 L (137-145) mmol/L Potassium 5.8 H 5.5 (3.5-5.1) mmol/L Chloride 99 100 (98-107) mmol/L Carbon Dioxide 22 22.2 (22-30) mmol/L BUN 50 H 45.4 H (7-17) mg/dL Creatinine 2.34 H 2.2 H (0.52-1.04) mg/dL Glucose 191 H 130 H (74-99) mg/dL Calcium 8.8 8.7 (8.4-10.2) mg/dL AST 23 (14-36) U/L ALT 12 (4-34) U/L Alkaline Phosphatase 87 (38-126) U/L Total Protein 6.5 (6.3-8.2) g/dL Albumin 3.4 L (3.5-5.0) g/dL Current Medications Generic Name Dose Route Start Last Admin Trade Name Freq PRN Reason Stop Dose Admin Acetaminophen 650 mg 04/18/25 14:40 Acetaminophen Tab 325 Mg Tab PO Q6HR PRN Mild Pain (Scale 1 to 3) Amlodipine Besylate 5 mg 04/19/25 09:00 Amlodipine 5 Mg Tab PO DAILY [facility] Aspirin 81 mg 04/19/25 09:00 Aspirin 81 Mg PO DAILY [facility] Atorvastatin Calcium 40 mg 04/18/25 21:00 04/18/25 21:26 Atorvastatin 40 Mg Tab PO 40 mg HS [facility] Administration Dapagliflozin 10 mg 04/19/25 09:00 Dapagliflozin Propanediol 10 Mg Tablet PO DAILY [facility] Dextrose/Water 25 ml 04/18/25 14:43 Dextrose 50% Syringe 50 Ml IVP PER PROTOCOL PRN Hypoglycemia Protocol Dextrose/Water 50 ml 04/18/25 14:43 Dextrose 50% Syringe 50 Ml IVP PER PROTOCOL PRN Hypoglycemia Protocol Furosemide 40 mg 04/18/25 21:00 04/19/25 08:42 Furosemide 10 Mg/Ml 4 Ml Vial IV 40 mg Q12H [facility] Administration Hydralazine HCl 75 mg 04/18/25 16:00 04/18/25 21:24 Hydralazine Hcl 25 Mg Tab PO Not Given TID [facility] Insulin Glargine 33 unit 04/19/25 07:00 Insulin Glargine (Lantus) 100 Unit/Ml Syr 0.3 unit/kg (33 unit) SQ DAILY@0700 [facility] Insulin Human Lispro 0 unit 04/18/25 17:30 04/19/25 06:48 Insulin Lispro (Humalog) 100 Unit/Ml 10 Ml Vl SQ Not Given ACHS [facility] Protocol Isosorbide Mononitrate 30 mg 04/19/25 09:00 Isosorbide Mononitrate Er 30 Mg Tab.Er.24h PO DAILY [facility] Magnesium Oxide 400 mg 04/19/25 09:00 Magnesium Oxide 400 Mg Tab PO DAILY [facility] Metoprolol Succinate 100 mg 04/19/25 09:00 Metoprolol Succinate (Er) 100 Mg Tab.Er.24h PO DAILY [facility] Mycophenolate Sodium 360 mg 04/18/25 21:00 04/18/25 21:[address] 180 Mg Tablet.Dr PO 360 mg BID [facility] Administration Ranolazine 500 mg 04/18/25 21:00 04/18/25 22:18 Ranolazine 500 Mg Tab.Er.12h PO 500 mg Q12HR [facility] Administration Tacrolimus 1 mg 04/18/25 21:00 04/18/25 21:26 Tacrolimus 1 Mg Cap PO 1 mg HS [facility] Administration Tacrolimus 2 mg 04/19/25 09:00 Tacrolimus 1 Mg Cap PO DAILY [facility] Intake and Output 04/18/25 04/19/25 04/19/25 22:59 06:59 14:59 Other: # Voids 4 Weight 108.862 kg 106.5 kg 04/19/25 04:19 04/19/25 04:14
[2025-04-19] MEDS: ISOSORBIDE MONONITRATE ER 30 MG TAB.ER.24H PO SCH (10:06)
[2025-04-19] MEDS: DAPAGLIFLOZIN PROPANEDIOL 10 MG TABLET PO SCH (10:07)
[2025-04-19] MEDS: INSULIN GLARGINE (LANTUS) 100 UNIT/ML SYR SQ SCH (10:08)
[2025-04-19] MEDS: TACROLIMUS 1 MG CAP PO SCH (11:31)
[2025-04-19] MEDS: METOPROLOL SUCCINATE (ER) 100 MG TAB.ER.24H PO SCH (11:34)
[2025-04-19 11:43] LABS: Glucose,Whole Blood 141 mg/dL (70-110)
--- NOTE | 2025-04-19 12:09 | P.NPCON ---
History of Present Illness - Reason for Consult acute renal failure - History of Present Illness Patient is a 74-year-old female with history of living related renal transplant in 2008 and underlying history of type 2 diabetes, hypertension, CKD stage III with baseline creatinine of about 1.4 to 1.5 mg/dL. Serum creatinine more recently has been around 2 to 1.8 mg/dL during her last hospitalization on . Patient is admitted to the hospital with complaints of shortness of breath and increased lower extremity swelling. Patient stated that she had significantly increased her fluid intake due to decreased urine output. On admission patient was noted to be in CHF and fluid overload. She has received IV Lasix and has been switched to oral Lasix today with plans for discharge today. Patient states she is feeling much better. She has had good urine output. No history of fever chills cough nausea vomiting or abdominal pain. Past Medical History Past Medical History: Coronary Artery Disease (CAD), Diabetes Mellitus, Eye Disorder, Hyperlipidemia, Hypertension, Myocardial Infarction ([place]), Renal Disease, Skin Disorder Additional Past Medical History / Comment(s): R eye optic nerve, retinal bleed and little vision, renal failure Stage 3 - R renal transplant in 2008, UTIs with sepsis, Last Myocardial Infarction Date:: 2009 History of Any Multi-Drug Resistant Organisms: None Reported Past Surgical History: Appendectomy, Cholecystectomy, Coronary Bypass/CABG, Heart Catheterization, Hernia Repair, Hysterectomy, Pacemaker Additional Past Surgical History / Comment(s): 2009 right kidney transplant, 4 vessel CABG in 2009, umbilical hernia repair, colonoscopies, silvia cataract removed, R eye laser surgeries. Past Anesthesia/Blood Transfusion Reactions: No Reported Reaction Additional Past Anesthesia/Blood Transfusion Reaction / Comment(s): unknown Type of Cardiac Device: Permanent Pacemaker Device Placement Date:: March 2025 Past Psychological History: No Psychological Hx Reported Additional Psychological History / Comment(s): Pt resides with her adult grandson who has autism but is high functioning. Pt does not drive, she uses the bus system and daughter's friend for transportation. She ambulates with a cane. Smoking Status: Former smoker Past Alcohol Use History: None Reported Additional Past Alcohol Use History / Comment(s): Pt started smoking as a teen and quit in 2001. Past Drug Use History: None Reported - Past Family History Brother(s) Family Medical History: Cancer Additional Family Medical History / Comment(s): one brother had kidney cancer. one brother had prostate cancer Mother Family Medical History: Coronary Artery Disease (CAD) Additional Family Medical History / Comment(s): mom had heart disease Father Family Medical History: Cancer Additional Family Medical History / Comment(s): lung and pancreatic cancer Medications and Allergies Home Medications Medication Instructions Recorded Confirmed Type Tacrolimus [Prograf] 2 mg PO DAILY 09/13/17 04/18/25 History Isosorbide Mononitrate ER [Imdur] 30 mg PO DAILY 11/26/17 04/18/25 History Insulin Glargine,Hum.rec.anlog 44 units SQ HS 04/18/20 04/18/25 History [Toujeo Solostar] Magnesium Oxide 400 mg PO DAILY 04/18/20 04/18/25 History Tacrolimus [Prograf] 1 mg PO HS 04/18/20 04/18/25 History Aspirin 81 mg PO DAILY #30 chew 04/22/20 04/18/25 Rx Atorvastatin [Lipitor] 40 mg PO HS #30 tab 04/22/20 04/18/25 Rx Cranberry Fruit Extract [Cranberry] 1,500 mg PO DAILY 06/21/24 04/18/25 History Ascorbic Acid [Vitamin C] 1,000 mg PO DAILY 11/15/24 04/18/25 History Cholecalciferol (Vitamin D3) 50 mcg PO BID 11/15/24 04/18/25 History [Vitamin D3 (50 Mcg = 2000 Iu)] Dapagliflozin Propanediol [Farxiga] 10 mg PO DAILY 03/30/25 04/18/25 History Mycophenolate Sodium [Mycophenolic 360 mg PO BID 03/30/25 04/18/25 History Acid] Ranolazine [Ranexa] 500 mg PO Q12HR 30 Days #60 tab 04/01/25 04/18/25 Rx amLODIPine [Norvasc] 5 mg PO DAILY 30 Days #30 tab 04/01/25 04/18/25 Rx Acetaminophen Tab [Tylenol] 650 mg PO Q6HR PRN tab 04/05/25 04/18/25 Rx Metoprolol Succinate (ER) [Toprol 100 mg PO DAILY #30 tab 04/05/25 04/18/25 Rx XL] hydrALAZINE HCL [Apresoline] 75 mg PO TID 30 Days #225 tab 04/05/25 04/18/25 Rx Insulin Aspart [NovoLOG Flexpen] See Protocol SQ AC-TID 04/18/25 04/18/25 History Allergies Allergy/AdvReac Type Severity Reaction Status Date / Time metoclopramide HCl Allergy Unknown Verified 04/04/25 09:27 [From Reglan] adhesive tape AdvReac tears skin Verified 04/04/25 09:27 grapefruit [Grapefruit] AdvReac reaction Verified 04/04/25 09:27 with simvastatin ibuprofen AdvReac kidney Verified 04/04/25 09:27 failure/transplant ropinirole [From Requip] AdvReac LEG CRAMPS Verified 04/04/25 09:27 nupur Allergy Rash/Hives Uncoded 04/04/25 09:27 Physical Exam Vitals: Vital Signs Temp Pulse Pulse Pulse Resp BP BP 04/19/25 08:00 97.6 F 69 19 135/70 04/19/25 01:11 97.5 F L 64 18 129/61 04/18/25 20:40 97.1 F L 63 20 139/76 04/18/25 20:15 97.6 F 60 16 118/68 04/18/25 19:30 97.6 F 60 18 122/50 04/18/25 17:00 61 22 134/56 04/18/25 15:00 60 20 123/61 04/18/25 14:00 63 21 132/59 Pulse Ox 04/19/25 08:00 93 L 04/19/25 01:11 92 L 04/18/25 20:40 94 L 04/18/25 20:15 93 L 04/18/25 19:30 94 L 04/18/25 17:00 91 L 04/18/25 15:00 93 L 04/18/25 14:00 93 L Intake and Output 04/18/25 04/19/25 04/19/25 22:59 06:59 14:59 Other: # Voids 4 Weight 108.862 kg 106.5 kg Patient is awake, alert oriented x 3 No acute distress Examination of the heart S1 and S2 Examination of the lungs bilateral breath sounds are heard Abdomen is soft obese nontender Examination of lower extremities shows edema 2+ 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 Acute kidney injury, mostly cardiorenal. No hypotension noted. Serum creatinine has been around 2 mg/dL since her last hospitalization on 03/29/2025 2. Chronic kidney disease stage IIIb with baseline creatinine around 1.5 mg/dL but more recently staying close to 2 mg/dL. 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 Status post living related renal allograft in 2008 maintained on Prograf, Myfortic 4. Volume overload 5. Acute on chronic systolic CHF with a EF of about 45% on echocardiogram on 04/02/2025. 6. Status post dual-chamber Medtronic pacemaker implantation on 04/04/2025 Plan: 1 additional dose of IV Lasix 60 mg prior to discharge Continue with oral Lasix 40 mg twice daily post discharge Patient is advised regarding salt and fluid restriction. Continue with Farxiga Repeat labs in 1 week with Prograf level Check Prograf level in a.m. if patient is not discharged today. Follow-up as outpatient in 1 week if discharged today.
[2025-04-19] MEDS: FUROSEMIDE 10 MG/ML 10 ML VIAL IV ONE (12:37)
[2025-04-19 13:29] VITALS: BP 111/65; PULSE 62; RESP 16; TEMP 98.1
--- NOTE | 2025-04-19 14:59 | CA ---
Transthoracic Echo Report Name: Kayla Devine Age: 74 Gender: F : 1950 Exam Date: 04/19/2025 10:38 Exam Location: [place] [facility] Ht (in): 66 Wt (lb): 234 Ordering Physician: Mariya Pereira Attending/Referring Phys: [id number], Randall Tin Stacker Justyna Quintanilla RDCS Procedure CPT: Indications: chf Cardiac Hx: Technical Quality: Fair Contrast 1: Total Dose (mL): Contrast 2: Total Dose (mL): MEASUREMENTS (Male / Female) Normal Values 2D ECHO LV Diastolic Diameter PLAX 4.4 cm 4.2 - 5.9 / 3.9 - 5.3 cm LV Systolic Diameter PLAX 2.8 cm IVS Diastolic Thickness 2.0 cm 0.6 - 1.0 / 0.6 - 0.9 cm LVPW Diastolic Thickness 1.9 cm 0.6 - 1.0 / 0.6 - 0.9 cm LV Relative Wall Thickness 0.9 RV Internal Dim ED PLAX 2.6 cm LVOT Diameter 1.7 cm LA Systolic Diameter LX 3.8 cm 3.0 - 4.0 / 2.7 - 3.8 cm M-MODE Aortic Root Diameter MM 3.1 cm LA Systolic Diameter MM 4.0 cm LA Ao Ratio MM 1.3 AV Cusp Separation MM 0.9 cm DOPPLER AV Peak Velocity 199.7 cm/s AV Peak Gradient 15.9 mmHg AV Mean Velocity 130.2 cm/s AV Mean Gradient 7.8 mmHg AV Velocity Time Integral 47.8 cm LVOT Peak Velocity 84.7 cm/s LVOT Peak Gradient 2.9 mmHg LVOT Velocity Time Integral 19.6 cm LVOT Stroke Volume 43.0 cm??? LVOT Stroke Volume Index 20.1 ml/m??? LVOT Cardiac Index 1154.3 cm???/min???m??? AV Area Cont Eq vti 0.9 cm??? AV Area Cont Eq pk 0.9 cm??? MV Area PHT 3.5 cm??? Mitral E Point Velocity 116.0 cm/s Mitral A Point Velocity 97.6 cm/s Mitral E to A Ratio 1.2 MV Deceleration Time 218.7 ms TR Peak Velocity 251.2 cm/s TR Peak Gradient 25.2 mmHg FINDINGS Left Ventricle Left ventricular ejection fraction is estimated at 45-50 %. Moderately increased septal wall thickness. Moderatly increased posterior wall thickness. Left ventricular cavity size normal. Hypokinetic inferior wall. Right Ventricle Normal right ventricular size and function. Right ventricular systolic pressure within normal limits. Right Atrium Mild right atrial dilatation. Catheter/pacemaker wire in the right atrial cavity. Left Atrium Mild left atrial dilatation. Mitral Valve Mitral valve thickened. Mitral annular calcification. Mild mitral regurgitation. No mitral stenosis. Aortic Valve Trileaflet aortic valve. Trileaflet aortic valve. No aortic valve stenosis or regurgitation. Diffuse thickening (sclerosis) of the aortic valve cusps without reduced excursion. Tricuspid Valve Structurally normal tricuspid valve. No tricuspid stenosis. Mild tricuspid regurgitation. Pulmonic Valve Pulmonic valve not well visualized. Trace pulmonic regurgitation. No pulmonic stenosis. Pericardium No pericardial effusion. Left pleural effusion. Aorta Normal size aortic root and proximal ascending aorta. CONCLUSIONS Reason congestive heart failure Mildly reduced LV systolic function ejection fraction at about 45%. Increased LV mass Inferior posterior hypokinesis, inferior septal hypokinesis Previewed by: Dr. Willis Gao MD (Electronically Signed) Final Date: 19 April 2025 14:58
--- NOTE | 2025-04-19 23:09 | P.DS ---
Providers Date of admission: 04/18/25 13:38 Attending physician: Vivek Wang MD Consults: 04/18/25 13:33 Consult Physician Routine Consulting Provider: Brenton Michaels Consult Reason/Comments: dyspnea Do you want consulting provider notified?: Yes Consult Physician Routine Consulting Provider: Mekhi Breaux Consult Reason/Comments: heart failure Do you want consulting provider notified?: Yes 04/18/25 14:42 Consult Physician Routine Consulting Provider: Yoly Rosa Consult Reason/Comments: CKD IV, kid tyransplant Do you want consulting provider notified?: Yes Primary care physician: Joel Marvin [facility] Course: Diagnoses: Acute on chronic CHF exacerbation with reduced ejection fraction Chronic kidney disease stage IV Elevated D-dimer Coronary artery disease status post CABG and stent Diabetes mellitus Hypertension Hyperlipidemia Obesity with BMI of 38.7 Hospital course: Patient is a pleasant 74 years old female with past medical history of multiple medical problems as below. Presents because of shortness of breath. Patient was found to have acute CHF exacerbation on the top of her chronic kidney disease stage IV from cardiorenal disease with probable mild acute kidney injury on presentation with mild hyperkalemia. Patient was treated with IV diuretics and short-term improvement. Breathing is back to baseline or close to baseline today. No chest pain. No other new complaints. Patient want to go home. I discussed with the patient the possibility of going to rehab at [facility], patient declined stating she wants to go home with home health care which is ordered for her. Also patient was cleared for discharge by search engine marketing strategist. Problems and management plan were discussed with the patient and he verbalized understanding and acceptance Patient was found stable and can be discharged home in guarded prognosis however he needs follow-up as an outpatient. Patient was instructed to follow up with PCP within one week and patient agrees Patient was instructed to follow-up with search engine marketing strategist and helmet coverer and software testing specialist as per discharge instructions Patient was instructed to follow-up with search engine marketing strategist and helmet coverer and software testing specialist as per discharge instructions Physical exam Gen: patient is a AAOx3, no distress CVS: S1-S2, RRR, no murmur Lungs: B/L CTA, no wheezing Abdomen: soft, no distention, no tenderness, positive bowel sounds Extremity: no leg edema or induration Time spent more than 35 minutes Patient Condition at Discharge: Fair Plan - Discharge Summary Discharge Rx Participant: Yes New Discharge Prescriptions: New Furosemide [Lasix] 40 mg PO BID@0900,1600 #60 tab Dapagliflozin Propanediol [Farxiga] 10 mg PO DAILY #30 tab Continue Tacrolimus [Prograf] 2 mg PO DAILY Isosorbide Mononitrate ER [Imdur] 30 mg PO DAILY Magnesium Oxide 400 mg PO DAILY Tacrolimus [Prograf] 1 mg PO HS Insulin Glargine,Hum.rec.anlog [Brooke Ly] 44 units SQ HS Aspirin 81 mg PO DAILY #30 chew Atorvastatin [Lipitor] 40 mg PO HS #30 tab Cholecalciferol (Vitamin D3) [Vitamin D3 (50 Mcg = 2000 Iu)] 50 mcg PO BID Dapagliflozin Propanediol [Farxiga] 10 mg PO DAILY Mycophenolate Sodium [Mycophenolic Acid] 360 mg PO BID Metoprolol Succinate (ER) [Toprol XL] 100 mg PO DAILY #30 tab Cranberry Fruit Extract [Cranberry] 1,500 mg PO DAILY Ascorbic Acid [Vitamin C] 1,000 mg PO DAILY amLODIPine [Norvasc] 5 mg PO DAILY 30 Days #30 tab Ranolazine [Ranexa] 500 mg PO Q12HR 30 Days #60 tab hydrALAZINE HCL [Apresoline] 75 mg PO TID 30 Days #225 tab Acetaminophen Tab [Tylenol] 650 mg PO Q6HR PRN tab PRN Reason: Mild Pain (Scale 1 To 3) Insulin Aspart [NovoLOG Flexpen] See Protocol SQ AC-TID Discharge Medication List Tacrolimus [Prograf] 2 mg PO DAILY 09/13/17 [History] Isosorbide Mononitrate ER [Imdur] 30 mg PO DAILY 11/26/17 [History] Insulin Glargine,Hum.rec.anlog [Brooke Ly] 44 units SQ HS 04/18/20 [History] Magnesium Oxide 400 mg PO DAILY 04/18/20 [History] Tacrolimus [Prograf] 1 mg PO HS 04/18/20 [History] Aspirin 81 mg PO DAILY #30 chew 04/22/20 [Rx] Atorvastatin [Lipitor] 40 mg PO HS #30 tab 04/22/20 [Rx] Cranberry Fruit Extract [Cranberry] 1,500 mg PO DAILY 06/21/24 [History] Ascorbic Acid [Vitamin C] 1,000 mg PO DAILY 11/15/24 [History] Cholecalciferol (Vitamin D3) [Vitamin D3 (50 Mcg = 2000 Iu)] 50 mcg PO BID 11/15/24 [History] Dapagliflozin Propanediol [Farxiga] 10 mg PO DAILY 03/30/25 [History] Mycophenolate Sodium [Mycophenolic Acid] 360 mg PO BID 03/30/25 [History] Ranolazine [Ranexa] 500 mg PO Q12HR 30 Days #60 tab 04/01/25 [Rx] amLODIPine [Norvasc] 5 mg PO DAILY 30 Days #30 tab 04/01/25 [Rx] Acetaminophen Tab [Tylenol] 650 mg PO Q6HR PRN tab 04/05/25 [Rx] Metoprolol Succinate (ER) [Toprol XL] 100 mg PO DAILY #30 tab 04/05/25 [Rx] hydrALAZINE HCL [Apresoline] 75 mg PO TID 30 Days #225 tab 04/05/25 [Rx] Insulin Aspart [NovoLOG Flexpen] See Protocol SQ AC-TID 04/18/25 [History] Dapagliflozin Propanediol [Farxiga] 10 mg PO DAILY #30 tab 04/19/25 [Rx] Furosemide [Lasix] 40 mg PO BID@0900,1600 #60 tab 04/19/25 [Rx] Follow up Appointment(s)/Referral(s): Yoly Rosa MD [STAFF PHYSICIAN] - 1 Week [facility], [NON-STAFF] - 1-2 Days ([facility] will call you to schedule your in home physical therapy and occupational therapy visits. ) Brenton Michaels DO [Doctor of Osteopathic Medicine] - 2 Weeks Joel Wong DO [Primary Care Provider] - 1-2 days Mauro Girard MD [STAFF PHYSICIAN] - 1 Week Activity/Diet/Wound Care/Special Instructions: Heart healthy diet with fluid and salt restriction less than 1500 mL/day Activity is restricted till you see your doctor continue with Farxiga Discharge Disposition: HOME WITH HOME HEALTH SERVICES
== END 2025-04-19 14:13 | disposition home health service (06) ==
LOC: EC 11:09 → UNDOADMIN 13:38 → 4SSUR 13:38 → INTOOBSV 13:39 → 4SSUR 13:39 → UNDODISIN 04-19 14:13
PROVIDERS: ADMIT Internal Medicine; ATTEND Internal Medicine
DX: I13.0 Hypertensive heart and chronic kidney disease with heart failure and stage 1 through stage 4 chronic kidney disease, or unspecified chronic kidney disease (principal); I50.23 Acute on chronic systolic (congestive) heart failure; N17.9 Acute kidney failure, unspecified; N18.4 Chronic kidney disease, stage 4 (severe); T86.19 Other complication of kidney transplant; E11.22 Type 2 diabetes mellitus with diabetic chronic kidney disease; I25.10 Atherosclerotic heart disease of native coronary artery without angina pectoris; E78.5 Hyperlipidemia, unspecified; E87.5 Hyperkalemia; I44.7 Left bundle-branch block, unspecified; E66.9 Obesity, unspecified; Z68.38 Body mass index [BMI] 38.0-38.9, adult; Y83.0 Surgical operation with transplant of whole organ as the cause of abnormal reaction of the patient, or of later complication, without mention of misadventure at the time of the procedure; I25.2 Old myocardial infarction; Z79.60 Long term (current) use of unspecified immunomodulators and immunosuppressants; Z79.82 Long term (current) use of aspirin; Z79.84 Long term (current) use of oral hypoglycemic drugs; Z79.621 Long term (current) use of calcineurin inhibitor; Z79.4 Long term (current) use of insulin; Z79.899 Other long term (current) drug therapy; Z88.6 Allergy status to analgesic agent; Z88.8 Allergy status to other drugs, medicaments and biological substances; Z91.018 Allergy to other foods; Z91.048 Other nonmedicinal substance allergy status; Z87.891 Personal history of nicotine dependence; Z95.0 Presence of cardiac pacemaker; Z95.1 Presence of aortocoronary bypass graft; R79.89 Other specified abnormal findings of blood chemistry; Z95.5 Presence of coronary angioplasty implant and graft; Z87.440 Personal history of urinary (tract) infections
CPT/HCPCS: 96376 ×2; 96372; 96374; 99285; 36415; 93005; 85379; 83880; 80053; 80048; 83605; 83735; 84484; 85025 ×2; 85610; 85730; 83036; 71046; 78582; G0378 ×2; C8929; A9540; A9567; J7507 ×2; J1650; Q9957; J7518 ×2; J1938 ×3; 93306

== ENCOUNTER 2025-04-24 23:25 | Inpatient (IN) | payer MEDICARE ==
--- NOTE | 2025-04-24 23:37 | ED ---
SOB HPI - General Chief Complaint: Shortness of Breath Stated Complaint: YOKO Time Seen by Provider: 04/24/25 23:30 Source: patient, EMS Mode of arrival: EMS - History of Present Illness Initial Comments: This is a 74 female to ER for worsening shortness of breath with recent hospital discharge history of heart disease.Patient on EMS arrival and secondary to severe shortness of breath is unable to give completely accurate history of her oxygen was in the 80s MD Complaint: shortness of breath -: hour(s) Severity: severe Severity scale (1-10): 10 Consistency: constant Improves With: nothing Worsens With: exertion Known History Of: congestive heart failure Context: recent illness Associated Symptoms: chest pain, palpitations Treatments Prior to Arrival: oxygen - Related Data Home Medications Medication Instructions Recorded Confirmed Tacrolimus [Prograf] 2 mg PO DAILY 09/13/17 04/25/25 Isosorbide Mononitrate ER [Imdur] 30 mg PO DAILY 11/26/17 04/25/25 Insulin Glargine,Hum.rec.anlog 44 units SQ HS 04/18/20 04/25/25 [Touchristino Solostar] Magnesium Oxide 400 mg PO DAILY 04/18/20 04/25/25 Tacrolimus [Prograf] 1 mg PO HS 04/18/20 04/25/25 Cranberry Fruit Extract [Cranberry] 1,500 mg PO DAILY 06/21/24 04/25/25 Ascorbic Acid [Vitamin C] 1,000 mg PO DAILY 11/15/24 04/25/25 Cholecalciferol (Vitamin D3) 50 mcg PO BID 11/15/24 04/25/25 [Vitamin D3 (50 Mcg = 2000 Iu)] Dapagliflozin Propanediol [Farxiga] 10 mg PO DAILY 03/30/25 04/25/25 Mycophenolate Sodium [Mycophenolic 360 mg PO BID 03/30/25 04/25/25 Acid] Insulin Aspart [NovoLOG Flexpen] See Protocol SQ AC-TID 04/18/25 04/25/25 Previous Rx's Medication Instructions Recorded Aspirin 81 mg PO DAILY #30 chew 04/22/20 Atorvastatin [Lipitor] 40 mg PO HS #30 tab 04/22/20 Ranolazine [Ranexa] 500 mg PO Q12HR 30 Days #60 tab 04/01/25 amLODIPine [Norvasc] 5 mg PO DAILY 30 Days #30 tab 04/01/25 Acetaminophen Tab [Tylenol] 650 mg PO Q6HR PRN tab 04/05/25 Metoprolol Succinate (ER) [Toprol 100 mg PO DAILY #30 tab 04/05/25 XL] hydrALAZINE HCL [Apresoline] 75 mg PO TID 30 Days #225 tab 04/05/25 Furosemide [Lasix] 40 mg PO BID@0900,1600 #60 tab 04/19/25 Allergies Allergy/AdvReac Type Severity Reaction Status Date / Time metoclopramide HCl Allergy Unknown Verified 04/25/25 07:56 [From Reglan] adhesive tape AdvReac tears skin Verified 04/25/25 07:56 grapefruit [Grapefruit] AdvReac reaction Verified 04/25/25 07:56 with simvastatin ibuprofen AdvReac kidney Verified 04/25/25 07:56 failure/transplant ropinirole [From Requip] AdvReac LEG CRAMPS Verified 04/25/25 07:56 nupur Allergy Rash/Hives Uncoded 04/25/25 07:56 Review of Systems ROS Statement: Those systems with pertinent positive or pertinent negative responses have been documented in the HPI. ROS Other: All systems not noted in ROS Statement are negative. Past Medical History Past Medical History: Coronary Artery Disease (CAD), Diabetes Mellitus, Eye Disorder, Hyperlipidemia, Hypertension, Myocardial Infarction (NV), Renal Disease, Skin Disorder Additional Past Medical History / Comment(s): R eye optic nerve, retinal bleed and little vision, renal failure Stage 3 - R renal transplant in 2008, UTIs with sepsis, Last Myocardial Infarction Date:: 2009 History of Any Multi-Drug Resistant Organisms: None Reported Past Surgical History: Appendectomy, Cholecystectomy, Coronary Bypass/CABG, Heart Catheterization, Hernia Repair, Hysterectomy, Pacemaker Additional Past Surgical History / Comment(s): 2009 right kidney transplant, 4 vessel CABG in 2009, umbilical hernia repair, colonoscopies, silvia cataract removed, R eye laser surgeries. Past Anesthesia/Blood Transfusion Reactions: No Reported Reaction Additional Past Anesthesia/Blood Transfusion Reaction / Comment(s): unknown Type of Cardiac Device: Permanent Pacemaker Device Placement Date:: March 2025 Past Psychological History: No Psychological Hx Reported Smoking Status: Former smoker Past Alcohol Use History: None Reported Past Drug Use History: None Reported - Past Family History Brother(s) Family Medical History: Cancer Additional Family Medical History / Comment(s): one brother had kidney cancer. one brother had prostate cancer Mother Family Medical History: Coronary Artery Disease (CAD) Additional Family Medical History / Comment(s): mom had heart disease Father Family Medical History: Cancer Additional Family Medical History / Comment(s): lung and pancreatic cancer General Exam General appearance: alert, in no apparent distress Head exam: Present: atraumatic, normocephalic, normal inspection Eye exam: Present: normal appearance, PERRL, EOMI. Absent: scleral icterus, conjunctival injection, periorbital swelling ENT exam: Present: normal exam, mucous membranes moist Neck exam: Present: normal inspection. Absent: tenderness, meningismus, lymphadenopathy Respiratory exam: Present: normal lung sounds bilaterally. Absent: respiratory distress, wheezes, rales, rhonchi, stridor Cardiovascular Exam: Present: regular rate, normal rhythm, normal heart sounds. Absent: systolic murmur, diastolic murmur, rubs, gallop, clicks GI/Abdominal exam: Present: soft, normal bowel sounds. Absent: distended, tenderness, guarding, rebound, rigid Extremities exam: Present: normal inspection, full ROM, normal capillary refill. Absent: tenderness, pedal edema, joint swelling, calf tenderness Back exam: Present: normal inspection Neurological exam: Present: alert, oriented X3, CN II-XII intact Psychiatric exam: Present: normal affect, normal mood Skin exam: Present: warm, dry, intact, normal color. Absent: rash Course Vital Signs 04/24/25 04/24/25 04/24/25 23:29 23:43 23:52 Temperature 99.0 F Pulse Rate 78 77 80 Respiratory 20 Rate Blood Pressure 146/64 O2 Sat by Pulse 91 L Oximetry 04/25/25 04/25/25 04/25/25 00:48 02:33 05:12 Temperature 98.0 F Pulse Rate 76 78 75 Respiratory 18 16 16 Rate Blood Pressure 143/60 155/64 156/75 O2 Sat by Pulse 98 99 98 Oximetry - Reevaluation(s) Reevaluation #1: 04/24/25 23:36 medical records reviewed Reevaluation #2: 04/25/25 02:42 No improvement in the ER Reevaluation #3: 04/25/25 02:42 Patient informed of results questions answered Reevaluation #4: Was pt. sent in by a medical professional or institution (, [facility], CODING AUDITOR, urgent care, hospital, or alf...) When possible be specific @ -no Did you speak to anyone other than the patient for history (EMS, parent, family, police, friend...)? What history was obtained from this source @ -no Did you review nursing and triage notes (agree or disagree)? Why? @ -agree Are old charts reviewed (outside hosp., previous admission, EMS record, old EKG, old radiological studies, urgent care reports/EKG's, alf records)? Report findings @ -yes Differential Diagnosis (chest pain, altered mental status, abdominal pain women, abdominal pain men, vaginal bleeding, weakness, fever, dyspnea, syncope, headache, dizziness, GI bleed, back pain, seizure, CVA, palpatations, mental health, musculoskeletal)? @ -prior EKG interpreted by me (3pts min.). @ -yes X-rays interpreted by me (1pt min.). @ -yes positive pulmonary edema CT interpreted by me (1pt min.). @ -no U/S interpreted by me (1pt. min.). @ -no What testing was considered but not performed or refused? (CT, X-rays, U/S, labs)? Why? @ -none What meds were considered but not given or refused? Why? @ -none Did you discuss the management of the patient with other professionals (professionals i.e. , [facility], CODING AUDITOR, lab, RT, psych nurse, social work associate, cokeman, teacher, lodge officer, patient case coordinator)? Give summary @ -no Was smoking cessation discussed for >3mins.? @ -no Was critical care preformed (if so, how long)? @ -yes31 Were there social determinants of health that impacted care today? How? (Homelessness, low income, unemployed, alcoholism, drug addiction, transportation, low edu. Level, literacy, decrease access to med. care, fdc, rehab)? @ -none Was there de-escalation of care discussed even if they declined (Discuss DNR or withdrawal of care, Hospice)? DNR status @ -no What co-morbidities impacted this encounter? (DM, HTN, Smoking, COPD, CAD, Cancer, CVA, ARF, Chemo, Hep., AIDS, mental health diagnosis, sleep apnea, morbid obesity)? @ -none Was patient admitted / discharged? Hospital course, mention meds given and route, prescriptions, significant lab abnormalities, going to OR and other pertinent info. @ - 74 female recent hospital discharge severe CHF worsening kidney injury and fluid overload. Patient admitted for nephrology and heart failure, cardiology evaluation admitted Undiagnosed new problem with uncertain prognosis? @ -no Drug Therapy requiring intensive monitoring for toxicity (Heparin, Nitro, Insulin, Cardizem)? @ -no Were any procedures done? @ -no Diagnosis/symptom? @ -CHF and CKD Acute, or Chronic, or Acute on Chronic? @ -Acute Uncomplicated (without systemic symptoms) or Complicated (systemic symptoms)? @ -Complicated Side effects of treatment? @ -no Exacerbation, Progression, or Severe Exacerbation? @ -exacerbation Poses a threat to life or bodily function? How? (Chest pain, USA, NV, pneumonia, PE, COPD, DKA, ARF, appy, cholecystitis, CVA, Diverticulitis, Homicidal, Suicidal, threat to staff... and all critical care pts) @ -yes respiratory distress with renal failure Reevaluation #5: Differential Dyspnea: Coronary syndrome, arrhythmia, tamponade, asthma, COPD, pulmonary embolism, pneumonia, pneumothorax, pulmonary effusion, anaphylaxis, diabetic ketoacidosis, flailed chest, pulmonary contusion, diaphragmatic rupture, anemia, n euromuscular, this is not meant to be an all-inclusive list. - Consultations Consultation #1: Spoke with [facility] who agrees to admit this patient Medical Decision Making - Medical Decision Making 74 female recent hospital discharge severe CHF worsening kidney injury and fluid overload. Patient admitted for nephrology and heart failure, cardiology evaluation - Lab Data Result diagrams: 04/24/25 23:41 04/30/25 05:30 Lab Results 04/24/25 04/24/25 04/24/25 Range/Units 23:41 23:41 23:41 WBC 8.73 (4.50-10.00) 10*3/uL RBC 3.85 L (4.10-5.20) 10*6/uL Hgb 10.7 L (12.0-15.0) g/dL Hct 33.3 L (37.2-46.3) % MCV 86.5 (80.0-97.0) fL MCH 27.8 (27.0-32.0) pg MCHC 32.1 (32.0-37.0) g/dL Plt Count 224 (140-440) 10*3/uL MPV 10.7 (9.5-12.2) fL Immature Gran % (Auto) 0.9 % Neutrophils % 77.3 % Lymphocytes % 9.6 % Monocytes % 11.1 % Eosinophils % 0.3 % Basophils % 0.8 % Immature Gran # 0.08 H (0.00-0.04) 10*3/uL Neutrophils # 6.74 (1.80-7.70) 10*3/uL Lymphocytes # 0.84 L (0.90-5.00) 10*3/uL Monocytes # 0.97 (0.20-1.00) 10*3/uL Eosinophils # 0.03 L (0.04-0.35) 10*3/uL Basophils # 0.07 (0.00-0.10) 10*3/uL PT 10.9 (10.0-12.5) sec INR 1.0 (<1.2) APTT 23.5 (22.0-30.0) sec Sodium 132 L (137-145) mmol/L Potassium 5.4 H (3.5-5.1) mmol/L Chloride 95 L (98-107) mmol/L Carbon Dioxide 25 (22-30) mmol/L Anion Gap 12 mmol/L BUN 60 H (7-17) mg/dL Creatinine 3.27 H (0.52-1.04) mg/dL Est GFR (CKD-EPI)AfAm 15 (>60 ml/min/1.73 sqM) Est GFR (CKD-EPI)NonAf 13 (>60 ml/min/1.73 sqM) Glucose 226 H (74-99) mg/dL Plasma Lactic Acid Silvino (0.7-2.0) mmol/L Calcium 9.3 (8.4-10.2) mg/dL Magnesium 2.3 (1.6-2.3) mg/dL Total Bilirubin 0.7 (0.2-1.3) mg/dL AST 22 (14-36) U/L ALT 17 (4-34) U/L Alkaline Phosphatase 95 (38-126) U/L Troponin I (0.000-0.034) ng/mL NT-Pro-B Natriuret Pep 71174 pg/mL Total Protein 6.9 (6.3-8.2) g/dL Albumin 3.6 (3.5-5.0) g/dL 04/24/25 04/24/25 Range/Units 23:41 23:41 WBC (4.50-10.00) 10*3/uL RBC (4.10-5.20) 10*6/uL Hgb (12.0-15.0) g/dL Hct (37.2-46.3) % MCV (80.0-97.0) fL MCH (27.0-32.0) pg MCHC (32.0-37.0) g/dL Plt Count (140-440) 10*3/uL MPV (9.5-12.2) fL Immature Gran % (Auto) % Neutrophils % % Lymphocytes % % Monocytes % % Eosinophils % % Basophils % % Immature Gran # (0.00-0.04) 10*3/uL Neutrophils # (1.80-7.70) 10*3/uL Lymphocytes # (0.90-5.00) 10*3/uL Monocytes # (0.20-1.00) 10*3/uL Eosinophils # (0.04-0.35) 10*3/uL Basophils # (0.00-0.10) 10*3/uL PT (10.0-12.5) sec INR (<1.2) APTT (22.0-30.0) sec Sodium (137-145) mmol/L Potassium (3.5-5.1) mmol/L Chloride (98-107) mmol/L Carbon Dioxide (22-30) mmol/L Anion Gap mmol/L BUN (7-17) mg/dL Creatinine (0.52-1.04) mg/dL Est GFR (CKD-EPI)AfAm (>60 ml/min/1.73 sqM) Est GFR (CKD-EPI)NonAf (>60 ml/min/1.73 sqM) Glucose (74-99) mg/dL Plasma Lactic Acid Silvino 0.9 (0.7-2.0) mmol/L Calcium (8.4-10.2) mg/dL Magnesium (1.6-2.3) mg/dL Total Bilirubin (0.2-1.3) mg/dL AST (14-36) U/L ALT (4-34) U/L Alkaline Phosphatase (38-126) U/L Troponin I 0.075 H* (0.000-0.034) ng/mL NT-Pro-B Natriuret Pep pg/mL Total Protein (6.3-8.2) g/dL Albumin (3.5-5.0) g/dL - EKG Data -: EKG Interpreted by Me (EKG is paced 78 SC 177 QRS 150 QTc 415) - Radiology Data Radiology results: report reviewed (Chest x-ray positive for pulmonary edema pleural effusion), image reviewed Critical Care Time Critical Care Time: Yes Total Critical Care Time: 31 Disposition Clinical Impression: ASCVD (arteriosclerotic cardiovascular disease), Dyspnea, CHF (congestive heart failure), Hypoxia, ESME (acute kidney injury), NSTEMI (non-ST elevated myocardial infarction) Disposition: ADMITTED IP TO THIS HOSP Condition: Serious Is patient prescribed a controlled substance at d/c from ED?: No Time of Disposition: 02:00
[2025-04-24] MEDS: IPRATROPIUM-ALBUTEROL 3 ML NEB INHALATION STA (23:41)
[2025-04-25 00:27] LABS: Basophils # (A) 0.07 10*3/uL (0.00-0.10); Basophils % (A) 0.8 %; Eosinophils # (A) 0.03 10*3/uL (0.04-0.35); Eosinophils % (A) 0.3 %; HCT 33.3 % (37.2-46.3); HGB 10.7 g/dL (12.0-15.0); Lymphocytes # (A) 0.84 10*3/uL (0.90-5.00); Lymphocytes % (A) 9.6 %; MCH 27.8 pg (27.0-32.0); MCHC 32.1 g/dL (32.0-37.0); MCV 86.5 fL (80.0-97.0); Monocytes # (A) 0.97 10*3/uL (0.20-1.00); Monocytes % (A) 11.1 %; Neutrophils # (A) 6.74 10*3/uL (1.80-7.70); Neutrophils % (A) 77.3 %; Platelet Count 224 10*3/uL (140-440); RBC 3.85 10*6/uL (4.10-5.20); RDW 13.7 % (11.5-14.5); WBC 8.73 10*3/uL (4.50-10.00)
[2025-04-25 00:57] LABS: ALT 17 U/L (4-34); AST 22 U/L (14-36); African American GFR (CKD) 15 (>60 ml/min/1.73 sqM); Albumin 3.6 g/dL (3.5-5.0); Alkaline Phosphatase 95 U/L (38-126); Anion Gap 12 mmol/L; Blood Urea Nitrogen 60 mg/dL (7-17); Calcium 9.3 mg/dL (8.4-10.2); Carbon Dioxide 25 mmol/L (22-30); Chloride 95 mmol/L (98-107); Glucose 226 mg/dL (74-99); Magnesium 2.3 mg/dL (1.6-2.3); Non-African American GFR(CKD) 13 (>60 ml/min/1.73 sqM); Potassium 5.4 mmol/L (3.5-5.1); Sodium 132 mmol/L (137-145); Total Protein 6.9 g/dL (6.3-8.2)
[2025-04-25 01:22] LABS: INR 1.0 (<1.2); Partial Thromboplastin Time 23.5 sec (22.0-30.0); Prothrombin Time 10.9 sec (10.0-12.5)
[2025-04-25 02:09] LABS: NT-Pro-B-Type Natriuretic Pept 31500 pg/mL
--- NOTE | 2025-04-25 02:27 | XR ---
EXAM: XR Chest, 2 Views CLINICAL HISTORY: ITS.REASON XR Reason: difficulty breathing TECHNIQUE: Frontal and lateral views of the chest. COMPARISON: No relevant prior studies available. FINDINGS: Lungs: Pulmonary vascular congestion. Small left and trace right pleural effusions. Findings are concerning for mild CHF. Pleural space: See above. Heart: Cardiomegaly. Mediastinum: Unremarkable. Bones/joints: Unremarkable. Tubes, lines and devices: AICD/pacemaker. IMPRESSION: Pulmonary vascular congestion. Small left and trace right pleural effusions. Findings are concerning for mild CHF.
[2025-04-25] MEDS ORDERED: IPRATROPIUM-ALBUTEROL 3 ML NEB INHALATION PRN (02:40)
[2025-04-25] MEDS: FUROSEMIDE 10 MG/ML 4 ML VIAL IV SCH ×2 (03:06→16:32)
[2025-04-25] MEDS ORDERED: HEPARIN SODIUM 1,000 UN/ML (10ML VL) IV PRN (04:43)
[2025-04-25] MEDS: ASPIRIN 81 MG PO STA (05:06)
[2025-04-25] MEDS: HEPARIN SOD,PORK IN 0.45% NACL 25,000 UNIT in 0.45% NACL 1 250ML.BAG IV SCH (05:09)
[2025-04-25] MEDS: HEPARIN SODIUM 1,000 UN/ML (10ML VL) IV ONE (05:10)
[2025-04-25 06:03] LABS: Glucose,Whole Blood 215 mg/dL (70-110)
[2025-04-25 07:35] LABS: African American GFR (CKD) 16 (>60 ml/min/1.73 sqM); Anion Gap 13 mmol/L; Blood Urea Nitrogen 59 mg/dL (7-17); Calcium 8.9 mg/dL (8.4-10.2); Carbon Dioxide 21 mmol/L (22-30); Chloride 100 mmol/L (98-107); Glucose 176 mg/dL (74-99); Magnesium 2.3 mg/dL (1.6-2.3); Non-African American GFR(CKD) 14 (>60 ml/min/1.73 sqM); Potassium 5.4 mmol/L (3.5-5.1); Sodium 134 mmol/L (137-145)
[2025-04-25] MEDS ORDERED: DEXTROSE 50% SYRINGE 50 ML IVP PRN ×2 (09:09)
[2025-04-25] MEDS ORDERED: ACETAMINOPHEN TAB 325 MG TAB PO PRN (09:09)
[2025-04-25] MEDS: MAGNESIUM OXIDE 400 MG TAB PO SCH (09:27)
[2025-04-25] MEDS: ISOSORBIDE MONONITRATE ER 30 MG TAB.ER.24H PO SCH (09:27)
[2025-04-25] MEDS: METOPROLOL SUCCINATE (ER) 100 MG TAB.ER.24H PO SCH (09:27)
[2025-04-25] MEDS: RANOLAZINE 500 MG TAB.ER.12H PO SCH (09:27)
--- NOTE | 2025-04-25 10:07 | P.NPCON ---
History of Present Illness - Reason for Consult acute renal failure, chronic renal failure - History of Present Illness Reason for consultation: Acute kidney injury on chronic kidney disease and renal transplant management History of present illness: Is a 74-year-old female seen in renal consultation for renal transplant management and acute kidney injury on chronic kidney disease. Patient received living related renal allograft in 2008. She is maintained on tacrolimus and Myfortic outpatient. She came to the hospital due to shortness of breath which started yesterday. Patient states she was sitting and watching TV when shortness of breath started. She was noted to be in CHF and is currently maintained on IV Lasix 80 mg twice daily. She does have history of diabetes. Also has history of coronary disease and is status post CABG. Patient states she had a pacemaker placed in March 2025. She denies gross hematuria or dysuria. No vomiting or diarrhea. No fever or chills. Hemodynamically stable. Denies use of nonsteroidals. Vital signs are stable. General: No acute distress. HEENT: Head exam is unremarkable. LUNGS: No audible rhonchi or wheezes. HEART: Rate and Rhythm are regular. ABDOMEN: Nontender. EXTREMITITES: No edema. Past Medical History Past Medical History: Coronary Artery Disease (CAD), Diabetes Mellitus, Eye Disorder, Hyperlipidemia, Hypertension, Myocardial Infarction ([place]), Renal Disease, Skin Disorder Additional Past Medical History / Comment(s): R eye optic nerve, retinal bleed and little vision, renal failure Stage 3 - R renal transplant in 2008, UTIs with sepsis, Last Myocardial Infarction Date:: 2009 History of Any Multi-Drug Resistant Organisms: None Reported Past Surgical History: Appendectomy, Cholecystectomy, Coronary Bypass/CABG, Heart Catheterization, Hernia Repair, Hysterectomy, Pacemaker Additional Past Surgical History / Comment(s): 2009 right kidney transplant, 4 vessel CABG in 2009, umbilical hernia repair, colonoscopies, silvia cataract removed, R eye laser surgeries. Past Anesthesia/Blood Transfusion Reactions: No Reported Reaction Additional Past Anesthesia/Blood Transfusion Reaction / Comment(s): unknown Type of Cardiac Device: Permanent Pacemaker Device Placement Date:: March 2025 Smoking Status: Never smoker - Past Family History Brother(s) Family Medical History: Cancer Additional Family Medical History / Comment(s): one brother had kidney cancer. one brother had prostate cancer Mother Family Medical History: Coronary Artery Disease (CAD) Additional Family Medical History / Comment(s): mom had heart disease Father Family Medical History: Cancer Additional Family Medical History / Comment(s): lung and pancreatic cancer Medications and Allergies Home Medications Medication Instructions Recorded Confirmed Type Tacrolimus [Prograf] 2 mg PO DAILY 09/13/17 04/25/25 History Isosorbide Mononitrate ER [Imdur] 30 mg PO DAILY 11/26/17 04/25/25 History Insulin Glargine,Hum.rec.anlog 44 units SQ HS 04/18/20 04/25/25 History [Toujeo Solostar] Magnesium Oxide 400 mg PO DAILY 04/18/20 04/25/25 History Tacrolimus [Prograf] 1 mg PO HS 04/18/20 04/25/25 History Aspirin 81 mg PO DAILY #30 chew 04/22/20 04/25/25 Rx Atorvastatin [Lipitor] 40 mg PO HS #30 tab 04/22/20 04/25/25 Rx Cranberry Fruit Extract [Cranberry] 1,500 mg PO DAILY 06/21/24 04/25/25 History Ascorbic Acid [Vitamin C] 1,000 mg PO DAILY 11/15/24 04/25/25 History Cholecalciferol (Vitamin D3) 50 mcg PO BID 11/15/24 04/25/25 History [Vitamin D3 (50 Mcg = 2000 Iu)] Dapagliflozin Propanediol [Farxiga] 10 mg PO DAILY 03/30/25 04/25/25 History Mycophenolate Sodium [Mycophenolic 360 mg PO BID 03/30/25 04/25/25 History Acid] Ranolazine [Ranexa] 500 mg PO Q12HR 30 Days #60 tab 04/01/25 04/25/25 Rx amLODIPine [Norvasc] 5 mg PO DAILY 30 Days #30 tab 04/01/25 04/25/25 Rx Acetaminophen Tab [Tylenol] 650 mg PO Q6HR PRN tab 04/05/25 04/25/25 Rx Metoprolol Succinate (ER) [Toprol 100 mg PO DAILY #30 tab 04/05/25 04/25/25 Rx XL] hydrALAZINE HCL [Apresoline] 75 mg PO TID 30 Days #225 tab 04/05/25 04/25/25 Rx Insulin Aspart [NovoLOG Flexpen] See Protocol SQ AC-TID 04/18/25 04/25/25 History Furosemide [Lasix] 40 mg PO BID@0900,1600 #60 tab 04/19/25 04/25/25 Rx Allergies Allergy/AdvReac Type Severity Reaction Status Date / Time metoclopramide HCl Allergy Unknown Verified 04/25/25 07:56 [From Reglan] adhesive tape AdvReac tears skin Verified 04/25/25 07:56 grapefruit [Grapefruit] AdvReac reaction Verified 04/25/25 07:56 with simvastatin ibuprofen AdvReac kidney Verified 04/25/25 07:56 failure/transplant ropinirole [From Requip] AdvReac LEG CRAMPS Verified 04/25/25 07:56 nupur Allergy Rash/Hives Uncoded 04/25/25 07:56 Physical Exam Vitals: Vital Signs Temp Pulse Pulse Resp BP BP Pulse Ox 04/25/25 08:00 98.4 F 77 16 126/66 97 04/25/25 05:54 98.4 F 81 20 157/75 96 04/25/25 05:12 98.0 F 75 16 156/75 98 04/25/25 02:33 78 16 155/64 99 04/25/25 00:48 76 18 143/60 98 04/24/25 23:52 80 04/24/25 23:43 77 04/24/25 23:29 99.0 F 78 20 146/64 91 L Intake and Output 04/24/25 04/25/25 04/25/25 22:59 06:59 14:59 Intake Total 180 Output Total 400 Balance -220 Intake: Oral 180 Output: Urine 400 Other: Weight 104.326 kg Results - Lab Results Most recent lab results Calcium 8.9 mg/dL (8.4-10.2) 04/25/25 05:42 Magnesium 2.3 mg/dL (1.6-2.3) 04/25/25 05:42 04/24/25 23:41 04/25/25 05:42 Assessment and Plan Plan: Assessment: 1. Acute allograft dysfunction secondary to ATN secondary to cardiorenal syndrome. Creatinine 3.27 on admission and is 3.06 today. 2. Chronic kidney disease stage IIIb with recent creatinine near 2. 3. Acute on chronic systolic CHF ejection fraction of 45%. 4. Volume overload. 5. Status post living related renal allograft in 2008. 6. Diabetes mellitus. 7. Coronary disease status post CABG. 8. Acute hypoxic respiratory failure secondary to volume overload. Plan: Maintain IV Lasix. Maintain SGLT2 inhibitor. Maintain home antirejection meds. Check tacrolimus level. Avoid nephrotoxins. Continue to monitor renal function and urine output. Follow-up echocardiogram. Thank you for the consultation. I will continue to follow the patient with you during her hospital stay.
[2025-04-25 11:24] LABS: Glucose,Whole Blood 217 mg/dL (70-110)
[2025-04-25] MEDS: NYSTATIN 100,000 UNIT/GM POWD 15 GM TOPICAL SCH (11:31)
[2025-04-25] MEDS: ASCORBIC ACID 500 MG TAB PO SCH (11:31)
[2025-04-25] MEDS: DAPAGLIFLOZIN PROPANEDIOL 10 MG TABLET PO SCH (11:31)
[2025-04-25] MEDS: MYCOPHENOLATE SODIUM DR 180 MG TABLET.DR PO SCH (11:31)
[2025-04-25] MEDS: TACROLIMUS 1 MG CAP PO SCH ×2 (11:32→20:24)
[2025-04-25] MEDS: INSULIN LISPRO (HumaLOG) 100 UNIT/ML 10 mL VL SQ SCH (11:32)
[2025-04-25 12:50] VITALS: BMI 39.4
--- NOTE | 2025-04-25 13:42 | P.HPIM ---
History of Present Illness H&P Date: 04/25/25 History of present illness;74-year-old female with past medical history significant for coronary artery disease status post bypass grafting, left bundle branch block with bradycardia, kidney failure status post renal transplant, hypertension, diabetes mellitus, dyslipidemia, recent dual-chamber pacemaker implantation on 04/04/2025 the ER because of shortness of breath. Patient was recently admitted in the hospital and was discharged on 04/19 after being treated for CHF exacerbation. Patient stated she was all right yesterday when she started noticing shortness of breath. Shortness of breath was present on rest as well as exertion. Patient denied any chest pain. Patient denies any palpitation. There is no complaint of orthopnea or PND. Denies any nausea, vomiting abdominal pain. Patient denies any complaint of dizziness. There is no complaint of headache. Because of shortness of breath, patient came to the ER Initial lab work done in the ER showed WBC 8.73, hemoglobin 10.7, platelet count 224, sodium 132, potassium 5.4, BUN 60, creatinine 3.27 GFR 13, glucose 226, calcium 9.3, magnesium 2.3, bilirubin 0.7, AST 22, ALT 17, troponin 0.075 EKG done in the ER showed heart rate of 78, paced rhythm Chest x-ray done in the ER showed pulmonary vascular congestion, small left and trace right pleural effusion Patient admitted to internal medicine service REVIEW OF SYSTEMS: CONSTITUTIONAL: No fever, no malaise, no fatigue. HEENT: No recent visual problems or hearing problems. Denied any sore throat. CARDIOVASCULAR: Mentioned above PULMONARY: Mentioned above GASTROINTESTINAL: No diarrhea, no nausea, no vomiting, no abdominal pain. NEUROLOGICAL: No headaches, no weakness, no numbness. HEMATOLOGICAL: Denies any bleeding or petechiae. GENITOURINARY: Denies any burning micturition, frequency, or urgency. MUSCULOSKELETAL/RHEUMATOLOGICAL: Denies any joint pain, swelling, or any muscle pain. ENDOCRINE: Denies any polyuria or polydipsia. The rest of the 14-point review of systems is negative. PHYSICAL EXAMINATION: GENERAL: The patient is alert and oriented x3, not in any acute distress. Well developed, well nourished. HEENT: Pupils are round and equally reacting to light. EOMI. No scleral icterus. No conjunctival pallor. Normocephalic, atraumatic. No pharyngeal erythema. No thyromegaly. CARDIOVASCULAR: S1 and S2 present. No murmurs, rubs, or gallops. PULMONARY: Chest is clear to auscultation, no wheezing or crackles. ABDOMEN: Soft, nontender, nondistended, normoactive bowel sounds. No palpable organomegaly. MUSCULOSKELETAL: No joint swelling or deformity. EXTREMITIES: No cyanosis, clubbing, or pedal edema. NEUROLOGICAL: Gross neurological examination did not reveal any focal deficits. SKIN: No rashes. Assessment and plan Acute on chronic kidney disease Hyponatremia Hyperkalemia Acute on chronic systolic heart failure Elevated troponin Status post recent dual-chamber pacemaker implantation, left bundle pacing Coronary artery disease status post bypass grafting Hypertension Dyslipidemia Diabetes mellitus Chronic renal failure status post kidney transplant 2008 Monitor vital signs Monitor CBC Monitor CMP Continue telemetry monitoring Strict I's and O's Daily weights Low-salt diet Start IV Lasix Resume aspirin, Lipitor Monitor blood sugar levels, resume home insulin regimen Resume mycophenolate, tacrolimus Ordered tacrolimus level Consult cardiology Consult nephrology Labs and medication were reviewed.. Continue same treatment. Continue with symptomatic treatment. Resume home medication. Monitor labs and vitals. DVT and GI prophylaxis. Further recommendations as per clinical course of the patient Dictation was produced using [employer] dictation software. please excuse any grammatical, word or spelling errors. Past Medical History Past Medical History: Coronary Artery Disease (CAD), Diabetes Mellitus, Eye Disorder, Hyperlipidemia, Hypertension, Myocardial Infarction ([place]), Renal Disease, Skin Disorder Additional Past Medical History / Comment(s): R eye optic nerve, retinal bleed and little vision, renal failure Stage 3 - R renal transplant in 2008, UTIs with sepsis, Last Myocardial Infarction Date:: 2009 History of Any Multi-Drug Resistant Organisms: None Reported Past Surgical History: Appendectomy, Cholecystectomy, Coronary Bypass/CABG, Heart Catheterization, Hernia Repair, Hysterectomy, Pacemaker Additional Past Surgical History / Comment(s): 2009 right kidney transplant, 4 vessel CABG in 2009, umbilical hernia repair, colonoscopies, silvia cataract removed, R eye laser surgeries. Past Anesthesia/Blood Transfusion Reactions: No Reported Reaction Additional Past Anesthesia/Blood Transfusion Reaction / Comment(s): unknown Type of Cardiac Device: Permanent Pacemaker Device Placement Date:: March 2025 Smoking Status: Never smoker - Past Family History Brother(s) Family Medical History: Cancer Additional Family Medical History / Comment(s): one brother had kidney cancer. one brother had prostate cancer Mother Family Medical History: Coronary Artery Disease (CAD) Additional Family Medical History / Comment(s): mom had heart disease Father Family Medical History: Cancer Additional Family Medical History / Comment(s): lung and pancreatic cancer Medications and Allergies Home Medications Medication Instructions Recorded Confirmed Type Tacrolimus [Prograf] 2 mg PO DAILY 09/13/17 04/25/25 History Isosorbide Mononitrate ER [Imdur] 30 mg PO DAILY 11/26/17 04/25/25 History Insulin Glargine,Hum.rec.anlog 44 units SQ HS 04/18/20 04/25/25 History [Toujeo Solostar] Magnesium Oxide 400 mg PO DAILY 04/18/20 04/25/25 History Tacrolimus [Prograf] 1 mg PO HS 04/18/20 04/25/25 History Aspirin 81 mg PO DAILY #30 chew 04/22/20 04/25/25 Rx Atorvastatin [Lipitor] 40 mg PO HS #30 tab 04/22/20 04/25/25 Rx Cranberry Fruit Extract [Cranberry] 1,500 mg PO DAILY 06/21/24 04/25/25 History Ascorbic Acid [Vitamin C] 1,000 mg PO DAILY 11/15/24 04/25/25 History Cholecalciferol (Vitamin D3) 50 mcg PO BID 11/15/24 04/25/25 History [Vitamin D3 (50 Mcg = 2000 Iu)] Dapagliflozin Propanediol [Farxiga] 10 mg PO DAILY 03/30/25 04/25/25 History Mycophenolate Sodium [Mycophenolic 360 mg PO BID 03/30/25 04/25/25 History Acid] Ranolazine [Ranexa] 500 mg PO Q12HR 30 Days #60 tab 04/01/25 04/25/25 Rx amLODIPine [Norvasc] 5 mg PO DAILY 30 Days #30 tab 04/01/25 04/25/25 Rx Acetaminophen Tab [Tylenol] 650 mg PO Q6HR PRN tab 04/05/25 04/25/25 Rx Metoprolol Succinate (ER) [Toprol 100 mg PO DAILY #30 tab 04/05/25 04/25/25 Rx XL] hydrALAZINE HCL [Apresoline] 75 mg PO TID 30 Days #225 tab 04/05/25 04/25/25 Rx Insulin Aspart [NovoLOG Flexpen] See Protocol SQ AC-TID 04/18/25 04/25/25 History Furosemide [Lasix] 40 mg PO BID@0900,1600 #60 tab 04/19/25 04/25/25 Rx Allergies Allergy/AdvReac Type Severity Reaction Status Date / Time metoclopramide HCl Allergy Unknown Verified 04/25/25 07:56 [From Reglan] adhesive tape AdvReac tears skin Verified 04/25/25 07:56 grapefruit [Grapefruit] AdvReac reaction Verified 04/25/25 07:56 with simvastatin ibuprofen AdvReac kidney Verified 04/25/25 07:56 failure/transplant ropinirole [From Requip] AdvReac LEG CRAMPS Verified 04/25/25 07:56 nupur Allergy Rash/Hives Uncoded 04/25/25 07:56 Physical Exam Vitals: Vital Signs Temp Pulse Pulse Resp BP BP Pulse Ox 04/25/25 08:00 98.4 F 77 16 126/66 97 04/25/25 05:54 98.4 F 81 20 157/75 96 04/25/25 05:12 98.0 F 75 16 156/75 98 04/25/25 02:33 78 16 155/64 99 04/25/25 00:48 76 18 143/60 98 04/24/25 23:52 80 04/24/25 23:43 77 04/24/25 23:29 99.0 F 78 20 146/64 91 L Intake and Output 04/24/25 04/25/25 04/25/25 22:59 06:59 14:59 Intake Total 180 Output Total 400 Balance -220 Intake: Oral 180 Output: Urine 400 Other: Weight 104.326 kg Results CBC & Chem 7: 04/24/25 23:41 04/25/25 05:42 Labs: Abnormal Lab Results - Last 24 Hours (Table) 04/24/25 04/24/25 04/24/25 Range/Units 23:41 23:41 23:41 RBC 3.85 L (4.10-5.20) 10*6/uL Hgb 10.7 L (12.0-15.0) g/dL Hct 33.3 L (37.2-46.3) % Immature Gran # 0.08 H (0.00-0.04) 10*3/uL Lymphocytes # 0.84 L (0.90-5.00) 10*3/uL Eosinophils # 0.03 L (0.04-0.35) 10*3/uL Sodium 132 L (137-145) mmol/L Potassium 5.4 H (3.5-5.1) mmol/L Chloride 95 L (98-107) mmol/L Carbon Dioxide (22-30) mmol/L BUN 60 H (7-17) mg/dL Creatinine 3.27 H (0.52-1.04) mg/dL Glucose 226 H (74-99) mg/dL POC Glucose (mg/dL) (70-110) mg/dL Troponin I 0.075 H* (0.000-0.034) ng/mL 04/25/25 04/25/25 04/25/25 Range/Units 02:58 05:42 05:42 RBC (4.10-5.20) 10*6/uL Hgb (12.0-15.0) g/dL Hct (37.2-46.3) % Immature Gran # (0.00-0.04) 10*3/uL Lymphocytes # (0.90-5.00) 10*3/uL Eosinophils # (0.04-0.35) 10*3/uL Sodium 134 L (137-145) mmol/L Potassium 5.4 H (3.5-5.1) mmol/L Chloride (98-107) mmol/L Carbon Dioxide 21 L (22-30) mmol/L BUN 59 H (7-17) mg/dL Creatinine 3.06 H (0.52-1.04) mg/dL Glucose 176 H (74-99) mg/dL POC Glucose (mg/dL) (70-110) mg/dL Troponin I 0.137 H* 0.174 H* (0.000-0.034) ng/mL 04/25/25 Range/Units 06:02 RBC (4.10-5.20) 10*6/uL Hgb (12.0-15.0) g/dL Hct (37.2-46.3) % Immature Gran # (0.00-0.04) 10*3/uL Lymphocytes # (0.90-5.00) 10*3/uL Eosinophils # (0.04-0.35) 10*3/uL Sodium (137-145) mmol/L Potassium (3.5-5.1) mmol/L Chloride (98-107) mmol/L Carbon Dioxide (22-30) mmol/L BUN (7-17) mg/dL Creatinine (0.52-1.04) mg/dL Glucose (74-99) mg/dL POC Glucose (mg/dL) 215 H (70-110) mg/dL Troponin I (0.000-0.034) ng/mL Thrombosis Risk Factor Assmnt - Choose All That Apply Any of the Below Risk Factors Present?: Yes Each Factor Represents 1 point: Swollen legs (current) Other Risk Factors: Yes Each Risk Factor Represents 3 Points: Age 75 years or older Other congenital or acquired thrombophilia - If yes, enter type in comment: No Thrombosis Risk Factor Assessment Total Risk Factor Score: 4 Thrombosis Risk Factor Assessment Level: Moderate Risk
--- NOTE | 2025-04-25 14:30 | P.CRDCN ---
History of Present Illness Consult date: 04/25/25 Consult reason: congestive heart failure History of present illness: This is a 74-year-old female patient of Dr. Helen Girard with past medical history significant for coronary artery disease status post bypass grafting, left bundle branch block with bradycardia, kidney failure status post renal transplant, hypertension, diabetes mellitus, dyslipidemia, former nicotine dependence, obesity and chronic systolic heart failure. Patient recently underwent dual- chamber pacemaker implantation with conduction system pacing and left bundle pacing for symptomatic bradycardia, left bundle branch block morphology with ME interval 174, presyncope. This was performed on 04/04/2025. She had an admission last week for acute systolic heart failure and was switched to oral Lasix and discharged home. Patient returns with difficulty breathing. She states she had sudden onset yesterday of difficulty with breathing and she thought initially it was because the weather was hot and humid. She states that she has not been eating very well and her son made her appointment with Dr. Preston. She denies chest pain. She only has shortness of breath. She states at 1 point she felt like she was panting. She denies any weight gain. No lower extremity edema. No palpitations no syncope. She states she has a cough and wheezing. She states she quit smoking 20 years ago. Blood pressure 157/75, heart rate 81, pulse ox 96% on 6 L nasal cannula. Patient is afebrile. Patient states that her breathing is improved since she came into the hospital and she has been on IV Lasix 80 mg every 12 hours. Regarding her kidney transplant, this was done 16 years ago. Patient has been started on IV Lasix 80 mg twice daily and heparin drip. -EKG: Paced rhythm -VQ scan: No defects to suggest pulmonary embolus. -Chest x-ray: Cardiomegaly with trace bilateral pleural effusions. Suspect background COPD. -Laboratory studies: WBC 8.7, hemoglobin 10.7, initial creatinine 3.27 improved to 3.06. Troponins 0.075, 0.137, 0.174. -Home cardiac medications: Amlodipine 5 mg daily, aspirin 81 mg daily, atorvastatin 40 mg at bedtime, Farxiga 10 mg daily, Lasix 40 mg twice daily, hydralazine 75 mg 3 times daily, Imdur 30 mg daily, magnesium oxide 400 mg daily, Toprol XL 100 mg daily, Ranexa 500 mg every 12 hours. -Echocardiogram performed 04/19/2025 revealed mildly reduced LV systolic ejection fraction at 45%, increased LV mass, inferior posterior hypokinesis, inferior septal hypokinesis. -Dual-chamber Medtronic pacemaker implantation with conduction system pacing, left bundle pacing, performed 04/04/2025. Review Of Systems: At the time of my exam: CONSTITUTIONAL: Denies fever or chills. HEENT: Denies blurred vision, vision changes, or eye pain. Denies hemoptysis CARDIOVASCULAR: Denies chest pain. Denies orthopnea. Denies PND. Denies palpitations RESPIRATORY: Shortness of breath is improved. GASTROINTESTINAL: Denies abdominal pain. Denies nausea or vomiting. HEMATOLOGIC: Denies bleeding disorders. GENITOURINARY: Denies any blood in urine. SKIN: Denies puritis. Denies rash. Physical examination: Gen: This is 74-year-old female in no acute distress. VS: reviewed HEENT: Head is atraumatic, normocephalic. Pupils equal, round. Sclerae is anicteric. NECK: Supple. No JVD. LUNGS: Clear to auscultation. No wheezes or rhonchi. No intercostal retr actions. HEART: Regular rate and rhythm. 3/6 systolic murmur. ABDOMEN: Soft No tenderness. EXTREMITIES: No pedal edema. No calf tenderness. NEUROLOGICAL: Patient is awake, alert and oriented x3. Assessment: Troponin elevation secondary to heart failure and renal failure Acute systolic heart failure Acute kidney injury Status post recent dual-chamber pacemaker implantation, left bundle pacing Coronary artery disease status post bypass grafting Hypertension Dyslipidemia Diabetes mellitus Chronic renal failure status post kidney transplant 2008 Plan: Resume patient's home cardiac medications with the following changes: Hold Norvasc Reduce hydralazine to 25 mg 3 times daily Hold Farxiga due to renal failure Discontinue heparin drip Reduce IV Lasix to 40 mg twice daily Monitor GUILLERMINA, daily weights, electrolytes and renal function No need to repeat echocardiogram as this was done on 04/19 Further recommendations to follow based upon clinical course Thank you kindly for this consultation. Nurse practitioner note has been reviewed, I agree with documented findings and plan of care. Patient was seen and examine Past Medical History Past Medical History: Coronary Artery Disease (CAD), Diabetes Mellitus, Eye Disorder, Hyperlipidemia, Hypertension, Myocardial Infarction (PR), Renal Disease, Skin Disorder Additional Past Medical History / Comment(s): R eye optic nerve, retinal bleed and little vision, renal failure Stage 3 - R renal transplant in 2008, UTIs with sepsis, Last Myocardial Infarction Date:: 2009 History of Any Multi-Drug Resistant Organisms: None Reported Past Surgical History: Appendectomy, Cholecystectomy, Coronary Bypass/CABG, Heart Catheterization, Hernia Repair, Hysterectomy, Pacemaker Additional Past Surgical History / Comment(s): 2009 right kidney transplant, 4 vessel CABG in 2009, umbilical hernia repair, colonoscopies, silvia cataract removed, R eye laser surgeries. Past Anesthesia/Blood Transfusion Reactions: No Reported Reaction Additional Past Anesthesia/Blood Transfusion Reaction / Comment(s): unknown Type of Cardiac Device: Permanent Pacemaker Device Placement Date:: March 2025 Smoking Status: Never smoker - Past Family History Brother(s) Family Medical History: Cancer Additional Family Medical History / Comment(s): one brother had kidney cancer. one brother had prostate cancer Mother Family Medical History: Coronary Artery Disease (CAD) Additional Family Medical History / Comment(s): mom had heart disease Father Family Medical History: Cancer Additional Family Medical History / Comment(s): lung and pancreatic cancer Medications and Allergies Home Medications Medication Instructions Recorded Confirmed Type Tacrolimus [Prograf] 2 mg PO DAILY 09/13/17 04/25/25 History Isosorbide Mononitrate ER [Imdur] 30 mg PO DAILY 11/26/17 04/25/25 History Insulin Glargine,Hum.rec.anlog 44 units SQ HS 04/18/20 04/25/25 History [Toujeo Solostar] Magnesium Oxide 400 mg PO DAILY 04/18/20 04/25/25 History Tacrolimus [Prograf] 1 mg PO HS 04/18/20 04/25/25 History Aspirin 81 mg PO DAILY #30 chew 04/22/20 04/25/25 Rx Atorvastatin [Lipitor] 40 mg PO HS #30 tab 04/22/20 04/25/25 Rx Cranberry Fruit Extract [Cranberry] 1,500 mg PO DAILY 06/21/24 04/25/25 History Ascorbic Acid [Vitamin C] 1,000 mg PO DAILY 11/15/24 04/25/25 History Cholecalciferol (Vitamin D3) 50 mcg PO BID 11/15/24 04/25/25 History [Vitamin D3 (50 Mcg = 2000 Iu)] Dapagliflozin Propanediol [Farxiga] 10 mg PO DAILY 03/30/25 04/25/25 History Mycophenolate Sodium [Mycophenolic 360 mg PO BID 03/30/25 04/25/25 History Acid] Ranolazine [Ranexa] 500 mg PO Q12HR 30 Days #60 tab 04/01/25 04/25/25 Rx amLODIPine [Norvasc] 5 mg PO DAILY 30 Days #30 tab 04/01/25 04/25/25 Rx Acetaminophen Tab [Tylenol] 650 mg PO Q6HR PRN tab 04/05/25 04/25/25 Rx Metoprolol Succinate (ER) [Toprol 100 mg PO DAILY #30 tab 04/05/25 04/25/25 Rx XL] hydrALAZINE HCL [Apresoline] 75 mg PO TID 30 Days #225 tab 04/05/25 04/25/25 Rx Insulin Aspart [NovoLOG Flexpen] See Protocol SQ AC-TID 04/18/25 04/25/25 History Furosemide [Lasix] 40 mg PO BID@0900,1600 #60 tab 04/19/25 04/25/25 Rx Allergies Allergy/AdvReac Type Severity Reaction Status Date / Time metoclopramide HCl Allergy Unknown Verified 04/25/25 07:56 [From Reglan] adhesive tape AdvReac tears skin Verified 04/25/25 07:56 grapefruit [Grapefruit] AdvReac reaction Verified 04/25/25 07:56 with simvastatin ibuprofen AdvReac kidney Verified 04/25/25 07:56 failure/transplant ropinirole [From Requip] AdvReac LEG CRAMPS Verified 04/25/25 07:56 nupur Allergy Rash/Hives Uncoded 04/25/25 07:56 Physical Exam Vitals: Vital Signs Temp Pulse Pulse Resp BP BP Pulse Ox 04/25/25 05:54 98.4 F 81 20 157/75 96 04/25/25 05:12 98.0 F 75 16 156/75 98 04/25/25 02:33 78 16 155/64 99 04/25/25 00:48 76 18 143/60 98 04/24/25 23:52 80 04/24/25 23:43 77 04/24/25 23:29 99.0 F 78 20 146/64 91 L Intake and Output 07/15/25 07/16/25 07/16/25 22:59 06:59 14:59 Intake Total 180 Balance 180 Intake: Oral 180 Other: Weight 104.326 kg Results 04/24/25 23:41 04/25/25 05:42 Cardiac Enzymes 04/24/25 04/24/25 04/25/25 Range/Units 23:41 23:41 02:58 AST 22 (14-36) U/L Troponin I 0.075 H* 0.137 H* (0.000-0.034) ng/mL 04/25/25 Range/Units 05:42 AST (14-36) U/L Troponin I 0.174 H* (0.000-0.034) ng/mL Coagulation 04/24/25 Range/Units 23:41 PT 10.9 (10.0-12.5) sec APTT 23.5 (22.0-30.0) sec CBC 04/24/25 Range/Units 23:41 WBC 8.73 (4.50-10.00) 10*3/uL RBC 3.85 L (4.10-5.20) 10*6/uL Hgb 10.7 L (12.0-15.0) g/dL Hct 33.3 L (37.2-46.3) % Plt Count 224 (140-440) 10*3/uL Comprehensive Metabolic Panel 04/24/25 04/25/25 Range/Units 23:41 05:42 Sodium 132 L 134 L (137-145) mmol/L Potassium 5.4 H 5.4 H (3.5-5.1) mmol/L Chloride 95 L 100 (98-107) mmol/L Carbon Dioxide 25 21 L (22-30) mmol/L BUN 60 H 59 H (7-17) mg/dL Creatinine 3.27 H 3.06 H (0.52-1.04) mg/dL Glucose 226 H 176 H (74-99) mg/dL Calcium 9.3 8.9 (8.4-10.2) mg/dL AST 22 (14-36) U/L ALT 17 (4-34) U/L Alkaline Phosphatase 95 (38-126) U/L Total Protein 6.9 (6.3-8.2) g/dL Albumin 3.6 (3.5-5.0) g/dL Current Medications Generic Name Dose Route Start Last Admin Trade Name Freq PRN Reason Stop Dose Admin Albuterol/Ipratropium 3 ml 04/25/25 02:40 Ipratropium-Albuterol 3 Ml Neb INHALATION RT-QID PRN Shortness Of Breath Or Wheezing Aspirin 325 mg 04/26/25 09:00 Aspirin 325 Mg Tab PO DAILY ART Furosemide 80 mg 04/25/25 02:45 04/25/25 03:06 Furosemide 10 Mg/Ml 4 Ml Vial IV 80 mg Q12H ART Administration Heparin Sodium (Porcine) 0 unit 04/25/25 04:43 Heparin Sodium 1,000 Un/Ml (10ml Vl) IV PER PROTOCOL PRN Low PTT Protocol Heparin Sodium/Sodium Chloride 250 mls @ 9.994 mls/hr 04/25/25 04:45 04/25/25 05:09 25,000 unit/ Sodium Chloride IV 9.58 units/kg/hr .Q24H ART 9.994 mls/hr Administration Protocol 9.58 UNITS/KG/HR Intake and Output 04/24/25 04/25/25 04/25/25 22:59 06:59 14:59 Intake Total 180 Balance 180 Intake: Oral 180 Other: Weight 104.326 kg 04/24/25 23:41 04/25/25 05:42
[2025-04-25 16:08] LABS: Glucose,Whole Blood 223 mg/dL (70-110)
[2025-04-25 19:58] LABS: Glucose,Whole Blood 223 mg/dL (70-110)
[2025-04-25] MEDS: INSULIN GLARGINE (LANTUS) 100 UNIT/ML SYR SQ SCH (20:23)
[2025-04-25] MEDS: ATORVASTATIN 40 MG TAB PO SCH (20:24)
[2025-04-26 06:24] LABS: Glucose,Whole Blood 137 mg/dL (70-110)
[2025-04-26 07:33] LABS: African American GFR (CKD) 17 (>60 ml/min/1.73 sqM); Anion Gap 9 mmol/L; Blood Urea Nitrogen 56 mg/dL (7-17); Calcium 8.9 mg/dL (8.4-10.2); Carbon Dioxide 32 mmol/L (22-30); Chloride 94 mmol/L (98-107); Glucose 125 mg/dL (74-99); Magnesium 2.1 mg/dL (1.6-2.3); Non-African American GFR(CKD) 14 (>60 ml/min/1.73 sqM); Potassium 4.9 mmol/L (3.5-5.1); Sodium 135 mmol/L (137-145)
[2025-04-26] MEDS: ASPIRIN 81 MG PO SCH (09:00)
[2025-04-26] MEDS ORDERED: ASPIRIN 325 MG TAB PO SCH (09:00)
--- NOTE | 2025-04-26 10:40 | P.PN ---
Subjective Progress Note Date: 04/26/25 Consult reason: congestive heart failure History of present illness: This is a 74-year-old female patient of Dr. Helen Girard with past medical history significant for coronary artery disease status post bypass grafting, left bundle branch block with bradycardia, kidney failure status post renal transplant, hypertension, diabetes mellitus, dyslipidemia, former nicotine dependence, obesity and chronic systolic heart failure. Patient recently underwent dual- chamber pacemaker implantation with conduction system pacing and left bundle pacing for symptomatic bradycardia, left bundle branch block morphology with AR interval 174, presyncope. This was performed on 04/04/2025. She had an admission last week for acute systolic heart failure and was switched to oral Lasix and discharged home. Patient returns with difficulty breathing. She states she had sudden onset yesterday of difficulty with breathing and she thought initially it was because the weather was hot and humid. She states that she has not been eating very well and her son made her appointment with Dr. Preston. She denies chest pain. She only has shortness of breath. She states at 1 point she felt like she was panting. She denies any weight gain. No lower extremity edema. No palpitations no syncope. She states she has a cough and wheezing. She states she quit smoking 20 years ago. Blood pressure 157/75, heart rate 81, pulse ox 96% on 6 L nasal cannula. Patient is afebrile. Patient states that her breathing is improved since she came into the hospital and she has been on IV Lasix 80 mg every 12 hours. Regarding her kidney transplant, this was done 16 years ago. Patient has been started on IV Lasix 80 mg twice daily and heparin drip. -EKG: Paced rhythm -VQ scan: No defects to suggest pulmonary embolus. -Chest x-ray: Cardiomegaly with trace bilateral pleural effusions. Suspect background COPD. -Laboratory studies: WBC 8.7, hemoglobin 10.7, initial creatinine 3.27 improved to 3.06. Troponins 0.075, 0.137, 0.174. -Home cardiac medications: Amlodipine 5 mg daily, aspirin 81 mg daily, atorvastatin 40 mg at bedtime, Farxiga 10 mg daily, Lasix 40 mg twice daily, hydralazine 75 mg 3 times daily, Imdur 30 mg daily, magnesium oxide 400 mg daily, Toprol XL 100 mg daily, Ranexa 500 mg every 12 hours. -Echocardiogram performed 04/19/2025 revealed mildly reduced LV systolic ejection fraction at 45%, increased LV mass, inferior posterior hypokinesis, inferior s eptal hypokinesis. -Dual-chamber Medtronic pacemaker implantation with conduction system pacing, left bundle pacing, performed 04/04/2025. 04/26/2025 Patient seen and examined. She states her breathing is better today. She still has chest pain with deep breathing. She does not feel that she is gaining any strength. She states she is starting to eat a little bit better now. Blood pressure 145/73, heart rate 69, pulse ox 97% on 3 L nasal cannula. Repeat blood work reveals sodium 135, potassium 4.9, CO2 32, BUN 56 creatinine 3.04. A1c 6.6. Noted that Farxiga has been resumed by nephrology. Physical examination: Gen: This is 74-year-old female in no acute distress. VS: reviewed HEENT: Head is atraumatic, normocephalic. Pupils equal, round. Sclerae is anicteric. NECK: Supple. No JVD. LUNGS: Clear to auscultation. No wheezes or rhonchi. No intercostal retractions. HEART: Regular rate and rhythm. 3/6 systolic murmur. ABDOMEN: Soft No tenderness. EXTREMITIES: No pedal edema. No calf tenderness. NEUROLOGICAL: Patient is awake, alert and oriented x3. Assessment: Troponin elevation secondary to heart failure and renal failure Acute systolic heart failure Acute kidney injury Status post recent dual-chamber pacemaker implantation, left bundle pacing Coronary artery disease status post bypass grafting Hypertension Dyslipidemia Diabetes mellitus Chronic renal failure status post kidney transplant 2008 Plan: Continue patient's home cardiac medications with the following changes: Hold Norvasc Reduce hydralazine to 25 mg 3 times daily Continue IV Lasix to 40 mg twice daily Monitor GUILLERMINA, daily weights, electrolytes and renal function No need to repeat echocardiogram as this was done on 04/19 Increase activity Further recommendations to follow based upon clinical course Nurse practitioner note has been reviewed, I agree with documented findings and plan of care. Patient was seen and examine Objective - Vital Signs Vital signs: Vital Signs Temp 98.4 F 04/26/25 04:00 Pulse 62 04/26/25 04:00 Resp 18 04/26/25 04:00 BP 128/74 04/26/25 04:00 Pulse Ox 94 L 04/26/25 04:00 FiO2 Intake & Output 04/25/25 04/26/25 04/26/25 18:59 06:59 18:59 Intake Total 360 118 Output Total 1525 1050 Balance -1165 -1050 118 Weight 104.326 kg 102 kg Intake: Oral 360 118 Output: Urine 1525 1050 Other: # Voids 1 - Labs CBC & Chem 7: 04/24/25 23:41 04/26/25 06:24 Labs: Abnormal Lab Results - Last 24 Hours (Table) 04/25/25 04/25/25 04/25/25 Range/Units 11:23 16:07 19:57 Sodium (137-145) mmol/L Chloride (98-107) mmol/L Carbon Dioxide (22-30) mmol/L BUN (7-17) mg/dL Creatinine (0.52-1.04) mg/dL Glucose (74-99) mg/dL POC Glucose (mg/dL) 217 H 223 H 223 H (70-110) mg/dL 04/26/25 04/26/25 Range/Units 06:22 06:24 Sodium 135 L (137-145) mmol/L Chloride 94 L (98-107) mmol/L Carbon Dioxide 32 H (22-30) mmol/L BUN 56 H (7-17) mg/dL Creatinine 3.04 H (0.52-1.04) mg/dL Glucose 125 H (74-99) mg/dL POC Glucose (mg/dL) 137 H (70-110) mg/dL
--- NOTE | 2025-04-26 11:02 | P.PN ---
Subjective Patient is seen in follow-up for acute kidney injury on chronic kidney disease. Renal function stable. Hemodynamically stable. Nonoliguric. Denies chest pain or shortness of breath. Vital signs are stable. General: No acute distress. HEENT: Head exam is unremarkable. On nasal cannula. LUNGS: No audible rhonchi or wheezes. HEART: Rate and Rhythm are regular. ABDOMEN: Nontender. EXTREMITITES: No edema. Objective - Vital Signs Vital signs: Vital Signs Temp 97.7 F 04/26/25 08:00 Pulse 69 04/26/25 08:00 Resp 16 04/26/25 08:00 BP 145/73 04/26/25 08:00 Pulse Ox 97 04/26/25 08:00 FiO2 Intake & Output 04/25/25 04/26/25 04/26/25 18:59 06:59 18:59 Intake Total 360 118 Output Total 1525 1050 Balance -1165 -1050 118 Weight 104.326 kg 102 kg Intake: Oral 360 118 Output: Urine 1525 1050 Other: # Voids 1 - Labs CBC & Chem 7: 04/24/25 23:41 04/26/25 06:24 Labs: Abnormal Lab Results - Last 24 Hours (Table) 04/25/25 04/25/25 04/25/25 Range/Units 11:23 16:07 19:57 Sodium (137-145) mmol/L Chloride (98-107) mmol/L Carbon Dioxide (22-30) mmol/L BUN (7-17) mg/dL Creatinine (0.52-1.04) mg/dL Glucose (74-99) mg/dL POC Glucose (mg/dL) 217 H 223 H 223 H (70-110) mg/dL Hemoglobin A1c (<=6.0) % 04/26/25 04/26/25 04/26/25 Range/Units 06:22 06:24 06:24 Sodium 135 L (137-145) mmol/L Chloride 94 L (98-107) mmol/L Carbon Dioxide 32 H (22-30) mmol/L BUN 56 H (7-17) mg/dL Creatinine 3.04 H (0.52-1.04) mg/dL Glucose 125 H (74-99) mg/dL POC Glucose (mg/dL) 137 H (70-110) mg/dL Hemoglobin A1c 6.6 H (<=6.0) % Assessment and Plan Plan: Assessment: 1. Acute allograft dysfunction secondary to ATN secondary to cardiorenal syndrome. Creatinine 3.27 on admission and is 3.04 today. UA from March 2025 showed no proteinuria. No hydronephrosis of the transplanted kidney noted on ultrasound on April 05, 2025. 2. Chronic kidney disease stage IIIb with recent creatinine near 2. 3. Acute on chronic systolic CHF ejection fraction of 45%. 4. Volume overload. 5. Status post living related renal allograft in 2008. 6. Diabetes mellitus. 7. Coronary disease status post CABG. 8. Acute hypoxic respiratory failure secondary to volume overload. Plan: Maintain IV Lasix. Maintain low-salt diet. Add 1500 cc fluid restriction. Maintain home antirejection meds. Follow-up tacrolimus level. Avoid nephrotoxins. Continue to monitor renal function and urine output. Repeat chest x-ray tomorrow morning.
[2025-04-26 12:19] LABS: Glucose,Whole Blood 209 mg/dL (70-110)
--- NOTE | 2025-04-26 13:00 | P.PN ---
Subjective Progress Note Date: 04/26/25 74-year-old female with past medical history significant for coronary artery disease status post bypass grafting, left bundle branch block with bradycardia, kidney failure status post renal transplant, hypertension, diabetes mellitus, dyslipidemia, recent dual-chamber pacemaker implantation on 04/04/2025 the ER because of shortness of breath. Patient was recently admitted in the hospital and was discharged on 04/19 after being treated for CHF exacerbation. Patient stated she was all right yesterday when she started noticing shortness of breath. Shortness of breath was present on rest as well as exertion. Patient denied any chest pain. Patient denies any palpitation. There is no complaint of orthopnea or PND. Denies any nausea, vomiting abdominal pain. Patient denies any complaint of dizziness. There is no complaint of headache. Because of shortness of breath, patient came to the ER Initial lab work done in the ER showed WBC 8.73, hemoglobin 10.7, platelet count 224, sodium 132, potassium 5.4, BUN 60, creatinine 3.27 GFR 13, glucose 226, calcium 9.3, magnesium 2.3, bilirubin 0.7, AST 22, ALT 17, troponin 0.075 EKG done in the ER showed heart rate of 78, paced rhythm Chest x-ray done in the ER showed pulmonary vascular congestion, small left and trace right pleural effusion Patient admitted to internal medicine service 04/26. Patient seen examined. States breathing is improved, patient less short of breath compared to yesterday. Denies any any swelling of lower extremity REVIEW OF SYSTEMS: CONSTITUTIONAL: No fever, no malaise,. CARDIOVASCULAR: As mentioned above PULMONARY: As mentioned above GASTROINTESTINAL: No diarrhea, no nausea, no vomiting, no abdominal pain. NEUROLOGICAL: No headaches, no weakness, PHYSICAL EXAMINATION: GENERAL: The patient is alert and oriented x3, not in any acute distress. Well developed, well nourished. HEENT: Pupils are round and equally reacting to light. EOMI. No scleral icterus. No conjunctival pallor. Normocephalic, atraumatic. No pharyngeal erythema. No thyromegaly. CARDIOVASCULAR: S1 and S2 present. No murmurs, rubs, or gallops. PULMONARY: Diminished breath sounds at the bases bilaterally ABDOMEN: Soft, nontender, nondistended, normoactive bowel sounds. No palpable organomegaly. MUSCULOSKELETAL: No joint swelling or deformity. EXTREMITIES: No cyanosis, clubbing, or pedal edema. NEUROLOGICAL: Gross neurological examination did not reveal any focal deficits. SKIN: No rashes. Assessment and plan Acute on chronic kidney disease Hyponatremia Hyperkalemia Acute on chronic systolic heart failure Elevated troponin Status post recent dual-chamber pacemaker implantation, left bundle pacing Coronary artery disease status post bypass grafting Hypertension Dyslipidemia Diabetes mellitus Chronic renal failure status post kidney transplant 2008 Monitor vital signs Monitor CBC Monitor CMP Continue telemetry monitoring Strict I's and O's Daily weights Continue IV Lasix 40 every 12 Continue aspirin, Lipitor Monitor blood sugar levels, resume home insulin regimen Continue mycophenolate, tacrolimus Cardiology evaluated, recommended holding Norvasc, decreasing dose of hydralazine to 25 mg 3 times daily and continue with IV diuretics., Recommendations noted from 04/26 Nephrology following Labs and medication were reviewed.. Continue same treatment. Continue with symptomatic treatment. Resume home medication. Monitor labs and vitals. DVT and GI prophylaxis. Further recommendations as per clinical course of the patient Dictation was produced using [employer] and [employer] dictation software. please excuse any gramm atical, word or spelling errors. Objective - Vital Signs Vital signs: Vital Signs Temp 97.7 F 04/26/25 12:00 Pulse 64 04/26/25 12:00 Resp 18 04/26/25 12:00 BP 155/71 04/26/25 12:00 Pulse Ox 98 04/26/25 12:00 FiO2 Intake & Output 04/25/25 04/26/25 04/26/25 18:59 06:59 18:59 Intake Total 360 118 Output Total 1525 1050 Balance -1165 -1050 118 Weight 104.326 kg 102 kg Intake: Oral 360 118 Output: Urine 1525 1050 Other: # Voids 1 - Labs CBC & Chem 7: 04/24/25 23:41 04/26/25 06:24 Labs: Abnormal Lab Results - Last 24 Hours (Table) 04/25/25 04/25/25 04/26/25 Range/Units 16:07 19:57 06:22 Sodium (137-145) mmol/L Chloride (98-107) mmol/L Carbon Dioxide (22-30) mmol/L BUN (7-17) mg/dL Creatinine (0.52-1.04) mg/dL Glucose (74-99) mg/dL POC Glucose (mg/dL) 223 H 223 H 137 H (70-110) mg/dL Hemoglobin A1c (<=6.0) % 04/26/25 04/26/25 04/26/25 Range/Units 06:24 06:24 12:12 Sodium 135 L (137-145) mmol/L Chloride 94 L (98-107) mmol/L Carbon Dioxide 32 H (22-30) mmol/L BUN 56 H (7-17) mg/dL Creatinine 3.04 H (0.52-1.04) mg/dL Glucose 125 H (74-99) mg/dL POC Glucose (mg/dL) 209 H (70-110) mg/dL Hemoglobin A1c 6.6 H (<=6.0) %
[2025-04-26 17:15] LABS: Glucose,Whole Blood 140 mg/dL (70-110)
[2025-04-26 20:30] LABS: Glucose,Whole Blood 183 mg/dL (70-110)
[2025-04-27 05:58] LABS: Glucose,Whole Blood 97 mg/dL (70-110)
[2025-04-27 07:23] LABS: African American GFR (CKD) 18 (>60 ml/min/1.73 sqM); Anion Gap 9 mmol/L; Blood Urea Nitrogen 60 mg/dL (7-17); Calcium 8.8 mg/dL (8.4-10.2); Carbon Dioxide 33 mmol/L (22-30); Chloride 93 mmol/L (98-107); Glucose 75 mg/dL (74-99); Magnesium 2.0 mg/dL (1.6-2.3); Non-African American GFR(CKD) 15 (>60 ml/min/1.73 sqM); Potassium 4.8 mmol/L (3.5-5.1); Sodium 135 mmol/L (137-145)
--- NOTE | 2025-04-27 07:40 | XR ---
EXAMINATION TYPE: XR chest 1V DATE OF EXAM: 04/27/2025 6:45 AM COMPARISON: Chest radiographs from 04/25/2025. CLINICAL INDICATION: Female, 74 years old with history of sob; [facility] TECHNIQUE: XR chest 1V Frontal view of the chest. FINDINGS: Lungs/Pleura: Improved aeration of lungs on today's exam with persistent airspace opacities scattered throughout the lungs. No evidence of pneumothorax or large pleural effusion. Pulmonary vascularity: Pulmonary vascular congestion. Heart/mediastinum: Cardiomediastinal silhouette is enlarged. Two lead cardiac conduction device overl yennifer the left hemithorax with lead tips projecting over the right ventricle and right atrium. Musculoskeletal: No acute osseous pathology. Midline sternotomy wires are noted. Other findings: None IMPRESSION: Improved aeration of the lungs with persistent multifocal airspace opacities. [facility], , 04/27/2025 7:37 AM
[2025-04-27] MEDS: FUROSEMIDE 40 MG TAB PO SCH (09:02)
--- NOTE | 2025-04-27 10:19 | P.PN ---
Subjective Progress Note Date: 04/27/25 Consult reason: congestive heart failure History of present illness: This is a 74-year-old female patient of Dr. Helen Girard with past medical history significant for coronary artery disease status post bypass grafting, left bundle branch block with bradycardia, kidney failure status post renal transplant, hypertension, diabetes mellitus, dyslipidemia, former nicotine dependence, obesity and chronic systolic heart failure. Patient recently underwent dual- chamber pacemaker implantation with conduction system pacing and left bundle pacing for symptomatic bradycardia, left bundle branch block morphology with MN interval 174, presyncope. This was performed on 04/04/2025. She had an admission last week for acute systolic heart failure and was switched to oral Lasix and discharged home. Patient returns with difficulty breathing. She states she had sudden onset yesterday of difficulty with breathing and she thought initially it was because the weather was hot and humid. She states that she has not been eating very well and her son made her appointment with Dr. Preston. She denies chest pain. She only has shortness of breath. She states at 1 point she felt like she was panting. She denies any weight gain. No lower extremity edema. No palpitations no syncope. She states she has a cough and wheezing. She states she quit smoking 20 years ago. Blood pressure 157/75, heart rate 81, pulse ox 96% on 6 L nasal cannula. Patient is afebrile. Patient states that her breathing is improved since she came into the hospital and she has been on IV Lasix 80 mg every 12 hours. Regarding her kidney transplant, this was done 16 years ago. Patient has been started on IV Lasix 80 mg twice daily and heparin drip. -EKG: Paced rhythm -VQ scan: No defects to suggest pulmonary embolus. -Chest x-ray: Cardiomegaly with trace bilateral pleural effusions. Suspect background COPD. -Laboratory studies: WBC 8.7, hemoglobin 10.7, initial creatinine 3.27 improved to 3.06. Troponins 0.075, 0.137, 0.174. -Home cardiac medications: Amlodipine 5 mg daily, aspirin 81 mg daily, atorvastatin 40 mg at bedtime, Farxiga 10 mg daily, Lasix 40 mg twice daily, hydralazine 75 mg 3 times daily, Imdur 30 mg daily, magnesium oxide 400 mg daily, Toprol XL 100 mg daily, Ranexa 500 mg every 12 hours. -Echocardiogram performed 04/19/2025 revealed mildly reduced LV systolic ejection fraction at 45%, increased LV mass, inferior posterior hypokinesis, inferior s eptal hypokinesis. -Dual-chamber Medtronic pacemaker implantation with conduction system pacing, left bundle pacing, performed 04/04/2025. 04/26/2025 Patient seen and examined. She states her breathing is better today. She still has chest pain with deep breathing. She does not feel that she is gaining any strength. She states she is starting to eat a little bit better now. Blood pressure 145/73, heart rate 69, pulse ox 97% on 3 L nasal cannula. Repeat blood work reveals sodium 135, potassium 4.9, CO2 32, BUN 56 creatinine 3.04. A1c 6.6. Noted that Farxiga has been resumed by nephrology. 04/27/2025 Patient seen and examined. She states that she has some chest pain with deep breathing. No dizziness no palpitations. Shortness of breath is improved. Blood pressure 131/69, heart rate 68, pulse ox 95% on 1 L nasal cannula. Chest x-ray reveals improved aeration of the lungs with persistent multifocal airspace opacities. Repeat blood work reveals improvement of her renal function with BUN of 60 creatinine 2.85, sodium is 135, potassium 4.8 and CO2 33. She is currently on IV Lasix 40 mg every 12 hours. She has a negative fluid balance and documented weight loss. Physical examination: Gen: This is 74-year-old female in no acute distress. VS: reviewed HEENT: Head is atraumatic, normocephalic. Pupils equal, round. Sclerae is anicteric. NECK: Supple. No JVD. LUNGS: Clear to auscultation. No wheezes or rhonchi. No intercostal retractions. HEART: Regular rate and rhythm. 3/6 systolic murmur. ABDOMEN: Soft No tenderness. EXTREMITIES: No pedal edema. No calf tenderness. NEUROLOGICAL: Patient is awake, alert and oriented x3. Assessment: Troponin elevation secondary to heart failure and renal failure Acute systolic heart failure Acute kidney injury, improving Status post recent dual-chamber pacemaker implantation, left bundle pacing Coronary artery disease status post bypass grafting Hypertension Dyslipidemia Diabetes mellitus Chronic renal failure status post kidney transplant 2008 Plan: Continue patient's home cardiac medications with the following changes: Hold Norvasc and reduce hydralazine to 25 mg 3 times daily due to low blood pressure readings Transition IV Lasix to oral 40 mg twice daily which is her home dose Monitor GUILLERMINA, daily weights, electrolytes and renal function No need to repeat echocardiogram as this was done on 04/19 Increase activity Further recommendations to follow based upon clinical course Nurse practitioner note has been reviewed, I agree with documented findings and plan of care. Patient was seen and examine Objective - Vital Signs Vital signs: Vital Signs Temp 98.1 F 04/27/25 03:03 Pulse 68 04/27/25 03:03 Resp 16 04/27/25 03:03 BP 131/69 04/27/25 03:03 Pulse Ox 95 04/27/25 03:03 FiO2 Intake & Output 04/26/25 04/27/25 04/27/25 18:59 06:59 18:59 Intake Total 678 Output Total 1450 Balance 678 -1450 Weight 93 kg Intake: Oral 678 Output: Urine 1450 Other: # Voids 1 - Labs CBC & Chem 7: 04/24/25 23:41 04/27/25 05:29 Labs: Abnormal Lab Results - Last 24 Hours (Table) 04/26/25 04/26/25 04/26/25 Range/Units 06:24 12:12 17:00 Sodium (137-145) mmol/L Chloride (98-107) mmol/L Carbon Dioxide (22-30) mmol/L BUN (7-17) mg/dL Creatinine (0.52-1.04) mg/dL POC Glucose (mg/dL) 209 H 140 H (70-110) mg/dL Hemoglobin A1c 6.6 H (<=6.0) % 04/26/25 04/27/25 Range/Units 20:30 05:29 Sodium 135 L (137-145) mmol/L Chloride 93 L (98-107) mmol/L Carbon Dioxide 33 H (22-30) mmol/L BUN 60 H (7-17) mg/dL Creatinine 2.85 H (0.52-1.04) mg/dL POC Glucose (mg/dL) 183 H (70-110) mg/dL Hemoglobin A1c (<=6.0) %
--- NOTE | 2025-04-27 10:46 | P.PN ---
Subjective Patient is seen in follow-up for acute kidney injury on chronic kidney disease. Renal function better. Hemodynamically stable. Nonoliguric. Denies chest pain or shortness of breath. Vital signs are stable. General: No acute distress. HEENT: Head exam is unremarkable. On nasal cannula. LUNGS: No audible rhonchi or wheezes. HEART: Rate and Rhythm are regular. ABDOMEN: Nontender. EXTREMITITES: No edema. Objective - Vital Signs Vital signs: Vital Signs Temp 98.2 F 04/27/25 08:00 Pulse 78 04/27/25 08:00 Resp 16 04/27/25 08:00 BP 144/54 04/27/25 08:00 Pulse Ox 96 04/27/25 08:00 FiO2 Intake & Output 04/26/25 04/27/25 04/27/25 18:59 06:59 18:59 Intake Total 678 Output Total 1450 Balance 678 -1450 Weight 93 kg Intake: Oral 678 Output: Urine 1450 Other: # Voids 1 - Labs CBC & Chem 7: 04/24/25 23:41 04/27/25 05:29 Labs: Abnormal Lab Results - Last 24 Hours (Table) 04/26/25 04/26/25 04/26/25 Range/Units 12:12 17:00 20:30 Sodium (137-145) mmol/L Chloride (98-107) mmol/L Carbon Dioxide (22-30) mmol/L BUN (7-17) mg/dL Creatinine (0.52-1.04) mg/dL POC Glucose (mg/dL) 209 H 140 H 183 H (70-110) mg/dL 04/27/25 Range/Units 05:29 Sodium 135 L (137-145) mmol/L Chloride 93 L (98-107) mmol/L Carbon Dioxide 33 H (22-30) mmol/L BUN 60 H (7-17) mg/dL Creatinine 2.85 H (0.52-1.04) mg/dL POC Glucose (mg/dL) (70-110) mg/dL Assessment and Plan Plan: Assessment: 1. Acute allograft dysfunction secondary to ATN secondary to cardiorenal syndrome. Creatinine 3.27 on admission and is 2.85 today. UA from March 2025 showed no proteinuria. No hydronephrosis of the transplanted kidney noted on ultrasound on April 05, 2025. 2. Chronic kidney disease stage IIIb with recent creatinine near 2. 3. Acute on chronic systolic CHF ejection fraction of 45%. 4. Volume overload. Improving with diuresis. 5. Status post living related renal allograft in 2008. 6. Diabetes mellitus. 7. Coronary disease status post CABG. 8. Acute hypoxic respiratory failure secondary to volume overload. Improved. Plan: Transition to oral diuretics. Maintain low-salt diet and 1500 cc fluid restriction. Maintain home antirejection meds. Follow-up tacrolimus level. Avoid nephrotoxins. Continue to monitor renal function and urine output. Follow-up outpatient 1 week postdischarge.
[2025-04-27 11:38] LABS: Glucose,Whole Blood 119 mg/dL (70-110)
[2025-04-27 17:09] LABS: Glucose,Whole Blood 107 mg/dL (70-110)
[2025-04-27 20:17] LABS: Glucose,Whole Blood 166 mg/dL (70-110)
[2025-04-28 06:04] LABS: Glucose,Whole Blood 55 mg/dL (70-110)
[2025-04-28 06:20] LABS: Glucose,Whole Blood 64 mg/dL (70-110)
[2025-04-28 06:46] LABS: Glucose,Whole Blood 95 mg/dL (70-110)
[2025-04-28 08:14] LABS: African American GFR (CKD) 18 (>60 ml/min/1.73 sqM); Anion Gap 11 mmol/L; Blood Urea Nitrogen 67 mg/dL (7-17); Calcium 8.7 mg/dL (8.4-10.2); Carbon Dioxide 28 mmol/L (22-30); Chloride 93 mmol/L (98-107); Glucose 54 mg/dL (74-99); Non-African American GFR(CKD) 16 (>60 ml/min/1.73 sqM); Potassium 5.4 mmol/L (3.5-5.1); Sodium 132 mmol/L (137-145)
--- NOTE | 2025-04-28 11:48 | P.PN ---
Subjective Patient is seen for follow-up for acute kidney injury and chronic kidney disease. Renal function is slightly better from admission however serum creatinine remains elevated at 2.8 from her baseline of about 1.7-1.8 recently. [place] level was elevated at 11.2 No significant complaints today. Objective - Vital Signs Vital signs: Vital Signs Temp 97.9 F 04/28/25 08:52 Pulse 64 04/28/25 08:52 Resp 16 04/28/25 08:52 BP 118/67 04/28/25 08:52 Pulse Ox 92 L 04/28/25 09:01 FiO2 Intake & Output 04/27/25 04/28/25 04/28/25 18:59 06:59 18:59 Intake Total 560 600 Output Total 400 Balance 560 -400 600 Weight 98 kg Intake: Oral 560 600 Output: Urine 400 Other: Voiding Method External Catheter # Voids 1 - Exam Patient is awake, alert oriented x 3 No acute distress Currently in the shower No significant edema noted - Labs CBC & Chem 7: 04/24/25 23:41 04/28/25 06:28 Labs: Abnormal Lab Results - Last 24 Hours (Table) 04/27/25 04/28/25 04/28/25 Range/Units 20:15 06:02 06:19 Sodium (137-145) mmol/L Potassium (3.5-5.1) mmol/L Chloride (98-107) mmol/L BUN (7-17) mg/dL Creatinine (0.52-1.04) mg/dL Glucose (74-99) mg/dL POC Glucose (mg/dL) 166 H 55 L 64 L (70-110) mg/dL 04/28/25 Range/Units 06:28 Sodium 132 L (137-145) mmol/L Potassium 5.4 H (3.5-5.1) mmol/L Chloride 93 L (98-107) mmol/L BUN 67 H (7-17) mg/dL Creatinine 2.83 H (0.52-1.04) mg/dL Glucose 54 L (74-99) mg/dL POC Glucose (mg/dL) (70-110) mg/dL Assessment and Plan Assessment: 1. Acute allograft dysfunction secondary to ATN secondary to cardiorenal syndrome. Creatinine 3.27 on admission and is 2.85 today. UA from March 2025 showed no proteinuria. No hydronephrosis of the transplanted kidney noted on ultrasound on April 05, 2025. Elevated tacrolimus level contributing to acute kidney injury. 2. Chronic kidney disease stage IIIb with recent creatinine near 2. 3. Acute on chronic systolic CHF ejection fraction of 45%. 4. Volume overload. Improving with diuresis. 5. Status post living related renal allograft in 2008. Tacrolimus level 11.2 on 04/25/2025. 6. Diabetes mellitus. 7. Coronary disease status post CABG. 8. Acute hypoxic respiratory failure secondary to volume overload. Improved. Plan: Hold tacrolimus for now. Resume at lower dose in 1 to 2 days. Continue with oral Lasix Repeat labs in a.m. Continue to avoid nephrotoxic agents Continue with current dose of Myfortic.
[2025-04-28 12:02] LABS: Glucose,Whole Blood 149 mg/dL (70-110)
--- NOTE | 2025-04-28 12:28 | P.PN ---
Subjective HISTORY OF PRESENT ILLNESS: This is a 74-year-old female patient of Dr. Helen Girard with past medical history significant for coronary artery disease status post bypass grafting, left bundle branch block with bradycardia, kidney failure status post renal transplant, hypertension, diabetes mellitus, dyslipidemia, former nicotine dependence, obesity and chronic systolic heart failure. Patient recently underwent dual- chamber pacemaker implantation with conduction system pacing and left bundle pacing for symptomatic bradycardia, left bundle branch block morphology with ND interval 174, presyncope. This was performed on 04/04/2025. She had an a dmission last week for acute systolic heart failure and was switched to oral Lasix and discharged home. Patient returns with difficulty breathing. She states she had sudden onset yesterday of difficulty with breathing and she thought initially it was because the weather was hot and humid. She states that she has not been eating very well and her son made her appointment with Dr. Preston. She denies chest pain. She only has shortness of breath. She states at 1 point she felt like she was panting. She denies any weight gain. No lower extremity edema. No palpitations no syncope. She states she has a cough and wheezing. She states she quit smoking 20 years ago. Blood pressure 157/75, heart rate 81, pulse ox 96% on 6 L nasal cannula. Patient is afebrile. Patient states that her breathing is improved since she came into the hospital and she has been on IV Lasix 80 mg every 12 hours. Regarding her kidney transplant, this was done 16 years ago. Patient has been started on IV Lasix 80 mg twice daily and heparin drip. -EKG: Paced rhythm -VQ scan: No defects to suggest pulmonary embolus. -Chest x-ray: Cardiomegaly with trace bilateral pleural effusions. Suspect background COPD. -Laboratory studies: WBC 8.7, hemoglobin 10.7, initial creatinine 3.27 improved to 3.06. Troponins 0.075, 0.137, 0.174. -Home cardiac medications: Amlodipine 5 mg daily, aspirin 81 mg daily, atorv astatin 40 mg at bedtime, Farxiga 10 mg daily, Lasix 40 mg twice daily, hydralazine 75 mg 3 times daily, Imdur 30 mg daily, magnesium oxide 400 mg daily, Toprol XL 100 mg daily, Ranexa 500 mg every 12 hours. -Echocardiogram performed 04/19/2025 revealed mildly reduced LV systolic ejection fraction at 45%, increased LV mass, inferior posterior hypokinesis, inferior septal hypokinesis. -Dual-chamber Medtronic pacemaker implantation with conduction system pacing, left bundle pacing, performed 04/04/2025. 04/26/2025 Patient seen and examined. She states her breathing is better today. She still has chest pain with deep breathing. She does not feel that she is gaining any strength. She states she is starting to eat a little bit better now. Blood pressure 145/73, heart rate 69, pulse ox 97% on 3 L nasal cannula. Repeat blood work reveals sodium 135, potassium 4.9, CO2 32, BUN 56 creatinine 3.04. A1c 6.6. Noted that Farxiga has been resumed by nephrology. 04/27/2025 Patient seen and examined. She states that she has some chest pain with deep breathing. No dizziness no palpitations. Shortness of breath is improved. Blood pressure 131/69, heart rate 68, pulse ox 95% on 1 L nasal cannula. Chest x-ray reveals improved aeration of the lungs with persistent multifocal airspace opacities. Repeat blood work reveals improvement of her renal function with BUN of 60 creatinine 2.85, sodium is 135, potassium 4.8 and CO2 33. She is currently on IV Lasix 40 mg every 12 hours. She has a negative fluid balance and documented weight loss. 04/28/2025 Patient examined this morning at the bedside. Patient is currently sitting up in the chair. She denies any chest pain or pressure. She denies any shortness of breath. She is maintained on room air with oxygen saturations greater than 92%. She has been transitioned to oral diuretics. Creatinine stable at 2.83. Blood pressure 109/69. PHYSICAL EXAM: VITAL SIGNS: Reviewed. GENERAL: Well-developed in no acute distress. NECK: Supple. No JVD or thyromegaly LUNGS: Respirations even and unlabored. Lungs essentially clear to auscultation bilaterally. HEART: Regular rate and rhythm. S1 and S2 heard. EXTREMITIES: Normal range of motion. No clubbing or cyanosis. Peripheral pulses intact. No lower extremity edema ASSESSMENT: Troponin elevation secondary to heart failure and renal failure, no evidence of myocardial injury or ischemia Acute on chronic systolic heart failure Acute kidney injury, improving Status post recent dual-chamber pacemaker implantation, left bundle pacing Coronary artery disease status post bypass grafting Hypertension Dyslipidemia Diabetes mellitus Chronic renal failure status post kidney transplant 2008 PLAN: Continue current cardiac medications including aspirin, Lipitor, Lasix, hydralazine, Imdur, metoprolol, and Ranexa Daily weights and accurate intake and output Repeat BMP in a.m. Further recommendations pending patient course Nurse practitioner note has been reviewed by physician. Signing provider agrees with the documented findings, assessment, and plan of care documented by [employer] as a scribe. Objective - Vital Signs Vital signs: Vital Signs Temp 97.9 F 04/28/25 08:52 Pulse 65 04/28/25 12:12 Resp 16 04/28/25 12:12 BP 109/69 04/28/25 12:12 Pulse Ox 93 L 04/28/25 12:12 FiO2 Intake & Output 04/27/25 04/28/25 04/28/25 18:59 06:59 18:59 Intake Total 560 600 Output Total 400 Balance 560 -400 600 Weight 98 kg Intake: Oral 560 600 Output: Urine 400 Other: Voiding Method External Catheter # Voids 1 - Labs CBC & Chem 7: 04/24/25 23:41 04/28/25 06:28 Labs: Abnormal Lab Results - Last 24 Hours (Table) 04/27/25 04/28/25 04/28/25 Range/Units 20:15 06:02 06:19 Sodium (137-145) mmol/L Potassium (3.5-5.1) mmol/L Chloride (98-107) mmol/L BUN (7-17) mg/dL Creatinine (0.52-1.04) mg/dL Glucose (74-99) mg/dL POC Glucose (mg/dL) 166 H 55 L 64 L (70-110) mg/dL 04/28/25 04/28/25 Range/Units 06:28 11:47 Sodium 132 L (137-145) mmol/L Potassium 5.4 H (3.5-5.1) mmol/L Chloride 93 L (98-107) mmol/L BUN 67 H (7-17) mg/dL Creatinine 2.83 H (0.52-1.04) mg/dL Glucose 54 L (74-99) mg/dL POC Glucose (mg/dL) 149 H (70-110) mg/dL
[2025-04-28 16:40] LABS: Glucose,Whole Blood 196 mg/dL (70-110)
--- NOTE | 2025-04-28 17:51 | P.PN ---
Subjective Progress Note Date: 04/27/25 74-year-old female with past medical history significant for coronary artery disease status post bypass grafting, left bundle branch block with bradycardia, kidney failure status post renal transplant, hypertension, diabetes mellitus, dyslipidemia, recent dual-chamber pacemaker implantation on 04/04/2025 the ER because of shortness of breath. Patient was recently admitted in the hospital and was discharged on 04/19 after being treated for CHF exacerbation. Patient stated she was all right yesterday when she started noticing shortness of breath. Shortness of breath was present on rest as well as exertion. Patient denied any chest pain. Patient denies any palpitation. There is no complaint of orthopnea or PND. Denies any nausea, vomiting abdominal pain. Patient denies any complaint of dizziness. There is no complaint of headache. Because of shortness of breath, patient came to the ER Initial lab work done in the ER showed WBC 8.73, hemoglobin 10.7, platelet count 224, sodium 132, potassium 5.4, BUN 60, creatinine 3.27 GFR 13, glucose 226, calcium 9.3, magnesium 2.3, bilirubin 0.7, AST 22, ALT 17, troponin 0.075 EKG done in the ER showed heart rate of 78, paced rhythm Chest x-ray done in the ER showed pulmonary vascular congestion, small left and trace right pleural effusion Patient admitted to internal medicine service Objective - Vital Signs Vital signs: Vital Signs Temp 98.2 F 04/27/25 08:00 Pulse 78 04/27/25 08:00 Resp 16 04/27/25 08:00 BP 144/54 04/27/25 08:00 Pulse Ox 96 04/27/25 08:00 FiO2 Intake & Output 04/26/25 04/27/25 04/27/25 18:59 06:59 18:59 Intake Total 678 Output Total 1450 Balance 678 -1450 Weight 93 kg Intake: Oral 678 Output: Urine 1450 Other: # Voids 1 - Exam GENERAL: The patient is alert and oriented x3, not in any acute distress. Well developed, well nourished. HEENT: Pupils are round and equally reacting to light. EOMI. No scleral icterus. No conjunctival pallor. Normocephalic, atraumatic. No pharyngeal erythema. No thyromegaly. CARDIOVASCULAR: S1 and S2 present. No murmurs, rubs, or gallops. PULMONARY: Diminished breath sounds at the bases bilaterally ABDOMEN: Soft, nontender, nondistended, normoactive bowel sounds. No palpable organomegaly. MUSCULOSKELETAL: No joint swelling or deformity. EXTREMITIES: No cyanosis, clubbing, or pedal edema. NEUROLOGICAL: Gross neurological examination did not reveal any focal deficits. SKIN: No rashes. - Labs CBC & Chem 7: 04/24/25 23:41 04/28/25 06:28 Labs: Abnormal Lab Results - Last 24 Hours (Table) 04/26/25 04/26/25 04/26/25 Range/Units 12:12 17:00 20:30 Sodium (137-145) mmol/L Chloride (98-107) mmol/L Carbon Dioxide (22-30) mmol/L BUN (7-17) mg/dL Creatinine (0.52-1.04) mg/dL POC Glucose (mg/dL) 209 H 140 H 183 H (70-110) mg/dL 04/27/25 Range/Units 05:29 Sodium 135 L (137-145) mmol/L Chloride 93 L (98-107) mmol/L Carbon Dioxide 33 H (22-30) mmol/L BUN 60 H (7-17) mg/dL Creatinine 2.85 H (0.52-1.04) mg/dL POC Glucose (mg/dL) (70-110) mg/dL Assessment and Plan Assessment: Acute on chronic kidney disease Hyponatremia Hyperkalemia Acute on chronic systolic heart failure Elevated troponin Status post recent dual-chamber pacemaker implantation, left bundle pacing Coronary artery disease status post bypass grafting Hypertension Dyslipidemia Diabetes mellitus Chronic renal failure status post kidney transplant 2008 Monitor vital signs Monitor CBC Monitor CMP Continue telemetry monitoring Strict I's and O's Daily weights Continue IV Lasix 40 every 12 Continue aspirin, Lipitor Monitor blood sugar levels, resume home insulin regimen Continue mycophenolate, tacrolimus Cardiology evaluated, recommended holding Norvasc, decreasing dose of hydralazine to 25 mg 3 times daily and continue with IV diuretics., Recommendations noted from 04/26 Nephrology following
--- NOTE | 2025-04-28 17:58 | P.PN ---
Subjective Progress Note Date: 04/28/25 74-year-old female with past medical history significant for coronary artery disease status post bypass grafting, left bundle branch block with bradycardia, kidney failure status post renal transplant, hypertension, diabetes mellitus, dyslipidemia, recent dual-chamber pacemaker implantation on 04/04/2025 the ER because of shortness of breath. Patient was recently admitted in the hospital and was discharged on 04/19 after being treated for CHF exacerbation. Patient stated she was all right yesterday when she started noticing shortness of breath. Shortness of breath was present on rest as well as exertion. Patient denied any chest pain. Patient denies any palpitation. There is no complaint of orthopnea or PND. Denies any nausea, vomiting abdominal pain. Patient denies any complaint of dizziness. There is no complaint of headache. Because of shortness of breath, patient came to the ER Initial lab work done in the ER showed WBC 8.73, hemoglobin 10.7, platelet count 224, sodium 132, potassium 5.4, BUN 60, creatinine 3.27 GFR 13, glucose 226, calcium 9.3, magnesium 2.3, bilirubin 0.7, AST 22, ALT 17, troponin 0.075 EKG done in the ER showed heart rate of 78, paced rhythm Chest x-ray done in the ER showed pulmonary vascular congestion, small left and trace right pleural effusion Patient admitted to internal medicine service 24-hour interval change 04/28/2025 Patient is seen and evaluated resting comfortably in bed; denies any specific complaints Vital signs are reviewed and are stable Lab review shows sodium of 132, potassium 5.4, BUN/creatinine of 67/2.83 and blood glucose of 54 Cardiology recommending to continue with current cardiac medications including aspirin, Lipitor, Lasix, hydralazine, Imdur, metoprolol and Ranexa Continue to monitor daily weight No treatment recommended for hyperkalemia at this time Will repeat renal function electrolytes tomorrow morning Objective - Vital Signs Vital signs: Vital Signs Temp 97.9 F 04/28/25 08:52 Pulse 64 04/28/25 08:52 Resp 16 04/28/25 08:52 BP 118/67 04/28/25 08:52 Pulse Ox 92 L 04/28/25 09:01 FiO2 Intake & Output 04/27/25 04/28/25 04/28/25 18:59 06:59 18:59 Intake Total 560 600 Output Total 400 Balance 560 -400 600 Weight 98 kg Intake: Oral 560 600 Output: Urine 400 Other: Voiding Method External Catheter # Voids 1 - Exam GENERAL: The patient is alert and oriented x3, not in any acute distress. Well developed, well nourished. HEENT: Pupils are round and equally reacting to light. EOMI. No scleral icterus. No conjunctival pallor. Normocephalic, atraumatic. No pharyngeal erythema. No thyromegaly. CARDIOVASCULAR: S1 and S2 present. No murmurs, rubs, or gallops. PULMONARY: Diminished breath sounds at the bases bilaterally ABDOMEN: Soft, nontender, nondistended, normoactive bowel sounds. No palpable organomegaly. MUSCULOSKELETAL: No joint swelling or deformity. EXTREMITIES: No cyanosis, clubbing, or pedal edema. NEUROLOGICAL: Gross neurological examination did not reveal any focal deficits. SKIN: No rashes. - Labs CBC & Chem 7: 04/24/25 23:41 04/28/25 06:28 Labs: Abnormal Lab Results - Last 24 Hours (Table) 04/27/25 04/27/25 04/28/25 Range/Units 11:33 20:15 06:02 Sodium (137-145) mmol/L Potassium (3.5-5.1) mmol/L Chloride (98-107) mmol/L BUN (7-17) mg/dL Creatinine (0.52-1.04) mg/dL Glucose (74-99) mg/dL POC Glucose (mg/dL) 119 H 166 H 55 L (70-110) mg/dL 04/28/25 04/28/25 Range/Units 06:19 06:28 Sodium 132 L (137-145) mmol/L Potassium 5.4 H (3.5-5.1) mmol/L Chloride 93 L (98-107) mmol/L BUN 67 H (7-17) mg/dL Creatinine 2.83 H (0.52-1.04) mg/dL Glucose 54 L (74-99) mg/dL POC Glucose (mg/dL) 64 L (70-110) mg/dL Assessment and Plan Assessment: Acute on chronic kidney disease Hyponatremia Hyperkalemia Acute on chronic systolic heart failure Elevated troponin Status post recent dual-chamber pacemaker implantation, left bundle pacing Coronary artery disease status post bypass grafting Hypertension Dyslipidemia Diabetes mellitus Chronic renal failure status post kidney transplant 2008 Monitor vital signs Monitor CBC Monitor CMP Continue telemetry monitoring Strict I's and O's Daily weights Continue IV Lasix 40 every 12 Continue aspirin, Lipitor Monitor blood sugar levels, resume home insulin regimen Continue mycophenolate, tacrolimus Cardiology evaluated, recommended holding Norvasc, decreasing dose of hydralazine to 25 mg 3 times daily and continue with IV diuretics., Recommendations noted from 04/26 Nephrology following
[2025-04-28 20:11] LABS: Glucose,Whole Blood 200 mg/dL (70-110)
[2025-04-28] MEDS: INSULIN GLARGINE (LANTUS) 100 UNIT/ML SYR SQ SCH (20:33)
[2025-04-29 06:09] LABS: Glucose,Whole Blood 91 mg/dL (70-110)
[2025-04-29 06:49] LABS: African American GFR (CKD) 14 (>60 ml/min/1.73 sqM); Anion Gap 10 mmol/L; Blood Urea Nitrogen 70 mg/dL (7-17); Calcium 8.8 mg/dL (8.4-10.2); Carbon Dioxide 32 mmol/L (22-30); Chloride 88 mmol/L (98-107); Glucose 75 mg/dL (74-99); Non-African American GFR(CKD) 12 (>60 ml/min/1.73 sqM); Potassium 5.3 mmol/L (3.5-5.1); Sodium 130 mmol/L (137-145)
--- NOTE | 2025-04-29 10:38 | P.PN ---
Subjective Patient is seen for follow-up for acute kidney injury and chronic kidney disease. Renal function is significantly worse with creatinine at 3.5 today. No complaints of shortness of breath. Tacro level was elevated at 11.2 and Prograf was discontinued yesterday. No significant complaints today. Objective - Vital Signs Vital signs: Vital Signs Temp 97.9 F 04/29/25 08:40 Pulse 62 04/29/25 08:40 Resp 16 04/29/25 08:40 BP 98/43 04/29/25 08:40 Pulse Ox 95 04/29/25 08:40 FiO2 Intake & Output 04/28/25 04/29/25 04/29/25 18:59 06:59 18:59 Intake Total 1560 240 Balance 1560 240 Weight 98.7 kg Intake: Oral 1560 240 Other: Voiding Method External Catheter Toilet Toilet # Voids 1 # Bowel Movements 1 - Exam Patient is awake, alert oriented x 3 No acute distress Examination of the heart S1 and S2 Examination of the lungs shows good air entry bilaterally no crackles or w heezing is noted Abdomen is soft nontender Examination of lower extremities showed no evidence of edema 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 - Labs CBC & Chem 7: 04/24/25 23:41 04/29/25 05:37 Labs: Abnormal Lab Results - Last 24 Hours (Table) 04/28/25 04/28/25 04/28/25 Range/Units 11:47 16:21 20:10 Sodium (137-145) mmol/L Potassium (3.5-5.1) mmol/L Chloride (98-107) mmol/L Carbon Dioxide (22-30) mmol/L BUN (7-17) mg/dL Creatinine (0.52-1.04) mg/dL POC Glucose (mg/dL) 149 H 196 H 200 H (70-110) mg/dL 04/29/25 Range/Units 05:37 Sodium 130 L (137-145) mmol/L Potassium 5.3 H (3.5-5.1) mmol/L Chloride 88 L (98-107) mmol/L Carbon Dioxide 32 H (22-30) mmol/L BUN 70 H (7-17) mg/dL Creatinine 3.57 H (0.52-1.04) mg/dL POC Glucose (mg/dL) (70-110) mg/dL Assessment and Plan Assessment: 1. Acute allograft dysfunction secondary to ATN secondary to cardiorenal syndrome. Creatinine 3.27 on admission decreased to 2.8 yesterday but is again up to 3.5 today. Lasix will be discontinued and tacrolimus held due to elevated level of 11.2. UA from March 2025 showed no proteinuria. No hydronephrosis of the transplanted kidney noted on ultrasound on April 05, 2025. Elevated tacrolimus level contributing to acute kidney injury. 2. Chronic kidney disease stage IIIb with recent creatinine near 2. 3. Acute on chronic systolic CHF ejection fraction of 45%. 4. Volume overload. Improving with diuresis. 5. Status post living related renal allograft in 2008. Tacrolimus level 11.2 on 04/25/2025. 6. Diabetes mellitus. 7. Coronary disease status post CABG. 8. Acute hypoxic respiratory failure secondary to volume overload. Improved. Plan: DC Lasix Continue to hold Prograf Resume at lower dose in 1 to 2 days. Repeat labs in a.m. Continue to avoid nephrotoxic agents Continue with current dose of Myfortic.
[2025-04-29 11:39] LABS: Glucose,Whole Blood 126 mg/dL (70-110)
--- NOTE | 2025-04-29 11:53 | P.PN ---
Subjective HISTORY OF PRESENT ILLNESS: This is a 74-year-old female patient of Dr. Helen Girard with past medical history significant for coronary artery disease status post bypass grafting, left bundle branch block with bradycardia, kidney failure status post renal transplant, hypertension, diabetes mellitus, dyslipidemia, former nicotine dependence, obesity and chronic systolic heart failure. Patient recently underwent dual- chamber pacemaker implantation with conduction system pacing and left bundle pacing for symptomatic bradycardia, left bundle branch block morphology with LA interval 174, presyncope. This was performed on 04/04/2025. She had an a dmission last week for acute systolic heart failure and was switched to oral Lasix and discharged home. Patient returns with difficulty breathing. She states she had sudden onset yesterday of difficulty with breathing and she thought initially it was because the weather was hot and humid. She states that she has not been eating very well and her son made her appointment with Dr. Preston. She denies chest pain. She only has shortness of breath. She states at 1 point she felt like she was panting. She denies any weight gain. No lower extremity edema. No palpitations no syncope. She states she has a cough and wheezing. She states she quit smoking 20 years ago. Blood pressure 157/75, heart rate 81, pulse ox 96% on 6 L nasal cannula. Patient is afebrile. Patient states that her breathing is improved since she came into the hospital and she has been on IV Lasix 80 mg every 12 hours. Regarding her kidney transplant, this was done 16 years ago. Patient has been started on IV Lasix 80 mg twice daily and heparin drip. -EKG: Paced rhythm -VQ scan: No defects to suggest pulmonary embolus. -Chest x-ray: Cardiomegaly with trace bilateral pleural effusions. Suspect background COPD. -Laboratory studies: WBC 8.7, hemoglobin 10.7, initial creatinine 3.27 improved to 3.06. Troponins 0.075, 0.137, 0.174. -Home cardiac medications: Amlodipine 5 mg daily, aspirin 81 mg daily, atorv astatin 40 mg at bedtime, Farxiga 10 mg daily, Lasix 40 mg twice daily, hydralazine 75 mg 3 times daily, Imdur 30 mg daily, magnesium oxide 400 mg daily, Toprol XL 100 mg daily, Ranexa 500 mg every 12 hours. -Echocardiogram performed 04/19/2025 revealed mildly reduced LV systolic ejection fraction at 45%, increased LV mass, inferior posterior hypokinesis, inferior septal hypokinesis. -Dual-chamber Medtronic pacemaker implantation with conduction system pacing, left bundle pacing, performed 04/04/2025. 04/26/2025 Patient seen and examined. She states her breathing is better today. She still has chest pain with deep breathing. She does not feel that she is gaining any strength. She states she is starting to eat a little bit better now. Blood pressure 145/73, heart rate 69, pulse ox 97% on 3 L nasal cannula. Repeat blood work reveals sodium 135, potassium 4.9, CO2 32, BUN 56 creatinine 3.04. A1c 6.6. Noted that Farxiga has been resumed by nephrology. 04/27/2025 Patient seen and examined. She states that she has some chest pain with deep breathing. No dizziness no palpitations. Shortness of breath is improved. Blood pressure 131/69, heart rate 68, pulse ox 95% on 1 L nasal cannula. Chest x-ray reveals improved aeration of the lungs with persistent multifocal airspace opacities. Repeat blood work reveals improvement of her renal function with BUN of 60 creatinine 2.85, sodium is 135, potassium 4.8 and CO2 33. She is currently on IV Lasix 40 mg every 12 hours. She has a negative fluid balance and documented weight loss. 04/28/2025 Patient examined this morning at the bedside. Patient is currently sitting up in the chair. She denies any chest pain or pressure. She denies any shortness of breath. She is maintained on room air with oxygen saturations greater than 92%. She has been transitioned to oral diuretics. Creatinine stable at 2.83. Blood pressure 109/69. 04/29/2025 Patient examined this morning at bedside. Patient currently denies any chest pain or pressure. She denies any shortness of breath. Patient has been maintained on oral diuretics. Creatinine today worsened at 3.57. She was evaluated by nephrology and her Lasix was discontinued. PHYSICAL EXAM: VITAL SIGNS: Reviewed. GENERAL: Well-developed in no acute distress. NECK: Supple. No JVD or thyromegaly LUNGS: Respirations even and unlabored. Lungs essentially clear to auscultation bilaterally. HEART: Regular rate and rhythm. S1 and S2 heard. Systolic murmur noted. EXTREMITIES: Normal range of motion. No clubbing or cyanosis. Peripheral pulses intact. No lower extremity edema ASSESSMENT: Troponin elevation secondary to heart failure and renal failure, no evidence of myocardial injury or ischemia Acute on chronic systolic heart failure Acute kidney injury Status post recent dual-chamber pacemaker implantation, left bundle pacing Coronary artery disease status post bypass grafting Hypertension Dyslipidemia Diabetes mellitus Chronic renal failure status post kidney transplant 2008 PLAN: Continue current cardiac medications including aspirin, Lipitor, hydralazine, Imdur, metoprolol, and Ranexa Lasix discontinued this morning secondary to worsening kidney function Daily weights and accurate intake and output Repeat BMP in a.m. Further recommendations pending patient course Nurse practitioner note has been reviewed by physician. Signing provider agrees with the documented findings, assessment, and plan of care documented by BUSINESS SERVICES ANALYST as a scribe. Objective - Vital Signs Vital signs: Vital Signs Temp 97.9 F 04/29/25 08:40 Pulse 62 04/29/25 08:40 Resp 16 04/29/25 08:40 BP 98/43 04/29/25 08:40 Pulse Ox 95 04/29/25 08:40 FiO2 Intake & Output 04/28/25 04/29/25 04/29/25 18:59 06:59 18:59 Intake Total 1560 240 Balance 1560 240 Weight 98.7 kg Intake: Oral 1560 240 Other: Voiding Method External Catheter Toilet Toilet # Voids 1 # Bowel Movements 1 - Labs CBC & Chem 7: 04/24/25 23:41 04/29/25 05:37 Labs: Abnormal Lab Results - Last 24 Hours (Table) 04/28/25 04/28/25 04/28/25 Range/Units 11:47 16:21 20:10 Sodium (137-145) mmol/L Potassium (3.5-5.1) mmol/L Chloride (98-107) mmol/L Carbon Dioxide (22-30) mmol/L BUN (7-17) mg/dL Creatinine (0.52-1.04) mg/dL POC Glucose (mg/dL) 149 H 196 H 200 H (70-110) mg/dL 04/29/25 04/29/25 Range/Units 05:37 11:38 Sodium 130 L (137-145) mmol/L Potassium 5.3 H (3.5-5.1) mmol/L Chloride 88 L (98-107) mmol/L Carbon Dioxide 32 H (22-30) mmol/L BUN 70 H (7-17) mg/dL Creatinine 3.57 H (0.52-1.04) mg/dL POC Glucose (mg/dL) 126 H (70-110) mg/dL
[2025-04-29 16:25] LABS: Glucose,Whole Blood 150 mg/dL (70-110)
[2025-04-29 20:04] LABS: Glucose,Whole Blood 177 mg/dL (70-110)
[2025-04-30 05:59] LABS: Glucose,Whole Blood 94 mg/dL (70-110)
[2025-04-30 06:45] LABS: African American GFR (CKD) 14 (>60 ml/min/1.73 sqM); Anion Gap 8 mmol/L; Blood Urea Nitrogen 74 mg/dL (7-17); Calcium 8.8 mg/dL (8.4-10.2); Carbon Dioxide 33 mmol/L (22-30); Chloride 91 mmol/L (98-107); Glucose 80 mg/dL (74-99); Non-African American GFR(CKD) 12 (>60 ml/min/1.73 sqM); Potassium 5.3 mmol/L (3.5-5.1); Sodium 132 mmol/L (137-145)
[2025-04-30 08:24] VITALS: RESP 18
--- NOTE | 2025-04-30 09:53 | P.PN ---
Subjective HISTORY OF PRESENT ILLNESS: This is a 74-year-old female patient of Dr. Helen Girard with past medical history significant for coronary artery disease status post bypass grafting, left bundle branch block with bradycardia, kidney failure status post renal transplant, hypertension, diabetes mellitus, dyslipidemia, former nicotine dependence, obesity and chronic systolic heart failure. Patient recently underwent dual- chamber pacemaker implantation with conduction system pacing and left bundle pacing for symptomatic bradycardia, left bundle branch block morphology with NE interval 174, presyncope. This was performed on 04/04/2025. She had an a dmission last week for acute systolic heart failure and was switched to oral Lasix and discharged home. Patient returns with difficulty breathing. She states she had sudden onset yesterday of difficulty with breathing and she thought initially it was because the weather was hot and humid. She states that she has not been eating very well and her son made her appointment with Dr. Preston. She denies chest pain. She only has shortness of breath. She states at 1 point she felt like she was panting. She denies any weight gain. No lower extremity edema. No palpitations no syncope. She states she has a cough and wheezing. She states she quit smoking 20 years ago. Blood pressure 157/75, heart rate 81, pulse ox 96% on 6 L nasal cannula. Patient is afebrile. Patient states that her breathing is improved since she came into the hospital and she has been on IV Lasix 80 mg every 12 hours. Regarding her kidney transplant, this was done 16 years ago. Patient has been started on IV Lasix 80 mg twice daily and heparin drip. -EKG: Paced rhythm -VQ scan: No defects to suggest pulmonary embolus. -Chest x-ray: Cardiomegaly with trace bilateral pleural effusions. Suspect background COPD. -Laboratory studies: WBC 8.7, hemoglobin 10.7, initial creatinine 3.27 improved to 3.06. Troponins 0.075, 0.137, 0.174. -Home cardiac medications: Amlodipine 5 mg daily, aspirin 81 mg daily, atorv astatin 40 mg at bedtime, Farxiga 10 mg daily, Lasix 40 mg twice daily, hydralazine 75 mg 3 times daily, Imdur 30 mg daily, magnesium oxide 400 mg daily, Toprol XL 100 mg daily, Ranexa 500 mg every 12 hours. -Echocardiogram performed 04/19/2025 revealed mildly reduced LV systolic ejection fraction at 45%, increased LV mass, inferior posterior hypokinesis, inferior septal hypokinesis. -Dual-chamber Medtronic pacemaker implantation with conduction system pacing, left bundle pacing, performed 04/04/2025. 04/26/2025 Patient seen and examined. She states her breathing is better today. She still has chest pain with deep breathing. She does not feel that she is gaining any strength. She states she is starting to eat a little bit better now. Blood pressure 145/73, heart rate 69, pulse ox 97% on 3 L nasal cannula. Repeat blood work reveals sodium 135, potassium 4.9, CO2 32, BUN 56 creatinine 3.04. A1c 6.6. Noted that Farxiga has been resumed by nephrology. 04/27/2025 Patient seen and examined. She states that she has some chest pain with deep breathing. No dizziness no palpitations. Shortness of breath is improved. Blood pressure 131/69, heart rate 68, pulse ox 95% on 1 L nasal cannula. Chest x-ray reveals improved aeration of the lungs with persistent multifocal airspace opacities. Repeat blood work reveals improvement of her renal function with BUN of 60 creatinine 2.85, sodium is 135, potassium 4.8 and CO2 33. She is currently on IV Lasix 40 mg every 12 hours. She has a negative fluid balance and documented weight loss. 04/28/2025 Patient examined this morning at the bedside. Patient is currently sitting up in the chair. She denies any chest pain or pressure. She denies any shortness of breath. She is maintained on room air with oxygen saturations greater than 92%. She has been transitioned to oral diuretics. Creatinine stable at 2.83. Blood pressure 109/69. 04/29/2025 Patient examined this morning at bedside. Patient currently denies any chest pain or pressure. She denies any shortness of breath. Patient has been maintained on oral diuretics. Creatinine today worsened at 3.57. She was evaluated by nephrology and her Lasix was discontinued. 04/30 Patient seen and examined. Patient denies any chest pain or pressure. No significant shortness of breath. Has been walking to the bathroom and no lightheadedness. Prograf was discontinued secondary to elevated serum levels by nephrology and felt in part because for acute kidney injury. Lasix additionally was discontinued. She admits to some diet/appetite. PHYSICAL EXAM: VITAL SIGNS: Reviewed. GENERAL: Well-developed in no acute distress. NECK: Supple. No JVD or thyromegaly LUNGS: Respirations even and unlabored. Lungs essentially clear to auscultation bilaterally. HEART: Regular rate and rhythm. S1 and S2 heard. Systolic murmur noted. EXTREMITIES: Normal range of motion. No clubbing or cyanosis. Peripheral pulses intact. No lower extremity edema ASSESSMENT: Troponin elevation secondary to heart failure and renal failure, no evidence of myocardial injury or ischemia Acute on chronic systolic heart failure Acute kidney injury Status post recent dual-chamber pacemaker implantation, left bundle pacing Coronary artery disease status post bypass grafting Hypertension Dyslipidemia Diabetes mellitus Chronic renal failure status post kidney transplant 2008 PLAN: Continue current cardiac medications including aspirin, Lipitor, hydralazine, Imdur, metoprolol, and Ranexa Lasix discontinued secondary to worsening kidney function Appears relatively euvolemic and stable from a cardiology standpoint. Continue to monitor creatinine with acute kidney injury possibly more related to Prograf levels. Continue to monitor patient. Objective - Vital Signs Vital signs: Vital Signs Temp 97.8 F 04/30/25 08:23 Pulse 63 04/30/25 08:23 Resp 18 04/30/25 08:23 BP 124/72 04/30/25 08:23 Pulse Ox 96 04/30/25 08:23 FiO2 Intake & Output 04/29/25 04/30/25 04/30/25 18:59 06:59 18:59 Intake Total 720 240 Balance 720 240 Weight 99.7 kg Intake: Oral 720 240 Other: Voiding Method Toilet Toilet # Voids 1 # Bowel Movements 1 - Labs CBC & Chem 7: 04/24/25 23:41 04/30/25 05:30 Labs: Abnormal Lab Results - Last 24 Hours (Table) 04/29/25 04/29/25 04/29/25 Range/Units 11:38 16:18 20:03 Sodium (137-145) mmol/L Potassium (3.5-5.1) mmol/L Chloride (98-107) mmol/L Carbon Dioxide (22-30) mmol/L BUN (7-17) mg/dL Creatinine (0.52-1.04) mg/dL POC Glucose (mg/dL) 126 H 150 H 177 H (70-110) mg/dL 04/30/25 Range/Units 05:30 Sodium 132 L (137-145) mmol/L Potassium 5.3 H (3.5-5.1) mmol/L Chloride 91 L (98-107) mmol/L Carbon Dioxide 33 H (22-30) mmol/L BUN 74 H (7-17) mg/dL Creatinine 3.54 H (0.52-1.04) mg/dL POC Glucose (mg/dL) (70-110) mg/dL
[2025-04-30 11:21] LABS: Glucose,Whole Blood 106 mg/dL (70-110)
--- NOTE | 2025-04-30 11:37 | P.PN ---
Subjective Patient is seen for follow-up for acute kidney injury and chronic kidney disease. Renal function is stable with creatinine staying at 3.5 No complaints of shortness of breath. Tacro level was elevated at 11.2 and Prograf was discontinued No significant complaints today. 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 - Labs CBC & Chem 7: 04/24/25 23:41 04/30/25 05:30 Labs: Abnormal Lab Results - Last 24 Hours (Table) 04/29/25 04/29/25 04/29/25 Range/Units 11:38 16:18 20:03 Sodium (137-145) mmol/L Potassium (3.5-5.1) mmol/L Chloride (98-107) mmol/L Carbon Dioxide (22-30) mmol/L BUN (7-17) mg/dL Creatinine (0.52-1.04) mg/dL POC Glucose (mg/dL) 126 H 150 H 177 H (70-110) mg/dL 04/30/25 Range/Units 05:30 Sodium 132 L (137-145) mmol/L Potassium 5.3 H (3.5-5.1) mmol/L Chloride 91 L (98-107) mmol/L Carbon Dioxide 33 H (22-30) mmol/L BUN 74 H (7-17) mg/dL Creatinine 3.54 H (0.52-1.04) mg/dL POC Glucose (mg/dL) (70-110) mg/dL Assessment and Plan Assessment: 1. Acute allograft dysfunction secondary to ATN secondary to cardiorenal syndrome. Creatinine 3.27 on admission decreased to 2.8 yesterday but is again up to 3.5. Lasix has been discontinued and tacrolimus held due to elevated level of 11.2. UA from March 2025 showed no proteinuria. No hydronephrosis of the transplanted kidney noted on ultrasound on April 05, 2025. Elevated tacrolimus level contributing to acute kidney injury. 2. Chronic kidney disease stage IIIb with recent creatinine near 2. 3. Acute on chronic systolic CHF ejection fraction of 45%. 4. Volume overload. Improving with diuresis. 5. Status post living related renal allograft in 2008. Tacrolimus level 11.2 on 04/25/2025. 6. Diabetes mellitus. 7. Coronary disease status post CABG. 8. Acute hypoxic respiratory failure secondary to volume overload. Improved. Plan: Continue off of Lasix Continue to hold Prograf Check level today Resume at lower dose in 1 to 2 days. Repeat labs in a.m. Continue to avoid nephrotoxic agents Continue with current dose of Myfortic.
[2025-04-30 16:23] LABS: Glucose,Whole Blood 106 mg/dL (70-110)
--- NOTE | 2025-04-30 19:06 | P.PN ---
Subjective 74-year-old female with past medical history significant for coronary artery disease status post bypass grafting, left bundle branch block with bradycardia, kidney failure status post renal transplant, hypertension, diabetes mellitus, dyslipidemia, recent dual-chamber pacemaker implantation on 04/04/2025 the ER because of shortness of breath. Patient was recently admitted in the hospital and was discharged on 04/19 after being treated for CHF exacerbation. Patient stated she was all right yesterday when she started noticing shortness of breat h. Shortness of breath was present on rest as well as exertion. Patient denied any chest pain. Patient denies any palpitation. There is no complaint of orthopnea or PND. Denies any nausea, vomiting abdominal pain. Patient denies any complaint of dizziness. There is no complaint of headache. Because of shortness of breath, patient came to the ER Initial lab work done in the ER showed WBC 8.73, hemoglobin 10.7, platelet count 224, sodium 132, potassium 5.4, BUN 60, creatinine 3.27 GFR 13, glucose 226, calcium 9.3, magnesium 2.3, bilirubin 0.7, AST 22, ALT 17, troponin 0.075 EKG done in the ER showed heart rate of 78, paced rhythm Chest x-ray done in the ER showed pulmonary vascular congestion, small left and trace right pleural effusion Patient admitted to internal medicine service 24-hour interval change 04/28/2025 Patient is seen and evaluated resting comfortably in bed; denies any specific complaints Vital signs are reviewed and are stable Lab review shows sodium of 132, potassium 5.4, BUN/creatinine of 67/2.83 and blood glucose of 54 Cardiology recommending to continue with current cardiac medications including aspirin, Lipitor, Lasix, hydralazine, Imdur, metoprolol and Ranexa Continue to monitor daily weight No treatment recommended for hyperkalemia at this time Will repeat renal function electrolytes tomorrow morning 04/30 Patient with no chest pain or dyspnea No leg swelling She has some basilar crepitation on the left side prograf Is on hold to be resumed in 1 to 2 days per budget engineer Lasix was stopped because of elevated creatinine Today instruction dean continue the same cardiac medication and follow the patient is stable Will budget engineer opted to keep monitoring elevated creatinine while holding Lasix, holding IV fluid or anything else. Also check Prograf level which might be resumed in 1 to 2 days. Objective - Vital Signs Vital signs: Vital Signs Temp 97.8 F 04/30/25 08:23 Pulse 63 04/30/25 08:23 Resp 18 04/30/25 08:23 BP 124/72 04/30/25 08:23 Pulse Ox 96 04/30/25 08:23 FiO2 Intake & Output 04/29/25 04/30/25 04/30/25 18:59 06:59 18:59 Intake Total 720 240 Balance 720 240 Weight 99.7 kg Intake: Oral 720 240 Other: Voiding Method Toilet Toilet Toilet # Voids 1 # Bowel Movements 1 - Exam Likely GENERAL: The patient is alert and oriented x3, not in any acute distress. Well developed, well nourished. HEENT: Pupils are round and equally reacting to light. EOMI. No scleral icterus. No conjunctival pallor. Normocephalic, atraumatic. No pharyngeal erythema. No thyromegaly. CARDIOVASCULAR: S1 and S2 present. No murmurs, rubs, or gallops. PULMONARY: Chest is clear to auscultation, no wheezing , no crackles. ABDOMEN: Soft, nontender, nondistended, normoactive bowel sounds. No palpable organomegaly. MUSCULOSKELETAL: No joint swelling or deformity. EXTREMITIES: No cyanosis, clubbing, or pedal edema. NEUROLOGICAL: Gross neurological examination did not reveal any focal deficits. SKIN: No rashes. no petechiae. - Labs CBC & Chem 7: 04/24/25 23:41 04/30/25 05:30 Labs: Abnormal Lab Results - Last 24 Hours (Table) 04/29/25 04/29/25 04/30/25 Range/Units 16:18 20:03 05:30 Sodium 132 L (137-145) mmol/L Potassium 5.3 H (3.5-5.1) mmol/L Chloride 91 L (98-107) mmol/L Carbon Dioxide 33 H (22-30) mmol/L BUN 74 H (7-17) mg/dL Creatinine 3.54 H (0.52-1.04) mg/dL POC Glucose (mg/dL) 150 H 177 H (70-110) mg/dL Assessment and Plan Assessment: Acute on chronic kidney disease Hyponatremia improved Hyperkalemia improved Acute on chronic systolic heart failure. Currently euvolemic Elevated troponin Status post recent dual-chamber pacemaker implantation, left bundle pacing Coronary artery disease status post bypass grafting Hypertension Dyslipidemia Diabetes mellitus Chronic renal failure status post kidney transplant 2008 Plan: Continue hold Lasix Continue current trend creatinine Continue monitoring Prograf level Nephrology team consult Cardiac team consult. Patient currently euvolemic well. Keep holding Lasix Labs and medication were reviewed.. Continue same treatment. Continue with symptomatic treatment. Resume home medication. Monitor labs and vitals. DVT and GI prophylaxis. Further recommendations as per clinical course of the patie nt DVT prophylaxis: Subcutaneous heparin GI Prophylaxis: Pepcid PT/OT: Pending Prognosis is guarded
[2025-04-30 20:16] LABS: Glucose,Whole Blood 104 mg/dL (70-110)
[2025-04-30] MEDS: HEPARIN SODIUM,PORCINE 5,000 UNIT/ML 1 ML VIAL SQ SCH (20:35)
[2025-04-30] MEDS: FAMOTIDINE 20 MG/2 ML VIAL IV SCH (20:35)
[2025-05-01 05:59] LABS: Glucose,Whole Blood 93 mg/dL (70-110)
[2025-05-01 06:55] LABS: African American GFR (CKD) 15 (>60 ml/min/1.73 sqM); Anion Gap 11 mmol/L; Blood Urea Nitrogen 77 mg/dL (7-17); Calcium 9.1 mg/dL (8.4-10.2); Carbon Dioxide 29 mmol/L (22-30); Chloride 90 mmol/L (98-107); Glucose 72 mg/dL (74-99); Non-African American GFR(CKD) 13 (>60 ml/min/1.73 sqM); Potassium 5.6 mmol/L (3.5-5.1); Sodium 130 mmol/L (137-145)
[2025-05-01 07:30] LABS: Basophils # (A) 0.08 10*3/uL (0.00-0.10); Basophils % (A) 1.0 %; Eosinophils # (A) 0.24 10*3/uL (0.04-0.35); Eosinophils % (A) 2.9 %; HCT 33.2 % (37.2-46.3); HGB 10.9 g/dL (12.0-15.0); Lymphocytes # (A) 0.88 10*3/uL (0.90-5.00); Lymphocytes % (A) 10.6 %; MCH 27.5 pg (27.0-32.0); MCHC 32.8 g/dL (32.0-37.0); MCV 83.6 fL (80.0-97.0); Monocytes # (A) 0.74 10*3/uL (0.20-1.00); Monocytes % (A) 8.9 %; Neutrophils # (A) 6.17 10*3/uL (1.80-7.70); Neutrophils % (A) 74.4 %; Platelet Count 319 10*3/uL (140-440); RBC 3.97 10*6/uL (4.10-5.20); RDW 13.3 % (11.5-14.5); WBC 8.29 10*3/uL (4.50-10.00)
--- NOTE | 2025-05-01 09:03 | P.PN ---
Subjective This is a 74-year-old female patient of Dr. Helen Girard with past medical history significant for coronary artery disease status post bypass grafting, left bundle branch block with bradycardia, kidney failure status post renal transplant, hypertension, diabetes mellitus, dyslipidemia, former nicotine dependence, obesity and chronic systolic heart failure. Patient recently underwent dual- chamber pacemaker implantation with conduction system pacing and left bundle pacing for symptomatic bradycardia, left bundle branch block morphology with OH interval 174, presyncope. This was performed on 04/04/2025. She had an admission last week for acute systolic heart failure and was switched to oral Lasix and discharged home. Patient returns with difficulty breathing. She states she had sudden onset yesterday of difficulty with breathing and she th ought initially it was because the weather was hot and humid. She states that she has not been eating very well and her son made her appointment with Dr. Preston. She denies chest pain. She only has shortness of breath. She states at 1 point she felt like she was panting. She denies any weight gain. No lower extremity edema. No palpitations no syncope. She states she has a cough and wheezing. She states she quit smoking 20 years ago. Blood pressure 157/75, heart rate 81, pulse ox 96% on 6 L nasal cannula. Patient is afebrile. Patient states that her breathing is improved since she came into the hospital and she has been on IV Lasix 80 mg every 12 hours. Regarding her kidney transplant, this was done 16 years ago. Patient has been started on IV Lasix 80 mg twice daily and heparin drip. -EKG: Paced rhythm -VQ scan: No defects to suggest pulmonary embolus. -Chest x-ray: Cardiomegaly with trace bilateral pleural effusions. Suspect background COPD. -Laboratory studies: WBC 8.7, hemoglobin 10.7, initial creatinine 3.27 improved to 3.06. Troponins 0.075, 0.137, 0.174. -Home cardiac medications: Amlodipine 5 mg daily, aspirin 81 mg daily, atorvastatin 40 mg at bedtime, Farxiga 10 mg daily, Lasix 40 mg twice daily, hydralazine 75 mg 3 times daily, Imdur 30 mg daily, magnesium oxide 400 mg daily, Toprol XL 100 mg daily, Ranexa 500 mg every 12 hours. -Echocardiogram performed 04/19/2025 revealed mildly reduced LV systolic ejection fraction at 45%, increased LV mass, inferior posterior hypokinesis, inferior septal hypokinesis. -Dual-chamber [employer] pacemaker implantation with conduction system pacing, left bundle pacing, performed 04/04/2025. 04/26/2025 Patient seen and examined. She states her breathing is better today. She still has chest pain with deep breathing. She does not feel that she is gaining any strength. She states she is starting to eat a little bit better now. Blood pressure 145/73, heart rate 69, pulse ox 97% on 3 L nasal cannula. Repeat blood work reveals sodium 135, potassium 4.9, CO2 32, BUN 56 creatinine 3.04. A1c 6.6. Noted that Farxiga has been resumed by nephrology. 04/27/2025 Patient seen and examined. She states that she has some chest pain with deep breathing. No dizziness no palpitations. Shortness of breath is improved. Blood pressure 131/69, heart rate 68, pulse ox 95% on 1 L nasal cannula. Chest x-ray reveals improved aeration of the lungs with persistent multifocal airspace opacities. Repeat blood work reveals improvement of her renal function with BUN of 60 creatinine 2.85, sodium is 135, potassium 4.8 and CO2 33. She is currently on IV Lasix 40 mg every 12 hours. She has a negative fluid balance and documented weight loss. 04/28/2025 Patient examined this morning at the bedside. Patient is currently sitting up in the chair. She denies any chest pain or pressure. She denies any shortness of breath. She is maintained on room air with oxygen saturations greater than 92%. She has been transitioned to oral diuretics. Creatinine stable at 2.83. Blood pressure 109/69. 04/29/2025 Patient examined this morning at bedside. Patient currently denies any chest pain or pressure. She denies any shortness of breath. Patient has been maintained on oral diuretics. Creatinine today worsened at 3.57. She was evaluated by nephrology and her Lasix was discontinued. 04/30 Patient seen and examined. Patient denies any chest pain or pressure. No significant shortness of breath. Has been walking to the bathroom and no lightheadedness. Prograf was discontinued secondary to elevated serum levels by nephrology and felt in part because for acute kidney injury. Lasix additionally was discontinued. She admits to some diet/appetite. 05/01 Patient seen and examined. Patient denies any chest pain or pressure. Creatinine 3.5, mildly improved. Hyperkalemia noted on blood work. She states she has adequate appetite. PHYSICAL EXAM: VITAL SIGNS: Reviewed. GENERAL: Well-developed in no acute distress. NECK: Supple. No JVD or thyromegaly LUNGS: Respirations even and unlabored. Lungs essentially clear to auscultation bilaterally. HEART: Regular rate and rhythm. S1 and S2 heard. Systolic murmur noted. EXTREMITIES: Normal range of motion. No clubbing or cyanosis. Peripheral pulses intact. No lower extremity edema ASSESSMENT: Troponin elevation secondary to heart failure and renal failure, no evidence of myocardial injury or ischemia Acute on chronic systolic heart failure Acute kidney injury Status post recent dual-chamber pacemaker implantation, left bundle pacing Coronary artery disease status post bypass grafting Hypertension Dyslipidemia Diabetes mellitus Chronic renal failure status post kidney transplant 2008 PLAN: Continue current cardiac medications including aspirin, Lipitor, hydralazine, Imdur, metoprolol, and Ranexa Lasix discontinued secondary to worsening kidney function Appears relatively euvolemic and stable from a cardiology standpoint. Continue to monitor creatinine with acute kidney injury possibly more related to Prograf levels. No further recommendations from a cardiology standpoint. Please call with any questions. Objective - Vital Signs Vital signs: Vital Signs Temp 97.9 F 05/01/25 03:18 Pulse 64 05/01/25 03:18 Resp 18 05/01/25 03:18 BP 132/71 05/01/25 03:18 Pulse Ox 94 L 05/01/25 03:18 FiO2 Intake & Output 04/30/25 05/01/25 05/01/25 18:59 06:59 18:59 Intake Total 240 Balance 240 Weight 98.8 kg Intake: Oral 240 Other: Voiding Method Toilet Toilet # Voids 2 2 - Labs CBC & Chem 7: 05/01/25 05:46 05/01/25 05:46 Labs: Abnormal Lab Results - Last 24 Hours (Table) 05/01/25 05/01/25 Range/Units 05:46 05:46 RBC 3.97 L (4.10-5.20) 10*6/uL Hgb 10.9 L (12.0-15.0) g/dL Hct 33.2 L (37.2-46.3) % Immature Gran # 0.18 H (0.00-0.04) 10*3/uL Lymphocytes # 0.88 L (0.90-5.00) 10*3/uL Sodium 130 L (137-145) mmol/L Potassium 5.6 H (3.5-5.1) mmol/L Chloride 90 L (98-107) mmol/L BUN 77 H (7-17) mg/dL Creatinine 3.35 H (0.52-1.04) mg/dL Glucose 72 L (74-99) mg/dL
[2025-05-01] MEDS: SODIUM ZIRCONIUM CYCLOSILICATE 10 GM PACKET PO SCH (11:18)
--- NOTE | 2025-05-01 11:26 | P.PN ---
Subjective Patient is seen for follow-up for acute kidney injury and chronic kidney disease. Renal function is stable with creatinine improved to 3.3 today. Potassium at 5.6. No complaints of shortness of breath. Tacro level was elevated at 11.2 and Prograf was discontinued No significant complaints today. Objective - Vital Signs Vital signs: Vital Signs Temp 98.1 F 05/01/25 11:21 Pulse 63 05/01/25 11:21 Resp 18 05/01/25 11:21 BP 137/73 05/01/25 11:21 Pulse Ox 95 05/01/25 11:21 FiO2 Intake & Output 04/30/25 05/01/25 05/01/25 18:59 06:59 18:59 Intake Total 240 Balance 240 Weight 98.8 kg Intake: Oral 240 Other: Voiding Method Toilet Toilet # Voids 2 2 - Exam Patient is awake, alert oriented x 3 Examination of the heart S1 and S2 Examination of the lungs bilateral breath sounds are heard no crackles or wheezing is heard Abdomen is soft nontender Examination of lower extremities showed no evidence of edema [employer] exam grossly intact - Labs CBC & Chem 7: 05/01/25 05:46 05/01/25 05:46 Labs: Abnormal Lab Results - Last 24 Hours (Table) 05/01/25 05/01/25 Range/Units 05:46 05:46 RBC 3.97 L (4.10-5.20) 10*6/uL Hgb 10.9 L (12.0-15.0) g/dL Hct 33.2 L (37.2-46.3) % Immature Gran # 0.18 H (0.00-0.04) 10*3/uL Lymphocytes # 0.88 L (0.90-5.00) 10*3/uL Sodium 130 L (137-145) mmol/L Potassium 5.6 H (3.5-5.1) mmol/L Chloride 90 L (98-107) mmol/L BUN 77 H (7-17) mg/dL Creatinine 3.35 H (0.52-1.04) mg/dL Glucose 72 L (74-99) mg/dL Assessment and Plan Assessment: 1. Acute allograft dysfunction secondary to ATN secondary to cardiorenal syndrome. Creatinine 3.27 on admission decreased to 2.8 but was again up to 3.5, slightly decreased to 3.3 today. Lasix has been discontinued and tac rolimus held due to elevated level of 11.2. UA from March 2025 showed no proteinuria. No hydronephrosis of the transplanted kidney noted on ultrasound on April 05, 2025. Elevated tacrolimus level contributing to acute kidney injury. 2. Chronic kidney disease stage IIIb with recent creatinine near 2. 3. Acute on chronic systolic CHF ejection fraction of 45%. 4. Volume overload. Improving with diuresis. 5. Status post living related renal allograft in 2008. Tacrolimus level 11.2 on 04/25/2025. 6. Diabetes mellitus. 7. Coronary disease status post CABG. 8. Acute hypoxic respiratory failure secondary to volume overload. Improved. 9. Hyperkalemia associated with acute kidney injury, CKD and elevated tacrolimus levels. Plan: Add Lokelma for hyperkalemia Maintain low potassium diet Resume low-dose Prograf at 0.5 mg twice a day and repeat levels as outpatient. Follow-up as outpatient in 1 week. Continue off of Lasix Follow-up on tacro levels from yesterday Continue with current dose of Myfortic.
[2025-05-01 11:27] LABS: Glucose,Whole Blood 145 mg/dL (70-110)
[2025-05-01 15:24] VITALS: BP 140/81; PULSE 74; TEMP 98.8
[2025-05-01] MEDS ORDERED: TACROLIMUS 0.5 MG CAP PO SCH (21:00)
[2025-05-02] MEDS ORDERED: FAMOTIDINE 20 MG/2 ML VIAL IV SCH (09:00)
== END 2025-05-01 16:49 | disposition home health service (06) | DRG 291 ==
LOC: EC 23:25 → 3SCARD 04-25 02:40
PROVIDERS: ADMIT Hospitalist; ATTEND Hospitalist
DX: I13.0 Hypertensive heart and chronic kidney disease with heart failure and stage 1 through stage 4 chronic kidney disease, or unspecified chronic kidney disease (principal); I50.23 Acute on chronic systolic (congestive) heart failure; J96.01 Acute respiratory failure with hypoxia; N17.0 Acute kidney failure with tubular necrosis; T86.19 Other complication of kidney transplant; E11.22 Type 2 diabetes mellitus with diabetic chronic kidney disease; N18.32 Chronic kidney disease, stage 3b; E66.9 Obesity, unspecified; E87.1 Hypo-osmolality and hyponatremia; Z79.4 Long term (current) use of insulin; R79.89 Other specified abnormal findings of blood chemistry; E78.5 Hyperlipidemia, unspecified; I25.10 Atherosclerotic heart disease of native coronary artery without angina pectoris; Y83.0 Surgical operation with transplant of whole organ as the cause of abnormal reaction of the patient, or of later complication, without mention of misadventure at the time of the procedure; Z95.0 Presence of cardiac pacemaker; E87.5 Hyperkalemia; I25.2 Old myocardial infarction; I44.7 Left bundle-branch block, unspecified; Z79.82 Long term (current) use of aspirin; Z79.84 Long term (current) use of oral hypoglycemic drugs; Z79.899 Other long term (current) drug therapy; Z82.49 Family history of ischemic heart disease and other diseases of the circulatory system; Z87.891 Personal history of nicotine dependence; Z90.710 Acquired absence of both cervix and uterus; Z95.1 Presence of aortocoronary bypass graft; Z88.5 Allergy status to narcotic agent; Z88.6 Allergy status to analgesic agent; Z91.048 Other nonmedicinal substance allergy status; Z91.018 Allergy to other foods; Z87.19 Personal history of other diseases of the digestive system
CPT/HCPCS: 36415; 71045; 71046; 80048; 80053; 80197; 83036; 83605; 83735; 83880; 84484; 85025; 85610; 85730; 93005; 94640; 96374; 96375; 99291